=== PATIENT | male | born 1955 | race Caucasian/White ===

== ENCOUNTER → 2018-07-14 12:47 | Outpatient (CLI) | payer OTHER, SELFPAY ==
[2015-12-21 12:04] VITALS: BMI 23.8
[2018-07-14 14:04] LABS: Absolute Lymphocyte Count 2.51 X10^3/ul (0.83-4.51); Absolute Neutrophil Count 4.9 X10^3/uL (2.0-7.7); Basophil# 0.05 X10^3/uL; Basophil% 0.6 % (0-1); Eosinophil# 0.35 X10^3/uL; Eosinophils% 4.1 % (0-5); Hematocrit 49.6 % (40-54); Hemoglobin 16.7 g/dl (13.0-16.5); Lymphocyte # 2.51 X10^3/ul (4.0); Lymphocyte % 29.7 % (19-41); Mean Corp Hgb Conc 33.7 g/gl (32-36); Mean Corpuscular Hgb 31.7 pg (27.0-32.0); Mean Corpuscular Volume 94.3 fL (80-94); Mean Platelet Vol. 10.5 fl (6.2-12.0); Monocyte# 0.59 X10^3/uL; Neutrophil # 4.92 X10^3/uL (2.7-7.7); Neutrophil % 58.4 % (47-70); Platelet Count 250 K/mm3 (150-450); RBC Distribution Width SD 44.8 fl (35.1-43.9); Red Blood Count 5.26 M/mm3 (4.6-6.2); White Blood Count 8.4 K/mm3 (4.4-11.0)
[2018-07-14 14:07] LABS: POSITIVE COUNT NO; POSITIVE DIFFERENTIAL NO; POSITIVE MORPHOLOGY NO
[2018-07-14 14:17] LABS: ALB/GLOB Ratio 1.3 RATIO (0.9-2.4); AST(SGOT) 14 U/L (15-37); Alanine Aminotransfer ALT/SGPT 29 U/L (16-61); Albumin, Serum 4.4 g/dL (3.2-5.0); Alkaline Phosphatase 84 U/L (45-117); Anion Gap 6 (5-15); BUN 21 mg/dL (7-18); BUN/Creat Ratio 22.6 RATIO (10-20); Calcium,Total 9.2 mg/dL (8.5-10.1); Chloride 108 mmol/L (98-107); Cholesterol 220 mg/dL (200); Creatinine, Serum 0.93 mg/dL (0.70-1.30); EST Glomerular Filtration Rate 87 mL/min (>60); Est Glom Filt Rate - Afr Amer 105 mL/min (>60); Globulin 3.5 g/dL (2.2-4.2); Glucose 88 mg/dL (74-106); High Density Lipoprotein 48 mg/dL; Potassium 4.7 mmol/L (3.5-5.1); Protein, Total 7.9 g/dL (6.4-8.2); Sodium Level 143 mmol/L (136-145); Triglycerides 87 mg/dL; Very Low Density Lipoprotein 17 mg/dL (5-40)
[2018-07-14 14:18] LABS: Hemoglobin A1c 5.8 % (4.2-6.3)
== END ==
PROVIDERS: Family Provider Family Medicine; PCP Family Medicine; Referring Provider Family Medicine; Visit Provider Family Medicine
DX: I25.10 Atherosclerotic heart disease of native coronary artery without angina pectoris (principal); J40 Bronchitis, not specified as acute or chronic; K21.9 Gastro-esophageal reflux disease without esophagitis
CPT/HCPCS: 36415; 80053; 80061; 83036; 85025

== ENCOUNTER → 2018-07-30 09:20 | Outpatient (CLI) | payer OTHER, SELFPAY ==
[2015-12-21 12:04] VITALS: BMI 23.8
[2018-07-30 10:49] LABS: Cholesterol 220 mg/dL (200); Triglycerides 72 mg/dL
[2018-07-30 10:50] LABS: High Density Lipoprotein 46 mg/dL; Very Low Density Lipoprotein 14 mg/dL (5-40)
== END ==
PROVIDERS: Family Provider Family Medicine; PCP Family Medicine; Referring Provider Family Medicine; Visit Provider Family Medicine
DX: I25.10 Atherosclerotic heart disease of native coronary artery without angina pectoris (principal)
CPT/HCPCS: 36415; 80061

== ENCOUNTER 2018-08-07 00:16 | Emergency (ER) | payer OTHER, SELFPAY ==
[2018-08-07 00:17] VITALS: BP 172/98; PULSE 95; RESP 16; TEMP 36.8; O2SAT 97; BMI 24.5
--- NOTE | 2018-08-07 00:42 | ED.VISSUMM ---
- ER Visit Summary Date of Service: 08/07/18 Chief Complaint: [] Hematuria History of Present Illness: The patient is a 63 M emplaning of hematuria. For the last 4 days. He had intermittent hematuria and then tonight became right red blood with clots. He is on a baby aspirin that he started on Nolen's Day July 23. Denies any other symptoms. He is never had any previous urologic urology problems. He is never had this before. Physical Examination: Vital signs reviewed General: Well-nourished well-developed Head: Normocephalic atraumatic Eyes: Pupils equal round and reactive to light extraocular movements intact ENT: TMs clear no hemotympanum no trauma Neck: Nontender full range of motion Cardiovascular: Regular rate rhythm no murmurs normal S1-S2 Respiratory: No distress clear to auscultation bilaterally chest nontender Abdomen: Soft nontender nondistended normal bowel sounds no masses Back: Nontender no CVA tenderness Extremities: Nontender active range of motion ?4 extremities no trauma Skin: Normal color no trauma Neuro alert oriented cranial nerves II through XII intact normal strength sensation reflexes Test Results: [] Emergency Department Course and Treatment: [] LabWork obtained. Morales catheter inserted and flushed. Initially flushed clear that he had some bright red discoloration which has persisted. CBC normal. Chemistries normal except potassium 5.2 up from 4.7. BUN 25. Urinalysis shows no infection. Greater than 100 RBCs. Coags negative. Discussed the case with Dr. Valladares and he will see the patient in the office tomorrow. Instructed that I remove the catheter and force fluids. Patient was given this option and would like it removed. He understands he may get a clot that will stop his urine flow and he will have to return for another catheter. He is willing to take this risk. He will stop his aspirin at the request of Dr. Valladares and follow-up as an outpatient. Treatment Plan: [] Disposition: [] Impression: [] Acute gross hematuria This note was generated with [employer] software. It may contain incorrect words, spelling, and punctuation that were not noted in review of the chart prior to signing ED Disposition - Plan for ED Patient: Referrals: Bi Trujillo MD [Primary Care Provider] -
[2018-08-07 00:49] LABS: Bacteria 0 SEEN /hpf (None Seen); Mucous, Urine 0 SEEN /hpf (<or=2+); Squamous Epithelial Cells - UA 0 SEEN /hpf (0-5); White Blood Cells 0 SEEN /hpf (0-5)
[2018-08-07 00:53] LABS: Color, Urine Red (Yellow); Glucose, Dipstick Normal (Normal); Ketone-Dipstick 15 mg/dl (Negative); Leukocyte Esterase-Dipstick Negative /ul (Negative); Nitrite-Dipstick Negative (Negative); Occult Blood-Urine 250 /ul (Negative); Protein-Dipstick 500 mg/dl (Negative); Specific Gravity, Urine 1.015 (1.002-1.030); Urine Bilirubin Dipstick Negative (Negative); Urine Clarity Turbid (Clear); Urine Urobilinogen Normal (Normal)
[2018-08-07 00:54] LABS: Red Blood Cells-Urine > 100 SEEN /hpf (0-5)
[2018-08-07 01:02] LABS: Absolute Lymphocyte Count 2.48 X10^3/ul (0.83-4.51); Absolute Neutrophil Count 5.5 X10^3/uL (2.0-7.7); Basophil# 0.09 X10^3/uL; Basophil% 0.9 % (0-1); Eosinophil# 0.55 X10^3/uL; Eosinophils% 5.7 % (0-5); Hematocrit 45.9 % (40-54); Hemoglobin 15.9 g/dl (13.0-16.5); Lymphocyte # 2.48 X10^3/ul (4.0); Lymphocyte % 25.8 % (19-41); Mean Corp Hgb Conc 34.6 g/gl (32-36); Mean Corpuscular Hgb 33.3 pg (27.0-32.0); Mean Corpuscular Volume 96.2 fL (80-94); Mean Platelet Vol. 10.7 fl (6.2-12.0); Monocyte# 1.03 X10^3/uL; Monocyte% 10.7 % (0-10); Neutrophil # 5.45 X10^3/uL (2.7-7.7); Neutrophil % 56.6 % (47-70); POSITIVE COUNT NO; POSITIVE DIFFERENTIAL NO; POSITIVE MORPHOLOGY NO; Platelet Count 232 K/mm3 (150-450); RBC Distribution Width CV 13.3 % (11.6-14.6); RBC Distribution Width SD 43.9 fl (35.1-43.9); Red Blood Count 4.77 M/mm3 (4.6-6.2); White Blood Count 9.6 K/mm3 (4.4-11.0)
[2018-08-07 01:20] LABS: Prothrombin Time (Protime)PT. 13.1 SECONDS (11.7-14.9)
[2018-08-07 01:21] LABS: Partial Thromboplast Time 31.5 Seconds (24.1-36.2)
[2018-08-07 01:29] LABS: Anion Gap 6 (5-15); BUN 25 mg/dL (7-18); BUN/Creat Ratio 25.6 RATIO (10-20); Calcium,Total 8.9 mg/dL (8.5-10.1); Chloride 107 mmol/L (98-107); Creatinine, Serum 0.98 mg/dL (0.70-1.30); EST Glomerular Filtration Rate 82 mL/min (>60); Est Glom Filt Rate - Afr Amer 99 mL/min (>60); Estimated Creatinine Clearance 91.01 ml/min; Glucose 90 mg/dL (74-106); Potassium 5.2 mmol/L (3.5-5.1); Sodium Level 138 mmol/L (136-145)
--- NOTE | 2018-08-07 01:55 | ED.DEP ---
ED Disposition - Plan for ED Patient: Disposition: Home or Assisted Living Instructions: What is Hematuria?, Hematuria: Possible Causes Referrals: Hilario Valladares MD [STAFF PHYSICIAN] -
[2018-08-07 02:40] VITALS: BP 158/60; PULSE 91; RESP 16; O2SAT 93
== END 2018-08-07 02:40 | disposition home or self-care (01) ==
PROVIDERS: Emergency Provider Emergency Medicine; Family Provider Family Medicine; PCP Family Medicine
DX: R31.0 Gross hematuria (principal); Z72.0 Tobacco use
CPT/HCPCS: 51702; 80048; 81001; 85025; 85610; 85730; 99284; A4216

== ENCOUNTER 2018-08-28 12:42 | Day surgery (SDC) | payer OTHER, SELFPAY ==
--- NOTE | 2018-08-27 17:53 | HP.PCM_ITS ---
History and Physical Date of Admission: 08/28/18 I have blood in my urine. HPI: JARON MIRELES is a 63 year-old male patient who was referred by MELVIN TRUJILLO M.D. who is here for blood in the urine. 63 yo male new patient presents for gross hematuria with clots. This started last week, had it for about 4 days, it got worse with clots so he went to [facility] ER on 08/07/18. UA positive for blood but not bacteria. Bhatti was inserted, bladder was irrigated, bhatti was pulled. He then went to [place] ER because he wanted to see a urologist immediately. They started him on bactrim, did a CT abd pel w/o contrast. Left flank pain which radiated around to the LLQ started after his second ER visit. That resolved with increased water intake. Now has mild d ysuria. He had one kidney stone about 20 yrs ago, had ?ESWL then. I looked at his CT disk, shows 2 large stones in left kidney. Started ASA 81 mg on 07/23/18, stopped it last week +smoker, 40 pack year hx pt doesn't have a med list, says he takes a prescription med but doesn't know what it is or what it's for. nurse here called Dr Trujillo's office and put meds in his chart He did see the blood in his urine. He has seen blood clots. He does have a burning sensation when he urinates. He is not currently having trouble urinating. He is not having pain. He has not recently had unwanted weight loss. 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 Smokes 1 pack per day. Tobacco Use Assessment Completed: Used Tobacco in last 30 days? Does not use smokeless tobacco. Has never drank. Does not use drugs. Drinks 3 caffeinated drinks per day. Has not had a blood transfusion. REVIEW OF SYSTEMS: Constitutional: Patient denies fever, chills, weight loss, and weight gain. Eyes: Patient denies cataracts, blurry vision, and vision problems. Ears, Nose, Mouth, Throat: Patient denies hearing loss, sinus infections, nasal stuffiness, and sleep apnea. Cardiovascular: Patient denies chest pains, swollen ankles, irregular heartbeat, and pacemaker/defibrillator. Respiratory: Patient denies shortness of breath, wheezing, use oxygen, cpap at night., and copd. Gastrointestinal: Patient denies abdominal pain, nausea/vomiting, and change in bowels. Genitourinary: Patient reports frequent urination and blood in urine. Patient denies urinary retention, get up at night to void, leakage of urine, frequent urinary tract infections, history of stones, difficulty starting stream, weak stream, and bedwetting. Musculoskeletal: Patient denies sore muscles, back pain, gout, and arthritis. Integumentary/Skin: Patient denies rash, persistent itching, and skin cancer history. Neurological: Patient denies numbness, dizziness, stroke/tia, and history of falling/unsteadiness.. Hematologic/Lymphatic: Patient denies swollen glands, abnormal bleeding, transfusion history, and blood clots/dvt/pulmonary embolism. VITAL SIGNS: 08/10/2018 03:36 PM Weight 196 lb / 88.9 kg Height 75 in / 190.5 cm BP 160/84 mmHg BMI 24.5 kg/m? PHYSICAL EXAMINATION: Anus and Perineum: No hemorrhoids. No anal stenosis. No rectal fissure, no anal fissure. No edema, no dimple, no perineal tenderness, no anal tenderness. Scrotum: No lesions. No edema. No cysts. No warts. Epididymides: Right: no spermatocele, no masses, no cysts, no tenderness, no induration, no enlargement. Left: no spermatocele, no masses, no cysts, no tenderness, no induration, no enlargement. Testes: No tenderness, no swelling, no enlargement left testes. No tenderness, no swelling, no enlargement right testes. Normal location left testes. Normal location right testes. No mass, no cyst, no varicocele, no hydrocele left testes. No mass, no cyst, no varicocele, no hydrocele right testes. Urethral Meatus: Normal size. No lesion, no wart, no discharge, no polyp. Normal location. Penis: Circumcised, no warts, no cracks. No dorsal Peyronie's plaques, no left corporal Peyronie's plaques, no right corporal Peyronie's plaques, no scarring, no warts. No balanitis, no meatal stenosis. Prostate: Prostate about 30 grams. Left lobe normal consistency, right lobe normal consistency. Symmetrical lobes. No prostate nodule. Left lobe no tenderness, right lobe no tenderness. Seminal Vesicles: Nonpalpable. Sphincter Tone: Normal sphincter. No rectal tenderness. No rectal mass. MULTI-SYSTEM PHYSICAL EXAMINATION: Constitutional: Well-nourished. No physical deformities. Normally developed. Good grooming. Neck: Neck symmetrical, not swollen. Normal tracheal position. Respiratory: No labored breathing, no use of accessory muscles. Neurologic / Psychiatric: Oriented to time, oriented to place, oriented to person. No depression, no anxiety, no agitation. Gastrointestinal: No mass, no tenderness, no rigidity, non obese abdomen. Eyes: Normal conjunctivae. Normal eyelids. Musculoskeletal: Normal gait PAST DATA REVIEWED: Source Of History: Patient Records Review: Previous Hospital Records Urine Test Review: Urinalysis X-Ray Review: C.T. Abdomen/Pelvis: Reviewed Films. Discussed With Patient. 2 large stones left kidney PROCEDURES: Urinalysis - 14597 Dipstick Dipstick Cont'd Specimen: Voided Blood: about 50 Appearance: Clear pH: 6.0 Color: Yellow Protein: Neg Glucose: Normal Urobilinogen: Neg Bilirubin: Neg Nitrites: Neg Ketones: Neg Leukocyte Esterase: Neg ASSESSMENT: ICD-10 Details 1 : Gross hematuria - R31.0 2 Calculus of kidney - N20.0 PLAN: Document Letter(s): Created for Patient: Clinical Summary The patient and I talked at length about etiologies of hematuria. We discussed the implications of hematuria and many of the possible etiologies including infection, malignancy, scar tissue, idiopathic, urinary tract stones, intrinsic renal disease, the use of blood thinners, bacteriuria, heavy lifting, straining, constipation, UTI, and others. We discussed the fact that hematuria can be krysta cative of serious urinary tract pathology. Alternative diagnostic and treatment options were discussed with the patient in detail. All questions were answered. I explained that the standard evaluation includes a radiologic test to evaluate the kidneys, ureters, and bladder, a urine culture and cystology or FISH when indicated and a cystoscopy with a possible biopsy to complete the evaluation. The patient gave fully informed consent to proceed with diagnostic and treatment options to evaluate their hematuria. The patient understands that if a urologic evaluation of their hematuria is normal, referral to a rubber worker may be recommended. The patient was given instructions to call for abdominal pain, pelvic pain, perirectal pain, nausea, vomiting, diarrhea, fever over 100??F, chills, co ntinued hematuria, dysuria, frequency, urgency, or urge incontinence. Notes: 63 yo male with recent gross hematuria with clots. He is a long time smoker. CT w/o contrast at [facility] shows 2 large stones left kidney. Discussed possible causes of hematuria. Schedule cystoscopy in office. I'll review case with Dr Valladares in case he wants to do cysto in OR and treat stones. Signed by Paty Blancas, ANP-BC on 08/10/18 at 4:24 PM (EST) APPENDED NOTES: Urine cx neg from [facility]. Plan for cysto Left sent and Left ESWL.
[2018-08-28 13:17] VITALS: BP 144/79; PULSE 84; RESP 16; TEMP 36.6; O2SAT 98; BMI 23.5
--- NOTE | 2018-08-28 14:05 | RAD_ITS ---
STUDY: X-RAY - ABDOMEN/PELVIS REASON FOR EXAM: Male, 63 years old. kidney stone, pre op TECHNIQUE: Two AP supine views of the abdomen and pelvis. COMPARISON: None. FINDINGS: Normal visualized lung bases. There is an unremarkable bowel gas pattern. There is no demonstrated free abdominal air. There is a 6 mm stone in the upper pole of the left kidney. The visualized liver, spleen and kidneys are grossly normal in size and morphology. Normal soft tissue structures. There are diffuse degenerative changes of the visualized lumbar spine. RAD/Abdomen Single View IMPRESSION: There is a 6 mm stone in the upper pole of the left kidney. Electronically Signed: Mehnaz Watson, at 14:29 EDT Tel , Service support ,
[2018-08-28] MEDS: Cefazolin 2 GM in 0.9% Normal Saline 100 ML IV (15:17)
--- NOTE | 2018-08-28 16:21 | DCINST_ITS ---
Discharge Diet: Light diet - advance as tolerated Discharge Activity: Return to Normal Activity, May Not Drive - for 2 days. Call your doctor if you observe: Fever of 101 or Higher Suture Line Care: Avoid Pulling/Pushing, Avoid Pinching/Bending Instructions: Shock Wave Lithotripsy Allergies/Adverse Reactions: Allergies No Known Allergies Allergy (Verified 08/28/18 13:15) Medications to take at Discharge Aspirin [Aspir 81] 81 mg PO DAILY 08/26/18 Famotidine/Ca Carb/Mag Hydrox [Pepcid Complete Tablet Chew] 1 - 2 each PO DAILY 08/26/18 Multivitamin with Minerals [Multiple Vitamin] 1 each PO DAILY 08/26/18 Umeclidinium Brm/Vilanterol Tr [Anoro Ellipta 62.5-25 Mcg INH] 1 puff IH DAILY 08/26/18 Acetaminophen [Tylenol Extra Strength] 500 mg PO Q4H PRN PRN #20 tablet 08/28/18 Ibuprofen 600 mg PO Q6H PRN PRN #20 tablet 08/28/18 The following prescriptions were given: Acetaminophen [Tylenol Extra Strength] 500 mg PO Q4H PRN PRN #20 tablet PRN Reason: Pain Ibuprofen 600 mg PO Q6H PRN PRN #20 tablet PRN Reason: Pain Primary Care Physician: Bi Trujillo MD [Primary Care Provider] - Test Results: Test results from this visit will be discussed in further detail at your follow- up appointment, if applicable. Please Follow Up With: Hilario Valladares MD When: please call to make an appointment.
--- NOTE | 2018-08-28 16:21 | PCM.OPRPT ---
Report of Operation Date of Procedure: 08/28/18 Pre-Operative Diagnosis: Gross hematuria and left renal calculi Post-Operative Diagnosis: Same, plus left renal calculi and left ureteral calculi in the distal ureter Surgery/Procedure Performed:: Cystoscopy, ureteroscopy laser lithotripsy of stone in the distal left ureter and left stent placement and left ESWL of stone in the left kidney Description of Surgical Findings:: 63-year-old male presented to the hospital with severe pain and gross hematuria CAT scan was done demonstrated a stone in the left kidney, today we plan to taken the surgery do a cystoscopy to evaluate the bladder as to why he had a kidney stone also plan to treat the stone in the left kidney. Patient is taken back to the operating room at the smooth induction of general anesthesia he was placed in dorsolithotomy position the testicles are prepped and draped in usual sterile fashion went into the bladder with a flexible cystoscope entire length the urethra is normal the sphincter was normal the bulbar urethra is normal the prostate was normal inside the bladder he had bullous edema and you could see a stone lodged in the distal left ureter. I then removed the flexible cystoscope went in with a SlimLine rigid ureteroscope used a wire and cannulated the left ureter and then backloaded off the wire left the wire in place and then next the wire went back in with a SlimLine ureteroscope and engaged the stone with laser lithotripsy laser the stone and little tiny fragments once the stone was lasered completely then over the wire place a stent the stent was placed up into the left kidney and coiled in the bladder pulled the wire the stent coiled in the kidney bladder good position and then we repositioned the stone in the left kidney over the lithotripter table and proceed with shockwave lithotripsy delivered a total of 3000 shockwaves of the stone at a rate of 90 kV between 5-7 kV the stone appeared to break up successfully. Patient anesthetic is currently being reversed plan to see him back in a week or so with a KUB will get rid of the stent which we left on a string. Type of Anesthesia:: General Drains: stent Left side - Admit VTE Documentation VTE Present on Admission: No VTE Mechan Device Prophylaxis: SCD's
[2018-08-28 16:34] VITALS: BP 126/79; BP 144/79; PULSE 73; RESP 16; TEMP 36.3; O2SAT 93
[2018-08-28 16:45] VITALS: BP 133/84; BP 144/79; PULSE 85; RESP 18; O2SAT 95
[2018-08-28] MEDS: Ketorolac 15 MG/ML Vial IV (16:52)
[2018-08-28 17:00] VITALS: BP 144/79; BP 150/88; PULSE 78; RESP 18; O2SAT 95
[2018-08-28 17:10] VITALS: BP 144/79; BP 155/85; PULSE 77; RESP 16; TEMP 36.4; O2SAT 96
[2018-08-28 17:39] VITALS: BP 144/79
== END 2018-08-28 17:39 | disposition home or self-care (01) ==
LOC: SDC 12:43 → AC 12:58
PROVIDERS: Family Provider Family Medicine; PCP Family Medicine; Referring Provider Urology; Visit Provider Urology
PROC: (CPT 50590; principal; 2018-08-28 14:30)
DX: N20.2 Calculus of kidney with calculus of ureter (principal); Z87.442 Personal history of urinary calculi; K21.9 Gastro-esophageal reflux disease without esophagitis; I25.10 Atherosclerotic heart disease of native coronary artery without angina pectoris; F17.200 Nicotine dependence, unspecified, uncomplicated; Z79.82 Long term (current) use of aspirin
CPT/HCPCS: 52356; 74018; J7120; C1769; C2617; J2405

== ENCOUNTER → 2018-09-01 10:25 | Outpatient (CLI) | payer OTHER, SELFPAY ==
[2018-08-28 13:17] VITALS: BMI 23.5
--- NOTE | 2018-09-01 10:30 | RAD_ITS ---
HISTORY: Recent history of left side kidney stones Tamp; bladder stones EXAM/TECHNIQUE: XR Abdomen 1 View: COMPARISON: 08/28/18 abdominal radiograph FINDINGS: # of images incl. paperwork: 2 3 mm calcification along the medial, proximal aspect of the left ureteral stent at the level just above the left L3 transverse process, possibly a small stone. Left ureteral stent in place. No apparent free air or bowel obstruction. Possible residual left renal stones; stool overlies the left kidney which makes evaluation suboptimal. RAD/Abdomen Single View IMPRESSION: Left ureteral stent in place. Possible 3 mm stone adjacent to the proximal stent. at 1152 Reported and signed by: Harry Martinez MD Electronically Signed: Harry Martinez, at 11:51 EDT Tel , Service support ,
== END ==
PROVIDERS: Family Provider Family Medicine; PCP Family Medicine; Referring Provider Nurse Practitioner Adult Health; Visit Provider Nurse Practitioner Adult Health
DX: N20.0 Calculus of kidney (principal)
CPT/HCPCS: 74018

== ENCOUNTER → 2018-11-25 10:32 | Outpatient (CLI) | payer OTHER, SELFPAY ==
[2018-11-25 12:49] LABS: Absolute Lymphocyte Count 1.77 X10^3/ul (0.83-4.51); Absolute Neutrophil Count 3.9 X10^3/uL (2.0-7.7); Basophil# 0.06 X10^3/uL; Basophil% 0.9 % (0-1); Eosinophil# 0.25 X10^3/uL; Eosinophils% 3.8 % (0-5); Hemoglobin 15.7 g/dl (13.0-16.5); Lymphocyte # 1.77 X10^3/ul (4.0); Lymphocyte % 26.7 % (19-41); Mean Corp Hgb Conc 34.1 g/gl (32-36); Mean Corpuscular Hgb 31.3 pg (27.0-32.0); Mean Corpuscular Volume 91.6 fL (80-94); Mean Platelet Vol. 11.3 fl (6.2-12.0); Monocyte# 0.61 X10^3/uL; Monocyte% 9.2 % (0-10); Neutrophil # 3.92 X10^3/uL (2.7-7.7); Neutrophil % 59.2 % (47-70); Platelet Count 221 K/mm3 (150-450); Red Blood Count 5.02 M/mm3 (4.6-6.2); White Blood Count 6.6 K/mm3 (4.4-11.0)
[2018-11-25 12:51] LABS: POSITIVE COUNT NO; POSITIVE DIFFERENTIAL NO; POSITIVE MORPHOLOGY NO
[2018-11-25 13:27] LABS: ALB/GLOB Ratio 1.4 RATIO (0.9-2.4); AST(SGOT) 14 U/L (15-37); Alanine Aminotransfer ALT/SGPT 19 U/L (16-61); Alkaline Phosphatase 78 U/L (45-117); Anion Gap 9 (5-15); BUN 23 mg/dL (7-18); BUN/Creat Ratio 24.4 RATIO (10-20); Chloride 107 mmol/L (98-107); Cholesterol 216 mg/dL (200); Creatinine, Serum 0.94 mg/dL (0.70-1.30); EST Glomerular Filtration Rate 86 mL/min (>60); Est Glom Filt Rate - Afr Amer 104 mL/min (>60); Globulin 2.9 g/dL (2.2-4.2); Glucose 80 mg/dL (74-106); High Density Lipoprotein 45 mg/dL; Magnesium 2.2 mg/dL (1.6-2.6); Potassium 4.5 mmol/L (3.5-5.1); Protein, Total 6.9 g/dL (6.4-8.2); Sodium Level 143 mmol/L (136-145); Thyroid Stim Hormone (TSH) 3.06 uIU/mL (0.358-3.74); Triglycerides 95 mg/dL; Very Low Density Lipoprotein 19 mg/dL (5-40)
== END ==
PROVIDERS: Family Provider Family Medicine; PCP Family Medicine; Referring Provider Family Medicine; Visit Provider Family Medicine
DX: K21.9 Gastro-esophageal reflux disease without esophagitis (principal); I25.10 Atherosclerotic heart disease of native coronary artery without angina pectoris; J31.0 Chronic rhinitis
CPT/HCPCS: 36415; 80053; 80061; 83735; 84443; 85025

== ENCOUNTER → 2018-12-23 08:47 | Outpatient (CLI) | payer OTHER, SELFPAY ==
[2018-12-23 10:46] LABS: ALB/GLOB Ratio 1.4 RATIO (0.9-2.4); AST(SGOT) 17 U/L (15-37); Alanine Aminotransfer ALT/SGPT 22 U/L (16-61); Albumin, Serum 3.9 g/dL (3.2-5.0); Alkaline Phosphatase 82 U/L (45-117); Anion Gap 6 (5-15); BUN 20 mg/dL (7-18); BUN/Creat Ratio 18.3 RATIO (10-20); CPK Total, Creatine Kinase 170 U/L (39-308); Calcium,Total 8.7 mg/dL (8.5-10.1); Chloride 106 mmol/L (98-107); Cholesterol 137 mg/dL (200); Creatinine, Serum 1.09 mg/dL (0.70-1.30); EST Glomerular Filtration Rate 72 mL/min (>60); Est Glom Filt Rate - Afr Amer 87 mL/min (>60); Globulin 2.8 g/dL (2.2-4.2); Glucose 92 mg/dL (74-106); High Density Lipoprotein 41 mg/dL; Potassium 4.2 mmol/L (3.5-5.1); Protein, Total 6.7 g/dL (6.4-8.2); Sodium Level 140 mmol/L (136-145); Triglycerides 70 mg/dL; Very Low Density Lipoprotein 14 mg/dL (5-40)
== END ==
PROVIDERS: Family Provider Family Medicine; PCP Family Medicine; Referring Provider Family Medicine; Visit Provider Family Medicine
DX: E78.5 Hyperlipidemia, unspecified (principal)
CPT/HCPCS: 36415; 80053; 80061; 82550

== ENCOUNTER → 2019-02-04 14:31 | Outpatient (CLI) | payer OTHER, SELFPAY ==
[2019-02-04 15:39] LABS: Absolute Lymphocyte Count 2.16 X10^3/uL (0.83-4.51); Absolute Neutrophil Count 5.4 X10^3/uL (2.0-7.7); Basophil# 0.08 X10^3/uL; Basophil% 0.9 % (0-1); Eosinophil# 0.26 X10^3/uL; Hematocrit 46.4 % (40-54); Hemoglobin 15.8 g/dL (13.0-16.5); Lymphocyte # 2.16 X10^3/ul (4.0); Mean Corp Hgb Conc 34.1 g/dL (32-36); Mean Corpuscular Hgb 31.9 pg (27.0-32.0); Mean Corpuscular Volume 93.7 fL (80-94); Mean Platelet Vol. 10.8 fl (6.2-12.0); Monocyte# 0.67 X10^3/uL; Monocyte% 7.8 % (0-10); NRBC Flagged by Analyzer 0 % (0-5); Neutrophil # 5.44 X10^3/uL (2.7-7.7); Platelet Count 269 K/mm3 (150-450); RBC Distribution Width CV 12.7 % (11.6-14.6); RBC Distribution Width SD 43.6 fl (35.1-43.9); Red Blood Count 4.95 M/mm3 (4.6-6.2); White Blood Count 8.6 K/mm3 (4.4-11.0)
[2019-02-04 15:55] LABS: Vitamin B12 799 pg/mL (211-911)
[2019-02-04 16:35] LABS: ALB/GLOB Ratio 1.3 RATIO (0.9-2.4); AST(SGOT) 16 U/L (15-37); Alanine Aminotransfer ALT/SGPT 27 U/L (16-61); Albumin, Serum 4.2 g/dL (3.2-5.0); Alkaline Phosphatase 89 U/L (45-117); Anion Gap 6 (5-15); BUN 15 mg/dL (7-18); BUN/Creat Ratio 15.4 RATIO (10-20); Calcium,Total 8.8 mg/dL (8.5-10.1); Chloride 107 mmol/L (98-107); Creatinine, Serum 0.98 mg/dL (0.70-1.30); EST Glomerular Filtration Rate 82 mL/min (>60); Est Glom Filt Rate - Afr Amer 99 mL/min (>60); Ferritin 271 ng/mL (26-388); Globulin 3.3 g/dL (2.2-4.2); Glucose 88 mg/dL (74-106); Potassium 4.2 mmol/L (3.5-5.1); Protein, Total 7.5 g/dL (6.4-8.2); Sodium Level 141 mmol/L (136-145); Thyroid Stim Hormone (TSH) 2.84 uIU/mL (0.358-3.74)
[2019-02-12 12:43] LABS: ANTINUCLEAR ANTIBODIES DIRECT Positive (Negative)
[2019-02-15 20:07] LABS: Anti-Centromere B Ab <0.2 AI (0.0-0.9); Anti-Chromatin 0.3 AI (0.0-0.9); Anti-Jo <0.2 AI (0.0-0.9); Anti-Scleroderma-70 AB <0.2 AI (0.0-0.9); RNP Ab <0.2 AI (0.0-0.9); SJOGREN'S Anti-SS-A test < 0.2 AI (0.0-0.9); SJOGREN'S Anti-SS-B test < 0.2 AI (0.0-0.9); Smith Ab <0.2 AI (0.0-0.9)
[2019-02-16 09:54] LABS: Anti-dsDNA Ab 12 IU/mL (0-9)
== END ==
PROVIDERS: Family Provider Family Medicine; PCP Family Medicine; Referring Provider Family Medicine; Visit Provider Family Medicine
DX: I25.10 Atherosclerotic heart disease of native coronary artery without angina pectoris (principal); R53.83 Other fatigue
CPT/HCPCS: 36415; 80053; 82607; 82728; 82746; 84443; 85025; 86038; 86225; 86235

== ENCOUNTER → 2019-02-23 12:52 | Outpatient (CLI) | payer OTHER, SELFPAY ==
--- NOTE | 2019-02-23 13:00 | CT_ITS ---
STUDY: CT CHEST WITHOUT CONTRAST REASON FOR EXAM: Male, 63 years old. Atypical chest pain for 2 months RADIATION DOSAGE (If Supplied By Facility): CTDIvol = ( 10.26 ) mGy, DLP = ( 425.43 ) mGycm TECHNIQUE: Transaxial imaging was performed without the administration of intravenous contrast material. Individualized dose optimization techniques were used for this CT. COMPARISON: None. FINDINGS: Lungs are clear of acute infiltrate. There is a tiny calcified granuloma in right lower lobe. Minor pleural parenchymal scarring in the pulmonary apices. No pleural effusion or pneumothorax Heart is normal size. There is mild coronary artery calcification Tiny calcified middle mediastinal and right hilar nodes.. Normal unenhanced pulmonary arteries. Atherosclerotic changes of the aorta without evidence for aneurysm Dorsal spine demonstrates moderate spondylosis Small hiatal hernia noted. Granulomatous calcifications are noted within normal size spleen.. CT/Chest without Contrast IMPRESSION: ASHD and mild coronary artery calcification. Old granulomatous disease in right lower lobe No acute abnormality Electronically Signed: Leif Dean MD at 17:01 EDT , Service support ,
== END ==
PROVIDERS: Family Provider Family Medicine; PCP Family Medicine; Referring Provider Family Medicine; Visit Provider Family Medicine
DX: R07.89 Other chest pain (principal)
CPT/HCPCS: 71250

== ENCOUNTER 2019-03-04 06:38 | Day surgery (SDC) | payer OTHER, SELFPAY ==
[2019-02-26 09:30] VITALS: BMI 22.9
[2019-03-04] VITALS (24 sets, daily range): BP systolic 110–175; BP diastolic 63–109; PULSE 55–98; RESP 12–22; TEMP 36.6–37; O2SAT 96–100; BMI 21.6; BMI 22.3
--- NOTE | 2019-03-04 09:59 | CL.D_ITS ---
Patient Name: JARON MIRELES Study Date: 03/04/2019 Performing: Keith Azevedo MD Ht: 75 inches 190.5 cm : 1955 Wt: 173 lbs 78.47 kg Age: 63 Gender: male BSA: 2.06 PROCEDURE(S) PERFORMED [id number]/LV [id number] W OR WO PTCA, SINGLE CORONARY ARTERY [id number] W OR WO PTCA, SINGLE CORONARY ARTERY CLINICAL PROFILE AND INDICATIONS Indications: Suspected CAD Heart Failure: None Stress/Imaging Stress/Image Study Performed: No CAD Presentations: Unstable angina. CONCLUSIONS Significant ostial circumflex artery stenosis and severe mid left anterior descending artery stenosis . Diffuse disease noted in the right coronary artery. Preserved ejection fraction. RECOMMENDATIONS Referred for immediate PCI DESCRIPTION OF PROCEDURE The patient arrived to the procedure lab. The risks and benefits of the procedure as well as a full d escription of our services here and current unavailability of surgical backup were fully explained to the patient and/or their significant other prior to the catheterization. The Timeout was completed, verifying the correct patient and procedure. The patient's procedural site was prepped and draped in the usual fashion. Local anesthetic was given subcutaneously to right radial region with Lidocaine 2% . Using a modified Seldinger technique, arterial access was obtained via the right radial artery, a 6 Fr sheath was inserted. Right Coronary Artery selective angiography was then performed in multiple v iews using a 5 Fr. 4.0 Webster catheter. Left Coronary Artery selective angiography was performed in mu ltiple views using a 5 Fr. 4.0 Webster catheter. Left Ventriculography was performed in JOSEPH projection using a 5 Fr. Pigtail catheter. LV to AO pullback pressures were then recorded. CORONARY ANGIOGRAPHY DOMINANCE: Right Dominant LEFT HEART ASSESSMENT Left Ventricular Ejection Fraction: by LV Gram 60 % Normal LV wall motion Normal Left Ventricular systolic function LEFT MAIN: Mild calcification, No significant disease noted LEFT ANTERIOR DESCENDING ARTERY: MID LAD: Diffusely diseased up to 75 % CIRCUMFLEX ARTERY: OSTIAL CIRC: 85 % Stenosis RAMUS: No significant disease noted RIGHT CORONARY ARTERY: PROX RCA: Mild luminal irregularities less than 30% MID RCA: Mild luminal irregularities COMPLICATIONS PROCEDURE MEDICATIONS Versed 1 mg IV Fentanyl 50 mcg IV Versed 1 mg IV Oxygen: 2 L/min via nasal cannula Baby Aspirin (81mg) 1 Tabs PO @ 03/04/2019 07:03:44 Heparin 5000 unit(s) IV 03/04/2019 08:24:01 Nitro 100 mcg IC 03/04/2019 08:44:37 Nitro 200 mcg IC 03/04/2019 08:48:32 SUMMARY OF HEMODYNAMIC DATA Time AIR REST ECG 07:05:29 AO 115/76 (96) SA 08:09:09 LV 104/1, 6 08:17:25 LV 107/3, 6 08:17:32 LV 124/-1, 12 08:18:23 LVp 123/0, 13 08:18:26 AOp 141/74 (105) 08:18:31 Signed By Keith Azevedo MD On 03/04/2019 09:03:25 Keith Azevedo MD
--- NOTE | 2019-03-04 10:00 | EKG12_ITS ---
Test Reason : POST PCI Blood Pressure : / mmHG Vent. Rate : 073 BPM Atrial Rate : 073 BPM P-R Int : 164 ms QRS Dur : 082 ms QT Int : 384 ms P-R-T Axes : 074 074 067 degrees QTc Int : 423 ms Normal sinus rhythm with sinus arrhythmia Normal ECG When compared with ECG of 04-DEC-2015 11:20, Premature atrial complexes are no longer Present Confirmed by CHRISTIAN DAVIS ([id number]), thermodynamics professor JOSE MIGUEL DALLAS ([id number]) on 03/16/2019 1:25:01 PM Referred By: Keith Azevedo Confirmed By:CHRISTIAN DAVIS
[2019-03-04] MEDS: 0.9% Normal Saline 1,000 ML 100 ML IV (10:24)
[2019-03-04 10:43] LABS: Hematocrit 45.4 % (40-54); Hemoglobin 15.5 g/dL (13.0-16.5); Mean Corp Hgb Conc 34.1 g/dL (32-36); Mean Corpuscular Volume 93.6 fL (80-94); Mean Platelet Vol. 10.4 fl (6.2-12.0); Platelet Count 241 K/mm3 (150-450); RBC Distribution Width CV 12.7 % (11.6-14.6); RBC Distribution Width SD 43.8 fl (35.1-43.9); Red Blood Count 4.85 M/mm3 (4.6-6.2)
--- NOTE | 2019-03-04 11:30 | CASEMGMT ---
AMINATA VARGAS NOTE: Plans are for pt to be discharged home on Brilinta. Pt and given Brilinta savings card and instructed on use. They were both made aware of the importance of talking with [facility] if [id number] cost is not affordable for refills to discuss other options. They both voice understanding, Birgit AUGUSTIN RN CM
--- NOTE | 2019-03-04 11:53 | CRPHASE1_ITS ---
Patient Communication Former Patient:: Phase I - AT BEDSIDE, Phase II PHII Cardiac Rehab Discussed with Patient:: Yes Guide to Cardiac Rehab Given to Patient:: Yes Cardiac Rehab Facility Choice List Given to Patient:: Yes Choice Program [facility] PHII:: Communication Given to CR, Refer to [facility] Choice Program Other:: Communication Given to CR, With permission faxed order and referral information Boot Repairer:: Harriet Osborne Refer Phase II Cardiac Rehab:: Yes Sessions:: 36 sessions - 3 days/wk, 12 weeks Risk Factors/Lifestyle Smoking Status: Current every day smoker Hx Hypertension: Yes Hx Diabetes Mellitus Type 1: No Hx Diabetes Mellitus Type 2: No Hx Metabolic Disorders: No Hx Dyslipidemia: Yes Hx Obesity: No Height: 6 ft 3 in - BMI 22.3 Stress: Home/Family Substance Abuse: No Risk Factor for Sedentary Lifestyle: Moderate Risk Family History: Family History (Last Reviewed 02/26/19 @ 11:14 by Keith Azevedo MD) Brother CVA (cerebral vascular accident) Diabetes Brother CVA (cerebral vascular accident) Diabetes Sister Diabetes Hypertension Son Hypertension Father Myocardial infarction, Onset Age: 41 Family History: Diabetes, Heart Disease, Hypertension, Stroke Phase I Education Given On:: [place], Nutrition, Antiplatelet medication, Smoking cessation Issues Affecting Care:: None Knowledge of Condition:: Yes Learning Preferences: Verbal, Written Hospital Course Presenting Symptoms:: EXERTIONAL CHEST PAINS Medical/Surgical History ND:: No Angina:: Yes CAD:: No Cardiomyopathy:: No COPD:: Yes Diabetes:: No Hypertension:: No Dyslipidemia:: Yes GERD:: Yes Discharge/Home/Social Eval Discharge Disposition: Home Marital Status: Cardiac Rehabilitation Info Cardiac Rehabilitation Program Information: Cardiac Rehabilitation is important for patients like you who are recovering from a heart problem. Cardiac rehabilitation programs are recognized as integral to the continued care of the patient with coronary heart disease. The cardiac rehabilitation program is designed to optimize a patient's physical, psychological, and social functioning. Health clinical manager home care work in cardiac rehabilitation programs and assist you with getting the treatments you need to get stronger and healthier - like exercise, healthy eating habits, and medications. Cardiac rehabilitation has been show to help people with heart problems live longer and have better life enjoyment than people who do not go to cardiac rehabilitation. Please contact the Cardiac Rehabilitation Program at [facility] at in two weeks if you have not heard from them.
--- NOTE | 2019-03-04 11:56 | CRPH1.INSTRU ---
General Education CAD and cardiac anatomy and function:: Patient communicates acknowledgment, Family communicates acknowledgment Explanation of diagnoses and procedures:: Patient communicates acknowledgment, Family communicates acknowledgment Sign/Symptoms of [place]:: Patient communicates acknowledgment, Family communicates acknowledgment Antiplatelet therapy: Patient communicates acknowledgment, Family communicates acknowledgment Proper use of NTG-SL: Not instructed Emergency procedures and activation of EMS: Patient communicates acknowledgment, Family communicates acknowledgment Compliance of all prescribed medications: Patient communicates acknowledgment, Family communicates acknowledgment - AT BEDSIDE Smoking Patient Nicotine/Smoking Risk Factors Are:: Cigarettes Recommendations Include:: Participation in a smoking cessation program Nicotine/Smoking Response Code:: Patient communicates acknowledgment, Family communicates acknowledgment Dyslipidemia Patient Dyslipidemia Risk Factors Are:: Total Cholesterol, Triglycerides, HDL, LDL Recommendations Include:: Lipid profile not available, Reviewed NCEP/ATP guidelines, Therapeutic Lifestyle Change dietary guidelines Dyslipidemia Response Code:: Patient communicates acknowledgment, Family communicates acknowledgment Overweight/Obesity Patient Overweight/Obesity Risk Factors Are:: BMI Normal [18-25 & < 65 years old] Hypertension Patient Hypertension Risk Factors Are:: No documented hx of HTN Heart Disease Recommendations Include:: Educated family members of their risk, Educated family members of importance of prevention of heart disease Heart Disease Response Code:: Patient communicates acknowledgment, Family communicates acknowledgment Diabetes Patient Diabetes Risk Factors Are:: No documented hx of diabetes Metabolic Syndrome Recommendations Include:: Does not meet criteria Sedentary Patient Sedentary Risk Factors Are:: Lack of regular exercise Recommendations Include:: Aerobic exercise 5-7 times/week for 20-30 minutes continuously, Benefits of regular exercise, Discussed home walking program, Monitored Outpatient Cardiac Rehab Sedentary Response Code:: Patient communicates acknowledgment, Family communicates acknowledgment Stress Recommendations Include:: Identification of stressors, and assessment of coping skills, Stress management techniques Stress Response Code:: Patient communicates acknowledgment, Family communicates acknowledgment
[2019-03-04] MEDS: Acetaminophen 500 MG Tablet PO (16:25)
[2019-03-04] MEDS: Atorvastatin Calcium 40 MG Tablet PO (21:15)
[2019-03-04] MEDS: TICAGRELOR 90 MG TABLET PO (21:16)
[2019-03-05] VITALS (11 sets, daily range): BP systolic 103–146; BP diastolic 50–89; PULSE 59–89; RESP 12–19; TEMP 36.6–36.8; O2SAT 97–100
[2019-03-05 04:57] LABS: Hematocrit 47.5 % (40-54); Hemoglobin 15.9 g/dL (13.0-16.5); Mean Corp Hgb Conc 33.5 g/dL (32-36); Mean Corpuscular Hgb 31.1 pg (27.0-32.0); Mean Platelet Vol. 10.3 fl (6.2-12.0); Platelet Count 245 K/mm3 (150-450); RBC Distribution Width CV 12.4 % (11.6-14.6); RBC Distribution Width SD 42.7 fl (35.1-43.9); Red Blood Count 5.11 M/mm3 (4.6-6.2); White Blood Count 10.7 K/mm3 (4.4-11.0)
[2019-03-05 05:18] LABS: ALB/GLOB Ratio 1.3 RATIO (0.9-2.4); AST(SGOT) 16 U/L (15-37); Alanine Aminotransfer ALT/SGPT 19 U/L (16-61); Albumin, Serum 3.8 g/dL (3.2-5.0); Alkaline Phosphatase 68 U/L (45-117); Anion Gap 8 (5-15); BUN 22 mg/dL (7-18); BUN/Creat Ratio 24.1 RATIO (10-20); Calcium,Total 8.7 mg/dL (8.5-10.1); Chloride 109 mmol/L (98-107); Creatinine, Serum 0.91 mg/dL (0.70-1.30); EST Glomerular Filtration Rate 88 mL/min (>60); Est Glom Filt Rate - Afr Amer 107 mL/min (>60); Estimated Creatinine Clearance 92.22 ml/min; Glucose 90 mg/dL (74-106); Potassium 4.1 mmol/L (3.5-5.1); Protein, Total 6.8 g/dL (6.4-8.2); Sodium Level 144 mmol/L (136-145)
--- NOTE | 2019-03-05 07:43 | PN.CARD_ITS ---
Subjectve: Patient seen and evaluated. Appears to be doing well. Objective: Vital Signs Temp Pulse Resp BP Pulse Ox 97.9 F 72 18 130/89 H 99 03/05/19 00:00 03/05/19 07:00 03/05/19 07:00 03/05/19 07:00 03/05/19 07:01 Oxygen Delivery Method Room Air Weight: 175 lb 4.28 oz Body Mass Index (BMI) 22.3 Intake and Output for Last 24 Hours 03/03/19 03/04/19 03/05/19 23:59 23:59 23:59 Intake Total 2832.5 / 2952.5 360 / 360 Output Total 1425 / 2600 2175 / 2175 Balance 1407.5 / 352.5 -1815 / -1815 General: Awake, Alert, Oriented x 3 HEENT: PERRL, EOMI, Sclera Non Icteric Neck: Supple, Good ROM, No Lymph Node Enlargement Lungs: Clear to auscultation Cardiovascular: Regular Rhythm, Normal S1, Normal S2, No Murmurs, No Rubs, No Gallops Vascular: No Carotid Bruits, Normal Femoral Pulses, Normal Radial Pulses, Normal Dorsalis Pedal Pulse, Normal Posterior Tibial Pulses Abdomen: Bowel Sounds Present, Soft, Non Tender, No HSM, No Organomegaly Extremities: No Cyanosis, No Clubbing, No edema Musculoskeletal: No Erythema Skin: No Rashes Lymphatic: No Lymph Node Enlargement Neurological: No Focal Motor or Sensory Deficit 03/04/19 10:33: WBC 8.0, RBC 4.85, Hgb 15.5, Hct 45.4, MCV 93.6, MCH 32.0, MCHC 34.1, Plt Count 241, MPV 10.4 03/05/19 04:50: WBC 10.7, RBC 5.11, Hgb 15.9, Hct 47.5, MCV 93.0, MCH 31.1, MCHC 33.5, Plt Count 245, MPV 10.3 03/05/19 04:50: Sodium 144, Potassium 4.1, Chloride 109 H, Carbon Dioxide 27.0, Anion Gap 8, BUN 22 H, Creatinine 0.91, Est GFR (MDRD) Af Amer 107, Est GFR (MDRD) Non-Af 88, BUN/Creatinine Ratio 24.1 H, Glucose 90, Calcium 8.7, Total Bilirubin 0.50 Rhythm: EKG: ECHO: Stress Test: Cardiac Cath: PCI: CT Surgery: Holter monitor: EPS: PPM: CXR: Chest CT Scan: Medical Necessity - Tobacco Use Smoking Status: Current every day smoker Assessment/Plan 1. Coronary artery disease. Patient presented yesterday underwent cardiac catheterization and was noted to have high-grade stenosis noted of the left anterior descending artery as well as the ostial circumflex artery. He underwent angioplasty and stenting of those both these vessels successfully. He is doing better this morning. No EKG c hanges are noted. Hemoglobin is stable and creatinine is stable. The patient will be discharged for outpatient follow-up.
--- NOTE | 2019-03-05 07:45 | DCINST_ITS ---
Discharge Diet: Low fat/ Low Cholesterol Lifting Restrictions: 10 pounds and also avoid any pushing or pulling for 3 days after your test. Additional Activity Instructions:: You must have someone drive you home. Do not drive until instructed by your doctor. You must have someone stay with you all night after your test. Rest in bed or on the couch until the next morning. Limit the number of times you go up and down stairs the day of your test. Apply pressure to the puncture site if you sneeze or cough. Call your doctor if your incision/area has: Increased Pain/ Swelling, Increased Redness, Foul Smelling Discharge, Swelling at the incision site Call your doctor if you observe: Fever of 101 or Higher Additional Dressing/Incision Instructions:: Keep the dressing (bandage) on until the next morning. You may then shower, but do not take a tub bath for 5 days after your test. It is normal to have some tenderness and discomfort at the puncture site. Sometimes bruising also occurs. However, if pain, numbness, or coldness occurs below the puncture site (in your leg, toes, arms or fingers) call your doctor at once. You may have a small, marble sized knot at the puncture site. This is normal. Do not rub it. It will go away in 4-6 weeks. Bleeding can occur from the area where the puncture was done. Blood may spurt or drip from the site. If blood spurts, apply pressure right away to stop bleeding and call 911. Although rare, bleeding into the tissue (hematoma) can also occur. If this happens, a large, firm area goose egg under the skin will appear. If any of these occur, lie down as flat as you can and have someone apply firm pressure to the cath site with a gauze pad or a clean washcloth for 10-15 minutes. Call 911 or go to the Emergency Department. Allergies/Adverse Reactions: Allergies No Known Allergies Allergy (Verified 02/26/19 09:33) Medications to take at Discharge Multivitamin with Minerals [Multiple Vitamin] 1 ea PO DAILY 08/26/18 Acetaminophen [Tylenol Extra Strength] 500 mg PO Q4H PRN PRN #20 tab 08/28/18 aspirin 81 mg tablet,delayed release 162 mg PO DAILY tab 02/26/19 ipratropium bromide 0.03 % nasal spray 2 spray INTRANASAL BID 02/26/19 lansoprazole 30 mg capsule,delayed release 30 mg PO DAILY #60 cap 02/26/19 Atorvastatin Calcium [Lipitor] 40 mg PO QHS tablet 03/05/19 Ticagrelor [Brilinta] 90 mg PO BID #60 tab 03/05/19 The following prescriptions were given: Ticagrelor [Brilinta] 90 mg PO BID #60 tab Transmission Status: Pending to [facility]/pharmacy #[id number] Primary Care Physician: Bi Trujillo MD [Primary Care Provider] - Test Results: Test results from this visit will be discussed in further detail at your follow- up appointment, if applicable. Cardiac Rehabilitation Info Cardiac Rehabilitation Program Information: Cardiac Rehabilitation is important for patients like you who are recovering fro m a heart problem. Cardiac rehabilitation programs are recognized as integral to the continued care of the patient with coronary heart disease. The cardiac rehabilitation program is designed to optimize a patient's physical, psychological, and social functioning. Health rn medicare work in cardiac rehabilitation programs and assist you with getting the treatments you need to get stronger and healthier - like exercise, healthy eating habits, and medications. Cardiac rehabilitation has been show to help people with heart problems live longer and have better life enjoyment than people who do not go to cardiac rehabilitation. Please contact the Cardiac Rehabilitation Program at [facility] at in two weeks if you have not heard from them.
[2019-03-05] MEDS: Pantoprazole Sodium 40 MG Tablet PO (07:53)
[2019-03-05] MEDS: TICAGRELOR 90 MG TABLET PO (07:53)
[2019-03-05] MEDS: Aspirin E.C. 81 MG Tablet 162 MG PO (07:53)
--- NOTE | 2019-03-05 10:00 | EKG12_ITS ---
Test Reason : AM Blood Pressure : / mmHG Vent. Rate : 067 BPM Atrial Rate : 067 BPM P-R Int : 166 ms QRS Dur : 090 ms QT Int : 404 ms P-R-T Axes : 076 079 076 degrees QTc Int : 426 ms Normal sinus rhythm with sinus arrhythmia Normal ECG When compared with ECG of 04-MAR-2019 09:26, MANUAL COMPARISON REQUIRED, DATA IS UNCONFIRMED Confirmed by CHRISTIAN DAVIS ([id number]), international editorial producer JOSE MIGUEL DALLAS ([id number]) on 03/16/2019 1:25:14 PM Referred By: Keith Azevedo Confirmed By:CHRISTIAN DAVIS
--- NOTE | 2019-03-05 17:01 | CL.I_ITS ---
Patient Name: JARON MIRELES Study Date: 03/04/2019 Performing: Soha Osborne MD Ht: 75 inches 190.5 cm : 1955 Wt: 173.2 lbs 78.47 kg Age: 63 Gender: male BSA: 2.06 PROCEDURE(S) PERFORMED [id number] W OR WO PTCA, SINGLE CORONARY ARTERY [id number] W OR WO PTCA, SINGLE CORONARY ARTERY CLINICAL PROFILE AND CO-MORBIDITIES Indications: Suspected CAD Heart Failure: None Stress/Imaging Stress/Image Study Performed: No CAD Presentations: Unstable angina. CONCLUSIONS 1. Successful PCI of pLCx and mid LAD with CATHY RECOMMENDATIONS Follow up with Dr. Azevedo Risk factor modification ASA Indefcarlita Shah for at least 12 months DESCRIPTION OF PROCEDURE The patient arrived to the procedure lab. The risks and benefits of the procedure as well as a full d escription of our services here and current unavailability of surgical backup were fully explained to the patient and/or their significant other prior to the catheterization. The Timeout was completed, verifying the correct patient and procedure. The patient's procedural site was prepped and draped in the usual fashion. Local anesthetic was given subcutaneously to right radial region with Lidocaine 2% Using a modified Seldinger technique,arterial access was obtained via the right radial artery, a 6Fr sheath was inserted. Right Coronary Artery selective angiography was then performed in multiple view s using a 5 Fr. 4.0 Ringold catheter. Left Coronary Artery selective angiography was performed in multi ple views using a 5 Fr. 4.0 Ringold catheter. Left Ventriculography was performed in JOSEPH projection usi ng a 5 Fr. Pigtail catheter. LV to AO pullback pressures were then recorded.The images were reviewed and options discussed. A decision was then made to proceed with an Intervention, IVUS o r other adjunct procedure. XB 3.0 Guide catheter was inserted and engaged into the LCA. BMW Guide wire was advanced to the C ircumflex. Angiogram performed pre balloon dilatation. Emerge 3.00x12 Balloon catheter was inserted. PTCA balloon inflated at 6 atms for 8 secs. Angiogram performed post balloon dilatation. Elunir 2.5x8 Drug Eluting stent was inserted. Angiogram performed post stent deployment. BMW Guide wire was repos itioned to the LAD Angiogram performed pre balloon dilatation. Elunir 2.5x12 Drug Eluting stent was i nserted. Angiogram performed post stent deployment. The arterial sheath was pulled and a TR Band wa s applied for hemostasis w/ 11ml air INTERVENTION INFORMATION LESION SITE: Circumflex (Proximal) Lesion Complexity: High/C, chronic total occlusion: No, lesion at bifurcation: Yes, thrombus present: No, lesion length: 6 mm, culprit lesion: Yes, Previously treated lesion: No Pre Stenosis: 90 % Pre intervention MIKI flow: 3 PROCEDURE: Drug Eluting Stent with pre dilatation. Post Stenosis: 0 % Post intervention MIKI flow: 3 Lesion Devices: Cordis 6 Fr XB3.0 100cm Guide Catheter Palacios .014 BMW [place] Straight 190cm Max Sci EMERGE MR 3.00x12 BALLOON Cardinal Elunir CATHY RX 2.5x08 LESION SITE: LAD (Mid) Lesion Complexity: Non-High/Non-C, chronic total occlusion: No, lesion at bifurcation: No, thrombus p resent: No, lesion length: 10 mm, culprit lesion: Yes, Previously treated lesion: No Pre Stenosis: 80 % Pre intervention MIKI flow: 3 PROCEDURE: Drug Eluting Stent Post Stenosis: 0 % Post intervention MIKI flow: 3 Lesion Devices: Palacios .014 BMW [place] Straight 190cm Cardinal Elunir CATHY RX 2.5x12 COMPLICATIONS No Complications PROCEDURE MEDICATIONS Versed 1 mg IV Fentanyl 50 mcg IV Versed 1 mg IV Oxygen: 2 L/min via nasal cannula Baby Aspirin (81mg) 1 Tabs PO 03/04/2019 07:03:44 Brilinta 180 mg PO @ 03/04/2019 09:17:36 Heparin 5000 unit(s) IV 03/04/2019 08:24:01 Nitro 100 mcg IC 03/04/2019 08:44:37 Nitro 200 mcg IC 03/04/2019 08:48:32 SUMMARY OF HEMODYNAMIC DATA Time AIR REST ECG 07:05:29 AO 115/76 (96) SA 08:09:09 LV 104/1, 6 08:17:25 LV 107/3, 6 08:17:32 LV 124/-1, 12 08:18:23 LVp 123/0, 13 08:18:26 AOp 141/74 (105) 08:18:31 Signed By Soha Osborne MD On 03/04/2019 15:20:24 Soha Osborne MD
== END 2019-03-05 08:28 | disposition home or self-care (01) ==
LOC: CLSP 06:38 → ICU 08:27
PROVIDERS: Specialist; Family Provider Family Medicine; PCP Family Medicine; Referring Provider Internal Medicine Cardiovascular Disease; Visit Provider Internal Medicine Cardiovascular Disease
DX: I25.110 Atherosclerotic heart disease of native coronary artery with unstable angina pectoris (principal); E78.5 Hyperlipidemia, unspecified; J44.9 Chronic obstructive pulmonary disease, unspecified; K21.9 Gastro-esophageal reflux disease without esophagitis; F17.200 Nicotine dependence, unspecified, uncomplicated; Z79.82 Long term (current) use of aspirin
CPT/HCPCS: 80053; 85027; 92928; 93005; 93458; 99152; 99153; J7030; J7040; Q9967; C1725; C1769; C1874; C1887; C1894; C9600; J1327

== ENCOUNTER → 2019-03-09 07:41 | Outpatient (CLI) | payer OTHER, SELFPAY ==
[2019-02-26 09:30] VITALS: BMI 22.9
[2019-03-04 09:40] VITALS: BMI 22.3
--- NOTE | 2019-03-09 08:00 | RAD_ITS ---
STUDY: AIR-CONTRAST UPPER GI SERIES AND SMALL BOWEL FOLLOW-THROUGH EXAMINATION. REASON FOR EXAM: Male, 63 years old. Dyspepsia. FLUOROSCOPY TIME (if supplied): ( 64 seconds. ) minutes/seconds. 25 images were obtained. TECHNIQUE: The patient ingested barium. Multiple images of the esophagus, stomach and duodenum were then obtained. Following this, a small bowel follow-through was then performed. COMPARISON: None. FINDINGS: The esophagus is unremarkable. There is no evidence of obstruction. No mass lesion is seen. No evidence of gastric esophageal reflux. The stomach and duodenum are unremarkable. There is no evidence of ulceration. No mass lesion is present. A small bowel follow-through examination was then obtained. The small bowel transit is unremarkable. No intrinsic or extrinsic small bowel disease. The terminal ileum is unremarkable. RAD/Upper GI/w Small Bowel IMPRESSION: Unremarkable air contrast upper GI series with small bowel follow-through examination. Electronically Signed: Jaret Yo, at 10:14 EDT , Service support ,
== END ==
PROVIDERS: Family Provider Family Medicine; PCP Family Medicine; Referring Provider Family Medicine; Visit Provider Family Medicine
DX: R10.13 Epigastric pain (principal)
CPT/HCPCS: 74249

== ENCOUNTER 2019-03-12 08:35 | Day surgery (SDC) | payer OTHER, SELFPAY ==
[2019-03-11 15:45] VITALS: BMI 21.9
[2019-03-12 07:10] VITALS: BMI 21.9
--- NOTE | 2019-03-12 12:30 | CL.D_ITS ---
Patient Name: JARON MIRELES Study Date: 03/12/2019 Performing: Soha Osborne MD Ht: 75.19 inches 191 cm : 1955 Wt: 174.17 lbs 79 kg Age: 63 Gender: male BSA: 2.07 PROCEDURE(S) PERFORMED [id number]/LV CLINICAL PROFILE AND INDICATIONS Indications: Chest pain Heart Failure: None Stress/Imaging Stress/Image Study Performed: No CAD Presentations: Unstable angina. CONCLUSIONS Angiography findings unchanged from final post PCI pictures on 03/04/19. Preserved EF. No significant or MR RECOMMENDATIONS DESCRIPTION OF PROCEDURE The patient arrived to the procedure lab. The risks and benefits of the procedure as well as a full d escription of our services here and current unavailability of surgical backup were fully explained to the patient and/or their significant other prior to the catheterization. The Timeout was completed, verifying the correct patient and procedure. The patient's procedural site was prepped and draped in the usual fashion. Local anesthetic was given subcutaneously to right radial region with Lidocaine 2% . Using a modified Seldinger technique, arterial access was obtained via the right radial artery, a 6 Fr sheath was inserted. Left Coronary Artery selective angiography was performed in multiple views u sing a 5 Fr. JL3.5 catheter. Left Ventriculography was performed in JOSEPH projection using a 5 Fr JR 4. . LV to AO pullback pressures were then recorded. Right Coronary Artery selective angiography was the n performed in multiple views using a 5 Fr. JR 4 catheter.The arterial sheath was pulled and a TR Band was applied for hemostasis 11cc air inserted CORONARY ANGIOGRAPHY DOMINANCE: Right Dominant LEFT HEART ASSESSMENT Left Ventricular Ejection Fraction: by LV Gram 60 % Normal LV wall motion LEFT MAIN: Mild luminal irregularities LEFT ANTERIOR DESCENDING ARTERY: Mild luminal irregularities MID LAD: Previously placed stent is patent CIRCUMFLEX ARTERY: Mild luminal irregularities PROX CIRC: Previously placed stent is patent RIGHT CORONARY ARTERY: Mild luminal irregularities VALVE FINDINGS: No Aortic Valve Stenosis No Mitral Insufficency COMPLICATIONS No Complications PROCEDURE MEDICATIONS Fentanyl 50 mcg IV Versed 1 mg IV Oxygen: 2 L/min via nasal cannula Heparin given IA 03/12/2019 10:46:35 Verapamil 2.5mg, Ntg 100mcgs, 3000 units of Heparin given IA 03/12/2019 10:46:35 SUMMARY OF HEMODYNAMIC DATA Time AIR REST ECG 08:56:19 AO 98/69 (82) SA 10:48:30 LV 140/4, 8 10:53:20 LV 146/6, 9 10:53:26 LVp 131/5, 10 10:54:31 AOp 124/8 (48) 10:54:36 Signed By Soha Osborne MD On 03/12/2019 12:29:53 PM Soha Osborne MD
== END 2019-03-12 12:50 | disposition home or self-care (01) ==
PROVIDERS: Family Provider Family Medicine; PCP Family Medicine; Referring Provider Specialist; Visit Provider Specialist
DX: I25.110 Atherosclerotic heart disease of native coronary artery with unstable angina pectoris (principal); I10 Essential (primary) hypertension; E78.5 Hyperlipidemia, unspecified; J44.9 Chronic obstructive pulmonary disease, unspecified; K21.9 Gastro-esophageal reflux disease without esophagitis; F17.200 Nicotine dependence, unspecified, uncomplicated; Z79.82 Long term (current) use of aspirin; Z79.899 Other long term (current) drug therapy
CPT/HCPCS: 93458; 99152; J7040; Q9967; C1769; C1894

== ENCOUNTER → 2019-04-12 13:52 | Outpatient (CLI) | payer OTHER, MEDICARE, SELFPAY ==
--- NOTE | 2019-04-12 14:03 | RAD_ITS ---
STUDY: X-RAY - PELVIS REASON FOR EXAM: Male, 64 years old. Positive JOSE TECHNIQUE: One view of the pelvis was obtained. COMPARISON: September 01, 2018 abdomen study FINDINGS: There is a non-specific bowel gas pattern. Normal visualized soft tissue structures. There is narrowing with cortical sclerosis and osteophyte formation of the sacroiliac joint consistent with degenerative osteoarthritic changes. Normal visualized bilateral superior and inferior pubic rami. Normal pubic symphysis. Normal ischial tuberosities. Normal visualized right femoral head. There is osteoarthritic spur formation of the right acetabular rim. There is mild articular joint space narrowing of the right hip. Normal visualized left femoral head. There is osteoarthritic spur formation of the left acetabular rim. There is mild articular joint space narrowing of the left hip. RAD/Pelvis 1 or 2 Views IMPRESSION: Mild degenerative change. No visualized acute fracture. Electronically Signed: Tracey Hagen MD at 14:55 EST Tel , Service support ,
[2019-04-12 15:07] LABS: EXAGEN MAILED SPECIMEN
[2019-04-12 15:39] LABS: Color, Urine Yellow (Yellow); Glucose, Dipstick Normal (Normal); Ketone-Dipstick Negative (Negative); Leukocyte Esterase-Dipstick Negative /ul (Negative); Nitrite-Dipstick Negative (Negative); Occult Blood-Urine Negative /ul (Negative); Protein-Dipstick Negative (Negative); Specific Gravity, Urine 1.015 (1.002-1.030); Urine Bilirubin Dipstick Negative (Negative); Urine Clarity Clear (Clear); Urine Urobilinogen Normal (Normal)
[2019-04-12 15:40] LABS: Protein, Urine (Random) 8.7 mg/dL (<11.9); Protein:Creat Ratio 99 mg/g CRE (0-200)
[2019-04-12 15:54] LABS: CRP < 2.90 mg/L (0.0-3.0)
[2019-04-12 16:15] LABS: Erythrocyte Sedimentation Rate 2 mm/hr (0-20)
== END ==
PROVIDERS: Family Provider Family Medicine; PCP Family Medicine; Referring Provider Internal Medicine Rheumatology; Visit Provider Internal Medicine Rheumatology
DX: R76.8 Other specified abnormal immunological findings in serum (principal); K21.9 Gastro-esophageal reflux disease without esophagitis; I25.10 Atherosclerotic heart disease of native coronary artery without angina pectoris; F32.9 Major depressive disorder, single episode, unspecified
CPT/HCPCS: 36415; 72170; 81002; 82570; 84156; 85652; 86140

== ENCOUNTER → 2019-07-12 09:26 | Outpatient (CLI) | payer OTHER, MEDICARE, SELFPAY ==
[2019-04-16 13:30] VITALS: BMI 21.9
--- NOTE | 2019-07-12 09:50 | RAD_ITS ---
STUDY: X-RAY - ABDOMEN/PELVIS REASON FOR EXAM: Male, 64 years old. Lower abdomen pain and flank pain TECHNIQUE: Single AP view of the abdomen / pelvis. COMPARISON: Comparison is made with prior study dated April 12, 2019. FINDINGS: Normal visualized lung bases. There is a moderate amount of colonic fecal material. The visualized liver, spleen and kidneys are grossly normal in size and morphology. Normal soft tissue structures. Normal visualized osseous structures. RAD/Abdomen Single View IMPRESSION: Moderate amount of fecal material is seen in the colon. Electronically Signed: Jaret Yo, at 11:09 EST , Service support ,
== END ==
PROVIDERS: PCP Family Medicine; Referring Provider Urology; Visit Provider Urology
DX: R10.84 Generalized abdominal pain (principal); Z87.442 Personal history of urinary calculi
CPT/HCPCS: 74018

== ENCOUNTER → 2019-09-29 09:42 | Outpatient (CLI) | payer OTHER, MEDICARE, SELFPAY ==
[2019-04-16 13:30] VITALS: BMI 21.9
[2019-09-29 12:57] LABS: ALB/GLOB Ratio 1.2 RATIO (0.9-2.4); AST(SGOT) 19 U/L (15-37); Alanine Aminotransfer ALT/SGPT 24 U/L (16-61); Albumin, Serum 4.1 g/dL (3.2-5.0); Alkaline Phosphatase 85 U/L (45-117); Anion Gap 4 (5-15); BUN 15 mg/dL (7-18); BUN/Creat Ratio 15.3 RATIO (10-20); Calcium,Total 9.4 mg/dL (8.5-10.1); Chloride 109 mmol/L (98-107); Creatinine, Serum 0.98 mg/dL (0.70-1.30); EST Glomerular Filtration Rate 82 mL/min (>60); Est Glom Filt Rate - Afr Amer 99 mL/min (>60); Globulin 3.3 g/dL (2.2-4.2); Glucose 106 mg/dL (74-106); Hemoglobin A1c 5.8 % (4.2-6.3); PSA,Total - Annual Screen 1.52 ng/mL (0.00-4.00); Potassium 4.3 mmol/L (3.5-5.1); Protein, Total 7.4 g/dL (6.4-8.2); Sodium Level 141 mmol/L (136-145); Thyroid Stim Hormone (TSH) 3.32 uIU/mL (0.358-3.74)
== END ==
PROVIDERS: PCP Family Medicine; Referring Provider Family Medicine; Visit Provider Family Medicine
DX: Z00.00 Encounter for general adult medical examination without abnormal findings (principal); E78.5 Hyperlipidemia, unspecified; I25.10 Atherosclerotic heart disease of native coronary artery without angina pectoris
CPT/HCPCS: 36415; 80053; 82043; 82570; 83036; 84153; 84443; G0103

== ENCOUNTER → 2020-05-16 15:59 | Outpatient (CLI) | payer OTHER, MEDICARE, SELFPAY ==
[2020-05-16 12:10] VITALS: BMI 22.4
[2020-05-16 17:59] LABS: AST(SGOT) 19 U/L (15-37); Alanine Aminotransfer ALT/SGPT 28 U/L (16-61); Albumin, Serum 4.5 g/dL (3.2-5.0); Alkaline Phosphatase 99 U/L (45-117); Bilirubin, Direct 0.17 mg/dL (0.00-0.30); Cholesterol 123 mg/dL (200); Globulin 3.5 g/dL (2.2-4.2); High Density Lipoprotein 53 mg/dL; Triglycerides 122 mg/dL; Very Low Density Lipoprotein 24 mg/dL (5-40)
== END ==
PROVIDERS: PCP Family Medicine; Referring Provider Internal Medicine Cardiovascular Disease; Visit Provider Internal Medicine Cardiovascular Disease
DX: E78.5 Hyperlipidemia, unspecified (principal)
CPT/HCPCS: 36415; 80061; 80076

== ENCOUNTER → 2020-10-12 10:53 | Outpatient (CLI) | payer OTHER, MEDICARE, SELFPAY ==
[2020-05-16 12:10] VITALS: BMI 22.4
[2020-10-12 11:42] LABS: PSA,Total - Annual Screen 2.23 ng/mL (0.00-4.00)
== END ==
PROVIDERS: PCP Family Medicine; Referring Provider Urology; Visit Provider Urology
DX: Z12.5 Encounter for screening for malignant neoplasm of prostate (principal)
CPT/HCPCS: 36415; 84153; G0103

== ENCOUNTER → 2020-11-24 13:54 | Outpatient (CLI) | payer OTHER, MEDICARE, SELFPAY ==
[2020-05-16 12:10] VITALS: BMI 22.4
--- NOTE | 2020-11-24 13:57 | CT_ITS ---
STUDY: CT FACIAL BONES WITHOUT CONTRAST REASON FOR EXAM: Male, 65 years old. Mucoid sinus drainage not responsive to antibiotics RADIATION DOSAGE (If Supplied By Facility): CTDIvol = ( 33.06 ) mGy, DLP = ( 833.85 ) mGycm TECHNIQUE: The patient was scanned in a multi detector CT scanner. Sagittal and coronal images were reconstructed. Individualized dose optimization techniques were used for this CT. COMPARISON: None. FINDINGS: Normal soft tissue structures. Normal orbital cornell and orbital contents. Normal nasal bones and anterior nasal spine. Normal facial bones. There is no demonstrated fracture. Normal visualized paranasal sinuses. There is hypertrophy of the inferior turbinates bilaterally. CT/Sinus/Facial Bone IMPRESSION: Hypertrophy of the inferior turbinates bilaterally. Electronically Signed: Jaret Yo MD at 14:19 EDT , Service support ,
== END ==
PROVIDERS: PCP Family Medicine; Referring Provider Family Medicine; Visit Provider Family Medicine
DX: J30.9 Allergic rhinitis, unspecified (principal)
CPT/HCPCS: 70486

== ENCOUNTER → 2021-01-12 15:52 | Outpatient (CLI) | payer OTHER, MEDICARE, SELFPAY ==
[2020-05-16 12:10] VITALS: BMI 22.4
== END ==
PROVIDERS: PCP Family Medicine; Referring Provider Urology; Visit Provider Urology
DX: R97.20 Elevated prostate specific antigen [PSA] (principal)
CPT/HCPCS: 36415; 84153

== ENCOUNTER → 2021-03-02 11:13 | Outpatient (CLI) | payer OTHER, MEDICARE, SELFPAY ==
[2021-03-02 15:25] LABS: Absolute Lymphocyte Count 1.74 X10^3/uL (0.83-4.51); Absolute Neutrophil Count 5.2 X10^3/uL (2.0-7.7); Basophil# 0.08 X10^3/uL; Eosinophil# 0.28 X10^3/uL; Eosinophils% 3.5 % (0-5); Hematocrit 47.2 % (40-54); Hemoglobin 15.1 g/dL (13.0-16.5); Lymphocyte # 1.74 X10^3/ul (0.83-4.51); Lymphocyte % 21.6 % (19-41); Mean Corpuscular Hgb 31.4 pg (27.0-32.0); Mean Corpuscular Volume 98.1 fL (80-94); Mean Platelet Vol. 10.3 fl (6.2-12.0); Monocyte% 8.7 % (0-10); NRBC Flagged by Analyzer 0 % (0-5); Neutrophil # 5.17 X10^3/uL (2.7-7.7); Neutrophil % 64.3 % (47-70); Platelet Count 266 K/mm3 (150-450); RBC Distribution Width CV 12.9 % (11.6-14.6); RBC Distribution Width SD 46.9 fl (35.1-43.9); Red Blood Count 4.81 M/mm3 (4.6-6.2)
[2021-03-02 15:44] LABS: ALB/GLOB Ratio 1.1 RATIO (0.9-2.4); AST(SGOT) 19 U/L (15-37); Alanine Aminotransfer ALT/SGPT 25 U/L (16-61); Albumin, Serum 3.9 g/dL (3.2-5.0); Alkaline Phosphatase 88 U/L (45-117); Anion Gap 3 (5-15); BUN 20 mg/dL (7-18); BUN/Creat Ratio 22.9 RATIO (10-20); Calcium,Total 9.2 mg/dL (8.5-10.1); Chloride 108 mmol/L (98-107); Cholesterol 127 mg/dL (200); Creatinine, Serum 0.87 mg/dL (0.70-1.30); EST Glomerular Filtration Rate 93 mL/min (>60); Est Glom Filt Rate - Afr Amer 112 mL/min (>60); Globulin 3.5 g/dL (2.2-4.2); Glucose 99 mg/dL (74-106); High Density Lipoprotein 52 mg/dL; Protein, Total 7.4 g/dL (6.4-8.2); Sodium Level 140 mmol/L (136-145); Triglycerides 67 mg/dL; Very Low Density Lipoprotein 13 mg/dL (5-40)
== END ==
PROVIDERS: PCP Family Medicine; Referring Provider Family Medicine; Visit Provider Family Medicine
DX: J44.9 Chronic obstructive pulmonary disease, unspecified (principal); I25.10 Atherosclerotic heart disease of native coronary artery without angina pectoris
CPT/HCPCS: 36415; 80053; 80061; 85025

== ENCOUNTER 2021-07-26 15:26 | Observation (INO) | payer OTHER, MEDICARE, SELFPAY ==
[2021-07-26] VITALS (9 sets, daily range): BP systolic 114–164; BP diastolic 69–87; PULSE 64–90; RESP 16–18; TEMP 36.1–36.6; O2SAT 97–99; BMI 23.1; BMI 22.8
--- NOTE | 2021-07-26 15:35 | EKG12_ITS ---
Test Reason : Blood Pressure : / mmHG Vent. Rate : 082 BPM Atrial Rate : 082 BPM P-R Int : 160 ms QRS Dur : 086 ms QT Int : 362 ms P-R-T Axes : 073 069 066 degrees QTc Int : 422 ms Normal sinus rhythm Normal ECG Confirmed by NIDHI TABARES, ANDREEA ([id number]), fashion editor MALLIKA ATKINSON ([id number]) on 07/30/2021 1:22:27 PM Referred By: Confirmed By:MILENA TERRELL MD
--- NOTE | 2021-07-26 15:42 | ED.VIS.CHEST ---
HPI History of Present Illness Chief Complaint: Chest Pain Narrative Narrative: 56-year-old male with history of hypertension, CAD, cardiac stents, hyperlipidemia presenting with chest pain. He states that Friday he noted he had some chest pressure and took nitroglycerin and this resolved his chest pain. He notes that he has had dyspepsia for the last few days. He states he is only eating chicken breast, and nothing that would make his acid reflux worse. Patient reports that this morning he was working in a flooded basement and doing strenuous work and noted that he had chest pressure which lasted about 30 minutes. He states he was very short of breath while climbing up the stairs. He called Dr. Azevedo's office and was referred to the emergency room. Currently he is pain-free. He states he feels better at this moment. [facility] Medical History Atherosclerotic heart disease [place] coronary artery w/angina pectoris COPD (chronic obstructive pulmonary disease) Elevated blood pressure reading in office without diagnosis of hypertension Essential (primary) hypertension GERD (gastroesophageal reflux disease) Hyperlipidemia Nicotine dependence Home Medications acetaminophen 500 mg PO Q4H PRN PRN #20 tab 08/28/18 [Rx Last Taken Unknown] nitroglycerin 0.4 mg sublingual tablet 0.4 mg SUBLINGUAL Q5-15M 04/16/19 [History Last Taken Unknown] omeprazole 40 mg capsule,delayed release 40 mg PO DAILY 10/19/19 [History Last Taken Unknown] tamsulosin 0.4 mg capsule 0.4 mg PO DAILY 10/19/19 [History Last Taken Unknown] ascorbic acid (vitamin C) 1,000 mg tablet 1 g PO DAILY tab 05/16/20 [History Last Taken Unknown] cholecalciferol (vitamin D3) 125 mcg (5,000 unit) capsule 125 mcg PO DAILY 05/16/20 [History Last Taken Unknown] zinc acetate 50 mg (zinc) capsule 50 mg PO DAILY 05/16/20 [History Last Taken Unknown] lisinopril 5 mg tablet 5 mg PO DAILY #30 tab 12/18/20 [Rx Last Taken Unknown] atorvastatin 40 mg tablet 40 mg PO QHS #90 tab 04/25/21 [Rx Last Taken Unknown] ticagrelor 90 mg tablet 90 mg PO BID #180 tab 05/14/21 [Rx Last Taken Unknown] aspirin 81 mg tablet,delayed release 81 mg PO BID tab 05/15/21 [History Last Taken Unknown] coenzyme Q10 200 mg capsule 200 mg PO DAILY 05/15/21 [History Last Taken Unknown] fluticasone propionate 50 mcg/actuation nasal spray,suspension 2 spray INTRANASAL DAILY g 05/15/21 [History Last Taken Unknown] Allergy/AdvReac Type Severity Reaction Status Date / Time No Known Allergies Allergy Verified 05/15/21 13:25 Family History Brother CVA (cerebral vascular accident) Diabetes Brother CVA (cerebral vascular accident) Diabetes Sister Diabetes Hypertension Son Hypertension Father , age 63 Myocardial infarction, Onset Age: 41 Surgical History History of coronary artery stent placement (03/04/19) History of left heart catheterization (03/12/19) Social History Smoking Status: Current every day smoker tobacco type: cigarettes Tobacco: How many years used: 45 alcohol intake: never substance use type: does not use caffeine: Yes Type: coffee Number of servings: 4 ROS ROS ED Constitutional Constitutional ED: Denies chills or fever(s) Eyes Eyes: Denies blurry vision or change in vision ENT ENT ED: Denies rhinorrhea or sore throat Cardiovascular Cardiovascular: Reports chest pain Respiratory/Chest Respiratory/Chest: Reports dyspnea and dyspnea on exertion Gastrointestinal Gastrointestinal: Reports other Details: Dyspepsia ; Denies abdominal pain, nausea or vomiting Genitourinary Genitourinary ED: Denies dysuria or hematuria Musculoskeletal Musculoskeletal: Denies arthralgias or myalgias Integumentary Denies rash Neurologic Neurologic: Denies headache(s) or paresthesias EXAM Physical Exam Const Vital Signs: 07/26/21 15:27 07/26/21 15:30 07/26/21 15:38 Temperature 97.0 F L Temperature Source Oral Pulse Rate 90 Respiratory Rate 18 Respiratory Effort Normal Non-Labored Blood Pressure 159/87 H Blood Pressure Mean 111 Pulse Ox 98 98 99 Oxygen Delivery Method Room Air Room Air Room Air 07/26/21 17:14 07/26/21 18:26 Temperature Temperature Source Pulse Rate 66 80 Respiratory Rate 16 18 Respiratory Effort Blood Pressure 130/85 H 114/75 Blood Pressure Mean 100 Pulse Ox 98 Oxygen Delivery Method Room Air Positive well nourished General Appearance ED: NAD; Negative for pallor HEENT Reports moist mucous membranes normocephalic and atraumatic Eyes PERRL and EOMs intact bilaterally Resp normal respiratory effort Effort and Inspection: respiratory distress Cardio regular rate and regular rhythm GI normal to inspection, nondistended, normoactive bowel sounds Neuro oriented x3 and CN's II-XII intact bilaterally Sensorium / Orientation: awake and alert Psych mental status grossly normal Skin General Skin Exam: Negative for jaundice or pallor Heart Score History: Moderately Suspicious ECG: Normal Age: >/= 65 years Risk Factors: >/= 3 Risk Factors or History of CAD Troponin: </= Normal Limit Score: 5 MDM MDM MDM Narrative Medical decision making narrative: 66-year-old male presenting with chest pressure and shortness of breath. His initial EKG on my interpretation is a normal sinus rhythm with ventricular rate of 82 bpm without sign of ischemic change or dysrhythmia. This is compared to his previous EKG performed 05 March 2019 which shows no significant interval changes. Chest x-ray my interpretation is no acute cardiopulmonary process and radiologist agree. D-dimer is negative. CBC within normal limits. BMP shows normal GFR and electrolytes. High-sensitivity troponin is 4. Will obtain a delta troponin at the 2-hour selin. Delta troponin at 2 hours is unchanged at 4. Discussed with the patient and Dr. Osborne given the patient's concerned that he had negative cardiac work-ups before and ended up having blockages and needed cardiac stents. He is expressing that he has dyspnea on exertion which is similar. The dyspepsia is fairly new. After speaking with Dr. Osborne he felt that the patient was concerned that we could admit him for cardiac cath tomorrow. Patient was discussed with the hospitalist he is admitted in stable condition. Impression: 1. Chest pain Lab Data Attestation: I reviewed the patient's lab results. Labs: Laboratory Results - last 24 hr 07/26/21 07/26/21 07/26/21 15:31 15:31 15:31 WBC 9.3 RBC 4.79 Hgb 15.7 Hct 44.5 MCV 92.9 MCH 32.8 H MCHC 35.3 RDW Std Deviation 44.4 H RDW Coeff of Vita 13.0 Plt Count 274 MPV 10.1 Immature Gran % (Auto) 0.500 Neut % (Auto) 64.8 Lymph % (Auto) 23.0 [place] % (Auto) 7.6 Eos % (Auto) 3.2 Baso % (Auto) 0.9 Absolute Neuts (auto) 6.0 Absolute Lymphs (auto) 2.14 Nucleated RBC % 0 D-Dimer Quant (PE/DVT) 0.30 Sodium 139 Potassium 3.6 Chloride 105 Carbon Dioxide 32.0 Anion Gap 2 L BUN 24 H Creatinine 1.10 Estim Creat Clear Calc 77.42 Est GFR (MDRD) Af Amer 86 Est GFR (MDRD) Non-Af 71 BUN/Creatinine Ratio 21.8 H Glucose 123 H Hemoglobin A1c Calcium 8.8 Troponin I High Sens 4 07/26/21 07/26/21 15:31 17:25 WBC RBC Hgb Hct MCV MCH MCHC RDW Std Deviation RDW Coeff of Vita Plt Count MPV Immature Gran % (Auto) Neut % (Auto) Lymph % (Auto) [place] % (Auto) Eos % (Auto) Baso % (Auto) Absolute Neuts (auto) Absolute Lymphs (auto) Nucleated RBC % D-Dimer Quant (PE/DVT) Sodium Potassium Chloride Carbon Dioxide Anion Gap BUN Creatinine Estim Creat Clear Calc Est GFR (MDRD) Af Amer Est GFR (MDRD) Non-Af BUN/Creatinine Ratio Glucose Hemoglobin A1c 5.7 H Calcium Troponin I High Sens 4 Radiography Diagnostic Testing: Clinical Impression(s) from Imaging Studies Chest X-Ray 07/26/21 15:43 IMPRESSION: Hyperinflation. The lungs are clear. Electronically Signed: Jaret Yo MD at 15:56 EST , Discharge Plan Triage Chief Complaint: Chest Pain ED Provider: Elias Pimentel Dx/Rx/DC Orders Primary Care Provider: Bi Trujillo Disposition Disposition: Home, Self Care Discharge Date/Time: 07/26/21 19:46
--- NOTE | 2021-07-26 15:43 | RAD_ITS ---
STUDY: X-RAY CHEST REASON FOR EXAM: Male, 66 years old. Chest pain TECHNIQUE: Single AP portable view of the chest. COMPARISON: None. FINDINGS: EKG electrodes are seen. Hyperinflation. The lungs are clear. There is no demonstrated pleural abnormality. Normal size heart. Normal mediastinum and barbra. Normal visualized pulmonary arteries. Normal visualized aortic arch and descending thoracic aorta. Normal visualized thoracic spine. Normal visualized ribs, clavicles, and shoulders. There is no demonstrated abnormality of the visualized soft tissue structures of the upper abdomen. RAD/Chest 1 View (Portable) IMPRESSION: Hyperinflation. The lungs are clear. Electronically Signed: Jaret Yo MD at 15:56 EST ,
[2021-07-26 15:50] LABS: Absolute Lymphocyte Count 2.14 X10^3/uL (0.83-4.51); Basophil# 0.08 X10^3/uL; Basophil% 0.9 % (0-1); Eosinophils% 3.2 % (0-5); Hematocrit 44.5 % (40-54); Hemoglobin 15.7 g/dL (13.0-16.5); Lymphocyte # 2.14 X10^3/ul (0.83-4.51); Mean Corp Hgb Conc 35.3 g/dL (32-36); Mean Corpuscular Hgb 32.8 pg (27.0-32.0); Mean Corpuscular Volume 92.9 fL (80-94); Mean Platelet Vol. 10.1 fl (6.2-12.0); Monocyte# 0.71 X10^3/uL; Monocyte% 7.6 % (0-10); NRBC Flagged by Analyzer 0 % (0-5); Neutrophil # 6.02 X10^3/uL (2.7-7.7); Neutrophil % 64.8 % (47-70); Platelet Count 274 K/mm3 (150-450); RBC Distribution Width SD 44.4 fl (35.1-43.9); Red Blood Count 4.79 M/mm3 (4.6-6.2); White Blood Count 9.3 K/mm3 (4.4-11.0)
[2021-07-26] MEDS: Aspirin 81 MG TAB.CHEW 324 MG PO (15:52)
[2021-07-26 16:05] LABS: Anion Gap 2 (5-15); BUN 24 mg/dL (7-18); BUN/Creat Ratio 21.8 RATIO (10-20); Calcium,Total 8.8 mg/dL (8.5-10.1); Chloride 105 mmol/L (98-107); EST Glomerular Filtration Rate 71 mL/min (>60); Est Glom Filt Rate - Afr Amer 86 mL/min (>60); Estimated Creatinine Clearance 77.42 ml/min; Glucose 123 mg/dL (74-106); Potassium 3.6 mmol/L (3.5-5.1); Sodium Level 139 mmol/L (136-145); Troponin-I HS 4 pg/mL (3.0-78.0)
[2021-07-26 18:12] LABS: Troponin-I HS 4 pg/mL (3.0-78.0)
--- NOTE | 2021-07-26 19:05 | PCM.HP.STD ---
HPI - General General Date of Admission: 07/26/21 Date of Service: 07/26/21 Chief Complaint: Chest pain - 2 day HPI Narrative JARON MIRELES, is a 66 M who presents with the above. Patient was at the [facility] hot spa/pool 2 days ago when he had sudden onset of severe indigestion that was substernal, felt like it was associated with some left precordial pressure. He took some nitro that helped relieve the indigestion but gave him a headache. Indigestion/chest pressure went away after 30 minutes. 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 It was severe and lasted several hours prompting him to call [facility] and was asked to come to the emergency room. Patient felt slightly warm today. Denied any dizziness or palpitations or nausea or vomiting. Denied any recent illness. Vitals in the ED were stable except for slightly uncontrolled blood pressure. His admitting blood work was unremarkable. Creatinine was 1.1, baseline creatinine less than 1. Troponin is 4 twice. Admitting EKG shows no acute ST changes. [facility] Medical History Atherosclerotic heart disease [place] coronary artery w/angina pectoris COPD (chronic obstructive pulmonary disease) Elevated blood pressure reading in office without diagnosis of hypertension Essential (primary) hypertension GERD (gastroesophageal reflux disease) Hyperlipidemia Nicotine dependence Home Medications acetaminophen 500 mg PO Q4H PRN PRN #20 tab 08/28/18 [Rx Last Taken Unknown] nitroglycerin 0.4 mg sublingual tablet 0.4 mg SUBLINGUAL Q5-15M 04/16/19 [History Last Taken Unknown] omeprazole 40 mg capsule,delayed release 40 mg PO DAILY 10/19/19 [History Last Taken Unknown] tamsulosin 0.4 mg capsule 0.4 mg PO DAILY 10/19/19 [History Last Taken Unknown] ascorbic acid (vitamin C) 1,000 mg tablet 1 g PO DAILY tab 05/16/20 [History Last Taken Unknown] cholecalciferol (vitamin D3) 125 mcg (5,000 unit) capsule 125 mcg PO DAILY 05/16/20 [History Last Taken Unknown] zinc acetate 50 mg (zinc) capsule 50 mg PO DAILY 05/16/20 [History Last Taken Unknown] lisinopril 5 mg tablet 5 mg PO DAILY #30 tab 12/18/20 [Rx Last Taken Unknown] atorvastatin 40 mg tablet 40 mg PO QHS #90 tab 04/25/21 [Rx Last Taken Unknown] ticagrelor 90 mg tablet 90 mg PO BID #180 tab 05/14/21 [Rx Last Taken Unknown] aspirin 81 mg tablet,delayed release 81 mg PO BID tab 05/15/21 [History Last Taken Unknown] coenzyme Q10 200 mg capsule 200 mg PO DAILY 05/15/21 [History Last Taken Unknown] fluticasone propionate 50 mcg/actuation nasal spray,suspension 2 spray INTRANASAL DAILY g 05/15/21 [History Last Taken Unknown] Allergy/AdvReac Type Severity Reaction Status Date / Time No Known Allergies Allergy Verified 05/15/21 13:25 Family History Brother CVA (cerebral vascular accident) Diabetes Brother CVA (cerebral vascular accident) Diabetes Sister Diabetes Hypertension Son Hypertension Father , age 63 Myocardial infarction, Onset Age: 41 Surgical History History of coronary artery stent placement (03/04/19) History of left heart catheterization (03/12/19) Social History Smoking Status: Current every day smoker tobacco type: cigarettes Tobacco: How many years used: 45 alcohol intake: never substance use type: does not use caffeine: Yes Type: coffee Number of servings: 4 ROS ROS Narrative Constitutional: Reports: Malaise, Weakness, Fatigue. Denies: Anorexia, Chills, Fever, Night Sweats, Weight Change Eyes: Denies: Blurred vision, Cataracts, Conjunctivae Inflammation, Pain, Redness, Vision Change HEENT: Denies: Difficulty Hearing, Difficulty Swallowing, Head Aches, Hearing Changes, Sinus Congestion, Sinus Drainage Cardiovascular: Denies: Chest Pain, Orthopnea, Palpitations Respiratory: Denies: Cough, Shortness of breath at rest, Sputum production Gastrointestinal: Denies: Abdominal Pain, Nausea, Vomiting Genitourinary: Denies: Dysuria Musculoskeletal: Denies: Joint Pain, Joint stiffness, Joint swelling, Joint Tenderness Skin: Denies: Rash, Wounds Neurological: Denies: Numbness, Tingling, Focal weakness Vital Signs Vital Signs Vital Signs: 07/26/21 15:27 07/26/21 15:30 07/26/21 15:38 Temperature 97.0 F L Temperature Source Oral Pulse Rate 90 Respiratory Rate 18 Respiratory Effort Normal Non-Labored Blood Pressure 159/87 H Blood Pressure Mean 111 Pulse Ox 98 98 99 Oxygen Delivery Method Room Air Room Air Room Air 07/26/21 17:14 07/26/21 18:26 Temperature Temperature Source Pulse Rate 66 80 Respiratory Rate 16 18 Respiratory Effort Blood Pressure 130/85 H 114/75 Blood Pressure Mean 100 Pulse Ox 98 Oxygen Delivery Method Room Air Weight Weight: 84 kg Body Mass Index (BMI) 23.1 Physical Exam Narrative Physical exam: General: Alert, Oriented x3, Cooperative, No apparent distress, Well developed HEENT: Atraumatic Oral: Moist Mucosa Neck: Supple Lungs: Clear to auscultation Cardiovascular: HS I+II, regular, no murmurs Abdomen: Bowel Sounds Present, Soft, Non Tender Extremities: No edema Results Lab / Micro Data Result Diagrams: 07/26/21 15:31 07/26/21 15:31 Labs: Laboratory Results - last 24 hr 07/26/21 15:31: WBC 9.3, RBC 4.79, Hgb 15.7, Hct 44.5, MCV 92.9, MCH 32.8 H, MCHC 35.3, RDW Std Deviation 44.4 H, RDW Coeff of Vita 13.0, Plt Count 274, MPV 10.1, Immature Gran % (Auto) 0.500, Neut % (Auto) 64.8, Lymph % (Auto) 23.0, [place] % (Auto) 7.6, Eos % (Auto) 3.2, Baso % (Auto) 0.9, Absolute Neuts (auto) 6.0, Absolute Lymphs (auto) 2.14, Nucleated RBC % 0 07/26/21 15:31: D-Dimer Quant (PE/DVT) 0.30 07/26/21 15:31: Sodium 139, Potassium 3.6, Chloride 105, Carbon Dioxide 32.0, Anion Gap 2 L, BUN 24 H, Creatinine 1.10, Estim Creat Clear Calc 77.42, Est GFR (MDRD) Af Amer 86, Est GFR (MDRD) Non-Af 71, BUN/Creatinine Ratio 21.8 H, Glucose 123 H, Calcium 8.8, Troponin I High Sens 4 07/26/21 17:25: Troponin I High Sens 4 Radiology Impression Chest X-Ray 07/26/21 15:43 IMPRESSION: Hyperinflation. The lungs are clear. Electronically Signed: Jaret Yo MD at 15:56 EST , Assessment & Plan Assessment/Plan (1) Chest pain: QUALIFIERS: Chest pain type: precordial pain Qualified Code(s): R07.2 - Precordial pain PLAN: 1. Acute chest pain, concerning for unstable angina. Admitting EKG shows normal sinus rhythm without ST-T changes Patient has CAD status post stents to his LAD and circumflex in February 2019. Still smoking. Heart score of 6 Chest x-ray shows no acute cardiopulmonary abnormality Patient is on aspirin and Brilinta as well as statin; continue same Cardiology consulted from the ED; cardiac cath planned in a.m. 2. Hypertension, uncontrolled, continue lisinopril Add carvedilol 3.125 mg p.o. twice daily 3. Hyperlipidemia, continue on on statin 4. Nicotine dependence, advised to quit, will put on replacement 5. DVT prophylaxis?Heparin SC 6. CODE STATUS?full code I discussed and explained in details the various types of CODE STATUS-full code, DNR CCA, DNR CC. Patient chose to be full code. He wants aggressive cardiopulmonary resuscitation, mechanical ventilator in the event of a cardiopulmonary arrest. Time spent discussing CODE STATUS 16 minutes Charges/Coding Visit Charges Inpatient E&M: 27964 Init Hosp L3 Procedures Hospitalists Procedures: 42606 Advncd Care Plan 30 Min
[2021-07-26 19:52] LABS: Hemoglobin A1c 5.7 % (3.8-5.6)
[2021-07-26] MEDS: 0.9% Normal Saline 1,000 ML 75 ML IV (21:06)
[2021-07-26 22:26] LABS: Troponin-I HS 6 pg/mL (3.0-78.0)
[2021-07-26] MEDS: Carvedilol 3.125 MG TABLET PO (22:46)
[2021-07-26] MEDS: Heparin Injection (Vial) 5,000 UNIT/ML VIAL 5000 UNIT SC (22:47)
[2021-07-26] MEDS: Atorvastatin Calcium 40 MG Tablet PO (22:47)
[2021-07-26] MEDS: TICAGRELOR 90 MG TABLET PO (22:47)
[2021-07-27] VITALS (11 sets, daily range): BP systolic 103–130; BP diastolic 59–77; PULSE 60–94; RESP 12–16; TEMP 36.6–36.9; O2SAT 95–98
--- NOTE | 2021-07-27 05:00 | EKG12_ITS ---
Test Reason : AM EKG Blood Pressure : / mmHG Vent. Rate : 059 BPM Atrial Rate : 059 BPM P-R Int : 174 ms QRS Dur : 086 ms QT Int : 424 ms P-R-T Axes : 075 072 069 degrees QTc Int : 419 ms Sinus bradycardia Otherwise normal ECG When compared with ECG of 26-JUL-2021 15:30, MANUAL COMPARISON REQUIRED, DATA IS UNCONFIRMED Confirmed by NIDHI TABARES, ANDREEA ([id number]), department editor MALLIKA ATKINSON ([id number]) on 07/30/2021 1:16:15 PM Referred By: JOSHUA Confirmed By:MILENA TERRELL MD
[2021-07-27 05:45] LABS: Absolute Lymphocyte Count 2.44 X10^3/uL (0.83-4.51); Absolute Neutrophil Count 4.4 X10^3/uL (2.0-7.7); Basophil# 0.06 X10^3/uL; Basophil% 0.7 % (0-1); Eosinophil# 0.43 X10^3/uL; Eosinophils% 5.3 % (0-5); Hematocrit 42.9 % (40-54); Hemoglobin 14.4 g/dL (13.0-16.5); Lymphocyte # 2.44 X10^3/ul (0.83-4.51); Lymphocyte % 30.3 % (19-41); Mean Corp Hgb Conc 33.6 g/dL (32-36); Mean Corpuscular Hgb 31.2 pg (27.0-32.0); Mean Corpuscular Volume 92.9 fL (80-94); Mean Platelet Vol. 10.3 fl (6.2-12.0); Monocyte# 0.66 X10^3/uL; Monocyte% 8.2 % (0-10); NRBC Flagged by Analyzer 0 % (0-5); Neutrophil # 4.42 X10^3/uL (2.7-7.7); Platelet Count 248 K/mm3 (150-450); RBC Distribution Width CV 12.9 % (11.6-14.6); RBC Distribution Width SD 44.6 fl (35.1-43.9); Red Blood Count 4.62 M/mm3 (4.6-6.2); White Blood Count 8.1 K/mm3 (4.4-11.0)
[2021-07-27] MEDS: Carvedilol 3.125 MG TABLET PO (05:46)
[2021-07-27] MEDS: TICAGRELOR 90 MG TABLET PO (05:46)
[2021-07-27] MEDS: Lisinopril 5 MG Tablet PO (05:46)
[2021-07-27] MEDS: Aspirin E.C. 81 MG Tablet PO (05:46)
[2021-07-27 06:13] LABS: ALB/GLOB Ratio 1.2 RATIO (0.9-2.4); AST(SGOT) 16 U/L (15-37); Alanine Aminotransfer ALT/SGPT 22 U/L (16-61); Albumin, Serum 3.5 g/dL (3.2-5.0); Alkaline Phosphatase 77 U/L (45-117); Anion Gap 4 (5-15); BUN 17 mg/dL (7-18); BUN/Creat Ratio 20.7 RATIO (10-20); Calcium,Total 8.6 mg/dL (8.5-10.1); Chloride 108 mmol/L (98-107); Creatinine, Serum 0.82 mg/dL (0.70-1.30); EST Glomerular Filtration Rate 99 mL/min (>60); Est Glom Filt Rate - Afr Amer 120 mL/min (>60); Estimated Creatinine Clearance 102.75 ml/min; Glucose 82 mg/dL (74-106); Potassium 3.8 mmol/L (3.5-5.1); Protein, Total 6.5 g/dL (6.4-8.2); Sodium Level 139 mmol/L (136-145)
--- NOTE | 2021-07-27 09:13 | CASEMGMT ---
Tertiary facilities in-network with patient's insurance include: [facility], [facility], [facility], [facility], [facility], [facility], , and [facility]
[2021-07-27] MEDS: 0.9% Normal Saline 1,000 ML 15 ML IV (09:23)
--- NOTE | 2021-07-27 11:06 | CON.PCM.CA_ITS ---
Assessment & Plan Assessment/Plan (1) Chest pain: QUALIFIERS: Chest pain type: unspecified Qualified Code(s): R07.9 - Chest pain, unspecified PLAN: Patient was evaluated prior to coronary angiography and because of his chest pain that had some features similar to what he had prior to PCI we proceeded with coronary angiography which revealed patent stents. He did have a 50-60% stenosis in the distal RCA. It is unclear if this is the culprit for his presentation. There are some features of his chest pain that seem to be GI in origin as well. Explained this to the patient. We will continue medical therapy for CAD. If patient has persistent chest discomfort and a GI etiology is ruled out then we can consider PCI of the distal RCA as an outpatient. HPI Consult Data Date of Consult: 07/27/21 HPI Narrative HPI Narrative: JARON MIRELES, is a 66 M who presents with chest discomfort. He has coronary artery disease with stenting to his LAD and circumflex on March 04, 2019. He also has a history of hyperlipidemia and tobacco abuse. He underwent repeat cardiac catheterization March of the same year and his stents were noted to be patent with preserved ejection fraction and no wall motion abnormalities noted. Chest discomfort was similar to what he had prior to PCI. However a few weeks after his PCI he had similar symptoms and at that time his cardiac cath did not show any significant stenoses. Patient also has acid reflux and he had some symptoms that appear to be of GI origin as well. Stress test is an option but patient states that prior to PCI his stress test turned out to be normal and prefers to undergo coronary angiography if further work-up is required. [facility] Medical History (Updated 07/27/21 @ 11:[address] Harriet Osborne MD) Atherosclerotic heart disease makah coronary artery w/angina pectoris COPD (chronic obstructive pulmonary disease) Elevated blood pressure reading in office without diagnosis of hypertension Essential (primary) hypertension GERD (gastroesophageal reflux disease) Hyperlipidemia Nicotine dependence Home Medications acetaminophen 500 mg PO Q4H PRN PRN #20 tab 08/28/18 [Rx Last Taken Unknown] nitroglycerin 0.4 mg sublingual tablet 0.4 mg SUBLINGUAL Q5-15M 04/16/19 [History Last Taken Unknown] omeprazole 40 mg capsule,delayed release 40 mg PO DAILY 10/19/19 [History Last Taken Unknown] tamsulosin 0.4 mg capsule 0.4 mg PO DAILY 10/19/19 [History Last Taken Unknown] ascorbic acid (vitamin C) 1,000 mg tablet 1 g PO DAILY tab 05/16/20 [History Last Taken Unknown] cholecalciferol (vitamin D3) 125 mcg (5,000 unit) capsule 125 mcg PO DAILY 05/16/20 [History Last Taken Unknown] zinc acetate 50 mg (zinc) capsule 50 mg PO DAILY 05/16/20 [History Last Taken Unknown] lisinopril 5 mg tablet 5 mg PO DAILY #30 tab 12/18/20 [Rx Last Taken Unknown] atorvastatin 40 mg tablet 40 mg PO QHS #90 tab 04/25/21 [Rx Last Taken Unknown] ticagrelor 90 mg tablet 90 mg PO BID #180 tab 05/14/21 [Rx Last Taken Unknown] aspirin 81 mg tablet,delayed release 81 mg PO BID tab 05/15/21 [History Last Taken Unknown] coenzyme Q10 200 mg capsule 200 mg PO DAILY 05/15/21 [History Last Taken Unknown] fluticasone propionate 50 mcg/actuation nasal spray,suspension 2 spray INTRANASAL DAILY g 05/15/21 [History Last Taken Unknown] Allergy/AdvReac Type Severity Reaction Status Date / Time No Known Allergies Allergy Verified 05/15/21 13:25 Family History Brother CVA (cerebral vascular accident) Diabetes Brother CVA (cerebral vascular accident) Diabetes Sister Diabetes Hypertension Son Hypertension Father , age 63 Myocardial infarction, Onset Age: 41 Surgical History History of coronary artery stent placement (03/04/19) History of left heart catheterization (03/12/19) Social History Smoking Status: Current every day smoker tobacco type: cigarettes Tobacco: How many years used: 45 alcohol intake: never substance use type: does not use caffeine: Yes Type: coffee Number of servings: 4 Physical Exam Const alert and oriented x3 Orientation / Consciousness: awake HEENT normocephalic Eyes no scleral icterus Neck supple Chest inspection of chest normal Resp normal respiratory effort Cardio regular rate Skin no rashes or lesions noted Neuro oriented x3 Psych mental status grossly normal Risk Stratification Risk Stratification Applicable: No Charges/Coding Visit Charges Inpatient E&M: 88772 Init Hosp L2 Objective Data Vital Signs: Vital Signs Temp Pulse Resp BP Pulse Ox 98.3 F 64 12 117/75 97 07/27/21 08:04 07/27/21 08:04 07/27/21 08:04 07/27/21 08:04 07/27/21 08:04 Oxygen Delivery Method Room Air Weight: 183 lb 3.266 oz Body Mass Index (BMI) 22.8 Intake & Output: Intake and Output for Last 24 Hours 07/25/21 07/26/21 07/27/21 23:59 23:59 23:59 Intake Total 1000 / 1000 Balance 1000 / 1000 Lab / Micro Data Result Diagrams: 07/27/21 04:43 07/27/21 04:43 Labs: Laboratory Results - last 24 hr 07/26/21 15:31: WBC 9.3, RBC 4.79, Hgb 15.7, Hct 44.5, MCV 92.9, MCH 32.8 H, MCHC 35.3, RDW Std Deviation 44.4 H, RDW Coeff of Vita 13.0, Plt Count 274, MPV 10.1, Immature Gran % (Auto) 0.500, Neut % (Auto) 64.8, Lymph % (Auto) 23.0, [place] % (Auto) 7.6, Eos % (Auto) 3.2, Baso % (Auto) 0.9, Absolute Neuts (auto) 6.0, Absolute Lymphs (auto) 2.14, Nucleated RBC % 0 07/26/21 15:31: D-Dimer Quant (PE/DVT) 0.30 07/26/21 15:31: Sodium 139, Potassium 3.6, Chloride 105, Carbon Dioxide 32.0, Anion Gap 2 L, BUN 24 H, Creatinine 1.10, Estim Creat Clear Calc 77.42, Est GFR (MDRD) Af Amer 86, Est GFR (MDRD) Non-Af 71, BUN/Creatinine Ratio 21.8 H, Glucose 123 H, Calcium 8.8, Troponin I High Sens 4 07/26/21 15:31: Hemoglobin A1c 5.7 H 07/26/21 17:25: Troponin I High Sens 4 07/26/21 21:50: Troponin I High Sens 6 07/27/21 04:43: WBC 8.1, RBC 4.62, Hgb 14.4, Hct 42.9, MCV 92.9, MCH 31.2, MCHC 33.6, RDW Std Deviation 44.6 H, RDW Coeff of Vita 12.9, Plt Count 248, MPV 10.3, Immature Gran % (Auto) 0.500, Neut % (Auto) 55.0, Lymph % (Auto) 30.3, [place] % (Auto) 8.2, Eos % (Auto) 5.3 H, Baso % (Auto) 0.7, Absolute Neuts (auto) 4.4, Absolute Lymphs (auto) 2.44, Nucleated RBC % 0 07/27/21 04:43: Sodium 139, Potassium 3.8, Chloride 108 H, Carbon Dioxide 27.0, Anion Gap 4 L, BUN 17, Creatinine 0.82, Estim Creat Clear Calc 102.75, Est GFR (MDRD) Af Amer 120, Est GFR (MDRD) Non-Af 99, BUN/Creatinine Ratio 20.7 H, Gl ucose 82, Calcium 8.6, Total Bilirubin 0.50, AST 16, ALT 22, Alkaline Phosphatase 77, Total Protein 6.5, Albumin 3.5, Globulin 3.0, Albumin/Globulin Ratio 1.2 Cardiology Labs/Tests 07/26/21 15:31: WBC 9.3, RBC 4.79, Hgb 15.7, Hct 44.5, MCV 92.9, MCH 32.8 H, MCHC 35.3, Plt Count 274, MPV 10.1, Immature Gran % (Auto) 0.500, Neut % (Auto) 64.8, Lymph % (Auto) 23.0, [place] % (Auto) 7.6, Eos % (Auto) 3.2, Baso % (Auto) 0.9, Absolute Neuts (auto) 6.0, Nucleated RBC % 0 07/26/21 15:31: D-Dimer Quant (PE/DVT) 0.30 07/26/21 15:31: Sodium 139, Potassium 3.6, Chloride 105, Carbon Dioxide 32.0, Anion Gap 2 L, BUN 24 H, Creatinine 1.10, Est GFR (MDRD) Af Amer 86, Est GFR (MDRD) Non-Af 71, BUN/Creatinine Ratio 21.8 H, Glucose 123 H, Calcium 8.8 07/26/21 15:31: Hemoglobin A1c 5.7 H 07/27/21 04:43: WBC 8.1, RBC 4.62, Hgb 14.4, Hct 42.9, MCV 92.9, MCH 31.2, MCHC 33.6, Plt Count 248, MPV 10.3, Immature Gran % (Auto) 0.500, Neut % (Auto) 55.0, Lymph % (Auto) 30.3, [place] % (Auto) 8.2, Eos % (Auto) 5.3 H, Baso % (Auto) 0.7, Absolute Neuts (auto) 4.4, Nucleated RBC % 0 07/27/21 04:43: Sodium 139, Potassium 3.8, Chloride 108 H, Carbon Dioxide 27.0, Anion Gap 4 L, BUN 17, Creatinine 0.82, Est GFR (MDRD) Af Amer 120, Est GFR (MDRD) Non-Af 99, BUN/Creatinine Ratio 20.7 H, Glucose 82, Calcium 8.6, Total Bilirubin 0.50 Rhythm: EKG: ECHO: Stress Test: Cardiac Cath: PCI: CT Surgery: Holter monitor: EPS: PPM: CXR: Chest CT Scan: Radiography Diagnostic Testing: Radiology Impression Chest X-Ray 07/26/21 15:43 IMPRESSION: Hyperinflation. The lungs are clear. Electronically Signed: Jaret Yo MD at 15:56 EST ,
[2021-07-27] MEDS: Tamsulosin HCl 0.4 MG Capsule PO (11:13)
[2021-07-27] MEDS: Pantoprazole Sodium 40 MG Tablet PO (11:14)
[2021-07-27] MEDS: Fluticasone 0.05% 1 SPRAY NASAL.SRY 2 SPRAY NASAL (11:14)
[2021-07-27] MEDS: Ascorbic Acid 500 MG Tablet 1000 MG PO (11:14)
--- NOTE | 2021-07-27 12:11 | PCM.DC ---
Discharge Instructions Diet Discharge Diet: No restrictions Activity Discharge Activity: Return to Normal Activity Weight Bearing Status: Weight bearing as tolerated Dressing / Incision Call your doctor if you observe: Fever of 101 or Higher, Numbness or Tingling, Shortness of breath, Dizziness, Chest pain, Increased palpitations (irregular heartbeat) and Calf discomfort Follow Up Care Please Follow Up With: Primary care provider When: Within the next two weeks. Test Results: Test results from this visit will be discussed in further detail at your follow-up appointment, if applicable. Discharge Plan Admission Admit Date/Time: 07/26/21 19:02 Primary Reason for Your Visit: Chest pain Attending Provider: Castro Osborne Primary Care Provider: Bi Trujillo Consulting Providers: Harriet Osborne Instructions Patient Instructions: ED Chest Pain, Noncardiac Discharge Orders/Prescriptions Prescriptions: Continued tamsulosin 0.4 mg capsule 0.4 mg PO DAILY RF: 0 nitroglycerin 0.4 mg tablet, sublingual 0.4 mg SUBLINGUAL Q5-15M RF: 0 ascorbic acid (vitamin C) 1,000 mg tablet 1 g PO DAILY RF: 0 cholecalciferol (vitamin D3) 125 mcg (5,000 unit) capsule 125 mcg PO DAILY RF: 0 zinc acetate 50 mg (zinc) capsule 50 mg (zinc) capsule 50 mg PO DAILY RF: 0 coenzyme Q10 [Co Q-10] 200 mg capsule 200 mg PO DAILY RF: 0 fluticasone propionate 50 mcg/actuation spray,suspension 2 spray intranasal DAILY RF: 0 acetaminophen 500 MG tablet 500 mg PO Q4H PRN PRN (Reason: Pain) Qty: 20 RF: 0 aspirin 81 mg tablet,delayed release (DR/EC) 81 mg PO BID RF: 0 lisinopril 5 mg tablet 5 mg PO DAILY Qty: 30 RF: 12 atorvastatin 40 mg tablet 40 mg PO QHS Qty: 90 RF: 3 ticagrelor 90 mg tablet 90 mg PO BID Qty: 180 RF: 3 Changed omeprazole 40 mg capsule,delayed release(DR/EC) 80 mg PO DAILY Qty: 0 RF: 0 Referrals / Follow Up: Keith Azevedo MD [STAFF PHYSICIAN] - Within 2 Weeks Bi Trujillo MD [Primary Care Provider] - Within 2 Weeks Disposition Disposition (needs filled in before D/C Order can be placed): Home, Self Care
--- NOTE | 2021-07-27 15:35 | DS.PCM_ITS ---
Documented by User: Chris HOLLIS 07/27/21 15:44 Providers Date of Admission: 07/26/21 Primary Care Physician: Dr. Bi Trujillo MD Consultations 07/26/21 19:52 Consult: Cardiology Routine Consulting Provider: Harriet Osborne Reason for Consult: Chest pain EMERGENT Consult: No MD Notified: Yes Date Notified: 07/26/21 Time Notified: 19:08 Method of Notification: Verbal Method of Consult:: In-Person Comments:: Notified from ED Reason For Visit: CHEST PAIN Diagnosis Discharge Diagnosis (1) Chest pain: Status: Acute Code(s): R07.9 - Chest pain, unspecified Qualifiers: Chest pain type: unspecified Qualified Code(s): R07.9 - Chest pain, unspecified Medications at Discharge Home Medications acetaminophen 500 mg PO Q4H PRN PRN #20 tab 08/28/18 nitroglycerin 0.4 mg sublingual tablet 0.4 mg SUBLINGUAL Q5-15M 04/16/19 tamsulosin 0.4 mg capsule 0.4 mg PO DAILY 10/19/19 ascorbic acid (vitamin C) 1,000 mg tablet 1 g PO DAILY tab 05/16/20 cholecalciferol (vitamin D3) 125 mcg (5,000 unit) capsule 125 mcg PO DAILY 05/16/20 zinc acetate 50 mg (zinc) capsule 50 mg PO DAILY 05/16/20 lisinopril 5 mg tablet 5 mg PO DAILY #30 tab 12/18/20 atorvastatin 40 mg tablet 40 mg PO QHS #90 tab 04/25/21 ticagrelor 90 mg tablet 90 mg PO BID #180 tab 05/14/21 aspirin 81 mg tablet,delayed release 81 mg PO BID tab 05/15/21 coenzyme Q10 200 mg capsule 200 mg PO DAILY 05/15/21 fluticasone propionate 50 mcg/actuation nasal spray,suspension 2 spray INTRANASAL DAILY g 05/15/21 omeprazole 80 mg PO DAILY #0 cap 07/27/21 Hospital Course Procedures Cardiac catheterization Summary of Care Provided Minutes Spent on Discharge: 20 Hospital Course: Patient is a 66-year-old male who was admitted to [facility] on 07/26/2021 for evaluation and management of chest pain with severe indigestion. Although patient's high-sensitivity troponins were not elevated, heart score was noted to be 6 on admission. Given significant history and risk factors, cardiology consult was obtained and catheterization was performed on 07/27 which did reveal 50 to 60% stenosis in the distal RCA, however prior stents were still patent. Given mild degree of stenosis and otherwise patent stents, recommendation from cardiology was to continue current medical management and to have patient follow-up with primary care provider for possible exploration into GI causes of patient's chest pain. Patient's home omeprazole was increased from 40 to 80 mg daily and patient was advised to follow-up with primary care provider and Dr. Azevedo within the next 2 weeks. Patient seen by Chris Gtz PA-C, under the supervision of Dr. Osborne. Time spent on patient care: 20 minutes. Physical Exam Narrative Patient is a 66-year-old male comfortably resting in bed, alert and orient x3. Patient denies any further episodes of chest pain or shortness of breath. Does not appear in acute distress. Const alert, oriented x3 and no apparent distress HEENT normocephalic, head/scalp atraumatic and hearing grossly normal bilaterally Eyes PERRL and conjunctivae normal Neck no lymphadenopathy, supple and no JVD Resp normal respiratory effort, no retractions and no use of accessory muscles Cardio regular rate, regular rhythm and no JVD GI normal to inspection, nondistended, normoactive bowel sounds Extremity normal to inspection Skin no rashes or lesions noted Neuro CN's II-XII intact bilaterally Psych affect normal Weight / BMI Weight Weight: 183 lb 3.266 oz Body Mass Index (BMI) 22.8 ABG / Lab / Microbiology Data Result Diagrams: 07/27/21 04:43 07/27/21 04:43 Laboratory: Laboratory Results - last 24 hr 07/26/21 15:31: WBC 9.3, RBC 4.79, Hgb 15.7, Hct 44.5, MCV 92.9, MCH 32.8 H, MCHC 35.3, RDW Std Deviation 44.4 H, RDW Coeff of Vita 13.0, Plt Count 274, MPV 10.1, Immature Gran % (Auto) 0.500, Neut % (Auto) 64.8, Lymph % (Auto) 23.0, [place] % (Auto) 7.6, Eos % (Auto) 3.2, Baso % (Auto) 0.9, Absolute Neuts (auto) 6.0, Absolute Lymphs (auto) 2.14, Nucleated RBC % 0 07/26/21 15:31: D-Dimer Quant (PE/DVT) 0.30 07/26/21 15:31: Sodium 139, Potassium 3.6, Chloride 105, Carbon Dioxide 32.0, Anion Gap 2 L, BUN 24 H, Creatinine 1.10, Estim Creat Clear Calc 77.42, Est GFR (MDRD) Af Amer 86, Est GFR (MDRD) Non-Af 71, BUN/Creatinine Ratio 21.8 H, Glucose 123 H, Calcium 8.8, Troponin I High Sens 4 07/26/21 15:31: Hemoglobin A1c 5.7 H 07/26/21 17:25: Troponin I High Sens 4 07/26/21 21:50: Troponin I High Sens 6 07/27/21 04:43: WBC 8.1, RBC 4.62, Hgb 14.4, Hct 42.9, MCV 92.9, MCH 31.2, MCHC 33.6, RDW Std Deviation 44.6 H, RDW Coeff of Vita 12.9, Plt Count 248, MPV 10.3, Immature Gran % (Auto) 0.500, Neut % (Auto) 55.0, Lymph % (Auto) 30.3, [place] % (Auto) 8.2, Eos % (Auto) 5.3 H, Baso % (Auto) 0.7, Absolute Neuts (auto) 4.4, Absolute Lymphs (auto) 2.44, Nucleated RBC % 0 07/27/21 04:43: Sodium 139, Potassium 3.8, Chloride 108 H, Carbon Dioxide 27.0, Anion Gap 4 L, BUN 17, Creatinine 0.82, Estim Creat Clear Calc 102.75, Est GFR (MDRD) Af Amer 120, Est GFR (MDRD) Non-Af 99, BUN/Creatinine Ratio 20.7 H, Gluco se 82, Calcium 8.6, Total Bilirubin 0.50, AST 16, ALT 22, Alkaline Phosphatase 77, Total Protein 6.5, Albumin 3.5, Globulin 3.0, Albumin/Globulin Ratio 1.2 Radiography Diagnostic Testing: Radiology Impression Chest X-Ray 07/26/21 15:43 IMPRESSION: Hyperinflation. The lungs are clear. Electronically Signed: Jaret Yo MD at 15:56 EST , D/C Instructions Discharge Diet: No restrictions Weight Bearing Status: Weight bearing as tolerated Call your doctor if you observe: Fever of 101 or Higher, Numbness or Tingling, Shortness of breath, Dizziness, Chest pain, Increased palpitations (irregular heartbeat) and Calf discomfort Please Follow Up With: Primary care provider When: Within the next two weeks. Meaningful Use Info Meaningful Use Diagnoses (Choose all that apply): None applicable Discharge Plan Admission Admit Date/Time: 07/26/21 19:02 Primary Reason for Your Visit: Chest pain Attending Provider: Castro Osborne Primary Care Provider: Bi Trujillo Consulting Providers: Harriet Osborne Instructions Patient Instructions: ED Chest Pain, Noncardiac Discharge Orders/Prescriptions Prescriptions: Continued tamsulosin 0.4 mg capsule 0.4 mg PO DAILY RF: 0 nitroglycerin 0.4 mg tablet, sublingual 0.4 mg SUBLINGUAL Q5-15M RF: 0 ascorbic acid (vitamin C) 1,000 mg tablet 1 g PO DAILY RF: 0 cholecalciferol (vitamin D3) 125 mcg (5,000 unit) capsule 125 mcg PO DAILY RF: 0 zinc acetate 50 mg (zinc) capsule 50 mg (zinc) capsule 50 mg PO DAILY RF: 0 coenzyme Q10 [Co Q-10] 200 mg capsule 200 mg PO DAILY RF: 0 fluticasone propionate 50 mcg/actuation spray,suspension 2 spray intranasal DAILY RF: 0 acetaminophen 500 MG tablet 500 mg PO Q4H PRN PRN (Reason: Pain) Qty: 20 RF: 0 aspirin 81 mg tablet,delayed release (DR/EC) 81 mg PO BID RF: 0 lisinopril 5 mg tablet 5 mg PO DAILY Qty: 30 RF: 12 atorvastatin 40 mg tablet 40 mg PO QHS Qty: 90 RF: 3 ticagrelor 90 mg tablet 90 mg PO BID Qty: 180 RF: 3 Changed omeprazole 40 mg capsule,delayed release(DR/EC) 80 mg PO DAILY Qty: 0 RF: 0 Referrals / Follow Up: Keith Azevedo MD [STAFF PHYSICIAN] - Within 2 Weeks Bi Trujillo MD [Primary Care Provider] - Within 2 Weeks Disposition Disposition (needs filled in before D/C Order can be placed): Home, Self Care Documented by User: Dr. Castro Osborne MD 07/27/21 16:18 Providers Date of Admission: 07/26/21 Reason For Visit: CHEST PAIN Medications at Discharge Home Medications acetaminophen 500 mg PO Q4H PRN PRN #20 tab 08/28/18 nitroglycerin 0.4 mg sublingual tablet 0.4 mg SUBLINGUAL Q5-15M 04/16/19 tamsulosin 0.4 mg capsule 0.4 mg PO DAILY 10/19/19 ascorbic acid (vitamin C) 1,000 mg tablet 1 g PO DAILY tab 05/16/20 cholecalciferol (vitamin D3) 125 mcg (5,000 unit) capsule 125 mcg PO DAILY 05/16/20 zinc acetate 50 mg (zinc) capsule 50 mg PO DAILY 05/16/20 lisinopril 5 mg tablet 5 mg PO DAILY #30 tab 12/18/20 atorvastatin 40 mg tablet 40 mg PO QHS #90 tab 04/25/21 ticagrelor 90 mg tablet 90 mg PO BID #180 tab 05/14/21 aspirin 81 mg tablet,delayed release 81 mg PO BID tab 05/15/21 coenzyme Q10 200 mg capsule 200 mg PO DAILY 05/15/21 fluticasone propionate 50 mcg/actuation nasal spray,suspension 2 spray INTRANASAL DAILY g 05/15/21 omeprazole 80 mg PO DAILY #0 cap 07/27/21 ABG / Lab / Microbiology Data Result Diagrams: 07/27/21 04:43 07/27/21 04:43 Discharge Plan Admission Admit Date/Time: 07/26/21 19:02 Primary Reason for Your Visit: Chest pain Attending Provider: Castro Osborne Primary Care Provider: Bi Trujillo Consulting Providers: Harriet Osborne Instructions Patient Instructions: ED Chest Pain, Noncardiac Discharge Orders/Prescriptions Prescriptions: Continued tamsulosin 0.4 mg capsule 0.4 mg PO DAILY RF: 0 nitroglycerin 0.4 mg tablet, sublingual 0.4 mg SUBLINGUAL Q5-15M RF: 0 ascorbic acid (vitamin C) 1,000 mg tablet 1 g PO DAILY RF: 0 cholecalciferol (vitamin D3) 125 mcg (5,000 unit) capsule 125 mcg PO DAILY RF: 0 zinc acetate 50 mg (zinc) capsule 50 mg (zinc) capsule 50 mg PO DAILY RF: 0 coenzyme Q10 [Co Q-10] 200 mg capsule 200 mg PO DAILY RF: 0 fluticasone propionate 50 mcg/actuation spray,suspension 2 spray intranasal DAILY RF: 0 acetaminophen 500 MG tablet 500 mg PO Q4H PRN PRN (Reason: Pain) Qty: 20 RF: 0 aspirin 81 mg tablet,delayed release (DR/EC) 81 mg PO BID RF: 0 lisinopril 5 mg tablet 5 mg PO DAILY Qty: 30 RF: 12 atorvastatin 40 mg tablet 40 mg PO QHS Qty: 90 RF: 3 ticagrelor 90 mg tablet 90 mg PO BID Qty: 180 RF: 3 Changed omeprazole 40 mg capsule,delayed release(DR/EC) 80 mg PO DAILY Qty: 0 RF: 0 Referrals / Follow Up: Keith Azevedo MD [STAFF PHYSICIAN] - Within 2 Weeks Bi Trujillo MD [Primary Care Provider] - Within 2 Weeks Disposition Disposition (needs filled in before D/C Order can be placed): Home, Self Care Charges/Coding Addendum Addendum: Dr. Osborne: I personally reviewed the chart and examined the patient, and agree with the above findings. 66-year-old male with previous history of coronary artery disease and stenting presents to the hospital with atypical chest pain. He had 3 normal troponins however given his previous cardiac history cardiology was consulted and recommended a heart cath today. His heart cath today demonstrated some borderline lesions nothing in need to be intervened on currently, in discussion with cardiology they felt that if he had recurrent chest pain then they could potentially intervene in his RCA. We discussed modifications of any of his medications at this time they felt that he was optimized. I discussed with him the plan for discharge today as his chest pain has completely resolved, and he expressed understanding of the risk and benefits of going home, and would like to go home today. Clinical time spent in all aspects of patient care: 30 minutes Visit Charges OBSV E&M: 49267 Observation care discharge
--- NOTE | 2021-07-29 13:43 | CL.D_ITS ---
Patient Name: JARON MIRELES Study Date: 07/27/2021 Performing: Soha Osborne MD Ht: 75 inches 191 cm : 1955 Wt: 183.2 lbs 83 kg Age: 66 Gender: male BSA: 2.12 PROCEDURE(S) PERFORMED [id number])LHC/COR/LV CLINICAL PROFILE AND INDICATIONS Indications: Worsening Angina Heart Failure: None Stress/Imaging Stress/Image Study Performed: No CAD Presentations: Unstable angina. CONCLUSIONS CAD as described. Preserved EF. No significant or MR. RECOMMENDATIONS DESCRIPTION OF PROCEDURE The patient arrived to the procedure lab. The risks and benefits of the procedure as well as a full d escription of our services here and current unavailability of surgical backup were fully explained to the patient and/or their significant other prior to the catheterization. The Timeout was completed, verifying the correct patient and procedure. The patient's procedural site was prepped and draped in the usual fashion. Local anesthetic was given subcutaneously to right radial region with Lidocaine 2% . Using a modified Seldinger technique, arterial access was obtained via the right radial artery, a 6 Fr sheath was inserted. Left Coronary Artery selective angiography was performed in multiple views u sing a 5 Fr. JL3.5 catheter. Left Ventriculography was performed in JOSEPH projection using a 5 Fr.JR 4. LV to AO pullback pressures were then recorded. Right Coronary Artery selective angiography was then performed in multiple views using a 5 Fr. JR 4 catheter.The arterial sheath was pulled and a TR Band was applied for hemostasis w/ 12cc contrast CORONARY ANGIOGRAPHY DOMINANCE: Right Dominant LEFT HEART ASSESSMENT Left Ventricular Ejection Fraction: by LV Gram 65 % Normal LV wall motion LEFT MAIN: Mild diffuse disease LEFT ANTERIOR DESCENDING ARTERY: Mild luminal irregularities CIRCUMFLEX ARTERY: 40 % Stenosis OM 1: Proximal - Mild luminal irregularities OM 2: Proximal - 40 % Stenosis RIGHT CORONARY ARTERY: DISTAL RCA: 50-60 % Stenosis VALVE FINDINGS: No Aortic Valve Stenosis No Mitral Insufficiency COMPLICATIONS No Complications PROCEDURE MEDICATIONS Versed 1 mg IV Fentanyl 50 mcg IV Oxygen: 2 L/min via nasal cannula Heparin given IA 07/27/2021 10:29:50 Verapamil 2.5mg, Ntg 100mcgs, 3000 units of Heparin given IA 07/27/2021 10:29:50 SUMMARY OF HEMODYNAMIC DATA Time AIR REST ECG 09:24:10 AO 96/60 (73) SA 10:32:27 LV 117/-2, 13 10:38:30 LV 109/-2, 10 10:38:36 LV 109/1, 9 10:39:17 LV 113/4, 12 10:39:24 LVp 117/3, 13 10:39:27 AOp 109/56 (81) 10:39:32 Signed By Soha Osborne MD On 07/29/2021 13:42:46 Soha Osborne MD
== END 2021-07-27 14:08 | disposition home or self-care (01) ==
LOC: ED 18:47 → PCU 19:23
PROVIDERS: Admitting Provider Internal Medicine; Emergency Provider Student in an Organized Health Care Education/Training Program; PCP Family Medicine; Visit Provider Family Medicine
DX: I25.110 Atherosclerotic heart disease of native coronary artery with unstable angina pectoris (principal); J44.9 Chronic obstructive pulmonary disease, unspecified; I10 Essential (primary) hypertension; F17.210 Nicotine dependence, cigarettes, uncomplicated; E78.5 Hyperlipidemia, unspecified; K21.9 Gastro-esophageal reflux disease without esophagitis; Z79.899 Other long term (current) drug therapy; Z79.82 Long term (current) use of aspirin
CPT/HCPCS: 36415; 71045; 80048; 80053; 83036; 84484; 85025; 85379; 93005; 93458; 96360; 96361; 96372; 99152; 99153; 99218; 99285; J7030; A4216; C1769; C1894; G0378; Q9967

== ENCOUNTER 2021-09-04 08:35 | Outpatient (CLI) | payer OTHER, MEDICARE, SELFPAY ==
--- NOTE | 2021-09-04 08:39 | CDU_ITS ---
Reason For Study: brain fog, left neck pain, Hx CAD with stents Rt. Velocities/BP Lt. Velocities/BP Prox CCA 116.5/27.8 cm/sec. Prox CCA 120.7/26.2 cm/sec. Mid CCA 72.1/14.7 cm/sec. Mid CCA 87.6/21.2 cm/sec. Dist CCA 90.4/17.3 cm/sec. Dist CCA 101.1/23.7 cm/sec. Prox ICA 69.5/17.3 cm/sec. Prox ICA 65.1/21.2 cm/sec. Mid ICA 93.0/22.6 cm/sec. Mid ICA 87.1/24.5 cm/sec. Dist ICA 89.1/29.1 cm/sec. Dist ICA 114.6/32.3 cm/sec. Rt. ICA/CCA = 1.3. Lt. ICA/CCA = 1.3. Prox ECA 108.6/20.0 cm/sec. Prox ECA 133.9/18.8 cm/sec. Rt. Vert. 30.0 cm/sec. Lt. Vert. 67.9/20.0 cm/sec. Right Extracranial There is homogeneous, smooth atherosclerotic plaque noted in the right common carotid artery. There is heterogeneous, irregular atherosclerotic plaque noted in the right internal carotid artery. There is intimal thickening but no significant atherosclerotic plaque noted in the right external carotid artery. Antegrade flow is noted in the right vertebral artery. Left Extracranial There is homogeneous, smooth atherosclerotic plaque noted in the left common carotid artery. There is intimal thickening but no significant atherosclerotic plaque noted in the left internal carotid artery. There is heterogeneous, irregular atherosclerotic plaque noted in the left external carotid artery. Antegrade flow is noted in the left vertebral artery. Procedure Carotid Duplex [id number]. This is a Carotid Duplex examination using B-mode, color flow and specral Doppler. The exam was diagnostic. Exam performed in department. VL/Carotid Duplex Ultrasound Interpretation Summary Mild (<50%) stenosis right extracranial internal carotid. Mild (<50%) stenosis left extracranial internal carotid. Flow within the vertebral arteries is antegrade bilaterally. Ordering Physician: Elsy Briceno Referring Physician: Elsy Briceno Performed By: Jose L Arenas RVT
== END 2021-09-04 23:59 | disposition home or self-care (01) ==
LOC: CVS 08:36
PROVIDERS: PCP Family Medicine; Referring Provider Nurse Practitioner Gerontology; Visit Provider Nurse Practitioner Gerontology
DX: I25.119 Atherosclerotic heart disease of native coronary artery with unspecified angina pectoris (principal); M54.2 Cervicalgia; R41.89 Other symptoms and signs involving cognitive functions and awareness; F17.210 Nicotine dependence, cigarettes, uncomplicated; E78.5 Hyperlipidemia, unspecified; R07.9 Chest pain, unspecified; I10 Essential (primary) hypertension; Z95.5 Presence of coronary angioplasty implant and graft
CPT/HCPCS: 93880

== ENCOUNTER → 2021-11-20 | Outpatient (CLI) | payer OTHER, MEDICARE, SELFPAY ==
--- NOTE | 2021-11-20 08:24 | CT_ITS ---
STUDY: LOW DOSE CT LUNG CANCER SCREENING REASON FOR EXAM: Male, 66 years old. NICOTINE DEPENDENCY. 1PPD X 47 YEARS. COPD RADIATION DOSAGE (If Supplied By Facility): CTDIvol = ( 2.34 ) mGy, DLP = ( 92.96 ) mGycm TECHNIQUE: No contrast was administered. Low dose technique was utilized (average mAS-38 and kVp 120). 1.25 mm axial source images with a slice interval of 1.25-mm were reconstructed in lung windows. 2.5 mm axial source images with a slice interval of 2.5-mm were reconstructed in lung windows. 5.0 mm axial source images with a slice interval of 5.0-mm were reconstructed in soft tissue windows. COMPARISON: Comparison is made with prior study dated 02/23/2019. NODULES: No suspicious nodules seen. Emphysema: Hyperinflation. Emphysematous changes. Stable scarring in the upper lobes. Stable granuloma in the posterior aspect of the right upper lobe. Endobronchial lesion: Unremarkable Aorta: Mild calcification of the aortic arch. CORONARY ARTERIES: Coronary artery calcification is seen. Heart: Unremarkable Pulmonary artery: Unremarkable Mediastinal nodes: Small benign appearing mediastinal lymph nodes. Other chest and abdominal findings: CT/Low Dose CT Lung Screening IMPRESSION: Lung-RADS category 2 - Continue annual screening with LDCT in 12 months. IMPORTANT NOTES FOR USE: ACR Lung-RADS Version 1.1 Assessment Categories Release Date: 2018 Category: Coded 0-4 bases on nodule(s) with highest degree of suspicion. Negative screen is defined as categories 1 and 2; a positive screen is defined as categories 3 and 4. Category 3 and 4A nodules that are unchanged on interval CT should be coded as category 2, and individuals returned to screening in 12 months. Category 4X: Category 3 or 4 nodules with additional imaging findings that increase the suspicion of lung cancer, such as spiculation, GGN that doubles in size in 1 year, enlarged lymph notes, etc. Category Modifiers: S (significant finding unrelated to lung cancer) Electronically Signed: Jaret Yo MD at 10:50 EDT ,
== END | disposition home or self-care (01) ==
LOC: CT 08:22
PROVIDERS: PCP Family Medicine; Referring Provider Family Medicine; Visit Provider Family Medicine
DX: F17.210 Nicotine dependence, cigarettes, uncomplicated (principal)
CPT/HCPCS: 71271

== ENCOUNTER → 2021-11-28 | Outpatient (CLI) | payer OTHER, MEDICARE, SELFPAY ==
--- NOTE | 2021-11-28 08:47 | ART_ITS ---
Reason For Study: PVD Procedure A bilateral lower extremity continuous wave Doppler with analog waveform analysis,segmental pressures,and ankle brachial indexes with exercise. Left Segmental Pressures Left brachial= 107mmHg. Left posterior tibial artery = 142mmHg. Left dorsalis pedis artery = 133mmHg. The left dorsalis pedis waveforms are triphasic. The left posterior tibial artery waveforms are triphasic. Right Segmental Pressures Right brachial= 113mmHg. Right posterior tibial artery = 142mmHg. Right dorsalis pedis artery = 135mmHg. The right dorsalis pedis waveforms are triphasic. The right posterior tibial artery waveforms are triphasic. Indices The right ankle brachial index by the dorsalis pedis is 1.19. The right ankle brachial index by the posterior tibial artery is 1.26. The right post exercise ankle brachial index is 1.22. The left ankle brachial index by the dorsalis pedis is 1.18. The left ankle brachial index by the posterior tibial artery is 1.26. The left post exercise ankle brachial index is 1.31. VL/Lower Ext Art Exam w/ Exercise Interpretation Summary Triphasic Doppler waveforms are noted at ankle level bilaterally. Pulse-volume recordings appear satisfactory at all levels bilaterally. Resting ankle-brachial indices are norm al bilaterally. The patient ambulated on a treadmill for 5 minutes at 1.8 MPH and a 5% grade, follo wing which ankle pressures augmented bilaterally, a normal physiological response. There is no evidence of significant arterial occlusive disease in the lower ext remities bilaterally. Ordering Physician: Bi Trujillo Referring Physician: Bi Trujillo MD Performed By: Ramila Aguayo RVT
[2021-11-28 08:53] LABS: Absolute Lymphocyte Count 2.17 X10^3/uL (0.83-4.51); Absolute Neutrophil Count 5.4 X10^3/uL (2.0-7.7); Basophil# 0.06 X10^3/uL; Basophil% 0.7 % (0-1); Eosinophil# 0.28 X10^3/uL; Eosinophils% 3.2 % (0-5); Hematocrit 45.4 % (40-54); Hemoglobin 15.4 g/dL (13.0-16.5); Lymphocyte # 2.17 X10^3/ul (0.83-4.51); Lymphocyte % 24.9 % (19-41); Mean Corp Hgb Conc 33.9 g/dL (32-36); Mean Corpuscular Hgb 32.4 pg (27.0-32.0); Mean Corpuscular Volume 95.6 fL (80-94); Mean Platelet Vol. 10.1 fl (6.2-12.0); Monocyte# 0.74 X10^3/uL; Monocyte% 8.5 % (0-10); NRBC Flagged by Analyzer 0 % (0-5); Neutrophil # 5.44 X10^3/uL (2.7-7.7); Neutrophil % 62.2 % (47-70); Platelet Count 243 K/mm3 (150-450); RBC Distribution Width CV 12.8 % (11.6-14.6); RBC Distribution Width SD 44.9 fl (35.1-43.9); Red Blood Count 4.75 M/mm3 (4.6-6.2); White Blood Count 8.7 K/mm3 (4.4-11.0)
[2021-11-28 09:27] LABS: AST(SGOT) 19 U/L (15-37); Alanine Aminotransfer ALT/SGPT 25 U/L (16-61); Alkaline Phosphatase 79 U/L (45-117); Anion Gap 4 (5-15); BUN 22 mg/dL (7-18); BUN/Creat Ratio 23.5 RATIO (10-20); Bilirubin, Direct 0.19 mg/dL (0.00-0.30); Chloride 105 mmol/L (98-107); Cholesterol 119 mg/dL (200); Creatinine, Serum 0.94 mg/dL (0.70-1.30); EST Glomerular Filtration Rate 85 mL/min (>60); Est Glom Filt Rate - Afr Amer 103 mL/min (>60); Glucose 91 mg/dL (74-106); High Density Lipoprotein 43 mg/dL; Potassium 4.4 mmol/L (3.5-5.1); Sodium Level 139 mmol/L (136-145); Thyroid Stim Hormone (TSH) 2.66 uIU/mL (0.358-3.74); Triglycerides 89 mg/dL; Very Low Density Lipoprotein 18 mg/dL (5-40)
== END | disposition home or self-care (01) ==
LOC: CVS 08:37
PROVIDERS: Nurse Practitioner Gerontology; PCP Family Medicine; Visit Provider Family Medicine
DX: E78.5 Hyperlipidemia, unspecified (principal); I73.9 Peripheral vascular disease, unspecified; R53.83 Other fatigue
CPT/HCPCS: 36415; 80048; 80061; 80076; 84443; 85025; 93924

== ENCOUNTER → 2021-12-04 | Outpatient (CLI) | payer OTHER, MEDICARE, SELFPAY ==
[2021-12-04 15:39] LABS: Vitamin B12 545 pg/mL (211-911); Vitamin D,25 Hydroxy 59.1 ng/mL
[2021-12-04 15:44] LABS: ALB/GLOB Ratio 1.3 RATIO (0.9-2.4); AST(SGOT) 21 U/L (15-37); Alanine Aminotransfer ALT/SGPT 28 U/L (16-61); Albumin, Serum 4.3 g/dL (3.2-5.0); Alkaline Phosphatase 80 U/L (45-117); Anion Gap 5 (5-15); BUN 17 mg/dL (7-18); BUN/Creat Ratio 17.7 RATIO (10-20); Calcium,Total 9.4 mg/dL (8.5-10.1); Chloride 103 mmol/L (98-107); Creatinine, Serum 0.96 mg/dL (0.70-1.30); EST Glomerular Filtration Rate 83 mL/min (>60); Est Glom Filt Rate - Afr Amer 100 mL/min (>60); Globulin 3.2 g/dL (2.2-4.2); Glucose 92 mg/dL (74-106); Potassium 4.7 mmol/L (3.5-5.1); Protein, Total 7.5 g/dL (6.4-8.2); Sodium Level 138 mmol/L (136-145); T4 Free Direct 0.99 ng/dL (0.76-1.46)
== END | disposition home or self-care (01) ==
LOC: MFPLAB 13:39
PROVIDERS: PCP Family Medicine; Visit Provider Family Medicine
DX: R53.83 Other fatigue (principal)
CPT/HCPCS: 36415; 80053; 82306; 82607; 84439

== ENCOUNTER → 2022-05-16 | Outpatient (CLI) | payer OTHER, MEDICARE, SELFPAY ==
--- NOTE | 2022-05-16 | RAD_ITS ---
STUDY: X-RAY CHEST REASON FOR EXAM: Male, 67 years old. chest pain TECHNIQUE: XR Chest 2 Views COMPARISON: 07.26.21 FINDINGS: There is atherosclerotic calcification of the aortic arch with tortuosity. There are diffuse degenerative changes of the visualized thoracic spine. There is degenerative osteoarthritis of the bilateral shoulders. There is no demonstrated pleural abnormality. Normal size heart. Normal mediastinum and barbra. Normal visualized pulmonary arteries. There is no demonstrated abnormality of the visualized soft tissue structures of the upper abdomen. RAD/Chest PA and Lateral IMPRESSION: There are no acute findings. Electronically Signed: Junior Chavez MD at 19:47 EST ,
[2022-05-16 13:44] LABS: Absolute Lymphocyte Count 2.24 X10^3/uL (0.83-4.51); Absolute Neutrophil Count 6.2 X10^3/uL (2.0-7.7); Basophil# 0.08 X10^3/uL; Basophil% 0.8 % (0-1); Eosinophil# 0.31 X10^3/uL; Eosinophils% 3.2 % (0-5); Hematocrit 47.1 % (40-54); Hemoglobin 15.9 g/dL (13.0-16.5); Lymphocyte # 2.24 X10^3/ul (0.83-4.51); Lymphocyte % 23.3 % (19-41); Mean Corp Hgb Conc 33.8 g/dL (32-36); Mean Corpuscular Hgb 32.3 pg (27.0-32.0); Mean Corpuscular Volume 95.7 fL (80-94); Mean Platelet Vol. 10.3 fl (6.2-12.0); Monocyte# 0.76 X10^3/uL; Monocyte% 7.9 % (0-10); NRBC Flagged by Analyzer 0 % (0-5); Neutrophil # 6.18 X10^3/uL (2.7-7.7); Neutrophil % 64.4 % (47-70); Platelet Count 295 K/mm3 (150-450); RBC Distribution Width CV 13.2 % (11.6-14.6); RBC Distribution Width SD 46.1 fl (35.1-43.9); Red Blood Count 4.92 M/mm3 (4.6-6.2); White Blood Count 9.6 K/mm3 (4.4-11.0)
[2022-05-16 14:19] LABS: Anion Gap 4 (5-15); BUN 19 mg/dL (7-18); BUN/Creat Ratio 17.3 RATIO (10-20); Calcium,Total 9.3 mg/dL (8.5-10.1); Chloride 107 mmol/L (98-107); EST Glomerular Filtration Rate 71 mL/min (>60); Est Glom Filt Rate - Afr Amer 86 mL/min (>60); Glucose 100 mg/dL (74-106); Potassium 4.2 mmol/L (3.5-5.1); Sodium Level 141 mmol/L (136-145)
== END | disposition home or self-care (01) ==
PROVIDERS: Internal Medicine Cardiovascular Disease; PCP Family Medicine; Visit Provider Nurse Practitioner Family
DX: R07.9 Chest pain, unspecified (principal); I70.0 Atherosclerosis of aorta; M19.011 Primary osteoarthritis, right shoulder; M19.012 Primary osteoarthritis, left shoulder; Z95.5 Presence of coronary angioplasty implant and graft
CPT/HCPCS: 36415; 71046; 80048; 85025

== ENCOUNTER 2022-05-22 10:10 | Day surgery (SDC) | payer OTHER, MEDICARE, SELFPAY ==
[2022-05-21 07:45] VITALS: BMI 20.3
--- NOTE | 2022-05-27 10:14 | CL.D_ITS ---
Patient Name: JARON MIRELES Study Date: 05/22/2022 Performing: Keith Azevedo MD Ht: 75 inches 190.5 cm : 1955 Wt: 163.2 lbs 73.94 kg Age: 67 Gender: male BSA: 2.01 PROCEDURE(S) PERFORMED [id number])LHC/COR/LV CLINICAL PROFILE AND INDICATIONS Indications: Suspected CAD Heart Failure: None Stress/Imaging Stress/Image Study Performed: No CAD Presentations: Stable angina. CONCLUSIONS Moderate CAD of RCA and preserved LV Patient also noted to have a calcified nodule on the left ventricle or pericardium. Would recommend CT for evaluation of this. RECOMMENDATIONS Medical therapy DESCRIPTION OF PROCEDURE The patient arrived to the procedure lab. The risks and benefits of the procedure as well as a full description of our services here and current unavailability of surgical backup were fully explained to the patient and/or their significant other prior to the catheterization. The Timeout was completed, verifying the correct patient and procedure. The patient's procedural site was prepped and draped in the usual fashion. Local anesthetic was given subcutaneously to right radial region with Lidocaine 2%. Using a modified Seldinger technique, arterial access was obtained via the right radial artery, a 6Fr sheath was inserted. Left Coronary Artery selective angiography was performed in multiple views using a 5 Fr. 4.0 Lima catheter. Right Coronary Artery selective angiography was then performed in multiple views using a 5 Fr. 4.0 Lima catheter. Left Ventriculography was performed in JOSEPH projection using a 5 Fr. Pigtail catheter. LV to AO pullback pressures were then recorded.The arterial sheath was pulled and a TR Band was applied for hemostasis - 10cc air CORONARY ANGIOGRAPHY DOMINANCE: Right Dominant LEFT HEART ASSESSMENT Left Ventricular Ejection Fraction: by LV Gram 60 % Normal LV wall motion Normal Left Ventricular systolic function LEFT MAIN: Mild calcification, Mild luminal irregularities LEFT ANTERIOR DESCENDING ARTERY: Mild luminal irregularities less than 30% CIRCUMFLEX ARTERY: Mild luminal irregularities less than 30% RIGHT CORONARY ARTERY: Moderate luminal irregularities up to 50% COMPLICATIONS No Complications PROCEDURE MEDICATIONS Fentanyl 50 mcg IV Versed 1 mg IV Versed 1 mg IV Oxygen: 2 L/min via nasal cannula Heparin given IA 05/22/2022 12:25:16 Verapamil 2.5mg, Ntg 100mcgs, 3000 units of Heparin given IA 05/22/2022 12:25:16 IV Bolus: .9 NaCl 200 ml total 05/22/2022 12:33:42 SUMMARY OF HEMODYNAMIC DATA Time AIR REST ECG 10:30:11 AO 109/63 (80) SA 12:30:59 LV 95/3, 17 12:37:07 LV 85/1, 10 12:37:15 LV 99/6, 25 12:37:56 LV 97/4, 14 12:38:04 LVp 101/4, 16 12:38:07 AOp 108/60 (81) 12:38:15 AIR REST 12:50:28 Signed By Keith Azevedo MD On 05/27/2022 10:13:05 Keith Azevedo MD
== END 2022-05-22 14:20 | disposition home or self-care (01) ==
LOC: CLSP 10:15
PROVIDERS: PCP Family Medicine; Referring Provider Internal Medicine Cardiovascular Disease; Visit Provider Internal Medicine Cardiovascular Disease
DX: I25.119 Atherosclerotic heart disease of native coronary artery with unspecified angina pectoris (principal); J44.9 Chronic obstructive pulmonary disease, unspecified; F17.210 Nicotine dependence, cigarettes, uncomplicated; I10 Essential (primary) hypertension; E78.5 Hyperlipidemia, unspecified; K21.9 Gastro-esophageal reflux disease without esophagitis; Z95.5 Presence of coronary angioplasty implant and graft; Z79.82 Long term (current) use of aspirin; Z79.899 Other long term (current) drug therapy
CPT/HCPCS: 93458; 99152; 99153; J7040; C1769; C1894; Q9967

== ENCOUNTER → 2022-06-21 | Outpatient (CLI) | payer OTHER, MEDICARE, SELFPAY ==
--- NOTE | 2022-06-21 12:54 | ECHOCS_ITS ---
Reason For Study: Pericardial Mass Procedure This was a 2D Doppler, Color Flow transthoracic echocardiogram. Contrast injection was performed. Exam performed in department. Left Ventricle Normal LV size. Left ventricular systolic function is normal. The estimated ejection fraction is 55 %. Stage 1 diastolic dysfunction. No regional wall motion abnormalities noted. Right Ventricle Normal RV size. Normal systolic function. Atria Normal left atrium. Normal right atrium. Mitral Valve Normal mitral valve. Tricuspid Valve Normal tricuspid valve. Mild tricuspid valve insufficiency. Pulmonary artery systolic pressure is 26 mmHg. Aortic Valve Trisinus/trileaflet aortic valve. Mild focal aortic valve thickening. Mild (1+) aortic valve insufficiency. Pulmonic Valve Normal pulmonic valve. Great Vessels Normal aortic root. The pulmonary artery is normal size. Normal inferior vena cava. Pericardium/Pleural No pericardial effusion. Medication 22 gauge I.V. with prn adaptor inserted into right arm. Diluted definity 2ml given slow IV push to enhance endocardial definition. MMode/2D Measurements & Calculations LVIDd: 5.0 cm IVSd: 1.1 cm Ao root diam: 2.9 cm LVIDs: 3.4 cm LVPWd: 0.70 cm RVDd: 3.4 cm FS: 33.4 % LAV(MOD-sp4): 24.7 ml LVAd ap4: 32.6 cm2 LVAd ap2: 33.3 cm2 LVLd ap4: 8.4 cm LVLd ap2: 8.1 cm EDV(MOD-sp4): 105.3 ml EDV(MOD-sp2): 114.4 ml EDV(sp4-el): 107.0 ml EDV(sp2-el): 116.3 ml LVAs ap4: 17.9 cm2 LVAs ap2: 17.8 cm2 LVLs ap4: 6.3 cm LVLs ap2: 6.9 cm ESV(MOD-sp4): 43.4 ml ESV(MOD-sp2): 38.2 ml ESV(sp4-el): 43.0 ml ESV(sp2-el): 39.1 ml EF(MOD-sp4): 58.8 % EF(MOD-sp2): 66.6 % EF(sp4-el): 59.8 % SV(MOD-sp4): 61.9 ml SV(MOD-sp2): 76.2 ml SV(sp4-el): 63.9 ml LA A4 area: 12.3 cm2 LA dimension(2D): 2.9 cm RA A4 area: 11.5 cm2 Time Measurements MV dec time: 0.25 sec Doppler Measurements & Calculations MV E max farrukh: 67.3 cm/sec Lat Peak E' Farrukh: 12.2 cm/sec Med Peak E' Farrukh: 9.1 cm/sec MV A max farrukh: 80.3 cm/sec E/E' lat: 5.5 E/E' med: 7.4 MV E/A: 0.84 Ao V2 max: 124.1 cm/sec AI max farrukh: 316.1 cm/sec MV dec slope: 266.0 cm/sec2 Ao max P.2 mmHg AI max P.0 mmHg AI dec slope: 182.5 cm/sec2 AI P1/2t: 507.2 msec LV V1 max: 87.3 cm/sec PA V2 max: 78.1 cm/sec TR max farrukh: 237.7 cm/sec LV V1 max P.1 mmHg TR max P.6 mmHg ECHO/Echo Complete W/ Contrast Interpretation Summary Normal LV size. Left ventricular systolic function is normal. The estimated ejection fraction is 55 %. Stage 1 diastolic dysfunction. Contrast injection was performed. Ordering Physician: Chris Pineda Referring Physician: Bi Trujillo MD Performed By: Trina Lanier
== END | disposition home or self-care (01) ==
LOC: CVS 12:53
PROVIDERS: PCP Family Medicine; Visit Provider Nurse Practitioner Family
DX: I51.89 Other ill-defined heart diseases (principal)
CPT/HCPCS: 93306; Q9957; A4216; C8929

== ENCOUNTER → 2022-07-15 | Outpatient (CLI) | payer OTHER, MEDICARE, SELFPAY ==
[2022-07-15 13:00] LABS: PSA,Total - Annual Screen 1.72 ng/mL (0.00-4.00)
== END | disposition home or self-care (01) ==
PROVIDERS: PCP Family Medicine; Referring Provider Urology; Visit Provider Urology
DX: Z12.5 Encounter for screening for malignant neoplasm of prostate (principal)
CPT/HCPCS: 36415; 84153; G0103

== ENCOUNTER → 2022-10-11 | Outpatient (CLI) | payer MEDICARE, BC, SELFPAY ==
[2022-10-11 13:01] LABS: Absolute Neutrophil Count 4.7 X10^3/uL (2.0-7.7); Basophil% 1.2 % (0-1); Eosinophil# 0.21 X10^3/uL; Eosinophils% 2.6 % (0-5); Hematocrit 45.4 % (40-54); Hemoglobin 15.2 g/dL (13.0-16.5); Lymphocyte % 28.6 % (19-41); Mean Corp Hgb Conc 33.5 g/dL (32-36); Mean Corpuscular Hgb 32.2 pg (27.0-32.0); Mean Corpuscular Volume 96.2 fL (80-94); Mean Platelet Vol. 10.1 fl (6.2-12.0); Monocyte# 0.63 X10^3/uL; Monocyte% 7.8 % (0-10); NRBC Flagged by Analyzer 0 % (0-5); Neutrophil # 4.71 X10^3/uL (2.7-7.7); Neutrophil % 58.8 % (47-70); Platelet Count 249 K/mm3 (150-450); RBC Distribution Width CV 12.7 % (11.6-14.6); RBC Distribution Width SD 45.3 fl (35.1-43.9); Red Blood Count 4.72 M/mm3 (4.6-6.2)
[2022-10-11 13:44] LABS: Cholesterol 128 mg/dL (200); High Density Lipoprotein 51 mg/dL; Triglycerides 73 mg/dL; Very Low Density Lipoprotein 15 mg/dL (5-40)
[2022-10-11 13:49] LABS: ALB/GLOB Ratio 1.3 RATIO (0.9-2.4); AST(SGOT) 14 U/L (15-37); Alanine Aminotransfer ALT/SGPT 21 U/L (16-61); Alkaline Phosphatase 74 U/L (45-117); Anion Gap 6 (5-15); BUN 19 mg/dL (7-18); BUN/Creat Ratio 18.8 RATIO (10-20); Bilirubin, Direct 0.19 mg/dL (0.00-0.30); Calcium,Total 9.2 mg/dL (8.5-10.1); Chloride 105 mmol/L (98-107); Creatinine, Serum 1.01 mg/dL (0.70-1.30); EST Glomerular Filtration Rate 78 mL/min (>60); Est Glom Filt Rate - Afr Amer 94 mL/min (>60); Globulin 3.1 g/dL (2.2-4.2); Glucose 98 mg/dL (74-106); Potassium 4.5 mmol/L (3.5-5.1); Protein, Total 7.1 g/dL (6.4-8.2); Sodium Level 140 mmol/L (136-145); T4 Free Direct 0.88 ng/dL (0.76-1.46); Thyroid Stim Hormone (TSH) 2.28 uIU/mL (0.358-3.74)
[2022-10-14 13:08] LABS: ANTINUCLEAR ANTIBODIES DIRECT Negative (Negative)
== END | disposition home or self-care (01) ==
LOC: LAB 12:33
PROVIDERS: PCP Family Medicine; Referring Provider Nurse Practitioner Family; Visit Provider Nurse Practitioner Family
DX: R63.4 Abnormal weight loss (principal); E78.5 Hyperlipidemia, unspecified; Z95.5 Presence of coronary angioplasty implant and graft
CPT/HCPCS: 36415; 80053; 80061; 82248; 84439; 84443; 85025; 86038

== ENCOUNTER → 2022-11-26 | Outpatient (CLI) | payer MEDICARE, BC, SELFPAY ==
--- NOTE | 2022-11-26 12:35 | CT_ITS ---
EXAM: CT CHEST, LUNG CANCER SCREENING WITHOUT INTRAVENOUS CONTRAST CLINICAL INDICATION: nicotine dependence and ongoing use, and gt; 30 pkur TECHNIQUE: Helically acquired images were obtained of the chest without intravenous contrast using low dose (LDCT) lung cancer screening protocol. This CT exam was performed using one or more of the following dose reduction techniques: automated exposure control, adjustment of the mA and/or kV according to patient size, and/or use of iterative reconstruction technique. COMPARISON: 11/20/2021 FINDINGS: LUNGS AND PLEURAL SPACES: There is a calcified granuloma in the posterior right upper lobe which is stable. There is stable scarring in the lung apices. No mass. No pleural effusion or thickening. No pneumothorax. HEART: There are coronary artery calcifications present. Heart size is normal. No pericardial effusion. MEDIASTINUM: Unremarkable. No mediastinal or hilar adenopathy. Esophagus is unremarkable. No hiatal hernia. THYROID: Unremarkable. No thyroid lesions. BONES/JOINTS: Unremarkable. No suspicious lytic or blastic abnormality. VASCULATURE: See above. LYMPH NODES: Unremarkable. No enlarged lymph nodes. CT/Low Dose CT Lung Screening IMPRESSION: No acute abnormality. There is a stable calcified granuloma in the right upper lobe. There has been no change from the reference examination. Lung-RADS score: 1 - Recommend continued annual screening with a low-dose CT (LDCT) in 12 months. Electronically Signed: Geovanni Cordoba MD at 17:25 EDT ,
== END | disposition home or self-care (01) ==
LOC: CT 12:33
PROVIDERS: PCP Family Medicine; Referring Provider Family Medicine; Visit Provider Family Medicine
DX: Z12.2 Encounter for screening for malignant neoplasm of respiratory organs (principal); Z87.891 Personal history of nicotine dependence
CPT/HCPCS: 71271

== ENCOUNTER → 2023-01-21 | Outpatient (CLI) | payer MEDICARE, BC, SELFPAY ==
[2023-01-21 17:52] LABS: Absolute Lymphocyte Count 1.69 X10^3/uL (0.83-4.51); Absolute Neutrophil Count 5.1 X10^3/uL (2.0-7.7); Basophil# 0.06 X10^3/uL; Basophil% 0.8 % (0-1); Eosinophils% 2.6 % (0-5); Hematocrit 43.5 % (40-54); Hemoglobin 14.7 g/dL (13.0-16.5); Lymphocyte # 1.69 X10^3/ul (0.83-4.51); Lymphocyte % 21.9 % (19-41); Mean Corp Hgb Conc 33.8 g/dL (32-36); Mean Corpuscular Hgb 33.2 pg (27.0-32.0); Mean Corpuscular Volume 98.2 fL (80-94); Mean Platelet Vol. 10.5 fl (6.2-12.0); Monocyte# 0.66 X10^3/uL; Monocyte% 8.5 % (0-10); NRBC Flagged by Analyzer 0 % (0-5); Neutrophil # 5.09 X10^3/uL (2.7-7.7); Neutrophil % 65.8 % (47-70); Platelet Count 245 K/mm3 (150-450); RBC Distribution Width CV 13.2 % (11.6-14.6); RBC Distribution Width SD 47.8 fl (35.1-43.9); Red Blood Count 4.43 M/mm3 (4.6-6.2); White Blood Count 7.7 K/mm3 (4.4-11.0)
[2023-01-21 18:13] LABS: ALB/GLOB Ratio 1.2 RATIO (0.9-2.4); AST(SGOT) 18 U/L (15-37); Alanine Aminotransfer ALT/SGPT 26 U/L (16-61); Albumin, Serum 3.9 g/dL (3.2-5.0); Alkaline Phosphatase 69 U/L (45-117); Anion Gap 5 (5-15); BUN 19 mg/dL (7-18); BUN/Creat Ratio 15.8 RATIO (10-20); Calcium,Total 8.8 mg/dL (8.5-10.1); Chloride 104 mmol/L (98-107); EST Glomerular Filtration Rate 64 mL/min (>60); Est Glom Filt Rate - Afr Amer 77 mL/min (>60); Globulin 3.3 g/dL (2.2-4.2); Glucose 91 mg/dL (74-106); Magnesium 2.3 mg/dL (1.6-2.6); Phosphorus 2.9 mg/dL (2.5-4.9); Potassium 4.9 mmol/L (3.5-5.1); Protein, Total 7.2 g/dL (6.4-8.2); Sodium Level 139 mmol/L (136-145); Thyroid Stim Hormone (TSH) 2.18 uIU/mL (0.358-3.74)
== END | disposition home or self-care (01) ==
LOC: MFPLAB 14:52
PROVIDERS: PCP Family Medicine; Visit Provider Family Medicine
DX: R25.2 Cramp and spasm (principal); J44.9 Chronic obstructive pulmonary disease, unspecified
CPT/HCPCS: 36415; 80053; 83735; 84100; 84443; 85025

== ENCOUNTER → 2023-05-08 | Outpatient (CLI) | payer MEDICARE, BC, SELFPAY ==
--- NOTE | 2023-05-08 16:55 | RAD_ITS ---
EXAM: XR LEFT HIP WITH PELVIS WHEN PERFORMED, 2 OR 3 VIEWS CLINICAL INDICATION: LEFT HIP PAIN TECHNIQUE: Two or three views of the left hip with pelvis when performed. COMPARISON: Abdominal x-ray to 320. FINDINGS: BONES/JOINTS: Bilaterally there is a small bump along the superior lateral aspect of the femoral head neck junction that may cause cam type femoral acetabular impingement. No displaced fracture. No destructive or sclerotic lesions. Note that overlapping bowel shadows may however obscure fine detail. Sacroiliac joint is unremarkable. No widening of the pubic symphysis. The articular structures are unremarkable. SOFT TISSUES: Unremarkable. No soft tissue swelling or gas. RAD/HIP, UNI W/ Pelvis 2-3 Views IMPRESSION: Bilaterally there is a small bump along the superior lateral aspect of the femoral head neck junction that may cause cam type femoral acetabular impingement. Electronically Signed: Jer Chaves MD at 7:01 EST ,
== END | disposition home or self-care (01) ==
LOC: MTRAD 16:52
PROVIDERS: PCP Family Medicine; Referring Provider Family Medicine; Visit Provider Family Medicine
DX: M25.552 Pain in left hip (principal)
CPT/HCPCS: 73502

== ENCOUNTER → 2023-09-23 | Outpatient (CLI) | payer MEDICARE, BC, SELFPAY ==
[2023-09-23 12:06] LABS: Absolute Lymphocyte Count 1.91 X10^3/uL (0.83-4.51); Absolute Neutrophil Count 6.5 X10^3/uL (2.0-7.7); Basophil# 0.08 X10^3/uL; Basophil% 0.8 % (0-1); Eosinophil# 0.21 X10^3/uL; Eosinophils% 2.2 % (0-5); Hematocrit 44.3 % (40-54); Hemoglobin 15.1 g/dL (13.0-16.5); Lymphocyte # 1.91 X10^3/ul (0.83-4.51); Lymphocyte % 20.1 % (19-41); Mean Corp Hgb Conc 34.1 g/dL (32-36); Mean Corpuscular Hgb 32.9 pg (27.0-32.0); Mean Corpuscular Volume 96.5 fL (80-94); Mean Platelet Vol. 10.5 fl (6.2-12.0); Monocyte# 0.69 X10^3/uL; Monocyte% 7.3 % (0-10); NRBC Flagged by Analyzer 0 % (0-5); Neutrophil # 6.52 X10^3/uL (2.7-7.7); Neutrophil % 68.9 % (47-70); Platelet Count 268 K/mm3 (150-450); RBC Distribution Width SD 49.4 fl (35.1-43.9); Red Blood Count 4.59 M/mm3 (4.6-6.2); White Blood Count 9.5 K/mm3 (4.4-11.0)
[2023-09-23 12:55] LABS: ALB/GLOB Ratio 1.2 RATIO (0.9-2.4); AST(SGOT) 20 U/L (15-37); Alanine Aminotransfer ALT/SGPT 29 U/L (16-61); Alkaline Phosphatase 65 U/L (45-117); Anion Gap 1 (5-15); BUN 18 mg/dL (7-18); BUN/Creat Ratio 15.4 RATIO (10-20); Calcium,Total 9.2 mg/dL (8.5-10.1); Chloride 107 mmol/L (98-107); Cholesterol 138 mg/dL (200); Creatinine, Serum 1.17 mg/dL (0.70-1.30); EST Glomerular Filtration Rate 66 mL/min (>60); Est Glom Filt Rate - Afr Amer 79 mL/min (>60); Globulin 3.2 g/dL (2.2-4.2); Glucose 114 mg/dL (74-106); High Density Lipoprotein 59 mg/dL; Potassium 5.2 mmol/L (3.5-5.1); Protein, Total 7.2 g/dL (6.4-8.2); Sodium Level 138 mmol/L (136-145); Triglycerides 84 mg/dL; Very Low Density Lipoprotein 17 mg/dL (5-40)
[2023-09-23 13:26] LABS: Microalbumin,Random Urine 8.7 mg/L (NO RANGE EST.); Microalbumin:Creatinine Ratio 11.5 mg/g CRE (<30 mg/g CRE)
== END | disposition home or self-care (01) ==
LOC: MFPLAB 10:17
PROVIDERS: PCP Family Medicine; Visit Provider Family Medicine
DX: I10 Essential (primary) hypertension (principal); J44.89 Other specified chronic obstructive pulmonary disease
CPT/HCPCS: 36415; 80053; 80061; 82043; 82570; 85025

== ENCOUNTER → 2023-10-23 | Outpatient (CLI) | payer MEDICARE, BC, SELFPAY ==
[2023-10-23 14:29] LABS: PSA,Total - Annual Screen 2.43 ng/mL (0.00-4.00)
== END | disposition home or self-care (01) ==
PROVIDERS: PCP Family Medicine; Referring Provider Nurse Practitioner; Visit Provider Nurse Practitioner
DX: Z12.5 Encounter for screening for malignant neoplasm of prostate (principal); R30.0 Dysuria
CPT/HCPCS: 36415; 84153; 87086; 87088; G0103

== ENCOUNTER → 2024-02-27 | Outpatient (CLI) | payer MEDICARE, BC, SELFPAY ==
--- NOTE | 2024-02-27 08:28 | CT_ITS ---
STUDY: LOW DOSE CT LUNG CANCER SCREENING REASON FOR EXAM: Male, 68 years old. and gt; 30 pack years. ongoing use RADIATION DOSAGE (If Supplied By Facility): CTDIvol = ( 3.02 ) mGy, DLP = ( 120.41 ) mGycm TECHNIQUE: No contrast was administered. Low dose technique was utilized (average mAS-38 and kVp 120). 1.25 mm axial source images with a slice interval of 1.25-mm were reconstructed in lung windows. 2.5 mm axial source images with a slice interval of 2.5-mm were reconstructed in lung windows. 5.0 mm axial source images with a slice interval of 5.0-mm were reconstructed in soft tissue windows. COMPARISON: Comparison is made with prior study dated November 26, 2022. NODULES: No suspicious nodules seen. Calcified granuloma in the posterior right upper lobe. Emphysema: Mild emphysematous changes. Endobronchial lesion: Unremarkable Aorta: Atherosclerotic calcific plaques. CORONARY ARTERIES: Coronary artery calcification is seen. Heart: Unremarkable Pulmonary artery: Unremarkable Mediastinal nodes: Unremarkable Other chest and abdominal findings: CT/Low Dose CT Lung Screening IMPRESSION: Lung-RADS category 2 - Continue annual screening with LDCT in 12 months. IMPORTANT NOTES FOR USE: ACR Lung-RADS Version 1.1 Assessment Categories Release Date: 2018 Category: Coded 0-4 bases on nodule(s) with highest degree of suspicion. Negative screen is defined as categories 1 and 2; a positive screen is defined as categories 3 and 4. Category 3 and 4A nodules that are unchanged on interval CT should be coded as category 2, and individuals returned to screening in 12 months. Category 4X: Category 3 or 4 nodules with additional imaging findings that increase the suspicion of lung cancer, such as spiculation, GGN that doubles in size in 1 year, enlarged lymph notes, etc. Category Modifiers: S (significant finding unrelated to lung cancer) Electronically Signed: Jaret Yo MD at 10:35 EDT ,
== END | disposition home or self-care (01) ==
LOC: CT 08:27
PROVIDERS: PCP Family Medicine; Referring Provider Family Medicine; Visit Provider Family Medicine
DX: Z12.2 Encounter for screening for malignant neoplasm of respiratory organs (principal); F17.210 Nicotine dependence, cigarettes, uncomplicated
CPT/HCPCS: 71271

== ENCOUNTER → 2024-07-20 | Outpatient (CLI) | payer MEDICARE, BC, SELFPAY ==
[2024-07-20 17:58] LABS: Absolute Lymphocyte Count 2.06 X10^3/uL (0.83-4.51); Absolute Neutrophil Count 6.4 X10^3/uL (2.0-7.7); Basophil# 0.09 X10^3/uL; Basophil% 0.9 % (0-1); Eosinophil# 0.27 X10^3/uL; Eosinophils% 2.8 % (0-5); Hematocrit 46.5 % (40-54); Hemoglobin 15.5 g/dL (13.0-16.5); Lymphocyte # 2.06 X10^3/ul (0.83-4.51); Lymphocyte % 21.2 % (19-41); Mean Corp Hgb Conc 33.3 g/dL (32-36); Mean Corpuscular Hgb 32.2 pg (27.0-32.0); Mean Corpuscular Volume 96.5 fL (80-94); Mean Platelet Vol. 10.8 fl (6.2-12.0); Monocyte# 0.84 X10^3/uL; Monocyte% 8.7 % (0-10); NRBC Flagged by Analyzer 0 % (0-5); Neutrophil # 6.38 X10^3/uL (2.7-7.7); Neutrophil % 65.7 % (47-70); Platelet Count 239 K/mm3 (150-450); RBC Distribution Width CV 12.7 % (11.6-14.6); RBC Distribution Width SD 44.9 fl (35.1-43.9); Red Blood Count 4.82 M/mm3 (4.6-6.2); White Blood Count 9.7 K/mm3 (4.4-11.0)
[2024-07-20 18:48] LABS: ALB/GLOB Ratio 1.6 RATIO (0.9-2.4); AST(SGOT) 19 U/L (15-37); Alanine Aminotransfer ALT/SGPT 26 U/L (16-61); Albumin, Serum 4.6 g/dL (3.2-5.0); Alkaline Phosphatase 75 U/L (45-117); Anion Gap 8 (5-15); BUN 18 mg/dL (7-18); BUN/Creat Ratio 17.6 RATIO (10-20); Calcium,Total 9.4 mg/dL (8.5-10.1); Chloride 103 mmol/L (98-107); Creatinine, Serum 1.02 mg/dL (0.70-1.30); EST Glomerular Filtration Rate 77 mL/min (>60); Est Glom Filt Rate - Afr Amer 93 mL/min (>60); Globulin 2.9 g/dL (2.2-4.2); Glucose 90 mg/dL (74-106); Potassium 4.3 mmol/L (3.5-5.1); Protein, Total 7.5 g/dL (6.4-8.2); Sodium Level 138 mmol/L (136-145)
[2024-07-20 19:25] LABS: Microalbumin,Random Urine 5.2 mg/L (NO RANGE EST.)
== END | disposition home or self-care (01) ==
LOC: MFPLAB 14:15
PROVIDERS: PCP Family Medicine; Referring Provider Family Medicine; Visit Provider Family Medicine
DX: J44.89 Other specified chronic obstructive pulmonary disease (principal); I10 Essential (primary) hypertension; I73.9 Peripheral vascular disease, unspecified
CPT/HCPCS: 36415; 80053; 82043; 82570; 85025

== ENCOUNTER → 2025-02-22 | Outpatient (CLI) | payer MEDICARE, BC, SELFPAY ==
[2025-02-22 11:42] LABS: PSA,Total - Annual Screen 1.40 ng/mL (0.02-4.00)
== END | disposition home or self-care (01) ==
LOC: LAB 10:45
PROVIDERS: PCP Family Medicine; Referring Provider Urology; Visit Provider Urology
DX: Z12.5 Encounter for screening for malignant neoplasm of prostate (principal)
CPT/HCPCS: 36415; 84153; G0103

== ENCOUNTER → 2025-02-28 | Outpatient (CLI) | payer MEDICARE, BC, SELFPAY ==
--- NOTE | 2025-02-28 12:51 | CT_ITS ---
PROCEDURE: LOW DOSE CT LUNG SCREENING 02/28/2025 REASON FOR EXAM: TOBACCO ABUSUSE TECHNIQUE: Procedure Code: [id number] Modality: CT Procedure: LOW DOSE CT LUNG SCREENING Coronal and Sagittal reconstruction series were provided. One or more dose reduction techniques were used (e.g., Automated exposure control, adjustment of the mA and/or kV according to patient size, use of iterative reconstruction technique). REFERENCE LINK: [employer] Lung-RADS RADIATION DOSE SUMMARY: CTDlvol: 3.0 mGy DLP: 122.7 mGycm COMPARISON: 02/27/2024 FINDINGS: PULMONARY NODULES: (Only nodules >3mm are reported) Nodules described below are on series 3 unless otherwise specified. Pulmonary Nodules: No new suspicious pulmonary nodules. Calcified granuloma, stable. Hardware:Unremarkable Lymph Nodes:Unremarkable Heart and Vasculature:Normal heart size Coronary Artery Calcifications: Present Lungs and Airways: Mild emphysematous changes are present. Pleura:Unremarkable Upper Abdomen:Unremarkable Bones:Degenerative changes of the thoracic spine. CT/Low Dose CT Lung Screening IMPRESSION: No new suspicious pulmonary nodules. Coronary artery calcification (CAC) is is present Lung-RADS Category: 2 BENIGN (BASED ON IMAGING FEATURES OR INDOLENT BEHAVIOR). RECOMMEND 12-MONTH SCREENING LDCT. Other Significant Findings: Reading Location: [id number]
== END | disposition home or self-care (01) ==
LOC: CT 12:51
PROVIDERS: PCP Family Medicine
DX: Z12.2 Encounter for screening for malignant neoplasm of respiratory organs (principal); F17.210 Nicotine dependence, cigarettes, uncomplicated
CPT/HCPCS: 71271

== ENCOUNTER 2025-04-30 15:05 | Inpatient (IN) | payer MEDICARE, BC, SELFPAY ==
[2025-04-30] VITALS (7 sets, daily range): BP systolic 121–147; BP diastolic 58–84; PULSE 70–88; RESP 14–18; TEMP 36.3–37.1; O2SAT 96–100; BMI 22.4; BMI 21.9
--- NOTE | 2025-04-30 15:42 | EX.ED.GUMALE ---
HPI History of Present Illness Chief Complaint: Complaint Informant: patient and spouse/S.O. Narrative Narrative: 70-year-old male with history of coronary artery disease and ureterolithiasis presenting to the emergency room with a chief complaint of hematuria. Patient states that he follows with Dr. Valladares. He spoke with urology yesterday and advised him that he began to have bloody urine. He states that he has been drinking lots of fluids and at times it has been very hard for him to urinate and painful as he is pushing large clots out. He stopped his aspirin yesterday. He is not on other blood thinners. He denies any fevers. He states this has happened to him before due to kidney stones. He does note some left flank discomfort. He states that he is supposed to see Dr. Valladares on Friday but was advised he may need to come to the hospital and get a catheter. [facility] Medical History Essential (primary) hypertension Elevated blood pressure reading in office without diagnosis of hypertension Nicotine dependence GERD (gastroesophageal reflux disease) Hyperlipidemia COPD (chronic obstructive pulmonary disease) Atherosclerotic heart disease [place] coronary artery w/angina pectoris Home Medications ?Medication ?Instructions ?Recorded ?Last Taken ?Type acetaminophen 500 mg tablet 500 mg PO Q4H PRN PRN Pain #20 tabs 08/28/18 Unknown Rx nitroglycerin 0.4 mg sublingual 0.4 mg sublingual Q5-15M 04/16/19 Unknown History tablet tamsulosin 0.4 mg capsule 0.4 mg PO DAILY 10/19/19 Unknown History ascorbic acid (vitamin C) 1,000 mg 1 g PO DAILY 05/16/20 Unknown History tablet zinc acetate 50 mg (zinc) capsule 50 mg PO DAILY 05/16/20 Unknown History fluticasone propionate 50 2 spray intranasal DAILY 05/15/21 Unknown History mcg/actuation nasal spray,suspension ipratropium bromide 21 mcg (0.03 2 spray intranasal TID 11/27/21 Unknown History %) nasal spray calcium carbonate (Tums Ultra) 400 mg PO DAILY 05/16/22 Unknown History cholecalciferol (vitamin D3) 50 50 mcg PO DAILY 05/16/22 Unknown History mcg (2,000 unit) tablet omeprazole 40 mg capsule,delayed 40 mg PO DAILY 05/16/22 Unknown History release lisinopril 5 mg tablet 5 mg PO DAILY 05/21/22 05/22/22 History atorvastatin 40 mg tablet 40 mg PO QHS #90 tabs 10/01/23 Unknown Rx aspirin 81 mg tablet,delayed 81 mg PO DAILY 12/16/23 Unknown History release metoprolol succinate 25 mg 25 mg PO DAILY #90 tabs 09/21/24 Unknown Rx tablet,extended release 24 hr (Toprol XL) ranolazine 500 mg tablet,extended 500 mg PO BID #180 TABLETS 11/08/24 Unknown Rx release,12 hr vitamin B complex 1 tab PO DAILY 12/14/24 Unknown History Allergy/AdvReac Type Severity Reaction Status Date / Time No Known Allergies Allergy Verified 04/30/25 15:09 Family History Brother CVA (cerebral vascular accident) Diabetes Brother CVA (cerebral vascular accident) Diabetes Sister Diabetes Hypertension Son Hypertension Father , age 63 Myocardial infarction, Onset Age: 41 Surgical History History of coronary artery stent placement (03/04/19) History of left heart catheterization (05/22/22) Social History household members: spouse housing: house Smoking Status: Current every day smoker tobacco type: cigarettes Tobacco: How many years used: 45 quit status: considering quitting alcohol intake: never substance use type: does not use caffeine: Yes Type: coffee Number of servings: 4 ROS ROS ED Constitutional Constitutional ED: Denies chills, fever(s) or weight loss Eyes Eyes: Denies change in vision or diplopia ENT ENT ED: Denies ear pain, rhinorrhea or sore throat Cardiovascular Cardiovascular: Denies chest pain, orthopnea, palpitations or racing heartbeat Respiratory/Chest Respiratory/Chest: Denies cough, dyspnea or orthopnea Gastrointestinal Gastrointestinal: Denies abdominal pain, diarrhea, nausea or vomiting Genitourinary Genitourinary ED: Reports hematuria; Denies dysuria or urinary frequency Musculoskeletal Musculoskeletal: Reports back pain; Denies arthralgias or myalgias Integumentary Denies abscess or rash Neurologic Neurologic: Denies headache(s) or weakness Psychiatric Psychiatric: Denies anxiety, depression, suicidal ideation or suicidal thoughts Endocrine Endocrinology: Denies polydipsia, polyphagia or polyuria Allergic/Immunologic Allergic/Immunologic ED: Denies mouth swelling, tongue swelling or urticaria EXAM Physical Exam Const Vital Signs: 04/30/25 15:06 04/30/25 16:09 04/30/25 17:00 Temperature 97.8 F 98 F 98.3 F Temperature Source Temporal Oral Oral Pulse Rate 78 88 73 Respiratory Rate 16 16 18 Blood Pressure 147/84 H 128/70 H 140/72 H Blood Pressure Mean 105 89 94 Pulse Ox 98 99 96 Oxygen Delivery Method Room Air Room Air Room Air 04/30/25 18:00 04/30/25 18:00 04/30/25 19:00 Temperature 97.3 F L 98.1 F Temperature Source Temporal Oral Pulse Rate 70 71 81 Respiratory Rate 14 18 16 Blood Pressure 128/64 H 128/64 H 121/58 H Blood Pressure Mean 85 85 79 Pulse Ox 100 100 99 Oxygen Delivery Method Room Air Room Air Room Air Positive well nourished and well developed General Appearance ED: well developed HEENT Reports normocephalic, head/scalp atraumatic and moist mucous membranes Eyes PERRL and EOMs intact bilaterally Neck no lymphadenopathy, supple and no JVD Resp normal respiratory effort and clear to auscultation bilaterally Cardio regular rate, regular rhythm and no murmurs GI normal to inspection, nondistended, normoactive bowel sounds and non-tender Palpation: soft Back/Spine no CVA tenderness and normal ROM Extremity normal to inspection General Extremety ED: Negative for edema General Extremity: Negative for edema Neuro oriented x3 and CN's II-XII intact bilaterally Sensorium / Orientation: alert Motor Exam: strength 5/5 throughout Psych mental status grossly normal Mood & Affect: Negative for depressed or tearful Skin no rashes or lesions noted and no wounds MDM MDM MDM Narrative Medical decision making narrative: Differential diagnosis includes but not limited to ureterolithiasis hydronephrosis acute kidney injury anemia thrombocytopenia malignancy UTI AVM Basic blood work shows a white count 11.1. Creatinine 1.08. Urinalysis is red shows greater than 100 red cells 25-50 white cells 2+ bacteria 0-5 squamous cells 25 leukocyte esterase negative nitrates. This is sent for culture. Blood cultures obtained patient received Rocephin. CT abdomen pelvis was obtained read by radiology reviewed by myself. Patient appears to be passing a kidney stone. We irrigated the bladder to clear but it was grossly bloody after a liter of IV fluids. Do not see any obvious clots in the bag with about 800 cc in it. I spoke with Dr. Valladares with the patient's urologist. Were in place him on CBI and the plan will be admission. Patient and his are comfortable with this plan History & Record Review Discussion w/independent historian: Patient and Significant other Additional record(s) reviewed:: Prior outpatient record, Prior ED visit and Prior labs Lab Data Attestation: I reviewed the patient's lab results. Labs: Laboratory Results - last 24 hr 04/30/25 04/30/25 16:00 16:16 WBC 11.1 H RBC 4.39 L Hgb 14.4 Hct 41.4 MCV 94.3 H MCH 32.8 H MCHC 34.8 RDW Std Deviation 43.6 RDW Coeff of Vita 12.5 Plt Count 240 MPV 10.4 Immature Gran % (Auto) 0.500 Neut % (Auto) 68.2 Lymph % (Auto) 19.7 [place] % (Auto) 8.1 Eos % (Auto) 2.9 Baso % (Auto) 0.6 Absolute Neuts (auto) 7.6 Absolute Lymphs (auto) 2.18 Nucleated RBC % 0 Sodium 140 Potassium 4.2 Chloride 104 Carbon Dioxide 28.4 Anion Gap 8 BUN 22 H Creatinine 1.08 Estim Creat Clear Calc 72.05 Est GFR (MDRD) Non-Af 73 BUN/Creatinine Ratio 20.1 H Glucose 119 H Calcium 9.0 Urine Color ABRAHAN Urine Clarity Turbid Urine pH 7.0 Ur Specific [place] 1.015 Urine Protein 500 H Urine Glucose (UA) Normal Urine Ketones Negative Urine Occult Blood 250 H Urine Nitrite Negative Urine Bilirubin Negative Urine Urobilinogen Normal Ur Leukocyte Esterase 25 H Urine RBC > 100 SEEN Urine WBC 25-50 SEEN Ur Squamous Epith Cells 0-5 SEEN Urine Bacteria 2+ Urine Mucus RARE Radiography Diagnostic Testing: Clinical Impression(s) from Imaging Studies Abdomen/Pelvis CT 04/30/25 16:10 IMPRESSION: Radiodensity measuring approximately 7 mm possibly located within the bladder with an additional similar-appearing 9 mm calculus. Punctate left-sided nonobstructing renal calculi. Prostatomegaly. Correlate for malignancy. Other chronic findings as above including hepatomegaly. Reading [facility] Discussion w/another healthcare provider: [employer] [facility] (Dr. Valladares) Discharge Plan Dx/Rx/DC Orders Clinical Impression: Hematuria, UTI (urinary tract infection), Kidney stone Disposition Disposition: Acute Care Hospital [facility]
[2025-04-30 16:10] LABS: Hematocrit 41.4 % (40-54); Hemoglobin 14.4 g/dL (13.0-16.5); Immature Granulocytes Count 0.060 X10^3/uL (0.0-0.0); Mean Corp Hgb Conc 34.8 g/dL (32-36); Mean Corpuscular Volume 94.3 fL (80-94); Mean Platelet Vol. 10.4 fl (6.2-12.0); NRBC Flagged by Analyzer 0 % (0-5); Platelet Count 240 K/mm3 (150-450); RBC Distribution Width CV 12.5 % (11.6-14.6); RBC Distribution Width SD 43.6 fl (35.1-43.9); Red Blood Count 4.39 M/mm3 (4.6-6.2); White Blood Count 11.1 K/mm3 (4.4-11.0)
--- NOTE | 2025-04-30 16:10 | CT_ITS ---
PROCEDURE: ABDOMEN/PELVIS WITHOUT CONT 04/30/2025 REASON FOR EXAM: KIDNEY STONE HEMATURIA TECHNIQUE: Procedure Code: CTABDPEL Modality: CT Procedure: ABDOMEN/PELVIS WITHOUT CONT Noncontrast technique limits evaluation of the abdominal and pelvic viscera. Coronal and Sagittal reconstruction series were provided. One or more dose reduction techniques were used (e.g., Automated exposure control, adjustment of the mA and/or kV according to patient size, use of iterative reconstruction technique). RADIATION DOSE SUMMARY: CTDlvol: 7.63 mGy DLP: 423 mGycm COMPARISON: No CTs available. FINDINGS: Hepatomegaly measuring up to 22 cm in greatest dimension. Granulomatous disease of the spleen. Adrenals are normal. Vascular calcifications of the aorta without aneurysmal disease. Pancreas is poorly visualized. Normal appendix. No bowel obstruction. Prostatomegaly measuring up to approximately 5.5 cm. Radiodensity measuring approximately 7 mm possibly located within the bladder with an additional similar-appearing 9 mm calculus. Punctate left-sided nonobstructing renal calculi. Degenerative changes of the visualized spine. No free air. No lymphadenopathy. CT/Abdomen/Pelvis without Cont IMPRESSION: Radiodensity measuring approximately 7 mm possibly located within the bladder w ith an additional similar-appearing 9 mm calculus. Punctate left-sided nonobstructing renal calculi. Prostatomegaly. Correlate for malignancy. Other chronic findings as above including hepatomegaly. Reading Location: [facility]
--- OUTSIDE RECORDS SUMMARY | 2025-04-30 16:24 | XMS RPT_ITS | CCD ---
Author Organization [facility] Care Team Providers Care Grain Spouter Name Role Phone Carrillo Bernal Unavailable Unavailable Carrillo Bernal Unavailable Unavailable VIGESAA, BRINDA Robison Unavailable Unavailable TRUJILLO, MELVIN A Unavailable Unavailable VIGESAA, BRINDA S Unavailable Unavailable TRUJILLO, MELVIN A Unavailable Unavailable VIGESAA, BRINDA S Unavailable Unavailable TRUJILLO, MELVIN A Unavailable Unavailable VIGESAA, BRINDA S Unavailable Unavailable TRUJILLO, MELVIN A Unavailable Unavailable Trujillo, Melvin Charly Primary Care Provider LUIS ENRIQUE HOLLIS Attending Unavailmisbah e SILVIA, MELVIN PARKS Primary Care Unavailable LUIS ENRIQUE HOLLIS Admitting Unavailabl e TYSHAWN CARTWRIGHT Admitting Unavailable SILVIA, MELVIN CHARLY Primary Care Unavailable Trujillo, Melvin Charly Primary Care Provider Dr. Melvin Trujillo Primary Care Provider [phone] Elias Pimentel Emergency Provider Dr. Berenice Chavez Admit Provider Dr. Berenice Chavez Attending Provider Dr. Berenice Chavez Other Provider Dr. Harriet Osborne Other Provider Dr. Harriet Osborne Attending Provider Dr. Berenice Chavez Referring Provider Dr. Castro Osborne Other Provider Dr. Castro Osborne Attending Provider Dr. Melvin Trujillo Referring Provider Janak ROMANO, DENISE Chin Attending Provider Dr. Melvin Trujillo Primary Care Provider Dr. Melvin Trujillo Primary Care Provider Dr. Melvin Trujillo Referring Provider Wynne LYRIC WRITER, LYRIC WRITER-C [place] Attending Provider Dr. Keith Azevedo Attending Provider Roof LYRIC WRITER, LYRIC WRITER-C Chris Bradley Attending Provider Dr. Melvin Trujillo Primary Care Provider Dr. Melvin Trujillo Referring Provider Dr. Melvin Trujillo Primary Care Provider Dr. Keith Azevedo Attending Provider Roof LYRIC WRITER, LYRIC WRITER-C Chris Bradley Attending Provider Dr. Melvin Trujillo Referring Provider Dr. Vinayak Edmonds Attending Unavailable Dr. Melvin Trujillo Primary Care Unavailable Dr. Melvin Trujillo Referring Unavailable Dr. Vinayak Edmonds Admitting Unavailable Dr. Melvin Trujillo Primary Care Provider Edwin LYRIC WRITER, LYRIC WRITER-C Chris Bradley Attending Provider Melvin Trujillo MD Primary Care Provider Dr. Melvin Trujillo MD Primary Care Provider Dr. Melvin Trujillo MD Referring Provider Edwin LYRIC WRITER-CChris Attending Provider Dr. Melvin Trujillo MD Primary Care Physician Edwin LYRIC WRITER-C, Chris Bradley Attending Physician Blaine TABARES, Dr. Hilario Garcia Attending Physician Blaine TABARES, Dr. Hilario Garcia Referring Provider [phone] [facility] Attending Physician Alidaorrow LYRIC WRITER-CKade Referring Provider Melvin Trujillo Primary Care Unavailable Alidaorrow LYRIC WRITERKade Attending Unavailable [facility] K[facility] ROMANO Referring Unavailable Melvin Trujillo Primary Care Unavailable Melvin Trujillo Attending Unavailable Melvin Trujillo Referring Unavailable Melvin Trujillo Primary Care Unavailable Hilario Valladares Attending Unavailable Hilario Valladares Referring Unavailable Melvin Trujillo Primary Care Unavailable Melvin Trujillo Referring Unavailable Chris Pineda NP Attending Unavailable Medications Current Medications Medication Drug Class(es) Dates Sig (Normalized) Sig (Original) acetaminophen 500 mg oral tablet (15 sources) Start: 08-28-2018 take 1 tablet by mouth every four hours as needed for pain ascorbic acid 1000 mg oral tablet (15 sources) Vitamin C Start: 05-16-2020 take 1 g by mouth once daily Start: 05-16-2020 take 1 g by mouth once daily A scorbic Acid (Vitamin C) Active 1 GM PO DAILY May 16, 2020 1:00am aspirin 81 mg delayed release oral tablet (20 sources) Platelet Aggregation Inhibitor, Nonsteroidal Anti-inflammatory Drug Start: 12-16-2023 take 1 tablet by mouth once daily Start: 05-15-2021 End: 12-16-2023 take 1 tablet by mouth twice daily Aspirin 81 mg tablet,delayed release (DR/EC) Discontinued 81 mg PO TWICE A DAY May 15, 2021 2:29pm December 16, 2023 10:13am Start: 02-26-2019 End: 05-15-2021 take 2 tablets by mouth once daily Aspirin 81 mg tablet,delayed release (DR/EC) Discontinued 162 mg PO DAILY February 26, 2019 10:52am May 15, 2021 2:35pm Start: 02-26-2019 End: 05-15-2021 take 162 mg by mouth once daily Aspirin Discontinued 162 MG PO DAILY February 26, 2019 10:52am May 15, 2021 2:35pm Start: 08-26-2018 End: 02-26-2019 take 1 tablet by mouth once daily Aspirin 81 MG tablet,delayed release (DR/EC) Discontinued 81 mg PO DAILY August 26, 2018 12:00am February 26, 2019 10:53am 12 hr buPROPion hydrochloride 150 mg extended release oral tablet (2 sources) Aminoketone Start: 12-22-2018 take 1 tablet by mouth twice daily buPROPion (WELLBUTRIN SR) 150 MG 12 hr tablet Take 150 mg by mouth 2 (two) times a day . 1 12/22/2018 Active calcium carbonate 1000 mg chewable tablet (20 sources) Start: 11-27-2021 End: 05-16-2022 take 1 tablet by mouth once daily cholecalciferol 0.05 mg oral tablet (20 sources) Vitamin D Start: 05-16-2022 take 1 tablet by mouth once daily Start: 05-16-2020 End: 05-16-2022 take 1 capsule by mouth once daily Cholecalciferol (Vitamin D3) 125 mcg (5,000 unit) capsule Discontinued 125 ug PO DAILY May 16, 2020 1:00am May 16, 2022 12:25pm famotidine 40 mg oral tablet (2 sources) Histamine-2 Receptor Antagonist take 1 tablet by mouth once daily as needed famotidine (PEPCID) 40 MG tablet Take 40 mg by mouth daily as needed . 0 Active fluticasone propionate 0.05 mg/actuat metered dose nasal spray (15 sources) Corticosteroid Start: Start: 05-15-2021 Fluticasone Pr opionate Active 2 SPRAY INTRANASAL DAILY May 15, 2021 1:00am ipratropium bromide 0.021 mg /actuat metered dose nasal spray (15 sources) Anticholinergic Start: 11-27-2021 Start: 11-27-2021 take 1 spray(s) nasa l route three times daily Ipratropium [place] Active 2 SPRAY INTRANASAL THREE TIMES A DAY November 27, 2021 12:00am administer into each nostril Start: 12-23-2018 take 1-2 spray(s) na yara route every six hours as needed ipratropium (ATROVENT) 0.03 % nasal spray Instill 1-2 sprays into each nostril every 6 (six) hours as needed . 5 12/23/2018 Active multivitamin (THERAGRAN) per tablet (2 sources) take 1 tablet by mouth once daily multivitamin (THERAGRAN) per tablet Take 1 tablet by mouth daily . 0 Active nitroglycerin 0.4 mg sublingual tablet (17 sources) Nitrate Vasodilator Start: 03-02-20 omeprazole 40 mg delayed release oral capsule (20 sources) Proton Pump Inhibitor Start: 05-16-20 take 1 capsule by mouth once daily Start: 11-27-2021 End: 11-27-2021 take 1 capsule by mouth once daily Omeprazole 40 mg capsule,delayed release(DR/EC) Discontinued 40 mg PO DAILY November 27, 2021 10:58am November 27, 2021 11:02am Start: 07-27-2021 End: 11-27-2021 take 2 tablets by mouth once daily Omeprazole 40 mg capsule,delayed release(DR/EC) Discontinued 80 mg PO DAILY 0 0 July 27, 2021 1:19pm November 27, 2021 11:01am Increase current dose to 80mg; take two tablets, once daily. Start: 07-27-2021 End: 11-27-2021 take 2 tablets by mouth once daily Omeprazole Discontinued 80 MG PO DAILY 0 July 27, 2021 1:19pm November 27, 2021 11:01am Increase current dose to 80mg; take two tablets, once daily. Start: 10-19-2019 End: 07-27-2021 take 1 capsule by mouth once daily Omeprazole 40 mg capsule,delayed release(DR/EC) Discontinued 40 mg PO DAILY October 19, 2019 12:00am July 27, 2021 1:19pm tamsulosin hydrochloride 0.4 mg oral capsule (15 sources) alpha-Adrenergic Yanira Start: 10-19-2019 take 1 capsule by mouth once daily ubidecarenone (CO Q-10 ORAL) (2 sources) take 1 tablet by mouth once daily ubidecarenone (CO Q-10 ORAL) Take 1 tablet by mouth daily . 0 Active Vitamin B Complex (9 sources) Start: 05-16-2022 take 1 tablet by mouth once daily Vitamin B Complex Active 1 TABLET PO DAILY May 16, 2022 1:00am Start: 05-16-2022 take 1 tablet by mouth once da liseth Vitamin B Complex Active 1 TABLET PO DAILY May 16, 2022 12:00am Vitamin B Complex tablet (6 sources) Start: 12-14-2024 Start: 12-14-2024 Vitamin B Comp balwinder tablet Active 1 {tbl} PO DAILY December 14, 2024 11:02am Start: 12-16-2023 End: 12-14-2024 Vitamin B Complex tablet Dis continued 1 {tbl} PO DAILY as needed December 16, 2023 9:57am December 14, 2024 11:02am Start: 05-16-2022 End: 12-16-2023 Vitamin B Complex tablet Dis continued 1 {tbl} PO DAILY May 16, 2022 1:00am December 16, 2023 9:57am zinc acetate 50 mg oral caps ule (15 sources) Start: 05-16-2020 take 1 capsule by [facility] once daily Completed/Discontinued Medications Medication Drug Class(es) Dates Sig (Normalized) Sig (Original) atorvastatin 40 mg oral tablet (20 sources) HMG-CoA Reductase Inhibitor Start: 03-05-2019 End: 10-01-2023 take 1 tablet by mouth at bedtime Atorvastatin 40 mg tablet Discontinued 40 mg PO AT BEDTIME 90 3 August 20, 2022 4:21pm October 01, 2023 11:51am calcium carbonate 800 mg / famotidine 10 mg / magnesium hydroxide 165 mg chewable tablet (15 sources) Histamine-2 Receptor Antagonist Start: 08-26-2018 End: 02-26-2019 take 1 tablet by mouth once daily Famotidine-Ca Carb-Mag Hydrox 1 EACH tablet,chewable Discontinued 1 - 2 NMA PO DAILY August 26, 2018 12:00am February 26, 2019 9:34am Start: 08-26-2018 End: 02-26-2019 Famotidine-Ca Carb-Mag Browns x Discontinued 1 - 2 EACH PO DAILY August 26, 2018 12:00am February 26, 2019 9:34am cetirizine hydrochloride 10 mg oral tablet (1 source) Histamine-1 Receptor Antagonist End: 03-06-2019 take 1 tablet by mouth once daily cetirizine (ZYRTEC) 10 MG tablet Take 10 mg by mouth daily . 0 03/06/2019 Discontinued (Error) escitalopram 5 mg oral tablet (15 sources) Serotonin Reuptake Inhibitor Start: 04-16-2019 End: 05-15-2021 take 1 tablet by mouth once daily Escitalopram Oxalate 5 mg tablet Discontinued 5 mg PO DAILY April 16, 2019 1:00am May 15, 2021 2:35pm ibuprofen 600 mg oral tablet (15 sources) Nonsteroidal Anti-inflammatory Drug Start: 08-28-2018 End: 02-26-2019 take 1 tablet by mouth every six hours as needed for pain Ibuprofen 600 MG tablet Discontinued 600 mg PO EVERY 6 HOURS NEEDED as needed for Pain August 28, 2018 4:18pm February 26, 2019 9:34am 24 hr isosorbide mononitrate 30 mg extended release oral tablet (20 sources) Nitrate Vasodilator Start: 03-08-2019 End: 10-29-2019 take 1 tablet by mouth once daily, then take 1 tablet by mouth every twenty-four hours Isosorbide Mononitrate 30 mg tablet extended release 24 hr Discontinued 30 mg PO DAILY 90 3 March 30, 2019 2:54pm October 19, 2019 10:28am lansoprazole 30 mg delayed release oral capsule (20 sources) Proton Pump Inhibitor Start: 11-27-2021 End: 05-16-2022 take 1 capsule by mouth once daily Lansoprazole 30 mg capsule,delayed release(DR/EC) Discontinued 30 mg PO DAILY November 27, 2021 12:00am May 16, 2022 12:24pm Start: 02-26-2019 End: 10-19-2019 take 1 capsule by mouth once daily Lansoprazole 30 mg capsule,delayed release(DR/EC) Discontinued 30 mg PO DAILY 60 0 February 26, 2019 12:00am October 19, 2019 10:27am lisinopril 5 mg oral tablet (20 sources) Angiotensin Converting Enzyme Inhibitor Start: 10-29-2019 End: 05-21-2022 take 1 tablet by mouth once daily Lisinopril 5 mg tablet Discontinued 0 .ROUTE .COMPLEX 90 3 December 27, 2021 8:44am May 21, 2022 9:06am TAKE 1 TABLET BY MOUTH EVERY DAY 24 hr metoprolol succinate 25 mg extended release oral tablet (20 sources) beta-Adrenergic Yanira Start: 05-16-2022 End: 09-21-2024 take 1 tablet by mouth once daily Metoprolol Succinate (Toprol Xl) 25 mg tablet extended release 24 hr Discontinued 25 mg PO DAILY 90 3 August 20, 2022 4:21pm December 16, 2023 9:58am Blgwripd-Uiz-Vdjtk -Vit K-Lycop (One-A-Day Men's Multivitamin) 400-20-300 mcg tablet (13 sources) Start: 11-27-2021 End: 12-14-2024 Mmnbpyuq-Pai-Qlslc- Vit K-Lycop (One-A-Day Men's Multivitamin) 400-20-300 mcg tablet Discontinued 1 {tbl} PO DAILY November 27, 2021 12:00am December 14, 2024 11:02am Start: 11-27-2021 take 1 tablet by elizabeth once daily Bykgjlai-Kep-Cygvn-Vit K-Lycop (One-A-Da y Men's Multivitamin) 400-20-300 mcg tablet Active 1 TABLET PO DAILY November 27, 2021 12:00am Start: 11-27-2021 take 1 tablet by elizabeth th once daily Xmiqfwte-Quy-Whzwj-Vit K-Lycop (-A Men's Multivitamin) 400-20-300 mcg tablet Active 1 TABLET PO DAILY November 26, 2021 11:00pm Start: 11-27-2021 take 1 tablet by elizabeth th once Nfzkqrxe-Cfe-Gtxgb-Vit K-Lycop (-A Men's Multivitamin) 400-20-300 mcg tablet Active TABLET PO November 27, 2021 12:00am pitavastatin calcium 4 mg oral tablet (16 sources) HMG-CoA Reductase Inhibitor Start: 12-27-2018 End: 03-06-2019 take 1 tablet by mouth once daily Pitavastatin Calcium (Livalo) 4 mg tablet Discontinued 4 mg PO DAILY February 26, 2019 12:00am February 26, 2019 10:52am 12 hr ranolazine 500 mg extended release oral tablet (20 sources) Anti-anginal Start: 05-22-2022 End: 11-08-2024 take 1 tablet by mouth twice daily Ranolazine 500 mg tablet extended release 12 hr Discontinued 500 mg PO TWICE A DAY 180 3 November 08, 2024 3:39pm November 08, 2024 5:19pm ticagrelor 90 mg oral tablet (20 sources) Start: 03-05-2019 End: 12-16-2023 take 1 tablet by mouth twice daily Ticagrelor 90 mg tablet Discontinued 90 mg PO TWICE A DAY 180 3 August 20, 2022 4:21pm December 16, 2023 10:12am ubidecarenone 200 mg oral capsule (15 sources) Start: 05-15-2021 End: 12-14-2024 Coenzyme Q10 (Co Q-10) 200 mg capsule Discontinued 200 mg PO DAILY May 15, 2021 1:00am December 14, 2024 11:01am 7 actuat umeclidinium 0.0625 mg/actuat / vilanterol 0.025 mg/actuat dry powder inhaler (20 sources) Anticholinergic, beta2-Adrenergic Agonist Start: 02-26-2019 End: 02-26-2019 Umeclidinium-Vilant johnny (Anoro Ellipta) 62.5-25 mcg/actuation blister with device Discontinued 1 NMA INHALATION Q24H February 26, 2019 12:00am February 26, 2019 10:53am Start: 02-26-2019 End: 02-26-2019 Umeclidinium-Vilanterol (Ano ro Ellipta) 62.5-25 mcg/actuation blister with device Discontinued 1 INH INHALATION Q24H February 26, 2019 12:00am February 26, 2019 10:53am Start: 08-26-2018 End: 02-26-2019 take 1 dose by inhalation once daily Umeclidinium-Vilanterol 1 EACH blister with device Discontinued 1 NMA IH DAILY August 26, 2018 12:00am February 26, 2019 9:34am Start: 08-26-2018 End: 02-26-2019 take 1 puff(s) by inhalation once daily Umeclidinium-Vilanterol Discontinued 1 PUFF IH DAILY August 26, 2018 12:00am February 26, 2019 9:34am varenicline 0.5 mg oral tablet (15 sources) Partial Cholinergic Nicotinic Agonist Start: 10-19-2019 End: 05-15-2021 Varenicline Tartrate (Chantix) 0.5 mg tablet Discontinued 0.5 mg PO DAILY October 19, 2019 12:00am May 15, 2021 2:37pm administer on days 1, 2, and 3 of therapy Problems Active Problems Problem Classification Problem Date Documented Date Episodic/Chronic Chronic obstructive pulmonary disease and bronchiectasis (2 sources) Chronic obstructive pulmonary disease, unspecified; Translations: [Chronic obstructive lung disease] Onset: 11-06-2022 11-14-2022 Chronic Chronic obstructive pulmonary disease and bronchiectasis (1 source) Chronic obstructive pulmonary disease and bronchiectasis; Translations: [Other specified chronic obstructive pulmonary disease] Onset: 08-05-2024 Coronary atherosclerosis and other heart disease (20 sources) Atherosclerotic heart disease of [place] coronary artery without angina pectoris; Translations: [Coronary atherosclerosis] Onset: 05-30-2017 Chronic Disorders of lipid metabolism (20 sources) Other hyperlipidemia; Translations: [Hyperlipidemia] Onset: 05-30-2017 Chronic Essential hypertension (20 sources) Essential (primary) hypertension; Translations: [Essential hypertension] Onset: 05-30-2017 Chronic Hyperplasia of prostate (2 sources) Benign prostatic hyperplasia without lower urinary tract symptoms; Translations: [Benign prostatic hyperplasia] Onset: 11-06-2022 11-14-2022 Chronic Malaise and fatigue (20 sources) Fatigue; Translations: [Other fatigue] Episodic Nonspecific chest pain (20 sources) Other chest pain; Translations: [Chest pain] Onset: 05-30-2017 Episodic Nutritional deficiencies (1 source) Vitamin D deficiency, unspecified; Translations: [Vitamin D deficiency, unspecified] Onset: 05-30-2017 Chronic Other and unspecified benign neoplasm (1 source) Polyp of colon; Translations: [Polyp of colon] Onset: 11-06-2022 Episodic Other and unspecified benign neoplasm (1 source) Polyp of colon; Translations: [Polyp of colon] 11-14-2022 Episodic Other circulatory disease (15 sources) Elevated blood-pressure reading without diagnosis of hypertension; Translations: [Elevated blood-pressure reading, without diagnosis of hypertension] 05-16-2020 Episodic Other lower respiratory disease (11 sources) Dyspnea; Translations: [Shortness of breath] 05-16-2022 Episodic Other nervous system disorders (15 sources) Impaired cognition; Translations: [Other symptoms and signs involving cognitive functions and awareness] 08-24-2021 Episodic Other screening for suspected conditions (not mental disorders or infectious disease) (7 sources) Encounter for screening for malignant neoplasm of colon; Translations: [Patient encounter status] Onset: 11-06-2022 Episodic Residual codes; unclassified (1 source) Obstructive sleep apnea (adult) (pediatric); Translations: [Obstructive sleep apnea (adult)(pediatric)] Chronic Spondylosis; intervertebral disc disorders; other back problems (15 sources) Neck pain; Translations: [Cervicalgia] 08-24-2021 Episodic Substance-related disorders (18 sources) Nicotine dependence; Translations: [Nicotine dependence, unspecified, uncomplicated] Chronic Urinary tract infections (1 source) Acute cystitis with hematuria; Translations: [Acute cystitis with hematuria] Onset: 08-07-2018 Episodic Past or Other Problems Problem Classification Problem Date Documented Da te Episodic/Chronic Coronary atherosclerosis and other heart disease (13 sources) Presence of coronary angioplasty implant and graft; Translations: [Percutaneous transluminal coronary angioplasty status] Onset: 03-04-2019 Episodic Other lower respiratory disease (3 sources) Shortness of breath; Translations: [Shortness of breath] Onset: 05-30-2017 Episodic Results Test Name Value Interpretation Reference Range Facility Low Dose CT Lung Screeningon 02-28-[address] Lung Screening [facility] Imaging Services [address] [place] [address] Lung Screening MR#: [id number] Acct: [id number] Name: JARON MIRELES Rep #: [id number] : 1955 M 69 From: Blaine Loja MD PCP: Dr. Melvin Trujillo MD Status: REG CLI Study: Low Dose CT Lung Screening Date of Exam: 02/28 Exam# [id number] Ordering Dr: Kade Novoa NP LYRIC WRITER -C PROCEDURE: LOW DOSE CT LUNG SCREENING 02/28/2025 REASON FOR EXAM: TOBACCO ABUSUSE TECHNIQUE: Procedure Code: [id number] Modality: CT Procedure: LOW DOSE CT LUNG SCREENING Coronal and Sagittal reconstruction series were provided. One or more dose reduction techniques were used (e.g., Automated exposure control, adjustment of the mA and/or kV according to patient size, use of iterative reconstruction technique). REFERENCE LINK: [id number] Lung-RADS RADIATION DOSE SUMMARY: CTDlvol: 3.0 mGy DLP: 122.7 mGycm COMPARISON: 02/27/2024 FINDINGS: PULMONARY NODULES: (Only nodules >3mm are reported) Nodules described below are on series 3 unless otherwise specified. Pulmonary Nodules: No new suspicious pulmonary nodules. Calcified granuloma, stable. Hardware:Unremarkable Lymph Nodes:Unremarkable Heart and Vasculature:Normal heart size Coronary Artery Calcifications: Present Lungs and Airways: Mild emphysematous changes are present. Pleura:Unremarkable Upper Abdomen:Unremarkable Bones:Degenerative changes of the thoracic spine. CT/Low Dose CT Lung Screening IMPRESSION: No new suspicious pulmonary nodules. Coronary artery calcification (CAC) is is present Lung-RADS Category: 2 BENIGN (BASED ON IMAGING FEATURES OR INDOLENT BEHAVIOR). RECOMMEND 12-MONTH SCREENING LDCT. Other Significant Findings: Reading Location: [facility] CC: Kade ROMANO NP-Alondra Irwinorrmandy; Dr. Melvin Trujillo MD Hide Spreader: Signed Normal [facility] PSA,Total - Annual Screenon 02-22-2025 PSA,TOT SCREEN 1.40 ng/mL Normal 0.02-4.00 [facility] Comment on above: Result Comment: This test was performed using the [employer] tPSA method. Measured values of a patient??sample can vary depending on the testing procedure used. PSA values determined on patient samples by different testing procedures cannot be used interchangeably. If there is a change in PSA assays while monitoring therapy, sequential testing should be performed to confirm baseline values. Performed By: #### L [id number] #### [facility] [address] [place], [address] Cardiology Visit Reporton Cardiology Visit Report [facility] [address] [place] [address] OFFICE VISIT Date of Service: 12/14/24 MR#: [id number] Acct: [id number] Name: JARON MIRELES Rep #: [id number] : 1955 Provider: DENISE sifuentes Age/Sex: 69/M Location: [facility] Status: Signed HPI HPI History of Present Illness Details: This is a 69-year-old gentleman who presents here today for a cardiovascular outpatient follow-up. He has coronary artery disease with stenting to his LAD and circumflex on March 04, 2019. He also has a history of hyperlipidemia and tobacco abuse. He underwent repeat cardiac catheterization March of the same year and his stents were noted to be patent with preserved ejection fraction and no wall motion abnormalities noted. He states he was having chest discomfort and indigestion and presented to the emergency room in 07/2021 and underwent a cardiac catheterization which demonstrated 40% stenosis in his Circumflex OM 2, and 50 to 60% stenosis in his distal RCA. He under repeat catheterization in May 2022 that showed moderated RCA disease. He denies chest, arm, jaw, or neck discomfort. He denies palpitations. He denies bilateral lower extremity edema. He denies claudication. He denies shortness of breath with activity, shortness of breath at rest, orthopnea, or PND. He denies chronic cough. He denies significant, sudden weight gain. He denies lightheadedness, dizziness, near-syncope, or syncope. He denies blood in urine, blood in stool, or epistaxis. He denies fever with chills. He denies myalgia. He denies fatigue. His exercise level has remained stable, but acknowledges feeling unsteady at times. Intake Vital Signs 12/16/23 09:54 12/14/24 10:55 Height 6 ft 3 in 6 ft 3 in Weight: 177 lb 179 lb BMI 22.1 22.4 BP 131/77 H 124/76 H Blood Pressure Location Lt brachial Lt brachial Position Sitting Sitting Respiration 16 16 Pulse 68 71 Pulse Source Monitor NIBP Intake Visit Reasons: 1 Y FU Cash Applications Coordinator Required: No Is patient in pain?: No Allergies No Known Allergies Allergy (Verified 12/14/24 11:00) Medications ???Medication ???Instructions ???Recorded ???Confirmed ???Type acetaminophen 500 mg tablet 500 mg PO Q4H PRN PRN Pain #20 tab s 08/28/18 12/14/24 Rx nitroglycerin 0.4 mg sublingual 0.4 mg sublingual Q5-15M 04/16/19 12/14/24 History tablet tamsulosin 0.4 mg capsule 0.4 mg PO DAILY 10/19/19 12/14/24 History ascorbic acid (vitamin C) 1,000 mg 1 g PO DAILY 05/16/20 12/14/24 H istory tablet zinc acetate 50 mg (zinc) capsule 50 mg PO DAILY 05/16/20 12/14/24 History fluticasone propionate 50 2 spray intranasal DAILY 05/15/21 12/14/24 History mcg/actuation nasal spray,suspension ipratropium bromide 21 mcg (0.03 2 spray intranasal TID 11/27/21 History %) nasal spray calcium carbonate (Tums Ultra) 400 mg PO DAILY 05/16/22 12/14/24 History cholecalciferol (vitamin D3) 50 50 mcg PO DAILY 05/16/22 12/14/24 History mcg (2,000 unit) tablet omeprazole 40 mg capsule,delayed 40 mg PO DAILY 05/16/22 12/14/24 H istory release lisinopril 5 mg tablet 5 mg PO DAILY 05/21/22 12/14/24 Hi story atorvastatin 40 mg tablet 40 mg PO QHS #90 tabs 10/01/2301/31 Rx aspirin 81 mg tablet,delayed 81 mg PO DAILY 12/16/23 12/14/24 H istory release metoprolol succinate 25 mg 25 mg PO DAILY #90 tabs 09/21/24 0 12/14/24 Rx tablet,extended release 24 hr (Toprol XL) ranolazine 500 mg tablet,extended 500 mg PO BID #180 TABLETS 12/14/24 Rx release,12 hr vitamin B complex 1 tab PO DAILY 12/14/24 12/14/24 H istory Ejection fraction %: 55 Have you fallen in the past year?: Yes (Off of a ladder) [facility] Medical History Essential (primary) hypertension Elevated blood pressure reading in office without diagnosis of hypertension Nicotine dependence GERD (gastroesophageal reflux disease) Hyperlipidemia COPD (chronic obstructive pulmonary disease) 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 pectoris Surgical History History of coronary artery stent placement (03/04/19) History of left heart catheterization (05/22/22) Family History Brother CVA (cerebral vascular accident) Diabetes Brother CVA (cerebral vascular accident) Diabetes Sister Diabetes Hypertension Son Hypertension Father , age 63 Myocardial infarction, Onset Age: 41 Social History Smoking Status: Current every day smoker tobacco type: cigarettes Tobacco: How many years used: 45 quit status: considering quitting alcohol intake: never substanc (more content not included)... Normal [facility] CBC W/Diff, Automatedon 07-10 Absolute Lymph 2.06 X10 3/uL Normal 0.83-4.51 [facility] Comment on above: Order Comment: Order Date: 07/20/24 Order Info: 0184-1 - CBCD Performed By: #### L 500.4050, L502.0250, L100.0100 #### [facility] [address] [place], [address] Absolute Neut 6.4 X10 3/uL Normal 2.0-7.7 [facility] Comment on above: Order Comment: Order Date: 07/20/24 Order Info: 0184-1 - CBCD Performed By: #### L 500.4050, L502.0250, L100.0100 #### [facility] [address] [place], [address] Basophils/100 WBC (Bld) 0.9 % Normal 0-1 [facility] Comment on above: Order Comment: Order Date: 07/20/24 Order Info: 0184-1 - CBCD Performed By: #### L 500.4050, L502.0250, L100.0100 #### [facility] [address] [place], [address] Eosinophils/100 WBC (Bld) 2.8 % Normal 0-5 [facility] Comment on above: Order Comment: Order Date: 07/20/24 Order Info: 0184-1 - CBCD Performed By: #### L 500.4050, L502.0250, L100.0100 #### [facility] [address] [place], [address] Erythrocyte distribution width (RBC) [Ratio] 12.7 % Normal 11.6-14.6 [facility] Comment on above: Order Comment: Order Date: 07/20/24 Order Info: 0184-1 - CBCD Performed By: #### L 500.4050, L502.0250, L100.0100 #### [facility] [address] [place], [address] Hematocrit (Bld) [Volume fraction] 46.5 % Normal 40-54 [facility] Comment on above: Order Comment: Order Date: 07/20/24 Order Info: 0184-1 - CBCD Performed By: #### L 500.4050, L502.0250, L100.0100 #### [facility] [address] [place], [address] Hemoglobin (Bld) [Mass/Vol] 15.5 g/dL Normal 13.0-16.5 [facility] Comment on above: Order Comment: Order Date: 07/20/24 Order Info: 0184- - CBCD Performed By: #### L 500.4050, L502.0250, L100.0100 #### [facility] [address] [place], [address] IG% 0.700 Normal 0.0-0.9 [facility] Comment on above: Order Comment: Order Date: 07/20/24 Order Info: 018- - CBCD Result Comment: IG% - Immature Granulocytes (promyelocytes, myelocytes and metamyelocytes) > 1% indicates that a LEFT SHIFT is Present. Performed By: #### L 500.4050, L502.0250, L100.0100 #### [facility] [address] [place], [address] Lymphocytes/100 WBC (Bld) 21.2 % Normal 19-41 [facility] Comment on above: Order Comment: Order Date: 07/20/24 Order Info: 018- - CBCD Performed By: #### L 500.4050, L502.0250, L100.0100 #### [facility] [address] [place], [address] MCH (RBC) [Entitic mass] 32.2 pg High 27.0-32.0 [facility] Comment on above: Order Comment: Order Date: 07/20/24 Order Info: 0184- - CBCD Performed By: #### L 500.4050, L502.0250, L100.0100 #### [facility] [address] [place], [address] MCHC (RBC) [Mass/Vol] 33.3 g/dL Normal 32-36 [facility] Comment on above: Order Comment: Order Date: 07/20/24 Order Info: 0184- - CBCD Performed By: #### L 500.4050, L502.0250, L100.0100 #### [facility] [address] [place], [address] MCV (RBC) [Entitic vol] 96.5 fL High 80-94 [facility] Comment on above: Order Comment: Order Date: 07/20/24 Order Info: 0184-1 - CBCD Performed By: #### L 500.4050, L502.0250, L100.0100 #### [facility] [address] [place], [address] Monocytes/100 WBC (Bld) 8.7 % Normal 0-10 [facility] Comment on above: Order Comment: Order Date: 07/20/24 Order Info: 0184-1 - CBCD Performed By: #### L 500.4050, L502.0250, L100.0100 #### [facility] [address] [place], [address] Neutrophils/100 WBC (Bld) 65.7 % Normal 47-70 [facility] Comment on above: Order Comment: Order Date: 07/20/24 Order Info: 0184-1 - CBCD Performed By: #### L 500.4050, L502.0250, L100.0100 #### [facility] [address] [place], [address] Nucleated RBC (Bld) [#/Vol] 0 10*3/uL Normal 0-5 [facility] Comment on above: Order Comment: Order Date: 07/20/24 Order Info: 0184-1 - CBCD Performed By: #### L 500.4050, L502.0250, L100.0100 #### [facility] [address] [place], [address] Platelet mean volume (Bld) [Entitic vol] 10.8 fL Normal 6.2-12.0 [facility] Comment on above: Order Comment: Order Date: 07/20/24 Order Info: 0184-1 - CBCD Performed By: #### L 500.4050, L502.0250, L100.0100 #### [facility] [address] [place], [address] Platelets (Bld) [#/Vol] 239 10*3/uL Normal 150-450 [facility] Comment on above: Order Comment: Order Date: 07/20/24 Order Info: 0184-1 - CBCD Performed By: #### L 500.4050, L502.0250, L100.0100 #### [facility] [address] [place], [address] RBC (Bld) [#/Vol] 4.82 10*6/uL Normal 4.6-6.2 [facility] Comment on above: Order Comment: Order Date: 07/20/24 Order Info: 0184- - CBCD Performed By: #### L 500.4050, L502.0250, L100.0100 #### [facility] [address] [place], [address] RDW SD 44.9 fl High 35.1-43.9 [facility] Comment on above: Order Comment: Order Date: 07/20/24 Order Info: 0184- - CBCD Performed By: #### L 500.4050, L502.0250, L100.0100 #### [facility] [address] [place], [address] WBC (Bld) [#/Vol] 9.7 10*3/uL Normal 4.4-11.0 [facility] Comment on above: Order Comment: Order Date: 07/20/24 Order Info: 0184-1 - CBCD Performed By: #### L 500.4050, L502.0250, L100.0100 #### [facility] [address] [place], [address] Comprehensive Metabolic Prof ilon 07-20-2024 Albumin [Mass/Vol] 4.6 g/dL Normal 3.2-5.0 [facility] Comment on above: Order Comment: Order Date: 07/20/24 Order Info: 0786-1 - CMP Performed By: #### L 500.4050, L502.0250, L100.0100 #### [facility] [address] [place], [address] Albumin/Globulin [Mass ratio] 1.6 {ratio} Normal 0.9-2.4 [facility] Comment on above: Order Comment: Order Date: 07/20/24 Order Info: 0786-1 - CMP Performed By: #### L 500.4050, L502.0250, L100.0100 #### [facility] [address] [place], [address] ALK P 75 U/L Normal 45-117 [facility] Comment on above: Order Comment: Order Date: 07/20/24 Order Info: 0786-1 - CMP Performed By: #### L 500.4050, L502.0250, L100.0100 #### [facility] [address] [place], [address] ALT [Catalytic activity/Vol] 26 U/L Normal 16-61 [facility] Comment on above: Order Comment: Order Date: 07/20/24 Order Info: 0786-1 - CMP Performed By: #### L 500.4050, L502.0250, L100.0100 #### [facility] [address] [place], [address] AST [Catalytic activity/Vol] 19 U/L Normal 15-37 [facility] Comment on above: Order Comment: Order Date: 07/20/24 Order Info: 0786-1 - CMP Performed By: #### L 500.4050, L502.0250, L100.0100 #### [facility] [address] [place], [address] Bilirubin [Mass/Vol] 0.50 mg/dL Normal 0.20-1.00 [facility] Comment on above: Order Comment: Order Date: 07/20/24 Order Info: 0786-1 - CMP Result Comment: For patients on eltrombopag therapy, use of Dimension [place] TBIL is not recommended. Performed By: #### L 500.4050, L502.0250, L100.0100 #### [facility] [address] [place], [address] BUN/CRE 17.6 RATIO Normal 10-20 [facility] Comment on above: Order Comment: Order Date: 07/20/24 Order Info: 0786-1 - CMP Performed By: #### L 500.4050, L502.0250, L100.0100 #### [facility] [address] [place], [address] CA,Total 9.4 mg/dL Normal 8.5-10.1 [facility] Comment on above: Order Comment: Order Date: 07/20/24 Order Info: 0786-1 - CMP Performed By: #### L 500.4050, L502.0250, L100.0100 #### [facility] [address] [place], [address] Chloride [Moles/Vol] 103 mmol/L Normal 98-107 [facility] Comment on above: Order Comment: Order Date: 07/20/24 Order Info: 0786-1 - CMP Performed By: #### L 500.4050, L502.0250, L100.0100 #### [facility] [address] [place], [address] CO2 [Moles/Vol] 28.0 mmol/L Normal 21.0-32.0 [facility] Comment on above: Order Comment: Order Date: 07/20/24 Order Info: 0786-1 - CMP Performed By: #### L 500.4050, L502.0250, L100.0100 #### [facility] [address] [place], [address] Creatinine [Mass/Vol] 1.02 mg/dL Normal 0.70-1.30 [facility] Comment on above: Order Comment: Order Date: 07/20/24 Order Info: 0786-1 - CMP Result Comment: The validity of the calculated GFR GFRAA in patients over 70 years has not been determined. Clinical correlation is essential. Performed By: #### L 500.4050, L502.0250, L100.0100 #### [facility] [address] [place], [address] EST GFR - AA 93 mL/min Normal >60 [facility] Comment on above: Order Comment: Order Date: 07/20/24 Order Info: 0786-1 - CMP Result Comment: Afri can [place] GFR Calc Performed By: #### L 500.4050, L502.0250, L100.0100 #### [facility] [address] [place], [address] GAP 8 Normal 5-15 [facility] Comment on above: Order Comment: Order Date: 07/20/24 Order Info: 0786-1 - CMP Performed By: #### L 500.4050, L502.0250, L100.0100 #### [facility] [address] [place], [address] GFR/1.73 sq M.predicted among non-blacks MDRD (S/P/Bld) [Vol rate/Area] 77 mL/min/{1.73_m2} Normal >60 [facility] Comment on above: Order Comment: Order Date: 07/20/24 Order Info: 0786-1 - CMP Result Comment: Non- GFR Calc Performed By: #### L 500.4050, L502.0250, L100.0100 #### [facility] [address] [place], [address] Globulin (S) [Mass/Vol] 2.9 g/dL Normal 2.2-4.2 [facility] Comment on above: Order Comment: Order Date: 07/20/24 Order Info: 0786-1 - CMP Performed By: #### L 500.4050, L502.0250, L100.0100 #### [facility] [address] [place], [address] Glucose [Mass/Vol] 90 mg/dL Normal 74-106 [facility] Comment on above: Order Comment: Order Date: 07/20/24 Order Info: 0786-1 - CMP Performed By: #### L 500.4050, L502.0250, L100.0100 #### [facility] [address] [place], [address] Potassium [Moles/Vol] 4.3 mmol/L Normal 3.5-5.1 [facility] Comment on above: Order Comment: Order Date: 07/20/24 Order Info: 0786-1 - CMP Performed By: #### L 500.4050, L502.0250, L100.0100 #### [facility] [address] [place], [address] Sodium [Moles/Vol] 138 mmol/L Normal 136-145 [facility] Comment on above: Order Comment: Order Date: 07/20/24 Order Info: 0786-1 - CMP Performed By: #### L 500.4050, L502.0250, L100.0100 #### [facility] [address] [place], [address] T PROT 7.5 g/dL Normal 6.4-8.2 [facility] Comment on above: Order Comment: Order Date: 07/20/24 Order Info: 0786-1 - CMP Performed By: #### L 500.4050, L502.0250, L100.0100 #### [facility] [address] [place], [address] Urea nitrogen [Mass/Vol] 18 mg/dL Normal 7-18 [facility] Comment on above: Order Comment: Order Date: 07/20/24 Order Info: 0786-1 - CMP Performed By: #### L 500.4050, L502.0250, L100.0100 #### [facility] [address] [place], [address] Microalb:Creat Ratio,Random URon 07-20-2024 Creatinine [Mass/Vol] 64.30 mg/dL Normal NO RAN GE EST. [facility] Comment on above: Order Comment: Order Date: 07/20/24 Order Info: 0779-1 - MIACRE Performed By: #### L 500.4050, L502.0250, L100.0100 #### [facility] [address] [place], [address] MALB:CRE 8.0 mg/g CRE Normal <30 mg/g CRE [facility] Comment on above: Order Comment: Order Date: 07/20/24 Order Info: 0779-1 - MIACRE Performed By: #### L 500.4050, L502.0250, L100.0100 #### [facility] [address] [place], [address] MICROALBUMIN,UR 5.2 mg/L Normal NO RANGE EST. [facility] Comment on above: Order Comment: Order Date: 07/20/24 Order Info: 0779-1 - MIACRE Performed By: #### L 500.4050, L502.0250, L100.0100 #### [facility] [address] [place], [address] Absolute lymphocyte countOrd ered By: Melvin Trujillo on 09-23-2023 Lymphocytes Auto (Unsp spec) [#/Vol] 1.91 10*3/uL 0.83-4.51 [facility] Automated lymphocyte count a s percentage of total leukocytesOrdered By: Melvin Trujillo on 09-23-2023 Lymphocytes/100 WBC Auto (Unsp spec) 20.1 % 19-41 [facility] Basophil percentageOrdered B y: Melvin Trujillo on 09-23-2023 Basophils/100 WBC (Bld) 0.8 % 0-1 [facility] Bilirubin [Mass/Vol] 0.80 mg/dL 0.20-1.00 [facility] Comment on above: For patients on eltr ombopag therapy, use of Dimension [place] TBIL is not recommended. Chloride [Moles/Vol] 107 mmol/L 98-107 [facility] Cholesterol [Mass/Vol] 138 mg/dL <200 [facility] Comment on above: <200 mg/dL Desirable 200-240 mg/dL Borderline >240 mg/dL High Risk Eosinophils/100 WBC (Bld) 2.2 % 0-5 [facility] Glucose [Mass/Vol] 114 mg/dL 74-106 [facility] Comment on above: Fasting Glucose resu lt from 100 to 125 mg/dL suggests IMPAIRED HOMEOSTASIS per A.D.A. criteria. Hemoglobin (Bld) [Mass/Vol] 15.1 g/dL 13.0-16.5 [facility] Monocytes/100 WBC (Bld) 7.3 % 0-10 [facility] Neutrophils (Bld) [#/Vol] 6.5 10*3/uL 2.0-7.7 [facility] Neutrophils/100 WBC (Bld) 68.9 % 47-70 [facility] Potassium [Moles/Vol] 5.2 mmol/L 3.5-5.1 [facility] Protein [Mass/Vol] 7.2 g/dL 6.4-8.2 [facility] Sodium [Moles/Vol] 138 mmol/L 136-145 [facility] Triglyceride [Mass/Vol] 84 mg/dL <199 [facility] Comment on above: The drugs N-Acetylcy steine and Metamizole may falsely depress this assay.Serum Triglycerides Reference Interval Normal <150 mg/dL Borderline high 150 - 199 mg/dL High 200 - 499 mg/dL Very High > or = 500 mg/dL WBC (Bld) [#/Vol] 9.5 10*3/uL 4.4-11.0 [facility] Determination of erythrocyte mean corpuscular volume (MCV)Ordered By: Melvin Trujillo on 09-23-2023 MCV (RBC) [Entitic vol] 96.5 fL 80-94 [facility] Erythrocyte distribution wid th ratioOrdered By: Melvin Trujillo on 09-23-2023 Erythrocyte distribution width (RBC) [Ratio] 14.0 % 11.6-14.6 [facility] Erythrocyte distribution wid th standard deviationOrdered By: Melvin Trujillo on 09-23-2023 Erythrocyte distribution width (RBC) [Entitic vol] 49.4 fL 35.1-43.9 [facility] Hematocrit Auto (Bld) [Volum e fraction]Ordered By: Melvin Trujillo on 09-23-2023 Hematocrit (Bld) [Volume fraction] 44.3 % 40-54 [facility] Immature granulocytes/100 WB C Auto (Bld)Ordered By: Melvin Trujillo on 09-23-2023 Immature granulocytes/100 WBC (Bld) 0.700 % 0.0-0.9 [facility] Comment on above: IG% - Immature Granu locytes (promyelocytes, myelocytes and metamyelocytes) > 1% indicates that a LEFT SHIFT is Present. Laboratory - Chemistry and C hemistry - challengeOrdered By: Melvin Trujillo on 09-23-2023 Albumin/Globulin [Mass ratio] 1.2 {ratio} 0.9-2.4 [facility] ALP [Catalytic activity/Vol] 65 U/L 45-117 [facility] ALT [Catalytic activity/Vol] 29 U/L 16-61 [facility] Cholesterol in HDL [Mass/Vol] 59 mg/dL >40 [facility] Comment on above: The drugs N-Acetylcy steine and Metamizole may falsely depress this assay. Reference Range HDL <40 mg/dL Low HDL Cholesterol HDL >or= 60 mg/dL High HDL Cholesterol Cholesterol in LDL [Mass/Vol] 62 mg/dL 0-130 [facility] CO2 [Moles/Vol] 30.0 mmol/L 21.0-32.0 [facility] Globulin (S) [Mass/Vol] 3.2 g/dL 2.2-4.2 [facility] Urea nitrogen/Creatinine [Mass ratio] 15.4 mg/mg 10-20 [facility] - Hematology and Cell countsOrdered By: Melvin Trujillo on 09-23-2023 MCH (RBC) [Entitic mass] 32.9 pg 27.0-32.0 [facility] MCHC (RBC) [Mass/Vol] 34.1 g/dL 32-36 [facility] Nucleated RBC/100 WBC (Bld) [Ratio] 0 % 0-5 [facility] Platelet mean volume (Bld) [Entitic vol] 10.5 fL 6.2-12.0 [facility] Platelets (Bld) [#/Vol] 268 10*3/uL 150-450 [facility] No Panel InformationOrdered By: Melvin Trujillo on 09-23-2023 Estimated GFR (MDRD) Amer 79 mL/min >60 [facility] Comment on above: GFR Calc Estimated GFR (MDRD) Non-Af Amer 66 mL/min >60 [facility] Comment on above: Non- GFR Calc Urine Microalbumin/Creatinin e Ratio 11.5 mg/g CRE <30 [facility] VLDL Cholesterol 17 mg/dL 5-40 [facility] RBC Auto (Bld) [#/Vol]Ordere d By: Melvin Trujillo on 09-23-2023 RBC (Bld) [#/Vol] 4.59 10*6/uL 4.6-6.2 [facility] Serum or plasma calcium todd urement (mass/volume)Ordered By: Melvin Trujillo on 09-23-2023 Calcium [Mass/Vol] 9.2 mg/dL 8.5-10.1 [facility] Serum or plasma creatinine m easurement (mass/volume)Ordered By: Melvin Trujillo on 09-23-2023 Creatinine [Mass/Vol] 1.17 mg/dL 0.70-1.30 [facility] Comment on above: The validity of the calculated GFR & GFRAA in patients over 70 years has not been determined. Clinical correlation is essential. Serum or plasma urea nitroge n measurement (mass/volume)Ordered By: Melvin Trujillo on 09-23-2023 Urea nitrogen [Mass/Vol] 18 mg/dL 7-18 [facility] Thin prep Papanicolaou smear with manual screeningOrdered By: Melvin Trujillo on 09-23-2023 Thin prep Papanicolaou smear with manual screening 4.0 g/dL 3.2-5.0 [facility] Thin prep Papanicolaou smear with manual screening 20 U/L 15-37 [facility] Thin prep Papanicolaou smear with manual screening 1 5-15 [facility] Thin prep Papanicolaou smear with manual screening 8.7 mg/L NO RANGE EST. [facility] Urine creatinine measurement (mass/volume)Ordered By: Melvin Trujillo on 09-23-2023 Creatinine (U) [Mass/Vol] 75.40 mg/dL NO RANGE EST. [facility] Absolute lymphocyte countOrd ered By: Melvin Trujillo on 01-21-2023 Lymphocytes Auto (Unsp spec) [#/Vol] 1.69 10*3/uL 0.83-4.51 [facility] Basophil percentageOrdered B y: Melvin Trujillo on 01-21-2023 Basophil percentage 2.9 mg/dL 2.5-4.9 [facility] Basophils/100 WBC (Bld) 0.8 % 0-1 [facility] Bilirubin [Mass/Vol] 0.40 mg/dL 0.20-1.00 [facility] Comment on above: For patients on eltr ombopag therapy, use of Dimension [place] TBIL is not recommended. Chloride [Moles/Vol] 104 mmol/L 98-107 [facility] Eosinophils/100 WBC (Bld) 2.6 % 0-5 [facility] Glucose [Mass/Vol] 91 mg/dL 74-106 [facility] Neutrophils (Bld) [#/Vol] 5.1 10*3/uL 2.0-7.7 [facility] Neutrophils/100 WBC (Bld) 65.8 % 47-70 [facility] Potassium [Moles/Vol] 4.9 mmol/L 3.5-5.1 [facility] Protein [Mass/Vol] 7.2 g/dL 6.4-8.2 [facility] Sodium [Moles/Vol] 139 mmol/L 136-145 [facility] WBC (Bld) [#/Vol] 7.7 10*3/uL 4.4-11.0 [facility] Blood erythrocytes count (nu mber/volume)Ordered By: Melvin Trujillo on 01-21-2023 RBC (Bld) [#/Vol] 4.43 10*6/uL 4.6-6.2 [facility] Blood hemoglobin measurement (mass/volume)Ordered By: Melvin Trujillo on 01-21-2023 Hemoglobin (Bld) [Mass/Vol] 14.7 g/dL 13.0-16.5 [facility] Blood lymphocytes/100 leukoc ytesOrdered By: Melvin Trujillo on 01-21-2023 Lymphocytes/100 WBC (Bld) 21.9 % 19-41 [facility] Blood monocytes/100 leukocyt esOrdered By: Melvin Trujillo on 01-21-2023 Monocytes/100 WBC (Bld) 8.5 % 0-10 [facility] Blood platelet mean volumeOr dered By: Melvin Trujillo on 01-21-2023 Platelet mean volume (Bld) [Entitic vol] 10.5 fL 6.2-12.0 [facility] Determination of erythrocyte mean corpuscular volume (MCV)Ordered By: Melvin Trujillo on 01-21-2023 MCV (RBC) [Entitic vol] 98.2 fL 80-94 [facility] Hematocrit Auto (Bld) [Volum e fraction]Ordered By: Melvin Trujillo on 01-21-2023 Hematocrit (Bld) [Volume fraction] 43.5 % 40-54 [facility] - Chemistry and C hemistry - challengeOrdered By: Melvin Trujillo on 01-21-2023 ALP [Catalytic activity/Vol] 69 U/L 45-117 [facility] ALT [Catalytic activity/Vol] 26 U/L 16-61 [facility] CO2 [Moles/Vol] 30.0 mmol/L 21.0-32.0 [facility] Globulin (S) [Mass/Vol] 3.3 g/dL 2.2-4.2 [facility] Magnesium [Mass/Vol] 2.3 mg/dL 1.6-2.6 [facility] Urea nitrogen/Creatinine [Mass ratio] 15.8 mg/mg 10-20 [facility] - Hematology and Cell countsOrdered By: Melvin Trujillo on 01-21-2023 Erythrocyte distribution width (RBC) [Entitic vol] 47.8 fL 35.1-43.9 [facility] Erythrocyte distribution width (RBC) [Ratio] 13.2 % 11.6-14.6 [facility] Immature granulocytes/100 WBC (Bld) 0.400 % 0.0-0.9 [facility] Comment on above: IG% - Immature Granu locytes (promyelocytes, myelocytes and metamyelocytes) > 1% indicates that a LEFT SHIFT is Present. MCH (RBC) [Entitic mass] 33.2 pg 27.0-32.0 [facility] Nucleated RBC/100 WBC (Bld) [Ratio] 0 % 0-5 [facility] MCHC Auto (RBC) [Mass/Vol]Or dered By: Melvin Trujillo on 01-21-2023 MCHC (RBC) [Mass/Vol] 33.8 g/dL 32-36 [facility] No Panel InformationOrdered By: Melvin Trujillo on 01-21-2023 Estimated GFR (MDRD) Amer 77 mL/min >60 [facility] Comment on above: GFR Calc Estimated GFR (MDRD) Non-Af Amer 64 mL/min >60 [facility] Comment on above: Non- GFR Calc Thyroid Stimulating Hormone (TSH) 2.18 uIU/mL 0.358-3.74 [facility] Platelets bldOrdered By: Lizabeth Trujillo on 01-21-2023 Platelets (Bld) [#/Vol] 245 10*3/uL 150-450 [facility] Serum or plasma albumin todd urement (mass/volume)Ordered By: Melvin Trujillo on 01-21-2023 Albumin [Mass/Vol] 3.9 g/dL 3.2-5.0 [facility] Serum or plasma albumin/glob ulin mass ratioOrdered By: Melvin Trujillo on 01-21-2023 Albumin/Globulin [Mass ratio] 1.2 {ratio} 0.9-2.4 [facility] Serum or plasma calcium todd urement (mass/volume)Ordered By: Melvin Trujillo on 01-21-2023 Calcium [Mass/Vol] 8.8 mg/dL 8.5-10.1 [facility] Serum or plasma creatinine m easurement (mass/volume)Ordered By: Melvin Trujillo on 01-21-2023 Creatinine [Mass/Vol] 1.20 mg/dL 0.70-1.30 [facility] Comment on above: The validity of the calculated GFR & GFRAA in patients over 70 years has not been determined. Clinical correlation is essential. Serum or plasma urea nitroge n measurement (mass/volume)Ordered By: Melvin Trujillo on 01-21-2023 Urea nitrogen [Mass/Vol] 19 mg/dL 7-18 [facility] Thin prep Papanicolaou smear with manual screeningOrdered By: Melvin Trujillo on 01-21-2023 Thin prep Papanicolaou smear with manual screening 18 U/L 15-37 [facility] Thin prep Papanicolaou smear with manual screening 5 - [facility] SURGICAL PATHOLOGY RESULTSon 11-13-2022 Pathology Report Name JARON MIRELES Pathologist: BRIAN MCGRATH M.D. Date of Procedure: 11/06/2022 Date Received: 11/06/2022 Date Reported 11/13/2022 Submitting Physician: VINAYAK EDMONDS DO [place] [facility] [place] Copy To/Referring/Attendin g: MELVIN TRUJILLO MD Other External # FINAL DIAGNOSIS RECTOSIGMOID COLON, POLYP, POLYPECTOMY: -- HYPERPLASTIC POLYP. Electronically Signed Out By BRIAN MCGRATH M.D./MAKENZIE By the signature on this report, the individual or group listed as making the Final Interpretation/Diagno sis certifies that they have reviewed this case. Diagnostic interpretation performed at [place] [address] Clinical History: Clinical Diagnosis History COLONOSCOPY Specimens Submitted As: A: RECTO-SIGMOID JUNCTION POLYP Gross Description: Received in formalin, labeled with the patient's name and hospital number and rectosigmoid polyp, is a fragment of engel, soft tissue measuring 0.4 x 0.3 x 0.2 cm. The specimen is submitted in toto in one cassette. MKM mkm/11/08/2022 [facility] Department of Pathology [address] [place] [address] Colonoscopyon 11-06-2022 Colonoscopy PATIENTNAME Patient Name: Jaron Mireles EXAMDATE Procedure Date: 11/06/2022 2:21 PM PATIENTID PATIENTACCOUNTNUM PATIENTDOB Date of : 1955 ADMITTYPE Admit Type: Outpatient PATIENTROOM Site: [facility] Endo Proc RM 1 ETHNICITY Ethnicity: Not or RACE Race: White PROVDR Attending MD: Vinayak Edmonds DO, [id number] ENDOPROCEDURENAME Procedure: Colonoscopy INDICATION Indications: Surveillance: Personal history of colonic polyps (unknown histology) on last colonoscopy more than 5 years ago PRIMARYPROVIDER Providers: Vinayak Edmonds DO (Doctor), Damaris Ferrari RN (Nurse), Joel Sanchez, Network Programmer EDREFPROVIDER Referring: Melvin Trujillo MD CURRENT_MEDS Medicines: Midazolam 7.5 mg IV, Meperidine 50 mg IV COMPLIC Complications: No immediate complications. ENDOPROCEDURETEXT Procedure: Pre-Anesthesia Assessment: - Prior to the procedure, a History and Physical was performed, and patient medications and allergies were reviewed. The patient is competent. The risks and benefits of the procedure and the sedation options and risks were discussed with the patient. All questions were answered and informed consent was obtained. Patient identification and proposed procedure were verified by the physician in the pre-procedure area. Mental Status Examination: alert and oriented. Airway Examination: normal oropharyngeal airway and neck mobility. Respiratory Examination: clear to auscultation. CV Examination: normal. Prophylactic Antibiotics: The patient does not require prophylactic antibiotics. Prior Anticoagulants: The patient has taken no anticoagulant or antiplatelet agents. ASA Grade Assessment: II - A patient with mild systemic disease. After reviewing the risks and benefits, the patient was deemed in satisfactory condition to undergo the procedure. The anesthesia plan was to use moderate sedation / analgesia (conscious sedation). Immediately prior to administration of medications, the patient was re-assessed for adequacy to receive sedatives. The heart rate, respiratory rate, oxygen saturations, blood pressure, adequacy of pulmonary ventilation, and response to care were monitored throughout the procedure. The physical status of the patient was re-assessed after the procedure. After I obtained informed consent, the scope was passed under direct vision. Throughout the procedure, the patient's blood pressure, pulse, and oxygen saturations were monitored continuously. The pediatric colonoscope was introduced through the anus and advanced to the cecum, identified by appendiceal orifice and ileocecal valve. The colonoscopy was performed without difficulty. The patient tolerated the procedure well. The quality of the bowel preparation was good. The ileocecal valve, appendiceal orifice, and rectum were photographed. FINDING Findings: The perianal and digital rectal examinations were normal. Pertinent negatives include normal sphincter tone and no palpable rectal lesions. A 3 mm polyp was found in the recto-sigmoid colon. The polyp was sessile. The polyp was removed with a cold biopsy forceps. Resection and retrieval were complete. The exam was otherwise without abnormality on direct and retroflexion views. SEDATION Moderate Sedation: Moderate (conscious) sedation was administered by the nurse and supervised by the endoscopist. The following parameters were monitored: oxygen saturation, heart rate, blood pressure, and response to care. Total physician intraservice time was 28 minutes. EBL Estimated Blood Loss: Estimated blood loss: none. IMPRESS Impression: - One 3 mm polyp at the recto-sigmoid colon, removed with a cold biopsy forceps. Resected and retrieved. - The examination was otherwise normal on direct and retroflexion views. ENDORECOMMENDATION Recommendation: - Patient has a contact number available for emergencies. The signs and symptoms of potential delayed complications were discussed with the patient. Return to normal activities tomorrow. Written discharge instructions were provided to the patient. - Resume previous diet. - Continue present medications. - Repeat colonoscopy in 5 years for surveillance based on pathology results. CPT_CODES Procedure Code(s): --- Professional --- 48329, Colonoscopy, flexible; with biopsy, single or multiple 64722, Moderate sedation; each additional 15 minutes intraservice time G0500, Moderate sedation services provided by the same physician or other qualified health clinical care coordinator performing a gastrointestinal endoscopic service that sedation supports, requiring the presence of an independent trained observer to assist in the monitoring of the patient's level of consciousness and physiological status; initial 15 minutes of intra-service time; patient age 5 years or older (additional (more content not included)... Normal [facility] Vinayak Edmonds DO - 12/02/2022 Patient Name: Jaron Mireles Procedure Date: 11/06/2022 2:21 PM Date of : 1955 Admit Type: Outpatient Site: [facility] 1 Ethnicity: Not or Race: White Attending MD: Vinayak Edmonds DO, [id number] Procedure: Colonoscopy Indications: Surveillance: Personal history of colonic polyps (unknown histology) on last colonoscopy more than 5 years ago Providers: Vinayak Edmonds DO (Doctor), Damaris Ferrari RN (Nurse), Joel Sanchez, Network Programmer Referring: Melvin Trujillo MD Medicines: Midazolam 7.5 mg IV, Meperidine 50 mg IV Complications: No immediate complications. Procedure: Pre-Anesthesia Assessment: - Prior to the procedure, a History and Physical was performed, and patient medications and allergies were reviewed. The patient is competent. The risks and benefits of the procedure and the sedation options and risks were discussed with the patient. All questions were answered and informed consent was obtained. Patient identification and proposed procedure were verified by the physician in the pre-procedure area. Mental Status Examination: alert and oriented. Airway Examination: normal oropharyngeal airway and neck mobility. Respiratory Examination: clear to auscultation. CV Examination: normal. Prophylactic Antibiotics: The patient does not require prophylactic antibiotics. Prior Anticoagulants: The patient has taken no anticoagulant or antiplatelet agents. ASA Grade Assessment: II - A patient with mild systemic disease. After reviewing the risks and benefits, the patient was deemed in satisfactory condition to undergo the procedure. The anesthesia plan was to use moderate sedation / analgesia (conscious sedation). Immediately prior to administration of medications, the patient was re-assessed for adequacy to receive sedatives. The heart rate, respiratory rate, oxygen saturations, blood pressure, adequacy of pulmonary ventilation, and response to care were monitored throughout the procedure. The physical status of the patient was re-assessed after the procedure. After I obtained informed consent, the scope was passed under direct vision. Throughout the procedure, the patient's blood pressure, pulse, and oxygen saturations were monitored continuously. The pediatric colonoscope was introduced through the anus and advanced to the cecum, identified by appendiceal orifice and ileocecal valve. The colonoscopy was performed without difficulty. The patient tolerated the procedure well. The quality of the bowel preparation was good. The ileocecal valve, appendiceal orifice, and rectum were photographed. Findings: The perianal and digital rectal examinations were normal. Pertinent negatives include normal sphincter tone and no palpable rectal lesions. A 3 mm polyp was found in the recto-sigmoid colon. The polyp was sessile. The polyp was removed with a cold biopsy forceps. Resection and retrieval were complete. The exam was otherwise without abnormality on direct and retroflexion views. Moderate Sedation: Moderate (conscious) sedation was administered by the nurse and supervised by the endoscopist. The following parameters were monitored: oxygen saturation, heart rate, blood pressure, and response to care. Total physician intraservice time was 28 minutes. Estimated Blood Loss: Estimated blood loss: none. Impression: - One 3 mm polyp at the recto-sigmoid colon, removed with a cold biopsy forceps. Resected and retrieved. - The examination was otherwise normal on direct and retroflexion views. Recommendation: - Patient has a contact number available for emergencies. The signs and symptoms of potential delayed complications were discussed with the patient. Return to normal activities tomorrow. Written discharge instructions were provided to the patient. - Resume previous diet. - Continue present medications. - Repeat colonoscopy in 5 years for surveillance based on pathology results. Procedure Code(s): --- Professional --- 24528, Colonoscopy, flexible; with biopsy, single or multiple 07431, Moderate sedation; each additional 15 minutes intraservice time G0500, Moderate sedation services provided by the same physician or other qualified health clinical care coordinator performing a gastrointestinal endoscopic service that sedation supports, requiring the presence of an independent trained observer to assist in the monitoring of the patient's level of consciousness and physiological status; initial 15 minutes of intra-service time; patient age 5 years or older (additional time may be reported with [address]262, as appropriate) Diagnosis Code(s): --- Professional --- Z12.11, Encounter for screening for malignant neoplasm of colon Z86.010, Personal history of colonic polyps (more content not included)... [facility] Work Phone: Radiology Study observation (narrative) [facility] Work Phone: ColonoscopyOrdered By: Vinayak Edmonds on 11-06-2022 [facility] Work Phone: [facility] Surgical Pathology Depar tmenton 11-06-2022 [facility] Surgical Pathology Department Name JARON MIRELESCandelaria Pathologist: BRIAN MCGRATH M.D. Date of Procedure: 11/06/2022 Date Received: 11/06/2022 Date Reported 11/13/2022 Submitting Physician: VINAYAK EDMONDS DO Location: [facility] Copy To/Referring/Attendin g: MELVIN TRUJILLO MD Other External # FINAL DIAGNOSIS RECTOSIGMOID COLON, POLYP, POLYPECTOMY: -- HYPERPLASTIC POLYP. Electronically Signed Out By BRIAN MCGRATH M.D./MAKENZIE By the signature on this report, the individual or group listed as making the Final Interpretation/Diagno sis certifies that they have reviewed this case. Diagnostic interpretation performed at [address] [place] [address] Clinical History: Clinical Diagnosis History COLONOSCOPY Specimens Submitted As: A: RECTO-SIGMOID JUNCTION POLYP Gross Description: Received in formalin, labeled with the patient's name and hospital number and rectosigmoid polyp, is a fragment of engel, soft tissue measuring 0.4 x 0.3 x 0.2 cm. The specimen is submitted in toto in one cassette. MKM mkm/11/08/2022 [facility] Department of Pathology [id number] [place] [address] Normal [facility] Comment on above: Performed By: #### [facility] #### [facility] Surgical Pathology Department [address] [place] [address] Absolute lymphocyte countOrd ered By: Dr. Trujillo on 10-11-2022 Lymphocytes Auto (Unsp spec) [#/Vol] 2.30 10*3/uL 0.83-4.51 [facility] Basophil percentageOrdered B y: Chris Pineda on 10-11-2022 Cholesterol [Mass/Vol] 128 mg/dL <200 [facility] Comment on above: <200 mg/dL Desirable 200-240 mg/dL Borderline >240 mg/dL High Risk Triglyceride [Mass/Vol] 73 mg/dL <199 [facility] Comment on above: The drugs N-Acetylcy steine and Metamizole may falsely depress this assay.Serum Triglycerides Reference Interval Normal <150 mg/dL Borderline high 150 - 199 mg/dL High 200 - 499 mg/dL Very High > or = 500 mg/dL Basophil percentageOrdered B y: Dr. Trujillo on 10-11-2022 Basophils/100 WBC (Bld) 1.2 % 0-1 [facility] Bilirubin [Mass/Vol] 0.60 mg/dL 0.20-1.00 [facility] Comment on above: For patients on eltr ombopag therapy, use of Dimension [place] TBIL is not recommended. Chloride [Moles/Vol] 105 mmol/L 98-107 [facility] Eosinophils/100 WBC (Bld) 2.6 % 0-5 [facility] Glucose [Mass/Vol] 98 mg/dL 74-106 [facility] Neutrophils (Bld) [#/Vol] 4.7 10*3/uL 2.0-7.7 [facility] Neutrophils/100 WBC (Bld) 58.8 % 47-70 [facility] Potassium [Moles/Vol] 4.5 mmol/L 3.5-5.1 [facility] Protein [Mass/Vol] 7.1 g/dL 6.4-8.2 [facility] Sodium [Moles/Vol] 140 mmol/L 136-145 [facility] WBC (Bld) [#/Vol] 8.0 10*3/uL 4.4-11.0 [facility] Blood erythrocytes count (nu mber/volume)Ordered By: Dr. Trujillo on 10-11-2022 RBC (Bld) [#/Vol] 4.72 10*6/uL 4.6-6.2 [facility] Blood hemoglobin measurement (mass/volume)Ordered By: Dr. Trujillo on 10-11-2022 Hemoglobin (Bld) [Mass/Vol] 15.2 g/dL 13.0-16.5 [facility] Blood lymphocytes/100 leukoc ytesOrdered By: Dr. Trujillo on 10-11-2022 Lymphocytes/100 WBC (Bld) 28.6 % 19-41 [facility] Blood monocytes/100 leukocyt esOrdered By: Dr. Trujillo on 10-11-2022 Monocytes/100 WBC (Bld) 7.8 % 0-10 [facility] Blood platelet mean volumeOr dered By: Dr. Trujillo on 10-11-2022 Platelet mean volume (Bld) [Entitic vol] 10.1 fL 6.2-12.0 [facility] Determination of erythrocyte mean corpuscular volume (MCV)Ordered By: Dr. Trujillo on 10-11-2022 MCV (RBC) [Entitic vol] 96.2 fL 80-94 [facility] Direct bilirubinOrdered By: Dr. Trujillo on 10-11-2022 Bilirubin.direct [Mass/Vol] 0.19 mg/dL 0.00-0.30 [facility] Hematocrit Auto (Bld) [Volum e fraction]Ordered By: Dr. Trujillo on 10-11-2022 Hematocrit (Bld) [Volume fraction] 45.4 % 40-54 [facility] Laboratory - Chemistry and C hemistry - challengeOrdered By: Dr. Trujillo on 10-11-2022 ALP [Catalytic activity/Vol] 74 U/L 45-117 [facility] ALT [Catalytic activity/Vol] 21 U/L 16-61 [facility] CO2 [Moles/Vol] 29.0 mmol/L 21.0-32.0 [facility] Free T4 [Mass/Vol] 0.88 ng/dL 0.76-1.46 [facility] Globulin (S) [Mass/Vol] 3.1 g/dL 2.2-4.2 [facility] Urea nitrogen/Creatinine [Mass ratio] 18.8 mg/mg 10-20 [facility] Laboratory - Hematology and Cell countsOrdered By: Dr. Trujillo on 10-11-2022 Erythrocyte distribution width (RBC) [Entitic vol] 45.3 fL 35.1-43.9 [facility] Erythrocyte distribution width (RBC) [Ratio] 12.7 % 11.6-14.6 [facility] Immature granulocytes/100 WBC (Bld) 1.000 % 0.0-0.9 [facility] Comment on above: IG% - Immature Granu locytes (promyelocytes, myelocytes and metamyelocytes) > 1% indicates that a LEFT SHIFT is Present. MCH (RBC) [Entitic mass] 32.2 pg 27.0-32.0 [facility] Nucleated RBC/100 WBC (Bld) [Ratio] 0 % 0-5 [facility] MCHC Auto (RBC) [Mass/Vol]Or dered By: Dr. Trujillo on 10-11-2022 MCHC (RBC) [Mass/Vol] 33.5 g/dL 32-36 [facility] No Panel InformationOrdered By: Dr. Trujillo on 10-11-2022 Anti-Nuclear Antibody Screen Negative Negative [facility] Comment on above: Performed at: [address] [id number] Director: Baldo Jauregui PhD, Phone: [phone] Estimated GFR (MDRD) Amer 94 mL/min >60 [facility] Comment on above: GFR Calc Estimated GFR (MDRD) Non-Af Amer 78 mL/min >60 [facility] Comment on above: Non- GFR Calc Thyroid Stimulating Hormone (TSH) 2.28 uIU/mL 0.358-3.74 [facility] Platelets bldOrdered By: Dr. Trujillo on 10-11-2022 Platelets (Bld) [#/Vol] 249 10*3/uL 150-450 [facility] Serum or plasma albumin todd urement (mass/volume)Ordered By: Dr. Trujillo on 10-11-2022 Albumin [Mass/Vol] 4.0 g/dL 3.2-5.0 [facility] Serum or plasma albumin/glob ulin mass ratioOrdered By: Dr. Trujillo on 10-11-2022 Albumin/Globulin [Mass ratio] 1.3 {ratio} 0.9-2.4 [facility] Serum or plasma calcium todd urement (mass/volume)Ordered By: Dr. Trujillo on 10-11-2022 Calcium [Mass/Vol] 9.2 mg/dL 8.5-10.1 [facility] Serum or plasma cholesterol in HDL measurement (mass/volume)Ordered By: Chris Pineda on 10-11-2022 Cholesterol in HDL [Mass/Vol] 51 mg/dL >40 [facility] Comment on above: The drugs N-Acetylcy steine and Metamizole may falsely depress this assay. Reference Range HDL <40 mg/dL Low HDL Cholesterol HDL >or= 60 mg/dL High HDL Cholesterol Serum or plasma cholesterol in VLDL measurement (mass/volume)Ordered By: Chris Pineda on 10-11-2022 Cholesterol in VLDL [Mass/Vol] 15 mg/dL 5-40 [facility] Serum or plasma creatinine m easurement (mass/volume)Ordered By: Dr. Trujillo on 10-11-2022 Creatinine [Mass/Vol] 1.01 mg/dL 0.70-1.30 [facility] Comment on above: The validity of the calculated GFR & GFRAA in patients over 70 years has not been determined. Clinical correlation is essential. Serum or plasma low density lipoprotein (LDL) cholesterol measurement (mass/volume)Ordered By: Chris Pineda on 10-11-2022 Cholesterol in LDL [Mass/Vol] 62 mg/dL 0-130 [facility] Serum or plasma urea nitroge n measurement (mass/volume)Ordered By: Dr. Trujillo on 10-11-2022 Urea nitrogen [Mass/Vol] 19 mg/dL 7-18 [facility] Thin prep Papanicolaou smear with manual screeningOrdered By: Dr. Trujillo on 10-11-2022 Thin prep Papanicolaou smear with manual screening 14 U/L 15-37 [facility] Thin prep Papanicolaou smear with manual screening 6 5-15 [facility] No Panel InformationOrdered By: Dr. Valladares on 07-15-2022 Prostate Specific Antigen Screen 1.72 ng/mL 0.00-4.00 [facility] Comment on above: This test was perfor med using the TPSA assay method for the[employer] chemistry system. Values obtained with differentassay methods cannot be used interchangably.When changing PSA assays in the course of monitoring apatient, additional sequential testing should be carriedout to confirm baseline values. Absolute lymphocyte countOrd ered By: Dr. Azevedo on 05-16-2022 Lymphocytes Auto (Unsp spec) [#/Vol] 2.24 10*3/uL 0.83-4.51 [facility] Basophil percentageOrdered B y: Dr. Azevedo on 05-16-2022 Basophils/100 WBC (Bld) 0.8 % 0-1 [facility] Chloride [Moles/Vol] 107 mmol/L 98-107 [facility] Eosinophils/100 WBC (Bld) 3.2 % 0-5 [facility] Glucose [Mass/Vol] 100 mg/dL 74-106 [facility] Comment on above: Fasting Glucose resu lt from 100 to 125 mg/dL suggests IMPAIRED HOMEOSTASIS per A.D.A. criteria. Neutrophils (Bld) [#/Vol] 6.2 10*3/uL 2.0-7.7 [facility] Neutrophils/100 WBC (Bld) 64.4 % 47-70 [facility] Potassium [Moles/Vol] 4.2 mmol/L 3.5-5.1 [facility] Sodium [Moles/Vol] 141 mmol/L 136-145 [facility] WBC (Bld) [#/Vol] 9.6 10*3/uL 4.4-11.0 [facility] Blood erythrocytes count (nu mber/volume)Ordered By: Dr. Azevedo on 05-16-2022 RBC (Bld) [#/Vol] 4.92 10*6/uL 4.6-6.2 [facility] Blood hemoglobin measurement (mass/volume)Ordered By: Dr. Azevedo on 05-16-2022 Hemoglobin (Bld) [Mass/Vol] 15.9 g/dL 13.0-16.5 [facility] Blood lymphocytes/100 leukoc ytesOrdered By: Dr. Azevedo on 05-16-2022 Lymphocytes/100 WBC (Bld) 23.3 % 19-41 [facility] Blood monocytes/100 leukocyt esOrdered By: Dr. Azevedo on 05-16-2022 Monocytes/100 WBC (Bld) 7.9 % 0-10 [facility] Blood platelet mean volumeOr dered By: Dr. Azevedo on 05-16-2022 Platelet mean volume (Bld) [Entitic vol] 10.3 fL 6.2-12.0 [facility] Determination of erythrocyte mean corpuscular volume (MCV)Ordered By: Dr. Azevedo on 05-16-2022 MCV (RBC) [Entitic vol] 95.7 fL 80-94 [facility] Hematocrit Auto (Bld) [Volum e fraction]Ordered By: Dr. Azevedo on 05-16-2022 Hematocrit (Bld) [Volume fraction] 47.1 % 40-54 [facility] Laboratory - Chemistry and C hemistry - challengeOrdered By: Dr. Azevedo on 05-16-2022 CO2 [Moles/Vol] 30.0 mmol/L 21.0-32.0 [facility] Urea nitrogen/Creatinine [Mass ratio] 17.3 mg/mg 10-20 [facility] Laboratory - Hematology and Cell countsOrdered By: Dr. Azevedo on 05-16-2022 Erythrocyte distribution width (RBC) [Entitic vol] 46.1 fL 35.1-43.9 [facility] Erythrocyte distribution width (RBC) [Ratio] 13.2 % 11.6-14.6 [facility] Immature granulocytes/100 WBC (Bld) 0.400 % 0.0-0.9 [facility] Comment on above: IG% - Immature Granu locytes (promyelocytes, myelocytes and metamyelocytes) > 1% indicates that a LEFT SHIFT is Present. MCH (RBC) [Entitic mass] 32.3 pg 27.0-32.0 [facility] Nucleated RBC/100 WBC (Bld) [Ratio] 0 % 0-5 [facility] MCHC Auto (RBC) [Mass/Vol]Or dered By: Dr. Azevedo on 05-16-2022 MCHC (RBC) [Mass/Vol] 33.8 g/dL 32-36 [facility] No Panel InformationOrdered By: Dr. Azevedo on 05-16-2022 Estimated GFR (MDRD) Amer 86 mL/min >60 [facility] Comment on above: GFR Calc Estimated GFR (MDRD) Non-Af Amer 71 mL/min >60 [facility] Comment on above: Non- GFR Calc Platelets bldOrdered By: Dr. Azevedo on 05-16-2022 Platelets (Bld) [#/Vol] 295 10*3/uL 150-450 [facility] Serum or plasma calcium todd urement (mass/volume)Ordered By: Dr. Azevedo on 05-16-2022 Calcium [Mass/Vol] 9.3 mg/dL 8.5-10.1 [facility] Serum or plasma creatinine m easurement (mass/volume)Ordered By: Dr. Azevedo on 05-16-2022 Creatinine [Mass/Vol] 1.10 mg/dL 0.70-1.30 [facility] Comment on above: The validity of the calculated GFR & GFRAA in patients over 70 years has not been determined. Clinical correlation is essential. Serum or plasma urea nitroge n measurement (mass/volume)Ordered By: Dr. Azevedo on 05-16-2022 Urea nitrogen [Mass/Vol] 19 mg/dL 7-18 [facility] Thin prep Papanicolaou smear with manual screeningOrdered By: Dr. Azevedo on 05-16-2022 Thin prep Papanicolaou smear with manual screening 4 5-15 [facility] Basophil percentageon 06-28- 2022 Bilirubin [Mass/Vol] 0.40 mg/dL 0.20-1.00 [facility] Work Phone: Comment on above: For patients on eltr ombopag therapy, use of Dimension [place] TBIL is not recommended. Chloride [Moles/Vol] 103 mmol/L 98-107 [facility] Work Phone: Glucose [Mass/Vol] 92 mg/dL 74-106 [facility] Work Phone: [phone] Potassium [Moles/Vol] 4.7 mmol/L 3.5-5.1 [facility] Work Phone: Protein [Mass/Vol] 7.5 g/dL 6.4-8.2 [facility] Work Phone: Sodium [Moles/Vol] 138 mmol/L 136-145 [facility] Work Phone: Laboratory - Chemistry and C hemistry - challengeon 12-04-2021 ALP [Catalytic activity/Vol] 80 U/L 45-117 [facility] Work Phone: ALT [Catalytic activity/Vol] 28 U/L 16-61 [facility] Work Phone: CO2 [Moles/Vol] 30.0 mmol/L 21.0-32.0 [facility] Work Phone: Cobalamin (Vitamin B12) [Mass/Vol] 545 pg/mL 211-911 [facility] Work Phone: Free T4 [Mass/Vol] 0.99 ng/dL 0.76-1.46 [facility] Work Phone: Globulin (S) [Mass/Vol] 3.2 g/dL 2.2-4.2 [facility] Work Phone: Urea nitrogen/Creatinine [Mass ratio] 17.7 mg/mg 10-20 [facility] Work Phone: No Panel Informationon 12-04 Estimated GFR (MDRD) Amer 100 mL/min >60 [facility] Work Phone: Comment on above: GFR Calc Estimated GFR (MDRD) Non-Af Amer 83 mL/min >60 [facility] Work Phone: Comment on above: Non- GFR Calc Vitamin D 25-Hydroxy 59.1 ng/mL [facility] Work Phone: Comment on above: Vitamin D 25(OH) Sta tus Range Deficiency <20 ng/mL (50nmol/L) Insufficiency 20 - 30 ng/mL (50 - 75 nmol/L) Sufficiency 30 - 100 ng/mL (75 - 250 nmol/L) Toxicity >100 ng/mL (>250 nmol/L) Serum or plasma albumin todd urement (mass/volume)on 12-04-2021 Albumin [Mass/Vol] 4.3 g/dL 3.2-5.0 [facility] Work Phone: Serum or plasma albumin/glob ulin mass ratioon 12-04-2021 Albumin/Globulin [Mass ratio] 1.3 {ratio} 0.9-2.4 [facility] Work Phone: Serum or plasma calcium todd urement (mass/volume)on 12-04-2021 Calcium [Mass/Vol] 9.4 mg/dL 8.5-10.1 [facility] Work Phone: Serum or plasma creatinine m easurement (mass/volume)on 12-04-2021 Creatinine [Mass/Vol] 0.96 mg/dL 0.70-1.30 [facility] Work Phone: Comment on above: The validity of the calculated GFR & GFRAA in patients over 70 years has not been determined. Clinical correlation is essential. Serum or plasma urea nitroge n measurement (mass/volume)on 12-04-2021 Urea nitrogen [Mass/Vol] 17 mg/dL 7-18 [facility] Work Phone: Thin prep Papanicolaou smear with manual screeningon 12-04-2021 Thin prep Papanicolaou smear with manual screening 21 U/L 15-37 [facility] Work Phone: Thin prep Papanicolaou smear with manual screening 5 5-15 [facility] Work Phone: Absolute lymphocyte counton 11-28-2021 Lymphocytes Auto (Unsp spec) [#/Vol] 2.17 10*3/uL 0.83-4.51 [facility] Work Phone: Basophil percentageon 2021 Basophils/100 WBC (Bld) 0.7 % 0-1 [facility] Work Phone: Bilirubin [Mass/Vol] 0.60 mg/dL 0.20-1.00 [facility] Work Phone: Comment on above: For patients on eltr ombopag therapy, use of Dimension [place] TBIL is not recommended. Chloride [Moles/Vol] 105 mmol/L 98-107 [facility] Work Phone: Cholesterol [Mass/Vol] 119 mg/dL <200 [facility] Work Phone: Comment on above: <200 mg/dL Desirable 200-240 mg/dL Borderline >240 mg/dL High Risk Eosinophils/100 WBC (Bld) 3.2 % 0-5 [facility] Work Phone: Glucose [Mass/Vol] 91 mg/dL 74-106 [facility] Work Phone: Neutrophils (Bld) [#/Vol] 5.4 10*3/uL 2.0-7.7 [facility] Work Phone: Neutrophils/100 WBC (Bld) 62.2 % 47-70 [facility] Work Phone: Potassium [Moles/Vol] 4.4 mmol/L 3.5-5.1 [facility] Work Phone: Protein [Mass/Vol] 7.0 g/dL 6.4-8.2 [facility] Work Phone: Sodium [Moles/Vol] 139 mmol/L 136-145 [facility] Work Phone: Triglyceride [Mass/Vol] 89 mg/dL <199 [facility] Work Phone: Comment on above: The drugs N-Acetylcy steine and Metamizole may falsely depress this assay.Serum Triglycerides Reference Interval Normal <150 mg/dL Borderline high 150 - 199 mg/dL High 200 - 499 mg/dL Very High > or = 500 mg/dL WBC (Bld) [#/Vol] 8.7 10*3/uL 4.4-11.0 [facility] Work Phone: Blood erythrocytes count (nu mber/volume)on 11-28-2021 RBC (Bld) [#/Vol] 4.75 10*6/uL 4.6-6.2 [facility] Work Phone: Blood hemoglobin measurement (mass/volume)on 11-28-2021 Hemoglobin (Bld) [Mass/Vol] 15.4 g/dL 13.0-16.5 [facility] Work Phone: Blood lymphocytes/100 leukoc yteson 11-28-2021 Lymphocytes/100 WBC (Bld) 24.9 % 19-41 [facility] Work Phone: Blood monocytes/100 leukocyt eson 11-28-2021 Monocytes/100 WBC (Bld) 8.5 % 0-10 [facility] Work Phone: Blood platelet mean volumeon 11-28-2021 Platelet mean volume (Bld) [Entitic vol] 10.1 fL 6.2-12.0 [facility] Work Phone: Determination of erythrocyte mean corpuscular volume (MCV)on 11-28-2021 MCV (RBC) [Entitic vol] 95.6 fL 80-94 [facility] Work Phone: Direct bilirubinon 2 Bilirubin.direct [Mass/Vol] 0.19 mg/dL 0.00-0.30 [facility] Work Phone: Hematocrit Auto (Bld) [Volum e fraction]on 11-28-2021 Hematocrit (Bld) [Volume fraction] 45.4 % 40-54 [facility] Work Phone: Laboratory - Chemistry and C hemistry - challengeon 11-28-2021 ALP [Catalytic activity/Vol] 79 U/L 45-117 [facility] Work Phone: ALT [Catalytic activity/Vol] 25 U/L 16-61 [facility] Work Phone: [phone] CO2 [Moles/Vol] 30.0 mmol/L 21.0-32.0 [facility] Work Phone: Globulin (S) [Mass/Vol] 3.0 g/dL 2.2-4.2 [facility] Work Phone: Urea nitrogen/Creatinine [Mass ratio] 23.5 mg/mg 10-20 [facility] Work Phone: Laboratory - Hematology and Cell countson 11-28-2021 Erythrocyte distribution width (RBC) [Entitic vol] 44.9 fL 35.1-43.9 [facility] Work Phone: Erythrocyte distribution width (RBC) [Ratio] 12.8 % 11.6-14.6 [facility] Work Phone: Immature granulocytes/100 WBC (Bld) 0.500 % 0.0-0.9 [facility] Work Phone: Comment on above: IG% - Immature Granu locytes (promyelocytes, myelocytes and metamyelocytes) > 1% indicates that a LEFT SHIFT is Present. MCH (RBC) [Entitic mass] 32.4 pg 27.0-32.0 [facility] Work Phone: Nucleated RBC/100 WBC (Bld) [Ratio] 0 % 0-5 [facility] Work Phone: MCHC Auto (RBC) [Mass/Vol]on 11-28-2021 MCHC (RBC) [Mass/Vol] 33.9 g/dL 32-36 [facility] Work Phone: No Panel Informationon 11-28 Estimated GFR (MDRD) Amer 103 mL/min >60 [facility] Work Phone: Comment on above: GFR Calc Estimated GFR (MDRD) Non-Af Amer 85 mL/min >60 [facility] Work Phone: Comment on above: Non- GFR Calc Thyroid Stimulating Hormone (TSH) 2.66 uIU/mL 0.358-3.74 [facility] Work Phone: Platelets bldon 11-28-2021 Platelets (Bld) [#/Vol] 243 10*3/uL 150-450 [facility] Work Phone: Serum or plasma albumin todd urement (mass/volume)on 11-28-2021 Albumin [Mass/Vol] 4.0 g/dL 3.2-5.0 [facility] Work Phone: Serum or plasma calcium todd urement (mass/volume)on 11-28-2021 Calcium [Mass/Vol] 9.0 mg/dL 8.5-10.1 [facility] Work Phone: Serum or plasma cholesterol in HDL measurement (mass/volume)on 11-28-2021 Cholesterol in HDL [Mass/Vol] 43 mg/dL >40 [facility] Work Phone: Comment on above: The drugs N-Acetylcy steine and Metamizole may falsely depress this assay. Reference Range HDL <40 mg/dL Low HDL Cholesterol HDL >or= 60 mg/dL High HDL Cholesterol Serum or plasma cholesterol in VLDL measurement (mass/volume)on 11-28-2021 Cholesterol in VLDL [Mass/Vol] 18 mg/dL 5-40 [facility] Work Phone: Serum or plasma creatinine m easurement (mass/volume)on 11-28-2021 Creatinine [Mass/Vol] 0.94 mg/dL 0.70-1.30 [facility] Work Phone: Comment on above: The validity of the calculated GFR & GFRAA in patients over 70 years has not been determined. Clinical correlation is essential. Serum or plasma low density lipoprotein (LDL) cholesterol measurement (mass/volume)on 11-28-2021 Cholesterol in LDL [Mass/Vol] 58 mg/dL 0-130 [facility] Work Phone: Serum or plasma urea nitroge n measurement (mass/volume)on 11-28-2021 Urea nitrogen [Mass/Vol] 22 mg/dL 7-18 [facility] Work Phone: Thin prep Papanicolaou smear with manual screeningon 11-28-2021 Thin prep Papanicolaou smear with manual screening 19 U/L 15-37 [facility] Work Phone: Thin prep Papanicolaou smear with manual screening 4 5-15 [facility] Work Phone: Absolute lymphocyte counton 07-27-2021 Lymphocytes Auto (Unsp spec) [#/Vol] 2.44 10*3/uL 0.83-4.51 [facility] Work Phone: Basophil percentageon 2021 Basophils/100 WBC (Bld) 0.7 % 0-1 [facility] Work Phone: Bilirubin [Mass/Vol] 0.50 mg/dL 0.20-1.00 [facility] Work Phone: Comment on above: For patients on eltr ombopag therapy, use of Dimension [place] TBIL is not recommended. Chloride [Moles/Vol] 108 mmol/L 98-107 [facility] Work Phone: Eosinophils/100 WBC (Bld) 5.3 % 0-5 [facility] Work Phone: Glucose [Mass/Vol] 82 mg/dL 74-106 [facility] Work Phone: Neutrophils (Bld) [#/Vol] 4.4 10*3/uL 2.0-7.7 [facility] Work Phone: Neutrophils/100 WBC (Bld) 55.0 % 47-70 [facility] Work Phone: Potassium [Moles/Vol] 3.8 mmol/L 3.5-5.1 [facility] Work Phone: Protein [Mass/Vol] 6.5 g/dL 6.4-8.2 [facility] Work Phone: Sodium [Moles/Vol] 139 mmol/L 136-145 [facility] Work Phone: WBC (Bld) [#/Vol] 8.1 10*3/uL 4.4-11.0 [facility] Work Phone: Blood erythrocytes count (nu mber/volume)on 07-27-2021 RBC (Bld) [#/Vol] 4.62 10*6/uL 4.6-6.2 [facility] Work Phone: Blood hemoglobin measurement (mass/volume)on 07-27-2021 Hemoglobin (Bld) [Mass/Vol] 14.4 g/dL 13.0-16.5 [facility] Work Phone: Blood lymphocytes/100 leukoc yteson 07-27-2021 Lymphocytes/100 WBC (Bld) 30.3 % 19-41 [facility] Work Phone: Blood monocytes/100 leukocyt eson 07-27-2021 Monocytes/100 WBC (Bld) 8.2 % 0-10 [facility] Work Phone: Blood platelet mean volumeon 07-27-2021 Platelet mean volume (Bld) [Entitic vol] 10.3 fL 6.2-12.0 [facility] Work Phone: [phone] Determination of erythrocyte mean corpuscular volume (MCV)on 07-27-2021 MCV (RBC) [Entitic vol] 92.9 fL 80-94 [facility] Work Phone: Hematocrit Auto (Bld) [Volum e fraction]on 07-27-2021 Hematocrit (Bld) [Volume fraction] 42.9 % 40-54 [facility] Work Phone: [phone] Laboratory - Chemistry and C hemistry - challengeon 07-27-2021 ALP [Catalytic activity/Vol] 77 U/L 45-117 [facility] Work Phone: [phone] ALT [Catalytic activity/Vol] 22 U/L 16-61 [facility] Work Phone: [phone] CO2 [Moles/Vol] 27.0 mmol/L 21.0-32.0 [facility] Work Phone: [phone] Globulin (S) [Mass/Vol] 3.0 g/dL 2.2-4.2 [facility] Work Phone: [phone] Urea nitrogen/Creatinine [Mass ratio] 20.7 mg/mg 10-20 [facility] Work Phone: Laboratory - Hematology and Cell countson 07-27-2021 Erythrocyte distribution width (RBC) [Entitic vol] 44.6 fL 35.1-43.9 [facility] Work Phone: [phone] Erythrocyte distribution width (RBC) [Ratio] 12.9 % 11.6-14.6 [facility] Work Phone: [phone] Immature granulocytes/100 WBC (Bld) 0.500 % 0.0-0.9 [facility] Work Phone: Comment on above: IG% - Immature Granu locytes (promyelocytes, myelocytes and metamyelocytes) > 1% indicates that a LEFT SHIFT is Present. MCH (RBC) [Entitic mass] 31.2 pg 27.0-32.0 [facility] Work Phone: Nucleated RBC/100 WBC (Bld) [Ratio] 0 % 0-5 [facility] Work Phone: [phone] MCHC Auto (RBC) [Mass/Vol]on 07-27-2021 MCHC (RBC) [Mass/Vol] 33.6 g/dL 32-36 [facility] Work Phone: No Panel Informationon 07-27 Estimated Creatinine Clearance Calc 102.75 ml/min [facility] Work Phone: Estimated GFR (MDRD) Amer 120 mL/min >60 [facility] Work Phone: Comment on above: GFR Calc Estimated GFR (MDRD) Non-Af Amer 99 mL/min >60 [facility] Work Phone: Comment on above: Non- GFR Calc Platelets bldon 07-27-2021 Platelets (Bld) [#/Vol] 248 10*3/uL 150-450 [facility] Work Phone: Serum or plasma albumin todd urement (mass/volume)on 07-27-2021 Albumin [Mass/Vol] 3.5 g/dL 3.2-5.0 [facility] Work Phone: Serum or plasma albumin/glob ulin mass ratioon 07-27-2021 Albumin/Globulin [Mass ratio] 1.2 {ratio} 0.9-2.4 [facility] Work Phone: Serum or plasma calcium todd urement (mass/volume)on 07-27-2021 Calcium [Mass/Vol] 8.6 mg/dL 8.5-10.1 [facility] Work Phone: Serum or plasma creatinine m easurement (mass/volume)on 07-27-2021 Creatinine [Mass/Vol] 0.82 mg/dL 0.70-1.30 [facility] Work Phone: Comment on above: The validity of the calculated GFR & GFRAA in patients over 70 years has not been determined. Clinical correlation is essential. Serum or plasma urea nitroge n measurement (mass/volume)on 07-27-2021 Urea nitrogen [Mass/Vol] 17 mg/dL -18 [facility] Work Phone: Thin prep Papanicolaou smear with manual screeningon 07-27-2021 Thin prep Papanicolaou smear with manual screening 16 U/L 15-37 [facility] Work Phone: Thin prep Papanicolaou smear with manual screening 4 5-15 [facility] Work Phone: No Panel Informationon 07-26 Troponin I High Sensitivity 6 pg/mL 3.0-78.0 [facility] Work Phone: Comment on above: Please Note: New Fatimah t Units and Gender Specific Reference Ranges. For more information see Policy Stat Procedure [place] High Sensitivity Troponin (TNIH) and attachments. D-Dimer Quantitative (PE/DVT) 0.30 FEU/ug/m 0.27-0.49 [facility] Work Phone: Comment on above: NORMAL D-Dimer level (<0.50) indicates no DVT or PE. Whole blood hemoglobin A1c/t otal hemoglobin ratio (mass fraction)on 07-26-2021 HbA1c (Bld) [Mass fraction] 5.7 % 3.8-5.6 [facility] Work Phone: Comment on above: Normal < 5.7 % Predi abetic 5.7 - 6.4 % Diabetic >or= 6.5 % Please note range changes. EKGon 03-08-2019 Ordered by an unspecified provider. [facility] BMPon 03-06-2019 Anion gap [Moles/Vol] 12 mmol/L 10 - 2 0 mmol/L [facility] Calcium [Mass/Vol] 9.2 mg/dL 8.4 - 10. 2 mg/dL [facility] Chloride [Moles/Vol] 106 mmol/L 98 - 10 8 mmol/L [facility] Creatinine [Mass/Vol] 1.02 mg/dL 0.8 - 1.3 mg/dL [facility] GFR/1.73 sq M predicted among non-blacks MDRD (S/P/Bld) [Vol rate/Area] The eGFR should be used for monitoring renal function only and not for medication dosing. [facility] GFR/1.73 sq M.predicted CKD-EPI (S/P/Bld) [Vol rate/Area] 77 >=60 mL/min/1.73 m2 [facility] Glucose [Mass/Vol] 134 mg/dL High 65 - 99 mg/dL [facility] HCO3 [Moles/Vol] 27 mmol/L 21 - 32 mmol/L [facility] Potassium [Moles/Vol] 4.0 mmol/L 3.5 - 5.1 mmol/L [facility] Sodium [Moles/Vol] 141 mmol/L 135 - 145 mmol/L [facility] Urea nitrogen [Mass/Vol] 16 mg/dL 8 - 25 mg/dL [facility] Urea nitrogen/Creatinine [Mass ratio] 15.7 mg/mg [facility] CBC WITH AUTO DIFFERENTIALon 03-06-2019 Basophils (Bld) [#/Vol] 0.06 10*3/uL [facility] Basophils/100 WBC (Bld) 0.6 % [facility] Eosinophils (Bld) [#/Vol] 0.26 10*3/uL [facility] Eosinophils/100 WBC (Bld) 2.7 % [facility] Erythrocyte distribution width (RBC) [Entitic vol] 12.7 % 11.6 - 14.8 % [facility] Hematocrit (Bld) [Volume fraction] 43.5 % 41 - 53 % [facility] Hemoglobin (Bld) [Mass/Vol] 15.0 g/dL 13.5 - 17.5 g/dL [facility] Immature granulocytes (Bld) [#/Vol] 0.05 10*3/uL [facility] Immature granulocytes/100 WBC (Bld) 0.50 % [facility] Comment on above: The IG parameter is the percentage of metamyelocytes, myelocytes, and promyelocytes. Lymphocytes (Bld) [#/Vol] 1.89 10*3/uL [facility] Lymphocytes/100 WBC (Bld) 19.4 % [facility] MCH (RBC) [Entitic mass] 31.9 pg 26 - 34 pg [facility] MCHC (RBC) [Mass/Vol] 34.5 g/dL 31 - 37 g/dL [facility] MCV (RBC) [Entitic vol] 92.6 fL 80 - 100 fL [facility] Monocytes (Bld) [#/Vol] 0.63 10*3/uL [facility] Monocytes/100 WBC (Bld) 6.5 % [facility] Neutrophils (Bld) [#/Vol] 6.87 10*3/uL [facility] Neutrophils/100 WBC (Bld) 70.3 % [facility] Nucleated RBC (Bld) [#/Vol] 0.00 10*3/uL [facility] Nucleated RBC/100 WBC (Bld) [Ratio] 0.0 % [facility] Platelet mean volume (Bld) [Entitic vol] 10.5 fL 9 - 15.5 fL [facility] Platelets (Bld) [#/Vol] 256 10*3/uL [facility] RBC (Bld) [#/Vol] 4.70 10*6/uL [facility] ealth WBC (Bld) [#/Vol] 9.76 10*3/uL [facility] ealt ECG 12-LEADon 03-06-2019 Atrial Rate 76 BPM [facility] P [place] 71 degrees [facility] P-R Interval 144 ms [facility] Q-T Interval 386 ms [facility] QRS Duration 80 ms [facility] QTC Calculation (Bezet) 434 ms [facility] R [place] 78 degrees [facility] T [place] 78 degrees [facility] Ventricular Rate 76 BPM [facility] th ECG Cart Interpretation see physician note for interpretation. Poor data quality, interpretation may be adversely affected Normal sinus rhythm with sinus arrhythmia Normal ECG Confirmed by Angi Antonio ([id number]) on 03/06/2019 10:56:03 PM [facility] Otheron 03-06-2019 Extra Tube Hold for add-ons. [facility] Comment on above: Auto resulted. Interpretation and review of laboratory results Abnormal [facility] TROPONINon 03-06-2019 Interpretation and review of laboratory results Abnormal [facility] Troponin I.cardiac [Mass/Vol] 19 % <20% of Baseline Troponin [facility] Troponin I.cardiac [Mass/Vol] 62 ng/L Critically high <=45 [facility] Troponin I.cardiac [Mass/Vol] Probable non-acute cardiac injury or late presentation of acute injury. [facility] Troponin I.cardiac [Mass/Vol] 52 ng/L Critically high <=45 [facility] Troponin I.cardiac [Mass/Vol] Possible acute cardiac injury. [facility] XR CHEST AP/PA AND LATon Interface[facility] 03/06/2019 5:40 PM EDT EXAMINATION: XR CHEST AP/PA AND LAT HISTORY: ORDERING SYSTEM PROVIDED HISTORY: acute chest pain, TECHNOLOGIST PROVIDED HISTORY: Illness/Other Reason for exam: chest pain, hx of recent stents Cancer History: u Surgery, RadiationHistory: u Encounter Type: Initial Additional signs and symptoms: na ORDERING SYSTEM PROVIDED DIAGNOSIS CODES: TECHNIQUE: Frontal and lateral chest radiographs. COMPARISON: Chest radiograph(s) dated 05/30/2017. FINDINGS: There is persistent mild flattening of the hemidiaphragms. No focal consolidation, pleural effusion, or pneumothorax. The cardiomediastinal silhouette is normal in size. There are multilevel degenerative changes of the spine. There are degenerative changes of the shoulders. No acute osseous abnormality. IMPRESSION: No acute cardiopulmonary process. Persistent mild flattening of the hemidiaphragms suggest mild emphysema. [facility]/lab Workstation ID: [id number] [facility] EXAMINATION: XR CHES T AP/PA AND LAT HISTORY: ORDERING SYSTEM PROVIDED HISTORY: acute chest pain, TECHNOLOGIST PROVIDED HISTORY: Illness/Other Reason for exam: chest pain, hx of recent stents Cancer History: u Surgery, RadiationHistory: u Encounter Type: Initial Additional signs and symptoms: na ORDERING SYSTEM PROVIDED DIAGNOSIS CODES: TECHNIQUE: Frontal and lateral chest radiographs. COMPARISON: Chest radiograph(s) dated 05/30/2017. FINDINGS: There is persistent mild flattening of the hemidiaphragms. No focal consolidation, pleural effusion, or pneumothorax. The cardiomediastinal silhouette is normal in size. There are multilevel degenerative changes of the spine. There are degenerative changes of the shoulders. No acute osseous abnormality. [facility] No acute cardiopulmonary process. Persistent mild flattening of the hemidiaphragms suggest mild emphysema. [facility]/lab Workstation ID: [id number] [facility] XR CHEST AP/PA AND LAT EXAMINATION: XR CHEST AP/PA AND LAT HISTORY: ORDERING SYSTEM PROVIDED HISTORY: acute chest pain, TECHNOLOGIST PROVIDED HISTORY: Illness/Other Reason for exam: chest pain, hx of recent stents Cancer History: u Surgery, RadiationHistory: u Encounter Type: Initial Additional signs and symptoms: na ORDERING SYSTEM PROVIDED DIAGNOSIS CODES: TECHNIQUE: Frontal and lateral chest radiographs. COMPARISON: Chest radiograph(s) dated 05/30/2017. FINDINGS: There is persistent mild flattening of the hemidiaphragms. No focal consolidation, pleural effusion, or pneumothorax. The cardiomediastinal silhouette is normal in size. There are multilevel degenerative changes of the spine. There are degenerative changes of the shoulders. No acute osseous abnormality. IMPRESSION: No acute cardiopulmonary process. Persistent mild flattening of the hemidiaphragms suggest mild emphysema. [facility] Workstation ID: [id number] Dictated by: ORIN MALDONADO on Sat Mar 06, 2019 2:29:13 PM EDT Transcribed by: CRYSTAL BRADLEY on Sat Mar 06, 2019 2:39:07 PM EDT Finalized by: ORIN MALDONADO on Sat Mar 06, 2019 5:38:16 PM EDT Normal [facility] Comment on above: Order Comment: Injur y/Trauma or Illness?:Illness/Other How long have you had these symptoms (acute/chronic)?:Acute Reason for exam?:chest pain, hx of recent stents History of cancer?:u Surgeries, chemotherapy, or radiation?:u Type of Exam?:Initial Additional signs and symptoms?:na [facility] 08-07-2018 [facility] HNO ID: [id number] Author: Barbara Paulino) REYNOLD Lindsey Service: Radiology Author Type: Clinical Network Programmer Type: [facility] Filed: 08/07/2018 1:55 PM Note Text: Radiology Service Progress Note PATIENT NAME: Jaron Mireles DATE OF SERVICE: August 07, 2018 TIME: 1:55 PM PATIENT IDENTITY VERIFICATION COMPLETED USING TWO (2) METHODS: Patient confirmed name verbally and ID band matches.. PATIENT GENDER DATA: Male PATIENT RELEVANT IMPLANT DATA REVIEWED: Not Applicable RADIOLOGY DEPARTMENT: CT; Exam(s) Completed: Abdomen/Pelvis PERIPHERAL IV DATA: Not applicable SIGNED BY: REYNOLD Tierney August 07, 2018 1:55 PM Normal [facility] APTTon 08-07-2018 aPTT Coag time (Bld) 27.9 s Normal 23.0-32.4 [facility] Comment on above: Result Comment: Unfr actionated Heparin Therapeutic Ranges: Standard Heparin Nomogram: 53 to 78 seconds (anti-Xa level of 0.3 to 0.7 U/ml) Low Dose/ACS Nomogram: 49 to 67 seconds (anti-Xa level of 0.2 to 0.5 U/ml) Stroke Treatment Nomogram: 49 to 67 seconds (anti-Xa level of 0.2 to 0.5 U/ml) Note: The APTT therapeutic range has been determined for the current lot of laboratory APTT reagent in use throughout the [facility]. Performed By: #### C BCDIF, PT, PTT, CMP #### [facility] [address] [place] [address] CBC and Differentialon 08-07 Abs Baso 0.10 k/uL Normal <0.11 [facility] Comment on above: Performed By: #### C BCDIF, PT, PTT, CMP #### [facility] [address] [address] Abs Parmer 0.90 k/uL High <0.87 [facility] Comment on above: Performed By: #### C BCDIF, PT, PTT, CMP #### [facility] [address] [address] Abs Neut 6.49 k/uL Normal 1.45-7.50 [facility] Comment on above: Performed By: #### C BCDIF, PT, PTT, CMP #### [facility] [address] [address] Basophils/100 WBC (Bld) 1.0 % Normal [facility] Comment on above: Performed By: #### C BCDIF, PT, PTT, CMP #### [facility] [address] [place] [address] Eosinophils #/vol (Bld) 0.31 10*3/uL Normal <0.46 [facility] Comment on above: Performed By: #### C BCDIF, PT, PTT, CMP #### [facility] [address] [place] [address] Eosinophils/100 WBC (Bld) 3.1 % Normal [facility] Comment on above: Performed By: #### C BCDIF, PT, PTT, CMP #### [facility] [address] [place] [address] Erythrocyte distribution width Ratio (RBC) 12.9 % Normal 11.5-15.0 [facility] Comment on above: Performed By: #### C BCDIF, PT, PTT, CMP #### [facility] [address] [place] [address] Hematocrit Volume Fraction (Bld) 48.9 % Normal 39.0-51.0 [facility] Comment on above: Performed By: #### C BCDIF, PT, PTT, CMP #### [facility] [address] [place] [address] Hemoglobin mass conc (Bld) 16.3 g/dL Normal 13.0-17.0 [facility] Comment on above: Performed By: #### C BCDIF, PT, PTT, CMP #### [facility] [address] [address] Lymphocytes #/vol (Bld) 2.24 10*3/uL Normal 1.00-4.00 [facility] Comment on above: Performed By: #### C BCDIF, PT, PTT, CMP #### [facility] [address] Lymphocytes/100 WBC (Bld) 22.3 % Normal [facility] Comment on above: Performed By: #### C BCDIF, PT, PTT, CMP #### [facility] [address] [address] MCH Entitic mass (RBC) 31.1 pG Normal 26.0-34.0 [facility] Comment on above: Performed By: #### C BCDIF, PT, PTT, CMP #### [facility] [address] [address] MCHC mass conc (RBC) 33.3 g/dL Normal 30.5-36.0 [facility] Comment on above: Performed By: #### C BCDIF, PT, PTT, CMP #### [facility] [address] [place] [address] MCV Entitic volume (RBC) 93.3 fL Normal 80.0-100.0 [facility] Comment on above: Performed By: #### C BCDIF, PT, PTT, CMP #### [facility] [address] [place] [address] Monocytes/100 WBC (Bld) 9.0 % Normal [facility] Comment on above: Performed By: #### C BCDIF, PT, PTT, CMP #### [facility] [address] [place] [address] Neutrophils/100 WBC (Bld) 64.6 % Normal [facility] Comment on above: Performed By: #### C BCDIF, PT, PTT, CMP #### [facility] [address] [id number] Platelet mean volume Entitic volume (Bld) 10.3 fL Normal 9.0-12.7 [facility] Comment on above: Performed By: #### C BCDIF, PT, PTT, CMP #### [facility] [address] [address] Platelets #/vol (Bld) 261 10*3/uL Normal 150-400 [facility] Comment on above: Performed By: #### C BCDIF, PT, PTT, CMP #### [facility] [address] [phone] RBC #/vol (Bld) 5.24 10*6/uL Normal 4.20-6.00 [facility] Comment on above: Performed By: #### C BCDIF, PT, PTT, CMP #### [facility] [address] [id number] WBC #/vol (Bld) 10.04 10*3/uL Normal 3.70-11.00 [facility] Comment on above: Performed By: #### C BCDIF, PT, PTT, CMP #### [facility] [address] [id number] CT ABD/PEL WO IVCONon 2018 CT ABD/PEL WO IVCON * * *Final Report* * * DATE OF EXAM: Aug 07 2018 1:54PM [facility] [place] [facility] - [place] ABD/PEL WO IVCON / PROCEDURE REASON: Flank pain, stone disease suspected * * * * Physician Interpretation * * * * EXAMINATION: CT ABDOMEN AND PELVIS WITHOUT IV CONTRAST CLINICAL HISTORY: Flank pain, stone disease suspected, Hematuria, gross, BLOOD IN URINE PAIN LT SIDE TECHNIQUE: Non-IV contrast imaging of the abdomen and pelvis was performed using standard technique, scanning from just above the dome of the diaphragm to the symphysis pubis. Unenhanced imaging is limited for the evaluation of some intra-abdominal and pelvic pathology. MQ: CTAPWO_3 Contrast: IV: None : ml of CT Radiation dose: Integrated Dose-length product (DLP) for this visit = 538 mGy*cm. CT Dose Reduction Employed: mAs-kVp adjusted based on patient size-age COMPARISON: None. RESULT: Abdomen / Pelvis: Liver: Unremarkable. Biliary: Gallbladder is absent. No ductal dilatation. Spleen: Calcified splenic granulomas. No splenomegaly. Pancreas: Unremarkable. Adrenals: No mass. Kidneys: Four central collecting system calculi on the left, the largest measuring 7.5 mm. No right-sided calculi. No hydronephrosis. GI Tract: No bowel dilation. The appendix is unremarkable. Small hiatal hernia. Gastric wall thickening measuring up to 2 cm, perhaps on the basis of incomplete distention. Gastritis and neoplasm are thought less likely but not excluded. Lymph Nodes: No lymphadenopathy. Mesentery/peritoneum: No ascites. Retroperitoneum: No mass. Vasculature: Mild atherosclerotic calcifications without aneurysm Pelvis: Slight urinary bladder wall thickening with a bubble of gas within the urinary bladder. Findings may be secondary to cystitis. There is enlargement of the median lobe of the prostate gland, compressing the base of the urinary bladder. Bones/Soft Tissues: No acute abnormality. Lower thorax: No infiltrate or pleural effusion. 12 mm dense calcification at the tip of the left ventricle either representing remote infarction or benign calcification either within the pericardium or adjacent to it. IMPRESSION: Nonobstructing left nephrolithiasis Slightly thickened gallbladder wall with a small amount of gas within the bladder. Assuming there has not been recent instrumentation, cystitis is the most likely etiology. Small hiatal hernia Nonspecific gastric wall thickening Prostate enlargement Hide Spreader: [facility] Transcribe Date/Time: Aug 07 2018 1:56P Dictated by : NADIA SHEA MD This examination was interpreted and the report reviewed and electronically signed by: NADIA SHEA MD on Aug 07 2018 2:34PM EST [id number] N Normal [facility] Comp Metabolic Panelon 08-07 Albumin mass conc 4.9 g/dL Normal 3.9-4.9 [facility] Comment on above: Performed By: #### C BCDIF, PT, PTT, CMP #### [facility] [address] [place] [address] ALP enzyme act/vol 84 U/L Normal 38-113 [facility] Comment on above: Performed By: #### C BCDIF, PT, PTT, CMP #### [facility] [address] [place], [place] [id number] ALT enzyme act/vol 16 U/L Normal 10-54 [facility] Comment on above: Performed By: #### C BCDIF, PT, PTT, CMP #### [facility] [address] [place] [address] Anion gap molar conc 9 mmol/L Normal 9-18 [facility] Comment on above: Performed By: #### C BCDIF, PT, PTT, CMP #### [facility] [address] [place] [address] AST enzyme act/vol 18 U/L Normal 14-40 [facility] Comment on above: Performed By: #### C BCDIF, PT, PTT, CMP #### [facility] [address] [place] [address] Bilirubin mass conc 0.6 mg/dL Normal 0.2-1.3 [facility] Comment on above: Performed By: #### C BCDIF, PT, PTT, CMP #### [facility] [address] [place] [address] Calcium mass conc 9.9 mg/dL Normal 8.5-10.2 [facility] Comment on above: Performed By: #### C BCDIF, PT, PTT, CMP #### [facility] [address] [place] [address] Chloride molar conc 101 mmol/L Normal 97-105 [facility] Comment on above: Performed By: #### C BCDIF, PT, PTT, CMP #### [facility] [address] [place] [address] CO2 molar conc 30 mmol/L Normal 22-30 [facility] Comment on above: Performed By: #### C BCDIF, PT, PTT, CMP #### [facility] [address] [place] [address] Creatinine mass conc 0.86 mg/dL Normal 0.73-1.22 [facility] Comment on above: Performed By: #### C BCDIF, PT, PTT, CMP #### [facility] [address] [place] [address] eGFR- Amer. >60 Normal [facility] Comment on above: Performed By: #### C BCDIF, PT, PTT, CMP #### [facility] [address] [place] [address] GFR/1.73 sq M predicted among non-blacks MDRD vol rate/area (S/P/Bld) mL/min/{1.73_m2} Normal [facility] Comment on above: Result Comment: eGFR (Estimated GFR) Units of measure: mL/min/1.73 meters squared eGFR is derived from the reexpressed MDRD Study equation using the following parameters: serum creatinine, age, gender and race. The creatinine assay has been calibrated to be traceable to IDMS. An eGFR <60 mL/min/1.73m2 for >3 months is consistent with chronic kidney disease. Refer to KDOQI guidelines for clinical interpretation. In patients with unstable renal function, e.g. those with acute kidney injury, the eGFR may not accurately reflect actual GFR. Performed By: #### C BCDIF, PT, PTT, CMP #### [facility] [address] [place] [address] Glucose mass conc 99 mg/dL Normal 74-99 [facility] Comment on above: Result Comment: The [place] Diabetes Association (ADA) provides guidance for cutoff values for fasting glucose and random glucose. The ADA defines fasting as no caloric intake for at least 8 hours. Fasting plasma glucose results between 100 to 125 mg/dL indicate increased risk for diabetes (prediabetes). Fasting plasma glucose results greater than or equal to 126 mg/dL meet the criteria for diagnosis of diabetes. In the absence of unequivocal hyperglycemia, results should be confirmed by repeat testing. In a patient with classic symptoms of hyperglycemia or hyperglycemic crisis, random plasma glucose results greater than or equal to 200 mg/dL meet the criteria for diagnosis of diabetes. Reference: Standards of Medical Care in Diabetes 2016, [place] [employer] Association. Diabetes Care. 2016.39(Suppl 1). Performed By: #### C BCDIF, PT, PTT, CMP #### [facility] [address] [place] [address] Potassium molar conc 4.3 mmol/L Normal 3.7-5.1 [facility] Comment on above: Performed By: #### C BCDIF, PT, PTT, CMP #### [facility] [address] [place] [address] Protein mass conc 7.7 g/dL Normal 6.3-8.0 [facility] Comment on above: Performed By: #### C BCDIF, PT, PTT, CMP #### [facility] [address] [place] [address] Sodium molar conc 140 mmol/L Normal 136-144 [facility] Comment on above: Performed By: #### C BCDIF, PT, PTT, CMP #### [facility] [address] [place] [address] Urea nitrogen mass conc 20 mg/dL Normal 9-24 [facility] Comment on above: Performed By: #### C BCDIF, PT, PTT, CMP #### [facility] [address] [facility] [phone] ED NOTEon 08-07-2018 ED NOTE HNO ID: [id number] Author: Margaret (Rn) AMINATA Lin Service: Nursing Author Type: Registered Nurse Type: ED Notes Filed: 08/07/2018 1:19 PM Note Text: Pt presents to ED with c/o hematuria and clots since yesterday. Pt went to [place] for same thing last night and was told to follow up with a urologist. The urologist that was recommended is out of town and he says the clots are getting bigger and more frequent Normal [facility] ED PROV NOTEon 08-07-2018 Protein mass conc HNO ID: [id number] Author: Arcadio Hess) Suze Service: (none) Author Type: Physician Client Support Manager Type: ED Provider Notes Filed: 08/07/2018 10:53 PM Note Text: ED Provider Note Patient Name: Jaron Mireles SERVICE DATE: 08/07/18 History Patient presents with: Hematuria: with clots 63-year-old male presents emergency Department with complaints of hematuria. States he was seen at [facility] yesterday and had his bladder irrigated. States that he was urinating clear but shortly after returning home and became pink and this morning had a significant amount of clots. Denies being on blood thinners but states he takes an aspirin daily for preventative cardiovascular measures. Denies any abdominal pain. Denies any flank pain. States that he hasincreased in urination but denies any burning with urination. Denies any fever or chills. Denies any history of hematuria. Denies any penile drainage. Denies any testicular pain. 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 and spouse interpreter deaf used: No PAST MEDICAL HISTORY Diagnosis Date - Chest pain, unspecified - Esophagitis, unspecified - High cholesterol PAST SURGICAL HISTORY Procedure Laterality Date - COLONOSCOPY 2014 - EGD Dr. Fernandez - EGD W/O BRSH SPECIMEN W/BX 12/18/09 - EGD W/O BRSH SPECIMEN W/BX 11/29/15 gastritis/esophagitis - LAP CHOLECYSTECT/CHOLANGI OGRAPHY 12/21/15 hydrops - REMOVAL OF KIDNEY STONE 1993 FAMILY HISTORY Problem Relation Age of Onset - Diabetes Mother - Diabetes Sister - Diabetes Brother - Hypertension Father - Hypertension Brother - Hypertension Brother - Hypertension Brother - Hypertension Sister - Diabetes Brother - Stroke Father at 63 years old, caused Social History Social History Main Topics - Smoking status: Current Every Day Smoker Packs/day: 1.00 Types: Cigarettes - Smokeless tobacco: Not on file - Alcohol use No - Drug use: No - Sexual activity: Not on file ALLERGIES No Known Allergies Review of Systems Constitutional: Negative. Negative for chills, fatigue and fever. HENT: Negative. Respiratory: Negative. Negative for cough, shortness of breath and wheezing. Cardiovascular: Negative. Negative for chest pain. Gastrointestinal: Negative for abdominal pain, nausea and vomiting. Genitourinary: Positive for flank pain, frequency and hematuria. Negative for dysuria, testicular pain and urgency. Intermittent, subjective, left low back and flank pain. Denies any at this time but had pain earlier today. Skin: Negative. Negative for rash and wound. Neurological: Negative. Hematological: Negative. Does not bruise/bleed easily. Psychiatric/Behaviora l: Negative. Physical Exam BP 159/75 Pulse 81 Temp (Src) 98.4 (Oral) Resp 16 Ht 6' 3 (1.91m) Wt 196 lb (88.9kg) SpO2 98% BMI 24.50 kg/(m2). Physical Exam Constitutional: He is oriented to person, place, and time. He appears well-developed and well-nourished. HENT: Head: Atraumatic. Nose: Nose normal. Eyes: Pupils are equal, round, and reactive to light. EOM are normal. Neck: Normal range of motion. Cardiovascular: Normal rate. Pulmonary/Chest: Effort normal. Abdominal: Soft. Bowel sounds are normal. He exhibits no distension. There is no tenderness. No CVA tenderness patient has subjective left lower back/flank pain Neurological: He is alert and oriented to person, place, and time. No cranial nerve deficit. Coordination normal. Skin: Skin is warm. No erythema. No pallor. Psychiatric: He has a normal mood and affect. His behavior is normal. Judgment and thought content normal. Nursing note and vitals reviewed. Diagnostic Testing ED Labs Ordered and Reviewed CBC + DIFF - Abnormal; Notable for the following: Result Value Ref Range Abs Parmer 0.90 (*) <0.87 k/uL All other components within normal limits URINALYSIS - Abnormal; Notable for the following: Color Red (*) Yellow Appearance (U) Turbid (*) Clear Glucose, Urine Color interference, unable to perform assay. (*) Negative mg/dL Bilirubin, Urine Color interference, unable to perform assay. (*) Negative Ketones, Urine Color interference, unable to perform assay. (*) Negative Hemoglobin/Blood,Ur Color interference, unable to perform assay. (*) Negative Protein, Urine Color interference, unable to perform assay. (*) Negative mg/dL Nitrites Color interference, unable to perform assay. (*) Negative Leukest Color interference, unable to perform assay. (*) Negative All other components within normal limits URINE MICROSCOPIC - Abnormal; Notable for the following: WBC, Urine 10-30 (*) 0 - 5 /HPF RBC, Urine Too numerous to count (*) 0 - 3 /HPF Bacteria Few (*) 0 /HPF All other components within normal limits COMP METABOLIC PANEL PROTHROMBIN TIME/PT ACTIVATED PTT URINE CULTURE CT ABD/PEL WO IVCON Final Result IMPRESSION: Nonobstructing left nephrolithiasis Slightly thickened gallbladder wall with a small amount of gas within the bladder. Assuming there has not been recent instrumentation, cystitis is the most likely etiology. Small hiatal hernia Nonspecific gastric wall thickening Prostate enlargement Hide Spreader: CHARLIE Transcribe Date/Time: Aug 07 2018 1:56P Dictated by : NADIA SHEA MD This examination was interpreted and the report reviewed and electronically signed by: NADIA SHEA MD on Aug 07 2018 2:34PM EST Procedures ED Course / Clinical Impression Clinical Impressions as of Aug 07 2245 Acute cystitis with hematuria MDM / Disposition / Plan MDM Here in the bladder could be secondary to his suspected cystitis or possibly because he had a catheter placed yesterday. Nonsurgical abdomen at time of discharge. Lab work, history and exam are consistent with a UTI. Advised to follow-up with urology and was given contact information for 2 urologists for follow-up outpatient. Advised to return here immediately if symptoms change or worsen. Patient had asked if he should discontinue his aspirin and I said no that he should take it but he was going to take a few days off from it. I advised him that the reason he takes aspirin for cardiovascular help/prevention is more important than decreasing his risk for hematuria. Patient fully understood that not taking aspirin could affect his heart health. Advised to return here immediately if symptoms change or worsen. Asymptomatic at time of discharge. The patient was DISCHARGED: Counseled patient and spouse regarding lab results AND radiology results AND suspected diagnosis AND need for follow-up. Discharged home with verbal and written instructions. They were instructed to return as needed for persistent or worsening symptoms or any new concerns. Condition at time of disposition: stable SIGNATURE: DARRYL Nieto (Pa) 08/07/18 2253 Normal [facility] Protimeon 08-07-2018 Prothrombin time (PT) Coag time (PPP) 10.1 s Normal 9.7-13.0 [facility] Comment on above: Performed By: #### C BCDIF, PT, PTT, CMP #### [facility] [address] [facility] [phone] Prothrombin time (PT) Coag time (PPP) 1.0 s Normal 0.9-1.3 [facility] Comment on above: Result Comment: Love min K Antagonist (VKA) Therapeutic Range: INR 2 to 3 (Target INR of 2.5) Note: For patients treated with VKA drugs, such as warfarin, the [employer] 2012 Guideline recommends a therapeutic INR range of 2 to 3 (target INR of 2.5). This recommendation includes high-risk patients with antiphospholipid syndrome with previous arterial or venous thromboembolism, current-generation mechanical or bioprosthetic aortic heart valve replacement. Note: Patients with mechanical aortic valve replacement and additional risk factors for thromboembolic events (atrial fibrillation, previous thromboembolism, LV dysfunction, hypercoagulable conditions) or an older generation mechanical AVR (i.e., ball in-Cage) or any mechanical MVR should have a INR therapeutic range of 2.5 to 3.5 (target INR of 3). Adali GH, et al. Chest 2012, 141:7S-47S Evelyn RA et al. JAC 2017, 70: 252-289 Performed By: #### C BCDIF, PT, PTT, CMP #### [facility] [address] [facility] [phone] Urinalysison 08-07-2018 Bilirubin, Urine Color interference, unable to perform assay. Critically abnormal Negative [facility] Comment on above: Result Comment: Sugg est correlation with clinical findings and serum bilirubin if clinically indicated. Performed By: #### U A, UAMIC #### [facility] [address] [place] [address] Clarity Nom (U) Turbid Critically abnormal Clear [facility] Comment on above: Performed By: #### U A, UAMIC #### [facility] [address] [place] [address] Color Nom (U) Red Critically abnormal Yellow [facility] Comment on above: Performed By: #### U A, UAMIC #### [facility] [address] [place] [address] Glucose Ql (U) Color interference, unable to perform assay. Critically abnormal Negative [facility] Comment on above: Performed By: #### U A, UAMIC #### [facility] [address] [place] [address] Hemoglobin/Blood,Ur Color interference, unable to perform assay. Critically abnormal Negative [facility] Comment on above: Performed By: #### U A, UAMIC #### [facility] [address] [place] [address] Ketones Ql (U) Color interference, unable to perform assay. Critically abnormal Negative [facility] Comment on above: Performed By: #### U A, UAMIC #### [facility] [address] [place] [address] Leukest Color interference, unable to perform assay. Critically abnormal Negative [facility] Comment on above: Performed By: #### U A, UAMIC #### [facility] [address] [place] [address] Nitrite Ql (U) Color interference, unable to perform assay. Critically abnormal Negative [facility] Comment on above: Performed By: #### U A, UAMIC #### [facility] [address] [place] [address] pH (Bld) Color interference, unable to perform assay. Normal 5.0-8.0 [facility] Comment on above: Performed By: #### U A, UAMIC #### [facility] [address] [place] [address] Protein mass conc (U) Color interference , unable to perform assay. Critically abnormal Negative [facility] Comment on above: Performed By: #### U A, UAMIC #### [facility] [address] [place] [address] Specific [place], Ur Color interference, unable to perform assay. Normal 1.001-1.029 [facility] Comment on above: Performed By: #### U A, UAMIC #### [facility] [address] [address] Urobilinogen Qn (U) Color interference, unable to perform assay. Normal 0.2-1.0 [facility] [facility] Comment on above: Performed By: #### U A, UAMIC #### [facility] [address] [place] [address] Urine Cultureon 08-07-2018 Bacteria identified Cx Nom (U) Sp. Request/Comment: - Specimen received in preservative Culture Result - 50,000 - <100,000 CFU/ml Normal urogenital mary Normal [facility] Comment on above: Performed By: #### C BCDIF, PT, PTT, CMP #### [facility] [address] [place] [address] Urine Microscopic (FOR LAB U SE ONLY)on 08-07-2018 Bacteria LM.HPF #/area (Urine sed) Few Critically abnormal 0 [facility] Comment on above: Performed By: #### U A, UAMIC #### [facility] [address] [place] [address] Cast SEE COMMENT Normal 0 [facility] Comment on above: Result Comment: 0 Performed By: #### U A, UAMIC #### [facility] [address] [place] [address] RBC #/vol (U) Too numerous to count Critically abnormal 0-3 [facility] Comment on above: Performed By: #### U A, UAMIC #### [facility] [address] [place] [address] WBC #/vol (Bld) 10-30 Critically abnormal 0-5 [facility] Comment on above: Performed By: #### U A, UAMIC #### [facility] [address] [place] [address] CBC with Diffon 05-30-2017 Abs. Basophil 0.00 k/uL Normal 0.0-0.2 [facility] Comment on above: Result Comment: Perf ormed at [facility] [address] [place] [address] Performed By: #### Светлана FAST, CDP, LIPR, MG, TSHX, VD25 ####[facility] [place] [address] Abs.Neutrophil (Seg) 5.80 k/uL Normal 2.1-6.5 [facility] Comment on above: Performed By: #### Светлана FAST, CDP, LIPR, MG, TSHX, VD25 ####[place] [address] [place] [address] Auto Diff Performed YES Normal [facility] Comment on above: Performed By: #### Светлана FAST, CDP, LIPR, MG, TSHX, VD25 ####[place] [address] [place] [address] Basophils/100 WBC Auto (Bld) 0 % Normal 0-2 [facility] Comment on above: Performed By: #### Светлана FAST, CDP, LIPR, MG, TSHX, VD25 ####[place] [address] [place] [address] Eosinophils 0.60 10*3/uL High 0.0-0.4 [facility] Comment on above: Performed By: #### Светлана FAST, CDP, LIPR, MG, TSHX, VD25 ####[place] [address] [place] [address] Eosinophils/100 leukocytes 6 % High 0-5 [facility] Comment on above: Performed By: #### Z FAST, CDP, LIPR, MG, TSHX, VD25 ####[place] [address] [place] [address] Erythrocyte distribution width Auto Ratio (RBC) 13.4 % Normal 12.1-15.2 [facility] Comment on above: Performed By: #### Светлана FAST, CDP, LIPR, MG, TSHX, VD25 ####[facility] [place] [address] Erythrocytes (RBC) 5.24 10*6/uL Normal 4.5-5.9 [facility] Comment on above: Performed By: #### Z FAST, CDP, LIPR, MG, TSHX, VD25 ####[facility] [place] [address] Hematocrit (HCT) 48.8 % Normal 41-53 [facility] Comment on above: Performed By: #### Светлана FAST, CDP, LIPR, MG, TSHX, VD25 ####[facility] [place] [address] Hemoglobin mass conc (Bld) 16.3 g/dL Normal 13.5-17.5 [facility] Comment on above: Performed By: #### Светлана FAST, CDP, LIPR, MG, TSHX, VD25 ####[place] [address] [place] [address] Lymphocytes 2.00 10*3/uL Normal 1.0-4.8 [facility] Comment on above: Performed By: #### Светлана FAST, CDP, LIPR, MG, TSHX, VD25 ####[facility] [place] [address] Lymphocytes/100 leukocytes 22 % Normal 13-44 [facility] Comment on above: Performed By: #### Z FAST, CDP, LIPR, MG, TSHX, VD25 ####[facility] [place] [address] MCH 31.1 pg Normal 26-34 [facility] Comment on above: Performed By: #### Z FAST, CDP, LIPR, MG, TSHX, VD25 ####[facility] [place] [address] MCHC mass conc (RBC) 33.4 g/dL Normal 31-37 [facility] Comment on above: Performed By: #### Z FAST, CDP, LIPR, MG, TSHX, VD25 ####[facility] [id number] MCV 93.2 fL Normal 80-100 [facility] Comment on above: Performed By: #### Светлана FAST, CDP, LIPR, MG, TSHX, VD25 ####[facility] [place] [address] Monocytes 0.70 10*3/uL Normal 0.0-1.0 [facility] Comment on above: Performed By: #### Светлана FAST, CDP, LIPR, MG, TSHX, VD25 ####[place] [address] [place] [address] Monocytes/100 leukocytes 8 % Normal 5-9 [facility] Comment on above: Performed By: #### Светлана FAST, CDP, LIPR, MG, TSHX, VD25 ####[facility] [place] [address] Neutrophil (Seg) 64 % Normal 39-75 [facility] Comment on above: Performed By: #### Светлана FAST, CDP, LIPR, MG, TSHX, VD25 ####[facility] [place] [address] Platelets 256 10*3/uL Normal 140-450 [facility] Comment on above: Performed By: #### Z FAST, CDP, LIPR, MG, TSHX, VD25 ####[facility] [phone] WBC (Leukocytes) 9.0 10*3/uL Normal 3.5-11.0 [facility] Comment on above: Performed By: #### Светлана FAST, CDP, LIPR, MG, TSHX, VD25 ####[facility] [place] [address] Erythrocyte morphology NOT REPORTED Normal [facility] Comment on above: Performed By: #### Z FAST, CDP, LIPR, MG, TSHX, VD25 ####[facility] [place] [address] Granulocytes/100 WBC (Bld) NOT REPORTED Normal 0.00-0.30 [facility] Comment on above: Performed By: #### Z FAST, CDP, LIPR, MG, TSHX, VD25 ####[facility] [place] [address] Immature granulocytes #/vol (Bld) NOT REPORTED Normal 0 [facility] Comment on above: Performed By: #### Светлана FAST, CDP, LIPR, MG, TSHX, VD25 ####[facility] [place] [address] Platelet mean volume (PMV) NOT REPORTED Normal 6.0-12.0 [facility] Comment on above: Performed By: #### Светлана FAST, CDP, LIPR, MG, TSHX, VD25 ####[facility] [place] [address] Platelets NOT REPORTED Normal [facility] Comment on above: Performed By: #### Светлана FAST, CDP, LIPR, MG, TSHX, VD25 ####[facility] [place] [address] WBC Morphology NOT REPORTED Normal [facility] Comment on above: Performed By: #### Z FAST, CDP, LIPR, MG, TSHX, VD25 ####[facility] [place] [address] Lipid Profileon 05-30-2017 Cholesterol 254 mg/dL High <200 [facility] Comment on above: Result Comment: Chol esterol Guidelines: <200 Desirable 200-240 Borderline >240 Undesirable Performed By: #### Z FAST, CDP, LIPR, MG, TSHX, VD25 ####[facility] [place] [address] Cholesterol to HDL Ratio 4.9 {ratio} Normal <5 [facility] Comment on above: Performed By: #### Z FAST, CDP, LIPR, MG, TSHX, VD25 ####[facility] [place] [address] HDL Cholesterol 52 mg/dL Normal >40 [facility] Comment on above: Result Comment: HDL Guidelines: <40 Undesirable 40-59 Borderline >59 Desirable Performed By: #### Z FAST, CDP, LIPR, MG, TSHX, VD25 ####[place] [address] [place] [address] LDL Cholesterol 175 mg/dL High 0-130 [facility] Comment on above: Result Comment: LDL Guidelines: <100 Desirable 100-129 Near to/above Desirable 130-159 Borderline >159 UndesirableDirect (measured) LDL and calculated LDL are not interchangeable tests. Performed By: #### Z FAST, CDP, LIPR, MG, TSHX, VD25 ####[place] [address] [place] [address] Triglyceride 136 mg/dL Normal <150 [facility] Comment on above: Result Comment: Trig lyceride Guidelines: <150 Desirable 150- 199 Borderline 200-499 High >499 Very high Based on AHA Guidelines for fasting triglyceride, March 2012.Performed at [facility] [address] [place] [address] Performed By: #### Z FAST, CDP, LIPR, MG, TSHX, VD25 ####[place] [address] [place] [address] Cholesterol in VLDL mass conc NOT REPORTED Normal 1-30 [facility] Comment on above: Performed By: #### Z FAST, CDP, LIPR, MG, TSHX, VD25 ####[facility], [place] [id number] Magnesiumon 05-30-2017 Magnesium 2.3 mg/dL Normal 1.6-2.6 [facility] Comment on above: Result Comment: Perf ormed at [facility] [address] [place], [place] [phone] Performed By: #### Z FAST, CDP, LIPR, MG, TSHX, VD25 ####[facility] [place] [phone] Patient fasting?on 7 Patient fasting? YES Normal [facility] Comment on above: Result Comment: Perf ormed at [facility] [address] [place] [address] [phone] Performed By: #### Z FAST, CDP, LIPR, MG, TSHX, VD25 ####[place] [address] [place] [phone] TSH w/reflex to FT4on 2016 Thyroid stimulating hormone (TSH) 3.87 m[IU]/L Normal 0.30-5.00 [facility] Comment on above: Result Comment: Perf ormed at [facility] [address] [place] [address] ([phone] Performed By: #### Z FAST, CDP, LIPR, MG, TSHX, VD25 ####[place] [address], [place] [id number] Vitamin D 25 OHon 05-30-2017 Vitamin D 25 [place] 35.8 ng/mL Normal 30.0-100.0 [facility] Comment on above: Result Comment: Refe rence Range:Vitamin D status Range Deficiency <20 ng/mL Mild Deficiency 20-30 ng/mL Sufficiency 30-100 ng/mL Toxicity >100 ng/mLPerformed at [facility] [address] [place] [address] [phone] Performed By: #### Z FAST, CDP, LIPR, MG, TSHX, VD25 ####[facility] [place] [address] XR CHEST STANDARD TWO VWon 1 07-31-2016 XR CHEST STANDARD TWO VW TWO-VIEW CHESTREASON FOR STUDY: History of cardiac disease, follow-up evaluation.COMPARISON : None.REPORT: Trachea, mediastinum, and heart size are unremarkable. The lungs are clear and well aerated. No effusion or pneumothorax or nodules noted. Diaphragm and bony elements are intact.IMPRESSION: Nonacute two-view chest.Interpreted by:Octavio Jarrell, DOSigned by:Octavio Jarrell, DO05/30/17Final result Normal [facility] CBC with Diffon 05-22-2017 Basophils Auto #/vol (Bld) 0.1 K/mcL Normal 0-0.2 [facility] Comment on above: Performed By: #### C BCDIF, EDCTNI, CMET, LIPASE, NTPROBNP ####Unless otherwise noted, all testing performed by [address] [phone]: [id number] Director: Carrillo Willis M.D. Basophils/100 WBC Auto (Bld) 0.9 % Normal [facility] Comment on above: Performed By: #### C BCDIF, EDCTNI, CMET, LIPASE, NTPROBNP ####Unless otherwise noted, all testing performed by [address] [phone]: [id number] Director: Carrillo Willis M.D. Eosinophils 0.2 K/mcL Normal 0-0.5 [facility] Comment on above: Performed By: #### C BCDIF, EDCTNI, CMET, LIPASE, NTPROBNP ####Unless otherwise noted, all testing performed by [address] [phone]: [id number] Director: Carrillo Willis M.D. Eosinophils/100 leukocytes 2.4 % Normal [facility] Comment on above: Performed By: #### C BCDIF, EDCTNI, CMET, LIPASE, NTPROBNP ####Unless otherwise noted, all testing performed by [address] [phone]: [id number] Director: Carrillo Willis M.D. Erythrocyte distribution width Auto Ratio (RBC) 12.8 % Normal 10-14.3 [facility] Comment on above: Performed By: #### C BCDIF, EDCTNI, CMET, LIPASE, NTPROBNP ####Unless otherwise noted, all testing performed by [place] [phone]: [id number] Director: Carrillo Willis M.D. Erythrocytes (RBC) 5.09 M/mcL Normal 4.0-5.5 [facility] Comment on above: Performed By: #### C BCDIF, EDCTNI, CMET, LIPASE, NTPROBNP ####Unless otherwise noted, all testing performed by [address] [phone]: [id number] Director: Carrillo Willis M.D. Hematocrit (HCT) 47.7 % Normal 37.9-49.2 [facility] Comment on above: Performed By: #### C BCDIF, EDCTNI, CMET, LIPASE, NTPROBNP ####Unless otherwise noted, all testing performed by [address] [phone]: [id number] Director: Carrillo Willis M.D. Hemoglobin mass conc (Bld) 16.6 g/dL Normal 12.9-16.9 [facility] Comment on above: Performed By: #### C BCDIF, EDCTNI, CMET, LIPASE, NTPROBNP ####Unless otherwise noted, all testing performed by [address] [phone]: [id number] Director: Carrillo Willis M.D. Lymphocytes 1.7 K/mcL Normal 0.9-3.6 [facility] Comment on above: Performed By: #### C BCDIF, EDCTNI, CMET, LIPASE, NTPROBNP ####Unless otherwise noted, all testing performed by [address] [phone]: [id number] Director: Carrillo Willis M.D. Lymphocytes/100 leukocytes 19.4 % Normal [facility] Comment on above: Performed By: #### C BCDIF, EDCTNI, CMET, LIPASE, NTPROBNP ####Unless otherwise noted, all testing performed by [address] [phone]: [id number] Director: Carrillo Willis M.D. MCH 32.5 pg Normal 27.7-34.6 [facility] Comment on above: Performed By: #### C BCDIF, EDCTNI, CMET, LIPASE, NTPROBNP ####Unless otherwise noted, all testing performed by [address] [phone]: [id number] Director: Carrillo Willis M.D. MCHC mass conc (RBC) 34.8 g/dL Normal 32.9-35.5 [facility] Comment on above: Performed By: #### C BCDIF, EDCTNI, CMET, LIPASE, NTPROBNP ####Unless otherwise noted, all testing performed by [address] [phone]: [id number] Director: Carrillo Willis M.D. MCV 93.6 fL Normal 82.8-99.3 [facility] Comment on above: Performed By: #### C BCDIF, EDCTNI, CMET, LIPASE, NTPROBNP ####Unless otherwise noted, all testing performed by [address] [phone]: [id number] Director: Carrillo Willis M.D. Monocytes 0.6 K/mcL Normal 0.2-0.6 [facility] Comment on above: Performed By: #### C BCDIF, EDCTNI, CMET, LIPASE, NTPROBNP ####Unless otherwise noted, all testing performed by [address] [phone]: [id number] Director: Carrillo Willis M.D. Monocytes/100 leukocytes 6.8 % Normal [facility] Comment on above: Performed By: #### C BCDIF, EDCTNI, CMET, LIPASE, NTPROBNP ####Unless otherwise noted, all testing performed by [address] [phone]: [id number] Director: Carrillo Willis M.D. Neutrophils 6.3 K/mcL Normal 1.4-6.8 [facility] Comment on above: Performed By: #### C BCDIF, EDCTNI, CMET, LIPASE, NTPROBNP ####Unless otherwise noted, all testing performed by [address] [phone]: [id number] Director: Carrillo Willis M.D. Platelet mean volume (PMV) 8.4 fL Normal 6.6-10.8 [facility] Comment on above: Performed By: #### C BCDIF, EDCTNI, CMET, LIPASE, NTPROBNP ####Unless otherwise noted, all testing performed by [address] [phone]: [id number] Director: Carrillo Willis M.D. Platelets 219 K/mcL Normal 139-354 [facility] Comment on above: Performed By: #### C BCDIF, EDCTNI, CMET, LIPASE, NTPROBNP ####Unless otherwise noted, all testing performed by [address] [phone]: [id number] Director: Carrillo Willis M.D. Segmented Neut % 70.5 % Normal [facility] Comment on above: Performed By: #### C BCDIF, EDCTNI, CMET, LIPASE, NTPROBNP ####Unless otherwise noted, all testing performed by [address] [phone]: [id number] Director: Carrillo Willis M.D. WBC (Leukocytes) 9.0 K/mcL Normal 3.6-10.4 [facility] Comment on above: Performed By: #### C BCDIF, EDCTNI, CMET, LIPASE, NTPROBNP ####Unless otherwise noted, all testing performed by [address] [phone]: [id number] Director: Carrillo Willis M.D. CHEST PA AND LATERALon 05-22 CHEST PA AND LATERAL Final ReportAccession No: [id number] Performed: May 22 2017 11:59AMExamination: CHEST PA AND LATERALLeft chest wall pain radiating into left shoulder and neck.PA and lateral chest on 05/22/2017 at 11:51 AMCardiac chest leads overlie both hemithoraces. The lungs are adequatelyinflated bilaterally and clear. There are degenerative changes involvingthe thoracic spine. Calcified atherosclerotic plaques are presentinvolving the thoracic aorta. The cardiac silhouette is normal in size.The barbra are clear bilaterally.IMPRESSIO N:1. No radiographic evidence of acute cardiac pulmonary disease.2. Senescent changes involving the thoracic aorta and thoracic spine.Interpreting Physician: JORGE GIRON D.O.Trans: : cc: Normal [facility] Comprehensive Metabolic Pane coral 05-22-2017 Alanine aminotransferase (ALT) 23 U/L Normal 14-65 [facility] Comment on above: Result Comment: This test result might be falsely depressed or falsely elevated onsamples drawn from patients taking Sulfasalazine and Sulfapyridine.Venipuncture should occur prior to taking either of these drugs. Performed By: #### C BCDIF, EDCTNI, CMET, LIPASE, NTPROBNP ####Unless otherwise noted, all testing performed by [address], [place] [phone]: [id number] Director: Carrillo Willis M.D. Albumin 4.1 g/dL Normal 3.2-5.2 [facility] Comment on above: Performed By: #### C BCDIF, EDCTNI, CMET, LIPASE, NTPROBNP ####Unless otherwise noted, all testing performed by [address] [phone]: [id number] Director: Carrillo Willis M.D. Alkaline phosphatase (ALP) 85 U/L Normal 40-150 [facility] Comment on above: Performed By: #### C BCDIF, EDCTNI, CMET, LIPASE, NTPROBNP ####Unless otherwise noted, all testing performed by [address] [phone]: [id number] Director: Carrillo Willis M.D. Aspartate aminotransferase (AST) 15 U/L Normal 0-45 [facility] Comment on above: Result Comment: This test result might be falsely depressed or falsely elevated onsamples drawn from patients taking Sulfasalazine and Sulfapyridine.Venipuncture should occur prior to taking either of these drugs. Performed By: #### C BCDIF, EDCTNI, CMET, LIPASE, NTPROBNP ####Unless otherwise noted, all testing performed by [address] [phone]: [id number] Director: Carrillo Willis M.D. Bilirubin (total) 0.4 mg/dL Normal 0.3-1.2 [facility] Comment on above: Performed By: #### C BCDIF, EDCTNI, CMET, LIPASE, NTPROBNP ####Unless otherwise noted, all testing performed by [address] [phone]: [id number] Director: Carrillo Willis M.D. Calcium 9.5 mg/dL Normal 8.4-10.2 [facility] Comment on above: Performed By: #### C BCDIF, EDCTNI, CMET, LIPASE, NTPROBNP ####Unless otherwise noted, all testing performed by [address] [phone]: [id number] Director: Carrillo Willis M.D. Chloride 104 mmol/L Normal 98-108 [facility] Comment on above: Performed By: #### C BCDIF, EDCTNI, CMET, LIPASE, NTPROBNP ####Unless otherwise noted, all testing performed by [address] [phone]: [id number] Director: Carrillo Willis M.D. CO2 29 mmol/L Normal 21-32 [facility] Comment on above: Performed By: #### C BCDIF, EDCTNI, CMET, LIPASE, NTPROBNP ####Unless otherwise noted, all testing performed by [address] [phone]: [id number] Director: Carrillo Willis M.D. Creatinine 0.91 mg/dL Normal 0.80-1.30 [facility] Comment on above: Performed By: #### C BCDIF, EDCTNI, CMET, LIPASE, NTPROBNP ####Unless otherwise noted, all testing performed by [address] [phone]: [id number] Director: Carrillo Willis M.D. eGFR (black) mL/min/{1.73_m2} Normal [facility] Comment on above: Result Comment: Afri can [place] GFR Calc Performed By: #### C BCDIF, EDCTNI, CMET, LIPASE, NTPROBNP ####Unless otherwise noted, all testing performed by [address] [phone]: [id number] Director: Carrillo Willis M.D. eGFR (non-black) mL/min/{1.73_m2} Normal [facility] Comment on above: Result Comment: Non- GFR CalceGFR is an estimated Glomerular Filtration Rate based on the valueof the patient's serum creatinine. In outpatients, eGFR should be usedas a helpful tool in screening for CKD. In inpatients or patients withacute renal failure, eGFR represents the GFR at the moment of the drawand should be used with caution. Performed By: #### C BCDIF, EDCTNI, CMET, LIPASE, NTPROBNP ####Unless otherwise noted, all testing performed by [address] [phone]: [id number] Director: Carrillo Willis M.D. Glucose mass conc 105 mg/dL High 70-99 [facility] Comment on above: Result Comment: This test result might be falsely depressed or falsely elevated onsamples drawn from patients taking Sulfasalazine and Sulfapyridine.Venipuncture should occur prior to taking either of these drugs. Performed By: #### C BCDIF, EDCTNI, CMET, LIPASE, NTPROBNP ####Unless otherwise noted, all testing performed by [address] [phone]: [id number] Director: Carrillo Willis M.D. Potassium molar conc 4.3 mmol/L Normal 3.5-5.1 [facility] Comment on above: Performed By: #### C BCDIF, EDCTNI, CMET, LIPASE, NTPROBNP ####Unless otherwise noted, all testing performed by [address] [phone]: [id number] Director: Carrillo Willis M.D. Protein 7.4 g/dL Normal 6.0-8.0 [facility] Comment on above: Performed By: #### C BCDIF, EDCTNI, CMET, LIPASE, NTPROBNP ####Unless otherwise noted, all testing performed by [address] [phone]: [id number] Director: Carrillo Willis M.D. Sodium 140 mmol/L Normal 135-145 [facility] Comment on above: Performed By: #### C BCDIF, EDCTNI, CMET, LIPASE, NTPROBNP ####Unless otherwise noted, all testing performed by [address] [phone]: [id number] Director: Carrillo Willis M.D. Urea nitrogen 16 mg/dL Normal 8-25 [facility] Comment on above: Performed By: #### C BCDIF, EDCTNI, CMET, LIPASE, NTPROBNP ####Unless otherwise noted, all testing performed by [address] [phone]: [id number] Director: Carrillo Willis M.D. ED Cardiac Troponin-Ion 12- Troponin I.cardiac mass conc ng/mL Normal < 45 [facility] Comment on above: Result Comment: Elev ation of troponin indicates some degree of myocardial necrosis butunless there is a significant rise and/or fall (if elevated) identified,it unlikely that an acute event has taken placeSamples from patients routinely receiving high dose biotin therapy(100-300 mg/day) may show falsely decreased results. Please correlateclinically. Performed By: #### C BCDIF, EDCTNI, CMET, LIPASE, NTPROBNP ####Unless otherwise noted, all testing performed by [address] [id number]: [id number] Director: Carrillo Willis M.D. Lipaseon 05-22-2017 Lipase 124 U/L Normal 73-393 [facility] Comment on above: Performed By: #### C BCDIF, EDCTNI, CMET, LIPASE, NTPROBNP ####Unless otherwise noted, all testing performed by [address] [id number]: [id number] Director: Carrillo Willis M.D. NT-Pro BNP, Serumon 05-22-20 17 BNP 52 pg/mL Normal 0-125 [facility] Comment on above: Performed By: #### C BCDIF, EDCTNI, CMET, LIPASE, NTPROBNP ####Unless otherwise noted, all testing performed by [address] [id number]: [id number] Director: Carrillo Willis M.D. Vital Signs Date Time Vital Sign Value Performing Clinician Facility 12-14-2024 10:55-0400 Body height 190.[address] Melvin Trujillo MD Work Phone: [facility] 12-14-2024 10:55-0400 Body mass index (BMI) [Ratio] 22.4 kg/m2 Dr. Melvin Trujillo MD Work Phone: [facility] 12-14-2024 10:55-0400 Body weight 81.[address] Melvin Trujillo MD Work Phone: [facility] 12-14-2024 10:55-0400 Diastolic blood pressure 76 mm[Hg] Dr. Melvin Trujillo MD Work Phone: [facility] 12-14-2024 10:55-0400 Heart rate 71 /min Dr. Melvin Trujillo MD Work Phone: [facility] 12-14-2024 10:55-0400 Respiratory rate 16 /min Dr. Melvin Trujillo MD Work Phone: [facility] 12-14-2024 10:55-0400 Systolic blood pressure 124 mm[Hg] Dr. Melvin Trujillo MD Work Phone: [facility] 10-04-2022 10:47-0400 Body height 190.[address] Melvin Trujillo Work Phone: [facility] 10-04-2022 10:47-0400 Body mass index (BMI) [Ratio] 20.7 kg/m2 Dr. Melvin Trujillo Work Phone: [phone] [place] [address] 10-04-2022 10:47-0400 Body weight 75.[address] Melvin Trujillo Work Phone: [facility] 10-04-2022 10:47-0400 Diastolic blood pressure 73 mm[Hg] Dr. Melvin Trujillo Work Phone: [facility] 10-04-2022 10:47-0400 Heart rate 68 /min Dr. Melvin Trujillo Work Phone: [facility] 10-04-2022 10:47-0400 Respiratory rate 18 /min Dr. Melvin Trujillo Work Phone: [facility] 10-04-2022 10:47-0400 SaO2% (BldA) [Mass fraction] 99 % Dr. Melvin Trujillo Work Phone: [facility] 10-04-2022 10:47-0400 Systolic blood pressure 131 mm[Hg] Dr. Melvin Trujillo Work Phone: [facility] 05-22-2022 10:28-0500 Body height 190.[address] Melvin Trujillo Work Phone: [facility] 05-22-2022 10:28-0500 Body weight 73.[address] Melvin Trujillo Work Phone: [facility] 05-21-2022 07:45-0500 Body mass index (BMI) [Ratio] 20.3 kg/m2 Dr. Melvin Trujillo Work Phone: [facility] 05-16-2022 09:22-0500 Body mass index (BMI) [Ratio] 20.3 kg/m2 Dr. Melvin Trujillo Work Phone: [facility] 05-16-2022 09:22-0500 Body weight 73.[address] Melvin Trujillo Work Phone: [facility] 05-16-2022 09:22-0500 Diastolic blood pressure 84 mm[Hg] Dr. Melvin Trujillo Work Phone: [facility] 05-16-2022 09:22-0500 Heart rate 79 /min Dr. Melvin Trujillo Work Phone: [facility] 05-16-2022 09:22-0500 Respiratory rate 16 /min Dr. Melvin Trujillo Work Phone: [facility] 05-16-2022 09:22-0500 Systolic blood pressure 142 mm[Hg] Dr. Melvin Trujillo Work Phone: [facility] 01-24-2022 08:50-0400 Body mass index (BMI) [Ratio] 20.2 kg/m2 Dr. Melvin Trujillo Work Phone: [facility] Work Phone: 01-24-2022 08:50-0400 Body temperature 97.8 [degF] Dr. Melvin Trujillo Work Phone: [facility] Work Phone: 01-24-2022 08:50-0400 Body weight 73.[address] Melvin Trujillo Work Phone: [facility] Work Phone: 01-24-2022 08:50-0400 Diastolic blood pressure 82 mm[Hg] Dr. Melvin Trujillo Work Phone: [facility] Work Phone: 01-24-2022 08:50-0400 Heart rate 79 /min Dr. Melvin Trujillo Work Phone: [facility] Work Phone: 01-24-2022 08:50-0400 Respiratory rate 17 /min Dr. Melvin Trujillo Work Phone: [facility] Work Phone: 01-24-2022 08:50-0400 SaO2% (BldA) [Mass fraction] 96 % Dr. Melvin Trujillo Work Phone: [facility] Work Phone: 01-24-2022 08:50-0400 Systolic blood pressure 149 mm[Hg] Dr. Melvin Trujillo Work Phone: [facility] Work Phone: 11-27-2021 10:31-0400 Body height 190.[address] Melvin Trujillo Work Phone: [facility] Work Phone: 11-27-2021 10:31-0400 Body mass index (BMI) [Ratio] 22.6 kg/m2 Dr. Melvin Trujillo Work Phone: [facility] Work Phone: 11-27-2021 10:31-0400 Body weight 82.[address] Melvin Trujillo Work Phone: [facility] Work Phone: 11-27-2021 10:31-0400 Diastolic blood pressure 74 mm[Hg] Dr. Melvin Trujillo Work Phone: [facility] Work Phone: 11-27-2021 10:31-0400 Heart rate 82 /min Dr. Melvin Trujillo Work Phone: [facility] Work Phone: 11-27-2021 10:31-0400 Respiratory rate 18 /min Dr. Melvin Trujillo Work Phone: [facility] Work Phone: 11-27-2021 10:31-0400 SaO2% (BldA) [Mass fraction] 94 % Dr. Melvin Trujillo Work Phone: [facility] Work Phone: 11-27-2021 10:31-0400 Systolic blood pressure 122 mm[Hg] Dr. Melvin Trujillo Work Phone: [facility] Work Phone: 08-21-2021 10:28-0400 Body height 190.[address] Melvin Trujillo Work Phone: [facility] Work Phone: 08-21-2021 10:28-0400 Body mass index (BMI) [Ratio] 23.6 kg/m2 Dr. Melvin Trujillo Work Phone: [facility] Work Phone: 08-21-2021 10:28-0400 Body weight 85.[address] Melvin Trujillo Work Phone: [facility] Work Phone: 08-21-2021 10:28-0400 Diastolic blood pressure 80 mm[Hg] Dr. Melvin Trujillo Work Phone: [facility] Work Phone: 08-21-2021 10:28-0400 Heart rate 76 /min Dr. Melvin Trujillo Work Phone: [facility] Work Phone: 08-21-2021 10:28-0400 Respiratory rate 18 /min Dr. Melvin Trujillo Work Phone: [facility] Work Phone: 08-21-2021 10:28-0400 Systolic blood pressure 138 mm[Hg] Dr. Melvin Trujillo Work Phone: [facility] Work Phone: 08-21-2021 10:28-0400 Body height 190.[address] Melvin Trujillo Work Phone: [facility] Work Phone: 08-21-2021 10:28-0400 Body mass index (BMI) [Ratio] 23.6 kg/m2 Dr. Melvin Trujillo Work Phone: [facility] Work Phone: 08-21-2021 10:28-0400 Body weight 85.[address] Melvin Trujillo Work Phone: [facility] Work Phone: 08-21-2021 10:28-0400 Diastolic blood pressure 80 mm[Hg] Dr. Melvin Trujillo Work Phone: [facility] Work Phone: 08-21-2021 10:28-0400 Heart rate 76 /min Dr. Melvin Trujillo Work Phone: [facility] Work Phone: 08-21-2021 10:28-0400 Respiratory rate 18 /min Dr. Melvin Trujillo Work Phone: [facility] Work Phone: 08-21-2021 10:28-0400 Systolic blood pressure 138 mm[Hg] Dr. Melvin Trujillo Work Phone: [facility] Work Phone: 07-27-2021 13:30-0500 Body temperature 98.2 [degF] Dr. Melvin Trujillo Work Phone: [facility] Work Phone: 07-27-2021 13:30-0500 Diastolic blood pressure 59 mm[Hg] Dr. Melvin Trujillo Work Phone: [facility] Work Phone: 07-27-2021 13:30-0500 Heart rate 67 /min Dr. Melvin Trujillo Work Phone: [facility] Work Phone: 07-27-2021 13:30-0500 Respiratory rate 14 /min Dr. Melvin Trujillo Work Phone: [facility] Work Phone: 07-27-2021 13:30-0500 SaO2% (BldA) [Mass fraction] 96 % Dr. Melvin Trujillo Work Phone: [facility] Work Phone: 07-27-2021 13:30-0500 Systolic blood pressure 103 mm[Hg] Dr. Melvin Trujillo Work Phone: [facility] Work Phone: 07-27-2021 12:30-0500 Body temperature 98.2 [degF] Dr. Melvin Trujillo Work Phone: [facility] Work Phone: 07-27-2021 12:30-0500 Diastolic blood pressure 59 mm[Hg] Dr. Melvin Trujillo Work Phone: [facility] Work Phone: 07-27-2021 12:30-0500 Heart rate 67 /min Dr. Melvin Trujillo Work Phone: [facility] Work Phone: 07-27-2021 12:30-0500 Respiratory rate 14 /min Dr. Melvin Trujillo Work Phone: [facility] Work Phone: 07-27-2021 12:30-0500 SaO2% (BldA) [Mass fraction] 96 % Dr. Melvin Trujillo Work Phone: [facility] Work Phone: 07-27-2021 12:30-0500 Systolic blood pressure 103 mm[Hg] Dr. Melvin Trujillo Work Phone: [facility] Work Phone: 07-26-2021 19:54-0500 Body mass index (BMI) [Ratio] 22.8 kg/m2 Dr. Melvin Trujillo Work Phone: [facility] Work Phone: 07-26-2021 19:54-0500 Body weight 83.[address] Melvin Trujillo Work Phone: [facility] Work Phone: 07-26-2021 18:54-0500 Body mass index (BMI) [Ratio] 22.8 kg/m2 Dr. Melvin Trujillo Work Phone: [facility] Work Phone: 07-26-2021 18:54-0500 Body weight 83.[address] Melvin Trujillo Work Phone: [facility] Work Phone: 03-06-2019 17:00-0400 Pulse (Heart Rate) 72 /min [facility] 03-06-2019 17:00-0400 Pulse Oximetry 99 % [facility] 03-06-2019 15:30-0400 Respiratory Rate 18 /min [facility] 03-06-2019 13:00-0400 BP Diastolic 82 mm[Hg] [facility] 03-06-2019 13:00-0400 BP Systolic 122 mm[Hg] [facility] 03-06-2019 12:15-0400 Body Temperature 97.59 [degF] [facility] Encounters Encounter Date Encounter Type Care Provider Facility Start: 02-28-2025 Patient encounter procedure Kade Bright LYRIC WRITER-C -Cat Scan [facility] Work Phone: Start: 02-28-2025 End: 02-28-2025 ambulatory Melvin Trujillo Facility:[facility] Start: 02-22-2025 End: 02-22-[address] Melvin Trujillo MD Work Phone: -Laboratory Start: 02-22-2025 End: 02-22-[address] Hilario Valladares MD -Laboratory Work Phone: Start: 02-22-2025 End: 02-22-2025 ambulatory Melvin Trujillo Facility:[facility] Start: 12-14-2024 End: 12-14-2024 Patient encounter procedure Chris Mirna Edwin ROMANO-C -[facility] Work Phone: Start: 12-14-2024 End: 12-14-[address] Melvin Trujillo MD Work Phone: -[facility] Start: 07-20-2024 End: 07-20-2024 ambulatory Melvin Trujillo Facility:[facility] Start: 09-23-2023 End: 09-23-2023 ambulatory [facility] Work Phone: Start: 09-23-2023 End: 09-23-2023 Patient encounter procedure [facility] Start: 05-08-2023 End: 05-08-2023 ambulatory [facility] Work Phone: Start: 05-08-2023 End: 05-08-2023 Patient encounter procedure [facility] Work Phone: Start: 01-21-2023 End: 01-21-[address] Melvin Trujillo Work Phone: [facility] Work Phone: Start: 01-21-2023 End: 01-21-[address] Melvin Trujillo Work Phone: [facility] Start: 11-26-2022 End: 11-26-[address] Melvin Trujillo Work Phone: [facility] Work Phone: Start: 11-26-2022 End: 11-26-[address] Melvin Trujillo Work Phone: [facility]-Cat Scan, [facility] Start: 11-06-2022 End: 11-06-[address] Vinayak Edmonds Facility:[id number] Start: 11-06-2022 End: 11-06-2022 Subsequent hospital visit by physician Vinayak Edmonds DO Work Phone: [facility] Comment on above: Encounter for screen ing for malignant neoplasm of colon; Polyp of colon; Essential (primary) hypertension; Pure hypercholesterolemia, unspecified; Benign prostatic hyperplasia without lower urinary tract symptoms; Chronic obstructive pulmonary disease, unspecified ([facility] Start: 10-11-2022 End: 10-11-[address] Melvin Trujillo Work Phone: [facility] Work Phone: Start: 10-11-2022 End: 10-11-[address] Melvin Trujillo Work Phone: [facility]-Laboratory Start: 10-04-2022 End: 10-04-[address] Melvin Trujillo Work Phone: [facility] Start: 07-15-2022 End: 07-15-[address] Melvin Trujillo Work Phone: [facility] Work Phone: Start: 07-15-2022 End: 07-15-[address] Melvin Trujillo Work Phone: [facility]-Laboratory Start: 06-21-2022 Non-patient / Non-visit Dr. Marshal Trujillo Work Phone: [facility] Start: 06-21-2022 Non-patient / Non-visit Dr. Marshal Trujillo Work Phone: [facility] Start: 06-21-2022 End: 06-21-[address] Melvin Trujillo Work Phone: [facility] Work Phone: Start: 06-21-2022 End: 06-21-[address] Melvin Trujillo Work Phone: [facility]-Cardiovascula r Services Start: 05-22-2022 Non-patient / Non-visit Dr. Marshal Trujillo Work Phone: [facility] Start: 05-22-2022 End: 05-22-2022 Admission to same day surgery center Dr. Melvin Trujillo Work Phone: [facility]-Chemical Checker/Special Procedures Start: 05-22-2022 End: 05-22-[address] Melvin Trujillo Work Phone: [facility] Work Phone: Start: 05-16-2022 End: 05-16-[address] Melvin Trujillo Work Phone: [facility] Work Phone: Start: 05-16-2022 End: 05-16-[address] Melvin Trujillo Work Phone: [facility]-Radiology, [facility] Start: 05-16-2022 End: 05-16-[address] Melvin Trujillo Work Phone: [facility] Start: 01-24-2022 End: 01-24-[address] Melvin Trujillo Work Phone: [facility]-Pulmonary Medicine [facility] Start: 12-04-2021 End: 12-04-[address] Melvin Trujillo Work Phone: [facility] Start: 11-28-2021 End: 11-28-[address] Melvin Trujillo Work Phone: [facility]-Cardiovascula r Services Start: 11-27-2021 End: 11-27-[address] Melvin Trujillo Work Phone: [facility] Start: 11-20-2021 End: 11-20-[address] Melvin Trujillo Work Phone: [facility]-Cat Scan, [facility] Start: 09-04-2021 End: 09-04-[address] Melvin Trujillo Work Phone: [facility]-Cardiovascula r Services Start: 08-21-2021 End: 08-21-[address] Melvin Trujillo Work Phone: [facility] Start: 07-27-2021 Non-patient / Non-visit Dr. Marshal Trujillo Work Phone: [facility] Inpatient Physicians Start: 07-27-2021 Non-patient / Non-visit Dr. Marshal Trujillo Work Phone: [facility] Start: 07-26-2021 Non-patient / Non-visit Dr. Marshal Trujillo Work Phone: [facility] Start: 07-26-2021 End: 07-27-2021 Evaluation and management of inpatient Dr. Melvin Trujillo Work Phone: [facility]-Progressive Care Unit Start: 07-17-2020 End: 07-17-2020 Orders Only Ludy Jasmyne Mitchell Work Phone: [facility] Start: 07-20-2019 End: 07-24-2019 Patient encounter procedure TYSHAWN HAYDEN [facility] Start: 03-06-2019 End: 03-06-2019 Emergency department patient visit LUIS ENRIQUE LEONG [facility] Start: 03-06-2019 End: 03-06-2019 Emergency department patient visit Yariel Stewartganga Mercado Work Phone: [facility] Department Comment on above: Chest pain, unspecif ied type (Primary Dx) Start: 08-07-2018 End: 08-07-2018 Emergency department patient visit [facility] Start: 05-30-2017 End: 05-31-2017 Amb[facility] Start: 05-22-2017 End: 05-22-2017 Emergency department patient visit Carrillo Bernal Facility:[facility] Date Procedure Procedure Detail Performing Clinician Start: 02-28-[address] Melvin arboleda MD Work Phone: Start: 02-22-2025 Prostate specific an tigen measurement Dr. Melvin Trujillo MD Work Phone: Comment on above: This test was perfor med using the [employer] tPSA method. Measured values of a patient sample can vary depending on the testing procedure used. PSA values determined on patient samples by different testing procedures cannot be used interchangeably. If there is a change in PSA assays while monitoring therapy, sequential testing should be performed to confirm baseline values. Start: 05-08-2023 Plain x-ray of pelvi s and lower extremity Start: 11-26-[address] Melvin Robison [facility] Work Phone: Start: 11-06-2022 SURGICAL PATHOLOGY RESULTS Vinayak Bushra Grey DO Work Phone: Start: 11-06-2022 Colonoscopy stoma dx including collj spec spx Melvin Trujillo MD Work Phone: Start: 11-06-2022 Colonoscopy Vinayak liu DO Work Phone: Start: 05-16-2022 Plain chest X-ray Dr. Jackie Trujillo Work Phone: Start: 11-20-[address] Melvin Robison [facility] Work Phone: Start: 07-26-2021 Plain chest X-ray Dr. Jackie Trujillo Work Phone: Start: 03-08-2019 Electrocardiogram Provi jose Not In System Start: 03-06-2019 Troponin measurement Hu ssein Katalina Egal Work Phone: Start: 03-06-2019 Standard chest X-ray Hu ssein Katalina Egal Work Phone: Start: 03-06-2019 Basic metabolic 2000 panel - Serum or Plasma Luis Enrique Katalina Egal Work Phone: Start: 03-06-2019 Complete blood count with white cell differential, automated Luis Enrique Katalina Egal Work Phone: Start: 03-06-2019 Complete blood count with white cell differential, manual Luis Enrique Katalina Egal Work Phone: Start: 03-06-2019 LAVENDER TOP Luis Enrique Wa rsame Egal Work Phone: Start: 03-06-2019 LIGHT BLUE TOP Luis Enrique Leong Egal Work Phone: Start: 03-06-2019 MINT GREEN TOP Luis Enrique Leong Egal Work Phone: Start: 03-06-2019 RAINBOW DRAW Luis Enrique Rivers rsame Egal Work Phone: Start: 03-06-2019 Troponin measurement Hu messi Leong Egal Work Phone: Start: 03-06-2019 12 lead ECG Yariel Lopez Work Phone: Start: 03-04-2019 History of placement of stent for coronary artery disease History of coronary artery stent placement Chris Pineda LYRIC WRITERShavonC Comment on above: QAK-YAC-Mbol LCx w/ 2.5 x 8 mm Elunir Stent and CATHY-Mid LAD w/ 2.5 x 12 mm Elunir Stent 03/04/2019 Start: 05-30-2017 Chest x-ray BRINDA VELA Start: 05-30-2017 CBC WITH AUTO DIFFERENTIAL BRINDA BURTON Start: 05-30-2017 Lipid panel BRINDA VELA Start: 05-30-2017 MAGNESIUM BRINDA VELA Start: 05-30-2017 PATIENT FASTING? BRINDA JALLOH Start: 05-30-2017 TSH WITH REFLEX BRINDA MAHMOOD Start: 05-30-2017 VITAMIN D 25 HYDROXY GR DEBBIE BURTON Start: 05-30-2017 EKG 12-LEAD BRINDA VELA Plan of Treatment Date Care Activity Detail Author Start: 11-06-2032 Screening for malignant neoplasm of colon [facility] Start: 02-07-2023 Influenza vaccination Influenza Vaccine (#1) [facility] Start: 07-27-2021 Patient discharge [facility] Work Phone: Start: 07-27-2021 Notification of physician [facility] Work Phone: Start: 07-27-2021 Patient education [facility] Work Phone: Start: 07-27-2021 Pulse taking [facility] Work Phone: Start: 07-27-2021 Taking patient vital signs [facility] Work Phone: Start: 07-27-2021 Wound care [facility] Work Phone: Start: 07-27-2021 [facility] Work Phone: Start: 07-26-2021 Medication not administered [facility] Work Phone: Start: 07-26-2021 End: 07-26-2021 [facility] Work Phone: Start: 07-26-2021 Following clinical pathway protocol [facility] Work Phone: Start: 07-26-2021 Assessment of risk of venous thromboembolism [facility] Work Phone: Start: 07-26-2021 End: 07-26-2021 Catheterization of vein [facility] Work Phone: Start: 07-26-2021 Incentive spirometry [facility] Work Phone: Start: 07-26-2021 Inhalation therapy procedure [facility] Work Phone: Start: 07-26-2021 Insertion of catheter into peripheral vein [facility] Work Phone: Start: 07-26-2021 Measuring intake and output [facility] Work Phone: Start: 07-26-2021 Providing care according to standard [facility] Work Phone: Start: 07-26-2021 Provision of activity privileges [facility] Work Phone: Start: 07-26-2021 Referral to electronics supervisor [facility] Work Phone: Start: 07-26-2021 Admission procedure [facility] Work Phone: Start: 02-08-2020 Influenza vaccination given Sequential Influenza Vaccine (#1) [facility] Start: 2019 Pneumococcal vaccination Pneumococcal Vaccine Age 65+ (1 of 2 - PCV13) [facility] Start: 02-07-2019 Influenza vaccination given SEQUENTIAL INFLUENZA VACCINE (#1) [facility] Start: 2004 Administration of herpes zoster vaccine Zoster Vaccines (1 of 2) [facility] Start: 2004 Screening for malignant neoplasm of colon [facility] Start: 2004 Zoster Vaccines (1 of 2) Zoster Vaccines (1 of 2) [facility] Start: 1976 DTaP/Tdap/Td Vaccines (1 - Tdap) DTaP/Tdap/Td Vaccines (1 - Tdap) [facility] Start: 1972 Hepatitis C antibody, confirmatory test Hepatitis C Screening [facility] Start: 1972 Hepatitis C screening Hepatitis C Screening [facility] Start: 1970 COVID-19 Vaccine (1 of 2) COVID-19 Vaccine (1 of 2) [facility] Start: 1966 Adolescent depression screening assessment Depression Screening (PHQ9) [facility] Start: 1960 Pneumococcal Vaccine: 65+ Years (1 - PCV) Pneumococcal Vaccine: 65+ Years (1 - PCV) [facility] Start: 1957 History and physical examination, annual for health maintenance Wellness Visit [facility] Start: 1954 COVID-19 Vaccine (#1) COVID-19 Vaccine (#1) [facility] Start: 1954 Fall risk assessment Falls Risk Assessment [facility] Start: 1954 Hepatitis C antibody, confirmatory test HEPATITIS C SCREENING [facility] Start: 1954 Lipid panel Lipid Panel [facility] Start: 1954 Prostate specific antigen measurement PSA Level [facility] Start: 1954 Screening for malignant neoplasm of colon [facility] Start: 1954 Tetanus vaccination [facility] Start: 1954 Yearly Adult Physical Yearly Adult Physical [facility] Catheterization of [facility] Work Phone: Catheterization of l [facility] Exercise tolerance test [facility] Work Phone: Measurement of respi ratory function [facility] Work Phone: Patient Education ED Chest Pain, Noncardiac [facility] Work Phone: Patient referral [facility] Work Phone: Payers Date Payer Category Payer Self-pay [id number] 2022 Unknown [id number] 2019 Medicare [id number] 2019 Medicare MEDICARE MEDICAR E PART A & B [id number] 2019-Present [place] [id number] 2014 Unknown [id number] 2011 Unknown [id number] 2011 Unknown MMO [employer] xxxxxxxxxxxx 2011-Present xxxxxxxxxxxx [id number] 2011 Unknown MMO [employer] [id number] 2011-Present [id number] 1955 Unknown [id number] 1955 Unknown [id number] 1955 Unknown [id number] 9 Unknown [id number] Unknown [id number] Unknown [id number] Unknown [id number] Social History Date Type Detail Facility Tobacco smoking status NHIS Unknown if ever smoked [facility] Start: 1955 Sex Assigned At Not on file [facility] Start: 08-21-2021 End: 10-04-2022 Tobacco smoking status NHIS Unknown if ever smoked [facility] Start: 08-26-2018 Cigarettes [facility] Start: 1955 Sex Assigned At Male [facility] Gender identity Not on file [facility] Start: 12-14-2024 Tobacco smoking status NHIS Smokes tobacco daily (finding) [facility] Medical Equipment Procedure Code Equipment Code Equipment Origin al Text Equipment Identifier Dates STENT,URETERAL 6 FR PIG 6X26 FDA Start: 08-28-2018 STENT,URETERAL 6 FR PIG 6X26 FDA Start: 08-28-2018 STENT,URETERAL 6 FR PIG 6X26 FDA Start: 08-28-2018 STENT,URETERAL 6 FR PIG 6X26 FDA Start: 08-28-2018 STENT,URETERAL 6 FR PIG 6X26 FDA Start: 08-28-2018 STENT,URETERAL 6 FR PIG 6X26 FDA Start: 08-28-2018 STENT,URETERAL 6 FR PIG 6X26 FDA Start: 08-28-2018 STENT,URETERAL 6 FR PIG 6X26 FDA Start: 08-28-2018 STENT,URETERAL 6 FR PIG 6X26 FDA Start: 08-28-2018 STENT,URETERAL 6 FR PIG 6X26 FDA Start: 08-28-2018 STENT,URETERAL 6 FR PIG 6X26 FDA Start: 08-28-2018 STENT,URETERAL 6 FR PIG 6X26 FDA Start: 08-28-2018 STENT,URETERAL 6 FR PIG 6X26 FDA Start: 08-28-2018 STENT,URETERAL 6 FR PIG 6X26 FDA Start: 08-28-2018 STENT,URETERAL 6 FR PIG 6X26 FDA Start: 08-28-2018 Functional Status Date Assessment Result Facility 07-27-2021 Functional status Ambulates;Bedrest [facility] Work Phone: 07-27-2021 Functional status Assistive Devices None [facility] Work Phone: Mental Status Date Assessment Result Facility 07-27-2021 Cognitive function Voice/Name [facility] Work Phone: Clinical Notes 03-04-2019 to 12-14-2024 Note Date & Type Note Facility 12-14-2024 Evaluation note Diagnosis Onset Date Resolution Essential (primary) hypertension chronic December 14, 2024 10:20am History of coronary artery stent placement March 04, 2019 chronic December 14, 2024 10:20am Hyperlipidemia chronic December 14, 2024 10:20am Nicotine dependence chronic December 14, 2024 10:20am [facility] Work Phone: 1(109) 167-168905-31-2023 NotePatient Name: Jaron Mireles Procedure Date: 11/06/2022 2:21 PM Date of : 1955 Admit Type: Outpatient Site: [facility] Proc RM 1 Ethnicity: Not or Race: White Attending MD: Vinayak Edmonds DO, [id number] Procedure: Colonoscopy Indications: Surveillance: Personal history of colonic polyps (unknown histology) on last colonoscopy more than 5 years ago Providers: Vinayak Edmonds DO (Doctor), Damaris Ferrari RN (Nurse), Joel Sanchez, Network Programmer Referring: Melvin Trujillo MD Medicines: Midazolam 7.5 mg IV, Meperidine 50 mg IV Complications: No immediate complications. Procedure: Pre-Anesthesia Assessment: - Prior to the procedure, a History and Physical was performed, and patient medications and allergies were reviewed. The patient is competent. The risks and benefits of the procedure and the sedation options and risks were discussed with the patient. All questions were answered and informed consent was obtained. Patient identification and proposed procedure were verified by the physician in the pre-procedure area. Mental Status Examination: alert and oriented. Airway Examination: normal oropharyngeal airway and neck mobility. Respiratory Examination: clear to auscultation. CV Examination: normal. Prophylactic Antibiotics: The patient does not require prophylactic antibiotics. Prior Anticoagulants: The patient has taken no anticoagulant or antiplatelet agents. ASA Grade Assessment: II - A patient with mild systemic disease. After reviewing the risks and benefits, the patient was deemed in satisfactory condition to undergo the procedure. The anesthesia plan was to use moderate sedation / analgesia (conscious sedation). Immediately prior to administration of medications, the patient was re-assessed for adequacy to receive sedatives. The heart rate, respiratory rate, oxygen saturations, blood pressure, adequacy of pulmonary ventilation, and response to care were monitored throughout the procedure. The physical status of the patient was re-assessed after the procedure. After I obtained informed consent, the scope was passed under direct vision. Throughout the procedure, the patient's blood pressure, pulse, and oxygen saturations were monitored continuously. The pediatric colonoscope was introduced through the anus and advanced to the cecum, identified by appendiceal orifice and ileocecal valve. The colonoscopy was performed without difficulty. The patient tolerated the procedure well. The quality of the bowel preparation was good. The ileocecal valve, appendiceal orifice, and rectum were photographed. Findings: The perianal and digital rectal examinations were normal. Pertinent negatives include normal sphincter tone and no palpable rectal lesions. A 3 mm polyp was found in the recto-sigmoid colon. The polyp was sessile. The polyp was removed with a cold biopsy forceps. Resection and retrieval were complete. The exam was otherwise without abnormality on direct and retroflexion views. Moderate Sedation: Moderate (conscious) sedation was administered by the nurse and supervised by the endoscopist. The following parameters were monitored: oxygen saturation, heart rate, blood pressure, and response to care. Total physician intraservice time was 28 minutes. Estimated Blood Loss: Estimated blood loss: none. Impression: - One 3 mm polyp at the recto-sigmoid colon, removed with a cold biopsy forceps. Resected and retrieved. - The examination was otherwise normal on direct and retroflexion views. Recommendation: - Patient has a contact number available for emergencies. The signs and symptoms of potential delayed complications were discussed with the patient. 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 Essential (primary) hypertension chronic Hyperlipidemia chronic History of coronary artery stent placement February 082018 resolved Fatigue acute Essential (primary) hypertension chronic Hyperlipidemia chronic History of coronary artery stent placement February 082018 resolved [facility] Work Phone: 1(152) 868-482109-26-2019 Evaluation note* Diagnosis Onset Date Resolution Status Nicotine dependence chronic Obstructive Sleep Apnea-Hypopnea Syndrome noneactive Chest pain acute Hyperlipidemia chronic History of coronary artery stent placement February 082018 resolved [facility] Work Phone: 1(690) 826-298909-26-2019 Evaluation note* Diagnosis Onset Date Resolution Status Chest pain acute Hyperlipidemia chronic History of coronary artery stent placement February 082018 resolved [facility] Work Phone: 1(624) 839-838209-26-2019 Evaluation note* Diagnosis Onset Date Resolution Status Essential (primary) hypertension chronic History of coronary artery stent placement February 082018 chronic Hyperlipidemia chronic [facility] Work Phone: 1(104) 269-159909-26-2019 Evaluation note* Diagnosis Onset Date Resolution Status Admit Date Essential (primary) hypertension chronic December 14, 2024 10:20am History of coronary artery stent placement March 04, 2019 chronic December 14, 025 10:20am Hyperlipidemia chronic December 14, 2024 10:20am Nicotine dependence chronic December 14, 2024 10:20am [facility] Work Phone: Evaluation note* Diagnosis Onset Date Resolution Status Chest pain acute 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 Essential (primary) hypertension chronic Hyperlipidemia chronic History of coronary artery stent placement February 082018 resolved [facility] Work Phone: Evaluation note* Diagnosis Encounter for screening for malignant neoplasm of colon Polyp of colon Benign neoplasm of colon Essential (primary) hypertension Unspecified essential hypertension Pure hypercholesterolemia, unspecified Benign prostatic hyperplasia without lower urinary tract symptoms Chronic obstructive pulmonary disease, unspecified (CMS/HCC) documented in this encounter [facility] Work Phone: Evaluation noteNo assessment information available [facility] Work Phone: Reason for referral (narrative)No reason for referral [facility] Work [facility]: Summary Purpose Family History No Family History Records Found Relationship Condition Age at Onset Recorded Date/T izaiah brother Cerebrovascular accident (CVA) Unknown Diabetes mellitus Unknown sister Diabetes mellitus Unknown Hypertension Unknown son Hypertension Unknown father Myocardial infarction 41 Advance Directives No Advanced Directives Records FoundDocuments on File Type Date Recorded Patient Firer Helper Expl anation Advance Directives and Livin g Will 03/06/2019 1:04 PM Advance Directive Response Recorded Date/ Time Advance Directives Yes March 12, 2019 9:06am Living Will Yes July 26, 2 022 8:54pm Power of Tool And Cutter Grinder Yes July 26, 2021 8:54pm Advance Directive Response Recorded Date/ Time Name of Medical Power of Tool And Cutter Grinder Kenzie Mireles - July 26, 2021 8:54pm Advance Directives Yes March 12, 2019 9:06am Living Will Yes July 26 8:54pm Power of Tool And Cutter Grinder Yes July 26, 2021 8:54pm Advance Directive Response Recorded Date/ Time Advance Directives on File Yes Decem 2021 10:28am Name of Medical Power of Tool And Cutter Grinder Claudia Mireles-w gurpreet May 22, 2022 10:28am Advance Directives Yes May 10:28am Living Will Yes May 22 10:28am Power of Tool And Cutter Grinder Yes May 22, 2022 10:28am Advance Directive Response Recorded Date/ Time Advance Directives Yes May 11:28am Living Will Yes May 22 11:28am Power of Tool And Cutter Grinder Yes May 22, 2022 11:28am Advance Directive Response Recorded Date/ Time Advance Directives Yes May 10:28am Living Will Yes May 22 10:28am Power of Tool And Cutter Grinder Yes May 22, 2022 10:28am Advance Directive Response Recorded Date/ Time Living Will Yes May 22 11:28am Do you have a Healthcare Power of Tool And Cutter Grinder? Yes May 22, 2022 11:28am Advance Directives Yes May 11:28am Discharge Instructions * Instructions* Luis Enrique Hollis MD - 03/06/2019 If he having persistent chest pain or persistent shortness of breath return to ER Otherwise consult with your primary care physician or electronics supervisor Friday for further care regarding a chest pain episode of unclear cause documented in this encounter Assessments Diagnosis Chest pain, unspecified type- Primary Chief Complaint and Reason for Visit Chief Complaint Admit Date 1 Y FU December 14, 2024 10:20 am TOBACCO ABUSE February 28, 2025 12:50pm Reason for Visit Admit Date Essential (primary) hypertension December 10:20am History of coronary artery stent placeme nt December 14, 2024 10:20am Hyperlipidemia December 14, 2024 10:20 am Nicotine dependence December 14, 2024 10:20 am Chief Complaint CHEST PAIN CHEST PAIN CHEST PAIN CHEST PAIN CHEST PAIN 3wk fu CAD Reason for Visit Chest pain 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 pectoris Essential (primary) hypertension Hyperlipidemia History of coronary artery stent placement Chief Complaint CHEST PAIN CHEST PAIN CHEST PAIN CHEST PAIN CHEST PAIN 3wk fu CAD NICOTINE DEPENDENCE Reason for Visit Chest pain 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 pectoris Essential (primary) hypertension Hyperlipidemia History of coronary artery stent placement Chief Complaint 3wk fu CAD NICOTINE DEPENDENCE 3 M FU Peripheral vascular disease, unspecified Reason for Visit Atherosclerotic hear t disease [place] coronary artery w/angina pectoris Essential (primary) hypertension Hyperlipidemia History of coronary artery stent placement Fatigue Essential (primary) hypertension Hyperlipidemia History of coronary artery stent placement Chief Complaint Sleep apnea 1 Y FU CHEST PAIN, SOB Amb Documentation Reason for Visit Nicotine dependence Obstructive Sleep Apnea-Hypopnea Syndrome Chest pain Hyperlipidemia History of coronary artery stent placement Chief Complaint 1 Y FU CHEST PAIN, SOB Amb Documentation Reason for Visit Chest pain Hyperlipidemia History of coronary artery stent placement Chief Complaint 1 Y FU CHEST PAIN, SOB Amb Documentation PERICARDIAL MASS Amb Documentation Reason for Visit Chest pain Hyperlipidemia History of coronary artery stent placement Chief Complaint PERICARDIAL MASS Amb Documentation 3 M FU E-ORDER Reason for Visit Essential (primary) hypertension History of coronary artery stent placement Hyperlipidemia Chief Complaint 3 M FU E-ORDER NICOTINE DEPENDENCE Reason for Visit Essential (primary) hypertension History of coronary artery stent placement Hyperlipidemia Chief Complaint Admit Date 1 Y FU December 14, 2024 10:20 am Additional Source Comments (unrecognized sect ion and content) No Status Records FoundNo Status Records FoundNo Status Records FoundNo Status Records FoundNo Status Records FoundNo Status Records FoundNo Status Records Found INFORMATION SOURCE (unrecogn ized section and content) DATE CREATED AUTHOR 11/27/2017 [facility] DATE CREATED AUTHOR AUTHOR'S ORGANIZ ATION 12/02/2017 [facility] DATE CREATED AUTHOR AUTHOR'S ORGANIZ ATION 08/10/2018 [facility] DATE CREATED AUTHOR AUTHOR'S ORGANIZ ATION 07/24/2019 [facility] DATE CREATED AUTHOR AUTHOR'S ORGANIZ ATION 11/19/2022 [facility] DATE CREATED AUTHOR AUTHOR'S ORGANIZ ATION 11/19/2022 [facility] DATE CREATED AUTHOR AUTHOR'S ORGANIZ ATION 04/02/2025 [facility] Reason for Visit (unrecogniz ed section and content) Reason Comments Chest Pain Reason Comments Other Encounter for screen ing for malignant neoplasm of colon Amy Elizalde RN - 03/06/2019 5:20 PM EDTAmy Elizalde RN - 03/06/2019 1:03 PM Amy Leroy RN - 03/06/2019 12:19 PM EDTEgalLuis Enrique MD - 03/06/2019 12:13 PM EDT ED Notes (unrecognized secti on and content) Ambulated patient length of hallway. Oxygen maintaining at 100% on RA & a heart rate of 76. Dr. Hollis made aware. Troponin result of 52 readback to Deborah. PT REPOTS THAT HE GOT STENTS PLACED ON AND THEN STARTED HAVING CP AROUND 2AM THIS MORNING. PT. TOOK X2 NTG AND X3 ASA AT HOME. ED PROVIDER NOTE [facility] EMERGENCY DE[facility]MENT NAME: Jaron Mireles AGE: 63 y.o. : 1955 VISIT DATE: 03/06/2019 CSN: [id number] PCP: Melvin Trujillo MD Chief Complaint Patient presents with Chest Pain Is a 63-year-old with known coronary artery disease who states he just had 2 stents placed at [facility] this week coming to the emergency room concerning about acute pounding of my heart which started while he was sitting on his deck doing nothing associated with chest pressure. Patient states he had taken 3 aspirins and 2 nitroglycerin before he came to the emergency room and by the time he is examined is completely asymptomatic. He does not recall having had a fatigue or shortness of breath associated with this. He denies leg pain or leg swelling. He also denies history of DVT or PE. No fever, cough, chills, nausea vomiting or diaphoresis reported No past medical history on file. No past surgical history on file. No family history on file. Social History Socioeconomic History Marital status: Spouse name: Not on file Number of children: Not on file Years of education: Not on file Highest education level: Not on file Occupational History Not on file Social Needs Financial resource strain: Not on file Food insecurity: Worry: Not on file Inability: Not on file Transportation needs: Medical: Not on file Non-medical: Not on file Tobacco Use Smoking status: Not on file Substance and Sexual Activity Alcohol use: Not on file Drug use: Not on file Sexual activity: Not on file Lifestyle Physical activity: Days per week: Not on file Minutes per session: Not on file Stress: Not on file Relationships Social connections: Talks on phone: Not on file Gets together: Not on file Attends zoroastrianism service: Not on file Active member of club or organization: Not on file Attends meetings of clubs or organizations: Not on file Relationship status: Not on file Other Topics Concern Not on file Social History Narrative Not on file Previous Medications Medication Sig aspirin 81 MG EC tablet Take 81 mg by mouth daily . BRILINTA 90 mg Tab tablet Take 90 mg by mouth 2 (two) times a day . famotidine (PEPCID) 40 MG tablet Take 40 mg by mouth daily as needed . ipratropium (ATROVENT) 0.03 % nasal spray Instill 1-2 sprays into each nostril every 6 (six) hours as needed . lansoprazole (PREVACID) 30 MG capsule Take 30 mg by mouth daily . multivitamin (THERAGRAN) per tablet Take 1 tablet by mouth daily . nitroGLYCERIN (NITROSTAT) 0.[address] 0.4 mg under the tongue every 5 (five) minutes as needed for chest pain . ubidecarenone (CO Q-10 ORAL) Take 1 tablet by mouth daily . atorvastatin (LIPITOR) 40 MG tablet Take 40 mg by mouth daily . buPROPion (WELLBUTRIN SR) 150 MG 12 hr tablet Take 150 mg by mouth 2 (two) times a day . [DISCONTINUED] cetirizine (ZYRTEC) 10 MG tablet Take 10 mg by mouth daily . [DISCONTINUED] pitavastatin calcium (Livalo) 4 mg Tab Take 4 mg by mouth daily . No Known Allergies Review of Systems Constitutional: Negative for chills, fatigue and fever. Respiratory: Negative for shortness of breath. Cardiovascular: Positive for chest pain and palpitations. All other systems reviewed and are negative. Patient Vitals for the past 24 hrs: BP Temp Pulse Resp SpO2 03/06/19 1700 72 99 % 03/06/19 1530 65 18 98 % 03/06/19 1300 122/82 64 98 % 03/06/19 1215 128/81 97.6 F (36.4 C) 69 18 97 % Physical Exam Vitals signs and nursing note reviewed. Constitutional: General: He is not in acute distress. Appearance: Normal appearance. He is not ill-appearing, toxic-appearing or diaphoretic. HENT: Head: Normocephalic and atraumatic. Neck: Musculoskeletal: Normal range of motion and neck supple. No neck rigidity or muscular tenderness. Vascular: No carotid bruit. Cardiovascular: Rate and Rhythm: Normal rate and regular rhythm. Pulses: Normal pulses. Heart sounds: Normal heart sounds. No murmur. No friction rub. Pulmonary: Effort: Pulmonary effort is normal. No respiratory distress. Breath sounds: Normal breath sounds. No stridor. No wheezing, rhonchi or rales. Chest: Chest wall: No tenderness. Abdominal: General: Abdomen is flat. Bowel sounds are normal. There is no distension. Palpations: Abdomen is soft. There is no mass. Tenderness: There is no tenderness. There is no right CVA tenderness, left CVA tenderness, guarding or rebound. Hernia: No hernia is present. Musculoskeletal: Normal range of motion. General: No swelling, tenderness, deformity or signs of injury. Right lower leg: No edema. Left lower leg: No edema. Lymphadenopathy: Cervical: No cervical adenopathy. Skin: General: Skin is warm and dry. Neurological: General: No focal deficit present. Mental Status: He is alert and oriented to person, place, and time. Laboratory & Radiographic Imaging (if done): Results for orders placed or performed during the hospital encounter of 03/06/19 Lavender Top Result Value Ref Range Extra Tube Hold for add-ons. Mint Green Top Result Value Ref Range Extra Tube Hold for add-ons. Light Blue Top Result Value Ref Range Extra Tube Hold for add-ons. BMP Result Value Ref Range Sodium 141 135 - 145 mmol/L Potassium 4.0 3.5 - 5.1 mmol/L Chloride 106 98 - 108 mmol/L Bicarbonate 27 21 - 32 mmol/L Anion Gap 12 10 - 20 mmol/L Glucose 134 (H) 65 - 99 mg/dL BUN 16 8 - 25 mg/dL Creatinine 1.02 0.80 - 1.30 mg/dL eGFR 77 >=60 mL/min/1.73 m2 BUN/Creatinine Ratio 15.7 10.0 - 20.0 Calcium 9.2 8.4 - 10.2 mg/dL Troponin x 2 (Now and Repeat in 3 hours) Result Value Ref Range Troponin I 52 (CH) <=45 ng/L Troponin I Interpretation Possible acute cardiac injury. Troponin x 2 (Now and Repeat in 3 hours) Result Value Ref Range Troponin I 62 (CH) <=45 ng/L Delta % Troponin I 19 <20% of Baseline Troponin % Interp Troponin I Delta Change Probable non-acute cardiac injury or late presentation of acute injury. CBC Auto Differential Result Value Ref Range WBC 9.76 4.50 - 11.00 K/mcL RBC 4.70 4.50 - 5.90 M/mcL Hemoglobin 15.0 13.5 - 17.5 g/dL Hematocrit 43.5 41.0 - 53.0 % MCV 92.6 80.0 - 100.0 fL MCH 31.9 26.0 - 34.0 pg MCHC 34.5 31.0 - 37.0 g/dL Platelets 256 150 - 400 K/mcL RDW - CV 12.7 11.6 - 14.8 % MPV 10.5 9.0 - 15.5 fL Neutrophils 70.3 % Lymphocytes 19.4 % Monocytes 6.5 % Eosinophils 2.7 % Basophils 0.6 % IG Percent 0.50 % Neutrophils Abs 6.87 1.70 - 7.00 K/mcL Lymphocytes Abs 1.89 0.90 - 4.00 K/mcL Monocytes Abs 0.63 0.30 - 0.90 K/mcL Eosinophils Abs 0.26 0.00 - 0.50 K/mcL Basophils Abs 0.06 0.00 - 0.30 K/mcL IG Absolute 0.05 0.00 - 0.30 K/mcL Nucleated RBC 0.0 % Nucleated RBC Abs 0.00 0.00 - 0.00 K/mcL XR Chest AP/PA and LAT Preliminary Result No acute cardiopulmonary process. Persistent mild flattening of the hemidiaphragms suggest mild emphysema. SDH/lab Workstation ID: [id number] Procedures MDM Number of Diagnoses or Management Options Chest pain, unspecified type: Diagnosis management comments: This gentleman has a history of known coronary artery disease and states he had 2 stents placed in his coronaries this past at . Today he developed pounding heart rate with some chest pressure which is completely resolved by the time he arrived in the emergency room. Patient remained asymptomatic throughout his emergency room stay. He denied having shortness of breath or exertional fatigue. No leg pain or leg swelling. No prior history of DVT or PE. Patient states he was not told that he had any partially blocked coronary arteries or the occluded coronary arteries that could not be stented. EKG reveals normal sinus rhythm with ventricular rate of 76 bpm with QTC of [address] changes. Initial troponin is minimally elevated at 51 and other basic labs as well as chest x-ray are unremarkable. Delta troponin is 62. This is not a significant change and is not consistent with acute myocardial infarction. Patient vitals remained stable. He is able to ambulate with his oxygen saturation stating 100% and heart rate of 74 bpm without exertional fatigue lightheadedness or dizziness. No chest pain during exertion. 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 The patient has been informed that they may have pre-hypertension or hypertension based on a blood pressure reading in the Emergency Department. I recommend that the patient call the primary care provider listed on their discharge instructions or a physician of their choice as soon as possible to arrange follow-up in the next 4 weeks for further evaluation of possible pre-hypertension or hypertension. . Clinical Impression: 1. Chest pain, unspecified type ED Disposition ED Disposition Condition Comment Discharge Stable Jaron Mireles discharged to home/self care in stable condition. Follow-up Information Follow-up information has not been specified. Contact information for after-discharge care Follow-up information has not been specified. Discontinued Medications Disp Refills Start End cetirizine (ZYRTEC) 10 MG tablet 03/06/2019 Class: Historical Med Reason for Discontinue: Error pitavastatin calcium (Livalo) 4 mg Tab 12/27/2018 03/06/2019 Class: Historical Med Reason for Discontinue: Error Luis Enrique Hollis MD 03/06/19 [id number] Luis Enrique Hollis MD 03/06/19 1748 Bed: 15 Expected date: 03/06/19 Expected time: 11:52 AM Means of arrival: Ambulance Comments: JACKIECATARINOGIOVANI NILS documented in this encounter Goals (unrecognized section and content) Goals may be documented in a n alternate sectionGoals may be documented in an alternate sectionGoals may be documented in an alternate sectionGoals may be documented in an alternate sectionGoals may be documented in an alternate sectionGoals may be documented in an alternate sectionGoals may be documented in an alternate sectionGoals may be documented in an alternate sectionGoals may be documented in an alternate sectionGoals may be documented in an alternate sectionGoals may be documented in an alternate sectionGoals may be documented in an alternate sectionGoals may be documented in an alternate sectionGoals may be documented in an alternate sectionGoals may be documented in an alternate section Care Teams (unrecognized sec tion and content) Team Status: Active Member Role Status Dates Dr. Melvin Trujillo MD Family Provider Active Dr. Melvin Trujillo MD Primary Care Provider Active Team Status: Inactive Member Role Status Dates Dr. Melvin Trujillo MD Primary Care Provider, Referring P rovider Active Dr. Keith Azevedo MD Attending Provider Active Team Status: Active Member Role Status Dates Dr. Melvin Trujillo MD Primary Care Provider Active Chris Pineda LYRIC WRITER, LYRIC WRITER-C Attending Provider Active Team Status: Active Member Role Status Dates Dr. Melvin Trujillo MD Primary Care Provider Active Dr. Keith Azevedo MD Attending Provider Active Team Status: Inactive Member Role Status Dates Dr. Melvin Trujillo MD Primary Care Provider Active Chris Pineda LYRIC WRITER, LYRIC WRITER-C Attending Provider Active Team Status: Inactive Member Role Status Dates Dr. Melvin Trujillo MD Primary Care Provider Active Dr. Keith Azevedo MD Attending Provider, Referring Pro vider Active Team Status: Inactive Member Role Status Dates Dr. Melvin Trujillo MD Primary Care Provider Active Dr. Hilario Valladares MD Attending Provider, Referr ing Provider Active Team Status: Inactive Member Role Status Dates Dr. Melvin Trujillo MD Primary Care Provider, Referring P rovider Active Elsy Briceno LYRIC WRITER, LYRIC WRITER-C Active Chris H Roof LYRIC WRITER, LYRIC WRITER-C Attending Provider Active Team Status: Inactive Member Role Status Dates Dr. Melvin Trujillo MD Primary Care Provider Active Chris Pineda LYRIC WRITER, LYRIC WRITER-C Attending Provider, Referring Pro vider Active Team Status: Inactive Member Role Status Dates Dr. Melvin Trujillo MD Primary Care Provide r, Attending Provider, Referring Provider Active Chris Pineda LYRIC WRITER, LYRIC WRITER-C Other Provider Active Team Status: Inactive Member Role Status Dates Dr. Melvin Trujillo MD Primary Care Provider, Attending Florence quach Active [employer] Relationship Specialty Start Date End Date Melvin Trujillo MD [address] [place] [address] PCP - General 11/06/22 Team Status: Inactive Member Role Status Dates Dr. Melvin Trujillo MD Primary Care Provide r, Attending Provider, Referring Provider Active Team Status: Active Member Role/Relationship Status Dates Dr. Melvin Trujillo MD Family Provider Active Dr. Melvin Trujillo MD Primary Care Provider Active Team Status: Inactive Member Role/Relationship Status Dates Dr. Melvin Trujillo MD Primary Care Provider Active Start: December 14, 2024 End: December 14, 2024 Dr. Melvin Trujillo MD Referring Provider Active St art: December 14, 2024 End: December 14, 2024 Chris Pineda LYRIC WRITER, LYRIC WRITER-C Attending Provider Active S tart: December 14, 2024 End: December 14, 2024 Team Status: Active Member Role/Relationship Status Dates Dr. Melvin Trujillo MD Primary care physician Active Team Status: Inactive Member Role/Relationship Status Dates Dr. Melvin Trujillo MD Primary care physician Active Start: December 14, 2024 End: December 14, 2024 Dr. Melvin Trujillo MD Referring Provider Active St art: December 14, 2024 End: December 14, 2024 Chris Pineda LYRIC WRITER, LYRIC WRITER-C Attending physician Active Start: December 14, 2024 End: December 14, 2024 Team Status: Inactive Member Role/Relationship Status Dates Dr. Melvin Trujillo MD Primary care physician Active Start: February 22, 2025 End: February 22, 2025 Dr. Hilario Valladares MD Attending physician Active Start: February 22, 2025 End: February 22, 2025 Dr. Hilario Valladares MD Referring Provider Active Start: February 22, 2025 End: February 22, 2025 Team Status: Active Member Role/Relationship Status Dates Dr. Melvin Trujillo MD Primary care physician Active Start: February 28, 2025 DENISE Petty NP Attending physician Active Start: February 28, 2025 DENISE Petty NP Referring Provider Active Start: February 28, 2025 FOR RECORDS PERTAINING TO PATIENTS WHO ARE OR HAVE BEEN ENROLLED IN A CHEMICAL DEPENDENCY/SUBSTANCEABUSE PROGRAM, SOME INFORMATION MAY BE OMITTED. This clinical summary was aggregated from multiple sources. Caution should be exercised in using it in the provision of clinical care. This summary normalizes information from multiple sources, and as a consequence, information in this document may materially change the coding, format and clinical context of patient data. In addition, data may be omitted in some cases. CLINICAL DECISIONS SHOULD BE BASED ON THE PRIMARY CLINICAL RECORDS. [employer] [facility]. provides no warranty or guarantee of the accuracy or completeness of information in this document.
[2025-04-30 16:29] LABS: Glucose, Dipstick Normal (Normal); Ketone-Dipstick Negative (Negative); Leukocyte Esterase-Dipstick 25 /ul (Negative); Nitrite-Dipstick Negative (Negative); Occult Blood-Urine 250 /ul (Negative); Protein-Dipstick 500 mg/dl (Negative); Specific Gravity, Urine 1.015 (1.002-1.030); Urine Bilirubin Dipstick Negative (Negative)
[2025-04-30] MEDS: 0.9% Normal Saline (1000mL) 1,000 ML 999 ML IV (16:37)
[2025-04-30 16:42] LABS: Color, Urine AMBER (Yellow)
[2025-04-30 16:52] LABS: Anion Gap 8 (5-15); BUN 22 mg/dL (4-19); BUN/Creat Ratio 20.1 RATIO (10-20); Calcium,Total 9.0 mg/dL (7.6-11.0); Carbon Dioxide 28.4 mmol/L (21.0-32.0); Chloride 104 mmol/L (98-108); Estimated Creatinine Clearance 72.05 ml/min (50-250); Glucose 119 mg/dL (70-99); Potassium 4.2 mmol/L (3.3-5.1)
[2025-04-30 16:56] LABS: Mucous, Urine RARE /hpf (<or=2+); Red Blood Cells-Urine > 100 SEEN /hpf (0-5); Squamous Epithelial Cells - UA 0-5 SEEN /hpf (0-5)
--- NOTE | 2025-04-30 19:28 | ED.RN ---
pt unaware of home meds
--- OUTSIDE RECORDS SUMMARY | 2025-04-30 19:47 | XMS RPT_ITS | CCD ---
Author Organization [facility] [place] [facility] Team Providers Care Medical Appointment Scheduler Name Role Phone Carrillo Bernal Unavailable Unavailable [...] Provider Dr. Berenice Chavez Admit Provider Dr. Berneice Chavez Attending Provider Dr. Berenice Chavez Other Provider Dr. Harriet Osborne Other Provider Dr. Harriet Osborne Attending Provider Dr. Berenice Chavez Referring Provider Dr. Castro Osborne Other Provider Dr. Castro Osborne Attending Provider Dr. Melvin Trujillo Referring Provider Janak ROMANO, DENISE Chin Attending Provider Dr. Melvin Trujillo Primary Care Provider Dr. Melvin Turjillo Primary Care Provider Dr. Melvin Trujillo Referring Provider Wynne LOAN ADVISER, LOAN ADVISER-C [place] Attending Provider Dr. Keith Azevedo Attending Provider Roof LOAN ADVISER, LOAN ADVISER-C Chris Bradley Attending Provider Dr. Melvin Trujillo Primary Care Provider Dr. Melvin Trujillo Referring Provider Dr. Melvin Trujillo Primary Care Provider Dr. Keith Azevedo Attending Provider Roof LOAN ADVISER, LOAN ADVISER-C Chris Bradley Attending Provider Dr. Melvin Trujillo Referring Provider Dr. Vinayak Edmonds Attending Unavailable Dr. Melvin Trujillo Primary Care Unavailable Dr. Melvin Trujillo Referring Unavailable Dr. Vinayak Edmonds Admitting Unavailable Dr. Melvin Trujillo Primary Care Provider Edwin LOAN ADVISER, LOAN ADVISER-C Chris Bradley Attending Provider Melvin Trujillo MD Primary Care Provider Dr. Melvin Trujillo MD Primary Care Provider Dr. Melvin Trujillo MD Referring Provider Edwin LOAN ADVISER-CChris Attending Provider Dr. Melvin Trujillo MD Primary Care Physician Edwin LOAN ADVISER-C, Chris Bradley Attending Physician Blaine TABARES, Dr. Hilario Garcia Attending Physician Blaine TABARES, Dr. Hilario Garcia Ref[facility]-CKade Attending Physician Alidaorrow LOAN ADVISER-CKade Referring Provider Melvin Trujillo Primary Care Unavailable Alidaorrow LOAN ADVISERKade Attending Unavailable [facility] Kade ROMANO Referring Unavailable Melvin Trujillo Primary [...] nasa l route three times daily Ipratropium [place] Active 2 SPRAY INTRANASAL THREE TIMES A [...] sources) Start: 05-16-2020 take 1 capsule by [facility] once daily Completed/Discontinued Medications Medication Drug [...] 9:34am Start: 08-26-2018 End: 02-26-2019 Famotidine-Ca Carb-Mag [place] x Discontinued 1 - 2 EACH PO [...] 20, 2022 4:21pm December 16, 2023 9:58am Vdkriwvm-Gaz-Qxuts -Vit K-Lycop (One-A-Day Men's Multivitamin) 400-20-300 mcg tablet (13 sources) Start: 11-27-2021 End: 12-14-2024 Lwhxmjfd-Evb-Npxfg- Vit K-Lycop (One-A-Day Men's Multivitamin) 400-20-300 mcg tablet Discontinued 1 {tbl} PO DAILY November 27, 2021 12:00am December 14, 2024 11:02am Start: 11-27-2021 take 1 tablet by elizabeth once daily Keeddkpk-Nhf-Livpy-Vit K-Lycop (One-A-Da y Men's Multivitamin) 400-20-300 mcg tablet Active 1 TABLET PO DAILY November 27, 2021 12:00am Start: 11-27-2021 take 1 tablet by elizabeth th once daily Hjjhecil-Cqw-Bveqo-Vit K-Lycop (-A Men's Multivitamin) 400-20-300 mcg tablet Active 1 TABLET PO DAILY November 26, 2021 11:00pm Start: 11-27-2021 take 1 tablet by elizabeth th once Rwwmvzbd-Ssz-Pcduj-Vit K-Lycop (-A Men's Multivitamin) 400-20-300 mcg tablet [...] disease (20 sources) Atherosclerotic heart disease of [place] coronary artery without angina pectoris; Translations: [Coronary [...] Screeningon 02-28-[address] Lung Screening [facility] Services [address] [place] [address] Lung Screening MR#: [id number] Acct: [id number] Name: JARON MIRELES Rep #: [id number] : 1955 M 69 From: Blaine Loja MD PCP: Dr. Melvin Trujillo MD Status: REG CLI Study: Low Dose CT Lung Screening Date of Exam: 02/28 Exam# [id number] Ordering Dr: Kade Novoa NP LOAN ADVISER -C PROCEDURE: LOW DOSE CT LUNG SCREENING 02/28/2025 REASON FOR EXAM: TOBACCO ABUSUSE TECHNIQUE: Procedure Code: CTLUNGSCREEN Modality: CT Procedure: LOW DOSE CT LUNG SCREENING Coronal and Sagittal reconstruction series were provided. One or more dose reduction techniques were used (e.g., Automated exposure control, adjustment of the mA and/or kV according to patient size, use of iterative reconstruction technique). REFERENCE LINK: Filement Lung-RADS RADIATION DOSE SUMMARY: CTDlvol: 3.0 mGy [...] SCREENING LDCT. Other Significant Findings: Reading Location: [id number] CC: Kade ROMANO NP-Alondra Irwinorrmandy; Dr. Melvin Trujillo MD Financial Quantitative Analyst: Signed Normal [facility] PSA,Total - Annual Screenon 02-22-2025 PSA,TOT SCREEN 1.40 ng/mL Normal 0.02-4.00 [facility] Comment on above: Result Comment: This test [...] values. Performed By: #### L 501.9910 #### [facility] [address] [place], [address] Cardiology Visit Reporton Cardiology Visit Report [facility] [address] [place] [address] OFFICE VISIT Date of Service: 12/14/24 MR#: [id number] Acct: [id number] Name: JARON MIRELES Rep #: [id number] : 1955 Provider: DENISE sifuentes Age/Sex: 69/M Location: [facility] Status: Signed HPI HPI History of Present [...] NIBP Intake Visit Reasons: 1 Y FU Wreath Inspector Required: No Is patient in pain?: No [...] past year?: Yes (Off of a ladder) [facility] Medical History Essential (primary) hypertension Elevated blood pressure reading in office without diagnosis of hypertension Nicotine dependence GERD (gastroesophageal reflux disease) Hyperlipidemia COPD (chronic obstructive pulmonary disease) Atherosclerotic heart disease [place] coronary artery w/angina pectoris Surgical History History [...] never substanc (more content not included)... Normal [facility] CBC W/Diff, Automatedon 07-10 Absolute Lymph 2.06 X10 3/uL Normal 0.83-4.51 [facility] Comment on above: Order Comment: Order Date: 07/20/24 Order Info: 0184-1 - CBCD Performed By: #### L 500.4050, L502.0250, L100.0100 #### [facility] [address] [place], [address] Absolute Neut 6.4 X10 3/uL Normal 2.0-7.7 [facility] Comment on above: Order Comment: Order Date: 07/20/24 Order Info: 0184-1 - CBCD Performed By: #### L 500.4050, L502.0250, L100.0100 #### [facility] [address] [place], [address] Basophils/100 WBC (Bld) 0.9 % Normal 0-1 [facility] Comment on above: Order Comment: Order Date: 07/20/24 Order Info: 0184-1 - CBCD Performed By: #### L 500.4050, L502.0250, L100.0100 #### [facility] [address] [place], [address] Eosinophils/100 WBC (Bld) 2.8 % Normal 0-5 [facility] Comment on above: Order Comment: Order Date: 07/20/24 Order Info: 0184-1 - CBCD Performed By: #### L 500.4050, L502.0250, L100.0100 #### [facility] [address] [place], [address] Erythrocyte distribution width (RBC) [Ratio] 12.7 % Normal 11.6-14.6 [facility] Comment on above: Order Comment: Order Date: 07/20/24 Order Info: 0184-1 - CBCD Performed By: #### L 500.4050, L502.0250, L100.0100 #### [facility] [address] [place], [address] Hematocrit (Bld) [Volume fraction] 46.5 % Normal 40-54 [facility] Comment on above: Order Comment: Order Date: 07/20/24 Order Info: 0184-1 - CBCD Performed By: #### L 500.4050, L502.0250, L100.0100 #### [facility] [address] [place], [address] Hemoglobin (Bld) [Mass/Vol] 15.5 g/dL Normal 13.0-16.5 [facility] Comment on above: Order Comment: Order Date: 07/20/24 Order Info: 0184- - CBCD Performed By: #### L 500.4050, L502.0250, L100.0100 #### [facility] [address] [place], [address] IG% 0.700 Normal 0.0-0.9 [facility] Comment on above: Order Comment: Order Date: 07/20/24 Order Info: 018- - CBCD Result Comment: IG% - Immature Granulocytes (promyelocytes, myelocytes and metamyelocytes) > 1% indicates that a LEFT SHIFT is Present. Performed By: #### L 500.4050, L502.0250, L100.0100 #### [facility] [address] [place], [address] Lymphocytes/100 WBC (Bld) 21.2 % Normal 19-41 [facility] Comment on above: Order Comment: Order Date: 07/20/24 Order Info: 018- - CBCD Performed By: #### L 500.4050, L502.0250, L100.0100 #### [facility] [address] [place], [address] MCH (RBC) [Entitic mass] 32.2 pg High 27.0-32.0 [facility] Comment on above: Order Comment: Order Date: 07/20/24 Order Info: 0184- - CBCD Performed By: #### L 500.4050, L502.0250, L100.0100 #### [facility] [address] [place], [address] MCHC (RBC) [Mass/Vol] 33.3 g/dL Normal 32-36 [facility] Comment on above: Order Comment: Order Date: 07/20/24 Order Info: 0184- - CBCD Performed By: #### L 500.4050, L502.0250, L100.0100 #### [facility] [address] [place], [address] MCV (RBC) [Entitic vol] 96.5 fL High 80-94 [facility] Comment on above: Order Comment: Order Date: 07/20/24 Order Info: 0184-1 - CBCD Performed By: #### L 500.4050, L502.0250, L100.0100 #### [facility] [address] [place], [address] Monocytes/100 WBC (Bld) 8.7 % Normal 0-10 [facility] Comment on above: Order Comment: Order Date: 07/20/24 Order Info: 0184-1 - CBCD Performed By: #### L 500.4050, L502.0250, L100.0100 #### [facility] [address] [place], [address] Neutrophils/100 WBC (Bld) 65.7 % Normal 47-70 [facility] Comment on above: Order Comment: Order Date: 07/20/24 Order Info: 0184-1 - CBCD Performed By: #### L 500.4050, L502.0250, L100.0100 #### [facility] [address] [place], [address] Nucleated RBC (Bld) [#/Vol] 0 10*3/uL Normal 0-5 [facility] Comment on above: Order Comment: Order Date: 07/20/24 Order Info: 0184-1 - CBCD Performed By: #### L 500.4050, L502.0250, L100.0100 #### [facility] [address] [place], [address] Platelet mean volume (Bld) [Entitic vol] 10.8 fL Normal 6.2-12.0 [facility] Comment on above: Order Comment: Order Date: 07/20/24 Order Info: 0184-1 - CBCD Performed By: #### L 500.4050, L502.0250, L100.0100 #### [facility] [address] [place], [address] Platelets (Bld) [#/Vol] 239 10*3/uL Normal 150-450 [facility] Comment on above: Order Comment: Order Date: 07/20/24 Order Info: 0184-1 - CBCD Performed By: #### L 500.4050, L502.0250, L100.0100 #### [facility] [address] [place], [address] RBC (Bld) [#/Vol] 4.82 10*6/uL Normal 4.6-6.2 [facility] Comment on above: Order Comment: Order Date: 07/20/24 Order Info: 0184- - CBCD Performed By: #### L 500.4050, L502.0250, L100.0100 #### [facility] [address] [place], [address] RDW SD 44.9 fl High 35.1-43.9 [facility] Comment on above: Order Comment: Order Date: 07/20/24 Order Info: 0184- - CBCD Performed By: #### L 500.4050, L502.0250, L100.0100 #### [facility] [address] [place], [address] WBC (Bld) [#/Vol] 9.7 10*3/uL Normal 4.4-11.0 [facility] Comment on above: Order Comment: Order Date: 07/20/24 Order Info: 0184-1 - CBCD Performed By: #### L 500.4050, L502.0250, L100.0100 #### [facility] [address] [place], [address] Comprehensive Metabolic Prof ilon 07-20-2024 Albumin [Mass/Vol] 4.6 g/dL Normal 3.2-5.0 [facility] Comment on above: Order Comment: Order Date: 07/20/24 Order Info: 0786-1 - CMP Performed By: #### L 500.4050, L502.0250, L100.0100 #### [facility] [address] [place], [address] Albumin/Globulin [Mass ratio] 1.6 {ratio} Normal 0.9-2.4 [facility] Comment on above: Order Comment: Order Date: 07/20/24 Order Info: 0786-1 - CMP Performed By: #### L 500.4050, L502.0250, L100.0100 #### [facility] [address] [place], [address] ALK P 75 U/L Normal 45-117 [facility] Comment on above: Order Comment: Order Date: 07/20/24 Order Info: 0786-1 - CMP Performed By: #### L 500.4050, L502.0250, L100.0100 #### [facility] [address] [place], [address] ALT [Catalytic activity/Vol] 26 U/L Normal 16-61 [facility] Comment on above: Order Comment: Order Date: 07/20/24 Order Info: 0786-1 - CMP Performed By: #### L 500.4050, L502.0250, L100.0100 #### [facility] [address] [place], [address] AST [Catalytic activity/Vol] 19 U/L Normal 15-37 [facility] Comment on above: Order Comment: Order Date: 07/20/24 Order Info: 0786-1 - CMP Performed By: #### L 500.4050, L502.0250, L100.0100 #### [facility] [address] [place], [address] Bilirubin [Mass/Vol] 0.50 mg/dL Normal 0.20-1.00 [facility] Comment on above: Order Comment: Order Date: 07/20/24 Order Info: 0786-1 - CMP Result Comment: For patients on eltrombopag therapy, use of Dimension Bradford TBIL is not recommended. Performed By: #### L 500.4050, L502.0250, L100.0100 #### [facility] [address] [place], [address] BUN/CRE 17.6 RATIO Normal 10-20 [facility] Comment on above: Order Comment: Order Date: 07/20/24 Order Info: 0786-1 - CMP Performed By: #### L 500.4050, L502.0250, L100.0100 #### [facility] [address] [place], [address] CA,Total 9.4 mg/dL Normal 8.5-10.1 [facility] Comment on above: Order Comment: Order Date: 07/20/24 Order Info: 0786-1 - CMP Performed By: #### L 500.4050, L502.0250, L100.0100 #### [facility] [address] [place], [address] Chloride [Moles/Vol] 103 mmol/L Normal 98-107 [facility] Comment on above: Order Comment: Order Date: 07/20/24 Order Info: 0786-1 - CMP Performed By: #### L 500.4050, L502.0250, L100.0100 #### [facility] [address] [place], [address] CO2 [Moles/Vol] 28.0 mmol/L Normal 21.0-32.0 [facility] Comment on above: Order Comment: Order Date: 07/20/24 Order Info: 0786-1 - CMP Performed By: #### L 500.4050, L502.0250, L100.0100 #### [facility] [address] [place], [address] Creatinine [Mass/Vol] 1.02 mg/dL Normal 0.70-1.30 [facility] Comment on above: Order Comment: Order Date: 07/20/24 Order Info: 0786-1 - CMP Result Comment: The validity of the calculated GFR GFRAA in patients over 70 years has not been determined. Clinical correlation is essential. Performed By: #### L 500.4050, L502.0250, L100.0100 #### [facility] [address] [place], [address] EST GFR - AA 93 mL/min Normal >60 [facility] Comment on above: Order Comment: Order Date: 07/20/24 Order Info: 0786-1 - CMP Result Comment: Afri can [place]uv[place] GFR Calc Performed By: #### L 500.4050, L502.0250, L100.0100 #### [facility] [address] [place], [address] GAP 8 Normal 5-15 [facility] Comment on above: Order Comment: Order Date: 07/20/24 Order Info: 0786-1 - CMP Performed By: #### L 500.4050, L502.0250, L100.0100 #### [facility] [address] [place], [address] GFR/1.73 sq M.predicted among non-blacks MDRD (S/P/Bld) [Vol rate/Area] 77 mL/min/{1.73_m2} Normal >60 [facility] Comment on above: Order Comment: Order Date: 07/20/24 Order Info: 0786-1 - CMP Result Comment: Non- GFR Calc Performed By: #### L 500.4050, L502.0250, L100.0100 #### [facility] [address] [place], [address] Globulin (S) [Mass/Vol] 2.9 g/dL Normal 2.2-4.2 [facility] Comment on above: Order Comment: Order Date: 07/20/24 Order Info: 0786-1 - CMP Performed By: #### L 500.4050, L502.0250, L100.0100 #### [facility] [address] [place], [address] Glucose [Mass/Vol] 90 mg/dL Normal 74-106 [facility] Comment on above: Order Comment: Order Date: 07/20/24 Order Info: 0786-1 - CMP Performed By: #### L 500.4050, L502.0250, L100.0100 #### [facility] [address] [place], [address] Potassium [Moles/Vol] 4.3 mmol/L Normal 3.5-5.1 [facility] Comment on above: Order Comment: Order Date: 07/20/24 Order Info: 0786-1 - CMP Performed By: #### L 500.4050, L502.0250, L100.0100 #### [facility] [address] [place], [address] Sodium [Moles/Vol] 138 mmol/L Normal 136-145 [facility] Comment on above: Order Comment: Order Date: 07/20/24 Order Info: 0786-1 - CMP Performed By: #### L 500.4050, L502.0250, L100.0100 #### [facility] [address] [place], [address] T PROT 7.5 g/dL Normal 6.4-8.2 [facility] Comment on above: Order Comment: Order Date: 07/20/24 Order Info: 0786-1 - CMP Performed By: #### L 500.4050, L502.0250, L100.0100 #### [facility] [address] [place], [address] Urea nitrogen [Mass/Vol] 18 mg/dL Normal 7-18 [facility] Comment on above: Order Comment: Order Date: 07/20/24 Order Info: 0786-1 - CMP Performed By: #### L 500.4050, L502.0250, L100.0100 #### [facility] [address] [place], [address] Microalb:Creat Ratio,Random URon 07-20-2024 Creatinine [Mass/Vol] 64.30 mg/dL Normal NO RAN GE EST. [facility] Comment on above: Order Comment: Order Date: 07/20/24 Order Info: 0779-1 - MIACRE Performed By: #### L 500.4050, L502.0250, L100.0100 #### [facility] [address] [place], [address] MALB:CRE 8.0 mg/g CRE Normal <30 mg/g CRE [facility] Comment on above: Order Comment: Order Date: 07/20/24 Order Info: 0779-1 - MIACRE Performed By: #### L 500.4050, L502.0250, L100.0100 #### [facility] [address] [place], [address] MICROALBUMIN,UR 5.2 mg/L Normal NO RANGE EST. [facility] Comment on above: Order Comment: Order Date: 07/20/24 Order Info: 0779-1 - MIACRE Performed By: #### L 500.4050, L502.0250, L100.0100 #### [facility] [address] [place], [address] Absolute lymphocyte countOrd ered By: Melvin Trujillo on 09-23-2023 Lymphocytes Auto (Unsp spec) [#/Vol] 1.91 10*3/uL 0.83-4.51 [facility] Automated lymphocyte count a s percentage of total leukocytesOrdered By: Melvin Trujillo on 09-23-2023 Lymphocytes/100 WBC Auto (Unsp spec) 20.1 % 19-41 [facility] Basophil percentageOrdered B y: Melvin Trujillo on 09-23-2023 Basophils/100 WBC (Bld) 0.8 % 0-1 [facility] Bilirubin [Mass/Vol] 0.80 mg/dL 0.20-1.00 [facility] Comment on above: For patients on eltr ombopag therapy, use of Dimension Bradford TBIL is not recommended. Chloride [Moles/Vol] 107 mmol/L 98-107 [facility] Cholesterol [Mass/Vol] 138 mg/dL <200 [facility] Comment on above: <200 mg/dL Desirable 200-240 mg/dL Borderline >240 mg/dL High Risk Eosinophils/100 WBC (Bld) 2.2 % 0-5 [facility] Glucose [Mass/Vol] 114 mg/dL 74-106 [facility] Comment on above: Fasting Glucose resu lt from 100 to 125 mg/dL suggests IMPAIRED HOMEOSTASIS per A.D.A. criteria. Hemoglobin (Bld) [Mass/Vol] 15.1 g/dL 13.0-16.5 [facility] Monocytes/100 WBC (Bld) 7.3 % 0-10 [facility] Neutrophils (Bld) [#/Vol] 6.5 10*3/uL 2.0-7.7 [facility] Neutrophils/100 WBC (Bld) 68.9 % 47-70 [facility] Potassium [Moles/Vol] 5.2 mmol/L 3.5-5.1 [facility] Protein [Mass/Vol] 7.2 g/dL 6.4-8.2 [facility] Sodium [Moles/Vol] 138 mmol/L 136-145 [facility] Triglyceride [Mass/Vol] 84 mg/dL <199 [facility] Comment on above: The drugs N-Acetylcy steine and Metamizole may falsely depress this assay.Serum Triglycerides Reference Interval Normal <150 mg/dL Borderline high 150 - 199 mg/dL High 200 - 499 mg/dL Very High > or = 500 mg/dL WBC (Bld) [#/Vol] 9.5 10*3/uL 4.4-11.0 [facility] Determination of erythrocyte mean corpuscular volume (MCV)Ordered By: Melvin Trujillo on 09-23-2023 MCV (RBC) [Entitic vol] 96.5 fL 80-94 [facility] Erythrocyte distribution wid th ratioOrdered By: Melvin Trujillo on 09-23-2023 Erythrocyte distribution width (RBC) [Ratio] 14.0 % 11.6-14.6 [facility] Erythrocyte distribution wid th standard deviationOrdered By: Melvin Trujillo on 09-23-2023 Erythrocyte distribution width (RBC) [Entitic vol] 49.4 fL 35.1-43.9 [facility] Hematocrit Auto (Bld) [Volum e fraction]Ordered By: Melvin Trujillo on 09-23-2023 Hematocrit (Bld) [Volume fraction] 44.3 % 40-54 [facility] Immature granulocytes/100 WB C Auto (Bld)Ordered By: Melvin Trujillo on 09-23-2023 Immature granulocytes/100 WBC (Bld) 0.700 % 0.0-0.9 [facility] Comment on above: IG% - Immature Granu locytes (promyelocytes, myelocytes and metamyelocytes) > 1% indicates that a LEFT SHIFT is Present. Laboratory - Chemistry and C hemistry - challengeOrdered By: Melvin Trujillo on 09-23-2023 Albumin/Globulin [Mass ratio] 1.2 {ratio} 0.9-2.4 [facility] ALP [Catalytic activity/Vol] 65 U/L 45-117 [facility] ALT [Catalytic activity/Vol] 29 U/L 16-61 [facility] Cholesterol in HDL [Mass/Vol] 59 mg/dL >40 [facility] Comment on above: The drugs N-Acetylcy steine and Metamizole may falsely depress this assay. Reference Range HDL <40 mg/dL Low HDL Cholesterol HDL >or= 60 mg/dL High HDL Cholesterol Cholesterol in LDL [Mass/Vol] 62 mg/dL 0-130 [facility] CO2 [Moles/Vol] 30.0 mmol/L 21.0-32.0 [facility] Globulin (S) [Mass/Vol] 3.2 g/dL 2.2-4.2 [facility] Urea nitrogen/Creatinine [Mass ratio] 15.4 mg/mg 10-20 [facility] Laboratory - Hematology and Cell countsOrdered By: Melvin Trujillo on 09-23-2023 MCH (RBC) [Entitic mass] 32.9 pg 27.0-32.0 [facility] MCHC (RBC) [Mass/Vol] 34.1 g/dL 32-36 [facility] Nucleated RBC/100 WBC (Bld) [Ratio] 0 % 0-5 [facility] Platelet mean volume (Bld) [Entitic vol] 10.5 fL 6.2-12.0 [facility] Platelets (Bld) [#/Vol] 268 10*3/uL 150-450 [facility] No Panel InformationOrdered By: Melvin Trujillo on 09-23-2023 Estimated GFR (MDRD) Amer 79 mL/min >60 [facility] Comment on above: GFR Calc Estimated GFR (MDRD) Non-Af Amer 66 mL/min >60 [facility] Comment on above: Non- GFR Calc Urine Microalbumin/Creatinin e Ratio 11.5 mg/g CRE <30 [facility] VLDL Cholesterol 17 mg/dL 5-40 [facility] RBC Auto (Bld) [#/Vol]Ordere d By: Melvin Trujillo on 09-23-2023 RBC (Bld) [#/Vol] 4.59 10*6/uL 4.6-6.2 [facility] Serum or plasma calcium todd urement (mass/volume)Ordered By: Melvin Trujillo on 09-23-2023 Calcium [Mass/Vol] 9.2 mg/dL 8.5-10.1 [facility] Serum or plasma creatinine m easurement (mass/volume)Ordered By: Melvin Trujillo on 09-23-2023 Creatinine [Mass/Vol] 1.17 mg/dL 0.70-1.30 [facility] Comment on above: The validity of the calculated GFR & GFRAA in patients over 70 years has not been determined. Clinical correlation is essential. Serum or plasma urea nitroge n measurement (mass/volume)Ordered By: Melvin Trujillo on 09-23-2023 Urea nitrogen [Mass/Vol] 18 mg/dL 7-18 [facility] Thin prep Papanicolaou smear with manual screeningOrdered By: Melvin Trujillo on 09-23-2023 Thin prep Papanicolaou smear with manual screening 4.0 g/dL 3.2-5.0 [facility] Thin prep Papanicolaou smear with manual screening 20 U/L 15-37 [facility] Thin prep Papanicolaou smear with manual screening 1 5-15 [facility] Thin prep Papanicolaou smear with manual screening 8.7 mg/L NO RANGE EST. [facility] Urine creatinine measurement (mass/volume)Ordered By: Melvin Trujillo on 09-23-2023 Creatinine (U) [Mass/Vol] 75.40 mg/dL NO RANGE EST. [facility] Absolute lymphocyte countOrd ered By: Melvin Trujillo on 01-21-2023 Lymphocytes Auto (Unsp spec) [#/Vol] 1.69 10*3/uL 0.83-4.51 [facility] Basophil percentageOrdered B y: Melvin Trujillo on 01-21-2023 Basophil percentage 2.9 mg/dL 2.5-4.9 [facility] Basophils/100 WBC (Bld) 0.8 % 0-1 [facility] Bilirubin [Mass/Vol] 0.40 mg/dL 0.20-1.00 [facility] Comment on above: For patients on eltr ombopag therapy, use of Dimension Bradford TBIL is not recommended. Chloride [Moles/Vol] 104 mmol/L 98-107 [facility] Eosinophils/100 WBC (Bld) 2.6 % 0-5 [facility] Glucose [Mass/Vol] 91 mg/dL 74-106 [facility] Neutrophils (Bld) [#/Vol] 5.1 10*3/uL 2.0-7.7 [facility] Neutrophils/100 WBC (Bld) 65.8 % 47-70 [facility] Potassium [Moles/Vol] 4.9 mmol/L 3.5-5.1 [facility] Protein [Mass/Vol] 7.2 g/dL 6.4-8.2 [facility] Sodium [Moles/Vol] 139 mmol/L 136-145 [facility] WBC (Bld) [#/Vol] 7.7 10*3/uL 4.4-11.0 [facility] Blood erythrocytes count (nu mber/volume)Ordered By: Melvin Trujillo on 01-21-2023 RBC (Bld) [#/Vol] 4.43 10*6/uL 4.6-6.2 [facility] Blood hemoglobin measurement (mass/volume)Ordered By: Melvin Trujillo on 01-21-2023 Hemoglobin (Bld) [Mass/Vol] 14.7 g/dL 13.0-16.5 [facility] Blood lymphocytes/100 leukoc ytesOrdered By: Melvin Trujillo on 01-21-2023 Lymphocytes/100 WBC (Bld) 21.9 % 19-41 [facility] Blood monocytes/100 leukocyt esOrdered By: Melvin Trujillo on 01-21-2023 Monocytes/100 WBC (Bld) 8.5 % 0-10 [facility] Blood platelet mean volumeOr dered By: Melvin Trujillo on 01-21-2023 Platelet mean volume (Bld) [Entitic vol] 10.5 fL 6.2-12.0 [facility] Determination of erythrocyte mean corpuscular volume (MCV)Ordered By: Melvin Trujillo on 01-21-2023 MCV (RBC) [Entitic vol] 98.2 fL 80-94 [facility] Hematocrit Auto (Bld) [Volum e fraction]Ordered By: Melvin Trujillo on 01-21-2023 Hematocrit (Bld) [Volume fraction] 43.5 % 40-54 [facility] Laboratory - Chemistry and C hemistry - challengeOrdered By: Melvin Trujillo on 01-21-2023 ALP [Catalytic activity/Vol] 69 U/L 45-117 [facility] ALT [Catalytic activity/Vol] 26 U/L 16-61 [facility] CO2 [Moles/Vol] 30.0 mmol/L 21.0-32.0 [facility] Globulin (S) [Mass/Vol] 3.3 g/dL 2.2-4.2 [facility] Magnesium [Mass/Vol] 2.3 mg/dL 1.6-2.6 [facility] Urea nitrogen/Creatinine [Mass ratio] 15.8 mg/mg 10-20 [facility] Laboratory - Hematology and Cell countsOrdered By: Melvin Trujillo on 01-21-2023 Erythrocyte distribution width (RBC) [Entitic vol] 47.8 fL 35.1-43.9 [facility] Erythrocyte distribution width (RBC) [Ratio] 13.2 % 11.6-14.6 [facility] Immature granulocytes/100 WBC (Bld) 0.400 % 0.0-0.9 [facility] Comment on above: IG% - Immature Granu locytes (promyelocytes, myelocytes and metamyelocytes) > 1% indicates that a LEFT SHIFT is Present. MCH (RBC) [Entitic mass] 33.2 pg 27.0-32.0 [facility] Nucleated RBC/100 WBC (Bld) [Ratio] 0 % 0-5 [facility] MCHC Auto (RBC) [Mass/Vol]Or dered By: Melvin Trujillo on 01-21-2023 MCHC (RBC) [Mass/Vol] 33.8 g/dL 32-36 [facility] No Panel InformationOrdered By: Melvin Trujillo on 01-21-2023 Estimated GFR (MDRD) Amer 77 mL/min >60 [facility] Comment on above: GFR Calc Estimated GFR (MDRD) Non-Af Amer 64 mL/min >60 [facility] Comment on above: Non- GFR Calc Thyroid Stimulating Hormone (TSH) 2.18 uIU/mL 0.358-3.74 [facility] Platelets bldOrdered By: Lizabeth Trujillo on 01-21-2023 Platelets (Bld) [#/Vol] 245 10*3/uL 150-450 [facility] Serum or plasma albumin todd urement (mass/volume)Ordered By: Melvin Trujillo on 01-21-2023 Albumin [Mass/Vol] 3.9 g/dL 3.2-5.0 [facility] Serum or plasma albumin/glob ulin mass ratioOrdered By: Melvin Trujillo on 01-21-2023 Albumin/Globulin [Mass ratio] 1.2 {ratio} 0.9-2.4 [facility] Serum or plasma calcium todd urement (mass/volume)Ordered By: Melvin Trujillo on 01-21-2023 Calcium [Mass/Vol] 8.8 mg/dL 8.5-10.1 [facility] Serum or plasma creatinine m easurement (mass/volume)Ordered By: Melvin Trujillo on 01-21-2023 Creatinine [Mass/Vol] 1.20 mg/dL 0.70-1.30 [facility] Comment on above: The validity of the calculated GFR & GFRAA in patients over 70 years has not been determined. Clinical correlation is essential. Serum or plasma urea nitroge n measurement (mass/volume)Ordered By: Melvin Trujillo on 01-21-2023 Urea nitrogen [Mass/Vol] 19 mg/dL 7-18 [facility] Thin prep Papanicolaou smear with manual screeningOrdered By: Melvin Trujillo on 01-21-2023 Thin prep Papanicolaou smear with manual screening 18 U/L 15-37 [facility] Thin prep Papanicolaou smear with manual screening 5 - [facility] SURGICAL PATHOLOGY RESULTSon 11-13-2022 Pathology Report Name JARON MIRELES Pathologist: BRIAN MCGRATH M.D. Date of Procedure: 11/06/2022 Date Received: 11/06/2022 Date Reported 11/13/2022 Submitting Physician: VINAYAK EDMONDS DO Location: [facility] Copy To/Referring/Attendin g: MELVIN TRUJILLO MD Other External # FINAL DIAGNOSIS RECTOSIGMOID COLON, POLYP, POLYPECTOMY: -- HYPERPLASTIC POLYP. Electronically Signed Out By BRIAN MCGRATH M.D./MAKENZIE By the signature on this report, the individual or group listed as making the Final Interpretation/Diagno sis certifies that they have reviewed this case. Diagnostic interpretation performed at [place] [address] Clinical History: Clinical Diagnosis History COLONOSCOPY Specimens Submitted As: A: RECTO-SIGMOID JUNCTION POLYP Gross Description: Received in formalin, labeled with the patient's name and hospital number and rectosigmoid polyp, is a fragment of engel, soft tissue measuring 0.4 x 0.3 x 0.2 cm. The specimen is submitted in toto in one cassette. MKM mkm/11/08/2022 [facility] Department of Pathology [address] [place] [address] Colonoscopyon 11-06-2022 Colonoscopy PATIENTNAME Patient Name: Jaron Mireles EXAMDATE Procedure Date: 11/06/2022 2:21 PM PATIENTID PATIENTACCOUNTNUM PATIENTDOB Date of : 1955 ADMITTYPE Admit Type: Outpatient PATIENTROOM Site: [facility] Endo Proc RM 1 ETHNICITY Ethnicity: Not or RACE Race: White PROVDR Attending MD: Vinayak Edmonds DO, [id number] ENDOPROCEDURENAME Procedure: Colonoscopy INDICATION Indications: Surveillance: Personal history of colonic polyps (unknown histology) on last colonoscopy more than 5 years ago PRIMARYPROVIDER Providers: Vinayak Edmonds DO (Doctor), Damaris Ferrari RN (Nurse), Joel Sanchez, Machine Cloth Trimmer EDREFPROVIDER Referring: Melvin Trujillo MD CURRENT_MEDS Medicines: [...] results. CPT_CODES Procedure Code(s): --- Professional --- 73727, Colonoscopy, flexible; with biopsy, single or multiple 53950, Moderate sedation; each additional 15 minutes intraservice time G0500, Moderate sedation services provided by the same physician or other qualified health home care administrator performing a gastrointestinal endoscopic service that sedation supports, requiring the presence of an independent trained observer to assist in the monitoring of the patient's level of consciousness and physiological status; initial 15 minutes of intra-service time; patient age 5 years or older (additional (more content not included)... Normal [facility] Vinayak Edmonds DO - 12/02/2022 Patient Name: Jaron Mireles Procedure Date: 11/06/2022 2:21 PM Date of : 1955 Admit Type: Outpatient Site: [facility] 1 Ethnicity: Not or Race: White Attending MD: Vinayak Edmonds DO, [id number] Procedure: Colonoscopy Indications: Surveillance: Personal history of colonic polyps (unknown histology) on last colonoscopy more than 5 years ago Providers: Vinayak Edmonds DO (Doctor), Damaris Ferrari RN (Nurse), Joel Sanchez, Machine Cloth Trimmer Referring: Melvin Trujillo MD Medicines: Midazolam 7.5 [...] pathology results. Procedure Code(s): --- Professional --- 10501, Colonoscopy, flexible; with biopsy, single or multiple 96119, Moderate sedation; each additional 15 minutes intraservice time G0500, Moderate sedation services provided by the same physician or other qualified health home care administrator performing a gastrointestinal endoscopic service that sedation supports, requiring the presence of an independent trained observer to assist in the monitoring of the patient's level of consciousness and physiological status; initial 15 minutes of intra-service time; patient age 5 years or older (additional time may be reported with 27948, as appropriate) Diagnosis Code(s): --- Professional --- Z12.11, Encounter for screening for malignant neoplasm of colon Z86.010, Personal history of colonic polyps (more content not included)... [facility] Work Phone: Radiology Study observation (narrative) [facility] Work Phone: ColonoscopyOrdered By: Vinayak Edmonds on 11-06-2022 [facility] Work Phone: [facility] Surgical Pathology Depar tmenton 11-06-[address] [facility] Surgical Pathology Department Name JARON MIRELESCandelaria Pathologist: BRIAN MCGRATH M.D. Date of Procedure: 11/06/2022 Date Received: 11/06/2022 Date Reported 11/13/2022 Submitting Physician: VINAYAK EDMONDS DO Location: [facility] Copy To/Referring/Attendin g: MELVIN TRUJILLO MD Other External # FINAL DIAGNOSIS RECTOSIGMOID COLON, POLYP, POLYPECTOMY: -- HYPERPLASTIC POLYP. Electronically Signed Out By BRIAN MCGRATH M.D./MAKENZIE By the signature on this report, the individual or group listed as making the Final Interpretation/Diagno sis certifies that they have reviewed this case. Diagnostic interpretation performed at [address] [place] [address] Clinical History: Clinical Diagnosis History COLONOSCOPY Specimens Submitted As: A: RECTO-SIGMOID JUNCTION POLYP Gross Description: Received in formalin, labeled with the patient's name and hospital number and rectosigmoid polyp, is a fragment of engel, soft tissue measuring 0.4 x 0.3 x 0.2 cm. The specimen is submitted in toto in one cassette. MKM mkm/11/08/2022 [facility] Department of Pathology [id number] [place] [address] Normal [facility] Comment on above: Performed By: #### [facility] #### [facility] Surgical Pathology Department [address] [place] [address] Absolute lymphocyte countOrd ered By: Dr. Trujillo on 10-11-2022 Lymphocytes Auto (Unsp spec) [#/Vol] 2.30 10*3/uL 0.83-4.51 [facility] Basophil percentageOrdered B y: Chris Pineda on 10-11-2022 Cholesterol [Mass/Vol] 128 mg/dL <200 [facility] Comment on above: <200 mg/dL Desirable 200-240 mg/dL Borderline >240 mg/dL High Risk Triglyceride [Mass/Vol] 73 mg/dL <199 [facility] Comment on above: The drugs N-Acetylcy steine and Metamizole may falsely depress this assay.Serum Triglycerides Reference Interval Normal <150 mg/dL Borderline high 150 - 199 mg/dL High 200 - 499 mg/dL Very High > or = 500 mg/dL Basophil percentageOrdered B y: Dr. Trujillo on 10-11-2022 Basophils/100 WBC (Bld) 1.2 % 0-1 [facility] Bilirubin [Mass/Vol] 0.60 mg/dL 0.20-1.00 [facility] Comment on above: For patients on eltr ombopag therapy, use of Dimension Bradford TBIL is not recommended. Chloride [Moles/Vol] 105 mmol/L 98-107 [facility] Eosinophils/100 WBC (Bld) 2.6 % 0-5 [facility] Glucose [Mass/Vol] 98 mg/dL 74-106 [facility] Neutrophils (Bld) [#/Vol] 4.7 10*3/uL 2.0-7.7 [facility] Neutrophils/100 WBC (Bld) 58.8 % 47-70 [facility] Potassium [Moles/Vol] 4.5 mmol/L 3.5-5.1 [facility] Protein [Mass/Vol] 7.1 g/dL 6.4-8.2 [facility] Sodium [Moles/Vol] 140 mmol/L 136-145 [facility] WBC (Bld) [#/Vol] 8.0 10*3/uL 4.4-11.0 [facility] Blood erythrocytes count (nu mber/volume)Ordered By: Dr. Trujillo on 10-11-2022 RBC (Bld) [#/Vol] 4.72 10*6/uL 4.6-6.2 [facility] Blood hemoglobin measurement (mass/volume)Ordered By: Dr. Trujillo on 10-11-2022 Hemoglobin (Bld) [Mass/Vol] 15.2 g/dL 13.0-16.5 [facility] Blood lymphocytes/100 leukoc ytesOrdered By: Dr. Trujillo on 10-11-2022 Lymphocytes/100 WBC (Bld) 28.6 % 19-41 [facility] Blood monocytes/100 leukocyt esOrdered By: Dr. Trujillo on 10-11-2022 Monocytes/100 WBC (Bld) 7.8 % 0-10 [facility] Blood platelet mean volumeOr dered By: Dr. Trujillo on 10-11-2022 Platelet mean volume (Bld) [Entitic vol] 10.1 fL 6.2-12.0 [facility] Determination of erythrocyte mean corpuscular volume (MCV)Ordered By: Dr. Trujillo on 10-11-2022 MCV (RBC) [Entitic vol] 96.2 fL 80-94 [facility] Direct bilirubinOrdered By: Dr. Trujillo on 10-11-2022 Bilirubin.direct [Mass/Vol] 0.19 mg/dL 0.00-0.30 [facility] Hematocrit Auto (Bld) [Volum e fraction]Ordered By: Dr. Trujillo on 10-11-2022 Hematocrit (Bld) [Volume fraction] 45.4 % 40-54 [facility] Laboratory - Chemistry and C hemistry - challengeOrdered By: Dr. Trujillo on 10-11-2022 ALP [Catalytic activity/Vol] 74 U/L 45-117 [facility] ALT [Catalytic activity/Vol] 21 U/L 16-61 [facility] CO2 [Moles/Vol] 29.0 mmol/L 21.0-32.0 [facility] Free T4 [Mass/Vol] 0.88 ng/dL 0.76-1.46 [facility] Globulin (S) [Mass/Vol] 3.1 g/dL 2.2-4.2 [facility] Urea nitrogen/Creatinine [Mass ratio] 18.8 mg/mg 10-20 [facility] Laboratory - Hematology and Cell countsOrdered By: Dr. Trujillo on 10-11-2022 Erythrocyte distribution width (RBC) [Entitic vol] 45.3 fL 35.1-43.9 [facility] Erythrocyte distribution width (RBC) [Ratio] 12.7 % 11.6-14.6 [facility] Immature granulocytes/100 WBC (Bld) 1.000 % 0.0-0.9 [facility] Comment on above: IG% - Immature Granu locytes (promyelocytes, myelocytes and metamyelocytes) > 1% indicates that a LEFT SHIFT is Present. MCH (RBC) [Entitic mass] 32.2 pg 27.0-32.0 [facility] Nucleated RBC/100 WBC (Bld) [Ratio] 0 % 0-5 [facility] MCHC Auto (RBC) [Mass/Vol]Or dered By: Dr. Trujillo on 10-11-2022 MCHC (RBC) [Mass/Vol] 33.5 g/dL 32-36 [facility] No Panel InformationOrdered By: Dr. Trujillo on 10-11-2022 Anti-Nuclear Antibody Screen Negative Negative [facility] Comment on above: Performed at: [address] [id number] Director: Baldo Jauregui PhD, Phone: [phone] Estimated GFR (MDRD) Amer 94 mL/min >60 [facility] Comment on above: GFR Calc Estimated GFR (MDRD) Non-Af Amer 78 mL/min >60 [facility] Comment on above: Non- GFR Calc Thyroid Stimulating Hormone (TSH) 2.28 uIU/mL 0.358-3.74 [facility] Platelets bldOrdered By: Dr. Trujillo on 10-11-2022 Platelets (Bld) [#/Vol] 249 10*3/uL 150-450 [facility] Serum or plasma albumin todd urement (mass/volume)Ordered By: Dr. Trujillo on 10-11-2022 Albumin [Mass/Vol] 4.0 g/dL 3.2-5.0 [facility] Serum or plasma albumin/glob ulin mass ratioOrdered By: Dr. Trujillo on 10-11-2022 Albumin/Globulin [Mass ratio] 1.3 {ratio} 0.9-2.4 [facility] Serum or plasma calcium todd urement (mass/volume)Ordered By: Dr. Trujillo on 10-11-2022 Calcium [Mass/Vol] 9.2 mg/dL 8.5-10.1 [facility] Serum or plasma cholesterol in HDL measurement (mass/volume)Ordered By: Chris Pineda on 10-11-2022 Cholesterol in HDL [Mass/Vol] 51 mg/dL >40 [facility] Comment on above: The drugs N-Acetylcy steine and Metamizole may falsely depress this assay. Reference Range HDL <40 mg/dL Low HDL Cholesterol HDL >or= 60 mg/dL High HDL Cholesterol Serum or plasma cholesterol in VLDL measurement (mass/volume)Ordered By: Chris Pineda on 10-11-2022 Cholesterol in VLDL [Mass/Vol] 15 mg/dL 5-40 [facility] Serum or plasma creatinine m easurement (mass/volume)Ordered By: Dr. Trujillo on 10-11-2022 Creatinine [Mass/Vol] 1.01 mg/dL 0.70-1.30 [facility] Comment on above: The validity of the calculated GFR & GFRAA in patients over 70 years has not been determined. Clinical correlation is essential. Serum or plasma low density lipoprotein (LDL) cholesterol measurement (mass/volume)Ordered By: Chris Pineda on 10-11-2022 Cholesterol in LDL [Mass/Vol] 62 mg/dL 0-130 [facility] Serum or plasma urea nitroge n measurement (mass/volume)Ordered By: Dr. Trujillo on 10-11-2022 Urea nitrogen [Mass/Vol] 19 mg/dL 7-18 [facility] Thin prep Papanicolaou smear with manual screeningOrdered By: Dr. Trujillo on 10-11-2022 Thin prep Papanicolaou smear with manual screening 14 U/L 15-37 [facility] Thin prep Papanicolaou smear with manual screening 6 5-15 [facility] No Panel InformationOrdered By: Dr. Valladares on 07-15-2022 Prostate Specific Antigen Screen 1.72 ng/mL 0.00-4.00 [facility] Comment on above: This test was perfor med using the TPSA assay method for theFlavorvanil chemistry system. Values obtained with differentassay methods cannot be used interchangably.When changing PSA assays in the course of monitoring apatient, additional sequential testing should be carriedout to confirm baseline values. Absolute lymphocyte countOrd ered By: Dr. Azevedo on 05-16-2022 Lymphocytes Auto (Unsp spec) [#/Vol] 2.24 10*3/uL 0.83-4.51 [facility] Basophil percentageOrdered B y: Dr. Azevedo on 05-16-2022 Basophils/100 WBC (Bld) 0.8 % 0-1 [facility] Chloride [Moles/Vol] 107 mmol/L 98-107 [facility] Eosinophils/100 WBC (Bld) 3.2 % 0-5 [facility] Glucose [Mass/Vol] 100 mg/dL 74-106 [facility] Comment on above: Fasting Glucose resu lt from 100 to 125 mg/dL suggests IMPAIRED HOMEOSTASIS per A.D.A. criteria. Neutrophils (Bld) [#/Vol] 6.2 10*3/uL 2.0-7.7 [facility] Neutrophils/100 WBC (Bld) 64.4 % 47-70 [facility] Potassium [Moles/Vol] 4.2 mmol/L 3.5-5.1 [facility] Sodium [Moles/Vol] 141 mmol/L 136-145 [facility] WBC (Bld) [#/Vol] 9.6 10*3/uL 4.4-11.0 [facility] Blood erythrocytes count (nu mber/volume)Ordered By: Dr. Azevedo on 05-16-2022 RBC (Bld) [#/Vol] 4.92 10*6/uL 4.6-6.2 [facility] Blood hemoglobin measurement (mass/volume)Ordered By: Dr. Azevedo on 05-16-2022 Hemoglobin (Bld) [Mass/Vol] 15.9 g/dL 13.0-16.5 [facility] Blood lymphocytes/100 leukoc ytesOrdered By: Dr. Azevedo on 05-16-2022 Lymphocytes/100 WBC (Bld) 23.3 % 19-41 [facility] Blood monocytes/100 leukocyt esOrdered By: Dr. Azevedo on 05-16-2022 Monocytes/100 WBC (Bld) 7.9 % 0-10 [facility] Blood platelet mean volumeOr dered By: Dr. Azevedo on 05-16-2022 Platelet mean volume (Bld) [Entitic vol] 10.3 fL 6.2-12.0 [facility] Determination of erythrocyte mean corpuscular volume (MCV)Ordered By: Dr. Azevedo on 05-16-2022 MCV (RBC) [Entitic vol] 95.7 fL 80-94 [facility] Hematocrit Auto (Bld) [Volum e fraction]Ordered By: Dr. Azevedo on 05-16-2022 Hematocrit (Bld) [Volume fraction] 47.1 % 40-54 [facility] Laboratory - Chemistry and C hemistry - challengeOrdered By: Dr. Azevedo on 05-16-2022 CO2 [Moles/Vol] 30.0 mmol/L 21.0-32.0 [facility] Urea nitrogen/Creatinine [Mass ratio] 17.3 mg/mg 10-20 [facility] Laboratory - Hematology and Cell countsOrdered By: Dr. Azevedo on 05-16-2022 Erythrocyte distribution width (RBC) [Entitic vol] 46.1 fL 35.1-43.9 [facility] Erythrocyte distribution width (RBC) [Ratio] 13.2 % 11.6-14.6 [facility] Immature granulocytes/100 WBC (Bld) 0.400 % 0.0-0.9 [facility] Comment on above: IG% - Immature Granu locytes (promyelocytes, myelocytes and metamyelocytes) > 1% indicates that a LEFT SHIFT is Present. MCH (RBC) [Entitic mass] 32.3 pg 27.0-32.0 [facility] Nucleated RBC/100 WBC (Bld) [Ratio] 0 % 0-5 [facility] MCHC Auto (RBC) [Mass/Vol]Or dered By: Dr. Aezvedo on 05-16-2022 MCHC (RBC) [Mass/Vol] 33.8 g/dL 32-36 [facility] No Panel InformationOrdered By: Dr. Azevedo on 05-16-2022 Estimated GFR (MDRD) Amer 86 mL/min >60 [facility] Comment on above: GFR Calc Estimated GFR (MDRD) Non-Af Amer 71 mL/min >60 [facility] Comment on above: Non- GFR Calc Platelets bldOrdered By: Dr. Azevedo on 05-16-2022 Platelets (Bld) [#/Vol] 295 10*3/uL 150-450 [facility] Serum or plasma calcium todd urement (mass/volume)Ordered By: Dr. Azevedo on 05-16-2022 Calcium [Mass/Vol] 9.3 mg/dL 8.5-10.1 [facility] Serum or plasma creatinine m easurement (mass/volume)Ordered By: Dr. Azevedo on 05-16-2022 Creatinine [Mass/Vol] 1.10 mg/dL 0.70-1.30 [facility] Comment on above: The validity of the calculated GFR & GFRAA in patients over 70 years has not been determined. Clinical correlation is essential. Serum or plasma urea nitroge n measurement (mass/volume)Ordered By: Dr. Azevedo on 05-16-2022 Urea nitrogen [Mass/Vol] 19 mg/dL 7-18 [facility] Thin prep Papanicolaou smear with manual screeningOrdered By: Dr. Azevedo on 05-16-2022 Thin prep Papanicolaou smear with manual screening 4 5-15 [facility] Basophil percentageon 06-28- 2022 Bilirubin [Mass/Vol] 0.40 mg/dL 0.20-1.00 [facility] Work Phone: Comment on above: For patients on eltr ombopag therapy, use of Dimension Bradford TBIL is not recommended. Chloride [Moles/Vol] 103 mmol/L 98-107 [facility] Work Phone: Glucose [Mass/Vol] 92 mg/dL 74-106 [facility] Work Phone: [phone] Potassium [Moles/Vol] 4.7 mmol/L 3.5-5.1 [facility] Work Phone: Protein [Mass/Vol] 7.5 g/dL 6.4-8.2 [facility] Work Phone: Sodium [Moles/Vol] 138 mmol/L 136-145 [facility] Work Phone: Laboratory - Chemistry and C hemistry - challengeon 12-04-2021 ALP [Catalytic activity/Vol] 80 U/L 45-117 [facility] Work Phone: ALT [Catalytic activity/Vol] 28 U/L 16-61 [facility] Work Phone: CO2 [Moles/Vol] 30.0 mmol/L 21.0-32.0 [facility] Work Phone: Cobalamin (Vitamin B12) [Mass/Vol] 545 pg/mL 211-911 [facility] Work Phone: Free T4 [Mass/Vol] 0.99 ng/dL 0.76-1.46 [facility] Work Phone: Globulin (S) [Mass/Vol] 3.2 g/dL 2.2-4.2 [facility] Work Phone: Urea nitrogen/Creatinine [Mass ratio] 17.7 mg/mg 10-20 [facility] Work Phone: No Panel Informationon 12-04 Estimated GFR (MDRD) Amer 100 mL/min >60 [facility] Work Phone: Comment on above: GFR Calc Estimated GFR (MDRD) Non-Af Amer 83 mL/min >60 [facility] Work Phone: Comment on above: Non- GFR Calc Vitamin D 25-Hydroxy 59.1 ng/mL [facility] Work Phone: Comment on above: Vitamin D 25(OH) Sta tus Range Deficiency <20 ng/mL (50nmol/L) Insufficiency 20 - 30 ng/mL (50 - 75 nmol/L) Sufficiency 30 - 100 ng/mL (75 - 250 nmol/L) Toxicity >100 ng/mL (>250 nmol/L) Serum or plasma albumin todd urement (mass/volume)on 12-04-2021 Albumin [Mass/Vol] 4.3 g/dL 3.2-5.0 [facility] Work Phone: Serum or plasma albumin/glob ulin mass ratioon 12-04-2021 Albumin/Globulin [Mass ratio] 1.3 {ratio} 0.9-2.4 [facility] Work Phone: Serum or plasma calcium todd urement (mass/volume)on 12-04-2021 Calcium [Mass/Vol] 9.4 mg/dL 8.5-10.1 [facility] Work Phone: Serum or plasma creatinine m easurement (mass/volume)on 12-04-2021 Creatinine [Mass/Vol] 0.96 mg/dL 0.70-1.30 [facility] Work Phone: Comment on above: The validity of the calculated GFR & GFRAA in patients over 70 years has not been determined. Clinical correlation is essential. Serum or plasma urea nitroge n measurement (mass/volume)on 12-04-2021 Urea nitrogen [Mass/Vol] 17 mg/dL 7-18 [facility] Work Phone: Thin prep Papanicolaou smear with manual screeningon 12-04-2021 Thin prep Papanicolaou smear with manual screening 21 U/L 15-37 [facility] Work Phone: Thin prep Papanicolaou smear with manual screening 5 5-15 [facility] Work Phone: Absolute lymphocyte counton 11-28-2021 Lymphocytes Auto (Unsp spec) [#/Vol] 2.17 10*3/uL 0.83-4.51 [facility] Work Phone: Basophil percentageon 2021 Basophils/100 WBC (Bld) 0.7 % 0-1 [facility] Work Phone: Bilirubin [Mass/Vol] 0.60 mg/dL 0.20-1.00 [facility] Work Phone: Comment on above: For patients on eltr ombopag therapy, use of Dimension [place] TBIL is not recommended. Chloride [Moles/Vol] 105 mmol/L 98-107 [facility] Work Phone: Cholesterol [Mass/Vol] 119 mg/dL <200 [facility] Work Phone: Comment on above: <200 mg/dL Desirable 200-240 mg/dL Borderline >240 mg/dL High Risk Eosinophils/100 WBC (Bld) 3.2 % 0-5 [facility] Work Phone: Glucose [Mass/Vol] 91 mg/dL 74-106 [facility] Work Phone: Neutrophils (Bld) [#/Vol] 5.4 10*3/uL 2.0-7.7 [facility] Work Phone: Neutrophils/100 WBC (Bld) 62.2 % 47-70 [facility] Work Phone: Potassium [Moles/Vol] 4.4 mmol/L 3.5-5.1 [facility] Work Phone: Protein [Mass/Vol] 7.0 g/dL 6.4-8.2 [facility] Work Phone: Sodium [Moles/Vol] 139 mmol/L 136-145 [facility] Work Phone: Triglyceride [Mass/Vol] 89 mg/dL <199 [facility] Work Phone: Comment on above: The drugs N-Acetylcy steine and Metamizole may falsely depress this assay.Serum Triglycerides Reference Interval Normal <150 mg/dL Borderline high 150 - 199 mg/dL High 200 - 499 mg/dL Very High > or = 500 mg/dL WBC (Bld) [#/Vol] 8.7 10*3/uL 4.4-11.0 [facility] Work Phone: Blood erythrocytes count (nu mber/volume)on 11-28-2021 RBC (Bld) [#/Vol] 4.75 10*6/uL 4.6-6.2 [facility] Work Phone: Blood hemoglobin measurement (mass/volume)on 11-28-2021 Hemoglobin (Bld) [Mass/Vol] 15.4 g/dL 13.0-16.5 [facility] Work Phone: Blood lymphocytes/100 leukoc yteson 11-28-2021 Lymphocytes/100 WBC (Bld) 24.9 % 19-41 [facility] Work Phone: Blood monocytes/100 leukocyt eson 11-28-2021 Monocytes/100 WBC (Bld) 8.5 % 0-10 [facility] Work Phone: Blood platelet mean volumeon 11-28-2021 Platelet mean volume (Bld) [Entitic vol] 10.1 fL 6.2-12.0 [facility] Work Phone: Determination of erythrocyte mean corpuscular volume (MCV)on 11-28-2021 MCV (RBC) [Entitic vol] 95.6 fL 80-94 [facility] Work Phone: Direct bilirubinon 2 Bilirubin.direct [Mass/Vol] 0.19 mg/dL 0.00-0.30 [facility] Work Phone: Hematocrit Auto (Bld) [Volum e fraction]on 11-28-2021 Hematocrit (Bld) [Volume fraction] 45.4 % 40-54 [facility] Work Phone: Laboratory - Chemistry and C hemistry - challengeon 11-28-2021 ALP [Catalytic activity/Vol] 79 U/L 45-117 [facility] Work Phone: ALT [Catalytic activity/Vol] 25 U/L 16-61 [facility] Work Phone: [phone] CO2 [Moles/Vol] 30.0 mmol/L 21.0-32.0 [facility] Work Phone: Globulin (S) [Mass/Vol] 3.0 g/dL 2.2-4.2 [facility] Work Phone: Urea nitrogen/Creatinine [Mass ratio] 23.5 mg/mg 10-20 [facility] Work Phone: Laboratory - Hematology and Cell countson 11-28-2021 Erythrocyte distribution width (RBC) [Entitic vol] 44.9 fL 35.1-43.9 [facility] Work Phone: Erythrocyte distribution width (RBC) [Ratio] 12.8 % 11.6-14.6 [facility] Work Phone: Immature granulocytes/100 WBC (Bld) 0.500 % 0.0-0.9 [facility] Work Phone: Comment on above: IG% - Immature Granu locytes (promyelocytes, myelocytes and metamyelocytes) > 1% indicates that a LEFT SHIFT is Present. MCH (RBC) [Entitic mass] 32.4 pg 27.0-32.0 [facility] Work Phone: Nucleated RBC/100 WBC (Bld) [Ratio] 0 % 0-5 [facility] Work Phone: MCHC Auto (RBC) [Mass/Vol]on 11-28-2021 MCHC (RBC) [Mass/Vol] 33.9 g/dL 32-36 [facility] Work Phone: No Panel Informationon 11-28 Estimated GFR (MDRD) Amer 103 mL/min >60 [facility] Work Phone: Comment on above: GFR Calc Estimated GFR (MDRD) Non-Af Amer 85 mL/min >60 [facility] Work Phone: Comment on above: Non- GFR Calc Thyroid Stimulating Hormone (TSH) 2.66 uIU/mL 0.358-3.74 [facility] Work Phone: Platelets bldon 11-28-2021 Platelets (Bld) [#/Vol] 243 10*3/uL 150-450 [facility] Work Phone: Serum or plasma albumin todd urement (mass/volume)on 11-28-2021 Albumin [Mass/Vol] 4.0 g/dL 3.2-5.0 [facility] Work Phone: Serum or plasma calcium todd urement (mass/volume)on 11-28-2021 Calcium [Mass/Vol] 9.0 mg/dL 8.5-10.1 [facility] Work Phone: Serum or plasma cholesterol in HDL measurement (mass/volume)on 11-28-2021 Cholesterol in HDL [Mass/Vol] 43 mg/dL >40 [facility] Work Phone: Comment on above: The drugs N-Acetylcy steine and Metamizole may falsely depress this assay. Reference Range HDL <40 mg/dL Low HDL Cholesterol HDL >or= 60 mg/dL High HDL Cholesterol Serum or plasma cholesterol in VLDL measurement (mass/volume)on 11-28-2021 Cholesterol in VLDL [Mass/Vol] 18 mg/dL 5-40 [facility] Work Phone: Serum or plasma creatinine m easurement (mass/volume)on 11-28-2021 Creatinine [Mass/Vol] 0.94 mg/dL 0.70-1.30 [facility] Work Phone: Comment on above: The validity of the calculated GFR & GFRAA in patients over 70 years has not been determined. Clinical correlation is essential. Serum or plasma low density lipoprotein (LDL) cholesterol measurement (mass/volume)on 11-28-2021 Cholesterol in LDL [Mass/Vol] 58 mg/dL 0-130 [facility] Work Phone: Serum or plasma urea nitroge n measurement (mass/volume)on 11-28-2021 Urea nitrogen [Mass/Vol] 22 mg/dL 7-18 [facility] Work Phone: Thin prep Papanicolaou smear with manual screeningon 11-28-2021 Thin prep Papanicolaou smear with manual screening 19 U/L 15-37 [facility] Work Phone: Thin prep Papanicolaou smear with manual screening 4 5-15 [facility] Work Phone: Absolute lymphocyte counton 07-27-2021 Lymphocytes Auto (Unsp spec) [#/Vol] 2.44 10*3/uL 0.83-4.51 [facility] Work Phone: Basophil percentageon 2021 Basophils/100 WBC (Bld) 0.7 % 0-1 [facility] Work Phone: Bilirubin [Mass/Vol] 0.50 mg/dL 0.20-1.00 [facility] Work Phone: Comment on above: For patients on eltr ombopag therapy, use of Dimension [place] TBIL is not recommended. Chloride [Moles/Vol] 108 mmol/L 98-107 [facility] Work Phone: Eosinophils/100 WBC (Bld) 5.3 % 0-5 [facility] Work Phone: Glucose [Mass/Vol] 82 mg/dL 74-106 [facility] Work Phone: Neutrophils (Bld) [#/Vol] 4.4 10*3/uL 2.0-7.7 [facility] Work Phone: Neutrophils/100 WBC (Bld) 55.0 % 47-70 [facility] Work Phone: Potassium [Moles/Vol] 3.8 mmol/L 3.5-5.1 [facility] Work Phone: Protein [Mass/Vol] 6.5 g/dL 6.4-8.2 [facility] Work [facility]: Sodium [Moles/Vol] 139 mmol/L 136-145 [facility] Work Phone: WBC (Bld) [#/Vol] 8.1 10*3/uL 4.4-11.0 [facility] Work Phone: Blood erythrocytes count (nu mber/volume)on 07-27-2021 RBC (Bld) [#/Vol] 4.62 10*6/uL 4.6-6.2 [facility]: Blood hemoglobin measurement (mass/volume)on 07-27-2021 Hemoglobin (Bld) [Mass/Vol] 14.4 g/dL 13.0-16.5 [facility] Work Phone: Blood lymphocytes/100 leukoc yteson 07-27-2021 Lymphocytes/100 WBC (Bld) 30.3 % 19-41 [facility] Work Phone: Blood monocytes/100 leukocyt eson 07-27-2021 Monocytes/100 WBC (Bld) 8.2 % 0-10 [facility] Work Phone: Blood platelet mean volumeon 07-27-2021 Platelet mean volume (Bld) [Entitic vol] 10.3 fL 6.2-12.0 [facility] Work Phone: Determination of erythrocyte mean corpuscular volume (MCV)on 07-27-2021 MCV (RBC) [Entitic vol] 92.9 fL 80-94 [facility] Work Phone: Hematocrit Auto (Bld) [Volum e fraction]on 07-27-2021 Hematocrit (Bld) [Volume fraction] 42.9 % 40-54 [facility] Work Phone: Laboratory - Chemistry and C hemistry - challengeon 07-27-2021 ALP [Catalytic activity/Vol] 77 U/L 45-117 [facility] Work Phone: [phone] ALT [Catalytic activity/Vol] 22 U/L 16-61 [facility] Work Phone: [phone] CO2 [Moles/Vol] 27.0 mmol/L 21.0-32.0 [facility] Work Phone: [phone] Globulin (S) [Mass/Vol] 3.0 g/dL 2.2-4.2 [facility] Work Phone: [phone] Urea nitrogen/Creatinine [Mass ratio] 20.7 mg/mg 10-20 [facility] Work Phone: Laboratory - Hematology and Cell countson 07-27-2021 Erythrocyte distribution width (RBC) [Entitic vol] 44.6 fL 35.1-43.9 [facility] Work Phone: [phone] Erythrocyte distribution width (RBC) [Ratio] 12.9 % 11.6-14.6 [facility] Work Phone: [phone] Immature granulocytes/100 WBC (Bld) 0.500 % 0.0-0.9 [facility] Work Phone: Comment on above: IG% - Immature Granu locytes (promyelocytes, myelocytes and metamyelocytes) > 1% indicates that a LEFT SHIFT is Present. MCH (RBC) [Entitic mass] 31.2 pg 27.0-32.0 [facility] Work Phone: Nucleated RBC/100 WBC (Bld) [Ratio] 0 % 0-5 [facility] Work Phone: [phone] MCHC Auto (RBC) [Mass/Vol]on 07-27-2021 MCHC (RBC) [Mass/Vol] 33.6 g/dL 32-36 [facility] Work Phone: No Panel Informationon 07-27 Estimated Creatinine Clearance Calc 102.75 ml/min [facility] Work Phone: Estimated GFR (MDRD) Amer 120 mL/min >60 [facility] Work Phone: Comment on above: GFR Calc Estimated GFR (MDRD) Non-Af Amer 99 mL/min >60 [facility] Work Phone: Comment on above: Non- GFR Calc Platelets bldon 07-27-2021 Platelets (Bld) [#/Vol] 248 10*3/uL 150-450 [facility] Work Phone: Serum or plasma albumin todd urement (mass/volume)on 07-27-2021 Albumin [Mass/Vol] 3.5 g/dL 3.2-5.0 [facility] Work Phone: Serum or plasma albumin/glob ulin mass ratioon 07-27-2021 Albumin/Globulin [Mass ratio] 1.2 {ratio} 0.9-2.4 [facility] Work Phone: Serum or plasma calcium todd urement (mass/volume)on 07-27-2021 Calcium [Mass/Vol] 8.6 mg/dL 8.5-10.1 [facility] Work Phone: Serum or plasma creatinine m easurement (mass/volume)on 07-27-2021 Creatinine [Mass/Vol] 0.82 mg/dL 0.70-1.30 [facility] Work Phone: Comment on above: The validity of the calculated GFR & GFRAA in patients over 70 years has not been determined. Clinical correlation is essential. Serum or plasma urea nitroge n measurement (mass/volume)on 07-27-2021 Urea nitrogen [Mass/Vol] 17 mg/dL -18 [facility] Work Phone: Thin prep Papanicolaou smear with manual screeningon 07-27-2021 Thin prep Papanicolaou smear with manual screening 16 U/L 15-37 [facility] Work Phone: Thin prep Papanicolaou smear with manual screening 4 5-15 [facility] Work Phone: No Panel Informationon 07-26 Troponin I High Sensitivity 6 pg/mL 3.0-78.0 [facility] Work Phone: Comment on above: Please Note: New Fatimah t Units and Gender Specific Reference Ranges. For more information see Policy Stat Procedure [place] High Sensitivity Troponin (TNIH) and attachments. D-Dimer Quantitative (PE/DVT) 0.30 FEU/ug/m 0.27-0.49 [facility] Work Phone: Comment on above: NORMAL D-Dimer level (<0.50) indicates no DVT or PE. Whole blood hemoglobin A1c/t otal hemoglobin ratio (mass fraction)on 07-26-2021 HbA1c (Bld) [Mass fraction] 5.7 % 3.8-5.6 [facility] Work Phone: Comment on above: Normal < 5.7 % Predi abetic 5.7 - 6.4 % Diabetic >or= 6.5 % Please note range changes. EKGon 03-08-2019 Ordered by an unspecified provider. [facility] BMPon 03-06-2019 Anion gap [Moles/Vol] 12 mmol/L 10 - 2 0 mmol/L [facility] Calcium [Mass/Vol] 9.2 mg/dL 8.4 - 10. 2 mg/dL [facility] Chloride [Moles/Vol] 106 mmol/L 98 - 10 8 mmol/L [facility] Creatinine [Mass/Vol] 1.02 mg/dL 0.8 - 1.3 mg/dL [facility] GFR/1.73 sq M predicted among non-blacks MDRD (S/P/Bld) [Vol rate/Area] The eGFR should be used for monitoring renal function only and not for medication dosing. [facility] GFR/1.73 sq M.predicted CKD-EPI (S/P/Bld) [Vol rate/Area] 77 >=60 mL/min/1.73 m2 [facility] Glucose [Mass/Vol] 134 mg/dL High 65 - 99 mg/dL [facility] HCO3 [Moles/Vol] 27 mmol/L 21 - 32 mmol/L [facility] Potassium [Moles/Vol] 4.0 mmol/L 3.5 - 5.1 mmol/L [facility] Sodium [Moles/Vol] 141 mmol/L 135 - 145 mmol/L [facility] Urea nitrogen [Mass/Vol] 16 mg/dL 8 - 25 mg/dL [facility] Urea nitrogen/Creatinine [Mass ratio] 15.7 mg/mg [facility] CBC WITH AUTO DIFFERENTIALon 03-06-2019 Basophils (Bld) [#/Vol] 0.06 10*3/uL [facility] Basophils/100 WBC (Bld) 0.6 % [facility] Eosinophils (Bld) [#/Vol] 0.26 10*3/uL [facility] Eosinophils/100 WBC (Bld) 2.7 % [facility] Erythrocyte distribution width (RBC) [Entitic vol] 12.7 % 11.6 - 14.8 % [facility] Hematocrit (Bld) [Volume fraction] 43.5 % 41 - 53 % [facility] Hemoglobin (Bld) [Mass/Vol] 15.0 g/dL 13.5 - 17.5 g/dL [facility] Immature granulocytes (Bld) [#/Vol] 0.05 10*3/uL [facility] Immature granulocytes/100 WBC (Bld) 0.50 % [facility] Comment on above: The IG parameter is the percentage of metamyelocytes, myelocytes, and promyelocytes. Lymphocytes (Bld) [#/Vol] 1.89 10*3/uL [facility] Lymphocytes/100 WBC (Bld) 19.4 % [facility] MCH (RBC) [Entitic mass] 31.9 pg 26 - 34 pg [facility] MCHC (RBC) [Mass/Vol] 34.5 g/dL 31 - 37 g/dL [facility] MCV (RBC) [Entitic vol] 92.6 fL 80 - 100 fL [facility] Monocytes (Bld) [#/Vol] 0.63 10*3/uL [facility] Monocytes/100 WBC (Bld) 6.5 % [facility] Neutrophils (Bld) [#/Vol] 6.87 10*3/uL [facility] Neutrophils/100 WBC (Bld) 70.3 % [facility] Nucleated RBC (Bld) [#/Vol] 0.00 10*3/uL [facility] Nucleated RBC/100 WBC (Bld) [Ratio] 0.0 % [facility] Platelet mean volume (Bld) [Entitic vol] 10.5 fL 9 - 15.5 fL [facility] Platelets (Bld) [#/Vol] 256 10*3/uL [facility] RBC (Bld) [#/Vol] 4.70 10*6/uL [facility] ealth WBC (Bld) [#/Vol] 9.76 10*3/uL [facility] ealt ECG 12-LEADon 03-06-2019 Atrial Rate 76 BPM [facility] P [place] 71 degrees [facility] P-R Interval 144 ms [facility] Q-T Interval 386 ms [facility] QRS Duration 80 ms [facility] QTC Calculation (Bezet) 434 ms [facility] R [place] 78 degrees [facility] T [place] 78 degrees [facility] Ventricular Rate 76 BPM [facility] th ECG Cart Interpretation see physician note for interpretation. Poor data quality, interpretation may be adversely affected Normal sinus rhythm with sinus arrhythmia Normal ECG Confirmed by Angi Antonio ([id number]) on 03/06/2019 10:56:03 PM [facility] Otheron 03-06-2019 Extra Tube Hold for add-ons. [facility] Comment on above: Auto resulted. Interpretation and review of laboratory results Abnormal [facility] TROPONINon 03-06-2019 Interpretation and review of laboratory results Abnormal [facility] Troponin I.cardiac [Mass/Vol] 19 % <20% of Baseline Troponin [facility] Troponin I.cardiac [Mass/Vol] 62 ng/L Critically high <=45 [facility] Troponin I.cardiac [Mass/Vol] Probable non-acute cardiac injury or late presentation of acute injury. [facility] Troponin I.cardiac [Mass/Vol] 52 ng/L Critically high <=45 [facility] Troponin I.cardiac [Mass/Vol] Possible acute cardiac injury. [facility] XR CHEST AP/PA AND LATon Interface[facility]/06/2019 5:40 PM EDT [...] emphysema. [facility]/lab Workstation ID: [id number] [facility] EXAMINATION: XR CHES T AP/PA AND [...] shoulders. No acute osseous abnormality. [facility] No acute cardiopulmonary process. Persistent mild flattening of the hemidiaphragms suggest mild emphysema. [facility]/lab Workstation ID: [id number] [facility] XR CHEST AP/PA AND LAT EXAMINATION: [...] Mar 06, 2019 5:38:16 PM EDT Normal [facility] Comment on above: Order Comment: Injur y/Trauma or Illness?:Illness/Other How long have you had these symptoms (acute/chronic)?:Acute Reason for exam?:chest pain, hx of recent stents History of cancer?:u Surgeries, chemotherapy, or radiation?:u Type of Exam?:Initial Additional signs and symptoms?:na [facility] 08-07-2018 [facility] HNO ID: [id number] Author: Barbara Paulino) REYNOLD Lindsey Service: Radiology Author Type: Clinical Machine Cloth Trimmer Type: Allied Health Filed: 08/07/2018 1:55 PM [...] Tierney August 07, 2018 1:55 PM Normal [facility] APTTon 08-07-2018 aPTT Coag time (Bld) 27.9 s Normal 23.0-32.4 [facility] Comment on above: Result Comment: Unfr actionated [...] laboratory APTT reagent in use throughout the [facility]. Performed By: #### C BCDIF, PT, PTT, CMP #### [facility] Laboratory [address] [place] [address] CBC and Differentialon 08-07 Abs Baso 0.10 k/uL Normal <0.11 [facility] Comment on above: Performed By: #### C BCDIF, PT, PTT, CMP #### [facility] [address] [address] Abs [place]ug[place] 0.90 k/uL High <0.87 [facility] Comment on above: Performed By: #### C BCDIF, PT, PTT, CMP #### [facility] [address] [address] Abs Neut 6.49 k/uL Normal 1.45-7.50 [facility] Comment on above: Performed By: #### C BCDIF, PT, PTT, CMP #### [facility] [address] [address] Basophils/100 WBC (Bld) 1.0 % Normal [facility] Comment on above: Performed By: #### C BCDIF, PT, PTT, CMP #### [facility] [address] [place] [address] Eosinophils #/vol (Bld) 0.31 10*3/uL Normal <0.46 [facility] Comment on above: Performed By: #### C BCDIF, PT, PTT, CMP #### [facility] [address] [place] [address] Eosinophils/100 WBC (Bld) 3.1 % Normal [facility] Comment on above: Performed By: #### C BCDIF, PT, PTT, CMP #### [facility] [address] [place] [address] Erythrocyte distribution width Ratio (RBC) 12.9 % Normal 11.5-15.0 [facility] Comment on above: Performed By: #### C BCDIF, PT, PTT, CMP #### [facility] [address] [place] [address] Hematocrit Volume Fraction (Bld) 48.9 % Normal 39.0-51.0 [facility] Comment on above: Performed By: #### C BCDIF, PT, PTT, CMP #### [facility] [address] [place] [address] Hemoglobin mass conc (Bld) 16.3 g/dL Normal 13.0-17.0 [facility] Comment on above: Performed By: #### C BCDIF, PT, PTT, CMP #### [facility] [address] [address] Lymphocytes #/vol (Bld) 2.24 10*3/uL Normal 1.00-4.00 [facility] Comment on above: Performed By: #### C BCDIF, PT, PTT, CMP #### [facility] [address] Lymphocytes/100 WBC (Bld) 22.3 % Normal [facility] Comment on above: Performed By: #### C BCDIF, PT, PTT, CMP #### [facility] [address] [address] MCH Entitic mass (RBC) 31.1 pG Normal 26.0-34.0 [facility] Comment on above: Performed By: #### C BCDIF, PT, PTT, CMP #### [facility] [address] [address] MCHC mass conc (RBC) 33.3 g/dL Normal 30.5-36.0 [facility] Comment on above: Performed By: #### C BCDIF, PT, PTT, CMP #### [facility] [address] [place] [address] MCV Entitic volume (RBC) 93.3 fL Normal 80.0-100.0 [facility] Comment on above: Performed By: #### C BCDIF, PT, PTT, CMP #### [facility] [address] [place] [address] Monocytes/100 WBC (Bld) 9.0 % Normal [facility] Comment on above: Performed By: #### C BCDIF, PT, PTT, CMP #### [facility] [address] [place] [address] Neutrophils/100 WBC (Bld) 64.6 % Normal [facility] Comment on above: Performed By: #### C BCDIF, PT, PTT, CMP #### [facility] [address] [phone] Platelet mean volume Entitic volume (Bld) 10.3 fL Normal 9.0-12.7 [facility] Comment on above: Performed By: #### C BCDIF, PT, PTT, CMP #### [facility] [address] [address] Platelets #/vol (Bld) 261 10*3/uL Normal 150-400 [facility] Comment on above: Performed By: #### C BCDIF, PT, PTT, CMP #### [facility] [address] [phone] RBC #/vol (Bld) 5.24 10*6/uL Normal 4.20-6.00 [facility] Comment on above: Performed By: #### C BCDIF, PT, PTT, CMP #### [facility] [address] [phone] WBC #/vol (Bld) 10.04 10*3/uL Normal 3.70-11.00 [facility] Comment on above: Performed By: #### C BCDIF, PT, PTT, CMP #### [facility] [address] [phone] CT ABD/PEL WO IVCONon 2018 CT ABD/PEL WO IVCON * * *Final Report* * * DATE OF EXAM: Aug 07 2018 1:54PM [facility] [place] ABD/PEL WO IVCON / [...] hernia Nonspecific gastric wall thickening Prostate enlargement Financial Quantitative Analyst: [facility] Transcribe Date/Time: Aug 07 2018 1:56P Dictated by : NADIA SHEA MD This examination was interpreted and the report reviewed and electronically signed by: NADIA SHEA MD on Aug 07 2018 2:34PM EST [id number] Normal [facility] Comp Metabolic Panelon 08-07 Albumin mass conc 4.9 g/dL Normal 3.9-4.9 [facility] Comment on above: Performed By: #### C BCDIF, PT, PTT, CMP #### [facility] [address] [place] [address] ALP enzyme act/vol 84 U/L Normal 38-113 [facility] Comment on above: Performed By: #### C BCDIF, PT, PTT, CMP #### [facility] [address] [place], [place] [phone] ALT enzyme act/vol 16 U/L Normal 10-54 [facility] Comment on above: Performed By: #### C BCDIF, PT, PTT, CMP #### [facility] [address] [place] [address] Anion gap molar conc 9 mmol/L Normal 9-18 [facility] Comment on above: Performed By: #### C BCDIF, PT, PTT, CMP #### [facility] [address] [place] [address] AST enzyme act/vol 18 U/L Normal 14-40 [facility] Comment on above: Performed By: #### C BCDIF, PT, PTT, CMP #### [facility] [address] [place] [address] Bilirubin mass conc 0.6 mg/dL Normal 0.2-1.3 [facility] Comment on above: Performed By: #### C BCDIF, PT, PTT, CMP #### [facility] [address] [place] [address] Calcium mass conc 9.9 mg/dL Normal 8.5-10.2 [facility] Comment on above: Performed By: #### C BCDIF, PT, PTT, CMP #### [facility] [address] [place] [address] Chloride molar conc 101 mmol/L Normal 97-105 [facility] Comment on above: Performed By: #### C BCDIF, PT, PTT, CMP #### [facility] [address] [place] [address] CO2 molar conc 30 mmol/L Normal 22-30 [facility] Comment on above: Performed By: #### C BCDIF, PT, PTT, CMP #### [facility] [address] [place] [address] Creatinine mass conc 0.86 mg/dL Normal 0.73-1.22 [facility] Comment on above: Performed By: #### C BCDIF, PT, PTT, CMP #### [facility] [address] [place] [address] eGFR- Amer. >60 Normal [facility] Comment on above: Performed By: #### C BCDIF, PT, PTT, CMP #### [facility] [address] [place] [address] GFR/1.73 sq M predicted among non-blacks MDRD vol rate/area (S/P/Bld) mL/min/{1.73_m2} Normal [facility] Comment on above: Result Comment: eGFR [...] #### C BCDIF, PT, PTT, CMP #### [facility] [address] [place] [address] Glucose mass conc 99 mg/dL Normal 74-99 [facility] Comment on above: Result Comment: The [place] Diabetes Association (ADA) provides guidance for cutoff [...] Standards of Medical Care in Diabetes 2016, [place] [employer]. Diabetes Care. 2016.39(Suppl 1). Performed By: #### C BCDIF, PT, PTT, CMP #### [facility] [address] [place] [address] Potassium molar conc 4.3 mmol/L Normal 3.7-5.1 [facility] Comment on above: Performed By: #### C BCDIF, PT, PTT, CMP #### [facility] [address] [place] [address] Protein mass conc 7.7 g/dL Normal 6.3-8.0 [facility] Comment on above: Performed By: #### C BCDIF, PT, PTT, CMP #### [facility] [address] [place] [address] Sodium molar conc 140 mmol/L Normal 136-144 [facility] Comment on above: Performed By: #### C BCDIF, PT, PTT, CMP #### [facility] [address] [place] [address] Urea nitrogen mass conc 20 mg/dL Normal 9-24 [facility] Comment on above: Performed By: #### C BCDIF, PT, PTT, CMP #### [facility] [address] [facility] [phone] ED NOTEon 08-07-2018 ED NOTE HNO ID: [id number] Author: Margaret (Rn) AMINATA Lin Service: Nursing Author Type: Registered Nurse Type: ED Notes Filed: 08/07/2018 1:19 PM Note Text: Pt presents to ED with c/o hematuria and clots since yesterday. Pt went to [place] for same thing last night and was told to follow up with a urologist. The urologist that was recommended is out of town and he says the clots are getting bigger and more frequent Normal [facility] ED PROV NOTEon 08-07-2018 Protein mass conc HNO ID: [id number] Author: Arcadio Hess) Suze Service: (none) Author Type: Physician Embedded Hardware Engineer Type: ED Provider Notes Filed: 08/07/2018 10:53 PM Note Text: ED Provider Note Patient Name: Jaron Mireles SERVICE DATE: 08/07/18 History Patient presents with: Hematuria: with clots 63-year-old male presents emergency Department with complaints of hematuria. States he was seen at [facility] yesterday and had his bladder irrigated. States [...] pain. 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 and spouse cam maker used: No PAST MEDICAL HISTORY Diagnosis Date [...] the following: Result Value Ref Range Abs Chugach 0.90 (*) <0.87 k/uL All other components [...] hernia Nonspecific gastric wall thickening Prostate enlargement Financial Quantitative Analyst: CHARLIE Transcribe Date/Time: Aug 07 2018 1:56P [...] SIGNATURE: DARRYL Nieto (Pa) 08/07/18 2253 Normal [facility] Protimeon 08-07-2018 Prothrombin time (PT) Coag time (PPP) 10.1 s Normal 9.7-13.0 [facility] Comment on above: Performed By: #### C BCDIF, PT, PTT, CMP #### [facility] [address] [facility] [phone] Prothrombin time (PT) Coag time (PPP) 1.0 s Normal 0.9-1.3 [facility] Comment on above: Result Comment: Love min K Antagonist (VKA) Therapeutic Range: INR 2 to 3 (Target INR of 2.5) Note: For patients treated with VKA drugs, such as warfarin, the [place] [employer] 2012 Guideline recommends [...] #### C BCDIF, PT, PTT, CMP #### [facility] [address] [facility] [phone] Urinalysison 08-07-2018 Bilirubin, Urine Color interference, unable to perform assay. Critically abnormal Negative [facility] Comment on above: Result Comment: Sugg est correlation with clinical findings and serum bilirubin if clinically indicated. Performed By: #### U A, UAMIC #### [facility] [address] [place] [address] Clarity Nom (U) Turbid Critically abnormal Clear [facility] Comment on above: Performed By: #### U A, UAMIC #### [facility] [address] [place] [address] Color Nom (U) Red Critically abnormal Yellow [facility] Comment on above: Performed By: #### U A, UAMIC #### [facility] [address] [place] [address] Glucose Ql (U) Color interference, unable to perform assay. Critically abnormal Negative [facility] Comment on above: Performed By: #### U A, UAMIC #### [facility] [address] [place] [address] Hemoglobin/Blood,Ur Color interference, unable to perform assay. Critically abnormal Negative [facility] Comment on above: Performed By: #### U A, UAMIC #### [facility] [address] [place] [address] Ketones Ql (U) Color interference, unable to perform assay. Critically abnormal Negative [facility] Comment on above: Performed By: #### U A, UAMIC #### [facility] [address] [place] [address] Leukest Color interference, unable to perform assay. Critically abnormal Negative [facility] Comment on above: Performed By: #### U A, UAMIC #### [facility] [address] [place] [address] Nitrite Ql (U) Color interference, unable to perform assay. Critically abnormal Negative [facility] Comment on above: Performed By: #### U A, UAMIC #### [facility] [address] [place] [address] pH (Bld) Color interference, unable to perform assay. Normal 5.0-8.0 [facility] Comment on above: Performed By: #### U A, UAMIC #### [facility] [address] [place] [address] Protein mass conc (U) Color interference , unable to perform assay. Critically abnormal Negative [facility] Comment on above: Performed By: #### U A, UAMIC #### [facility] [address] [place] [address] Specific [place], Ur Color interference, unable to perform assay. Normal 1.001-1.029 [facility] Comment on above: Performed By: #### U A, UAMIC #### [facility] [address] [address] Urobilinogen Qn (U) Color interference, unable to perform assay. Normal 0.2-1.0 [facility] Comment on above: Performed By: #### U A, UAMIC #### [facility] [address] [place] [address] Urine Cultureon 08-07-2018 Bacteria identified Cx Nom (U) Sp. Request/Comment: - Specimen received in preservative Culture Result - 50,000 - <100,000 CFU/ml Normal urogenital mary Normal [facility] Comment on above: Performed By: #### C BCDIF, PT, PTT, CMP #### [facility] [address] [place] [address] Urine Microscopic (FOR LAB U SE ONLY)on 08-07-2018 Bacteria LM.HPF #/area (Urine sed) Few Critically abnormal 0 [facility] Comment on above: Performed By: #### U A, UAMIC #### [facility] [address] [place] [address] Cast SEE COMMENT Normal 0 [facility] Comment on above: Result Comment: 0 Performed By: #### U A, UAMIC #### [facility] [address] [place] [address] RBC #/vol (U) Too numerous to count Critically abnormal 0-3 [facility] Comment on above: Performed By: #### U A, UAMIC #### [facility] [address] [place] [address] WBC #/vol (Bld) 10-30 Critically abnormal 0-5 [facility] Comment on above: Performed By: #### U A, UAMIC #### [facility] [address] [place] [address] CBC with Diffon 05-30-2017 Abs. Basophil 0.00 k/uL Normal 0.0-0.2 [facility] Comment on above: Result Comment: Perf ormed at [facility] [address] [place] [address] Performed By: #### Светлана FAST, CDP, LIPR, MG, TSHX, VD25 ####[facility] [place] [address] Abs.Neutrophil (Seg) 5.80 k/uL Normal 2.1-6.5 [facility] Comment on above: Performed By: #### Светлана FAST, CDP, LIPR, MG, TSHX, VD25 ####[address] [facility] [place] [address] Auto Diff Performed YES Normal [facility] Comment on above: Performed By: #### Светлана FAST, CDP, LIPR, MG, TSHX, VD25 ####[address] [place] [address] Basophils/100 WBC Auto (Bld) 0 % Normal 0-2 [facility] Comment on above: Performed By: #### Светлана FAST, CDP, LIPR, MG, TSHX, VD25 ####[address] [facility] [place] [address] Eosinophils 0.60 10*3/uL High 0.0-0.4 [facility] Comment on above: Performed By: #### Светлана FAST, CDP, LIPR, MG, TSHX, VD25 ####[address] [facility] [place] [address] Eosinophils/100 leukocytes 6 % High 0-5 [facility] Comment on above: Performed By: #### Z FAST, CDP, LIPR, MG, TSHX, VD25 ####[address] [facility] [place] [address] Erythrocyte distribution width Auto Ratio (RBC) 13.4 % Normal 12.1-15.2 [facility] Comment on above: Performed By: #### Светлана FAST, CDP, LIPR, MG, TSHX, VD25 ####[facility] [place] [address] Erythrocytes (RBC) 5.24 10*6/uL Normal 4.5-5.9 [facility] Comment on above: Performed By: #### Z FAST, CDP, LIPR, MG, TSHX, VD25 ####[facility] [place] [address] Hematocrit (HCT) 48.8 % Normal 41-53 [facility] Comment on above: Performed By: #### Светлана FAST, CDP, LIPR, MG, TSHX, VD25 ####[facility] [place] [address] Hemoglobin mass conc (Bld) 16.3 g/dL Normal 13.5-17.5 [facility] Comment on above: Performed By: #### Светлана FAST, CDP, LIPR, MG, TSHX, VD25 ####[address] [place] [address] Lymphocytes 2.00 10*3/uL Normal 1.0-4.8 [facility] Comment on above: Performed By: #### Светлана FAST, CDP, LIPR, MG, TSHX, VD25 ####[facility] [place] [address] Lymphocytes/100 leukocytes 22 % Normal 13-44 [facility] Comment on above: Performed By: #### Z FAST, CDP, LIPR, MG, TSHX, VD25 ####[facility] [place] [address] MCH 31.1 pg Normal 26-34 [facility] Comment on above: Performed By: #### Z FAST, CDP, LIPR, MG, TSHX, VD25 ####[facility] [place] [address] MCHC mass conc (RBC) 33.4 g/dL Normal 31-37 [facility] Comment on above: Performed By: #### Z FAST, CDP, LIPR, MG, TSHX, VD25 ####[facility] [id number] MCV 93.2 fL Normal 80-100 [facility] Comment on above: Performed By: #### Светлана FAST, CDP, LIPR, MG, TSHX, VD25 ####[facility] [place] [address] Monocytes 0.70 10*3/uL Normal 0.0-1.[address] [facility] Comment on above: Performed By: #### Светлана FAST, CDP, LIPR, MG, TSHX, VD25 ####[address] [place] [address] Monocytes/100 leukocytes 8 % Normal 5-9 [facility] Comment on above: Performed By: #### Светлана FAST, CDP, LIPR, MG, TSHX, VD25 ####[facility] [place] [address] Neutrophil (Seg) 64 % Normal 39-75 [facility] Comment on above: Performed By: #### Светлана FAST, CDP, LIPR, MG, TSHX, VD25 ####[facility] [place] [address] Platelets 256 10*3/uL Normal 140-450 [facility] Comment on above: Performed By: #### Z FAST, CDP, LIPR, MG, TSHX, VD25 ####[facility] [id number] WBC (Leukocytes) 9.0 10*3/uL Normal 3.5-11.0 [facility] Comment on above: Performed By: #### Светлана FAST, CDP, LIPR, MG, TSHX, VD25 ####[facility] [place] [address] Erythrocyte morphology NOT REPORTED Normal [facility] Comment on above: Performed By: #### Z FAST, CDP, LIPR, MG, TSHX, VD25 ####[facility] [place] [address] Granulocytes/100 WBC (Bld) NOT REPORTED Normal 0.00-0.30 [facility] Comment on above: Performed By: #### Z FAST, CDP, LIPR, MG, TSHX, VD25 ####[facility] [place] [address] Immature granulocytes #/vol (Bld) NOT REPORTED Normal 0 [facility] Comment on above: Performed By: #### Светлана FAST, CDP, LIPR, MG, TSHX, VD25 ####[facility] [place] [address] Platelet mean volume (PMV) NOT REPORTED Normal 6.0-12.0 [facility] Comment on above: Performed By: #### Светлана FAST, CDP, LIPR, MG, TSHX, VD25 ####[facility] [place] [address] Platelets NOT REPORTED Normal [facility] Comment on above: Performed By: #### Светлана FAST, CDP, LIPR, MG, TSHX, VD25 ####[facility] [place] [address] WBC Morphology NOT REPORTED Normal [facility] Comment on above: Performed By: #### Z FAST, CDP, LIPR, MG, TSHX, VD25 ####[facility] [place] [address] Lipid Profileon 05-30-2017 Cholesterol 254 mg/dL High <200 [facility] Comment on above: Result Comment: Chol esterol Guidelines: <200 Desirable 200-240 Borderline >240 Undesirable Performed By: #### Z FAST, CDP, LIPR, MG, TSHX, VD25 ####[facility] [place] [address] Cholesterol to HDL Ratio 4.9 {ratio} Normal <5 [facility] Comment on above: Performed By: #### Z FAST, CDP, LIPR, MG, TSHX, VD25 ####[facility] [place] [address] HDL Cholesterol 52 mg/dL Normal >40 [facility] Comment on above: Result Comment: HDL Guidelines: <40 Undesirable 40-59 Borderline >59 Desirable Performed By: #### Z FAST, CDP, LIPR, MG, TSHX, VD25 ####[address] [place] [address] LDL Cholesterol 175 mg/dL High 0-130 [facility] Comment on above: Result Comment: LDL Guidelines: <100 Desirable 100-129 Near to/above Desirable 130-159 Borderline >159 UndesirableDirect (measured) LDL and calculated LDL are not interchangeable tests. Performed By: #### Z FAST, CDP, LIPR, MG, TSHX, VD25 ####[address] [place] [address] Triglyceride 136 mg/dL Normal <[address] [facility] Comment on above: Result Comment: Trig lyceride Guidelines: <150 Desirable 150- 199 Borderline 200-499 High >499 Very high Based on AHA Guidelines for fasting triglyceride, March 2012.Performed at [facility] [address] [place] [address] Performed By: #### Z FAST, CDP, LIPR, MG, TSHX, VD25 ####[address] [place] [address] Cholesterol in VLDL mass conc NOT REPORTED Normal 1-30 [facility] Comment on above: Performed By: #### Z FAST, CDP, LIPR, MG, TSHX, VD25 ####[facility], [place] [id number] Magnesiumon 05-30-2017 Magnesium 2.3 mg/dL Normal 1.6-2.6 [facility] Comment on above: Result Comment: Perf ormed at [facility] [address] [place], [place] [phone] ([phone]) Performed By: #### Z FAST, CDP, LIPR, MG, TSHX, VD25 ####[facility] [place] [phone] Patient fasting?on 7 Patient fasting? YES Normal [facility] Comment on above: Result Comment: Perf ormed at [facility] [address] [facility] [place] [address] [phone] Performed By: #### Z FAST, CDP, LIPR, MG, TSHX, VD25 ####[address] [facility] [place] [phone] TSH w/reflex to FT4on 2016 Thyroid stimulating hormone (TSH) 3.87 m[IU]/L Normal 0.30-5.00 [facility] Comment on above: Result Comment: Perf ormed at [facility] [address] [facility] [place] [address] ([phone]) Performed By: #### Z FAST, CDP, LIPR, MG, TSHX, VD25 ####[address] [facility], [place] [phone] Vitamin D 25 OHon 05-30-2017 Vitamin D 25 OH 35.8 ng/mL Normal 30.0-100.0 [facility] Comment on above: Result Comment: Refe rence Range:Vitamin D status Range Deficiency <20 ng/mL Mild Deficiency 20-30 ng/mL Sufficiency 30-100 ng/mL Toxicity >100 ng/mLPerformed at [facility] [address] [facility] [place] [address] (315) Performed By: #### Z FAST, CDP, LIPR, MG, TSHX, VD25 ####[facility] [place] [address] XR CHEST STANDARD TWO VWon 1 07-31-2016 XR CHEST STANDARD TWO VW TWO-VIEW CHESTREASON FOR STUDY: History of cardiac disease, follow-up evaluation.COMPARISON : None.REPORT: Trachea, mediastinum, and heart size are unremarkable. The lungs are clear and well aerated. No effusion or pneumothorax or nodules noted. Diaphragm and bony elements are intact.IMPRESSION: Nonacute two-view chest.Interpreted by:Octavio Jarrell, DOSigned by:Octavio Jarrell, DO05/30/17Final result Normal [facility] CBC with Diffon 05-22-2017 Basophils Auto #/vol (Bld) 0.1 K/mcL Normal 0-0.2 [facility] Comment on above: Performed By: #### C BCDIF, EDCTNI, CMET, LIPASE, NTPROBNP ####Unless otherwise noted, all testing performed by [address] [phone]: [id number] Director: Carrillo Willis M.D. Basophils/100 WBC Auto (Bld) 0.9 % Normal [facility] Comment on above: Performed By: #### C BCDIF, EDCTNI, CMET, LIPASE, NTPROBNP ####Unless otherwise noted, all testing performed by [address] [phone]: [id number] Director: Carrillo Willsi M.D. Eosinophils 0.2 K/mcL Normal 0-0.5 [facility] Comment on above: Performed By: #### C BCDIF, EDCTNI, CMET, LIPASE, NTPROBNP ####Unless otherwise noted, all testing performed by [address] [phone]: [id number] Director: Carrillo Willis M.D. Eosinophils/100 leukocytes 2.4 % Normal [facility] Comment on above: Performed By: #### C BCDIF, EDCTNI, CMET, LIPASE, NTPROBNP ####Unless otherwise noted, all testing performed by [address] [phone]: [id number] Director: Carrillo Willis M.D. Erythrocyte distribution width Auto Ratio (RBC) 12.8 % Normal 10-14.3 [facility] Comment on above: Performed By: #### C BCDIF, EDCTNI, CMET, LIPASE, NTPROBNP ####Unless otherwise noted, all testing performed by [place] [id number]: [id number] Director: Carrillo Willis M.D. Erythrocytes (RBC) 5.09 M/mcL Normal 4.0-5.5 [facility] Comment on above: Performed By: #### C BCDIF, EDCTNI, CMET, LIPASE, NTPROBNP ####Unless otherwise noted, all testing performed by [address] [phone]: [id number] Director: Carrillo Willis M.D. Hematocrit (HCT) 47.7 % Normal 37.9-49.2 [facility] [place] [facility] Comment on above: Performed By: #### C BCDIF, EDCTNI, CMET, LIPASE, NTPROBNP ####Unless otherwise noted, all testing performed by [address] [phone]: [id number] Director: Carrillo Willis M.D. Hemoglobin mass conc (Bld) 16.6 g/dL Normal 12.9-16.9 [facility] Comment on above: Performed By: #### C BCDIF, EDCTNI, CMET, LIPASE, NTPROBNP ####Unless otherwise noted, all testing performed by [address] [phone]: [id number] Director: Carrillo Willis M.D. Lymphocytes 1.7 K/mcL Normal 0.9-3.6 [facility] Comment on above: Performed By: #### C BCDIF, EDCTNI, CMET, LIPASE, NTPROBNP ####Unless otherwise noted, all testing performed by [address] [id number]: [id number] Director: Carrillo Willis M.D. Lymphocytes/100 leukocytes 19.4 % Normal [facility] Comment on above: Performed By: #### C BCDIF, EDCTNI, CMET, LIPASE, NTPROBNP ####Unless otherwise noted, all testing performed by [address] [phone]: [id number] Director: Carrillo Willis M.D. MCH 32.5 pg Normal 27.7-34.6 [facility] Comment on above: Performed By: #### C BCDIF, EDCTNI, CMET, LIPASE, NTPROBNP ####Unless otherwise noted, all testing performed by [address] [phone]: [id number] Director: Carrillo Willis M.D. MCHC mass conc (RBC) 34.8 g/dL Normal 32.9-35.5 [facility] Comment on above: Performed By: #### C BCDIF, EDCTNI, CMET, LIPASE, NTPROBNP ####Unless otherwise noted, all testing performed by [address] [phone]: [id number] Director: Carrillo Willis M.D. MCV 93.6 fL Normal 82.8-99.3 [facility] Comment on above: Performed By: #### C BCDIF, EDCTNI, CMET, LIPASE, NTPROBNP ####Unless otherwise noted, all testing performed by [address] [phone]: [id number] Director: Carrillo Willis M.D. Monocytes 0.6 K/mcL Normal 0.2-0.6 [facility] Comment on above: Performed By: #### C BCDIF, EDCTNI, CMET, LIPASE, NTPROBNP ####Unless otherwise noted, all testing performed by [address] [phone]: [id number] Director: Carrillo Willis M.D. Monocytes/100 leukocytes 6.8 % Normal [facility] Comment on above: Performed By: #### C BCDIF, EDCTNI, CMET, LIPASE, NTPROBNP ####Unless otherwise noted, all testing performed by [address] [phone]: [id number] Director: Carrillo Willis M.D. Neutrophils 6.3 K/mcL Normal 1.4-6.8 [facility] Comment on above: Performed By: #### C BCDIF, EDCTNI, CMET, LIPASE, NTPROBNP ####Unless otherwise noted, all testing performed by [address] [phone]: [id number] Director: Carrillo Willis M.D. Platelet mean volume (PMV) 8.4 fL Normal 6.6-10.8 [facility] Comment on above: Performed By: #### C BCDIF, EDCTNI, CMET, LIPASE, NTPROBNP ####Unless otherwise noted, all testing performed by [address] [phone]: [id number] Director: Carrillo Willis M.D. Platelets 219 K/mcL Normal 139-354 [facility] Comment on above: Performed By: #### C BCDIF, EDCTNI, CMET, LIPASE, NTPROBNP ####Unless otherwise noted, all testing performed by [address] [phone]: [id number] Director: Carrillo Willis M.D. Segmented Neut % 70.5 % Normal [facility] Comment on above: Performed By: #### C BCDIF, EDCTNI, CMET, LIPASE, NTPROBNP ####Unless otherwise noted, all testing performed by [address] [phone]: [id number] Director: Carrillo Willis M.D. WBC (Leukocytes) 9.0 K/mcL Normal 3.6-10.4 [facility] Comment on above: Performed By: #### C BCDIF, EDCTNI, CMET, LIPASE, NTPROBNP ####Unless otherwise noted, all testing performed by [address] [phone]: [id number] Director: Carrillo Willis M.D. CHEST PA AND LATERALon 05-22 CHEST PA AND LATERAL Final ReportAccession No: [id number] Performed: May 22 2017 11:59AMExamination: CHEST [...] Physician: JORGE GIRON D.O.Trans: : cc: Normal [facility] Comprehensive Metabolic Pane coral 05-22-2017 Alanine aminotransferase (ALT) 23 U/L Normal 14-65 [facility] Comment on above: Result Comment: This test result might be falsely depressed or falsely elevated onsamples drawn from patients taking Sulfasalazine and Sulfapyridine.Venipuncture should occur prior to taking either of these drugs. Performed By: #### C BCDIF, EDCTNI, CMET, LIPASE, NTPROBNP ####Unless otherwise noted, all testing performed by [address], [place] [phone]: [id number] Director: Carrillo Willis M.D. Albumin 4.1 g/dL Normal 3.2-5.2 [facility] Comment on above: Performed By: #### C BCDIF, EDCTNI, CMET, LIPASE, NTPROBNP ####Unless otherwise noted, all testing performed by [address] [phone]: [id number] Director: Carrillo Willis M.D. Alkaline phosphatase (ALP) 85 U/L Normal 40-150 [facility] Comment on above: Performed By: #### C BCDIF, EDCTNI, CMET, LIPASE, NTPROBNP ####Unless otherwise noted, all testing performed by [address] [phone]: [id number] Director: Carrillo Willis M.D. Aspartate aminotransferase (AST) 15 U/L Normal 0-45 [facility] Comment on above: Result Comment: This test result might be falsely depressed or falsely elevated onsamples drawn from patients taking Sulfasalazine and Sulfapyridine.Venipuncture should occur prior to taking either of these drugs. Performed By: #### C BCDIF, EDCTNI, CMET, LIPASE, NTPROBNP ####Unless otherwise noted, all testing performed by [address] [phone]: [id number] Director: Carrillo Willis M.D. Bilirubin (total) 0.4 mg/dL Normal 0.3-1.2 [facility] Comment on above: Performed By: #### C BCDIF, EDCTNI, CMET, LIPASE, NTPROBNP ####Unless otherwise noted, all testing performed by [address] [phone]: [id number] Director: Carrillo Willis M.D. Calcium 9.5 mg/dL Normal 8.4-10.2 [facility] Comment on above: Performed By: #### C BCDIF, EDCTNI, CMET, LIPASE, NTPROBNP ####Unless otherwise noted, all testing performed by [address] [phone]: [id number] Director: Carrillo Willis M.D. Chloride 104 mmol/L Normal 98-108 [facility] Comment on above: Performed By: #### C BCDIF, EDCTNI, CMET, LIPASE, NTPROBNP ####Unless otherwise noted, all testing performed by [address] [phone]: [id number] Director: Carrillo Willis M.D. CO2 29 mmol/L Normal 21-32 [facility] Comment on above: Performed By: #### C BCDIF, EDCTNI, CMET, LIPASE, NTPROBNP ####Unless otherwise noted, all testing performed by [address] [phone]: [id number] Director: Carrillo Willis M.D. Creatinine 0.91 mg/dL Normal 0.80-1.30 [facility] Comment on above: Performed By: #### C BCDIF, EDCTNI, CMET, LIPASE, NTPROBNP ####Unless otherwise noted, all testing performed by [address] [id number]: [id number] Director: Carrillo Willis M.D. eGFR (black) mL/min/{1.73_m2} Normal [facility] Comment on above: Result Comment: Afri can Peruvian GFR Calc Performed By: #### C BCDIF, EDCTNI, CMET, LIPASE, NTPROBNP ####Unless otherwise noted, all testing performed by [address] [phone]: [id number] Director: Carrillo Willis M.D. eGFR (non-black) mL/min/{1.73_m2} Normal [facility] Comment on above: Result Comment: Non- [...] ####Unless otherwise noted, all testing performed by [address] [phone]: [id number] Director: Carrillo Willis M.D. Glucose mass conc 105 mg/dL High 70-99 [facility] Comment on above: Result Comment: This test result might be falsely depressed or falsely elevated onsamples drawn from patients taking Sulfasalazine and Sulfapyridine.Venipuncture should occur prior to taking either of these drugs. Performed By: #### C BCDIF, EDCTNI, CMET, LIPASE, NTPROBNP ####Unless otherwise noted, all testing performed by [address] [phone]: [id number] Director: Carrillo Willis M.D. Potassium molar conc 4.3 mmol/L Normal 3.5-5.1 [facility] Comment on above: Performed By: #### C BCDIF, EDCTNI, CMET, LIPASE, NTPROBNP ####Unless otherwise noted, all testing performed by [address] [id number]: [id number] Director: Carrillo Willis M.D. Protein 7.4 g/dL Normal 6.0-8.0 [facility] Comment on above: Performed By: #### C BCDIF, EDCTNI, CMET, LIPASE, NTPROBNP ####Unless otherwise noted, all testing performed by [address] [phone]: [id number] Director: Carrillo Willis M.D. Sodium 140 mmol/L Normal 135-145 [facility] Comment on above: Performed By: #### C BCDIF, EDCTNI, CMET, LIPASE, NTPROBNP ####Unless otherwise noted, all testing performed by [address] [phone]: [id number] Director: Carrillo Willis M.D. Urea nitrogen 16 mg/dL Normal 8-25 [facility] Comment on above: Performed By: #### C BCDIF, EDCTNI, CMET, LIPASE, NTPROBNP ####Unless otherwise noted, all testing performed by [address] [phone]: [id number] Director: Carrillo Willis M.D. ED Cardiac Troponin-Ion 12- Troponin I.cardiac mass conc ng/mL Normal < 45 [facility] Comment on above: Result Comment: Elev ation [...] ####Unless otherwise noted, all testing performed by [address] [id number]: [id number] Director: Carrillo Willis M.D. Lipaseon 05-22-2017 Lipase 124 U/L Normal 73-393 [facility] Comment on above: Performed By: #### C BCDIF, EDCTNI, CMET, LIPASE, NTPROBNP ####Unless otherwise noted, all testing performed by [address] [phone]: [id number] Director: Carrillo Willis M.D. NT-Pro BNP, Serumon 05-22-20 17 BNP 52 pg/mL Normal 0-125 [facility] Comment on above: Performed By: #### C BCDIF, EDCTNI, CMET, LIPASE, NTPROBNP ####Unless otherwise noted, all testing performed by [address] [phone]: [id number] Director: Carrillo Willis M.D. Vital Signs Date Time Vital Sign Value Performing Clinician Facility 12-14-2024 10:55-0400 Body height 190.[address] Melvin Trujillo MD Work Phone: [facility] 12-14-2024 10:55-0400 Body mass index (BMI) [Ratio] 22.4 kg/m2 Dr. Melvin Trujillo MD Work Phone: [facility] 12-14-2024 10:55-0400 Body weight 81.[address] Melvin Trujillo MD Work Phone: [facility] 12-14-2024 10:55-0400 Diastolic blood pressure 76 mm[Hg] Dr. Melvin Trujillo MD Work Phone: [facility] 12-14-2024 10:55-0400 Heart rate 71 /min Dr. Melvin Trujillo MD Work Phone: [facility] 12-14-2024 10:55-0400 Respiratory rate 16 /min Dr. Melvin Trujillo MD Work Phone: [facility] 12-14-2024 10:55-0400 Systolic blood pressure 124 mm[Hg] Dr. Melvin Trujillo MD Work Phone: [facility] 10-04-2022 10:47-0400 Body height 190.[address] Melvin Trujillo Work Phone: [facility] 10-04-2022 10:47-0400 Body mass index (BMI) [Ratio] 20.7 kg/m2 Dr. Melvin Trujillo Work Phone: [phone] [place] [address] 10-04-2022 10:47-0400 Body weight 75.[address] Melvin Trujillo Work Phone: [facility] 10-04-2022 10:47-0400 Diastolic blood pressure 73 mm[Hg] Dr. Melvin Trujillo Work Phone: [facility] 10-04-2022 10:47-0400 Heart rate 68 /min Dr. Melvin Trujillo Work Phone: [facility] 10-04-2022 10:47-0400 Respiratory rate 18 /min Dr. Melvin Trujillo Work Phone: [facility] 10-04-2022 10:47-0400 SaO2% (BldA) [Mass fraction] 99 % Dr. Melvin Trujillo Work Phone: [facility] 10-04-2022 10:47-0400 Systolic blood pressure 131 mm[Hg] Dr. Melvin Trujillo Work Phone: [facility] 05-22-2022 10:28-0500 Body height 190.[address] Melvin Trujillo Work Phone: [facility] 05-22-2022 10:28-0500 Body weight 73.[address] Melvin Trujillo Work Phone: [facility] 05-21-2022 07:45-0500 Body mass index (BMI) [Ratio] 20.3 kg/m2 Dr. Melvin Trujillo Work Phone: [facility] 05-16-2022 09:22-0500 Body mass index (BMI) [Ratio] 20.3 kg/m2 Dr. Melvin Trujillo Work Phone: [facility] 05-16-2022 09:22-0500 Body weight 73.[address] Melvin Trujillo Work Phone: [facility] 05-16-2022 09:22-0500 Diastolic blood pressure 84 mm[Hg] Dr. Melvin Trujillo Work Phone: [facility] 05-16-2022 09:22-0500 Heart rate 79 /min Dr. Melvin Trujillo Work Phone: [facility] 05-16-2022 09:22-0500 Respiratory rate 16 /min Dr. Melvin Trujillo Work Phone: [facility] 05-16-2022 09:22-0500 Systolic blood pressure 142 mm[Hg] Dr. Melvin Trujillo Work Phone: [facility] 01-24-2022 08:50-0400 Body mass index (BMI) [Ratio] 20.2 kg/m2 Dr. Melvin Trujillo Work Phone: [facility] Work Phone: 01-24-2022 08:50-0400 Body temperature 97.8 [degF] Dr. Melvin Trujillo Work Phone: [facility] Work Phone: 01-24-2022 08:50-0400 Body weight 73.[address] Melvin Trujillo Work Phone: [facility] Work Phone: 01-24-2022 08:50-0400 Diastolic blood pressure 82 mm[Hg] Dr. Melvin Trujillo Work Phone: [facility] Work Phone: 01-24-2022 08:50-0400 Heart rate 79 /min Dr. Melvin Trujillo Work Phone: [facility] Work Phone: 01-24-2022 08:50-0400 Respiratory rate 17 /min Dr. Melvin Trujillo Work Phone: [facility] Work Phone: 01-24-2022 08:50-0400 SaO2% (BldA) [Mass fraction] 96 % Dr. Melvin Trujillo Work Phone: [facility] Work Phone: 01-24-2022 08:50-0400 Systolic blood pressure 149 mm[Hg] Dr. Melvin Trujillo Work Phone: [facility] Work Phone: 11-27-2021 10:31-0400 Body height 190.[address] Melvin Trujillo Work Phone: [facility] Work Phone: 11-27-2021 10:31-0400 Body mass index (BMI) [Ratio] 22.6 kg/m2 Dr. Melvin Trujillo Work Phone: [facility] Work Phone: 11-27-2021 10:31-0400 Body weight 82.[address] Melvin Trujillo Work Phone: [facility] Work Phone: 11-27-2021 10:31-0400 Diastolic blood pressure 74 mm[Hg] Dr. Melvin Trujillo Work Phone: [facility] Work Phone: 11-27-2021 10:31-0400 Heart rate 82 /min Dr. Melvin Trujillo Work Phone: [facility] Work Phone: 11-27-2021 10:31-0400 Respiratory rate 18 /min Dr. Melvin Trujillo Work Phone: [facility] Work Phone: 11-27-2021 10:31-0400 SaO2% (BldA) [Mass fraction] 94 % Dr. Melvin Trujillo Work Phone: [facility] Work Phone: 11-27-2021 10:31-0400 Systolic blood pressure 122 mm[Hg] Dr. Melvin Trujillo Work Phone: [facility] Work Phone: 08-21-2021 10:28-0400 Body height 190.[address] Melvin Trujillo Work Phone: [facility] Work Phone: 08-21-2021 10:28-0400 Body mass index (BMI) [Ratio] 23.6 kg/m2 Dr. Melvin Trujillo Work Phone: [facility] Work Phone: 08-21-2021 10:28-0400 Body weight 85.[address] Melvin Trujillo Work Phone: [facility] Work Phone: 08-21-2021 10:28-0400 Diastolic blood pressure 80 mm[Hg] Dr. Melvin Trujillo Work Phone: [facility] Work Phone: 08-21-2021 10:28-0400 Heart rate 76 /min Dr. Melvin Trujillo Work Phone: [facility] Work Phone: 08-21-2021 10:28-0400 Respiratory rate 18 /min Dr. Melvin Trujillo Work Phone: [facility] Work Phone: 08-21-2021 10:28-0400 Systolic blood pressure 138 mm[Hg] Dr. Melvin Trujillo Work Phone: [facility] Work Phone: 08-21-2021 10:28-0400 Body height 190.[address] Melvin Trujillo Work Phone: [facility] Work Phone: 08-21-2021 10:28-0400 Body mass index (BMI) [Ratio] 23.6 kg/m2 Dr. Melvin Trujillo Work Phone: [facility] Work Phone: 08-21-2021 10:28-0400 Body weight 85.[address] Melvin Trujillo Work Phone: [facility] Work Phone: 08-21-2021 10:28-0400 Diastolic blood pressure 80 mm[Hg] Dr. Melvin Trujillo Work Phone: [facility] Work Phone: 08-21-2021 10:28-0400 Heart rate 76 /min Dr. Melvin Trujillo Work Phone: [facility] Work Phone: 08-21-2021 10:28-0400 Respiratory rate 18 /min Dr. Melvin Trujillo Work Phone: [facility] Work Phone: 08-21-2021 10:28-0400 Systolic blood pressure 138 mm[Hg] Dr. Melvin Trujillo Work Phone: [facility] Work Phone: 07-27-2021 13:30-0500 Body temperature 98.2 [degF] Dr. Melvin Trujillo Work Phone: [facility] Work Phone: 07-27-2021 13:30-0500 Diastolic blood pressure 59 mm[Hg] Dr. Melvin Trujillo Work Phone: [facility] Work Phone: 07-27-2021 13:30-0500 Heart rate 67 /min Dr. Melvin Trujillo Work Phone: [facility] Work Phone: 07-27-2021 13:30-0500 Respiratory rate 14 /min Dr. Melvin Trujillo Work Phone: [facility] Work Phone: 07-27-2021 13:30-0500 SaO2% (BldA) [Mass fraction] 96 % Dr. Melvin Trujillo Work Phone: [facility] Work Phone: 07-27-2021 13:30-0500 Systolic blood pressure 103 mm[Hg] Dr. Melvin Trujillo Work Phone: [facility] Work Phone: 07-27-2021 12:30-0500 Body temperature 98.2 [degF] Dr. Melvin Trujillo Work Phone: [facility] Work Phone: 07-27-2021 12:30-0500 Diastolic blood pressure 59 mm[Hg] Dr. Melvin Trujillo Work Phone: [facility] Work Phone: 07-27-2021 12:30-0500 Heart rate 67 /min Dr. Melvin Trujillo Work Phone: [facility] Work Phone: 07-27-2021 12:30-0500 Respiratory rate 14 /min Dr. Melvin Trujillo Work Phone: [facility] Work Phone: 07-27-2021 12:30-0500 SaO2% (BldA) [Mass fraction] 96 % Dr. Melvin Trujillo Work Phone: [facility] Work Phone: 07-27-2021 12:30-0500 Systolic blood pressure 103 mm[Hg] Dr. Melvin Trujillo Work Phone: [facility] Work Phone: 07-26-2021 19:54-0500 Body mass index (BMI) [Ratio] 22.8 kg/m2 Dr. Melvin Trujillo Work Phone: [facility] Work Phone: 07-26-2021 19:54-0500 Body weight 83.[address] Melvin Trujillo Work Phone: [facility] Work Phone: 07-26-2021 18:54-0500 Body mass index (BMI) [Ratio] 22.8 kg/m2 Dr. Melvin Trujillo Work Phone: [facility] Work Phone: 07-26-2021 18:54-0500 Body weight 83.[address] Melvin Trujillo Work Phone: [facility] Work Phone: 03-06-2019 17:00-0400 Pulse (Heart Rate) 72 /min [facility] 03-06-2019 17:00-0400 Pulse Oximetry 99 % [facility] 03-06-2019 15:30-0400 Respiratory Rate 18 /min [facility] 03-06-2019 13:00-0400 BP Diastolic 82 mm[Hg] [facility] 03-06-2019 13:00-0400 BP Systolic 122 mm[Hg] [facility] 03-06-2019 12:15-0400 Body Temperature 97.59 [degF] [facility] Encounters Encounter Date Encounter Type Care Provider Facility Start: 02-28-2025 Patient encounter procedure Kade Bright LOAN ADVISER-C -Cat Scan [facility] Work Phone: Start: 02-28-2025 End: 02-28-2025 ambulatory Melvin Trujillo Facility:[facility] Start: 02-22-2025 End: 02-22-[address] Melvin Trujillo MD Work Phone: -Laboratory Start: 02-22-2025 End: 02-22-[address] Hilario Valladares MD -Laboratory Work Phone: Start: 02-22-2025 End: 02-22-2025 ambulatory Melvin Trujillo Facility:[facility] Start: 12-14-2024 End: 12-14-2024 Patient encounter procedure Chris Mirna Edwin ROMANO-C -[facility] Work Phone: Start: 12-14-2024 End: 12-14-[address] Melvin Trujillo MD Work Phone: -[facility] Start: 07-20-2024 End: 07-20-2024 ambulatory Melvin Trujillo Facility:[facility] Start: 09-23-2023 End: 09-23-2023 ambulatory [facility] Work Phone: Start: 09-23-2023 End: 09-23-2023 Patient encounter procedure [facility] Start: 05-08-2023 End: 05-08-2023 ambulatory [facility] Work Phone: Start: 05-08-2023 End: 05-08-2023 Patient encounter procedure [facility] Work Phone: Start: 01-21-2023 End: 01-21-[address] Melvin Trujillo Work Phone: [facility] Work Phone: Start: 01-21-2023 End: 01-21-[address] Melvin Trujillo Work Phone: [facility] Start: 11-26-2022 End: 11-26-[address] Melvin Trujillo Work Phone: [facility] Work Phone: Start: 11-26-2022 End: 11-26-[address] Melvin Trujillo Work Phone: [facility]-Cat Scan, [facility] Start: 11-06-2022 End: 11-06-[address] Vinayak Edmonds Facility:[id number] Start: 11-06-2022 End: 11-06-2022 Subsequent hospital visit by physician Vinayak Edmonds DO Work Phone: [facility] Comment on above: Encounter for screen ing for malignant neoplasm of colon; Polyp of colon; Essential (primary) hypertension; Pure hypercholesterolemia, unspecified; Benign prostatic hyperplasia without lower urinary tract symptoms; Chronic obstructive pulmonary disease, unspecified ([facility]) Start: 10-11-2022 End: 10-11-[address] Melvin Trujillo Work Phone: [facility] Work Phone: Start: 10-11-2022 End: 10-11-[address] Melvin Trujillo Work Phone: [facility]-Laboratory Start: 10-04-2022 End: 10-04-[address] Melvin Trujillo Work Phone: [facility] Start: 07-15-2022 End: 07-15-[address] Melvin Trujillo Work Phone: [facility] Work Phone: Start: 07-15-2022 End: 07-15-[address] Melvin Trujillo Work Phone: [facility]-Laboratory Start: 06-21-2022 Non-patient / Non-visit Dr. Marshal Trujillo Work Phone: [facility] Start: 06-21-2022 Non-patient / Non-visit Dr. Marshal Trujillo Work Phone: [facility] Start: 06-21-2022 End: 06-21-[address] Melvin Trujillo Work Phone: [facility] Work Phone: Start: 06-21-2022 End: 06-21-[address] Melvin Trujillo Work Phone: [facility]-Cardiovascula r Services Start: 05-22-2022 Non-patient / Non-visit Dr. Marshal Trujillo Work Phone: [facility] Start: 05-22-2022 End: 05-22-2022 Admission to same day surgery center Dr. Melvin Trujillo Work Phone: [facility]-Property Manager/Special Procedures Start: 05-22-2022 End: 05-22-[address] Melvin Trujillo Work Phone: [facility] Work Phone: Start: 05-16-2022 End: 05-16-[address] Melvin Trujillo Work Phone: [facility] Work Phone: Start: 05-16-2022 End: 05-16-[address] Melvin Trujillo Work Phone: [facility]-Radiology, [facility] Start: 05-16-2022 End: 05-16-[address] Melvin Trujillo Work Phone: [facility] Start: 01-24-2022 End: 01-24-[address] Melvin Trujillo Work Phone: [facility]-Pulmonary Medicine [facility] Start: 12-04-2021 End: 12-04-[address] Melvin Trujillo Work Phone: [facility] Start: 11-28-2021 End: 11-28-[address] Melvin Trujillo Work Phone: [facility]-Cardiovascula r Services Start: 11-27-2021 End: 11-27-[address] Melvin Trujillo Work Phone: [facility] Start: 11-20-2021 End: 11-20-[address] Melvin Trujillo Work Phone: [facility]-Cat Scan, [facility] Start: 09-04-2021 End: 09-04-[address] Melvin Trujillo Work Phone: [facility]-Cardiovascula r Services Start: 08-21-2021 End: 08-21-[address] Melvin Trujillo Work Phone: [facility] Start: 07-27-2021 Non-patient / Non-visit Dr. Marshal Trujillo Work Phone: [facility] Inpatient Physicians Start: 07-27-2021 Non-patient / Non-visit Dr. Marshal Trujillo Work Phone: [facility] Start: 07-26-2021 Non-patient / Non-visit Dr. Marshal Trujillo Work Phone: [facility] Start: 07-26-2021 End: 07-27-2021 Evaluation and management of inpatient Dr. Melvin Trujillo Work Phone: [facility]-Progressive Care Unit Start: 07-17-2020 End: 07-17-2020 Orders Only Ludy Jasmyne Mitchell Work Phone: [facility] Start: 07-20-2019 End: 07-24-2019 Patient encounter procedure TYSHAWN HAYDEN [facility] Start: 03-06-2019 End: 03-06-2019 Emergency department patient visit LUIS ENRIQUE LEONG [facility] Start: 03-06-2019 End: 03-06-2019 Emergency department patient visit Yariel Stewartganga Mercado Work Phone: [facility] Emergency Department Comment on above: Chest pain, unspecif ied type (Primary Dx) Start: 08-07-2018 End: 08-07-2018 Emergency department patient visit [facility] Start: 05-30-2017 End: 05-31-2017 Amb[facility] Start: 05-22-2017 End: 05-22-2017 Emergency department patient visit Carrillo Bernal Facility:[facility] Date Procedure Procedure Detail Performing Clinician Start: [...] 11-26-[address] Melvin Robison [facility] Work Phone: Start: 11-06-2022 SURGICAL PATHOLOGY RESULTS Vinayak Bushra Grey DO Work Phone: Start: 11-06-2022 Colonoscopy stoma dx including collj spec spx Melvin Trujillo MD Work Phone: Start: 11-06-2022 Colonoscopy Vinayak liu DO Work Phone: Start: 05-16-2022 Plain chest X-ray Dr. Jackie Trujillo Work Phone: Start: 11-20-[address] Melvin Robison [facility] Work Phone: Start: 07-26-2021 Plain chest [...] of coronary artery stent placement Chris Pineda LOAN ADVISERShavonC Comment on above: [id number] LCx w/ 2.5 x 8 mm Elunir [...] 11-06-2032 Screening for malignant neoplasm of colon [facility] Start: 02-07-2023 Influenza vaccination Influenza Vaccine (#1) [facility] Start: 07-27-2021 Patient discharge [facility] Work Phone: Start: 07-27-2021 Notification of physician [facility] Work Phone: Start: 07-27-2021 Patient education [facility] Work Phone: Start: 07-27-2021 Pulse taking [facility] Work Phone: Start: 07-27-2021 Taking patient vital signs [facility] Work Phone: Start: 07-27-2021 Wound care [facility] Work Phone: Start: 07-27-2021 [facility] Work Phone: Start: 07-26-2021 Medication not administered [facility] Work Phone: Start: 07-26-2021 End: 07-26-2021 [facility] Work Phone: Start: 07-26-2021 Following clinical pathway protocol [facility] Work Phone: Start: 07-26-2021 Assessment of risk of venous thromboembolism [facility] Work Phone: Start: 07-26-2021 End: 07-26-2021 Catheterization of vein [facility] Work Phone: Start: 07-26-2021 Incentive spirometry [facility] Work Phone: Start: 07-26-2021 Inhalation therapy procedure [facility] Work Phone: Start: 07-26-2021 Insertion of catheter into peripheral vein [facility] Work Phone: Start: 07-26-2021 Measuring intake and output [facility] Work Phone: Start: 07-26-2021 Providing care according to standard [facility] Work Phone: Start: 07-26-2021 Provision of activity privileges [facility] Work Phone: Start: 07-26-2021 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 Start: 2004 Administration of herpes zoster vaccine Zoster Vaccines (1 of 2) [facility] Start: 2004 Screening for malignant neoplasm [facility] Start: 2004 Zoster Vaccines (1 of 2) Zoster Vaccines (1 of 2) [facility] Start: 1976 DTaP/Tdap/Td Vaccines (1 - Tdap) DTaP/Tdap/Td Vaccines (1 - Tdap) [facility] Start: 1972 Hepatitis C antibody, confirmatory test [facility]atitis C Screening [facility] Start: 1972 Hepatitis C screening Hepatitis C Screening [facility] Start: 1970 COVID-19 Vaccine (1 of 2) COVID-19 Vaccine (1 of 2) [facility] Start: 1966 Adolescent depression screening assessment Depression Screening (PHQ9) [facility] Start: 1960 Pneumococcal Vaccine: 65+ Years (1 - PCV) Pneumococcal Vaccine: 65+ Years (1 - PCV) [facility] Start: 1957 History and physical examination, annual for health maintenance Wellness Visit [facility] Start: 1954 COVID-19 Vaccine (#1) COVID-19 Vaccine (#1) [facility] Start: 1954 Fall risk assessment Falls Risk Assessment [facility] Start: 1954 Hepatitis C antibody, confirmatory test HEPATITIS [facility]ING [facility] Start: 1954 Lipid panel Lipid Panel [facility] Start: 1954 Prostate specific antigen measurement PSA Level [facility] Start: 1954 Screening for malignant neoplasm of colon [facility] Start: 1954 Tetanus vaccination [facility] Start: 1954 Yearly Adult Physical Yearly Adult Physical [facility] Catheterization of [facility] Work Phone: Catheterization of l [facility] Exercise tolerance test [facility] Work Phone: Measurement of respi ratory function [facility] Work Phone: Patient Education ED Chest Pain, Noncardiac [facility] Work Phone: Patient referral [facility] Work Phone: Payers Date Payer Category Payer Self-pay [id number] 2022 Unknown [id number] 2019 Medicare [id number] 2019 Medicare MEDICARE MEDICAR E PART A & B [id number] 2019-Present [place] [id number] 2014 Unknown [id number] 2011 Unknown [id number] 2011 Unknown MMO MEDICAL M[employer]U [employer] SUPERMED CLASSIC xxxxxxxxxxxx 2011-Present [id number] 2011 Unknown MMO MEDICAL MUTU AL SUPERMED CLASSIC [id number] 2011-Present [id number] 1954 Unknown [id number] 1954 Unknown [id number] 1954 Unknown [id number] 9 Unknown [id number] Unknown [id number] Unknown [id number] Unknown [id number] Social History Date Type Detail Facility Tobacco smoking status NHIS Unknown if ever smoked [facility] Start: 1955 Sex Assigned At Not on file [facility] Start: 08-21-2021 End: 10-04-2022 Tobacco smoking status NHIS Unknown if ever smoked [facility] Start: 08-26-2018 Cigarettes [facility] Start: 1955 Sex Assigned At Male [facility] Gender identity Not on file [facility] Start: 12-14-2024 Tobacco smoking status NHIS Smokes tobacco daily (finding) [facility] Medical Equipment Procedure Code Equipment Code Equipment [...] Assessment Result Facility 07-27-2021 Functional status Ambulates;Bedrest [facility] Work Phone: 07-27-2021 Functional status Assistive Devices None [facility] Work Phone: Mental Status Date Assessment Result Facility 07-27-2021 Cognitive function Voice/Name [facility] Work Phone: Clinical Notes 03-04-2019 to 12-14-2024 Note Date & Type Note Facility 12-14-2024 Evaluation note Diagnosis Onset Date Resolution Essential (primary) hypertension chronic December 14, 2024 10:20am History of coronary artery stent placement March 04, 2019 chronic December 14, 2024 10:20am Hyperlipidemia chronic December 14, 2024 10:20am Nicotine dependence chronic December 14, 2024 10:20am [facility] Work Phone: 1(162) 225-183005-31-2023 NotePatient Name: Jaron Mireles Procedure Date: 11/06/2022 2:21 PM Date of : 1955 Admit Type: Outpatient Site: [facility] Proc RM 1 Ethnicity: Not or Race: White Attending MD: Vinayak Edmonds DO, [id number] Procedure: Colonoscopy Indications: Surveillance: Personal history of colonic polyps (unknown histology) on last colonoscopy more than 5 years ago Providers: Vinayak Edmonds DO (Doctor), Damaris Ferrari RN (Nurse), Joel Sanchez, Machine Cloth Trimmer Referring: Melvin Trujillo MD Medicines: Midazolam 7.5 [...] the patient. 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 Essential (primary) hypertension chronic Hyperlipidemia chronic History of coronary artery stent placement February 082018 resolved Fatigue acute Essential (primary) hypertension chronic Hyperlipidemia chronic History of coronary artery stent placement February 082018 resolved [facility] Work Phone: 1(973) 286-445509-26-2019 Evaluation note* Diagnosis Onset Date Resolution Status Nicotine dependence chronic Obstructive Sleep Apnea-Hypopnea Syndrome noneactive Chest pain acute Hyperlipidemia chronic History of coronary artery stent placement February 082018 resolved [facility] Work Phone: 1(400) 911-939809-26-2019 Evaluation note* Diagnosis Onset Date Resolution Status Chest pain acute Hyperlipidemia chronic History of coronary artery stent placement February 082018 resolved [facility] Work Phone: 1(937) 307-466209-26-2019 Evaluation note* Diagnosis Onset Date Resolution Status Essential (primary) hypertension chronic History of coronary artery stent placement February 082018 chronic Hyperlipidemia chronic [facility] Work Phone: 1(346) 250-289709-26-2019 Evaluation note* Diagnosis Onset Date Resolution Status Admit Date Essential (primary) hypertension chronic December 14, 2024 10:20am History of coronary artery stent placement March 04, 2019 chronic December 14, 025 10:20am Hyperlipidemia chronic December 14, 2024 10:20am Nicotine dependence chronic December 14, 2024 10:20am [facility] Work Phone: Evaluation note* Diagnosis Onset Date Resolution Status Chest pain acute 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 Essential (primary) hypertension chronic Hyperlipidemia chronic History of coronary artery stent placement February 082018 resolved [facility] Work Phone: Evaluation note* Diagnosis Encounter for screening for malignant neoplasm of colon Polyp of colon Benign neoplasm of colon Essential (primary) hypertension Unspecified essential hypertension Pure hypercholesterolemia, unspecified Benign prostatic hyperplasia without lower urinary tract symptoms Chronic obstructive pulmonary disease, unspecified (CMS/HCC) documented in this encounter [facility] Work Phone: Evaluation noteNo assessment information available [facility] Work Phone: Reason for referral (narrative)No reason for [facility] Work [facility]: Summary Purpose Family History No Family History Records Found Relationship Condition Age at Onset Recorded Date/T izaiah brother Cerebrovascular accident (CVA) Unknown Diabetes mellitus Unknown sister Diabetes mellitus Unknown Hypertension Unknown son Hypertension Unknown father Myocardial infarction 41 Advance Directives No Advanced Directives Records FoundDocuments on File Type Date 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 Advance Directives and Livin g Will 03/06/2019 1:04 PM Advance Directive Response Recorded Date/ Time Advance Directives Yes March 12, 2019 9:06am Living Will Yes July 26, 2 022 8:54pm Power of Psych Social Worker Yes July 26, 2021 8:54pm Advance Directive Response Recorded Date/ Time Name of Medical Power of Psych Social Worker Kenzie Mireles - July 26, 2021 8:54pm Advance Directives Yes March 12, 2019 9:06am Living Will Yes July 26 8:54pm Power of Psych Social Worker Yes July 26, 2021 8:54pm Advance Directive Response Recorded Date/ Time Advance Directives on File Yes Decem 2021 10:28am Name of Medical Power of Psych Social Worker Claudia Mireles-w gurpreet May 22, 2022 10:28am Advance Directives Yes May 10:28am Living Will Yes May 22 10:28am Power of Psych Social Worker Yes May 22, 2022 10:28am Advance Directive Response Recorded Date/ Time Advance Directives Yes May 11:28am Living Will Yes May 22 11:28am Power of Psych Social Worker Yes May 22, 2022 11:28am Advance Directive Response Recorded Date/ Time Advance Directives Yes May 10:28am Living Will Yes May 22 10:28am Power of Psych Social Worker Yes May 22, 2022 10:28am Advance Directive Response Recorded Date/ Time Living Will Yes May 22 11:28am Do you have a Healthcare Power of Psych Social Worker? Yes May 22, 2022 11:28am Advance Directives Yes May 11:28am Discharge Instructions * Instructions* Luis Enrique Hollis MD - 03/06/2019 If he having persistent chest pain or persistent shortness of breath return to ER Otherwise consult with your primary care physician or wheel mill operator Friday for further care regarding a chest [...] for Visit Chest pain Atherosclerotic heart disease [place] coronary artery w/angina pectoris Essential (primary) hypertension Hyperlipidemia History of coronary artery stent placement Chief Complaint CHEST PAIN CHEST PAIN CHEST PAIN CHEST PAIN CHEST PAIN 3wk fu CAD NICOTINE DEPENDENCE Reason for Visit Chest pain Atherosclerotic heart disease [place] coronary artery w/angina pectoris Essential (primary) hypertension Hyperlipidemia History of coronary artery stent placement Chief Complaint 3wk fu CAD NICOTINE DEPENDENCE 3 M FU Peripheral vascular disease, unspecified Reason for Visit Atherosclerotic hear t disease [place] coronary artery w/angina pectoris Essential (primary) hypertension [...] section and content) DATE CREATED AUTHOR 11/27/2017 [facility] DATE CREATED AUTHOR AUTHOR'S ORGANIZ ATION 12/02/2017 [facility] DATE CREATED AUTHOR AUTHOR'S ORGANIZ ATION 08/10/2018 [facility] DATE CREATED AUTHOR AUTHOR'S ORGANIZ ATION 07/24/2019 [facility] DATE CREATED AUTHOR AUTHOR'S ORGANIZ ATION 11/19/2022 [facility] DATE CREATED AUTHOR AUTHOR'S ORGANIZ ATION 11/19/2022 [facility] DATE CREATED AUTHOR AUTHOR'S ORGANIZ ATION 04/02/2025 [facility] Reason for Visit (unrecogniz ed section [...] X3 ASA AT HOME. ED PROVIDER NOTE [facility] EMERGENCY DEPARTMENT NAME: Jaron Mireles AGE: 63 y.o. : 1955 VISIT DATE: 03/06/2019 CSN: [id number] PCP: Melvin Trujillo MD Chief Complaint Patient presents with Chest Pain Is a 63-year-old with known coronary artery disease who states he just had 2 stents placed at [facility] this week coming to the emergency room [...] file Gets together: Not on file Attends episcopalian service: Not on file Active member of [...] consult with his primary care physician or wheel mill operator next week. The patient has been informed [...] Discontinue: Error Luis Enrique Hollis MD 03/06/19 0691 Luis Enrique Hollis MD 03/06/19 9601 Bed: 15 Expected date: 03/06/19 Expected time: [...] MD Primary Care Provider Active Chris Pineda LOAN ADVISER, LOAN ADVISER-C Attending Provider Active Team Status: Active Member Role Status Dates Dr. Melvin Trujillo MD Primary Care Provider Active Dr. Keith Azevedo MD Attending Provider Active Team Status: Inactive Member Role Status Dates Dr. Melvin Trujillo MD Primary Care Provider Active Chris Pineda LOAN ADVISER, LOAN ADVISER-C Attending Provider Active Team Status: Inactive Member [...] Provider, Referring P rovider Active Elsy Briceno LOAN ADVISER, LOAN ADVISER-C Active Chris H Roof LOAN ADVISER, LOAN ADVISER-C Attending Provider Active Team Status: Inactive Member Role Status Dates Dr. Melvin Trujillo MD Primary Care Provider Active Chris Pineda LOAN ADVISER, LOAN ADVISER-C Attending Provider, Referring Pro vider Active Team Status: Inactive Member Role Status Dates Dr. Melvin Trujillo MD Primary Care Provide r, Attending Provider, Referring Provider Active Chris Pineda LOAN ADVISER, LOAN ADVISER-C Other Provider Active Team Status: Inactive Member Role Status Dates Dr. Melvin Trujillo MD Primary Care Provider, Attending Florence quach Active Medical Appointment Scheduler Relationship Specialty Start Date End Date Melvin Trujillo MD [address] [place] [address] PCP - General 11/06/22 Team Status: Inactive [...] 2024 End: December 14, 2024 Chris Pineda LOAN ADVISER, LOAN ADVISER-C Attending Provider Active S tart: December 14, [...] 2024 End: December 14, 2024 Chris Pineda LOAN ADVISER, LOAN ADVISER-C Attending physician Active Start: December 14, 2024 [...] BE BASED ON THE PRIMARY CLINICAL RECORDS. [employer] [facility]. provides no warranty or guarantee of the accuracy or completeness of information in this document.
--- OUTSIDE RECORDS SUMMARY | 2025-04-30 22:48 | XMS RPT_ITS | CCD ---
Author Organization [facility] Care Team Providers Care Fabric Separator Operator Name Role Phone Carrillo Bernal Unavailable Unavailable [...] [phone] Elias Pimentel Emergency Provider [phone] Dr. Berenice Chavez Admit Provider Dr. Berenice [...] Provider Dr. Melvin Trujillo Referring Provider Wynne FILTER ASSEMBLER, FILTER ASSEMBLER-C [place] Attending Provider Dr. Keith Azevedo Attending Provider Roof FILTER ASSEMBLER, FILTER ASSEMBLER-C Chris Bradley Attending Provider Dr. Melvin Trujillo Primary Care Provider Dr. Melvin Trujillo Referring Provider Dr. Melvin Trujillo Primary Care Provider Dr. Keith Azevedo Attending Provider Roof FILTER ASSEMBLER, FILTER ASSEMBLER-C Chris Bradley Attending Provider Dr. Melvin Trujillo Referring Provider Dr. Vinayak Edmonds Attending Unavailable Dr. Melvin Trujillo Primary Care Unavailable Dr. Melvin Trujillo Referring Unavailable Dr. Vinayak Edmonds Admitting Unavailable Dr. Melvin Trujillo Primary Care Provider Edwin FILTER ASSEMBLER, FILTER ASSEMBLER-C Chris Bradley Attending Provider Melvin Trujillo MD Primary Care Provider Dr. Melvin Trujillo MD Primary Care Provider Dr. Melvin Trujillo MD Referring Provider Edwin FILTER ASSEMBLER-CChris Attending Provider Dr. Melvin Trujillo MD Primary Care Physician Edwin FILTER ASSEMBLER-C, Chris Bradley Attending Physician Blaine TABARES, Dr. Hilario Garcia Attending Physician Blaine TABARES, Dr. Hilario Garcia Ref[facility] FILTER ASSEMBLER-CKade Attending Physician Aldiaorrow FILTER ASSEMBLER-CKade Referring Provider Melvin Trujillo Primary Care Unavailable Alidaorrow FILTER ASSEMBLERKade Attending Unavailable [facility] Kade ROMANO Referring Unavailable Melvin [...] nasa l route three times daily Ipratropium [place] Active 2 SPRAY INTRANASAL THREE TIMES A [...] sources) Start: 05-16-2020 take 1 capsule by [facility] once daily Completed/Discontinued Medications Medication Drug Class(es) [...] 9:34am Start: 08-26-2018 End: 02-26-2019 Famotidine-Ca Carb-Mag [place] x Discontinued 1 - 2 EACH PO [...] 20, 2022 4:21pm December 16, 2023 9:58am Ynjhbpom-Xql-Xmuqb -Vit K-Lycop (One-A-Day Men's Multivitamin) 400-20-300 mcg tablet (13 sources) Start: 11-27-2021 End: 12-14-2024 Vntrfhsz-Oam-Ybrvh- Vit K-Lycop (One-A-Day Men's Multivitamin) 400-20-300 mcg tablet Discontinued 1 {tbl} PO DAILY November 27, 2021 12:00am December 14, 2024 11:02am Start: 11-27-2021 take 1 tablet by elizabeth once daily Mtlqtxov-Qvk-Tpnhb-Vit K-Lycop (One-A-Da y Men's Multivitamin) 400-20-300 mcg tablet Active 1 TABLET PO DAILY November 27, 2021 12:00am Start: 11-27-2021 take 1 tablet by elizabeth th once daily Tgtsentd-Tao-Mngmz-Vit K-Lycop (-A Men's Multivitamin) 400-20-300 mcg tablet Active 1 TABLET PO DAILY November 26, 2021 11:00pm Start: 11-27-2021 take 1 tablet by elizabeth th once Ftahecpl-Bcd-Inpbw-Vit K-Lycop (-A Men's Multivitamin) 400-20-300 mcg tablet [...] disease (20 sources) Atherosclerotic heart disease of [place] coronary artery without angina pectoris; Translations: [Coronary [...] Screeningon 02-28-[address] Lung Screening [facility] Imaging Services [address] [place] [address] Lung Screening MR#: [id number] Acct: [id number] Name: JARON MIRELES Rep #: [id number] : 1955 M 69 From: Blaine Loja MD PCP: Dr. Melvin Trujillo MD Status: REG CLI Study: Low Dose CT Lung Screening Date of Exam: 02/28 Exam# [id number] Ordering Dr: Kade Novoa NP FILTER ASSEMBLER -C PROCEDURE: LOW DOSE CT LUNG SCREENING 02/28/2025 REASON FOR EXAM: TOBACCO ABUSUSE TECHNIQUE: Procedure Code: CTLUNGSCREEN Modality: CT Procedure: LOW DOSE CT LUNG SCREENING Coronal and Sagittal reconstruction series were provided. One or more dose reduction techniques were used (e.g., Automated exposure control, adjustment of the mA and/or kV according to patient size, use of iterative reconstruction technique). REFERENCE LINK: [employer] Lung-RADS RADIATION DOSE SUMMARY: CTDlvol: 3.0 mGy [...] SCREENING LDCT. Other Significant Findings: Reading Location: [facility] CC: Kade ROMANO NP-Alondra Irwinorrmandy; Dr. Melvin Trujillo MD Childhood Development Teacher: Signed Normal [facility] PSA,Total - Annual Screenon 02-22-2025 PSA,TOT SCREEN 1.40 ng/mL Normal 0.02-4.00 [facility] Comment on above: Result Comment: This test [...] values. Performed By: #### L 501.9910 #### [facility] [address] [place], [address] Cardiology Visit Reporton Cardiology Visit Report [facility] [address] [place] [address] OFFICE VISIT Date of Service: 12/14/24 MR#: [id number] Acct: [id number] Name: JARON MIRELES Rep #: [id number] : 1955 Provider: DENISE sifuentes Age/Sex: 69/M Location: [facility] Status: Signed HPI HPI History of Present [...] NIBP Intake Visit Reasons: 1 Y FU Director Of Health Care Marketing Required: No Is patient in pain?: No [...] past year?: Yes (Off of a ladder) [facility] Medical History Essential (primary) hypertension Elevated blood pressure reading in office without diagnosis of hypertension Nicotine dependence GERD (gastroesophageal reflux disease) Hyperlipidemia COPD (chronic obstructive pulmonary disease) Atherosclerotic heart disease [place] coronary artery w/angina pectoris Surgical History History [...] never substanc (more content not included)... Normal [facility] CBC W/Diff, Automatedon 07-10 Absolute Lymph 2.06 X10 3/uL Normal 0.83-4.51 [facility] Comment on above: Order Comment: Order Date: 07/20/24 Order Info: 0184-1 - CBCD Performed By: #### L 500.4050, L502.0250, L100.0100 #### [facility] [address] [place], [address] Absolute Neut 6.4 X10 3/uL Normal 2.0-7.7 [facility] Comment on above: Order Comment: Order Date: 07/20/24 Order Info: 0184-1 - CBCD Performed By: #### L 500.4050, L502.0250, L100.0100 #### [facility] [address] [place], [address] Basophils/100 WBC (Bld) 0.9 % Normal 0-1 [facility] Comment on above: Order Comment: Order Date: 07/20/24 Order Info: 0184-1 - CBCD Performed By: #### L 500.4050, L502.0250, L100.0100 #### [facility] [address] [place], [address] Eosinophils/100 WBC (Bld) 2.8 % Normal 0-5 [facility] Comment on above: Order Comment: Order Date: 07/20/24 Order Info: 0184-1 - CBCD Performed By: #### L 500.4050, L502.0250, L100.0100 #### [facility] [address] [place], [address] Erythrocyte distribution width (RBC) [Ratio] 12.7 % Normal 11.6-14.6 [facility] Comment on above: Order Comment: Order Date: 07/20/24 Order Info: 0184-1 - CBCD Performed By: #### L 500.4050, L502.0250, L100.0100 #### [facility] [address] [place], [address] Hematocrit (Bld) [Volume fraction] 46.5 % Normal 40-54 [facility] Comment on above: Order Comment: Order Date: 07/20/24 Order Info: 0184-1 - CBCD Performed By: #### L 500.4050, L502.0250, L100.0100 #### [facility] [address] [place], [address] Hemoglobin (Bld) [Mass/Vol] 15.5 g/dL Normal 13.0-16.5 [facility] Comment on above: Order Comment: Order Date: 07/20/24 Order Info: 0184- - CBCD Performed By: #### L 500.4050, L502.0250, L100.0100 #### [facility] [address] [place], [address] IG% 0.700 Normal 0.0-0.9 [facility] Comment on above: Order Comment: Order Date: 07/20/24 Order Info: 018- - CBCD Result Comment: IG% - Immature Granulocytes (promyelocytes, myelocytes and metamyelocytes) > 1% indicates that a LEFT SHIFT is Present. Performed By: #### L 500.4050, L502.0250, L100.0100 #### [facility] [address] [place], [address] Lymphocytes/100 WBC (Bld) 21.2 % Normal 19-41 [facility] Comment on above: Order Comment: Order Date: 07/20/24 Order Info: 018- - CBCD Performed By: #### L 500.4050, L502.0250, L100.0100 #### [facility] [address] [place], [address] MCH (RBC) [Entitic mass] 32.2 pg High 27.0-32.0 [facility] Comment on above: Order Comment: Order Date: 07/20/24 Order Info: 0184- - CBCD Performed By: #### L 500.4050, L502.0250, L100.0100 #### [facility] [address] [place], [address] MCHC (RBC) [Mass/Vol] 33.3 g/dL Normal 32-36 [facility] Comment on above: Order Comment: Order Date: 07/20/24 Order Info: 0184- - CBCD Performed By: #### L 500.4050, L502.0250, L100.0100 #### [facility] [address] [place], [address] MCV (RBC) [Entitic vol] 96.5 fL High 80-94 [facility] Comment on above: Order Comment: Order Date: 07/20/24 Order Info: 0184-1 - CBCD Performed By: #### L 500.4050, L502.0250, L100.0100 #### [facility] [address] [place], [address] Monocytes/100 WBC (Bld) 8.7 % Normal 0-10 [facility] Comment on above: Order Comment: Order Date: 07/20/24 Order Info: 0184-1 - CBCD Performed By: #### L 500.4050, L502.0250, L100.0100 #### [facility] [address] [place], [address] Neutrophils/100 WBC (Bld) 65.7 % Normal 47-70 [facility] Comment on above: Order Comment: Order Date: 07/20/24 Order Info: 0184-1 - CBCD Performed By: #### L 500.4050, L502.0250, L100.0100 #### [facility] [address] [place], [address] Nucleated RBC (Bld) [#/Vol] 0 10*3/uL Normal 0-5 [facility] Comment on above: Order Comment: Order Date: 07/20/24 Order Info: 0184-1 - CBCD Performed By: #### L 500.4050, L502.0250, L100.0100 #### [facility] [address] [place], [address] Platelet mean volume (Bld) [Entitic vol] 10.8 fL Normal 6.2-12.0 [facility] Comment on above: Order Comment: Order Date: 07/20/24 Order Info: 0184-1 - CBCD Performed By: #### L 500.4050, L502.0250, L100.0100 #### [facility] [address] [place], [address] Platelets (Bld) [#/Vol] 239 10*3/uL Normal 150-450 [facility] Comment on above: Order Comment: Order Date: 07/20/24 Order Info: 0184-1 - CBCD Performed By: #### L 500.4050, L502.0250, L100.0100 #### [facility] [address] [place], [address] RBC (Bld) [#/Vol] 4.82 10*6/uL Normal 4.6-6.2 [facility] Comment on above: Order Comment: Order Date: 07/20/24 Order Info: 0184- - CBCD Performed By: #### L 500.4050, L502.0250, L100.0100 #### [facility] [address] [place], [address] RDW SD 44.9 fl High 35.1-43.9 [facility] Comment on above: Order Comment: Order Date: 07/20/24 Order Info: 0184- - CBCD Performed By: #### L 500.4050, L502.0250, L100.0100 #### [facility] [address] [place], [address] WBC (Bld) [#/Vol] 9.7 10*3/uL Normal 4.4-11.0 [facility] Comment on above: Order Comment: Order Date: 07/20/24 Order Info: 0184-1 - CBCD Performed By: #### L 500.4050, L502.0250, L100.0100 #### [facility] [address] [place], [address] Comprehensive Metabolic Prof ilon 07-20-2024 Albumin [Mass/Vol] 4.6 g/dL Normal 3.2-5.0 [facility] Comment on above: Order Comment: Order Date: 07/20/24 Order Info: 0786-1 - CMP Performed By: #### L 500.4050, L502.0250, L100.0100 #### [facility] [address] [place], [address] Albumin/Globulin [Mass ratio] 1.6 {ratio} Normal 0.9-2.4 [facility] Comment on above: Order Comment: Order Date: 07/20/24 Order Info: 0786-1 - CMP Performed By: #### L 500.4050, L502.0250, L100.0100 #### [facility] [address] [place], [address] ALK P 75 U/L Normal 45-117 [facility] Comment on above: Order Comment: Order Date: 07/20/24 Order Info: 0786-1 - CMP Performed By: #### L 500.4050, L502.0250, L100.0100 #### [facility] [address] [place], [address] ALT [Catalytic activity/Vol] 26 U/L Normal 16-61 [facility] Comment on above: Order Comment: Order Date: 07/20/24 Order Info: 0786-1 - CMP Performed By: #### L 500.4050, L502.0250, L100.0100 #### [facility] [address] [place], [address] AST [Catalytic activity/Vol] 19 U/L Normal 15-37 [facility] Comment on above: Order Comment: Order Date: 07/20/24 Order Info: 0786-1 - CMP Performed By: #### L 500.4050, L502.0250, L100.0100 #### [facility] [address] [place], [address] Bilirubin [Mass/Vol] 0.50 mg/dL Normal 0.20-1.00 [facility] Comment on above: Order Comment: Order Date: 07/20/24 Order Info: 0786-1 - CMP Result Comment: For patients on eltrombopag therapy, use of Dimension [place] TBIL is not recommended. Performed By: #### L 500.4050, L502.0250, L100.0100 #### [facility] [address] [place], [address] BUN/CRE 17.6 RATIO Normal 10-20 [facility] Comment on above: Order Comment: Order Date: 07/20/24 Order Info: 0786-1 - CMP Performed By: #### L 500.4050, L502.0250, L100.0100 #### [facility] [address] [place], [address] CA,Total 9.4 mg/dL Normal 8.5-10.1 [facility] Comment on above: Order Comment: Order Date: 07/20/24 Order Info: 0786-1 - CMP Performed By: #### L 500.4050, L502.0250, L100.0100 #### [facility] [address] [place], [address] Chloride [Moles/Vol] 103 mmol/L Normal 98-107 [facility] Comment on above: Order Comment: Order Date: 07/20/24 Order Info: 0786-1 - CMP Performed By: #### L 500.4050, L502.0250, L100.0100 #### [facility] [address] [place], [address] CO2 [Moles/Vol] 28.0 mmol/L Normal 21.0-32.0 [facility] Comment on above: Order Comment: Order Date: 07/20/24 Order Info: 0786-1 - CMP Performed By: #### L 500.4050, L502.0250, L100.0100 #### [facility] [address] [place], [address] Creatinine [Mass/Vol] 1.02 mg/dL Normal 0.70-1.30 [facility] Comment on above: Order Comment: Order Date: 07/20/24 Order Info: 0786-1 - CMP Result Comment: The validity of the calculated GFR GFRAA in patients over 70 years has not been determined. Clinical correlation is essential. Performed By: #### L 500.4050, L502.0250, L100.0100 #### [facility] [address] [place], [address] EST GFR - AA 93 mL/min Normal >60 [facility] Comment on above: Order Comment: Order Date: 07/20/24 Order Info: 0786-1 - CMP Result Comment: Afri can Mong[place]ian GFR Calc Performed By: #### L 500.4050, L502.0250, L100.0100 #### [facility] [address] [place], [address] GAP 8 Normal 5-15 [facility] Comment on above: Order Comment: Order Date: 07/20/24 Order Info: 0786-1 - CMP Performed By: #### L 500.4050, L502.0250, L100.0100 #### [facility] [address] [place], [address] GFR/1.73 sq M.predicted among non-blacks MDRD (S/P/Bld) [Vol rate/Area] 77 mL/min/{1.73_m2} Normal >60 [facility] Comment on above: Order Comment: Order Date: 07/20/24 Order Info: 0786-1 - CMP Result Comment: Non- GFR Calc Performed By: #### L 500.4050, L502.0250, L100.0100 #### [facility] [address] [place], [address] Globulin (S) [Mass/Vol] 2.9 g/dL Normal 2.2-4.2 [facility] Comment on above: Order Comment: Order Date: 07/20/24 Order Info: 0786-1 - CMP Performed By: #### L 500.4050, L502.0250, L100.0100 #### [facility] [address] [place], [address] Glucose [Mass/Vol] 90 mg/dL Normal 74-106 [facility] Comment on above: Order Comment: Order Date: 07/20/24 Order Info: 0786-1 - CMP Performed By: #### L 500.4050, L502.0250, L100.0100 #### [facility] [address] [place], [address] Potassium [Moles/Vol] 4.3 mmol/L Normal 3.5-5.1 [facility] Comment on above: Order Comment: Order Date: 07/20/24 Order Info: 0786-1 - CMP Performed By: #### L 500.4050, L502.0250, L100.0100 #### [facility] [address] [place], [address] Sodium [Moles/Vol] 138 mmol/L Normal 136-145 [facility] Comment on above: Order Comment: Order Date: 07/20/24 Order Info: 0786-1 - CMP Performed By: #### L 500.4050, L502.0250, L100.0100 #### [facility] [address] [place], [address] T PROT 7.5 g/dL Normal 6.4-8.2 [facility] Comment on above: Order Comment: Order Date: 07/20/24 Order Info: 0786-1 - CMP Performed By: #### L 500.4050, L502.0250, L100.0100 #### [facility] [address] [place], [address] Urea nitrogen [Mass/Vol] 18 mg/dL Normal 7-18 [facility] Comment on above: Order Comment: Order Date: 07/20/24 Order Info: 0786-1 - CMP Performed By: #### L 500.4050, L502.0250, L100.0100 #### [facility] [address] [place], [address] Microalb:Creat Ratio,Random URon 07-20-2024 Creatinine [Mass/Vol] 64.30 mg/dL Normal NO RAN GE EST. [facility] Comment on above: Order Comment: Order Date: 07/20/24 Order Info: 0779-1 - MIACRE Performed By: #### L 500.4050, L502.0250, L100.0100 #### [facility] [address] [place], [address] MALB:CRE 8.0 mg/g CRE Normal <30 mg/g CRE [facility] Comment on above: Order Comment: Order Date: 07/20/24 Order Info: 0779-1 - MIACRE Performed By: #### L 500.4050, L502.0250, L100.0100 #### [facility] [address] [place], [address] MICROALBUMIN,UR 5.2 mg/L Normal NO RANGE EST. [facility] Comment on above: Order Comment: Order Date: 07/20/24 Order Info: 0779-1 - MIACRE Performed By: #### L 500.4050, L502.0250, L100.0100 #### [facility] [address] [place], [address] Absolute lymphocyte countOrd ered By: Melvin Trujillo on 09-23-2023 Lymphocytes Auto (Unsp spec) [#/Vol] 1.91 10*3/uL 0.83-4.51 [facility] Automated lymphocyte count a s percentage of total leukocytesOrdered By: Melvin Trujillo on 09-23-2023 Lymphocytes/100 WBC Auto (Unsp spec) 20.1 % 19-41 [facility] Basophil percentageOrdered B y: Melvin Trujillo on 09-23-2023 Basophils/100 WBC (Bld) 0.8 % 0-1 [facility] Bilirubin [Mass/Vol] 0.80 mg/dL 0.20-1.00 [facility] Comment on above: For patients on eltr ombopag therapy, use of Dimension [place] TBIL is not recommended. Chloride [Moles/Vol] 107 mmol/L 98-107 [facility] Cholesterol [Mass/Vol] 138 mg/dL <200 [facility] Comment on above: <200 mg/dL Desirable 200-240 mg/dL Borderline >240 mg/dL High Risk Eosinophils/100 WBC (Bld) 2.2 % 0-5 [facility] Glucose [Mass/Vol] 114 mg/dL 74-106 [facility] Comment on above: Fasting Glucose resu lt from 100 to 125 mg/dL suggests IMPAIRED HOMEOSTASIS per A.D.A. criteria. Hemoglobin (Bld) [Mass/Vol] 15.1 g/dL 13.0-16.5 [facility] Monocytes/100 WBC (Bld) 7.3 % 0-10 [facility] Neutrophils (Bld) [#/Vol] 6.5 10*3/uL 2.0-7.7 [facility] Neutrophils/100 WBC (Bld) 68.9 % 47-70 [facility] Potassium [Moles/Vol] 5.2 mmol/L 3.5-5.1 [facility] Protein [Mass/Vol] 7.2 g/dL 6.4-8.2 [facility] Sodium [Moles/Vol] 138 mmol/L 136-145 [facility] Triglyceride [Mass/Vol] 84 mg/dL <199 [facility] Comment on above: The drugs N-Acetylcy steine and Metamizole may falsely depress this assay.Serum Triglycerides Reference Interval Normal <150 mg/dL Borderline high 150 - 199 mg/dL High 200 - 499 mg/dL Very High > or = 500 mg/dL WBC (Bld) [#/Vol] 9.5 10*3/uL 4.4-11.0 [facility] Determination of erythrocyte mean corpuscular volume (MCV)Ordered By: Melvin Trujillo on 09-23-2023 MCV (RBC) [Entitic vol] 96.5 fL 80-94 [facility] Erythrocyte distribution wid th ratioOrdered By: Melvin Trujillo on 09-23-2023 Erythrocyte distribution width (RBC) [Ratio] 14.0 % 11.6-14.6 [facility] Erythrocyte distribution wid th standard deviationOrdered By: Melvin Trujillo on 09-23-2023 Erythrocyte distribution width (RBC) [Entitic vol] 49.4 fL 35.1-43.9 [facility] Hematocrit Auto (Bld) [Volum e fraction]Ordered By: Melvin Trujillo on 09-23-2023 Hematocrit (Bld) [Volume fraction] 44.3 % 40-54 [facility] Immature granulocytes/100 WB C Auto (Bld)Ordered By: Melvin Trujillo on 09-23-2023 Immature granulocytes/100 WBC (Bld) 0.700 % 0.0-0.9 [facility] Comment on above: IG% - Immature Granu locytes (promyelocytes, myelocytes and metamyelocytes) > 1% indicates that a LEFT SHIFT is Present. Laboratory - Chemistry and C hemistry - challengeOrdered By: Melvin Trujillo on 09-23-2023 Albumin/Globulin [Mass ratio] 1.2 {ratio} 0.9-2.4 [facility] ALP [Catalytic activity/Vol] 65 U/L 45-117 [facility] ALT [Catalytic activity/Vol] 29 U/L 16-61 [facility] Cholesterol in HDL [Mass/Vol] 59 mg/dL >40 [facility] Comment on above: The drugs N-Acetylcy steine and Metamizole may falsely depress this assay. Reference Range HDL <40 mg/dL Low HDL Cholesterol HDL >or= 60 mg/dL High HDL Cholesterol Cholesterol in LDL [Mass/Vol] 62 mg/dL 0-130 [facility] CO2 [Moles/Vol] 30.0 mmol/L 21.0-32.0 [facility] Globulin (S) [Mass/Vol] 3.2 g/dL 2.2-4.2 [facility] Urea nitrogen/Creatinine [Mass ratio] 15.4 mg/mg 10-20 [facility] Laboratory - Hematology and Cell countsOrdered By: Melvin Trujillo on 09-23-2023 MCH (RBC) [Entitic mass] 32.9 pg 27.0-32.0 [facility] MCHC (RBC) [Mass/Vol] 34.1 g/dL 32-36 [facility] Nucleated RBC/100 WBC (Bld) [Ratio] 0 % 0-5 [facility] Platelet mean volume (Bld) [Entitic vol] 10.5 fL 6.2-12.0 [facility] Platelets (Bld) [#/Vol] 268 10*3/uL 150-450 [facility] No Panel InformationOrdered By: Melvin Trujillo on 09-23-2023 Estimated GFR (MDRD) Amer 79 mL/min >60 [facility] Comment on above: GFR Calc Estimated GFR (MDRD) Non-Af Amer 66 mL/min >60 [facility] Comment on above: Non- GFR Calc Urine Microalbumin/Creatinin e Ratio 11.5 mg/g CRE <30 [facility] VLDL Cholesterol 17 mg/dL 5-40 [facility] RBC Auto (Bld) [#/Vol]Ordere d By: Melvin Trujillo on 09-23-2023 RBC (Bld) [#/Vol] 4.59 10*6/uL 4.6-6.2 [facility] Serum or plasma calcium todd urement (mass/volume)Ordered By: Melvin Trujillo on 09-23-2023 Calcium [Mass/Vol] 9.2 mg/dL 8.5-10.1 [facility] Serum or plasma creatinine m easurement (mass/volume)Ordered By: Melvin Trujillo on 09-23-2023 Creatinine [Mass/Vol] 1.17 mg/dL 0.70-1.30 [facility] Comment on above: The validity of the calculated GFR & GFRAA in patients over 70 years has not been determined. Clinical correlation is essential. Serum or plasma urea nitroge n measurement (mass/volume)Ordered By: Melvin Trujillo on 09-23-2023 Urea nitrogen [Mass/Vol] 18 mg/dL 7-18 [facility] Thin prep Papanicolaou smear with manual screeningOrdered By: Melvin Trujillo on 09-23-2023 Thin prep Papanicolaou smear with manual screening 4.0 g/dL 3.2-5.0 [facility] Thin prep Papanicolaou smear with manual screening 20 U/L 15-37 [facility] Thin prep Papanicolaou smear with manual screening 1 5-15 [facility] Thin prep Papanicolaou smear with manual screening 8.7 mg/L NO RANGE EST. [facility] Urine creatinine measurement (mass/volume)Ordered By: Melvin Trujillo on 09-23-2023 Creatinine (U) [Mass/Vol] 75.40 mg/dL NO RANGE EST. [facility] Absolute lymphocyte countOrd ered By: Melvin Trujillo on 01-21-2023 Lymphocytes Auto (Unsp spec) [#/Vol] 1.69 10*3/uL 0.83-4.51 [facility] Basophil percentageOrdered B y: Melvin Trujillo on 01-21-2023 Basophil percentage 2.9 mg/dL 2.5-4.9 [facility] Basophils/100 WBC (Bld) 0.8 % 0-1 [facility] Bilirubin [Mass/Vol] 0.40 mg/dL 0.20-1.00 [facility] Comment on above: For patients on eltr ombopag therapy, use of Dimension [place] TBIL is not recommended. Chloride [Moles/Vol] 104 mmol/L 98-107 [facility] Eosinophils/100 WBC (Bld) 2.6 % 0-5 [facility] Glucose [Mass/Vol] 91 mg/dL 74-106 [facility] Neutrophils (Bld) [#/Vol] 5.1 10*3/uL 2.0-7.7 [facility] Neutrophils/100 WBC (Bld) 65.8 % 47-70 [facility] Potassium [Moles/Vol] 4.9 mmol/L 3.5-5.1 [facility] Protein [Mass/Vol] 7.2 g/dL 6.4-8.2 [facility] Sodium [Moles/Vol] 139 mmol/L 136-145 [facility] WBC (Bld) [#/Vol] 7.7 10*3/uL 4.4-11.0 [facility] Blood erythrocytes count (nu mber/volume)Ordered By: Melvin Trujillo on 01-21-2023 RBC (Bld) [#/Vol] 4.43 10*6/uL 4.6-6.2 [facility] Blood hemoglobin measurement (mass/volume)Ordered By: Melvin Trujillo on 01-21-2023 Hemoglobin (Bld) [Mass/Vol] 14.7 g/dL 13.0-16.5 [facility] Blood lymphocytes/100 leukoc ytesOrdered By: Melvin Trujillo on 01-21-2023 Lymphocytes/100 WBC (Bld) 21.9 % 19-41 [facility] Blood monocytes/100 leukocyt esOrdered By: Melvin Trujillo on 01-21-2023 Monocytes/100 WBC (Bld) 8.5 % 0-10 [facility] Blood platelet mean volumeOr dered By: Melvin Trujillo on 01-21-2023 Platelet mean volume (Bld) [Entitic vol] 10.5 fL 6.2-12.0 [facility] Determination of erythrocyte mean corpuscular volume (MCV)Ordered By: Melvin Trujillo on 01-21-2023 MCV (RBC) [Entitic vol] 98.2 fL 80-94 [facility] Hematocrit Auto (Bld) [Volum e fraction]Ordered By: Melvin Trujillo on 01-21-2023 Hematocrit (Bld) [Volume fraction] 43.5 % 40-54 [facility] Laboratory - Chemistry and C hemistry - challengeOrdered By: Melvin Trujillo on 01-21-2023 ALP [Catalytic activity/Vol] 69 U/L 45-117 [facility] ALT [Catalytic activity/Vol] 26 U/L 16-61 [facility] CO2 [Moles/Vol] 30.0 mmol/L 21.0-32.0 [facility] Globulin (S) [Mass/Vol] 3.3 g/dL 2.2-4.2 [facility] Magnesium [Mass/Vol] 2.3 mg/dL 1.6-2.6 [facility] Urea nitrogen/Creatinine [Mass ratio] 15.8 mg/mg 10-20 [facility] Laboratory - Hematology and Cell countsOrdered By: Melvin Trujillo on 01-21-2023 Erythrocyte distribution width (RBC) [Entitic vol] 47.8 fL 35.1-43.9 [facility] Erythrocyte distribution width (RBC) [Ratio] 13.2 % 11.6-14.6 [facility] Immature granulocytes/100 WBC (Bld) 0.400 % 0.0-0.9 [facility] Comment on above: IG% - Immature Granu locytes (promyelocytes, myelocytes and metamyelocytes) > 1% indicates that a LEFT SHIFT is Present. MCH (RBC) [Entitic mass] 33.2 pg 27.0-32.0 [facility] Nucleated RBC/100 WBC (Bld) [Ratio] 0 % 0-5 [facility] MCHC Auto (RBC) [Mass/Vol]Or dered By: Melvin Trujillo on 01-21-2023 MCHC (RBC) [Mass/Vol] 33.8 g/dL 32-36 [facility] No Panel InformationOrdered By: Melvin Trujillo on 01-21-2023 Estimated GFR (MDRD) Amer 77 mL/min >60 [facility] Comment on above: GFR Calc Estimated GFR (MDRD) Non-Af Amer 64 mL/min >60 [facility] Comment on above: Non- GFR Calc Thyroid Stimulating Hormone (TSH) 2.18 uIU/mL 0.358-3.74 [facility] Platelets bldOrdered By: Lizabeth Trujillo on 01-21-2023 Platelets (Bld) [#/Vol] 245 10*3/uL 150-450 [facility] Serum or plasma albumin todd urement (mass/volume)Ordered By: Melvin Trujillo on 01-21-2023 Albumin [Mass/Vol] 3.9 g/dL 3.2-5.0 [facility] Serum or plasma albumin/glob ulin mass ratioOrdered By: Melvin Trujillo on 01-21-2023 Albumin/Globulin [Mass ratio] 1.2 {ratio} 0.9-2.4 [facility] Serum or plasma calcium todd urement (mass/volume)Ordered By: Melvin Trujillo on 01-21-2023 Calcium [Mass/Vol] 8.8 mg/dL 8.5-10.1 [facility] Serum or plasma creatinine m easurement (mass/volume)Ordered By: Melvin Trujillo on 01-21-2023 Creatinine [Mass/Vol] 1.20 mg/dL 0.70-1.30 [facility] Comment on above: The validity of the calculated GFR & GFRAA in patients over 70 years has not been determined. Clinical correlation is essential. Serum or plasma urea nitroge n measurement (mass/volume)Ordered By: Melvin Trujillo on 01-21-2023 Urea nitrogen [Mass/Vol] 19 mg/dL 7-18 [facility] Thin prep Papanicolaou smear with manual screeningOrdered By: Melvin Trujillo on 01-21-2023 Thin prep Papanicolaou smear with manual screening 18 U/L 15-37 [facility] Thin prep Papanicolaou smear with manual screening 5 - [facility] SURGICAL PATHOLOGY RESULTSon 11-13-2022 Pathology Report Name JARON MIRELES Pathologist: BRIAN MCGRATH M.D. Date of Procedure: 11/06/2022 Date Received: 11/06/2022 Date Reported 11/13/2022 Submitting Physician: VINAYAK EDMONDS DO Location: [facility] Copy To/Referring/Attendin g: MELVIN TRUJILLO MD Other External # FINAL DIAGNOSIS RECTOSIGMOID COLON, POLYP, POLYPECTOMY: -- HYPERPLASTIC POLYP. Electronically Signed Out By BRIAN MCGRATH M.D./MAKENZIE By the signature on this report, the individual or group listed as making the Final Interpretation/Diagno sis certifies that they have reviewed this case. Diagnostic interpretation performed at [place] [address] Clinical History: Clinical Diagnosis History COLONOSCOPY Specimens Submitted As: A: RECTO-SIGMOID JUNCTION POLYP Gross Description: Received in formalin, labeled with the patient's name and hospital number and rectosigmoid polyp, is a fragment of engel, soft tissue measuring 0.4 x 0.3 x 0.2 cm. The specimen is submitted in toto in one cassette. MKM mkm/11/08/2022 [facility] Department of Pathology [address] [place] [address] Colonoscopyon 11-06-2022 Colonoscopy PATIENTNAME Patient Name: Jaron Mireles EXAMDATE Procedure Date: 11/06/2022 2:21 PM PATIENTID PATIENTACCOUNTNUM PATIENTDOB Date of : 1955 ADMITTYPE Admit Type: Outpatient PATIENTROOM Site: [facility] Endo Proc RM 1 ETHNICITY Ethnicity: Not or RACE Race: White PROVDR Attending MD: Vinayak Edmonds DO, [id number] ENDOPROCEDURENAME Procedure: Colonoscopy INDICATION Indications: Surveillance: Personal history of colonic polyps (unknown histology) on last colonoscopy more than 5 years ago PRIMARYPROVIDER Providers: Vinayak Edmonds DO (Doctor), Damaris Ferrari RN (Nurse), Joel Sanchez, Geophysical Laboratory Supervisor EDREFPROVIDER Referring: Melvin Trujillo MD CURRENT_MEDS Medicines: [...] results. CPT_CODES Procedure Code(s): --- Professional --- 55727, Colonoscopy, flexible; with biopsy, single or multiple 46230, Moderate sedation; each additional 15 minutes intraservice time G0500, Moderate sedation services provided by the same physician or other qualified health clinical manager home care performing a gastrointestinal endoscopic service that sedation supports, requiring the presence of an independent trained observer to assist in the monitoring of the patient's level of consciousness and physiological status; initial 15 minutes of intra-service time; patient age 5 years or older (additional (more content not included)... Normal [facility] Vinayak Edmonds DO - 12/02/2022 Patient Name: Jaron Mireles Procedure Date: 11/06/2022 2:21 PM Date of : 1955 Admit Type: Outpatient Site: [facility] 1 Ethnicity: Not or Race: White Attending MD: Vinayak Edmonds DO, [id number] Procedure: Colonoscopy Indications: Surveillance: Personal history of colonic polyps (unknown histology) on last colonoscopy more than 5 years ago Providers: Vinayak Edmonds DO (Doctor), Damaris Ferrari RN (Nurse), Joel Sanchez, Geophysical Laboratory Supervisor Referring: Melvin Trujillo MD Medicines: Midazolam 7.5 [...] pathology results. Procedure Code(s): --- Professional --- 36415, Colonoscopy, flexible; with biopsy, single or multiple 50848, Moderate sedation; each additional 15 minutes intraservice time G0500, Moderate sedation services provided by the same physician or other qualified health clinical manager home care performing a gastrointestinal endoscopic service that sedation supports, requiring the presence of an independent trained observer to assist in the monitoring of the patient's level of consciousness and physiological status; initial 15 minutes of intra-service time; patient age 5 years or older (additional time may be reported with [address]1974, as appropriate) Diagnosis Code(s): --- Professional --- Z12.11, Encounter for screening for malignant neoplasm of colon Z86.010, Personal history of colonic polyps (more content not included)... [facility] Work Phone: Radiology Study observation (narrative) [facility] Work Phone: ColonoscopyOrdered By: Vinayak Edmonds on 11-06-2022 [facility] Work Phone: [facility] Surgical Pathology Depar tmenton 11-06-2022 [facility] Surgical Pathology Department Name JARON MIRELESCandelaria Pathologist: BRIAN MCGRATH M.D. Date of Procedure: 11/06/2022 Date Received: 11/06/2022 Date Reported 11/13/2022 Submitting Physician: VINAYAK EDMONDS DO Location: [facility] Copy To/Referring/Attendin g: MELVIN TRUJILLO MD Other External # FINAL DIAGNOSIS RECTOSIGMOID COLON, POLYP, POLYPECTOMY: -- HYPERPLASTIC POLYP. Electronically Signed Out By BRIAN MCGRATH M.D./MAKENZIE By the signature on this report, the individual or group listed as making the Final Interpretation/Diagno sis certifies that they have reviewed this case. Diagnostic interpretation performed at [address] [place] [address] Clinical History: Clinical Diagnosis History COLONOSCOPY Specimens Submitted As: A: RECTO-SIGMOID JUNCTION POLYP Gross Description: Received in formalin, labeled with the patient's name and hospital number and rectosigmoid polyp, is a fragment of engel, soft tissue measuring 0.4 x 0.3 x 0.2 cm. The specimen is submitted in toto in one cassette. MKM mkm/11/08/2022 [facility] Department of Pathology [id number] [place] [address] Normal [facility] Comment on above: Performed By: #### [facility] #### [facility] Surgical Pathology Department [address] [place] [address] Absolute lymphocyte countOrd ered By: Dr. Trujillo on 10-11-2022 Lymphocytes Auto (Unsp spec) [#/Vol] 2.30 10*3/uL 0.83-4.51 [facility] Basophil percentageOrdered B y: Chris Pineda on 10-11-2022 Cholesterol [Mass/Vol] 128 mg/dL <200 [facility] Comment on above: <200 mg/dL Desirable 200-240 mg/dL Borderline >240 mg/dL High Risk Triglyceride [Mass/Vol] 73 mg/dL <199 [facility] Comment on above: The drugs N-Acetylcy steine and Metamizole may falsely depress this assay.Serum Triglycerides Reference Interval Normal <150 mg/dL Borderline high 150 - 199 mg/dL High 200 - 499 mg/dL Very High > or = 500 mg/dL Basophil percentageOrdered B y: Dr. Trujillo on 10-11-2022 Basophils/100 WBC (Bld) 1.2 % 0-1 [facility] Bilirubin [Mass/Vol] 0.60 mg/dL 0.20-1.00 [facility] Comment on above: For patients on eltr ombopag therapy, use of Dimension [place] TBIL is not recommended. Chloride [Moles/Vol] 105 mmol/L 98-107 [facility] Eosinophils/100 WBC (Bld) 2.6 % 0-5 [facility] Glucose [Mass/Vol] 98 mg/dL 74-106 [facility] Neutrophils (Bld) [#/Vol] 4.7 10*3/uL 2.0-7.7 [facility] Neutrophils/100 WBC (Bld) 58.8 % 47-70 [facility] Potassium [Moles/Vol] 4.5 mmol/L 3.5-5.1 [facility] Protein [Mass/Vol] 7.1 g/dL 6.4-8.2 [facility] Sodium [Moles/Vol] 140 mmol/L 136-145 [facility] WBC (Bld) [#/Vol] 8.0 10*3/uL 4.4-11.0 [facility] Blood erythrocytes count (nu mber/volume)Ordered By: Dr. Trujillo on 10-11-2022 RBC (Bld) [#/Vol] 4.72 10*6/uL 4.6-6.2 [facility] Blood hemoglobin measurement (mass/volume)Ordered By: Dr. Trujillo on 10-11-2022 Hemoglobin (Bld) [Mass/Vol] 15.2 g/dL 13.0-16.5 [facility] Blood lymphocytes/100 leukoc ytesOrdered By: Dr. Trujillo on 10-11-2022 Lymphocytes/100 WBC (Bld) 28.6 % 19-41 [facility] Blood monocytes/100 leukocyt esOrdered By: Dr. Trujillo on 10-11-2022 Monocytes/100 WBC (Bld) 7.8 % 0-10 [facility] Blood platelet mean volumeOr dered By: Dr. Trujillo on 10-11-2022 Platelet mean volume (Bld) [Entitic vol] 10.1 fL 6.2-12.0 [facility] Determination of erythrocyte mean corpuscular volume (MCV)Ordered By: Dr. Trujillo on 10-11-2022 MCV (RBC) [Entitic vol] 96.2 fL 80-94 [facility] Direct bilirubinOrdered By: Dr. Trujillo on 10-11-2022 Bilirubin.direct [Mass/Vol] 0.19 mg/dL 0.00-0.30 [facility] Hematocrit Auto (Bld) [Volum e fraction]Ordered By: Dr. Trujillo on 10-11-2022 Hematocrit (Bld) [Volume fraction] 45.4 % 40-54 [facility] Laboratory - Chemistry and C hemistry - challengeOrdered By: Dr. Trujillo on 10-11-2022 ALP [Catalytic activity/Vol] 74 U/L 45-117 [facility] ALT [Catalytic activity/Vol] 21 U/L 16-61 [facility] CO2 [Moles/Vol] 29.0 mmol/L 21.0-32.0 [facility] Free T4 [Mass/Vol] 0.88 ng/dL 0.76-1.46 [facility] Globulin (S) [Mass/Vol] 3.1 g/dL 2.2-4.2 [facility] Urea nitrogen/Creatinine [Mass ratio] 18.8 mg/mg 10-20 [facility] Laboratory - Hematology and Cell countsOrdered By: Dr. Trujillo on 10-11-2022 Erythrocyte distribution width (RBC) [Entitic vol] 45.3 fL 35.1-43.9 [facility] Erythrocyte distribution width (RBC) [Ratio] 12.7 % 11.6-14.6 [facility] Immature granulocytes/100 WBC (Bld) 1.000 % 0.0-0.9 [facility] Comment on above: IG% - Immature Granu locytes (promyelocytes, myelocytes and metamyelocytes) > 1% indicates that a LEFT SHIFT is Present. MCH (RBC) [Entitic mass] 32.2 pg 27.0-32.0 [facility] Nucleated RBC/100 WBC (Bld) [Ratio] 0 % 0-5 [facility] MCHC Auto (RBC) [Mass/Vol]Or dered By: Dr. Trujillo on 10-11-2022 MCHC (RBC) [Mass/Vol] 33.5 g/dL 32-36 [facility] No Panel InformationOrdered By: Dr. Trujillo on 10-11-2022 Anti-Nuclear Antibody Screen Negative Negative [facility] Comment on above: Performed at: [address] [id number] Director: Baldo Jauregui PhD, Phone: [phone] Estimated GFR (MDRD) Amer 94 mL/min >60 [facility] Comment on above: GFR Calc Estimated GFR (MDRD) Non-Af Amer 78 mL/min >60 [facility] Comment on above: Non- GFR Calc Thyroid Stimulating Hormone (TSH) 2.28 uIU/mL 0.358-3.74 [facility] Platelets bldOrdered By: Dr. Trujillo on 10-11-2022 Platelets (Bld) [#/Vol] 249 10*3/uL 150-450 [facility] Serum or plasma albumin todd urement (mass/volume)Ordered By: Dr. Trujillo on 10-11-2022 Albumin [Mass/Vol] 4.0 g/dL 3.2-5.0 [facility] Serum or plasma albumin/glob ulin mass ratioOrdered By: Dr. Trujillo on 10-11-2022 Albumin/Globulin [Mass ratio] 1.3 {ratio} 0.9-2.4 [facility] Serum or plasma calcium todd urement (mass/volume)Ordered By: Dr. Trujillo on 10-11-2022 Calcium [Mass/Vol] 9.2 mg/dL 8.5-10.1 [facility] Serum or plasma cholesterol in HDL measurement (mass/volume)Ordered By: Chris Pineda on 10-11-2022 Cholesterol in HDL [Mass/Vol] 51 mg/dL >40 [facility] Comment on above: The drugs N-Acetylcy steine and Metamizole may falsely depress this assay. Reference Range HDL <40 mg/dL Low HDL Cholesterol HDL >or= 60 mg/dL High HDL Cholesterol Serum or plasma cholesterol in VLDL measurement (mass/volume)Ordered By: Chris Pineda on 10-11-2022 Cholesterol in VLDL [Mass/Vol] 15 mg/dL 5-40 [facility] Serum or plasma creatinine m easurement (mass/volume)Ordered By: Dr. Trujillo on 10-11-2022 Creatinine [Mass/Vol] 1.01 mg/dL 0.70-1.30 [facility] Comment on above: The validity of the calculated GFR & GFRAA in patients over 70 years has not been determined. Clinical correlation is essential. Serum or plasma low density lipoprotein (LDL) cholesterol measurement (mass/volume)Ordered By: Chris Pineda on 10-11-2022 Cholesterol in LDL [Mass/Vol] 62 mg/dL 0-130 [facility] Serum or plasma urea nitroge n measurement (mass/volume)Ordered By: Dr. Trujillo on 10-11-2022 Urea nitrogen [Mass/Vol] 19 mg/dL 7-18 [facility] Thin prep Papanicolaou smear with manual screeningOrdered By: Dr. Trujillo on 10-11-2022 Thin prep Papanicolaou smear with manual screening 14 U/L 15-37 [facility] Thin prep Papanicolaou smear with manual screening 6 5-15 [facility] No Panel InformationOrdered By: Dr. Valladares on 07-15-2022 Prostate Specific Antigen Screen 1.72 ng/mL 0.00-4.00 [facility] Comment on above: This test was perfor med using the TPSA assay method for the[employer] chemistry system. Values obtained with differentassay methods cannot be used interchangably.When changing PSA assays in the course of monitoring apatient, additional sequential testing should be carriedout to confirm baseline values. Absolute lymphocyte countOrd ered By: Dr. Azevedo on 05-16-2022 Lymphocytes Auto (Unsp spec) [#/Vol] 2.24 10*3/uL 0.83-4.51 [facility] Basophil percentageOrdered B y: Dr. Azevedo on 05-16-2022 Basophils/100 WBC (Bld) 0.8 % 0-1 [facility] Chloride [Moles/Vol] 107 mmol/L 98-107 [facility] Eosinophils/100 WBC (Bld) 3.2 % 0-5 [facility] Glucose [Mass/Vol] 100 mg/dL 74-106 [facility] Comment on above: Fasting Glucose resu lt from 100 to 125 mg/dL suggests IMPAIRED HOMEOSTASIS per A.D.A. criteria. Neutrophils (Bld) [#/Vol] 6.2 10*3/uL 2.0-7.7 [facility] Neutrophils/100 WBC (Bld) 64.4 % 47-70 [facility] Potassium [Moles/Vol] 4.2 mmol/L 3.5-5.1 [facility] Sodium [Moles/Vol] 141 mmol/L 136-145 [facility] WBC (Bld) [#/Vol] 9.6 10*3/uL 4.4-11.0 [facility] Blood erythrocytes count (nu mber/volume)Ordered By: Dr. Azevedo on 05-16-2022 RBC (Bld) [#/Vol] 4.92 10*6/uL 4.6-6.2 [facility] Blood hemoglobin measurement (mass/volume)Ordered By: Dr. Azevedo on 05-16-2022 Hemoglobin (Bld) [Mass/Vol] 15.9 g/dL 13.0-16.5 [facility] Blood lymphocytes/100 leukoc ytesOrdered By: Dr. Azevedo on 05-16-2022 Lymphocytes/100 WBC (Bld) 23.3 % 19-41 [facility] Blood monocytes/100 leukocyt esOrdered By: Dr. Azevedo on 05-16-2022 Monocytes/100 WBC (Bld) 7.9 % 0-10 [facility] Blood platelet mean volumeOr dered By: Dr. Azevedo on 05-16-2022 Platelet mean volume (Bld) [Entitic vol] 10.3 fL 6.2-12.0 [facility] Determination of erythrocyte mean corpuscular volume (MCV)Ordered By: Dr. Azevedo on 05-16-2022 MCV (RBC) [Entitic vol] 95.7 fL 80-94 [facility] Hematocrit Auto (Bld) [Volum e fraction]Ordered By: Dr. Azevedo on 05-16-2022 Hematocrit (Bld) [Volume fraction] 47.1 % 40-54 [facility] Laboratory - Chemistry and C hemistry - challengeOrdered By: Dr. Azevedo on 05-16-2022 CO2 [Moles/Vol] 30.0 mmol/L 21.0-32.0 [facility] Urea nitrogen/Creatinine [Mass ratio] 17.3 mg/mg 10-20 [facility] Laboratory - Hematology and Cell countsOrdered By: Dr. Azevedo on 05-16-2022 Erythrocyte distribution width (RBC) [Entitic vol] 46.1 fL 35.1-43.9 [facility] Erythrocyte distribution width (RBC) [Ratio] 13.2 % 11.6-14.6 [facility] Immature granulocytes/100 WBC (Bld) 0.400 % 0.0-0.9 [facility] Comment on above: IG% - Immature Granu locytes (promyelocytes, myelocytes and metamyelocytes) > 1% indicates that a LEFT SHIFT is Present. MCH (RBC) [Entitic mass] 32.3 pg 27.0-32.0 [facility] Nucleated RBC/100 WBC (Bld) [Ratio] 0 % 0-5 [facility] MCHC Auto (RBC) [Mass/Vol]Or dered By: Dr. Azevedo on 05-16-2022 MCHC (RBC) [Mass/Vol] 33.8 g/dL 32-36 [facility] No Panel InformationOrdered By: Dr. Azevedo on 05-16-2022 Estimated GFR (MDRD) Amer 86 mL/min >60 [facility] Comment on above: GFR Calc Estimated GFR (MDRD) Non-Af Amer 71 mL/min >60 [facility] Comment on above: Non- GFR Calc Platelets bldOrdered By: Dr. Azevedo on 05-16-2022 Platelets (Bld) [#/Vol] 295 10*3/uL 150-450 [facility] Serum or plasma calcium todd urement (mass/volume)Ordered By: Dr. Azevedo on 05-16-2022 Calcium [Mass/Vol] 9.3 mg/dL 8.5-10.1 [facility] Serum or plasma creatinine m easurement (mass/volume)Ordered By: Dr. Azevedo on 05-16-2022 Creatinine [Mass/Vol] 1.10 mg/dL 0.70-1.30 [facility] Comment on above: The validity of the calculated GFR & GFRAA in patients over 70 years has not been determined. Clinical correlation is essential. Serum or plasma urea nitroge n measurement (mass/volume)Ordered By: Dr. Azevedo on 05-16-2022 Urea nitrogen [Mass/Vol] 19 mg/dL 7-18 [facility] Thin prep Papanicolaou smear with manual screeningOrdered By: Dr. Azevedo on 05-16-2022 Thin prep Papanicolaou smear with manual screening 4 5-15 [facility] Basophil percentageon 06-28- 2022 Bilirubin [Mass/Vol] 0.40 mg/dL 0.20-1.00 [facility] Work Phone: Comment on above: For patients on eltr ombopag therapy, use of Dimension [place] TBIL is not recommended. Chloride [Moles/Vol] 103 mmol/L 98-107 [facility] Work Phone: Glucose [Mass/Vol] 92 mg/dL 74-106 [facility] Work Phone: [phone] Potassium [Moles/Vol] 4.7 mmol/L 3.5-5.1 [facility] Work Phone: Protein [Mass/Vol] 7.5 g/dL 6.4-8.2 [facility] Work Phone: Sodium [Moles/Vol] 138 mmol/L 136-145 [facility] Work Phone: Laboratory - Chemistry and C hemistry - challengeon 12-04-2021 ALP [Catalytic activity/Vol] 80 U/L 45-117 [facility] Work Phone: ALT [Catalytic activity/Vol] 28 U/L 16-61 [facility] Work Phone: CO2 [Moles/Vol] 30.0 mmol/L 21.0-32.0 [facility] Work Phone: Cobalamin (Vitamin B12) [Mass/Vol] 545 pg/mL 211-911 [facility] Work Phone: Free T4 [Mass/Vol] 0.99 ng/dL 0.76-1.46 [facility] Work Phone: Globulin (S) [Mass/Vol] 3.2 g/dL 2.2-4.2 [facility] Work Phone: Urea nitrogen/Creatinine [Mass ratio] 17.7 mg/mg 10-20 [facility] Work Phone: No Panel Informationon 12-04 Estimated GFR (MDRD) Amer 100 mL/min >60 [facility] Work Phone: Comment on above: GFR Calc Estimated GFR (MDRD) Non-Af Amer 83 mL/min >60 [facility] Work Phone: Comment on above: Non- GFR Calc Vitamin D 25-Hydroxy 59.1 ng/mL [facility] Work Phone: Comment on above: Vitamin D 25(OH) Sta tus Range Deficiency <20 ng/mL (50nmol/L) Insufficiency 20 - 30 ng/mL (50 - 75 nmol/L) Sufficiency 30 - 100 ng/mL (75 - 250 nmol/L) Toxicity >100 ng/mL (>250 nmol/L) Serum or plasma albumin todd urement (mass/volume)on 12-04-2021 Albumin [Mass/Vol] 4.3 g/dL 3.2-5.0 [facility] Work Phone: Serum or plasma albumin/glob ulin mass ratioon 12-04-2021 Albumin/Globulin [Mass ratio] 1.3 {ratio} 0.9-2.4 [facility] Work Phone: Serum or plasma calcium todd urement (mass/volume)on 12-04-2021 Calcium [Mass/Vol] 9.4 mg/dL 8.5-10.1 [facility] Work Phone: Serum or plasma creatinine m easurement (mass/volume)on 12-04-2021 Creatinine [Mass/Vol] 0.96 mg/dL 0.70-1.30 [facility] Work Phone: Comment on above: [facility] validity of the calculated GFR & GFRAA in patients over 70 years has not been determined. Clinical correlation is essential. Serum or plasma urea nitroge n measurement (mass/volume)on 12-04-2021 Urea nitrogen [Mass/Vol] 17 mg/dL 7-18 [facility] Work Phone: Thin prep Papanicolaou smear with manual screeningon 12-04-2021 Thin prep Papanicolaou smear with manual screening 21 U/L 15-37 [facility] Work Phone: Thin prep Papanicolaou smear with manual screening 5 5-15 [facility] Work Phone: Absolute lymphocyte counton 11-28-2021 Lymphocytes Auto (Unsp spec) [#/Vol] 2.17 10*3/uL 0.83-4.51 [facility] Work Phone: Basophil percentageon 2021 Basophils/100 WBC (Bld) 0.7 % 0-1 [facility] Work Phone: Bilirubin [Mass/Vol] 0.60 mg/dL 0.20-1.00 [facility] Work Phone: Comment on above: For patients on eltr ombopag therapy, use of Dimension [place] TBIL is not recommended. Chloride [Moles/Vol] 105 mmol/L 98-107 [facility] Work Phone: Cholesterol [Mass/Vol] 119 mg/dL <200 [facility] Work Phone: Comment on above: <200 mg/dL Desirable 200-240 mg/dL Borderline >240 mg/dL High Risk Eosinophils/100 WBC (Bld) 3.2 % 0-5 [facility] Work Phone: Glucose [Mass/Vol] 91 mg/dL 74-106 [facility] Work Phone: Neutrophils (Bld) [#/Vol] 5.4 10*3/uL 2.0-7.7 [facility] Work Phone: Neutrophils/100 WBC (Bld) 62.2 % 47-70 [facility] Work Phone: Potassium [Moles/Vol] 4.4 mmol/L 3.5-5.1 [facility] Work Phone: Protein [Mass/Vol] 7.0 g/dL 6.4-8.2 [facility] Work Phone: Sodium [Moles/Vol] 139 mmol/L 136-145 [facility] Work Phone: Triglyceride [Mass/Vol] 89 mg/dL <199 [facility] Work Phone: Comment on above: The drugs N-Acetylcy steine and Metamizole may falsely depress this assay.Serum Triglycerides Reference Interval Normal <150 mg/dL Borderline high 150 - 199 mg/dL High 200 - 499 mg/dL Very High > or = 500 mg/dL WBC (Bld) [#/Vol] 8.7 10*3/uL 4.4-11.0 [facility] Work Phone: Blood erythrocytes count (nu mber/volume)on 11-28-2021 RBC (Bld) [#/Vol] 4.75 10*6/uL 4.6-6.2 [facility] Work Phone: Blood hemoglobin measurement (mass/volume)on 11-28-2021 Hemoglobin (Bld) [Mass/Vol] 15.4 g/dL 13.0-16.5 [facility] Work Phone: Blood lymphocytes/100 leukoc yteson 11-28-2021 Lymphocytes/100 WBC (Bld) 24.9 % 19-41 [facility] Work Phone: Blood monocytes/100 leukocyt eson 11-28-2021 Monocytes/100 WBC (Bld) 8.5 % 0-10 [facility] Work Phone: Blood platelet mean volumeon 11-28-2021 Platelet mean volume (Bld) [Entitic vol] 10.1 fL 6.2-12.0 [facility] Work Phone: Determination of erythrocyte mean corpuscular volume (MCV)on 11-28-2021 MCV (RBC) [Entitic vol] 95.6 fL 80-94 [facility] Work Phone: Direct bilirubinon 2 Bilirubin.direct [Mass/Vol] 0.19 mg/dL 0.00-0.30 [facility] Work Phone: Hematocrit Auto (Bld) [Volum e fraction]on 11-28-2021 Hematocrit (Bld) [Volume fraction] 45.4 % 40-54 [facility] Work Phone: Laboratory - Chemistry and C hemistry - challengeon 11-28-2021 ALP [Catalytic activity/Vol] 79 U/L 45-117 [facility] Work Phone: ALT [Catalytic activity/Vol] 25 U/L 16-61 [facility] Work Phone: [phone] CO2 [Moles/Vol] 30.0 mmol/L 21.0-32.0 [facility] Work Phone: Globulin (S) [Mass/Vol] 3.0 g/dL 2.2-4.2 [facility] Work Phone: Urea nitrogen/Creatinine [Mass ratio] 23.5 mg/mg 10-20 [facility] Work Phone: Laboratory - Hematology and Cell countson 11-28-2021 Erythrocyte distribution width (RBC) [Entitic vol] 44.9 fL 35.1-43.9 [facility] Work Phone: Erythrocyte distribution width (RBC) [Ratio] 12.8 % 11.6-14.6 [facility] Work Phone: Immature granulocytes/100 WBC (Bld) 0.500 % 0.0-0.9 [facility] Work Phone: Comment on above: IG% - Immature Granu locytes (promyelocytes, myelocytes and metamyelocytes) > 1% indicates that a LEFT SHIFT is Present. MCH (RBC) [Entitic mass] 32.4 pg 27.0-32.0 [facility] Work Phone: Nucleated RBC/100 WBC (Bld) [Ratio] 0 % 0-5 [facility] Work Phone: MCHC Auto (RBC) [Mass/Vol]on 11-28-2021 MCHC (RBC) [Mass/Vol] 33.9 g/dL 32-36 [facility] Work Phone: No Panel Informationon 11-28 Estimated GFR (MDRD) Amer 103 mL/min >60 [facility] Work Phone: Comment on above: GFR Calc Estimated GFR (MDRD) Non-Af Amer 85 mL/min >60 [facility] Work Phone: Comment on above: Non- GFR Calc Thyroid Stimulating Hormone (TSH) 2.66 uIU/mL 0.358-3.74 [facility] Work Phone: Platelets bldon 11-28-2021 Platelets (Bld) [#/Vol] 243 10*3/uL 150-450 [facility] Work Phone: Serum or plasma albumin todd urement (mass/volume)on 11-28-2021 Albumin [Mass/Vol] 4.0 g/dL 3.2-5.0 [facility] Work Phone: Serum or plasma calcium todd urement (mass/volume)on 11-28-2021 Calcium [Mass/Vol] 9.0 mg/dL 8.5-10.1 [facility] Work Phone: Serum or plasma cholesterol in HDL measurement (mass/volume)on 11-28-2021 Cholesterol in HDL [Mass/Vol] 43 mg/dL >40 [facility] Work Phone: Comment on above: The drugs N-Acetylcy steine and Metamizole may falsely depress this assay. Reference Range HDL <40 mg/dL Low HDL Cholesterol HDL >or= 60 mg/dL High HDL Cholesterol Serum or plasma cholesterol in VLDL measurement (mass/volume)on 11-28-2021 Cholesterol in VLDL [Mass/Vol] 18 mg/dL 5-40 [facility] Work Phone: Serum or plasma creatinine m easurement (mass/volume)on 11-28-2021 Creatinine [Mass/Vol] 0.94 mg/dL 0.70-1.30 [facility] Work Phone: Comment on above: The validity of the calculated GFR & GFRAA in patients over 70 years has not been determined. Clinical correlation is essential. Serum or plasma low density lipoprotein (LDL) cholesterol measurement (mass/volume)on 11-28-2021 Cholesterol in LDL [Mass/Vol] 58 mg/dL 0-130 [facility] Work Phone: Serum or plasma urea nitroge n measurement (mass/volume)on 11-28-2021 Urea nitrogen [Mass/Vol] 22 mg/dL 7-18 [facility] Work Phone: Thin prep Papanicolaou smear with manual screeningon 11-28-2021 Thin prep Papanicolaou smear with manual screening 19 U/L 15-37 [facility] Work Phone: Thin prep Papanicolaou smear with manual screening 4 5-15 [facility] Work Phone: Absolute lymphocyte counton 07-27-2021 Lymphocytes Auto (Unsp spec) [#/Vol] 2.44 10*3/uL 0.83-4.51 [facility] Work Phone: Basophil percentageon 2021 Basophils/100 WBC (Bld) 0.7 % 0-1 [facility] Work Phone: Bilirubin [Mass/Vol] 0.50 mg/dL 0.20-1.00 [facility] Work Phone: Comment on above: For patients on eltr ombopag therapy, use of Dimension [place] TBIL is not recommended. Chloride [Moles/Vol] 108 mmol/L 98-107 [facility] Work Phone: Eosinophils/100 WBC (Bld) 5.3 % 0-5 [facility] Work Phone: Glucose [Mass/Vol] 82 mg/dL 74-106 [facility] Work Phone: Neutrophils (Bld) [#/Vol] 4.4 10*3/uL 2.0-7.7 [facility] Work Phone: Neutrophils/100 WBC (Bld) 55.0 % 47-70 [facility] Work Phone: Potassium [Moles/Vol] 3.8 mmol/L 3.5-5.1 [facility] Work Phone: Protein [Mass/Vol] 6.5 g/dL 6.4-8.2 [facility]: Sodium [Moles/Vol] 139 mmol/L 136-145 [facility] Work Phone: WBC (Bld) [#/Vol] 8.1 10*3/uL 4.4-11.0 [facility] Work Phone: Blood erythrocytes count (nu mber/volume)on 07-27-2021 RBC (Bld) [#/Vol] 4.62 10*6/uL 4.6-6.2 [facility]: Blood hemoglobin measurement (mass/volume)on 07-27-2021 Hemoglobin (Bld) [Mass/Vol] 14.4 g/dL 13.0-16.5 [facility] Work Phone: Blood lymphocytes/100 leukoc yteson 07-27-2021 Lymphocytes/100 WBC (Bld) 30.3 % 19-41 [facility] Work Phone: Blood monocytes/100 leukocyt eson 07-27-2021 Monocytes/100 WBC (Bld) 8.2 % 0-10 [facility] Work Phone: Blood platelet mean volumeon 07-27-2021 Platelet mean volume (Bld) [Entitic vol] 10.3 fL 6.2-12.0 [facility] Work Phone: Determination of erythrocyte mean corpuscular volume (MCV)on 07-27-2021 MCV (RBC) [Entitic vol] 92.9 fL 80-94 [facility] Work Phone: Hematocrit Auto (Bld) [Volum e fraction]on 07-27-2021 Hematocrit (Bld) [Volume fraction] 42.9 % 40-54 [facility] Work Phone: Laboratory - Chemistry and C hemistry - challengeon 07-27-2021 ALP [Catalytic activity/Vol] 77 U/L 45-117 [facility] Work Phone: [phone] ALT [Catalytic activity/Vol] 22 U/L 16-61 [facility] Work Phone: [phone] CO2 [Moles/Vol] 27.0 mmol/L 21.0-32.0 [facility] Work Phone: [phone] Globulin (S) [Mass/Vol] 3.0 g/dL 2.2-4.2 [facility] Work Phone: [phone] Urea nitrogen/Creatinine [Mass ratio] 20.7 mg/mg 10-20 [facility] Work Phone: Laboratory - Hematology and Cell countson 07-27-2021 Erythrocyte distribution width (RBC) [Entitic vol] 44.6 fL 35.1-43.9 [facility] Work Phone: [phone] Erythrocyte distribution width (RBC) [Ratio] 12.9 % 11.6-14.6 [facility] Work Phone: [phone] Immature granulocytes/100 WBC (Bld) 0.500 % 0.0-0.9 [facility] Work Phone: Comment on above: IG% - Immature Granu locytes (promyelocytes, myelocytes and metamyelocytes) > 1% indicates that a LEFT SHIFT is Present. MCH (RBC) [Entitic mass] 31.2 pg 27.0-32.0 [facility] Work Phone: Nucleated RBC/100 WBC (Bld) [Ratio] 0 % 0-5 [facility] Work Phone: [phone] MCHC Auto (RBC) [Mass/Vol]on 07-27-2021 MCHC (RBC) [Mass/Vol] 33.6 g/dL 32-36 [facility] Work Phone: No Panel Informationon 07-27 Estimated Creatinine Clearance Calc 102.75 ml/min [facility] Work Phone: Estimated GFR (MDRD) Amer 120 mL/min >60 [facility] Work Phone: Comment on above: GFR Calc Estimated GFR (MDRD) Non-Af Amer 99 mL/min >60 [facility] Work Phone: Comment on above: Non- GFR Calc Platelets bldon 07-27-2021 Platelets (Bld) [#/Vol] 248 10*3/uL 150-450 [facility] Work Phone: Serum or plasma albumin todd urement (mass/volume)on 07-27-2021 Albumin [Mass/Vol] 3.5 g/dL 3.2-5.0 [facility] Work Phone: Serum or plasma albumin/glob ulin mass ratioon 07-27-2021 Albumin/Globulin [Mass ratio] 1.2 {ratio} 0.9-2.4 [facility] Work Phone: Serum or plasma calcium todd urement (mass/volume)on 07-27-2021 Calcium [Mass/Vol] 8.6 mg/dL 8.5-10.1 [facility] Work Phone: Serum or plasma creatinine m easurement (mass/volume)on 07-27-2021 Creatinine [Mass/Vol] 0.82 mg/dL 0.70-1.30 [facility] Work Phone: Comment on above: The validity of the calculated GFR & GFRAA in patients over 70 years has not been determined. Clinical correlation is essential. Serum or plasma urea nitroge n measurement (mass/volume)on 07-27-2021 Urea nitrogen [Mass/Vol] 17 mg/dL -18 [facility] Work Phone: Thin prep Papanicolaou smear with manual screeningon 07-27-2021 Thin prep Papanicolaou smear with manual screening 16 U/L 15-37 [facility] Work Phone: Thin prep Papanicolaou smear with manual screening 4 5-15 [facility] Work Phone: No Panel Informationon 07-26 Troponin I High Sensitivity 6 pg/mL 3.0-78.0 [facility] Work Phone: Comment on above: Please Note: New Fatimah t Units and Gender Specific Reference Ranges. For more information see Policy Stat Procedure [place] High Sensitivity Troponin (TNIH) and attachments. D-Dimer Quantitative (PE/DVT) 0.30 FEU/ug/m 0.27-0.49 [facility] Work Phone: Comment on above: NORMAL D-Dimer level (<0.50) indicates no DVT or PE. Whole blood hemoglobin A1c/t otal hemoglobin ratio (mass fraction)on 07-26-2021 HbA1c (Bld) [Mass fraction] 5.7 % 3.8-5.6 [facility] Work Phone: Comment on above: Normal < 5.7 % Predi abetic 5.7 - 6.4 % Diabetic >or= 6.5 % Please note range changes. EKGon 03-08-2019 Ordered by an unspecified provider. [facility] BMPon 03-06-2019 Anion gap [Moles/Vol] 12 mmol/L 10 - 2 0 mmol/L [facility] Calcium [Mass/Vol] 9.2 mg/dL 8.4 - 10. 2 mg/dL [facility] Chloride [Moles/Vol] 106 mmol/L 98 - 10 8 mmol/L [facility] Creatinine [Mass/Vol] 1.02 mg/dL 0.8 - 1.3 mg/dL [facility] GFR/1.73 sq M predicted among non-blacks MDRD (S/P/Bld) [Vol rate/Area] The eGFR should be used for monitoring renal function only and not for medication dosing. [facility] GFR/1.73 sq M.predicted CKD-EPI (S/P/Bld) [Vol rate/Area] 77 >=60 mL/min/1.73 m2 [facility] Glucose [Mass/Vol] 134 mg/dL High 65 - 99 mg/dL [facility] HCO3 [Moles/Vol] 27 mmol/L 21 - 32 mmol/L [facility] Potassium [Moles/Vol] 4.0 mmol/L 3.5 - 5.1 mmol/L [facility] Sodium [Moles/Vol] 141 mmol/L 135 - 145 mmol/L [facility] Urea nitrogen [Mass/Vol] 16 mg/dL 8 - 25 mg/dL [facility] Urea nitrogen/Creatinine [Mass ratio] 15.7 mg/mg [facility] CBC WITH AUTO DIFFERENTIALon 03-06-2019 Basophils (Bld) [#/Vol] 0.06 10*3/uL [facility] Basophils/100 WBC (Bld) 0.6 % [facility] Eosinophils (Bld) [#/Vol] 0.26 10*3/uL [facility] Eosinophils/100 WBC (Bld) 2.7 % [facility] Erythrocyte distribution width (RBC) [Entitic vol] 12.7 % 11.6 - 14.8 % [facility] Hematocrit (Bld) [Volume fraction] 43.5 % 41 - 53 % [facility] Hemoglobin (Bld) [Mass/Vol] 15.0 g/dL 13.5 - 17.5 g/dL [facility] Immature granulocytes (Bld) [#/Vol] 0.05 10*3/uL [facility] Immature granulocytes/100 WBC (Bld) 0.50 % [facility] Comment on above: The IG parameter is the percentage of metamyelocytes, myelocytes, and promyelocytes. Lymphocytes (Bld) [#/Vol] 1.89 10*3/uL [facility] Lymphocytes/100 WBC (Bld) 19.4 % [facility] MCH (RBC) [Entitic mass] 31.9 pg 26 - 34 pg [facility] MCHC (RBC) [Mass/Vol] 34.5 g/dL 31 - 37 g/dL [facility] MCV (RBC) [Entitic vol] 92.6 fL 80 - 100 fL [facility] Monocytes (Bld) [#/Vol] 0.63 10*3/uL [facility] Monocytes/100 WBC (Bld) 6.5 % [facility] Neutrophils (Bld) [#/Vol] 6.87 10*3/uL [facility] Neutrophils/100 WBC (Bld) 70.3 % [facility] Nucleated RBC (Bld) [#/Vol] 0.00 10*3/uL [facility] Nucleated RBC/100 WBC (Bld) [Ratio] 0.0 % [facility] Platelet mean volume (Bld) [Entitic vol] 10.5 fL 9 - 15.5 fL [facility] Platelets (Bld) [#/Vol] 256 10*3/uL [facility] RBC (Bld) [#/Vol] 4.70 10*6/uL [facility] WBC (Bld) [#/Vol] 9.76 10*3/uL [facility] ECG 12-LEADon 03-06-2019 Atrial Rate 76 BPM [facility] P Ashley 71 degrees [facility] P-R Interval 144 ms [facility] Q-T Interval 386 ms [facility] QRS Duration 80 ms [facility] QTC Calculation (Bezet) 434 ms [facility] R Ashley 78 degrees [facility] T Ashley 78 degrees [facility] Ventricular Rate 76 BPM [facility] th ECG Cart Interpretation see physician note for interpretation. Poor data quality, interpretation may be adversely affected Normal sinus rhythm with sinus arrhythmia Normal ECG Confirmed by Angi Antonio ([id number]) on 03/06/2019 10:56:03 PM [facility] Otheron 03-06-2019 Extra Tube Hold for add-ons. [facility] Comment on above: Auto resulted. Interpretation and review of laboratory results Abnormal [facility] TROPONINon 03-06-2019 Interpretation and review of laboratory results Abnormal [facility] Troponin I.cardiac [Mass/Vol] 19 % <20% of Baseline Troponin [facility] Troponin I.cardiac [Mass/Vol] 62 ng/L Critically high <=45 [facility] Troponin I.cardiac [Mass/Vol] Probable non-acute cardiac injury or late presentation of acute injury. [facility] Troponin I.cardiac [Mass/Vol] 52 ng/L Critically high <=45 [facility] Troponin I.cardiac [Mass/Vol] Possible acute cardiac injury. [facility] XR CHEST AP/PA AND LATon Interface, [facility] - 03/06/2019 5:40 PM EDT EXAMINATION: [...] suggest mild emphysema. SDH/lab Workstation ID: [id number] [facility] EXAMINATION: XR CHES T AP/PA AND [...] of the shoulders. No acute osseous abnormality. [facility] No acute cardiopulmonary process. Persistent mild flattening of the hemidiaphragms suggest mild emphysema. /lab Workstation ID: [id number] [facility] XR CHEST AP/PA AND LAT EXAMINATION: [...] Mar 06, 2019 5:38:16 PM EDT Normal [facility] Comment on above: Order Comment: Injur y/Trauma or Illness?:Illness/Other How long have you had these symptoms (acute/chronic)?:Acute Reason for exam?:chest pain, hx of recent stents History of cancer?:u Surgeries, chemotherapy, or radiation?:u Type of Exam?:Initial Additional signs and symptoms?:na [facility] 08-07-2018 [facility] HNO ID: [id number] Author: Barbara Paulino) REYNOLD Lindsey Service: Radiology Author Type: Clinical Geophysical Laboratory Supervisor Type: Allied [facility] Filed: 08/07/2018 1:55 PM [...] Tierney August 07, 2018 1:55 PM Normal [facility] APTTon 08-07-2018 aPTT Coag time (Bld) 27.9 s Normal 23.0-32.4 [facility] Comment on above: Result Comment: Unfr [...] laboratory APTT reagent in use throughout the [facility]. Performed By: #### C BCDIF, PT, PTT, CMP #### [facility] [address] [place] [address] CBC and Differentialon 08-07 Abs Baso 0.10 k/uL Normal <0.11 [facility] Comment on above: Performed By: #### C BCDIF, PT, PTT, CMP #### [facility] [address] [address] Abs [place] 0.90 k/uL High <0.87 [facility] Comment on above: Performed By: #### C BCDIF, PT, PTT, CMP #### [facility] [address] [address] Abs Neut 6.49 k/uL Normal 1.45-7.50 [facility] Comment on above: Performed By: #### C BCDIF, PT, PTT, CMP #### [facility] [address] [address] Basophils/100 WBC (Bld) 1.0 % Normal [facility] Comment on above: Performed By: #### C BCDIF, PT, PTT, CMP #### [facility] [address] [place] [address] Eosinophils #/vol (Bld) 0.31 10*3/uL Normal <0.46 [facility] Comment on above: Performed By: #### C BCDIF, PT, PTT, CMP #### [facility] [address] [place] [address] Eosinophils/100 WBC (Bld) 3.1 % Normal [facility] Comment on above: Performed By: #### C BCDIF, PT, PTT, CMP #### [facility] [address] [place] [address] Erythrocyte distribution width Ratio (RBC) 12.9 % Normal 11.5-15.0 [facility] Comment on above: Performed By: #### C BCDIF, PT, PTT, CMP #### [facility] [address] [place] [address] Hematocrit Volume Fraction (Bld) 48.9 % Normal 39.0-51.0 [facility] Comment on above: Performed By: #### C BCDIF, PT, PTT, CMP #### [facility] [address] [place] [address] Hemoglobin mass conc (Bld) 16.3 g/dL Normal 13.0-17.0 [facility] Comment on above: Performed By: #### C BCDIF, PT, PTT, CMP #### [facility] [address] [address] Lymphocytes #/vol (Bld) 2.24 10*3/uL Normal 1.00-4.00 [facility] Comment on above: Performed By: #### C BCDIF, PT, PTT, CMP #### [facility] [address] Lymphocytes/100 WBC (Bld) 22.3 % Normal [facility] Comment on above: Performed By: #### C BCDIF, PT, PTT, CMP #### [facility] [address] [address] MCH Entitic mass (RBC) 31.1 pG Normal 26.0-34.0 [facility] Comment on above: Performed By: #### C BCDIF, PT, PTT, CMP #### [facility] [address] [address] MCHC mass conc (RBC) 33.3 g/dL Normal 30.5-36.0 [facility] Comment on above: Performed By: #### C BCDIF, PT, PTT, CMP #### [facility] [address] [place] [address] MCV Entitic volume (RBC) 93.3 fL Normal 80.0-100.0 [facility] Comment on above: Performed By: #### C BCDIF, PT, PTT, CMP #### [facility] [address] [place] [address] Monocytes/100 WBC (Bld) 9.0 % Normal [facility] Comment on above: Performed By: #### C BCDIF, PT, PTT, CMP #### [facility] [address] [place] [address] Neutrophils/100 WBC (Bld) 64.6 % Normal [facility] Comment on above: Performed By: #### C BCDIF, PT, PTT, CMP #### [facility] [address] [id number] Platelet mean volume Entitic volume (Bld) 10.3 fL Normal 9.0-12.7 [facility] Comment on above: Performed By: #### C BCDIF, PT, PTT, CMP #### [facility] [address] [address] Platelets #/vol (Bld) 261 10*3/uL Normal 150-400 [facility] Comment on above: Performed By: #### C BCDIF, PT, PTT, CMP #### [facility] [address] [phone] RBC #/vol (Bld) 5.24 10*6/uL Normal 4.20-6.00 [facility] Comment on above: Performed By: #### C BCDIF, PT, PTT, CMP #### [facility] [address] [phone] WBC #/vol (Bld) 10.04 10*3/uL Normal 3.70-11.00 [facility] Comment on above: Performed By: #### C BCDIF, PT, PTT, CMP #### [facility] [address] [phone] CT ABD/PEL WO IVCONon 2018 CT ABD/PEL WO IVCON * * *Final Report* * * DATE OF EXAM: Aug 07 2018 1:54PM [facility] [place] ABD/PEL WO IVCON / [...] hernia Nonspecific gastric wall thickening Prostate enlargement Childhood Development Teacher: [facility] Transcribe Date/Time: Aug 07 2018 1:56P Dictated by : NADIA SHEA MD This examination was interpreted and the report reviewed and electronically signed by: NADIA SHEA MD on Aug 07 2018 2:34PM EST [id number] N Normal [facility] Comp Metabolic Panelon 08-07 Albumin mass conc 4.9 g/dL Normal 3.9-4.9 [facility] Comment on above: Performed By: #### C BCDIF, PT, PTT, CMP #### [facility] [address] [place] [address] ALP enzyme act/vol 84 U/L Normal 38-113 [facility] Comment on above: Performed By: #### C BCDIF, PT, PTT, CMP #### [facility] [address] [place], [place] [id number] ALT enzyme act/vol 16 U/L Normal 10-54 [facility] Comment on above: Performed By: #### C BCDIF, PT, PTT, CMP #### [facility] [address] [place] [address] Anion gap molar conc 9 mmol/L Normal 9-18 [facility] Comment on above: Performed By: #### C BCDIF, PT, PTT, CMP #### [facility] [address] [place] [address] AST enzyme act/vol 18 U/L Normal 14-40 [facility] Comment on above: Performed By: #### C BCDIF, PT, PTT, CMP #### [facility] [address] [place] [address] Bilirubin mass conc 0.6 mg/dL Normal 0.2-1.[address] [facility] Comment on above: Performed By: #### C BCDIF, PT, PTT, CMP #### [facility] [address] [place] [address] Calcium mass conc 9.9 mg/dL Normal 8.5-10.2 [facility] Comment on above: Performed By: #### C BCDIF, PT, PTT, CMP #### [facility] [address] [place] [address] Chloride molar conc 101 mmol/L Normal 97-[address] [facility] Comment on above: Performed By: #### C BCDIF, PT, PTT, CMP #### [facility] [address] [place] [address] CO2 molar conc 30 mmol/L Normal 22-30 [facility] Comment on above: Performed By: #### C BCDIF, PT, PTT, CMP #### [facility] [address] [place] [address] Creatinine mass conc 0.86 mg/dL Normal 0.73-1.22 [facility] Comment on above: Performed By: #### C BCDIF, PT, PTT, CMP #### [facility] [address] [place] [address] eGFR- Amer. >60 Normal [facility] Comment on above: Performed By: #### C BCDIF, PT, PTT, CMP #### [facility] [address] [place] [address] GFR/1.73 sq M predicted among non-blacks MDRD vol rate/area (S/P/Bld) mL/min/{1.73_m2} Normal [facility] Comment on above: Result Comment: eGFR (Estimated [...] #### C BCDIF, PT, PTT, CMP #### [facility] [address] [place] [address] Glucose mass conc 99 mg/dL Normal 74-99 [facility] Comment on above: Result Comment: The [place] [employer] (ADA) provides guidance for cutoff [...] Standards of Medical Care in Diabetes 2016, [place] [employer]. Diabetes Care. 2016.39(Suppl 1). Performed By: #### C BCDIF, PT, PTT, CMP #### [facility] [address] [place] [address] Potassium molar conc 4.3 mmol/L Normal 3.7-5.1 [facility] Comment on above: Performed By: #### C BCDIF, PT, PTT, CMP #### [facility] [address] [place] [address] Protein mass conc 7.7 g/dL Normal 6.3-8.0 [facility] Comment on above: Performed By: #### C BCDIF, PT, PTT, CMP #### [facility] [address] [place] [address] Sodium molar conc 140 mmol/L Normal 136-144 [facility] Comment on above: Performed By: #### C BCDIF, PT, PTT, CMP #### [facility] [address] [place] [address] Urea nitrogen mass conc 20 mg/dL Normal 9-24 [facility] Comment on above: Performed By: #### C BCDIF, PT, PTT, CMP #### [facility] [address] [facility] [phone] ED NOTEon 08-07-2018 ED NOTE HNO ID: [id number] Author: Margaret (Rn) AMINATA Lin Service: Nursing Author Type: Registered Nurse Type: ED Notes Filed: 08/07/2018 1:19 PM Note Text: Pt presents to ED with c/o hematuria and clots since yesterday. Pt went to [place] for same thing last night and was told to follow up with a urologist. The urologist that was recommended is out of town and he says the clots are getting bigger and more frequent Normal [facility] ED PROV NOTEon 08-07-2018 Protein mass conc HNO ID: [id number] Author: Arcadio Hess) Suze Service: (none) Author Type: Physician Operations Representative Type: ED Provider Notes Filed: 08/07/2018 10:53 [...] pain. 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 and spouse asl interpreter used: No PAST MEDICAL HISTORY Diagnosis Date [...] the following: Result Value Ref Range Abs [place] 0.90 (*) <0.87 k/uL All other components [...] hernia Nonspecific gastric wall thickening Prostate enlargement Childhood Development Teacher: CHARLIE Transcribe Date/Time: Aug 07 2018 1:56P [...] SIGNATURE: DARRYL Nieto ([place]) 08/07/18 2253 Normal [facility] Protimeon 08-07-2018 Prothrombin time (PT) Coag time (PPP) 10.1 s Normal 9.7-13.0 [facility] Comment on above: Performed By: #### C BCDIF, PT, PTT, CMP #### [facility] [address] [facility] [phone] Prothrombin time (PT) Coag time (PPP) 1.0 s Normal 0.9-1.3 [facility] Comment on above: Result Comment: Love min K Antagonist (VKA) Therapeutic Range: INR 2 to 3 (Target INR of 2.5) Note: For patients treated with VKA drugs, such as warfarin, the [place] [employer] 2012 Guideline recommends [...] #### C BCDIF, PT, PTT, CMP #### [facility] [address] [facility] [phone] Urinalysison 08-07-2018 Bilirubin, Urine Color interference, unable to perform assay. Critically abnormal Negative [facility] Comment on above: Result Comment: Sugg est correlation with clinical findings and serum bilirubin if clinically indicated. Performed By: #### U A, UAMIC #### [facility] [address] [place] [address] Clarity Nom (U) Turbid Critically abnormal Clear [facility] Comment on above: Performed By: #### U A, UAMIC #### [facility] [address] [place] [address] Color Nom (U) Red Critically abnormal Yellow [facility] Comment on above: Performed By: #### U A, UAMIC #### [facility] [address] [place] [address] Glucose Ql (U) Color interference, unable to perform assay. Critically abnormal Negative [facility] Comment on above: Performed By: #### U A, UAMIC #### [facility] [address] [place] [address] Hemoglobin/Blood,Ur Color interference, unable to perform assay. Critically abnormal Negative [facility] Comment on above: Performed By: #### U A, UAMIC #### [facility] [address] [place] [address] Ketones Ql (U) Color interference, unable to perform assay. Critically abnormal Negative [facility] Comment on above: Performed By: #### U A, UAMIC #### [facility] [address] [place] [address] Leukest Color interference, unable to perform assay. Critically abnormal Negative [facility] Comment on above: Performed By: #### U A, UAMIC #### [facility] [address] [place] [address] Nitrite Ql (U) Color interference, unable to perform assay. Critically abnormal Negative [facility] Comment on above: Performed By: #### U A, UAMIC #### [facility] [address] [place] [address] pH (Bld) Color interference, unable to perform assay. Normal 5.0-8.0 [facility] Comment on above: Performed By: #### U A, UAMIC #### [facility] [address] [place] [address] Protein mass conc (U) Color interference , unable to perform assay. Critically abnormal Negative [facility] Comment on above: Performed By: #### U A, UAMIC #### [facility] [address] [place] [address] Specific [place], Ur Color interference, unable to perform assay. Normal 1.001-1.029 [facility] Comment on above: Performed By: #### U A, UAMIC #### [facility] [address] [place] [address] Urobilinogen Qn (U) Color interference, unable to perform assay. Normal 0.2-1.0 [facility] Comment on above: Performed By: #### U A, UAMIC #### [facility] [address] [place] [address] Urine Cultureon 08-07-2018 Bacteria identified Cx Nom (U) Sp. Request/Comment: - Specimen received in preservative Culture Result - 50,000 - <100,000 CFU/ml Normal urogenital mary Normal [facility] Comment on above: Performed By: #### C BCDIF, PT, PTT, CMP #### [facility] [address] [place] [address] Urine Microscopic (FOR LAB U SE ONLY)on 08-07-2018 Bacteria LM.HPF #/area (Urine sed) Few Critically abnormal 0 [facility] Comment on above: Performed By: #### U A, UAMIC #### [facility] [address] [place] [address] Cast SEE COMMENT Normal 0 [facility] Comment on above: Result Comment: 0 Performed By: #### U A, UAMIC #### [facility] [address] [place] [address] RBC #/vol (U) Too numerous to count Critically abnormal 0-3 [facility] Comment on above: Performed By: #### U A, UAMIC #### [facility] [address] [place] [address] WBC #/vol (Bld) 10-30 Critically abnormal 0-5 [facility] Comment on above: Performed By: #### U A, UAMIC #### [facility] [address] [place] [address] CBC with Diffon 05-30-2017 Abs. Basophil 0.00 k/uL Normal 0.0-0.2 [facility] Comment on above: Result Comment: Perf ormed at [facility] [address] [place] [address] Performed By: #### Светлана FAST, CDP, LIPR, MG, TSHX, VD25 ####[facility] [place] [address] Abs.Neutrophil (Seg) 5.80 k/uL Normal 2.1-6.5 [facility] Comment on above: Performed By: #### Светлана FAST, CDP, LIPR, MG, TSHX, VD25 ####[place] [address] [facility] [place] [address] Auto Diff Performed YES Normal [facility] Comment on above: Performed By: #### Светлана FAST, CDP, LIPR, MG, TSHX, VD25 ####[place] [address] [place] [address] Basophils/100 WBC Auto (Bld) 0 % Normal 0-2 [facility] Comment on above: Performed By: #### Светлана FAST, CDP, LIPR, MG, TSHX, VD25 ####[place] [address] [facility] [place] [address] Eosinophils 0.60 10*3/uL High 0.0-0.4 [facility] Comment on above: Performed By: #### Светлана FAST, CDP, LIPR, MG, TSHX, VD25 ####[place] [address] [facility] [place] [address] Eosinophils/100 leukocytes 6 % High 0-5 [facility] Comment on above: Performed By: #### Z FAST, CDP, LIPR, MG, TSHX, VD25 ####[place] [address] [facility] [place] [address] Erythrocyte distribution width Auto Ratio (RBC) 13.4 % Normal 12.1-15.2 [facility] Comment on above: Performed By: #### Светлана FAST, CDP, LIPR, MG, TSHX, VD25 ####[facility] [place] [address] Erythrocytes (RBC) 5.24 10*6/uL Normal 4.5-5.9 [facility] Comment on above: Performed By: #### Z FAST, CDP, LIPR, MG, TSHX, VD25 ####[facility] [place] [address] Hematocrit (HCT) 48.8 % Normal 41-53 [facility] Comment on above: Performed By: #### Светлана FAST, CDP, LIPR, MG, TSHX, VD25 ####[facility] [place] [address] Hemoglobin mass conc (Bld) 16.3 g/dL Normal 13.5-17.5 [facility] Comment on above: Performed By: #### Светлана FAST, CDP, LIPR, MG, TSHX, VD25 ####[place] [address] [place] [address] Lymphocytes 2.00 10*3/uL Normal 1.0-4.8 [facility] Comment on above: Performed By: #### Светлана FAST, CDP, LIPR, MG, TSHX, VD25 ####[facility] [place] [address] Lymphocytes/100 leukocytes 22 % Normal 13-44 [facility] Comment on above: Performed By: #### Z FAST, CDP, LIPR, MG, TSHX, VD25 ####[facility] [place] [address] MCH 31.1 pg Normal 26-34 [facility] Comment on above: Performed By: #### Z FAST, CDP, LIPR, MG, TSHX, VD25 ####[facility] [place] [address] MCHC mass conc (RBC) 33.4 g/dL Normal 31-37 [facility] Comment on above: Performed By: #### Z FAST, CDP, LIPR, MG, TSHX, VD25 ####[facility] [id number] MCV 93.2 fL Normal 80-100 [facility] Comment on above: Performed By: #### Светлана FAST, CDP, LIPR, MG, TSHX, VD25 ####[facility] [place] [address] Monocytes 0.70 10*3/uL Normal 0.0-1.0 [facility] Comment on above: Performed By: #### Светлана FAST, CDP, LIPR, MG, TSHX, VD25 ####[place] [address] [place] [address] Monocytes/100 leukocytes 8 % Normal 5-9 [facility] Comment on above: Performed By: #### Светлана FAST, CDP, LIPR, MG, TSHX, VD25 ####[facility] [place] [address] Neutrophil (Seg) 64 % Normal 39-75 [facility] Comment on above: Performed By: #### Светлана FAST, CDP, LIPR, MG, TSHX, VD25 ####[facility] [place] [address] Platelets 256 10*3/uL Normal 140-450 [facility] Comment on above: Performed By: #### Z FAST, CDP, LIPR, MG, TSHX, VD25 ####[facility] [phone] WBC (Leukocytes) 9.0 10*3/uL Normal 3.5-11.0 [facility] Comment on above: Performed By: #### Светлана FAST, CDP, LIPR, MG, TSHX, VD25 ####[facility] [place] [address] Erythrocyte morphology NOT REPORTED Normal [facility] Comment on above: Performed By: #### Z FAST, CDP, LIPR, MG, TSHX, VD25 ####[facility] [place] [address] Granulocytes/100 WBC (Bld) NOT REPORTED Normal 0.00-0.30 [facility] Comment on above: Performed By: #### Z FAST, CDP, LIPR, MG, TSHX, VD25 ####[facility] [place] [address] Immature granulocytes #/vol (Bld) NOT REPORTED Normal 0 [facility] Comment on above: Performed By: #### Светлана FAST, CDP, LIPR, MG, TSHX, VD25 ####[facility] [place] [address] Platelet mean volume (PMV) NOT REPORTED Normal 6.0-12.0 [facility] Comment on above: Performed By: #### Светлана FAST, CDP, LIPR, MG, TSHX, VD25 ####[facility] [place] [address] Platelets NOT REPORTED Normal [facility] Comment on above: Performed By: #### Светлана FAST, CDP, LIPR, MG, TSHX, VD25 ####[facility] [place] [address] WBC Morphology NOT REPORTED Normal [facility] Comment on above: Performed By: #### Z FAST, CDP, LIPR, MG, TSHX, VD25 ####[facility] [place] [address] Lipid Profileon 05-30-2017 Cholesterol 254 mg/dL High <200 [facility] Comment on above: Result Comment: Chol esterol Guidelines: <200 Desirable 200-240 Borderline >240 Undesirable Performed By: #### Z FAST, CDP, LIPR, MG, TSHX, VD25 ####[facility] [place] [address] Cholesterol to HDL Ratio 4.9 {ratio} Normal <5 [facility] Comment on above: Performed By: #### Z FAST, CDP, LIPR, MG, TSHX, VD25 ####[facility] [place] [address] HDL Cholesterol 52 mg/dL Normal >40 [facility] Comment on above: Result Comment: HDL Guidelines: <40 Undesirable 40-59 Borderline >59 Desirable Performed By: #### Z FAST, CDP, LIPR, MG, TSHX, VD25 ####[place] [address] [place] [address] LDL Cholesterol 175 mg/dL High 0-130 [facility] Comment on above: Result Comment: LDL Guidelines: <100 Desirable 100-129 Near to/above Desirable 130-159 Borderline >159 UndesirableDirect (measured) LDL and calculated LDL are not interchangeable tests. Performed By: #### Z FAST, CDP, LIPR, MG, TSHX, VD25 ####[place] [address] [place] [address] Triglyceride 136 mg/dL Normal <150 [facility] Comment on above: Result Comment: Trig lyceride Guidelines: <150 Desirable 150- 199 Borderline 200-499 High >499 Very high Based on AHA Guidelines for fasting triglyceride, March 2012.Performed at [facility] [address] [place] [address] Performed By: #### Z FAST, CDP, LIPR, MG, TSHX, VD25 ####[place] [address] [place] [address] Cholesterol in VLDL mass conc NOT REPORTED Normal 1-30 [facility] Comment on above: Performed By: #### Z FAST, CDP, LIPR, MG, TSHX, VD25 ####[facility], [place] [id number] Magnesiumon 05-30-2017 Magnesium 2.3 mg/dL Normal 1.6-2.6 [facility] Comment on above: Result Comment: Perf ormed at [facility] [address] [place], [place] [phone] ([phone]) Performed By: #### Z FAST, CDP, LIPR, MG, TSHX, VD25 ####[facility] [place] [phone] Patient fasting?on 7 Patient fasting? YES Normal [facility] Comment on above: Result Comment: Perf ormed at [facility] [address] [facility] [place] [address] [phone] Performed By: #### Z FAST, CDP, LIPR, MG, TSHX, VD25 ####[place] [address] [facility] [place] [phone] TSH w/reflex to FT4on 2016 Thyroid stimulating hormone (TSH) 3.87 m[IU]/L Normal 0.30-5.00 [facility] Comment on above: Result Comment: Perf ormed at [facility] [address] [facility] [place] [address] ([phone]) Performed By: #### Z FAST, CDP, LIPR, MG, TSHX, VD25 ####[place] [address] [facility], [place] [id number] Vitamin D 25 OHon 05-30-2017 Vitamin D 25 [place] 35.8 ng/mL Normal 30.0-100.0 [facility] Comment on above: Result Comment: Refe rence Range:Vitamin D status Range Deficiency <20 ng/mL Mild Deficiency 20-30 ng/mL Sufficiency 30-100 ng/mL Toxicity >100 ng/mLPerformed at [facility] [address] [facility] [place] [address] ([phone]) Performed By: #### Z FAST, CDP, LIPR, MG, TSHX, VD25 ####[facility] [place] [address] XR CHEST STANDARD TWO VWon 1 07-31-2016 XR CHEST STANDARD TWO VW TWO-VIEW CHESTREASON FOR STUDY: History of cardiac disease, follow-up evaluation.COMPARISON : None.REPORT: Trachea, mediastinum, and heart size are unremarkable. The lungs are clear and well aerated. No effusion or pneumothorax or nodules noted. Diaphragm and bony elements are intact.IMPRESSION: Nonacute two-view chest.Interpreted by:Octavio Jarrell, DOSigned by:Octavio Jarrell, DO05/30/17Final result Normal [facility] CBC with Diffon 05-22-2017 Basophils Auto #/vol (Bld) 0.1 K/mcL Normal 0-0.2 [facility] Comment on above: Performed By: #### C BCDIF, EDCTNI, CMET, LIPASE, NTPROBNP ####Unless otherwise noted, all testing performed by [address] [phone]: [id number] Director: Carrillo Willis M.D. Basophils/100 WBC Auto (Bld) 0.9 % Normal [facility] Comment on above: Performed By: #### C BCDIF, EDCTNI, CMET, LIPASE, NTPROBNP ####Unless otherwise noted, all testing performed by [address] [phone]: [id number] Director: Carrillo Willis M.D. Eosinophils 0.2 K/mcL Normal 0-0.5 [facility] Comment on above: Performed By: #### C BCDIF, EDCTNI, CMET, LIPASE, NTPROBNP ####Unless otherwise noted, all testing performed by [address] [phone]: [id number] Director: Carrillo Willis M.D. Eosinophils/100 leukocytes 2.4 % Normal [facility] Comment on above: Performed By: #### C BCDIF, EDCTNI, CMET, LIPASE, NTPROBNP ####Unless otherwise noted, all testing performed by [address] [phone]: [id number] Director: Carrillo Willis M.D. Erythrocyte distribution width Auto Ratio (RBC) 12.8 % Normal 10-14.3 [facility] Comment on above: Performed By: #### C BCDIF, EDCTNI, CMET, LIPASE, NTPROBNP ####Unless otherwise noted, all testing performed by [place] [phone]: [id number] Director: Carrillo Willis M.D. Erythrocytes (RBC) 5.09 M/mcL Normal 4.0-5.5 [facility] Comment on above: Performed By: #### C BCDIF, EDCTNI, CMET, LIPASE, NTPROBNP ####Unless otherwise noted, all testing performed by [address] [phone]: [id number] Director: Carrillo Willis M.D. Hematocrit (HCT) 47.7 % Normal 37.9-49.[address] [facility] Comment on above: Performed By: #### C BCDIF, EDCTNI, CMET, LIPASE, NTPROBNP ####Unless otherwise noted, all testing performed by [address] [phone]: [id number] Director: Carrillo Willis M.D. Hemoglobin mass conc (Bld) 16.6 g/dL Normal 12.9-16.9 [facility] Comment on above: Performed By: #### C BCDIF, EDCTNI, CMET, LIPASE, NTPROBNP ####Unless otherwise noted, all testing performed by [address] [phone]: [id number] Director: Carrillo Willis M.D. Lymphocytes 1.7 K/mcL Normal 0.9-3.6 [facility] Comment on above: Performed By: #### C BCDIF, EDCTNI, CMET, LIPASE, NTPROBNP ####Unless otherwise noted, all testing performed by [address] [phone]: [id number] Director: Carrillo Willis M.D. Lymphocytes/100 leukocytes 19.4 % Normal [facility] Comment on above: Performed By: #### C BCDIF, EDCTNI, CMET, LIPASE, NTPROBNP ####Unless otherwise noted, all testing performed by [address] [phone]: [id number] Director: Carrillo Willis M.D. MCH 32.5 pg Normal 27.7-34.6 [facility] Comment on above: Performed By: #### C BCDIF, EDCTNI, CMET, LIPASE, NTPROBNP ####Unless otherwise noted, all testing performed by [address] [phone]: [id number] Director: Carrillo Willis M.D. MCHC mass conc (RBC) 34.8 g/dL Normal 32.9-35.5 [facility] Comment on above: Performed By: #### C BCDIF, EDCTNI, CMET, LIPASE, NTPROBNP ####Unless otherwise noted, all testing performed by [address] [phone]: [id number] Director: Carrillo Willis M.D. MCV 93.6 fL Normal 82.8-99.3 [facility] Comment on above: Performed By: #### C BCDIF, EDCTNI, CMET, LIPASE, NTPROBNP ####Unless otherwise noted, all testing performed by [address] [phone]: [id number] Director: Carrillo Willis M.D. Monocytes 0.6 K/mcL Normal 0.2-0.6 [facility] Comment on above: Performed By: #### C BCDIF, EDCTNI, CMET, LIPASE, NTPROBNP ####Unless otherwise noted, all testing performed by [address] [phone]: [id number] Director: Carrillo Willis M.D. Monocytes/100 leukocytes 6.8 % Normal [facility] Comment on above: Performed By: #### C BCDIF, EDCTNI, CMET, LIPASE, NTPROBNP ####Unless otherwise noted, all testing performed by [address] [phone]: [id number] Director: Carrillo Willis M.D. Neutrophils 6.3 K/mcL Normal 1.4-6.8 [facility] Comment on above: Performed By: #### C BCDIF, EDCTNI, CMET, LIPASE, NTPROBNP ####Unless otherwise noted, all testing performed by [address] [phone]: [id number] Director: Carrillo Willis M.D. Platelet mean volume (PMV) 8.4 fL Normal 6.6-10.8 [facility] Comment on above: Performed By: #### C BCDIF, EDCTNI, CMET, LIPASE, NTPROBNP ####Unless otherwise noted, all testing performed by [address] [phone]: [id number] Director: Carrillo Willis M.D. Platelets 219 K/mcL Normal 139-354 [facility] Comment on above: Performed By: #### C BCDIF, EDCTNI, CMET, LIPASE, NTPROBNP ####Unless otherwise noted, all testing performed by [address] [phone]: [id number] Director: Carrillo Willis M.D. Segmented Neut % 70.5 % Normal [facility] Comment on above: Performed By: #### C BCDIF, EDCTNI, CMET, LIPASE, NTPROBNP ####Unless otherwise noted, all testing performed by [address] [phone]: [id number] Director: Carrillo Willis M.D. WBC (Leukocytes) 9.0 K/mcL Normal 3.6-10.[address] [facility] Comment on above: Performed By: #### C BCDIF, EDCTNI, CMET, LIPASE, NTPROBNP ####Unless otherwise noted, all testing performed by [address] [address] [phone]: [id number] Director: Carrillo Willis M.D. CHEST PA AND LATERALon 05-22 CHEST PA AND LATERAL Final ReportAccession No: [id number] Performed: May 22 2017 11:59AMExamination: CHEST [...] Physician: JORGE GIRON D.O.Trans: : cc: Normal [facility] Comprehensive Metabolic Pane coral 05-22-2017 Alanine aminotransferase (ALT) 23 U/L Normal 14-65 [facility] Comment on above: Result Comment: This test result might be falsely depressed or falsely elevated onsamples drawn from patients taking Sulfasalazine and Sulfapyridine.Venipuncture should occur prior to taking either of these drugs. Performed By: #### C BCDIF, EDCTNI, CMET, LIPASE, NTPROBNP ####Unless otherwise noted, all testing performed by [address], [place] [phone]: [id number] Director: Carrillo Willis M.D. Albumin 4.1 g/dL Normal 3.2-5.2 [facility] Comment on above: Performed By: #### C BCDIF, EDCTNI, CMET, LIPASE, NTPROBNP ####Unless otherwise noted, all testing performed by [address] [phone]: [id number] Director: Carrillo Willis M.D. Alkaline phosphatase (ALP) 85 U/L Normal 40-150 [facility] Comment on above: Performed By: #### C BCDIF, EDCTNI, CMET, LIPASE, NTPROBNP ####Unless otherwise noted, all testing performed by [address] [id number]: [id number] Director: Carrillo Willis M.D. Aspartate aminotransferase (AST) 15 U/L Normal 0-45 [facility] Comment on above: Result Comment: This test result might be falsely depressed or falsely elevated onsamples drawn from patients taking Sulfasalazine and Sulfapyridine.Venipuncture should occur prior to taking either of these drugs. Performed By: #### C BCDIF, EDCTNI, CMET, LIPASE, NTPROBNP ####Unless otherwise noted, all testing performed by [address] [phone]: [id number] Director: Carrillo Willis M.D. Bilirubin (total) 0.4 mg/dL Normal 0.3-1.2 [facility] Comment on above: Performed By: #### C BCDIF, EDCTNI, CMET, LIPASE, NTPROBNP ####Unless otherwise noted, all testing performed by [address] [phone]: [id number] Director: Carrillo Willis M.D. Calcium 9.5 mg/dL Normal 8.4-10.2 [facility] Comment on above: Performed By: #### C BCDIF, EDCTNI, CMET, LIPASE, NTPROBNP ####Unless otherwise noted, all testing performed by [address] [phone]: [id number] Director: Carrillo Willis M.D. Chloride 104 mmol/L Normal 98-108 [facility] Comment on above: Performed By: #### C BCDIF, EDCTNI, CMET, LIPASE, NTPROBNP ####Unless otherwise noted, all testing performed by [address] [phone]: [id number] Director: Carrillo Willis M.D. CO2 29 mmol/L Normal 21-32 [facility] Comment on above: Performed By: #### C BCDIF, EDCTNI, CMET, LIPASE, NTPROBNP ####Unless otherwise noted, all testing performed by [address] [phone]: [id number] Director: Carrillo Willis M.D. Creatinine 0.91 mg/dL Normal 0.80-1.30 [facility] Comment on above: Performed By: #### C BCDIF, EDCTNI, CMET, LIPASE, NTPROBNP ####Unless otherwise noted, all testing performed by [address] [phone]: [id number] Director: Carrillo Willis M.D. eGFR (black) mL/min/{1.73_m2} Normal [facility] Comment on above: Result Comment: Afri can Mongolian GFR Calc Performed By: #### C BCDIF, EDCTNI, CMET, LIPASE, NTPROBNP ####Unless otherwise noted, all testing performed by [address] [phone]: [id number] Director: Carrillo Willis M.D. eGFR (non-black) mL/min/{1.73_m2} Normal [facility] Comment on above: Result Comment: Non- [...] ####Unless otherwise noted, all testing performed by [address] [phone]: [id number] Director: Carrillo Willis M.D. Glucose mass conc 105 mg/dL High 70-99 [facility] Comment on above: Result Comment: This test result might be falsely depressed or falsely elevated onsamples drawn from patients taking Sulfasalazine and Sulfapyridine.Venipuncture should occur prior to taking either of these drugs. Performed By: #### C BCDIF, EDCTNI, CMET, LIPASE, NTPROBNP ####Unless otherwise noted, all testing performed by [address] [phone]: [id number] Director: Carrillo Willis M.D. Potassium molar conc 4.3 mmol/L Normal 3.5-5.1 [facility] Comment on above: Performed By: #### C BCDIF, EDCTNI, CMET, LIPASE, NTPROBNP ####Unless otherwise noted, all testing performed by [address] [phone]: [id number] Director: Carrillo Willis M.D. Protein 7.4 g/dL Normal 6.0-8.0 [facility] Comment on above: Performed By: #### C BCDIF, EDCTNI, CMET, LIPASE, NTPROBNP ####Unless otherwise noted, all testing performed by [address] [phone]: [id number] Director: Carrillo Willis M.D. Sodium 140 mmol/L Normal 135-145 [facility] Comment on above: Performed By: #### C BCDIF, EDCTNI, CMET, LIPASE, NTPROBNP ####Unless otherwise noted, all testing performed by [address] [phone]: [id number] Director: Carrillo Willis M.D. Urea nitrogen 16 mg/dL Normal 8-25 [facility] Comment on above: Performed By: #### C BCDIF, EDCTNI, CMET, LIPASE, NTPROBNP ####Unless otherwise noted, all testing performed by [address] [phone]: [id number] Director: Carrillo Willis M.D. ED Cardiac Troponin-Ion 12- Troponin I.cardiac mass conc ng/mL Normal < 45 [facility] Comment on above: Result Comment: Elev [...] ####Unless otherwise noted, all testing performed by [address] [phone]: [id number] Director: Carrillo Willis M.D. Lipaseon 05-22-2017 Lipase 124 U/L Normal 73-393 [facility] Comment on above: Performed By: #### C BCDIF, EDCTNI, CMET, LIPASE, NTPROBNP ####Unless otherwise noted, all testing performed by [address] [phone]: [id number] Director: Carrillo Willis M.D. NT-Pro BNP, Serumon 05-22-20 17 BNP 52 pg/mL Normal 0-125 [facility] Comment on above: Performed By: #### C BCDIF, EDCTNI, CMET, LIPASE, NTPROBNP ####Unless otherwise noted, all testing performed by [address] [phone]: [id number] Director: Carrillo Willis M.D. Vital Signs Date Time Vital Sign Value Performing Clinician Facility 12-14-2024 10:55-0400 Body height 190.[address] Melvin Trujillo MD Work Phone: [facility] 12-14-2024 10:55-0400 Body mass index (BMI) [Ratio] 22.4 kg/m2 Dr. Melvin Trujillo MD Work Phone: [facility] 12-14-2024 10:55-0400 Body weight 81.[address] Melvin Trujillo MD Work Phone: [facility] 12-14-2024 10:55-0400 Diastolic blood pressure 76 mm[Hg] Dr. Melvin Trujillo MD Work Phone: [facility] 12-14-2024 10:55-0400 Heart rate 71 /min Dr. Melvin Trujillo MD Work Phone: [facility] 12-14-2024 10:55-0400 Respiratory rate 16 /min Dr. Melvin Trujillo MD Work Phone: [facility] 12-14-2024 10:55-0400 Systolic blood pressure 124 mm[Hg] Dr. Melvin Trujillo MD Work Phone: [facility] 10-04-2022 10:47-0400 Body height 190.[address] Melvin Trujillo Work Phone: [facility] 10-04-2022 10:47-0400 Body mass index (BMI) [Ratio] 20.7 kg/m2 Dr. Melvin Trujillo Work Phone: [phone] [place] [address] 10-04-2022 10:47-0400 Body weight 75.[address] Melvin Trujillo Work Phone: [facility] 10-04-2022 10:47-0400 Diastolic blood pressure 73 mm[Hg] Dr. Melvin Trujillo Work Phone: [facility] 10-04-2022 10:47-0400 Heart rate 68 /min Dr. Melvin Trujillo Work Phone: [facility] 10-04-2022 10:47-0400 Respiratory rate 18 /min Dr. Melvin Trujillo Work Phone: [facility] 10-04-2022 10:47-0400 SaO2% (BldA) [Mass fraction] 99 % Dr. Melvin Trujillo Work Phone: [facility] 10-04-2022 10:47-0400 Systolic blood pressure 131 mm[Hg] Dr. Melvin Trujillo Work Phone: [facility] 05-22-2022 10:28-0500 Body height 190.[address] Melvin Trujillo Work Phone: [facility] 05-22-2022 10:28-0500 Body weight 73.[address] Melvin Trujillo Work Phone: [facility] 05-21-2022 07:45-0500 Body mass index (BMI) [Ratio] 20.3 kg/m2 Dr. Melvin Trujillo Work Phone: [facility] 05-16-2022 09:22-0500 Body mass index (BMI) [Ratio] 20.3 kg/m2 Dr. Melvin Trujillo Work Phone: [facility] 05-16-2022 09:22-0500 Body weight 73.[address] Melvin Trujillo Work Phone: [facility] 05-16-2022 09:22-0500 Diastolic blood pressure 84 mm[Hg] Dr. Melvin Trujillo Work Phone: [facility] 05-16-2022 09:22-0500 Heart rate 79 /min Dr. Melvin Trujillo Work Phone: [facility] 05-16-2022 09:22-0500 Respiratory rate 16 /min Dr. Melvin Trujillo Work Phone: [facility] 05-16-2022 09:22-0500 Systolic blood pressure 142 mm[Hg] Dr. Melvin Trujillo Work Phone: [facility] 01-24-2022 08:50-0400 Body mass index (BMI) [Ratio] 20.2 kg/m2 Dr. Melvin Trujillo Work Phone: [facility] Work Phone: 01-24-2022 08:50-0400 Body temperature 97.8 [degF] Dr. Melvin Trujillo Work Phone: [facility] Work Phone: 01-24-2022 08:50-0400 Body weight 73.[address] Melvin Trujillo Work Phone: [facility] Work Phone: 01-24-2022 08:50-0400 Diastolic blood pressure 82 mm[Hg] Dr. Melvin Trujillo Work Phone: [facility] Work Phone: 01-24-2022 08:50-0400 Heart rate 79 /min Dr. Melvin Trujillo Work Phone: [facility] Work Phone: 01-24-2022 08:50-0400 Respiratory rate 17 /min Dr. Melvin Trujillo Work Phone: [facility] Work Phone: 01-24-2022 08:50-0400 SaO2% (BldA) [Mass fraction] 96 % Dr. Melvin Trujillo Work Phone: [facility] Work Phone: 01-24-2022 08:50-0400 Systolic blood pressure 149 mm[Hg] Dr. Melvin Trujillo Work Phone: [facility] Work Phone: 11-27-2021 10:31-0400 Body height 190.[address] Melvin Trujillo Work Phone: [facility] Work Phone: 11-27-2021 10:31-0400 Body mass index (BMI) [Ratio] 22.6 kg/m2 Dr. Melvin Trujillo Work Phone: [facility] Work Phone: 11-27-2021 10:31-0400 Body weight 82.[address] Melvin Trujillo Work Phone: [facility] Work Phone: 11-27-2021 10:31-0400 Diastolic blood pressure 74 mm[Hg] Dr. Melvin Trujillo Work Phone: [facility] Work Phone: 11-27-2021 10:31-0400 Heart rate 82 /min Dr. Melvin Trujillo Work Phone: [facility] Work Phone: 11-27-2021 10:31-0400 Respiratory rate 18 /min Dr. Melvin Trujillo Work Phone: [facility] Work Phone: 11-27-2021 10:31-0400 SaO2% (BldA) [Mass fraction] 94 % Dr. Melvin Trujillo Work Phone: [facility] Work Phone: 11-27-2021 10:31-0400 Systolic blood pressure 122 mm[Hg] Dr. Melvin Trujillo Work Phone: [facility] Work Phone: 08-21-2021 10:28-0400 Body height 190.[address] Melvin Trujillo Work Phone: [facility] Work Phone: 08-21-2021 10:28-0400 Body mass index (BMI) [Ratio] 23.6 kg/m2 Dr. Melvin Trujillo Work Phone: [facility] Work Phone: 08-21-2021 10:28-0400 Body weight 85.[address] Melvin Trujillo Work Phone: [facility] Work Phone: 08-21-2021 10:28-0400 Diastolic blood pressure 80 mm[Hg] Dr. Melvin Trujillo Work Phone: [facility] Work Phone: 08-21-2021 10:28-0400 Heart rate 76 /min Dr. Melvin Trujillo Work Phone: [facility] Work Phone: 08-21-2021 10:28-0400 Respiratory rate 18 /min Dr. Melvin Trujillo Work Phone: [facility] Work Phone: 08-21-2021 10:28-0400 Systolic blood pressure 138 mm[Hg] Dr. Melvin Trujillo Work Phone: [facility] Work Phone: 08-21-2021 10:28-0400 Body height 190.[address] Melvin Trujillo Work Phone: [facility] Work Phone: 08-21-2021 10:28-0400 Body mass index (BMI) [Ratio] 23.6 kg/m2 Dr. Melvin Trujillo Work Phone: [facility] Work Phone: 08-21-2021 10:28-0400 Body weight 85.[address] Melvin Trujillo Work Phone: [facility] Work Phone: 08-21-2021 10:28-0400 Diastolic blood pressure 80 mm[Hg] Dr. Melvin Trujillo Work Phone: [facility] Work Phone: 08-21-2021 10:28-0400 Heart rate 76 /min Dr. Melvin Trujillo Work Phone: [facility] Work Phone: 08-21-2021 10:28-0400 Respiratory rate 18 /min Dr. Melvin Trujillo Work Phone: [facility] Work Phone: 08-21-2021 10:28-0400 Systolic blood pressure 138 mm[Hg] Dr. Melvin Trujillo Work Phone: [facility] Work Phone: 07-27-2021 13:30-0500 Body temperature 98.2 [degF] Dr. Melvin Trujillo Work Phone: [facility] Work Phone: 07-27-2021 13:30-0500 Diastolic blood pressure 59 mm[Hg] Dr. Melvin Trujillo Work Phone: [facility] Work Phone: 07-27-2021 13:30-0500 Heart rate 67 /min Dr. Melvin Trujillo Work Phone: [facility] Work Phone: 07-27-2021 13:30-0500 Respiratory rate 14 /min Dr. Melvin Trujillo Work Phone: [facility] Work Phone: 07-27-2021 13:30-0500 SaO2% (BldA) [Mass fraction] 96 % Dr. Melvin Trujillo Work Phone: [facility] Work Phone: 07-27-2021 13:30-0500 Systolic blood pressure 103 mm[Hg] Dr. Melvin Trujillo Work Phone: [facility] Work Phone: 07-27-2021 12:30-0500 Body temperature 98.2 [degF] Dr. Melvin Trujillo Work Phone: [facility] Work Phone: 07-27-2021 12:30-0500 Diastolic blood pressure 59 mm[Hg] Dr. Melvin Trujillo Work Phone: [facility] Work Phone: 07-27-2021 12:30-0500 Heart rate 67 /min Dr. Melvin Trujillo Work Phone: [facility] Work Phone: 07-27-2021 12:30-0500 Respiratory rate 14 /min Dr. Melvin Trujillo Work Phone: [facility] Work Phone: 07-27-2021 12:30-0500 SaO2% (BldA) [Mass fraction] 96 % Dr. Melvin Trujillo Work Phone: [facility] Work Phone: 07-27-2021 12:30-0500 Systolic blood pressure 103 mm[Hg] Dr. Melvin Trujillo Work Phone: [facility] Work Phone: 07-26-2021 19:54-0500 Body mass index (BMI) [Ratio] 22.8 kg/m2 Dr. Melvin Trujillo Work Phone: [facility] Work Phone: 07-26-2021 19:54-0500 Body weight 83.[address] Melvin Trujillo Work Phone: [facility] Work Phone: 07-26-2021 18:54-0500 Body mass index (BMI) [Ratio] 22.8 kg/m2 Dr. Melvin Trujillo Work Phone: [facility] Work Phone: 07-26-2021 18:54-0500 Body weight 83.[address] Melvin Trujillo Work Phone: [facility] Work Phone: 03-06-2019 17:00-0400 Pulse (Heart Rate) 72 /min [facility] 03-06-2019 17:00-0400 Pulse Oximetry 99 % [facility] 03-06-2019 15:30-0400 Respiratory Rate 18 /min [facility] 03-06-2019 13:00-0400 BP Diastolic 82 mm[Hg] [facility] 03-06-2019 13:00-0400 BP Systolic 122 mm[Hg] [facility] 03-06-2019 12:15-0400 Body Temperature 97.59 [degF] [facility] Encounters Encounter Date Encounter Type Care Provider Facility Start: 02-28-2025 Patient encounter procedure Kade Bright FILTER [employer]SEM[employer]ER-C -Cat Scan [facility] Work Phone: Start: 02-28-2025 End: 02-28-2025 ambulatory Melvin Trujillo Facility:[facility] Start: 02-22-2025 End: 02-22-[address] Melvin Trujillo MD Work Phone: -Laboratory Start: 02-22-2025 End: 02-22-[address] Hilario Valladares MD -Laboratory Work Phone: Start: 02-22-2025 End: 02-22-2025 ambulatory Melvin Trujillo Facility:[facility] Start: 12-14-2024 End: 12-14-2024 Patient encounter procedure Chris Mirna Edwin ROMANO-C -[facility] Work Phone: Start: 12-14-2024 End: 12-14-[address] Melvin Trujillo MD Work Phone: -[facility] Start: 07-20-2024 End: 07-20-2024 ambulatory Melvin Trujillo Facility:[facility] Start: 09-23-2023 End: 09-23-2023 ambulatory [facility] Work Phone: Start: 09-23-2023 End: 09-23-2023 Patient encounter procedure [facility] Start: 05-08-2023 End: 05-08-2023 ambulatory [facility] Work Phone: Start: 05-08-2023 End: 05-08-2023 Patient encounter procedure [facility] [place] [facility] Work Phone: Start: 01-21-2023 End: 01-21-[address] Melvin Trujillo Work Phone: [facility] Work Phone: Start: 01-21-2023 End: 01-21-[address] Melvin Trujillo Work Phone: [facility] Start: 11-26-2022 End: 11-26-[address] Melvin Trujillo Work Phone: [facility] Work Phone: Start: 11-26-2022 End: 11-26-[address] Melvin Trujillo Work Phone: [facility]-Cat Scan, [facility] Start: 11-06-2022 End: 11-06-[address] Vinayak Edmonds Facility:[id number] Start: 11-06-2022 End: 11-06-2022 Subsequent hospital visit by physician Vinayak Edmonds DO Work Phone: [facility] Comment on above: Encounter for screen ing for malignant neoplasm of colon; Polyp of colon; Essential (primary) hypertension; Pure hypercholesterolemia, unspecified; Benign prostatic hyperplasia without lower urinary tract symptoms; Chronic obstructive pulmonary disease, unspecified ([facility]) Start: 10-11-2022 End: 10-11-[address] Melvin Trujillo Work Phone: [facility] Work Phone: Start: 10-11-2022 End: 10-11-[address] Melvin Trujillo Work Phone: [facility]-Laboratory Start: 10-04-2022 End: 10-04-[address] Melvin Trujillo Work Phone: [facility] Start: 07-15-2022 End: 07-15-[address] Melvin Trujillo Work Phone: [facility] Work Phone: Start: 07-15-2022 End: 07-15-[address] Melvin Trujillo Work Phone: [facility]-Laboratory Start: 06-21-2022 Non-patient / Non-visit Dr. Marshal Trujillo Work Phone: [facility] Start: 06-21-2022 Non-patient / Non-visit Dr. Marshal Trujillo Work Phone: [facility] Start: 06-21-2022 End: 06-21-[address] Melvin Trujillo Work Phone: [facility] Work Phone: Start: 06-21-2022 End: 06-21-[address] Melvin Trujillo Work Phone: [facility]-Cardiovascula r Services Start: 05-22-2022 Non-patient / Non-visit Dr. Marshal Trujillo Work Phone: [facility] Start: 05-22-2022 End: 05-22-2022 Admission to same day surgery center Dr. Melvin Trujillo Work Phone: [facility]/Special Procedures Start: 05-22-2022 End: 05-22-[address] Melvin Trujillo Work Phone: [facility] Work Phone: Start: 05-16-2022 End: 05-16-[address] Melvin Trujillo Work Phone: [facility] Work Phone: Start: 05-16-2022 End: 05-16-[address] Melvin Trujillo Work Phone: [facility]-Radiology, [facility] Start: 05-16-2022 End: 05-16-[address] Melvin Trujillo Work Phone: [facility] Start: 01-24-2022 End: 01-24-[address] Melvin Trujillo Work Phone: [facility]-Pulmonary Medicine [facility] Start: 12-04-2021 End: 12-04-[address] Melvin Trujillo Work Phone: [facility] Start: 11-28-2021 End: 11-28-[address] Melvin Trujillo Work Phone: [facility]-Cardiovascula r Services Start: 11-27-2021 End: 11-27-[address] Melvin Trujillo Work Phone: [facility] Start: 11-20-2021 End: 11-20-[address] Melvin Trujillo Work Phone: [facility]-Cat Scan, [facility] Start: 09-04-2021 End: 09-04-[address] Melvin Trujillo Work Phone: [facility]-Cardiovascula r Services Start: 08-21-2021 End: 08-21-[address] Melvin Trujillo Work Phone: [facility] Start: 07-27-2021 Non-patient / Non-visit Dr. Marshal Trujillo Work Phone: [facility] Start: 07-27-2021 Non-patient / Non-visit Dr. Marshal Trujillo Work Phone: [facility] Start: 07-26-2021 Non-patient / Non-visit Dr. Marshal Trujillo Work Phone: [facility] Start: 07-26-2021 End: 07-27-2021 Evaluation and management of inpatient Dr. Melvin Trujillo Work Phone: [facility]-Progressive Care Unit Start: 07-17-2020 End: 07-17-2020 Orders Only Ludy Jasmyne Mitchell Work Phone: [facility] Start: 07-20-2019 End: 07-24-2019 Patient encounter procedure TYSHAWN HAYDEN [facility] Start: 03-06-2019 End: 03-06-2019 Emergency department patient visit LUIS ENRIQUE LEONG [facility] Start: 03-06-2019 End: 03-06-2019 Emergency department patient visit Yariel Stewartganga Mercado Work Phone: [facility] Department Comment on above: Chest pain, unspecif ied type (Primary Dx) Start: 08-07-2018 End: 08-07-2018 Emergency department patient visit [facility] Start: 05-30-2017 End: 05-31-2017 Amb[facility] Start: 05-22-2017 End: 05-22-2017 Emergency department patient visit Carrillo Bernal Facility:[facility] Date Procedure Procedure Detail Performing [...] 11-26-[address] Melvin Robison [facility] Work Phone: Start: 11-06-2022 SURGICAL PATHOLOGY RESULTS Vinayak Bushra Grey DO Work Phone: Start: 11-06-2022 Colonoscopy stoma dx including collj spec spx Melvin Trujillo MD Work Phone: Start: 11-06-2022 Colonoscopy Vinayak liu DO Work Phone: Start: 05-16-2022 Plain chest X-ray Dr. Jackie Trujillo Work Phone: Start: 11-20-[address] Melvin Robison [facility] Work Phone: Start: 07-26-2021 Plain chest X-ray Dr. Jackie Trujillo Work Phone: Start: 03-08-2019 Electrocardiogram Provi jose Not In System Start: 03-06-2019 Troponin measurement Hu ssein Katalina Egal Work Phone: Start: 03-06-2019 Standard chest X-ray Hu ssein Katalina Egal Work Phone: Start: 03-06-2019 Basic metabolic 2000 panel - Serum or Plasma Luis Enrique Aktalina Egal Work Phone: Start: 03-06-2019 Complete blood [...] of coronary artery stent placement Chris Pineda [employer]SEM[employer]ER[employer]avon[employer] Comment on above: YTT-GSM-Qlal LCx w/ 2.5 x 8 mm Elunir [...] 11-06-2032 Screening for malignant neoplasm of colon [facility] Start: 02-07-2023 Influenza vaccination Influenza Vaccine (#1) [facility] Start: 07-27-2021 Patient discharge [facility] Work Phone: Start: 07-27-2021 Notification of physician [facility] Work Phone: Start: 07-27-2021 Patient education [facility] Work Phone: Start: 07-27-2021 Pulse taking [facility] Work Phone: Start: 07-27-2021 Taking patient vital signs [facility] Work Phone: Start: 07-27-2021 Wound care [facility] Work Phone: Start: 07-27-2021 [facility] Work Phone: Start: 07-26-2021 Medication not administered [facility] Work Phone: Start: 07-26-2021 End: 07-26-2021 [facility] Work Phone: Start: 07-26-2021 Following clinical pathway protocol [facility] Work Phone: Start: 07-26-2021 Assessment of risk of venous thromboembolism [facility] Work Phone: Start: 07-26-2021 End: 07-26-2021 Catheterization of vein [facility] Work Phone: Start: 07-26-2021 Incentive spirometry [facility] Work Phone: Start: 07-26-2021 Inhalation therapy procedure The [facility] Work Phone: Start: 07-26-2021 Insertion of catheter into peripheral vein [facility] Work Phone: Start: 07-26-2021 Measuring intake and output [facility] Work Phone: Start: 07-26-2021 Providing care according to standard [facility] Work Phone: Start: 07-26-2021 Provision of activity privileges [facility] Work Phone: Start: 07-26-2021 Referral to guitar repairer [facility] Work Phone: Start: 07-26-2021 Admission procedure [facility] Work Phone: Start: 02-08-2020 Influenza vaccination given Sequential Influenza Vaccine (#1) [facility] Start: 2019 Pneumococcal vaccination Pneumococcal Vaccine Age 65+ (1 of 2 - PCV13) [facility] Start: 02-07-2019 Influenza vaccination given SEQUENTIAL INFLUENZA VACCINE (#1) [facility] Start: 2004 Administration of herpes zoster vaccine Zoster Vaccines (1 of 2) [facility] Start: 2004 Screening for malignant neoplasm of colon [facility] Start: 2004 Zoster Vaccines (1 of 2) Zoster Vaccines (1 of 2) [facility] Start: 1976 DTaP/Tdap/Td Vaccines (1 - Tdap) DTaP/Tdap/Td Vaccines (1 - Tdap) [facility] Start: 1972 Hepatitis C antibody, confirmatory test Hepatitis C Screening [facility] Start: 1972 Hepatitis C screening Hepatitis C Screening [facility] Start: 1970 COVID-19 Vaccine (1 of 2) COVID-19 Vaccine (1 of 2) [facility] Start: 1966 Adolescent depression screening assessment Depression Screening (PHQ9) [facility] Start: 1960 Pneumococcal Vaccine: 65+ Years (1 - PCV) Pneumococcal Vaccine: 65+ Years (1 - PCV) [facility] Start: 1957 History and physical examination, annual for health maintenance Wellness Visit [facility] Start: 1954 COVID-19 Vaccine (#1) COVID-19 Vaccine (#1) [facility] Start: 1954 Fall risk assessment Falls Risk Assessment [facility] Start: 1954 Hepatitis C antibody, confirmatory test HEPATITIS C SCREENING [facility] Start: 1954 Lipid panel Lipid Panel [facility] Start: 1954 Prostate specific antigen measurement PSA Level [facility] Start: 1954 Screening for malignant neoplasm of colon [facility] Start: 1954 Tetanus vaccination [facility] Start: 1954 Yearly Adult Physical Yearly Adult Physical [facility] Catheterization of [facility] Work Phone: Catheterization of l [facility] Exercise tolerance test [facility] Work Phone: Measurement of respi ratory function [facility] Work Phone: Patient Education ED Chest Pain, Noncardiac [facility] Work Phone: Patient referral [facility] Work Phone: Payers Date Payer Category Payer Self-pay [id number] 2022 Unknown [id number] 2019 Medicare [id number] 2019 Medicare MEDICARE MEDICAR E PART A & B [id number] 2019-Present [place] [id number] 2014 Unknown [id number] 2011 Unknown [id number] 2011 Unknown MMO MEDICAL MUTU AL SUPERMED CLASSIC xxxxxxxxxxxx 2011-Present [id number] 2011 Unknown MMO MEDICAL MUTU AL SUPERMED CLASSIC [id number] 2011-Present [id number] 1954 Unknown [id number] 1954 Unknown [id number] 1954 Unknown [id number] 9 Unknown [id number] Unknown [id number] Unknown [id number] Unknown [id number] Social History Date Type Detail Facility Tobacco smoking status NHIS Unknown if ever smoked [facility] Start: 1955 Sex Assigned At Not on file [facility] Start: 08-21-2021 End: 10-04-2022 Tobacco smoking status NHIS Unknown if ever smoked [facility] Start: 08-26-2018 Cigarettes [facility] Start: 1955 Sex Assigned At Male [facility] Gender identity Not on file [facility] Start: 12-14-2024 Tobacco smoking status NHIS Smokes tobacco daily (finding) [facility] Medical Equipment Procedure Code Equipment Code Equipment [...] Assessment Result Facility 07-27-2021 Functional status Ambulates;Bedrest [facility] Work Phone: 07-27-2021 Functional status Assistive Devices None [facility] Work Phone: Mental Status Date Assessment Result Facility 07-27-2021 Cognitive function Voice/Name [facility] Work Phone: Clinical Notes 03-04-2019 to 12-14-2024 Note Date & Type Note Facility 12-14-2024 Evaluation note Diagnosis Onset Date Resolution Essential (primary) hypertension chronic December 14, 2024 10:20am History of coronary artery stent placement March 04, 2019 chronic December 14, 2024 10:20am Hyperlipidemia chronic December 14, 2024 10:20am Nicotine dependence chronic December 14, 2024 10:20am [facility] Work Phone: 1(899) 283-301905-31-2023 NotePatient Name: Jaron Mireles Procedure Date: 11/06/2022 2:21 PM Date of : 1955 Admit Type: Outpatient Site: [facility] Proc RM 1 Ethnicity: Not or Race: White Attending MD: Vinayak Edmonds DO, [id number] Procedure: Colonoscopy Indications: Surveillance: Personal history of colonic polyps (unknown histology) on last colonoscopy more than 5 years ago Providers: Vinayak Edmonds DO (Doctor), Damaris Ferrari RN (Nurse), Joel Sanchez, Geophysical Laboratory Supervisor Referring: Melvin Trujillo MD Medicines: Midazolam 7.5 [...] the patient. 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 Essential (primary) hypertension chronic Hyperlipidemia chronic History of coronary artery stent placement February 082018 resolved Fatigue acute Essential (primary) hypertension chronic Hyperlipidemia chronic History of coronary artery stent placement February 082018 resolved [facility] Work Phone: 1(958) 643-171309-26-2019 Evaluation note* Diagnosis Onset Date Resolution Status Nicotine dependence chronic Obstructive Sleep Apnea-Hypopnea Syndrome noneactive Chest pain acute Hyperlipidemia chronic History of coronary artery stent placement February 082018 resolved [facility] Work Phone: 1(228) 779-660309-26-2019 Evaluation note* Diagnosis Onset Date Resolution Status Chest pain acute Hyperlipidemia chronic History of coronary artery stent placement February 082018 resolved [facility] Work Phone: 1(206) 735-766609-26-2019 Evaluation note* Diagnosis Onset Date Resolution Status Essential (primary) hypertension chronic History of coronary artery stent placement February 082018 chronic Hyperlipidemia chronic [facility] Work Phone: 1([phone]) 650-485909-26-2019 Evaluation note* Diagnosis Onset Date Resolution Status Admit Date Essential (primary) hypertension chronic December 14, 2024 10:20am History of coronary artery stent placement March 04, 2019 chronic December 14, 025 10:20am Hyperlipidemia chronic December 14, 2024 10:20am Nicotine dependence chronic December 14, 2024 10:20am [facility] Work Phone: Evaluation note* Diagnosis Onset Date Resolution Status Chest pain acute 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 Essential (primary) hypertension chronic Hyperlipidemia chronic History of coronary artery stent placement February 082018 resolved [facility] Work Phone: Evaluation note* Diagnosis Encounter for screening for malignant neoplasm of colon Polyp of colon Benign neoplasm of colon Essential (primary) hypertension Unspecified essential hypertension Pure hypercholesterolemia, unspecified Benign prostatic hyperplasia without lower urinary tract symptoms Chronic obstructive pulmonary disease, unspecified (CMS/HCC) documented in this encounter [facility] Work Phone: Evaluation noteNo assessment information available [facility] Work Phone: Reason for referral (narrative)No reason for [facility] Work [facility]: Summary Purpose Family History No Family History Records Found Relationship Condition Age at Onset Recorded Date/T izaiah brother Cerebrovascular accident (CVA) Unknown Diabetes mellitus Unknown sister Diabetes mellitus Unknown Hypertension Unknown son Hypertension Unknown father Myocardial infarction 41 Advance Directives No Advanced Directives Records FoundDocuments on File Type Date Recorded 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 Expl anation Advance Directives and Livin g Will 03/06/2019 1:04 PM Advance Directive Response Recorded Date/ Time Advance Directives Yes March 12, 2019 9:06am Living Will Yes July 26, 2 022 8:54pm Power of Ecotherapist Yes July 26, 2021 8:54pm Advance Directive Response Recorded Date/ Time Name of Medical Power of Ecotherapist Kenzie Mireles - July 26, 2021 8:54pm Advance Directives Yes March 12, 2019 9:06am Living Will Yes July 26 8:54pm Power of Ecotherapist Yes July 26, 2021 8:54pm Advance Directive Response Recorded Date/ Time Advance Directives on File Yes Decem 2021 10:28am Name of Medical Power of Ecotherapist Claudia Mireles-w gurpreet May 22, 2022 10:28am Advance Directives Yes May 10:28am Living Will Yes May 22 10:28am Power of Ecotherapist Yes May 22, 2022 10:28am Advance Directive Response Recorded Date/ Time Advance Directives Yes May 11:28am Living Will Yes May 22 11:28am Power of Ecotherapist Yes May 22, 2022 11:28am Advance Directive Response Recorded Date/ Time Advance Directives Yes May 10:28am Living Will Yes May 22 10:28am Power of Ecotherapist Yes May 22, 2022 10:28am Advance Directive Response Recorded Date/ Time Living Will Yes May 22 11:28am Do you have a Healthcare Power of Ecotherapist? 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 Essential (primary) hypertension Hyperlipidemia History of coronary artery stent placement Chief Complaint CHEST PAIN CHEST PAIN CHEST PAIN CHEST PAIN CHEST PAIN 3wk fu CAD NICOTINE DEPENDENCE Reason for Visit Chest pain Atherosclerotic heart disease [place] coronary artery w/angina pectoris Essential (primary) hypertension Hyperlipidemia History of coronary artery stent placement Chief Complaint 3wk fu CAD NICOTINE DEPENDENCE 3 M FU Peripheral vascular disease, unspecified Reason for Visit Atherosclerotic hear t disease chitimacha coronary artery w/angina pectoris Essential (primary) hypertension [...] section and content) DATE CREATED AUTHOR 11/27/2017 [facility] DATE CREATED AUTHOR AUTHOR'S ORGANIZ ATION 12/02/2017 [facility] DATE CREATED AUTHOR AUTHOR'S ORGANIZ ATION 08/10/2018 [facility] DATE CREATED AUTHOR AUTHOR'S ORGANIZ ATION 07/24/2019 [facility] DATE CREATED AUTHOR AUTHOR'S ORGANIZ ATION 11/19/2022 [facility] DATE CREATED AUTHOR AUTHOR'S ORGANIZ ATION 11/19/2022 [facility] DATE CREATED AUTHOR AUTHOR'S ORGANIZ ATION 04/02/2025 [facility] Reason for Visit (unrecogniz ed section and [...] X3 ASA AT HOME. ED PROVIDER NOTE [facility] EMERGENCY [facility] NAME: Jaron Mireles AGE: 63 y.o. : 1955 VISIT DATE: 03/06/2019 CSN: [id number] PCP: Melvin Trujillo MD Chief Complaint Patient presents with Chest Pain Is a 63-year-old with known coronary artery disease who states he just had 2 stents placed at [facility] this week coming to the emergency room [...] file Gets together: Not on file Attends judaism service: Not on file Active member of [...] consult with his primary care physician or guitar repairer next week. The patient has been informed [...] Discontinue: Error Luis Enrique Hollis MD 03/06/19 [id number] Luis Enrique Hollis MD 03/06/19 [id number] Bed: 15 Expected date: 03/06/19 Expected time: [...] MD Primary Care Provider Active Chris Pineda FILTER ASSEMBLER, FILTER ASSEMBLER-C Attending Provider Active Team Status: Active Member Role Status Dates Dr. Melvin Trujillo MD Primary Care Provider Active Dr. Keith Azevedo MD Attending Provider Active Team Status: Inactive Member Role Status Dates Dr. Melvin Trujillo MD Primary Care Provider Active Chris Pineda FILTER ASSEMBLER, FILTER ASSEMBLER-C Attending Provider Active Team Status: Inactive Member [...] Provider, Referring P rovider Active Elsy Briceno FILTER ASSEMBLER, FILTER ASSEMBLER-C Active Chris H Roof FILTER ASSEMBLER, FILTER ASSEMBLER-C Attending Provider Active Team Status: Inactive Member Role Status Dates Dr. Melvin Trujillo MD Primary Care Provider Active Chris Pineda FILTER ASSEMBLER, FILTER ASSEMBLER-C Attending Provider, Referring Pro vider Active Team Status: Inactive Member Role Status Dates Dr. Melvin Trujillo MD Primary Care Provide r, Attending Provider, Referring Provider Active Chris Pineda FILTER ASSEMBLER, FILTER ASSEMBLER-C Other Provider Active Team Status: Inactive Member Role Status Dates Dr. Melvin Trujillo MD Primary Care Provider, Attending Florence quach Active Fabric Separator Operator Relationship Specialty Start Date End Date Melvin Trujillo MD [address] [place] [address] PCP - General 11/06/22 Team Status: Inactive [...] 2024 End: December 14, 2024 Chris Pineda FILTER ASSEMBLER, FILTER ASSEMBLER-C Attending Provider Active S tart: December 14, [...] 2024 End: December 14, 2024 Chris Pineda FILTER ASSEMBLER, FILTER ASSEMBLER-C Attending physician Active Start: December 14, 2024 [...] BE BASED ON THE PRIMARY CLINICAL RECORDS. [employer] [facility]. provides no warranty or guarantee of the accuracy or completeness of information in this document.
[2025-04-30] MEDS: 0.9% Normal Saline (1000mL) 1,000 ML 50 ML IV (23:49)
[2025-05-01] VITALS (17 sets, daily range): BP systolic 114–139; BP diastolic 55–75; PULSE 77–99; RESP 14–18; TEMP 36.3–37.2; O2SAT 93–97; BMI 21.9
[2025-05-01 04:51] LABS: Hematocrit 38.3 % (40-54); Hemoglobin 13.2 g/dL (13.0-16.5); Immature Granulocytes Count 0.060 X10^3/uL (0.0-0.0); Mean Corp Hgb Conc 34.5 g/dL (32-36); Mean Corpuscular Volume 95.8 fL (80-94); Mean Platelet Vol. 10.2 fl (6.2-12.0); NRBC Flagged by Analyzer 0 % (0-5); Platelet Count 208 K/mm3 (150-450); RBC Distribution Width CV 12.8 % (11.6-14.6); RBC Distribution Width SD 44.8 fl (35.1-43.9); Red Blood Count 4.00 M/mm3 (4.6-6.2); White Blood Count 11.8 K/mm3 (4.4-11.0)
[2025-05-01 05:12] LABS: Anion Gap 9 (5-15); BUN 16 mg/dL (4-19); BUN/Creat Ratio 17.1 RATIO (10-20); Calcium,Total 8.6 mg/dL (7.6-11.0); Carbon Dioxide 24.8 mmol/L (21.0-32.0); Chloride 108 mmol/L (98-108); Estimated Creatinine Clearance 84.07 ml/min (50-250); Glucose 90 mg/dL (70-99); Potassium 3.8 mmol/L (3.3-5.1)
[2025-05-01] MEDS: Fluticasone 0.05% 1 SPRAY NASAL.SRY 2 SPRAY NASAL (05:18)
--- NOTE | 2025-05-01 06:00 | EKG12_ITS ---
Test Reason : PRE OP Blood Pressure : */* mmHG Vent. Rate : 82 BPM Atrial Rate : 82 BPM P-R Int : 168 ms QRS Dur : 82 ms QT Int : 366 ms P-R-T Axes : 77 75 97 degrees QTcB Int : 427 ms Normal sinus rhythm Nonspecific ST abnormality Abnormal ECG When compared with ECG of 27-Jul-2021 04:52, No significant change was found Confirmed by JEAN TABARES, OMAYRA ([id number]), video news editor MALLIKA ATKINSON ([id number]) on 05/03/2025 10:28:07 AM Referred By: ARELY Confirmed By: OMAYRA PENA MD
--- NOTE | 2025-05-01 09:05 | PCM.PRE.AN2 ---
ASA Classification* ASA Classification ASA Classification: 3 and E Assessment & Plan Anesthesia* Anesthesia Assessment Anesthesia Assessment: Discussed sedation and/or anesthesia options, risks, benefits, and alternatives with patient/parents/legal guardian/POA. Questions invited. The patient/parents/legal guardian/POA seems to understand and agrees to proceed with anesthesia plan. Reviewed the physical assessment, medical history, allergy history and patient home medications list prior to surgery/procedure/anesthetic and documented any changes. Performed airway and anesthesia risk assessments. Anesthesia Type Anesthesia Type: General History Source History Obtained from:: Patient and Chart Anesthesia Focused Assessment* Temperature: 98.2 F Pulse Rate: 84 Blood Pressure: 124/74 Respiratory Rate: 16 Pulse Ox: 96 Airway Assessment Mouth opens: >3 cm Mallampati Score: II Neck Range of motion (ROM): Full ROM Labs Anesthesia Preop lab: CBC WBC, (4.4-11.0) 11.8 K/mm3 H Today, 04:37 RBC, (4.6-6.2) 4.00 M/mm3 L Today, 04:37 Hgb, (13.0-16.5) 13.2 g/dL Today, 04:37 Hct, (40-54) 38.3 % L Today, 04:37 Plt Count, (150-450) 208 K/mm3 Today, 04:37 CHEMISTRY Potassium, (3.3-5.1) 3.8 mmol/L Today, 04:37 Sodium, (133-145) 142 mmol/L Today, 04:37 Magnesium, (1.6-2.6) 2.3 mg/dL 01/21/23, 14:53 Phosphorus, (2.5-4.9) 2.9 mg/dL 01/21/23, 14:53 BUN, (4-19) 16 mg/dL Today, 04:37 Creatinine, (0.70-1.20) 0.91 mg/dL Today, 04:37 Glucose, (70-99) 90 mg/dL Today, 04:37 TSH, (0.358-3.74) 2.18 uIU/mL 01/21/23, 14:53 COAG PT, (11.7-14.9) 13.1 SECONDS 08/07/18, 00:55 Pre-Assessment Diagnosis/Proposed Procedure Planned Operative Procedure(s): Laser for possible bladder stones possible TURP for BPH with bleeding Anesthesia History Anesthesia History - community affairs manager: Anesthesia History - community affairs manager Hx Hospitalization No 03/12/19 09:06 Any Problems With Anesthesia No 04/30/25 23:39 Cholinesterase deficiency No 04/30/25 23:39 You/Your Family Experience No 04/30/25 23:39 fever (hyperthermia) with Relationship Recent Exposure to Contagious No 04/30/25 23:39 Disease Does patient have nerve No 04/30/25 23:39 stimulator Patient instructed to have device shut off --Does patient have Pacemaker or ICD? When Was Last Pacemaker Check QUESTION #4 FULL TEXT: You/Your Family Experience fever (hyperthermia) with Anesthesia Last Oral Intake Last Oral intake: Last Oral Intake NPO since Meds taken in AM with sips of water? Meds patient instructed to take am of surgery PONV PONV - community affairs manager: PONV - community affairs manager Female HX of Motion Sickness HX of N/V After Surgery Non-Smoker Duration of Surgery greater than 60 minutes Number of Risk Factors PONV Score Height & Weight Height & Weight: Anesthesia: Height & Weight Height 6 ft 3 in 04/30/25 20:19 Weight: 79.832 kg 04/30/25 20:19 Body Mass Index (BMI) 21.9 04/30/25 20:19 Respiratory Assessment Respiratory Assessment - community affairs manager: Respiratory Tract Infection Hx - community affairs manager Hx Respiratory Tract Infection No 04/30/25 23:39 STOP Sleep Apnea STOP Sleep Apnea - community affairs manager: STOP Sleep Apnea - community affairs manager Hx Hypertension Yes 04/30/25 20:19 Hx Sleep Apnea No 04/30/25 20:19 CPAP No 04/30/25 20:19 BIPAP Do you snore loudly (louder No 04/30/25 20:19 than talking or can be heard Do you often feel tired/ No 04/30/25 20:19 fatigued/ sleepy during daytime? Has anyone observed you stop No 04/30/25 20:19 breathing during sleep? STOP Results Negative 04/30/25 20:19 QUESTION #5 FULL TEXT : Do you snore loudly (louder than talking or can be heard through closed doors)? 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 Specify any problems Hx of Preganancy in last 3 N/A 04/30/25 20:19 Months Nurse Filling Out Transfusion TMELLOR 04/30/25 20:19 & Questions: Date: 04/30/25 04/30/25 20:19 Time: 20:04/30/25 20:19 Patient unable to answer at this time (ie. confused, unrespo /Reproduction History /Reproductive History - community affairs manager: /Reproductive Hx- community affairs manager Hx Now Gestational Age (in weeks): EDC: Hx Hx Para Hx Section SAB Does the father of the baby or his family experience fever w Father of the baby Malignant Hypertension history comment Active Medications Active Medications: Current Medications Generic Name Dose Route Start Last Admin Trade Name Freq PRN Reason Stop Dose Admin Acetaminophen 500 mg 04/30/25 22:07 Acetaminophen 500 Mg Tablet PO Q4H PRN PRN Pain 1-10 or Fever Ascorbic Acid 1,000 mg 05/01/25 10:00 Ascorbic Acid 500 Mg Tablet PO DAILY [facility] Atorvastatin Calcium 40 mg 05/01/25 22:00 Atorvastatin Calcium 40 Mg Tablet PO QHS [facility] Calcium Carbonate 500 mg 05/01/25 08:00 [facility]cium [facility]ate [facility] Cholecalciferol 50 mcg 05/01/25 10:00 Cholecalciferol (Vit D3) 25 Mcg Tablet (1,000 Units) PO DAILY [facility] Fluticasone Propionate 2 spray 05/01/25 10:00 05/01/25 05:18 Fluticasone 0.05% 1 [place] Nasal.Sry NASAL 2 spray DAILY [facility] Administration Sodium Chloride 250 mls @ 15 mls/hr 04/30/25 20:23 IV .[id number] PRN Saline Flush Sodium Chloride 1,000 mls @ 50 mls/hr 04/30/25 23:40 04/30/25 23:49 IV 50 mls/hr .Q20H [facility] Administration Lisinopril 5 mg 05/01/25 10:00 Lisinopril 5 Mg Tablet PO DAILY [facility] Protocol Metoprolol Succinate 25 mg 05/01/25 10:00 Metoprolol(Xl)Succ 25 Mg Tablet PO DAILY [facility] Protocol Multivitamins 1 cap 05/01/25 10:00 Vitamin B Comp W-C Capsule PO DAILY [facility] Nitroglycerin 0.4 mg 05/01/25 00:39 Nitroglycerin (Inpatient Use) 0.4 Mg Tab.Subl SL Q5M PRN chest pain Pantoprazole Sodium 40 mg 05/01/25 10:00 Pantoprazole Sodium 40 Mg Tablet PO BID [facility] Sodium Chloride 10 - 40 ml 04/30/25 20:23 0.9% Saline Lock 10 Ml Syringe IV UD PRN SALINE FLUSH Tamsulosin HCl 0.4 mg 05/01/25 10:00 Tamsulosin Hcl 0.4 Mg Capsule PO DAILY [facility] Zinc Sulfate 50 mg 05/01/25 10:00 Zinc Sulfate 50 Mg Zinc (220 Mg) Oral Capsule PO DAILY [facility] PFSH Medical History Essential (primary) hypertension Elevated blood pressure reading in office without diagnosis of hypertension Nicotine dependence GERD (gastroesophageal reflux disease) Hyperlipidemia COPD (chronic obstructive pulmonary disease) Atherosclerotic heart disease [place] coronary artery w/angina pectoris Home Medications ?Medication ?Instructions ?Recorded ?Last Taken ?Type nitroglycerin 0.4 mg sublingual 0.4 mg sublingual Q5-15M PRN HEART 04/16/19 Unknown History tablet tamsulosin 0.4 mg capsule 0.4 mg PO DAILY URINE 10/19/19 Unknown History ascorbic acid (vitamin C) 1,000 mg 1 g PO DAILY REPLACEMENT 05/16/20 Unknown History tablet zinc acetate 50 mg (zinc) capsule 50 mg PO DAILY REPLACEMEN 05/16/20 Unknown History fluticasone propionate 50 2 spray intranasal DAILY ALLERGIES 05/15/21 Unknown History mcg/actuation nasal spray,suspension calcium carbonate (Tums Ultra) 400 mg PO DAILY CALCIUM 05/16/22 Unknown History cholecalciferol (vitamin D3) 50 50 mcg PO DAILY BONES 05/16/22 Unknown History mcg (2,000 unit) tablet omeprazole 40 mg capsule,delayed 40 mg PO DAILY STOMACH 05/16/22 Unknown History release lisinopril 5 mg tablet 5 mg PO DAILY BLOOD PRESSURE 05/21/22 05/22/22 History atorvastatin 40 mg tablet 40 mg PO QHS CHOLESTEROL #90 tabs 10/01/23 Unknown Rx metoprolol succinate 25 mg 25 mg PO DAILY BLOOD PRESS #90 tabs 09/21/24 Unknown Rx tablet,extended release 24 hr (Toprol XL) vitamin B complex 1 tab PO DAILY REPLACEMENT 12/14/24 Unknown History Allergy/AdvReac Type Severity Reaction Status Date / Time No Known Allergies Allergy Verified 04/30/25 15:09 Family History Brother CVA (cerebral vascular accident) Diabetes Brother CVA (cerebral vascular accident) Diabetes Sister Diabetes Hypertension Son Hypertension Father , age 63 Myocardial infarction, Onset Age: 41 Surgical History History of coronary artery stent placement (03/04/19) History of left heart catheterization (05/22/22) Social History household members: spouse housing: house Smoking Status: Current every day smoker tobacco type: cigarettes Tobacco: How many years used: 45 quit status: considering quitting alcohol intake: never substance use type: does not use caffeine: Yes Type: coffee Number of servings: 4 Review of Systems (Anesthesia) ROS Narrative System reviewed and no additional complaints, except as documented.
--- NOTE | 2025-05-01 09:06 | PCM.HP.STD ---
HPI - General General Date of Admission: 04/30/25 Date of Service: 04/30/25 Chief Complaint: Gross hematuria HPI Narrative JARON MIRELES, is a 70-year-old male who called me yesterday with gross hematuria and bleeding no real pain he does have a history of kidney stones he is wonder if he had a stone ventrally the bleeding got worse so he went to the emergency room they called me on CAT scan he has several calcifications within the prostate and bladder but not really sure if these are causing the bleeding I suspect more prostate issue, they put a three-way catheter and is irrigated out now is fairly clear plan to take him to surgery today for diagnostic look removal of the stones with the laser and possible TURP of the prostate [facility] Medical History Essential (primary) hypertension Elevated blood pressure reading in office without diagnosis of hypertension Nicotine dependence GERD (gastroesophageal reflux disease) Hyperlipidemia COPD (chronic obstructive pulmonary disease) Atherosclerotic heart disease [place] coronary artery w/angina pectoris Home Medications ?Medication ?Instructions ?Recorded ?Last Taken ?Type nitroglycerin 0.4 mg sublingual 0.4 mg sublingual Q5-15M PRN HEART 04/16/19 Unknown History tablet tamsulosin 0.4 mg capsule 0.4 mg PO DAILY URINE 10/19/19 Unknown History ascorbic acid (vitamin C) 1,000 mg 1 g PO DAILY REPLACEMENT 05/16/20 Unknown History tablet zinc acetate 50 mg (zinc) capsule 50 mg PO DAILY REPLACEMEN 05/16/20 Unknown History fluticasone propionate 50 2 spray intranasal DAILY ALLERGIES 05/15/21 Unknown History mcg/actuation nasal spray,suspension calcium carbonate (Tums Ultra) 400 mg PO DAILY CALCIUM 05/16/22 Unknown History cholecalciferol (vitamin D3) 50 50 mcg PO DAILY BONES 05/16/22 Unknown History mcg (2,000 unit) tablet omeprazole 40 mg capsule,delayed 40 mg PO DAILY STOMACH 05/16/22 Unknown History release lisinopril 5 mg tablet 5 mg PO DAILY BLOOD PRESSURE 05/21/22 05/22/22 History atorvastatin 40 mg tablet 40 mg PO QHS CHOLESTEROL #90 tabs 10/01/23 Unknown Rx metoprolol succinate 25 mg 25 mg PO DAILY BLOOD PRESS #90 tabs 09/21/24 Unknown Rx tablet,extended release 24 hr (Toprol XL) vitamin B complex 1 tab PO DAILY REPLACEMENT 12/14/24 Unknown History Allergy/AdvReac Type Severity Reaction Status Date / Time No Known Allergies Allergy Verified 04/30/25 15:09 Family History Brother CVA (cerebral vascular accident) Diabetes Brother CVA (cerebral vascular accident) Diabetes Sister Diabetes Hypertension Son Hypertension Father , age 63 Myocardial infarction, Onset Age: 41 Surgical History History of coronary artery stent placement (03/04/19) History of left heart catheterization (05/22/22) Social History household members: spouse housing: house Smoking Status: Current every day smoker tobacco type: cigarettes Tobacco: How many years used: 45 quit status: considering quitting alcohol intake: never substance use type: does not use caffeine: Yes Type: coffee Number of servings: 4 ROS Constitutional Constitutional: Denies chills, fever(s) or malaise Eyes Eyes: Denies blurry vision or change in vision ENT HEENT: Reports none Cardiovascular Cardiovascular: Denies chest pain or palpitations Respiratory/Chest Respiratory/Chest: Denies cough or shortness of breath with exertion Gastrointestinal Gastrointestinal: Denies abdominal pain, constipation or diarrhea Musculoskeletal Musculoskeletal: Denies back pain, joint stiffness or joint swelling Integumentary Integumentary: Denies dry skin, jaundice, lesions or rash Neurologic Neurologic: Denies confusion, syncope or weakness Psychiatric Psychiatric: Reports none; Denies anxiety or depression Endocrine Endocrinology: Denies excessive sweating, fatigue or flushing Hematologic/Lymphatic Hematologic/Lymphatic: Denies anemia, easy bleeding or easy bruising Vital Signs Vital Signs Vital Signs: 04/30/25 15:06 04/30/25 16:09 04/30/25 17:00 Temperature 97.8 F 98 F 98.3 F Temperature Source Temporal Oral Oral Pulse Rate 78 88 73 Respiratory Rate 16 16 18 Respiratory Effort Respiratory Depth Respiratory Pattern Blood Pressure 147/84 H 128/70 H 140/72 H Blood Pressure Mean 105 89 94 Blood Pressure Source Blood Pressure Position Blood Pressure Location Pulse Ox 98 99 96 Oxygen Delivery Method Room Air Room Air Room Air 04/30/25 18:00 04/30/25 18:00 04/30/25 19:00 Temperature 97.3 F L 98.1 F Temperature Source Temporal Oral Pulse Rate 70 71 81 Respiratory Rate 14 18 16 Respiratory Effort Respiratory Depth Respiratory Pattern Blood Pressure 128/64 H 128/64 H 121/58 H Blood Pressure Mean 85 85 79 Blood Pressure Source Blood Pressure Position Blood Pressure Location Pulse Ox 100 100 99 Oxygen Delivery Method Room Air Room Air Room Air 04/30/25 19:26 04/30/25 20:51 04/30/25 20:58 Temperature 98.8 F 98.5 F Temperature Source Oral Pulse Rate 83 85 Respiratory Rate 16 16 Respiratory Effort Normal Non-Labored Respiratory Depth Normal Respiratory Pattern Normal Blood Pressure 138/73 H 133/69 H Blood Pressure Mean 94 90 Blood Pressure Source Monitor Blood Pressure Position Semi-Fowlers Blood Pressure Location Right Arm Pulse Ox 100 97 Oxygen Delivery Method Room Air Room Air 05/01/25 05:12 05/01/25 07:38 05/01/25 07:39 Temperature 98 F 98.2 F Temperature Source Oral Oral Pulse Rate 93 84 Respiratory Rate 18 16 Respiratory Effort Normal Non-Labored Respiratory Depth Respiratory Pattern Blood Pressure 121/75 H 124/74 H Blood Pressure Mean 90 90 Blood Pressure Source Monitor Monitor Blood Pressure Position Semi-Fowlers Sitting Blood Pressure Location Left Arm Left Arm Pulse Ox 97 96 Oxygen Delivery Method Room Air Room Air Room Air Weight Weight: 79.832 kg Body Mass Index (BMI) 21.9 Physical Exam Const alert and oriented x3 General Appearance: cooperative HEENT normocephalic and head/scalp atraumatic Eyes PERRL and EOMs intact bilaterally Neck supple, no JVD and no carotid bruits Resp normal respiratory effort, normal air movement and clear to auscultation bilaterally Cardio regular rate and no murmurs GI normal to inspection, nondistended, normoactive bowel sounds and soft to palpation Extremity normal capillary refill General Extremity: no tenderness to palpation of joints or extremities; Negative for edema Skin no rashes or lesions noted and no wounds General Skin Exam: no breakdown Neuro CN's II-XII intact bilaterally Psych affect normal Appearance: appropriate Results Lab / Micro Data 05/01/25 04:37 05/01/25 04:37 Labs: Laboratory Results - last 24 hr 04/30/25 16:00: WBC 11.1 H, RBC 4.39 L, Hgb 14.4, Hct 41.4, MCV 94.3 H, MCH 32.8 H, MCHC 34.8, RDW Std Deviation 43.6, RDW Coeff of Vita 12.5, Plt Count 240, MPV 10.4, Immature Gran % (Auto) 0.500, Neut % (Auto) 68.2, Lymph % (Auto) 19.7, [place] % (Auto) 8.1, Eos % (Auto) 2.9, Baso % (Auto) 0.6, Absolute Neuts (auto) 7.6, Absolute Lymphs (auto) 2.18, Nucleated RBC % 0, Sodium 140, Potassium 4.2, Chloride 104, Carbon Dioxide 28.4, Anion Gap 8, BUN 22 H, Creatinine 1.08, Estim Creat Clear Calc 72.05, Est GFR (MDRD) Non-Af 73, BUN/Creatinine Ratio 20.1 H, Glucose 119 H, Calcium 9.0 04/30/25 16:16: Urine Color ABARHAN, Urine Clarity Turbid, Urine pH 7.0, Ur Specific [place] 1.015, Urine Protein 500 H, Urine Glucose (UA) Normal, Urine Ketones Negative, Urine Occult Blood 250 H, Urine Nitrite Negative, Urine Bilirubin Negative, Urine Urobilinogen Normal, Ur Leukocyte Esterase 25 H, Urine RBC > 100 SEEN, Urine WBC 25-50 SEEN, Ur Squamous Epith Cells 0-5 SEEN, Urine Bacteria 2+, Urine Mucus RARE 05/01/25 04:37: WBC 11.8 H, RBC 4.00 L, Hgb 13.2, Hct 38.3 L, MCV 95.8 H, MCH 33.0 H, MCHC 34.5, RDW Std Deviation 44.8 H, RDW Coeff of Vita 12.8, Plt Count 208, MPV 10.2, Immature Gran % (Auto) 0.500, Neut % (Auto) 74.8 H, Lymph % (Auto) 14.1 L, Archer % (Auto) 8.1, Eos % (Auto) 2.1, Baso % (Auto) 0.4, Absolute Neuts (auto) 8.8 H, Absolute Lymphs (auto) 1.66, Nucleated RBC % 0, Sodium 142, Potassium 3.8, Chloride 108, Carbon Dioxide 24.8, Anion Gap 9, BUN 16, Creatinine 0.91, Estim Creat Clear Calc 84.07, Est GFR (MDRD) Non-Af 90, BUN/Creatinine Ratio 17.1, Glucose 90, Calcium 8.6 Imaging Radiology Impression Abdomen/Pelvis CT 04/30/25 16:10 IMPRESSION: Radiodensity measuring approximately 7 mm possibly located within the bladder with an additional similar-appearing 9 mm calculus. Punctate left-sided nonobstructing renal calculi. Prostatomegaly. Correlate for malignancy. Other chronic findings as above including hepatomegaly. [facility] Assessment & Plan Assessment/Plan (1) Kidney stone: (2) UTI (urinary tract infection): (3) Hematuria: PLAN: Plan Plan to proceed with surgery for cystoscopy diagnostic, laser of stones, and TURP
[2025-05-01] MEDS: fentaNYL 100 MCG/2 ML Ampul IV (09:31)
[2025-05-01] MEDS: Lidocaine 1% (5 ml sdv) 5 ML Vial IV (09:32)
[2025-05-01] MEDS: Cefazolin 1 GM/5 ML Vial 2 GM IV (09:42)
--- NOTE | 2025-05-01 10:14 | OP.PCM_ITS ---
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: No Type of Anesthesia: General RN Documented Start/Stop Times: Operation Date: 05/01/25 09:10 Case Time Anesthesia Start 05/01/25 09:24 Into Room 05/01/25 09:24 Procedure Start 05/01/25 09:47 Procedure Start Time: :47 Procedure Stop Time: 10:15 Select all DRAINS/GRAFTS/IMPLANTS that apply: None Estimated Blood Loss: Minimal Specimen collected: No Description of surgery: Patient was taken back to the operating room after induction of anesthesia he was placed upon on the operating room table was then placed in the dorsolithotomy position the penis testicles were prepped and draped in usual fashion went into the bladder with a 21 K[place] rigid cystourethroscope I dilated the meatus to allow for cystoscopy and then after went in the prostate was quite large with trilobar hypertrophy active bleeding from the bladder neck he had a very large stone in the bladder I then used and changed over to the continuous- flow cystoscope with the laser bridge and then I lasered the stone little tiny pieces got all the pieces out I then switched to the cauterization button Olympus bipolar button and then I cauterized the bladder neck to stop the bleeding from the bladder neck. I then was inspecting and I saw blood coming from the right ureteral orifice so I put wire up on the right side went up with the flexible ureteroscope over the wire got up to the kidney inspected I had some blood clots in the kidney but no tumors or stones seen within the kidney then worked my way down the ureter no tumors or stones seen along the course of the ureter I think the blood was coming from the right kidney is just of the refluxing blood from the bladder. Cystoscope was removed anesthesia was reversed and if he does okay today and is able to urinate he will go home today without a catheter. Surgical Findings: Stone removed from the bladder prostate was very large and obstructive bleeding from the bladder neck this was cauterized to stop the bleeding, right ureteroscopy was done for blood coming from the right ureteral orifice clear no tumors or stones seen in the right side just some blood clots probably reflux. Complications Complications: No Admit VTE Documentation VTE Present on Admission: No VTE Mechan Device Prophylaxis: SCD's
--- NOTE | 2025-05-01 10:36 | PCM.POST.ANE ---
Anesthesia: Postop Eval I Current Vital Signs Temperature: 97.3 F Pulse Rate: 88 Blood Pressure: 127/66 Respiratory Rate: 16 Pulse Ox: 97 Oxygen Delivery Method: Room Air Assessment Airway patent: Yes Spontaneous unlabored respirations: Yes Mental status: Awake and Calm nausea: No Vomiting: No Anesthesia Complication: No Fluid Hydration Crystalloid volume administer (ml): 900 Total IV fluid infused: 900 Progress Note Post-operative progress note: Doing very well in PACU. Breathing spontaneously. Stating that he is comfortable and has no pain. Anesthesia document: Postop Eval 1 completed: Yes
--- NOTE | 2025-05-01 10:47 | PCM.POSTANE2 ---
Anesthesia Postop Eval I Sum Postop Eval Completion status Anesthesia document: Postop Eval 1 completed: Yes Anesthesia Postop Eval I Summary Anesthesia Postop Eval I Summary: Anesthesia Postop Eval I: Assessment Summary Airway patent Yes 05/01/25 10:37 Spontaneous unlabored Yes 05/01/25 10:37 respirations Mental status Awake,Calm 05/01/25 10:37 nausea No 05/01/25 10:37 Vomiting No 05/01/25 10:37 Anesthesia Postop Eval I: Fluid Summary Crystalloid volume administer 900 05/01/25 10:37 (ml) Colloids volume administered ( ml) Blood Product volume administered (ml) Total IV fluid infused 900 05/01/25 10:37 Anesthesia Postop Eval I: Summary Notes Anesthesia Complication No 05/01/25 10:37 Anesthesia Complication Comment: Post-operative progress note Doing very well in 05/01/25 10:37 PACU. Breathing spontaneously. Stating that he is comfortable and has no pain. Anesthesia: Postop Eval II Evaluation Mental status: Awake and Calm Pain Level: 0 nausea: No Vomiting: No Progress Note Post-operative progress note: Comfortable in PACU. Denies any complaints. Complications Anesthesia Complication: No
[2025-05-01] MEDS: 0.9% Normal Saline (1000mL) 1,000 ML 50 ML IV ×2 (10:51→13:30)
[2025-05-01] MEDS: Zinc Sulfate 50 mg zinc (220 mg) ORAL capsule PO (11:30)
[2025-05-01] MEDS: Metoprolol(XL)Succ 25 MG Tablet PO (11:30)
[2025-05-01] MEDS: Cholecalciferol (VIT D3) 25 MCG TABLET (1,000 UNITS) 50 MCG PO (11:31)
[2025-05-01] MEDS: Vitamin B Comp W-C Capsule 1 CAP PO (11:32)
[2025-05-02 03:21] VITALS: BP 103/62; PULSE 63; RESP 16; TEMP 36.8; O2SAT 97
[2025-05-02 06:31] VITALS: BP 132/87; PULSE 68; RESP 15; TEMP 36.8; O2SAT 99
--- NOTE | 2025-05-02 07:24 | DS.PCM_ITS ---
Providers Date of Admission: 04/30/25 Date of Discharge: 05/02/25 Primary Care Physician: Dr. Bi Trujillo MD Reason For Visit: GROSS HEMATURIA Diagnosis Discharge Diagnosis (1) Kidney stone: Status: Acute Code(s): N20.0 - Calculus of kidney (2) UTI (urinary tract infection): Status: Acute Code(s): N39.0 - Urinary tract infection, site not specified (3) Hematuria: Status: Acute Code(s): R31.9 - Hematuria, unspecified Plan Plan to proceed with surgery for cystoscopy diagnostic, laser of stones, and TURP Medications at Discharge Home Medications nitroglycerin 0.4 mg sublingual tablet 0.4 mg sublingual Q5-15M PRN HEART 04/16/19 tamsulosin 0.4 mg capsule 0.4 mg PO DAILY URINE 10/19/19 ascorbic acid (vitamin C) 1,000 mg tablet 1 g PO DAILY REPLACEMENT 05/16/20 zinc acetate 50 mg (zinc) capsule 50 mg PO DAILY REPLACEMEN 05/16/20 fluticasone propionate 50 mcg/actuation nasal spray,suspension 2 spray intranasal DAILY ALLERGIES 05/15/21 calcium carbonate (Tums Ultra) 400 mg PO DAILY CALCIUM 05/16/22 cholecalciferol (vitamin D3) 50 mcg (2,000 unit) tablet 50 mcg PO DAILY BONES 05/16/22 omeprazole 40 mg capsule,delayed release 40 mg PO DAILY STOMACH 05/16/22 lisinopril 5 mg tablet 5 mg PO DAILY BLOOD PRESSURE 05/21/22 atorvastatin 40 mg tablet 40 mg PO QHS CHOLESTEROL #90 tabs 10/01/23 metoprolol succinate 25 mg tablet,extended release 24 hr (Toprol XL) 25 mg PO DAILY BLOOD PRESS #90 tabs 09/21/24 vitamin B complex 1 tab PO DAILY REPLACEMENT 12/14/24 ciprofloxacin HCl 500 mg tablet (Cipro) 500 mg PO BID #14 tabs 05/01/25 Hospital Course Operations - (laser of bladder stone Cauterization of prostate) Physical Exam Const alert and oriented x3 General Appearance: cooperative HEENT normocephalic and head/scalp atraumatic Eyes PERRL and EOMs intact bilaterally Neck supple, no JVD and no carotid bruits Resp normal respiratory effort, normal air movement and clear to auscultation bilaterally Cardio regular rate and no murmurs GI normal to inspection, nondistended, normoactive bowel sounds and soft to palpation Extremity normal capillary refill General Extremity: no tenderness to palpation of joints or extremities; Negative for edema Skin no rashes or lesions noted and no wounds General Skin Exam: no breakdown Neuro CN's II-XII intact bilaterally Psych affect normal Appearance: appropriate Weight / BMI Weight Weight: 79.832 kg Body Mass Index (BMI) 21.9 ABG / Lab / Microbiology Data 05/01/25 04:37 05/01/25 04:37 D/C Instructions Call your doctor if you observe: Fever of 101 or Higher Catheter: Morales to leg bag and Morales to large bag Drain: [place] Additional Dressing/Incision Instructions: home w leg bag DC O2, CPAP, BIPAP Needs Home O2 Discharge instructions: No Please Follow Up With: Hilario Valladares MD When: Call [phone] for an appointment Meaningful Use Info Meaningful Use Meaningful Use Diagnoses (Choose all that apply): None applicable Discharge Plan Admission Admit Date/Time: 04/30/25 22:13 Attending Provider: Hilario Valladares Primary Care Provider: Bi Trujillo Discharge Orders/Prescriptions Prescriptions: New ciprofloxacin HCl [Cipro] 500 mg tablet 500 mg PO BID Qty: 14 0RF Continued tamsulosin 0.4 mg capsule 0.4 mg PO DAILY nitroglycerin 0.4 mg tablet, sublingual 0.4 mg SUBLINGUAL Q5-15M PRN (Reason: HEART) Rx Instructions: TOTAL 3 DOSES IN 15 MIN ascorbic acid (vitamin C) 1,000 mg tablet 1 g PO DAILY zinc acetate 50 mg (zinc) capsule 50 mg PO DAILY Rx Instructions: swallow whole; do not chew/break/dissolve/open fluticasone propionate 50 mcg/actuation spray,suspension 2 spray intranasal DAILY omeprazole 40 mg capsule,delayed release(DR/EC) 40 mg PO DAILY cholecalciferol (vitamin D3) 50 mcg (2,000 unit) tablet 50 mcg PO DAILY vitamin B complex Tablet 1 tab PO DAILY calcium carbonate [Tums Ultra] 400 mg calcium (1,000 mg) tablet,chewable 400 mg PO DAILY lisinopril 5 mg tablet 5 mg PO DAILY atorvastatin 40 mg tablet 40 mg PO QHS Qty: 90 3RF metoprolol succinate [Toprol XL] 25 mg tablet extended release 24 hr 25 mg PO DAILY Qty: 90 3RF Referrals / Follow Up: Bi Trujillo MD [Primary Care Provider, Family Practice] Hilario Valladares MD [Med Staff - Active Staff, Urology] Disposition Disposition (needs filled in before D/C Order can be placed): Home, Self Care
--- NOTE | 2025-05-02 07:24 | PCM.DC ---
Discharge Instructions DC O2, CPAP, BIPAP needs Home O2 Discharge instructions: No Dressing / Incision Discharge Activity: Return to Normal Activity and May Not Drive (while taking narcotic pain medications.) Dressing / Incision Call your doctor if you observe: Fever of 101 or Higher Catheter: Morales to leg bag and Morales to large bag Drain: [place] Additional Dressing/Incision Instructions:: home w leg bag Follow Up Care Please Follow Up With: Hilario Valladares MD When: Call [phone] for an appointment Test Results: Test results from this visit will be discussed in further detail at your follow-up appointment, if applicable. Discharge Plan Admission Admit Date/Time: 04/30/25 22:13 Attending Provider: Hilario Valladares Primary Care Provider: Bi Trujillo Discharge Orders/Prescriptions Prescriptions: New ciprofloxacin HCl [Cipro] 500 mg tablet 500 mg PO BID Qty: 14 0RF Continued tamsulosin 0.4 mg capsule 0.4 mg PO DAILY nitroglycerin 0.4 mg tablet, sublingual 0.4 mg SUBLINGUAL Q5-15M PRN (Reason: HEART) Rx Instructions: TOTAL 3 DOSES IN 15 MIN ascorbic acid (vitamin C) 1,000 mg tablet 1 g PO DAILY zinc acetate 50 mg (zinc) capsule 50 mg PO DAILY Rx Instructions: swallow whole; do not chew/break/dissolve/open fluticasone propionate 50 mcg/actuation spray,suspension 2 spray intranasal DAILY omeprazole 40 mg capsule,delayed release(DR/EC) 40 mg PO DAILY cholecalciferol (vitamin D3) 50 mcg (2,000 unit) tablet 50 mcg PO DAILY vitamin B complex Tablet 1 tab PO DAILY calcium carbonate [Tums Ultra] 400 mg calcium (1,000 mg) tablet,chewable 400 mg PO DAILY lisinopril 5 mg tablet 5 mg PO DAILY atorvastatin 40 mg tablet 40 mg PO QHS Qty: 90 3RF metoprolol succinate [Toprol XL] 25 mg tablet extended release 24 hr 25 mg PO DAILY Qty: 90 3RF Referrals / Follow Up: Bi Trujillo MD [Primary Care Provider, Family Practice] Hilario Valladares MD [Med Staff - Active Staff, Urology] Disposition Disposition (needs filled in before D/C Order can be placed): Home, Self Care
[2025-05-02] MEDS: Fluticasone 0.05% 1 SPRAY NASAL.SRY 2 SPRAY NASAL (09:12)
[2025-05-02 09:13] VITALS: BP 132/80; PULSE 64
[2025-05-02] MEDS: Metoprolol(XL)Succ 25 MG Tablet PO (09:13)
[2025-05-02] MEDS: Cholecalciferol (VIT D3) 25 MCG TABLET (1,000 UNITS) 50 MCG PO (09:13)
--- NOTE | 2025-05-02 09:13 | CASEMGMT ---
Addendum entered by Greta Weiner 05/02/25 09:16: Dx:gross hematuria LACE:2 6-Clicks:24 Medical record reviewed and patient evaluated for identification of discharge planning needs. Based on this review, at this time criteria are not present to indicate a need for discharge planning. Will remain available to assist with discharge planning needs as identified or requested. Original Note: RN CM into pt room, pt and nurse present at bedside. Pt seen ambulating halls indep. Pt denies any homegoing needs. Pt states that he has not had a catheter at home before. Pt nurse ready to perform teaching. Pt is aware that if he does not feel comfortable with catheter after teaching, he can notify the RN CM.
[2025-05-02] MEDS: Vitamin B Comp W-C Capsule 1 CAP PO (09:14)
[2025-05-02] MEDS: Zinc Sulfate 50 mg zinc (220 mg) ORAL capsule PO (09:15)
--- NOTE | 2025-05-02 09:40 | PHA.DC.MC.R ---
Pharmacy [facility] Counseling Pharmacy Service has performed discharge medication reconciliation and counseling for this patient. 1. CIPROFLOXACIN 500MG PO BID X 7 DAYS The patient's discharge medication list was reviewed for discrepancies and discrepancies were resolved. The patient was counseled on the following discharge medications and changes in medications for homegoing were reviewed. The Reason for Use, instructions for use, and potential side effects were reviewed for all new medications. The patient's questions regarding all of their medications were answered. The patient was able to verbally demonstrate an understanding of their discharge medications. Medications at Discharge Home Medications nitroglycerin 0.4 mg sublingual tablet 0.4 mg sublingual Q5-15M PRN HEART 04/16/19 tamsulosin 0.4 mg capsule 0.4 mg PO DAILY URINE 10/19/19 ascorbic acid (vitamin C) 1,000 mg tablet 1 g PO DAILY REPLACEMENT 05/16/20 zinc acetate 50 mg (zinc) capsule 50 mg PO DAILY REPLACEMEN 05/16/20 fluticasone propionate 50 mcg/actuation nasal spray,suspension 2 spray intranasal DAILY ALLERGIES 05/15/21 calcium carbonate (Tums Ultra) 400 mg PO DAILY CALCIUM 05/16/22 cholecalciferol (vitamin D3) 50 mcg (2,000 unit) tablet 50 mcg PO DAILY BONES 05/16/22 omeprazole 40 mg capsule,delayed release 40 mg PO DAILY STOMACH 05/16/22 lisinopril 5 mg tablet 5 mg PO DAILY BLOOD PRESSURE 05/21/22 atorvastatin 40 mg tablet 40 mg PO QHS CHOLESTEROL #90 tabs 10/01/23 metoprolol succinate 25 mg tablet,extended release 24 hr (Toprol XL) 25 mg PO DAILY BLOOD PRESS #90 tabs 09/21/24 vitamin B complex 1 tab PO DAILY REPLACEMENT 12/14/24 ciprofloxacin HCl 500 mg tablet (Cipro) 500 mg PO BID #14 tabs 05/01/25
[2025-05-02 09:41] VITALS: BP 133/71; PULSE 88; RESP 16; TEMP 37.1; O2SAT 95
== END 2025-05-02 09:42 | disposition home or self-care (01) | DRG 663 ==
LOC: ED 19:15 → MS3 22:40
PROVIDERS: Admitting Provider Urology; Emergency Provider Emergency Medicine; PCP Family Medicine; Visit Provider Urology
PROC: 0W3R8ZZ Control Bleeding in Genitourinary Tract, Via Natural or Artificial Opening Endoscopic (ICD-10-PCS; principal; 2025-05-01 09:00)
DX: N21.0 Calculus in bladder (principal); N13.8 Other obstructive and reflux uropathy; N39.0 Urinary tract infection, site not specified; J44.9 Chronic obstructive pulmonary disease, unspecified; I10 Essential (primary) hypertension; E78.5 Hyperlipidemia, unspecified; F17.210 Nicotine dependence, cigarettes, uncomplicated; K21.9 Gastro-esophageal reflux disease without esophagitis; I25.10 Atherosclerotic heart disease of native coronary artery without angina pectoris; N40.1 Benign prostatic hyperplasia with lower urinary tract symptoms; Z79.899 Other long term (current) drug therapy; Z95.5 Presence of coronary angioplasty implant and graft
CPT/HCPCS: 36415; 74176; 80048; 81001; 85025; 87040; 87086; 87088; 93005; 99284; A4216; C1769; J2405

== ENCOUNTER 2025-05-06 12:11 | Observation (INO) | payer MEDICARE, BC, SELFPAY ==
--- NOTE | 2025-05-04 10:30 | PAT.ANESEVAL ---
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 When Was Last Pacemaker Check QUESTION #4 FULL TEXT: You/Your Family Experience fever (hyperthermia) with Anesthesia Last Oral Intake Last Oral intake: Last Oral Intake NPO since Meds taken in AM with sips of water? 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 Female No 05/04/25 08:43 HX of Motion Sickness No 05/04/25 08:43 HX of N/V After Surgery No 05/04/25 08:43 Non-Smoker No 05/04/25 08:43 Duration of Surgery greater Yes 05/04/25 08:43 than 60 minutes Number of Risk Factors 1 05/04/25 08:43 PONV Score Low Risk 05/04/25 08:43 Height & Weight Height & Weight: Anesthesia: Height & Weight Height 6 ft 3 in 05/01/25 08:55 Respiratory Assessment Respiratory Assessment - aircraft life support fitter: Respiratory Tract Infection Hx - 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 Has anyone observed you stop No 05/04/25 08:43 breathing during sleep? STOP Results Negative 05/04/25 08:43 QUESTION #5 FULL TEXT : Do you snore loudly (louder than talking or can be heard through closed doors)? 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 Specify any problems Hx of Preganancy in last 3 N/A 05/04/25 08:43 Months Nurse Filling Out Transfusion NBUCHER 05/04/25 08:43 & Questions: Date: 05/04/25 05/04/25 08:43 Time: 08:46 05/04/25 08:43 Patient unable to answer at this time (ie. confused, unrespo /Reproduction History /Reproductive History - aircraft life support fitter: /Reproductive Hx- aircraft life support fitter Hx Now No 05/04/25 08:43 Gestational Age (in weeks): EDC: Hx Hx Para Hx Section SAB No 05/04/25 08:43 Does the father of the baby or his family experience fever w Father of the baby Malignant Hypertension history comment Active Medications Active Medications: Current Medications Generic Name Dose Route Start Last Admin Trade Name Freq PRN Reason Stop Dose Admin Cefazolin Sodium 2 gm/ Sodium 110 mls @ 200 mls/hr 05/06/25 10:15 Chloride IV 05/06/25 10:47 INTRAOP ONE PFS Medical History (Updated 05/04/25 @ 08:54 by Naheed Elmore) Wears glasses ADHD Anxiety High cholesterol Prostate disease Smoker History of echocardiogram History of stress test Hypertension Cardiology follow-up encounter Essential (primary) hypertension Elevated blood pressure reading in office without diagnosis of hypertension Nicotine dependence GERD (gastroesophageal reflux disease) Hyperlipidemia COPD (chronic obstructive pulmonary disease) Atherosclerotic heart disease [place] coronary artery w/angina pectoris Home Medications ?Medication ?Instructions ?Recorded ?Last Taken ?Type nitroglycerin 0.4 mg sublingual 0.4 mg sublingual Q5-15M PRN HEART 04/16/19 Unknown History tablet tamsulosin 0.4 mg capsule 0.4 mg PO DAILY URINE 10/19/19 Unknown History ascorbic acid (vitamin C) 1,000 mg 1 g PO DAILY REPLACEMENT 05/16/20 Unknown History tablet zinc acetate 50 mg (zinc) capsule 50 mg PO DAILY REPLACEMEN 05/16/20 Unknown History fluticasone propionate 50 2 spray intranasal DAILY ALLERGIES 05/15/21 Unknown History mcg/actuation nasal spray,suspension calcium carbonate (Tums Ultra) 400 mg PO DAILY PRN CALCIUM 05/16/22 Unknown History cholecalciferol (vitamin D3) 50 50 mcg PO DAILY BONES 05/16/22 Unknown History mcg (2,000 unit) tablet omeprazole 40 mg capsule,delayed 40 mg PO DAILY STOMACH 05/16/22 Unknown History release lisinopril 5 mg tablet 5 mg PO DAILY BLOOD PRESSURE 05/21/22 05/22/22 History atorvastatin 40 mg tablet 40 mg PO QHS CHOLESTEROL #90 tabs 10/01/23 Unknown Rx metoprolol succinate 25 mg 25 mg PO DAILY BLOOD PRESS #90 tabs 09/21/24 Unknown Rx tablet,extended release 24 hr (Toprol XL) vitamin B complex 1 tab PO DAILY REPLACEMENT 12/14/24 Unknown History ciprofloxacin HCl 500 mg tablet 500 mg PO BID #14 tabs 05/01/25 Unknown Rx (Cipro) ranolazine 500 mg tablet,extended 500 mg PO BID 05/04/25 Unknown History release,12 hr Allergy/AdvReac Type Severity Reaction Status Date / Time No Known Allergies Allergy Verified 05/04/25 08:40 Family History Brother CVA (cerebral vascular accident) Diabetes Brother CVA (cerebral vascular accident) Diabetes Sister Diabetes Hypertension Son Hypertension Father , age 63 Myocardial infarction, Onset Age: 41 Surgical History (Updated 05/04/25 @ 08:54 by Naheed Elmore) History of esophagogastroduodenoscopy (EGD) History of colonoscopy History of cholecystectomy History of extracorporeal shockwave lithotripsy (ESWL) History of coronary artery stent placement (03/04/19) History of left heart catheterization (05/22/22) Social History household members: spouse housing: house Smoking Status: Current every day smoker tobacco type: cigarettes Tobacco: How many years used: 45 quit status: considering quitting alcohol intake: never substance use type: does not use caffeine: Yes Type: coffee Number of servings: 4 Audit: Pertinent Findings HISTORY of Pertinent Findings History of Pertinent Findings: As per cards: 69-year-old gentleman who presents here today for a cardiovascular outpatient follow-up. He has coronary artery disease with stenting to his LAD and circumflex on March 04, 2019. He also has a history of hyperlipidemia and tobacco abuse. He underwent repeat cardiac catheterization March of the same year and his stents were noted to be patent with preserved ejection fraction and no wall motion abnormalities noted. He states he was having chest discomfort and indigestion and presented to the emergency room in 07/2021 and underwent a cardiac catheterization which demonstrated 40% stenosis in his Circumflex OM 2, and 50 to 60% stenosis in his distal RCA. He under repeat catheterization in May 2022 that showed moderated RCA disease. Pertinent Findings EKG Perinent findings: Normal sinus rhythm Nonspecific ST abnormality Abnormal ECG When compared with ECG of 27-Jul-2021 04:52, No significant change was found Confirmed by OMAYRA PENA MD ([id number]), manager editorial MALLIKA ATKINSON ([id number]) on 05/03/2025 10:28:07 AM Echo (EF%) pertinent findings: Echocardiogram from 06/21/2022: Interpretation Summary Normal LV size. Left ventricular systolic function is normal. The estimated ejection fraction is 55 %. Stage 1 diastolic dysfunction. Contrast injection was performed. Heart catheterization pertinent findings: Heart catheterization from 05/27/2022: CONCLUSIONS Moderate CAD of RCA and preserved LV Patient also noted to have a calcified nodule on the left ventricle or pericardium. Would recommend CT for evaluation of this. CORONARY ANGIOGRAPHY DOMINANCE: Right Dominant LEFT HEART ASSESSMENT Left Ventricular Ejection Fraction: by LV Gram 60 % Normal LV wall motion Normal Left Ventricular systolic function LEFT MAIN: Mild calcification, Mild luminal irregularities LEFT ANTERIOR DESCENDING ARTERY: Mild luminal irregularities less than 30% CIRCUMFLEX ARTERY: Mild luminal irregularities less than 30% RIGHT CORONARY ARTERY: Moderate luminal irregularities up to 50% Additional pertinent findings: Carotid duplex ultrasound from 09/04/2021: Interpretation Summary Mild (<50%) stenosis right extracranial internal carotid. Mild (<50%) stenosis left extracranial internal carotid. Flow within the vertebral arteries is antegrade bilaterally. Recommendation Anesthesia Recommendation Anesthesia recommendation: OPTIMIZED for anesthesia
[2025-05-06] VITALS (14 sets, daily range): BP systolic 121–149; BP diastolic 64–91; PULSE 64–88; RESP 13–20; TEMP 36.1–36.7; O2SAT 96–100; BMI 22.0
[2025-05-06] MEDS: Lactated Ringers 1,000 ML 15 ML IV (08:15)
--- NOTE | 2025-05-06 08:38 | PRE.ANES_ITS ---
ASA Classification* ASA Classification ASA Classification: 2 Assessment & Plan Anesthesia* Anesthesia Assessment Anesthesia Assessment: Discussed sedation and/or anesthesia options, risks, benefits, and alternatives with patient/parents/legal guardian/POA. Questions invited. The patient/parents/legal guardian/POA seems to understand and agrees to proceed with anesthesia plan. Reviewed the physical assessment, medical history, allergy history and patient home medications list prior to surgery/procedure/anesthetic and documented any changes. Performed airway and anesthesia risk assessments. Anesthesia Type Anesthesia Type: General Anesthesia Focused Assessment* Temperature: 97.4 F Pulse Rate: 64 Blood Pressure: 149/73 Respiratory Rate: 17 Pulse Ox: 100 Airway Assessment Mouth opens: >3 cm Mallampati Score: II Labs Anesthesia Preop lab: CBC WBC, (4.4-11.0) 11.8 K/mm3 H 05/01/25, 04:37 RBC, (4.6-6.2) 4.00 M/mm3 L 05/01/25, 04:37 Hgb, (13.0-16.5) 13.2 g/dL 05/01/25, 04:37 Hct, (40-54) 38.3 % L 05/01/25, 04:37 Plt Count, (150-450) 208 K/mm3 05/01/25, 04:37 CHEMISTRY Potassium, (3.3-5.1) 3.8 mmol/L 05/01/25, 04:37 Sodium, (133-145) 142 mmol/L 05/01/25, 04:37 Magnesium, (1.6-2.6) 2.3 mg/dL 01/21/23, 14:53 Phosphorus, (2.5-4.9) 2.9 mg/dL 01/21/23, 14:53 BUN, (4-19) 16 mg/dL 05/01/25, 04:37 Creatinine, (0.70-1.20) 0.91 mg/dL 05/01/25, 04:37 Glucose, (70-99) 90 mg/dL 05/01/25, 04:37 TSH, (0.358-3.74) 2.18 uIU/mL 01/21/23, 14:53 COAG PT, (11.7-14.9) 13.1 SECONDS 08/07/18, 00:55 Pre-Assessment Diagnosis/Proposed Procedure Planned Operative Procedure(s): (N/A) Cysto,Transurethral Resection Prostate Anesthesia History 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 When Was Last Pacemaker Check QUESTION #4 FULL TEXT: You/Your Family Experience fever (hyperthermia) with Anesthesia Last Oral Intake Last Oral intake: Last Oral Intake NPO since 05:45 05/06/25 08:16 Meds taken in AM with sips of Yes 05/06/25 08:16 water? Meds patient instructed to see med list 05/06/25 08:16 take am of surgery PONV PONV - field logistics coordinator: PONV - field logistics coordinator Female No 05/04/25 08:43 HX of Motion Sickness No 05/04/25 08:43 HX of N/V After Surgery No 05/04/25 08:43 Non-Smoker No 05/04/25 08:43 Duration of Surgery greater Yes 05/04/25 08:43 than 60 minutes Number of Risk Factors 1 05/04/25 08:43 PONV Score Low Risk 05/04/25 08:43 Height & Weight Height & Weight: Anesthesia: Height & Weight Height 6 ft 3 in 05/06/25 08:16 Weight: 80 kg 05/06/25 08:16 Body Mass Index (BMI) 22.0 05/06/25 08:16 Respiratory Assessment Respiratory Assessment - field logistics coordinator: Respiratory Tract Infection Hx - field logistics coordinator Hx Respiratory Tract Infection No 05/04/25 08:43 STOP Sleep Apnea STOP Sleep Apnea - field logistics coordinator: STOP Sleep Apnea - field logistics coordinator Hx Hypertension Yes: CONTROLLED 05/04/25 08:43 Hx Sleep Apnea No 05/04/25 08:43 CPAP No 05/04/25 08:43 BIPAP Do you snore loudly (louder No 05/04/25 08:43 than talking or can be heard Do you often feel tired/ No 05/04/25 08:43 fatigued/ sleepy during daytime? Has anyone observed you stop No 05/04/25 08:43 breathing during sleep? STOP Results Negative 05/04/25 08:43 QUESTION #5 FULL TEXT : Do you snore loudly (louder than talking or can be heard through closed doors)? Tobacco Use History Tobacco Use History - field logistics coordinator: Tobacco Use History - field logistics coordinator Tobacco Use Smoking Status Current every day smoker 05/04/25 08:43 Hx Tobacco Use Yes 05/04/25 08:43 Years Smoking Packs Smoked per Day 1 05/04/25 08:43 Smoking Cessation Date was within the last 15 years Hx Smoking Cessation Date Hx Smoking Cessation No 05/04/25 08:43 Counseling Hematologic Medial History Hematologic Hx - field logistics coordinator: Hematologic Medical Hx - clinical documentation nurse Hx of Blood Transfusion No 05/04/25 08:43 Hx of Transfusion in last 3 No 05/04/25 08:43 Months Date of Last Transfusion (if within last 3 months) Ever experience any problems No 05/04/25 08:43 with transfusion(s)? Specify any problems Hx of Preganancy in last 3 N/A 05/04/25 08:43 Months Nurse Filling Out Transfusion NBUCHER 05/04/25 08:43 & Questions: Date: 05/04/25 05/04/25 08:43 Time: 08:46 05/04/25 08:43 Patient unable to answer at this time (ie. confused, unrespo /Reproduction History /Reproductive History - field logistics coordinator: /Reproductive Hx- field logistics coordinator Hx Now No 05/04/25 08:43 Gestational Age (in weeks): EDC: Hx Hx Para Hx Section SAB No 05/04/25 08:43 Does the father of the baby or his family experience fever w Father of the baby Malignant Hypertension history comment Active Medications Active Medications: Current Medications Generic Name Dose Route Start Last Admin Trade Name Freq PRN Reason Stop Dose Admin Cefazolin Sodium 2 gm/ Sodium 110 mls @ 200 mls/hr 05/06/25 10:15 Chloride IV 05/06/25 10:47 INTRAOP ONE Lactated Ringer's 1,000 mls @ 15 mls/hr 05/06/25 08:00 05/06/25 08:15 IV 15 mls/hr .Q48H BALBIR Administration PFSH Medical History Wears glasses ADHD Anxiety High cholesterol Prostate disease Smoker History of echocardiogram History of stress test Hypertension Cardiology follow-up encounter Essential (primary) hypertension Elevated blood pressure reading in office without diagnosis of hypertension Nicotine dependence GERD (gastroesophageal reflux disease) Hyperlipidemia COPD (chronic obstructive pulmonary disease) Atherosclerotic heart disease [place] coronary artery w/angina pectoris Home Medications ?Medication ?Instructions ?Recorded ?Last Taken ?Type nitroglycerin 0.4 mg sublingual 0.4 mg sublingual Q5-1 5M PRN HEART 04/16/19 Unknown History tablet tamsulosin 0.4 mg capsule 0.4 mg PO DAILY URINE 05/05/25 History ascorbic acid (vitamin C) 1,000 mg 1 g PO DAILY REPLAC EMENT 05/16/20 05/05/25 History tablet zinc acetate 50 mg (zinc) capsule 50 mg PO DAILY REPLA CEMEN 05/16/20 05/05/25 History fluticasone propionate 50 2 spray intranasal DAILY ALL ERGIES 05/15/21 05/05/25 History mcg/actuation nasal spray,suspension calcium carbonate (Tums Ultra) 400 mg PO DAILY PRN BENJI CIUM 05/16/22 05/05/25 History cholecalciferol (vitamin D3) 50 50 mcg PO DAILY BONES 05/16/22 05/05/25 History mcg (2,000 unit) tablet omeprazole 40 mg capsule,delayed 40 mg PO DAILY STOMAC H 05/16/22 05/06/25 History release lisinopril 5 mg tablet 5 mg PO DAILY BLOOD PRESSURE 05/21/22 05/06/25 History atorvastatin 40 mg tablet 40 mg PO QHS CHOLESTEROL #90 tabs 10/01/23 05/05/25 Rx metoprolol succinate 25 mg 25 mg PO DAILY BLOOD PRESS #90 tabs 09/21/24 05/06/25 Rx tablet,extended release 24 hr (Toprol XL) vitamin B complex 1 tab PO DAILY REPLACEMENT 0 12/14/24 05/05/25 History ciprofloxacin HCl 500 mg tablet 500 mg PO BID #14 tabs 05/01/25 05/05/25 Rx (Cipro) ranolazine 500 mg tablet,extended 500 mg PO BID 05/06/25 History release,12 hr Allergy/AdvReac Type Severity Reaction Status Date / Time No Known Allergies Allergy Verified 05/06/25 08:14 Family History Brother CVA (cerebral vascular accident) Diabetes Brother CVA (cerebral vascular accident) Diabetes Sister Diabetes Hypertension Son Hypertension Father , age 63 Myocardial infarction, Onset Age: 41 Surgical History History of esophagogastroduodenoscopy (EGD) History of colonoscopy History of cholecystectomy History of extracorporeal shockwave lithotripsy (ESWL) History of coronary artery stent placement (03/04/19) History of left heart catheterization (05/22/22) Social History household members: spouse housing: house Smoking Status: Current every day smoker tobacco type: cigarettes Tobacco: How many years used: 45 quit status: considering quitting alcohol intake: never substance use type: does not use caffeine: Yes Type: coffee Number of servings: 4 Review of Systems (Anesthesia) ROS Narrative System reviewed and no additional complaints, except as documented.
[2025-05-06] MEDS: Midazolam 2 MG/2 ML Syringe IV (10:50)
[2025-05-06] MEDS: Lactated Ringers 1,000 ML 1000 ML IV (10:50)
[2025-05-06] MEDS: Cefazolin 1 GM/5 ML Vial 2 GM IV (10:51)
[2025-05-06] MEDS: fentaNYL 100 MCG/2 ML Ampul IV (10:55)
[2025-05-06] MEDS: Lidocaine 1% (5 ml sdv) 5 ML Vial IV (10:55)
--- NOTE | 2025-05-06 12:14 | PCM.DC ---
Discharge Instructions DC O2, CPAP, BIPAP needs Home O2 Discharge instructions: No Dressing / Incision Discharge Activity: Return to Normal Activity and May Not Drive (while taking narcotic pain medications.) Dressing / Incision Call your doctor if you observe: Fever of 101 or Higher Follow Up Care Please Follow Up With: Hilario Valladares MD When: Call [phone] for an appointment Test Results: Test results from this visit will be discussed in further detail at your follow-up appointment, if applicable. Discharge Plan Admission Primary Reason for Your Visit: turp Attending Provider: Hilario Valladares Primary Care Provider: Bi Trujillo Instructions Print Language: [place]ian Discharge Orders/Prescriptions Prescriptions: Continued tamsulosin 0.4 mg capsule 0.4 mg PO DAILY nitroglycerin 0.4 mg tablet, sublingual 0.4 mg SUBLINGUAL Q5-15M PRN (Reason: HEART) Rx Instructions: TOTAL 3 DOSES IN 15 MIN ascorbic acid (vitamin C) 1,000 mg tablet 1 g PO DAILY zinc acetate 50 mg (zinc) capsule 50 mg PO DAILY Rx Instructions: swallow whole; do not chew/break/dissolve/open fluticasone propionate 50 mcg/actuation spray,suspension 2 spray intranasal DAILY omeprazole 40 mg capsule,delayed release(DR/EC) 40 mg PO DAILY cholecalciferol (vitamin D3) 50 mcg (2,000 unit) tablet 50 mcg PO DAILY vitamin B complex Tablet 1 tab PO DAILY calcium carbonate [Tums Ultra] 400 mg calcium (1,000 mg) tablet,chewable 400 mg PO DAILY PRN (Reason: CALCIUM) lisinopril 5 mg tablet 5 mg PO DAILY ciprofloxacin HCl [Cipro] 500 mg tablet 500 mg PO BID Qty: 14 0RF ranolazine 500 mg tablet extended release 12 hr 500 mg PO BID atorvastatin 40 mg tablet 40 mg PO QHS Qty: 90 3RF metoprolol succinate [Toprol XL] 25 mg tablet extended release 24 hr 25 mg PO DAILY Qty: 90 3RF Referrals / Follow Up: Bi Trujillo MD [Primary Care Provider, Family Practice] Hilario Valladares MD [Med Staff - Active Staff, Urology] Disposition Disposition (needs filled in before D/C Order can be placed): Home, Self Care
--- NOTE | 2025-05-06 12:14 | PCM.OPRPT ---
Operative Report (Standard) Operative Information Date of Procedure: 05/06/25 Pre-Operative Diagnosis: BPH with obstruction and small bladder stones Post-Operative Diagnosis: The same Surgery/Procedure Performed: Transurethral resection of the prostate and laser bladder stones casserole preparer: No Type of Anesthesia: General RN Documented Start/Stop Times: Operation Date: 05/06/25 10:15 Case Time Into Pre-Op 05/06/25 07:54 Out of Pre-Op 05/06/25 10:47 Anesthesia Start 05/06/25 10:50 Into Room 05/06/25 10:50 Procedure Start 05/06/25 11:06 Procedure End 05/06/25 12:08 Anesthesia End 05/06/25 12:13 Out of Room 05/06/25 12:13 Procedure Start Time: : Procedure Stop Time: 12:15 Select all DRAINS/GRAFTS/IMPLANTS that apply: Drains Drain details: [address] Estimated Blood Loss: 10cc Specimen collected: No Description of surgery: In the preoperative setting I discussed with the patient how the surgery would be done with expect afterwards. We discussed how a prostate resection is done and we discussed the risk of the surgery including, bleeding, infection, retrograde ejaculation, changes with ejaculation or intercourse,. We discussed the possibility that the resection of the prostate may not alleviate his urinary symptoms. We discussed the small risk of developing scar tissue along the urethral channel and strictures. We also discussed the chance of the prostate could grow back and he may need further surgery or treatment in the future for prostate problems. The urethra and genitals were prepped and draped in usual sterile fashion. Went into the bladder using a 24 [place] cystoscope. We used the laser bridge through the scope for continuous irrigation. Then using the laser bridge we introduced a laser fiber into the bladder and the stone in the bladder was trapped against the back wall. The stone measured < 1 cm in size. The stone was then lasered using laser lithotripsy the small little pieces all the pieces were evacuated on the bladder. After all the stones were removed then the scope was removed there was minimal bleeding. Then went into the bladder using the visual obturator with a resectoscope. Once inside the bladder identified the right and left ureteral orifice. I then identified the prostate and the anatomy of the prostate. I marked out the area of the sphincter and the verumontanum was identified. I then proceeded with the prostate resection first resected the median lobe. And then resected the right lobe of the prostate. Then to resect the left lobe of the prostate. I then resected the apical tissue of the prostate. This was a complete resection of all obstructive tissue to improve voiding and relieve obstruction. I then made sure that there was no injury to the sphincter or the verumontanum was still intact. At the end of the resection all the chips were [place] out of the bladder. I then identified the left and right ureteral orifice and these were confirmed to be in good position and effluxing and not injured. The resectoscope was removed, a 22 [place] catheter was placed into the bladder on continuous irrigation. And the urine was fairly light pink color and draining normally. He was taken back to the PACU in good condition. Surgical Findings: Prostate resected with the button and laser bladder stones Complications Complications: No Admit VTE Documentation VTE Present on Admission: No VTE Mechan Device Prophylaxis: SCD's VTE Pharm Prophylaxis ordered?: No
--- NOTE | 2025-05-06 12:20 | PCM.POST.ANE ---
Anesthesia: Postop Eval I Current Vital Signs Temperature: 97.0 F Pulse Rate: 73 Blood Pressure: 141/76 Respiratory Rate: 20 Pulse Ox: 97 Oxygen Delivery Method: Room Air Assessment Airway patent: Yes Spontaneous unlabored respirations: Yes Mental status: Awake and Calm nausea: No Vomiting: No Anesthesia Complication: No Fluid Hydration Crystalloid volume administer (ml): 900 Total IV fluid infused: 900 Progress Note Anesthesia document: Postop Eval 1 completed: Yes
--- NOTE | 2025-05-06 12:28 | POSTOPAN2_ITS ---
Anesthesia Postop Eval I Sum Postop Eval Completion status Anesthesia document: Postop Eval 1 completed: Yes Anesthesia Postop Eval I Summary Anesthesia Postop Eval I Summary: Anesthesia Postop Eval I: Assessment Summary Airway patent Yes 05/06/25 12:21 TINNER [email or web address] Spontaneous unlabored Yes 05/06/25 12:21 TINNER [email or web address] respirations Mental status Awake,Calm 05/06/25 12:21 TINNER [email or web address] nausea No 05/06/25 12:21 TINNER [email or web address] Vomiting No 05/06/25 12:21 TINNER [email or web address] Anesthesia Postop Eval I: Fluid Summary Crystalloid volume administer 900 05/06/25 12:21 TINNER [email or web address] (ml) Colloids volume administered ( ml) Blood Product volume administered (ml) Total IV fluid infused 900 05/06/25 12:21 TINNER [email or web address] Anesthesia Postop Eval I: Summary Notes Anesthesia Complication No 05/06/25 12:21 TINNER [email or web address] Anesthesia Complication Comment: Post-operative progress note Anesthesia: Postop Eval II Evaluation Mental status: Awake Pain Level: 1 nausea: No Vomiting: No
--- NOTE | 2025-05-06 12:28 | PCM.POSTANE2 ---
Anesthesia Postop Eval I Sum Postop Eval Completion status Anesthesia document: Postop Eval 1 completed: Yes Anesthesia Postop Eval I Summary Anesthesia Postop Eval I Summary: Anesthesia Postop Eval I: Assessment Summary Airway patent Yes 05/06/25 12:21 BARREL ASSEMBLY [email or web address] Spontaneous unlabored Yes 05/06/25 12:21 BARREL ASSEMBLY [email or web address].[email or web address] respirations Mental status Awake,Calm 05/06/25 12:21 BARREL ASSEMBLY [email or web address] nausea No 05/06/25 12:21 BARREL ASSEMBLY [email or web address].[email or web address] Vomiting No 05/06/25 12:21 BARREL ASSEMBLY [email or web address] Anesthesia Postop Eval I: Fluid Summary Crystalloid volume administer 900 05/06/25 12:21 BARREL ASSEMBLY [email or web address] (ml) Colloids volume administered ( ml) Blood Product volume administered (ml) Total IV fluid infused 900 05/06/25 12:21 BARREL ASSEMBLY [email or web address] Anesthesia Postop Eval I: Summary Notes Anesthesia Complication No 05/06/25 12:21 BARREL ASSEMBLY [email or web address] Anesthesia Complication Comment: Post-operative progress note Anesthesia: Postop Eval II Evaluation Mental status: Awake Pain Level: 1 nausea: No Vomiting: No
[2025-05-06] MEDS: 0.9% Normal Saline (1000mL) 1,000 ML 125 ML IV ×3 (12:48→21:45)
--- OUTSIDE RECORDS SUMMARY | 2025-05-06 13:30 | XMS RPT_ITS | CCD ---
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 Melvin Trujillo Referring Provider Wynne PRECONSTRUCTION MANAGER, PRECONSTRUCTION MANAGER-C [place] Attending Provider Dr. Keith Azevedo Attending Provider Roof PRECONSTRUCTION MANAGER, PRECONSTRUCTION MANAGER-C Chris Bradley Attending Provider Dr. Melvin Trujillo Primary Care Provider Dr. Melvin Trujillo Referring Provider Dr. Melvin Trujillo Primary Care Provider Dr. Keith Azevedo Attending Provider Roof PRECONSTRUCTION MANAGER, PRECONSTRUCTION MANAGER-C Chris Bradley Attending Provider Dr. Melvin Trujillo Referring Provider Dr. Vinayak Edmonds Attending Unavailable Dr. Melvin Trujillo Primary Care Unavailable Dr. Melvin Trujillo Referring Unavailable Dr. Vinayak Edmonds Admitting Unavailable Dr. Melvin Trujillo Primary Care Provider Edwin PRECONSTRUCTION MANAGER, PRECONSTRUCTION MANAGER-C Chris Bradley Attending Provider Melvin Trujillo MD Primary Care Provider Dr. Melvin Trujillo MD Primary Care Provider Dr. Melvin Trujillo MD Referring Provider Edwin PRECONSTRUCTION MANAGER-CChris Attending Provider Dr. Melvin Trujillo MD Primary Care Physician Edwin PRECONSTRUCTION MANAGER-C, Chris Bradley Attending Physician Blaine TABARES, Dr. Hilario Garcia Attending Physician Blaine TABARES, Dr. Hilario Garcia Referring Provider [phone] [facility] PRECONSTRUCTION MANAGER-CKade Attending Physician Alidaorrow PRECONSTRUCTION MANAGER-CKade Referring Provider Melvin Trujillo Primary Care Unavailable Alidaorrow PRECONSTRUCTION MANAGERKade Attending Unavailable [facility] Kade ROMANO Referring Unavailable Melvin Trujillo Primary [...] nasa l route three times daily Ipratropium [place] Active 2 SPRAY INTRANASAL THREE TIMES A [...] sources) Start: 05-16-2020 take 1 capsule by [facility] once daily Completed/Discontinued Medications Medication Drug Class(es) [...] 9:34am Start: 08-26-2018 End: 02-26-2019 Famotidine-Ca Carb-Mag [place] x Discontinued 1 - 2 EACH PO [...] 20, 2022 4:21pm December 16, 2023 9:58am Xawokwrl-Loe-Nvbhg -Vit K-Lycop (One-A-Day Men's Multivitamin) 400-20-300 mcg tablet (13 sources) Start: 11-27-2021 End: 12-14-2024 Qbjbefde-Ssh-Ehoql- Vit K-Lycop (One-A-Day Men's Multivitamin) 400-20-300 mcg tablet Discontinued 1 {tbl} PO DAILY November 27, 2021 12:00am December 14, 2024 11:02am Start: 11-27-2021 take 1 tablet by elizabeth once daily Mrgriich-Nrz-Zekgu-Vit K-Lycop (One-A-Da y Men's Multivitamin) 400-20-300 mcg tablet Active 1 TABLET PO DAILY November 27, 2021 12:00am Start: 11-27-2021 take 1 tablet by elizabeth th once daily Kwbutnhy-Wtj-Auruf-Vit K-Lycop (-A Men's Multivitamin) 400-20-300 mcg tablet Active 1 TABLET PO DAILY November 26, 2021 11:00pm Start: 11-27-2021 take 1 tablet by elizabeth th once Evgiuyhv-Cdn-Qtwqj-Vit K-Lycop (-A Men's Multivitamin) 400-20-300 mcg tablet [...] disease (20 sources) Atherosclerotic heart disease of [place] coronary artery without angina pectoris; Translations: [Coronary [...] Screeningon 02-28-[address] Lung Screening [facility] [address] [place] [address] Lung Screening MR#: [id number] Acct: [id number] Name: JARON MIRELES Rep #: [id number] : 1955 M 69 From: Blaine Loja MD PCP: Dr. Melvin Trujillo MD Status: REG CLI Study: Low Dose CT Lung Screening Date of Exam: 02/28 Exam# [id number] Ordering Dr: Kade Novoa NP PRECONSTRUCTION MANAGER -C PROCEDURE: LOW DOSE CT LUNG SCREENING 02/28/2025 REASON FOR EXAM: TOBACCO ABUSUSE TECHNIQUE: Procedure Code: CTLUNGSCREEN Modality: CT Procedure: LOW DOSE CT LUNG SCREENING Coronal and Sagittal reconstruction series were provided. One or more dose reduction techniques were used (e.g., Automated exposure control, adjustment of the mA and/or kV according to patient size, use of iterative reconstruction technique). REFERENCE LINK: [facility] Lung-RADS RADIATION DOSE SUMMARY: CTDlvol: 3.0 mGy [...] SCREENING LDCT. Other Significant Findings: Reading Location: [facility] CC: Kade ROMAON NP-Alondra Irwinorrmandy; Dr. 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 Performed By: #### L 501.9910 #### [facility] [address] [place], [address] Cardiology Visit Reporton Cardiology Visit Report [facility] [address] [place] [address] OFFICE VISIT Date of Service: 12/14/24 MR#: [id number] Acct: [id number] Name: JARON MIRELES Rep #: [id number] : 1955 Provider: DENISE sifuentes Age/Sex: 69/M Location: [facility] Status: Signed HPI HPI History of Present [...] NIBP Intake Visit Reasons: 1 Y FU Letter Of Credit Document Examiner Required: No Is patient in pain?: No [...] past year?: Yes (Off of a ladder) [facility] Medical History Essential (primary) hypertension Elevated blood pressure reading in office without diagnosis of hypertension Nicotine dependence GERD (gastroesophageal reflux disease) Hyperlipidemia COPD (chronic obstructive pulmonary disease) Atherosclerotic heart disease [place] coronary artery w/angina pectoris Surgical History History [...] never substanc (more content not included)... Normal [facility] CBC W/Diff, Automatedon 07-10 Absolute Lymph 2.06 X10 3/uL Normal 0.83-4.51 [facility] Comment on above: Order Comment: Order Date: 07/20/24 Order Info: 0184-1 - CBCD Performed By: #### L 500.4050, L502.0250, L100.0100 #### [facility] [address] [place], [address] Absolute Neut 6.4 X10 3/uL Normal 2.0-7.7 [facility] Comment on above: Order Comment: Order Date: 07/20/24 Order Info: 0184-1 - CBCD Performed By: #### L 500.4050, L502.0250, L100.0100 #### [facility] [address] [place], [address] Basophils/100 WBC (Bld) 0.9 % Normal 0-1 [facility] Comment on above: Order Comment: Order Date: 07/20/24 Order Info: 0184-1 - CBCD Performed By: #### L 500.4050, L502.0250, L100.0100 #### [facility] [address] [place], [address] Eosinophils/100 WBC (Bld) 2.8 % Normal 0-5 [facility] Comment on above: Order Comment: Order Date: 07/20/24 Order Info: 0184-1 - CBCD Performed By: #### L 500.4050, L502.0250, L100.0100 #### [facility] [address] [place], [address] Erythrocyte distribution width (RBC) [Ratio] 12.7 % Normal 11.6-14.6 [facility] Comment on above: Order Comment: Order Date: 07/20/24 Order Info: 0184-1 - CBCD Performed By: #### L 500.4050, L502.0250, L100.0100 #### [facility] [address] [place], [address] Hematocrit (Bld) [Volume fraction] 46.5 % Normal 40-54 [facility] Comment on above: Order Comment: Order Date: 07/20/24 Order Info: 0184-1 - CBCD Performed By: #### L 500.4050, L502.0250, L100.0100 #### [facility] [address] [place], [address] Hemoglobin (Bld) [Mass/Vol] 15.5 g/dL Normal 13.0-16.5 [facility] Comment on above: Order Comment: Order Date: 07/20/24 Order Info: 0184- - CBCD Performed By: #### L 500.4050, L502.0250, L100.0100 #### [facility] [address] [place], [address] IG% 0.700 Normal 0.0-0.9 [facility] Comment on above: Order Comment: Order Date: 07/20/24 Order Info: 018- - CBCD Result Comment: IG% - Immature Granulocytes (promyelocytes, myelocytes and metamyelocytes) > 1% indicates that a LEFT SHIFT is Present. Performed By: #### L 500.4050, L502.0250, L100.0100 #### [facility] [address] [place], [address] Lymphocytes/100 WBC (Bld) 21.2 % Normal 19-41 [facility] Comment on above: Order Comment: Order Date: 07/20/24 Order Info: 018- - CBCD Performed By: #### L 500.4050, L502.0250, L100.0100 #### [facility] [address] [place], [address] MCH (RBC) [Entitic mass] 32.2 pg High 27.0-32.0 [facility] Comment on above: Order Comment: Order Date: 07/20/24 Order Info: 0184- - CBCD Performed By: #### L 500.4050, L502.0250, L100.0100 #### [facility] [address] [place], [address] MCHC (RBC) [Mass/Vol] 33.3 g/dL Normal 32-36 [facility] Comment on above: Order Comment: Order Date: 07/20/24 Order Info: 0184- - CBCD Performed By: #### L 500.4050, L502.0250, L100.0100 #### [facility] [address] [place], [address] MCV (RBC) [Entitic vol] 96.5 fL High 80-94 [facility] Comment on above: Order Comment: Order Date: 07/20/24 Order Info: 0184-1 - CBCD Performed By: #### L 500.4050, L502.0250, L100.0100 #### [facility] [address] [place], [address] Monocytes/100 WBC (Bld) 8.7 % Normal 0-10 [facility] Comment on above: Order Comment: Order Date: 07/20/24 Order Info: 0184-1 - CBCD Performed By: #### L 500.4050, L502.0250, L100.0100 #### [facility] [address] [place], [address] Neutrophils/100 WBC (Bld) 65.7 % Normal 47-70 [facility] Comment on above: Order Comment: Order Date: 07/20/24 Order Info: 0184-1 - CBCD Performed By: #### L 500.4050, L502.0250, L100.0100 #### [facility] [address] [place], [address] Nucleated RBC (Bld) [#/Vol] 0 10*3/uL Normal 0-5 [facility] Comment on above: Order Comment: Order Date: 07/20/24 Order Info: 0184-1 - CBCD Performed By: #### L 500.4050, L502.0250, L100.0100 #### [facility] [address] [place], [address] Platelet mean volume (Bld) [Entitic vol] 10.8 fL Normal 6.2-12.0 [facility] Comment on above: Order Comment: Order Date: 07/20/24 Order Info: 0184-1 - CBCD Performed By: #### L 500.4050, L502.0250, L100.0100 #### [facility] [address] [place], [address] Platelets (Bld) [#/Vol] 239 10*3/uL Normal 150-450 [facility] Comment on above: Order Comment: Order Date: 07/20/24 Order Info: 0184-1 - CBCD Performed By: #### L 500.4050, L502.0250, L100.0100 #### [facility] [address] [place], [address] RBC (Bld) [#/Vol] 4.82 10*6/uL Normal 4.6-6.2 [facility] Comment on above: Order Comment: Order Date: 07/20/24 Order Info: 0184- - CBCD Performed By: #### L 500.4050, L502.0250, L100.0100 #### [facility] [address] [place], [address] RDW SD 44.9 fl High 35.1-43.9 [facility] Comment on above: Order Comment: Order Date: 07/20/24 Order Info: 0184- - CBCD Performed By: #### L 500.4050, L502.0250, L100.0100 #### [facility] [address] [place], [address] WBC (Bld) [#/Vol] 9.7 10*3/uL Normal 4.4-11.0 [facility] Comment on above: Order Comment: Order Date: 07/20/24 Order Info: 0184-1 - CBCD Performed By: #### L 500.4050, L502.0250, L100.0100 #### [facility] [address] [place], [address] Comprehensive Metabolic Prof ilon 07-20-2024 Albumin [Mass/Vol] 4.6 g/dL Normal 3.2-5.0 [facility] Comment on above: Order Comment: Order Date: 07/20/24 Order Info: 0786-1 - CMP Performed By: #### L 500.4050, L502.0250, L100.0100 #### [facility] [address] [place], [address] Albumin/Globulin [Mass ratio] 1.6 {ratio} Normal 0.9-2.4 [facility] Comment on above: Order Comment: Order Date: 07/20/24 Order Info: 0786-1 - CMP Performed By: #### L 500.4050, L502.0250, L100.0100 #### [facility] [address] [place], [address] ALK P 75 U/L Normal 45-117 [facility] Comment on above: Order Comment: Order Date: 07/20/24 Order Info: 0786-1 - CMP Performed By: #### L 500.4050, L502.0250, L100.0100 #### [facility] [address] [place], [address] ALT [Catalytic activity/Vol] 26 U/L Normal 16-61 [facility] Comment on above: Order Comment: Order Date: 07/20/24 Order Info: 0786-1 - CMP Performed By: #### L 500.4050, L502.0250, L100.0100 #### [facility] [address] [place], [address] AST [Catalytic activity/Vol] 19 U/L Normal 15-37 [facility] Comment on above: Order Comment: Order Date: 07/20/24 Order Info: 0786-1 - CMP Performed By: #### L 500.4050, L502.0250, L100.0100 #### [facility] [address] [place], [address] Bilirubin [Mass/Vol] 0.50 mg/dL Normal 0.20-1.00 [facility] Comment on above: Order Comment: Order Date: 07/20/24 Order Info: 0786-1 - CMP Result Comment: For patients on eltrombopag therapy, use of Dimension Armbrust TBIL is not recommended. Performed By: #### L 500.4050, L502.0250, L100.0100 #### [facility] [address] [place], [address] BUN/CRE 17.6 RATIO Normal 10-20 [facility] Comment on above: Order Comment: Order Date: 07/20/24 Order Info: 0786-1 - CMP Performed By: #### L 500.4050, L502.0250, L100.0100 #### [facility] [address] [place], [address] CA,Total 9.4 mg/dL Normal 8.5-10.1 [facility] Comment on above: Order Comment: Order Date: 07/20/24 Order Info: 0786-1 - CMP Performed By: #### L 500.4050, L502.0250, L100.0100 #### [facility] [address] [place], [address] Chloride [Moles/Vol] 103 mmol/L Normal 98-107 [facility] Comment on above: Order Comment: Order Date: 07/20/24 Order Info: 0786-1 - CMP Performed By: #### L 500.4050, L502.0250, L100.0100 #### [facility] [address] [place], [address] CO2 [Moles/Vol] 28.0 mmol/L Normal 21.0-32.0 [facility] Comment on above: Order Comment: Order Date: 07/20/24 Order Info: 0786-1 - CMP Performed By: #### L 500.4050, L502.0250, L100.0100 #### [facility] [address] [place], [address] Creatinine [Mass/Vol] 1.02 mg/dL Normal 0.70-1.30 [facility] Comment on above: Order Comment: Order Date: 07/20/24 Order Info: 0786-1 - CMP Result Comment: The validity of the calculated GFR GFRAA in patients over 70 years has not been determined. Clinical correlation is essential. Performed By: #### L 500.4050, L502.0250, L100.0100 #### [facility] [address] [place], [address] EST GFR - AA 93 mL/min Normal >60 [facility] Comment on above: Order Comment: Order Date: 07/20/24 Order Info: 0786-1 - CMP Result Comment: Afri can [place] GFR Calc Performed By: #### L 500.4050, L502.0250, L100.0100 #### [facility] [address] [place], [address] GAP 8 Normal 5-15 [facility] Comment on above: Order Comment: Order Date: 07/20/24 Order Info: 0786-1 - CMP Performed By: #### L 500.4050, L502.0250, L100.0100 #### [facility] [address] [place], [address] GFR/1.73 sq M.predicted among non-blacks MDRD (S/P/Bld) [Vol rate/Area] 77 mL/min/{1.73_m2} Normal >60 [facility] Comment on above: Order Comment: Order Date: 07/20/24 Order Info: 0786-1 - CMP Result Comment: Non- GFR Calc Performed By: #### L 500.4050, L502.0250, L100.0100 #### [facility] [address] [place], [address] Globulin (S) [Mass/Vol] 2.9 g/dL Normal 2.2-4.2 [facility] Comment on above: Order Comment: Order Date: 07/20/24 Order Info: 0786-1 - CMP Performed By: #### L 500.4050, L502.0250, L100.0100 #### [facility] [address] [place], [address] Glucose [Mass/Vol] 90 mg/dL Normal 74-106 [facility] Comment on above: Order Comment: Order Date: 07/20/24 Order Info: 0786-1 - CMP Performed By: #### L 500.4050, L502.0250, L100.0100 #### [facility] [address] [place], [address] Potassium [Moles/Vol] 4.3 mmol/L Normal 3.5-5.1 [facility] Comment on above: Order Comment: Order Date: 07/20/24 Order Info: 0786-1 - CMP Performed By: #### L 500.4050, L502.0250, L100.0100 #### [facility] [address] [place], [address] Sodium [Moles/Vol] 138 mmol/L Normal 136-145 [facility] Comment on above: Order Comment: Order Date: 07/20/24 Order Info: 0786-1 - CMP Performed By: #### L 500.4050, L502.0250, L100.0100 #### [facility] [address] [place], [address] T PROT 7.5 g/dL Normal 6.4-8.2 [facility] Comment on above: Order Comment: Order Date: 07/20/24 Order Info: 0786-1 - CMP Performed By: #### L 500.4050, L502.0250, L100.0100 #### [facility] [address] [place], [address] Urea nitrogen [Mass/Vol] 18 mg/dL Normal 7-18 [facility] Comment on above: Order Comment: Order Date: 07/20/24 Order Info: 0786-1 - CMP Performed By: #### L 500.4050, L502.0250, L100.0100 #### [facility] [address] [place], [address] Microalb:Creat Ratio,Random URon 07-20-2024 Creatinine [Mass/Vol] 64.30 mg/dL Normal NO RAN GE EST. [facility] Comment on above: Order Comment: Order Date: 07/20/24 Order Info: 0779-1 - MIACRE Performed By: #### L 500.4050, L502.0250, L100.0100 #### [facility] [address] [place], [address] MALB:CRE 8.0 mg/g CRE Normal <30 mg/g CRE [facility] Comment on above: Order Comment: Order Date: 07/20/24 Order Info: 0779-1 - MIACRE Performed By: #### L 500.4050, L502.0250, L100.0100 #### [facility] [address] [place], [address] MICROALBUMIN,UR 5.2 mg/L Normal NO RANGE EST. [facility] Comment on above: Order Comment: Order Date: 07/20/24 Order Info: 0779-1 - MIACRE Performed By: #### L 500.4050, L502.0250, L100.0100 #### [facility] [address] [place], [address] Absolute lymphocyte countOrd ered By: Melvin Trujillo on 09-23-2023 Lymphocytes Auto (Unsp spec) [#/Vol] 1.91 10*3/uL 0.83-4.51 [facility] Automated lymphocyte count a s percentage of total leukocytesOrdered By: Melvin Trujillo on 09-23-2023 Lymphocytes/100 WBC Auto (Unsp spec) 20.1 % 19-41 [facility] Basophil percentageOrdered B y: Melvin Trujillo on 09-23-2023 Basophils/100 WBC (Bld) 0.8 % 0-1 [facility] Bilirubin [Mass/Vol] 0.80 mg/dL 0.20-1.00 [facility] Comment on above: For patients on eltr ombopag therapy, use of Dimension Armbrust TBIL is not recommended. Chloride [Moles/Vol] 107 mmol/L 98-107 [facility] Cholesterol [Mass/Vol] 138 mg/dL <200 [facility] Comment on above: <200 mg/dL Desirable 200-240 mg/dL Borderline >240 mg/dL High Risk Eosinophils/100 WBC (Bld) 2.2 % 0-5 [facility] Glucose [Mass/Vol] 114 mg/dL 74-106 [facility] Comment on above: Fasting Glucose resu lt from 100 to 125 mg/dL suggests IMPAIRED HOMEOSTASIS per A.D.A. criteria. Hemoglobin (Bld) [Mass/Vol] 15.1 g/dL 13.0-16.5 [facility] Monocytes/100 WBC (Bld) 7.3 % 0-10 [facility] Neutrophils (Bld) [#/Vol] 6.5 10*3/uL 2.0-7.7 [facility] Neutrophils/100 WBC (Bld) 68.9 % 47-70 [facility] Potassium [Moles/Vol] 5.2 mmol/L 3.5-5.1 [facility] Protein [Mass/Vol] 7.2 g/dL 6.4-8.2 [facility] Sodium [Moles/Vol] 138 mmol/L 136-145 [facility] Triglyceride [Mass/Vol] 84 mg/dL <199 [facility] Comment on above: The drugs N-Acetylcy steine and Metamizole may falsely depress this assay.Serum Triglycerides Reference Interval Normal <150 mg/dL Borderline high 150 - 199 mg/dL High 200 - 499 mg/dL Very High > or = 500 mg/dL WBC (Bld) [#/Vol] 9.5 10*3/uL 4.4-11.0 [facility] Determination of erythrocyte mean corpuscular volume (MCV)Ordered By: Melvin Trujillo on 09-23-2023 MCV (RBC) [Entitic vol] 96.5 fL 80-94 [facility] Erythrocyte distribution wid th ratioOrdered By: Melvin Trujillo on 09-23-2023 Erythrocyte distribution width (RBC) [Ratio] 14.0 % 11.6-14.6 [facility] Erythrocyte distribution wid th standard deviationOrdered By: Melvin Trujillo on 09-23-2023 Erythrocyte distribution width (RBC) [Entitic vol] 49.4 fL 35.1-43.9 [facility] Hematocrit Auto (Bld) [Volum e fraction]Ordered By: Melvin Trujillo on 09-23-2023 Hematocrit (Bld) [Volume fraction] 44.3 % 40-54 [facility] Immature granulocytes/100 WB C Auto (Bld)Ordered By: Melvin Trujillo on 09-23-2023 Immature granulocytes/100 WBC (Bld) 0.700 % 0.0-0.9 [facility] Comment on above: IG% - Immature Granu locytes (promyelocytes, myelocytes and metamyelocytes) > 1% indicates that a LEFT SHIFT is Present. Laboratory - Chemistry and C hemistry - challengeOrdered By: Melvin Trujillo on 09-23-2023 Albumin/Globulin [Mass ratio] 1.2 {ratio} 0.9-2.4 [facility] ALP [Catalytic activity/Vol] 65 U/L 45-117 [facility] ALT [Catalytic activity/Vol] 29 U/L 16-61 [facility] Cholesterol in HDL [Mass/Vol] 59 mg/dL >40 [facility] Comment on above: The drugs N-Acetylcy steine and Metamizole may falsely depress this assay. Reference Range HDL <40 mg/dL Low HDL Cholesterol HDL >or= 60 mg/dL High HDL Cholesterol Cholesterol in LDL [Mass/Vol] 62 mg/dL 0-130 [facility] CO2 [Moles/Vol] 30.0 mmol/L 21.0-32.0 [facility] Globulin (S) [Mass/Vol] 3.2 g/dL 2.2-4.2 [facility] Urea nitrogen/Creatinine [Mass ratio] 15.4 mg/mg 10-20 [facility] - Hematology and Cell countsOrdered By: Melvin Trujillo on 09-23-2023 MCH (RBC) [Entitic mass] 32.9 pg 27.0-32.0 [facility] MCHC (RBC) [Mass/Vol] 34.1 g/dL 32-36 [facility] Nucleated RBC/100 WBC (Bld) [Ratio] 0 % 0-5 [facility] Platelet mean volume (Bld) [Entitic vol] 10.5 fL 6.2-12.0 [facility] Platelets (Bld) [#/Vol] 268 10*3/uL 150-450 [facility] No Panel InformationOrdered By: Melvin Trujillo on 09-23-2023 Estimated GFR (MDRD) Amer 79 mL/min >60 [facility] Comment on above: GFR Calc Estimated GFR (MDRD) Non-Af Amer 66 mL/min >60 [facility] Comment on above: Non- GFR Calc Urine Microalbumin/Creatinin e Ratio 11.5 mg/g CRE <30 [facility] VLDL Cholesterol 17 mg/dL 5-40 [facility] RBC Auto (Bld) [#/Vol]Ordere d By: Melvin Trujillo on 09-23-2023 RBC (Bld) [#/Vol] 4.59 10*6/uL 4.6-6.2 [facility] Serum or plasma calcium todd urement (mass/volume)Ordered By: Melvin Trujillo on 09-23-2023 Calcium [Mass/Vol] 9.2 mg/dL 8.5-10.1 [facility] Serum or plasma creatinine m easurement (mass/volume)Ordered By: Melvin Trujillo on 09-23-2023 Creatinine [Mass/Vol] 1.17 mg/dL 0.70-1.30 [facility] Comment on above: The validity of the calculated GFR & GFRAA in patients over 70 years has not been determined. Clinical correlation is essential. Serum or plasma urea nitroge n measurement (mass/volume)Ordered By: Melvin Trujillo on 09-23-2023 Urea nitrogen [Mass/Vol] 18 mg/dL 7-18 [facility] Thin prep Papanicolaou smear with manual screeningOrdered By: Melvin Trujillo on 09-23-2023 Thin prep Papanicolaou smear with manual screening 4.0 g/dL 3.2-5.0 [facility] Thin prep Papanicolaou smear with manual screening 20 U/L 15-37 [facility] Thin prep Papanicolaou smear with manual screening 1 5-15 [facility] Thin prep Papanicolaou smear with manual screening 8.7 mg/L NO RANGE EST. [facility] Urine creatinine measurement (mass/volume)Ordered By: Melvin Trujillo on 09-23-2023 Creatinine (U) [Mass/Vol] 75.40 mg/dL NO RANGE EST. [facility] Absolute lymphocyte countOrd ered By: Melvin Trujillo on 01-21-2023 Lymphocytes Auto (Unsp spec) [#/Vol] 1.69 10*3/uL 0.83-4.51 [facility] Basophil percentageOrdered B y: Melvin Trujillo on 01-21-2023 Basophil percentage 2.9 mg/dL 2.5-4.9 [facility] Basophils/100 WBC (Bld) 0.8 % 0-1 [facility] Bilirubin [Mass/Vol] 0.40 mg/dL 0.20-1.00 [facility] Comment on above: For patients on eltr ombopag therapy, use of Dimension Armbrust TBIL is not recommended. Chloride [Moles/Vol] 104 mmol/L 98-107 [facility] Eosinophils/100 WBC (Bld) 2.6 % 0-5 [facility] Glucose [Mass/Vol] 91 mg/dL 74-106 [facility] Neutrophils (Bld) [#/Vol] 5.1 10*3/uL 2.0-7.7 [facility] Neutrophils/100 WBC (Bld) 65.8 % 47-70 [facility] Potassium [Moles/Vol] 4.9 mmol/L 3.5-5.1 [facility] Protein [Mass/Vol] 7.2 g/dL 6.4-8.2 [facility] Sodium [Moles/Vol] 139 mmol/L 136-145 [facility] WBC (Bld) [#/Vol] 7.7 10*3/uL 4.4-11.0 [facility] Blood erythrocytes count (nu mber/volume)Ordered By: Melvin Trujillo on 01-21-2023 RBC (Bld) [#/Vol] 4.43 10*6/uL 4.6-6.2 [facility] Blood hemoglobin measurement (mass/volume)Ordered By: Melvin Trujillo on 01-21-2023 Hemoglobin (Bld) [Mass/Vol] 14.7 g/dL 13.0-16.5 [facility] Blood lymphocytes/100 leukoc ytesOrdered By: Melvin Trujillo on 01-21-2023 Lymphocytes/100 WBC (Bld) 21.9 % 19-41 [facility] Blood monocytes/100 leukocyt esOrdered By: Melvin Trujillo on 01-21-2023 Monocytes/100 WBC (Bld) 8.5 % 0-10 [facility] Blood platelet mean volumeOr dered By: Melvin Trujillo on 01-21-2023 Platelet mean volume (Bld) [Entitic vol] 10.5 fL 6.2-12.0 [facility] Determination of erythrocyte mean corpuscular volume (MCV)Ordered By: Melvin Trujillo on 01-21-2023 MCV (RBC) [Entitic vol] 98.2 fL 80-94 [facility] Hematocrit Auto (Bld) [Volum e fraction]Ordered By: Melvin Trujillo on 01-21-2023 Hematocrit (Bld) [Volume fraction] 43.5 % 40-54 [facility] Laboratory - Chemistry and C hemistry - challengeOrdered By: Melvin Trujillo on 01-21-2023 ALP [Catalytic activity/Vol] 69 U/L 45-117 [facility] ALT [Catalytic activity/Vol] 26 U/L 16-61 [facility] CO2 [Moles/Vol] 30.0 mmol/L 21.0-32.0 [facility] Globulin (S) [Mass/Vol] 3.3 g/dL 2.2-4.2 [facility] Magnesium [Mass/Vol] 2.3 mg/dL 1.6-2.6 [facility] Urea nitrogen/Creatinine [Mass ratio] 15.8 mg/mg 10-20 [facility] Laboratory - Hematology and Cell countsOrdered By: Melvin Trujillo on 01-21-2023 Erythrocyte distribution width (RBC) [Entitic vol] 47.8 fL 35.1-43.9 [facility] Erythrocyte distribution width (RBC) [Ratio] 13.2 % 11.6-14.6 [facility] Immature granulocytes/100 WBC (Bld) 0.400 % 0.0-0.9 [facility] Comment on above: IG% - Immature Granu locytes (promyelocytes, myelocytes and metamyelocytes) > 1% indicates that a LEFT SHIFT is Present. MCH (RBC) [Entitic mass] 33.2 pg 27.0-32.0 [facility] Nucleated RBC/100 WBC (Bld) [Ratio] 0 % 0-5 [facility] MCHC Auto (RBC) [Mass/Vol]Or dered By: Melvin Trujillo on 01-21-2023 MCHC (RBC) [Mass/Vol] 33.8 g/dL 32-36 [facility] No Panel InformationOrdered By: Melvin Trujillo on 01-21-2023 Estimated GFR (MDRD) Amer 77 mL/min >60 [facility] Comment on above: GFR Calc Estimated GFR (MDRD) Non-Af Amer 64 mL/min >60 [facility] Comment on above: Non- GFR Calc Thyroid Stimulating Hormone (TSH) 2.18 uIU/mL 0.358-3.74 [facility] Platelets bldOrdered By: Lizabeth Trujillo on 01-21-2023 Platelets (Bld) [#/Vol] 245 10*3/uL 150-450 [facility] Serum or plasma albumin todd urement (mass/volume)Ordered By: Melvin Trujillo on 01-21-2023 Albumin [Mass/Vol] 3.9 g/dL 3.2-5.0 [facility] Serum or plasma albumin/glob ulin mass ratioOrdered By: Melvin Trujillo on 01-21-2023 Albumin/Globulin [Mass ratio] 1.2 {ratio} 0.9-2.4 [facility] Serum or plasma calcium todd urement (mass/volume)Ordered By: Melvin Trujillo on 01-21-2023 Calcium [Mass/Vol] 8.8 mg/dL 8.5-10.1 [facility] Serum or plasma creatinine m easurement (mass/volume)Ordered By: Melvin Trujillo on 01-21-2023 Creatinine [Mass/Vol] 1.20 mg/dL 0.70-1.30 [facility] Comment on above: The validity of the calculated GFR & GFRAA in patients over 70 years has not been determined. Clinical correlation is essential. Serum or plasma urea nitroge n measurement (mass/volume)Ordered By: Melvin Trujillo on 01-21-2023 Urea nitrogen [Mass/Vol] 19 mg/dL 7-18 [facility] Thin prep Papanicolaou smear with manual screeningOrdered By: Melvin Trujillo on 01-21-2023 Thin prep Papanicolaou smear with manual screening 18 U/L 15-37 [facility] Thin prep Papanicolaou smear with manual screening 5 - [facility] SURGICAL PATHOLOGY RESULTSon 11-13-2022 Pathology Report Name JARON MIRELES Pathologist: BRIAN MCGRATH M.D. Date of Procedure: 11/06/2022 Date Received: 11/06/2022 Date Reported 11/13/2022 Submitting Physician: VINAYAK EDMONDS DO Location: [facility] Copy To/Referring/Attendin g: MELVIN TRUJILLO MD Other External # FINAL DIAGNOSIS RECTOSIGMOID COLON, POLYP, POLYPECTOMY: -- HYPERPLASTIC POLYP. Electronically Signed Out By BRIAN MCGRATH M.D./MAKENZIE By the signature on this report, the individual or group listed as making the Final Interpretation/Diagno sis certifies that they have reviewed this case. Diagnostic interpretation performed at [place] [address] Clinical History: Clinical Diagnosis History COLONOSCOPY Specimens Submitted As: A: RECTO-SIGMOID JUNCTION POLYP Gross Description: Received in formalin, labeled with the patient's name and hospital number and rectosigmoid polyp, is a fragment of engel, soft tissue measuring 0.4 x 0.3 x 0.2 cm. The specimen is submitted in toto in one cassette. MKM mkm/11/08/2022 [facility] Department of Pathology [address] [place] [address] Colonoscopyon 11-06-2022 Colonoscopy PATIENTNAME Patient Name: Jaron Mireles EXAMDATE Procedure Date: 11/06/2022 2:21 PM PATIENTID PATIENTACCOUNTNUM PATIENTDOB Date of : 1955 ADMITTYPE Admit Type: Outpatient PATIENTROOM Site: [facility] Endo Proc RM 1 ETHNICITY Ethnicity: Not or RACE Race: White PROVDR Attending MD: Vinayak Edmonds DO, [id number] ENDOPROCEDURENAME Procedure: Colonoscopy INDICATION Indications: Surveillance: Personal history of colonic polyps (unknown histology) on last colonoscopy more than 5 years ago PRIMARYPROVIDER Providers: Vinayak Edmonds DO (Doctor), Damaris Ferrari RN (Nurse), Joel Sanchez, [employer] EDREFPROVIDER Referring: Melvin Trujillo MD CURRENT_MEDS Medicines: [...] results. CPT_CODES Procedure Code(s): --- Professional --- 00871, Colonoscopy, flexible; with biopsy, single or multiple 38902, Moderate sedation; each additional 15 minutes intraservice time G0500, Moderate sedation services provided by the same physician or other qualified health child care provider performing a gastrointestinal endoscopic service that sedation supports, requiring the presence of an independent trained observer to assist in the monitoring of the patient's level of consciousness and physiological status; initial 15 minutes of intra-service time; patient age 5 years or older (additional (more content not included)... [facility] Vinayak Edmonds DO - 12/02/2022 Patient Name: Jaron Mireles Procedure Date: 11/06/2022 2:21 PM Date of : 1955 Admit Type: Outpatient Site: [facility] 1 Ethnicity: Not or Race: White Attending MD: Vinayak Edmonds DO, [id number] Procedure: Colonoscopy Indications: Surveillance: Personal history of colonic polyps (unknown histology) on last colonoscopy more than 5 years ago Providers: Vinayak Edmonds DO (Doctor), Damaris Ferrari RN (Nurse), Joel Sanchez, [employer] Referring: Melvin Trujillo MD Medicines: Midazolam 7.5 [...] pathology results. Procedure Code(s): --- Professional --- 82880, Colonoscopy, flexible; with biopsy, single or multiple 69784, Moderate sedation; each additional 15 minutes intraservice time G0500, Moderate sedation services provided by the same physician or other qualified health child care provider performing a gastrointestinal endoscopic service that sedation supports, requiring the presence of an independent trained observer to assist in the monitoring of the patient's level of consciousness and physiological status; initial 15 minutes of intra-service time; patient age 5 years or older (additional time may be reported with [address]842, as appropriate) Diagnosis Code(s): --- Professional --- Z12.11, Encounter for screening for malignant neoplasm of colon Z86.010, Personal history of colonic polyps (more content not included)... [facility] Work Phone: Radiology Study observation (narrative) [facility] Work Phone: ColonoscopyOrdered By: Vinayak Edmonds on 11-06-2022 [facility] Work Phone: [facility] Surgical Pathology Depar tmenton 11-06-2022 [facility] Surgical Pathology Department Name JARON MIRELESCandelaria Pathologist: BRIAN MCGRATH M.D. Date of Procedure: 11/06/2022 Date Received: 11/06/2022 Date Reported 11/13/2022 Submitting Physician: VINAYAK EDMONDS DO Location: [facility] Copy To/Referring/Attendin g: MELVIN TRUJILLO MD Other External # FINAL DIAGNOSIS RECTOSIGMOID COLON, POLYP, POLYPECTOMY: -- HYPERPLASTIC POLYP. Electronically Signed Out By BRIAN MCGRATH M.D./MAKENZIE By the signature on this report, the individual or group listed as making the Final Interpretation/Diagno sis certifies that they have reviewed this case. Diagnostic interpretation performed at [address] [place] [address] Clinical History: Clinical Diagnosis History COLONOSCOPY Specimens Submitted As: A: RECTO-SIGMOID JUNCTION POLYP Gross Description: Received in formalin, labeled with the patient's name and hospital number and rectosigmoid polyp, is a fragment of engel, soft tissue measuring 0.4 x 0.3 x 0.2 cm. The specimen is submitted in toto in one cassette. MKM mkm/11/08/2022 [facility] Department of Pathology [id number] [place] [address] [facility] Comment on above: Performed By: #### [facility] #### [facility] Surgical Pathology Department [address] [place] [address] Absolute lymphocyte countOrd ered By: Dr. Trujillo on 10-11-2022 Lymphocytes Auto (Unsp spec) [#/Vol] 2.30 10*3/uL 0.83-4.51 [facility] Basophil percentageOrdered B y: Chris Pineda on 10-11-2022 Cholesterol [Mass/Vol] 128 mg/dL <200 [facility] Comment on above: <200 mg/dL Desirable 200-240 mg/dL Borderline >240 mg/dL High Risk Triglyceride [Mass/Vol] 73 mg/dL <199 [facility] Comment on above: The drugs N-Acetylcy steine and Metamizole may falsely depress this assay.Serum Triglycerides Reference Interval Normal <150 mg/dL Borderline high 150 - 199 mg/dL High 200 - 499 mg/dL Very High > or = 500 mg/dL Basophil percentageOrdered B y: Dr. Trujillo on 10-11-2022 Basophils/100 WBC (Bld) 1.2 % 0-1 [facility] Bilirubin [Mass/Vol] 0.60 mg/dL 0.20-1.00 [facility] Comment on above: For patients on eltr ombopag therapy, use of Dimension Armbrust TBIL is not recommended. Chloride [Moles/Vol] 105 mmol/L 98-107 [facility] Eosinophils/100 WBC (Bld) 2.6 % 0-5 [facility] Glucose [Mass/Vol] 98 mg/dL 74-106 [facility] Neutrophils (Bld) [#/Vol] 4.7 10*3/uL 2.0-7.7 [facility] Neutrophils/100 WBC (Bld) 58.8 % 47-70 [facility] Potassium [Moles/Vol] 4.5 mmol/L 3.5-5.1 [facility] Protein [Mass/Vol] 7.1 g/dL 6.4-8.2 [facility] Sodium [Moles/Vol] 140 mmol/L 136-145 [facility] WBC (Bld) [#/Vol] 8.0 10*3/uL 4.4-11.0 [facility] Blood erythrocytes count (nu mber/volume)Ordered By: Dr. Trujillo on 10-11-2022 RBC (Bld) [#/Vol] 4.72 10*6/uL 4.6-6.2 [facility] Blood hemoglobin measurement (mass/volume)Ordered By: Dr. Trujillo on 10-11-2022 Hemoglobin (Bld) [Mass/Vol] 15.2 g/dL 13.0-16.5 [facility] Blood lymphocytes/100 leukoc ytesOrdered By: Dr. Trujillo on 10-11-2022 Lymphocytes/100 WBC (Bld) 28.6 % 19-41 [facility] Blood monocytes/100 leukocyt esOrdered By: Dr. Trujillo on 10-11-2022 Monocytes/100 WBC (Bld) 7.8 % 0-10 [facility] Blood platelet mean volumeOr dered By: Dr. Trujillo on 10-11-2022 Platelet mean volume (Bld) [Entitic vol] 10.1 fL 6.2-12.0 [facility] Determination of erythrocyte mean corpuscular volume (MCV)Ordered By: Dr. Trujillo on 10-11-2022 MCV (RBC) [Entitic vol] 96.2 fL 80-94 [facility] Direct bilirubinOrdered By: Dr. Trujillo on 10-11-2022 Bilirubin.direct [Mass/Vol] 0.19 mg/dL 0.00-0.30 [facility] Hematocrit Auto (Bld) [Volum e fraction]Ordered By: Dr. Trujillo on 10-11-2022 Hematocrit (Bld) [Volume fraction] 45.4 % 40-54 [facility] Laboratory - Chemistry and C hemistry - challengeOrdered By: Dr. Trujillo on 10-11-2022 ALP [Catalytic activity/Vol] 74 U/L 45-117 [facility] ALT [Catalytic activity/Vol] 21 U/L 16-61 [facility] CO2 [Moles/Vol] 29.0 mmol/L 21.0-32.0 [facility] Free T4 [Mass/Vol] 0.88 ng/dL 0.76-1.46 [facility] Globulin (S) [Mass/Vol] 3.1 g/dL 2.2-4.2 [facility] Urea nitrogen/Creatinine [Mass ratio] 18.8 mg/mg 10-20 [facility] - Hematology and Cell countsOrdered By: Dr. Trujillo on 10-11-2022 Erythrocyte distribution width (RBC) [Entitic vol] 45.3 fL 35.1-43.9 [facility] Erythrocyte distribution width (RBC) [Ratio] 12.7 % 11.6-14.6 [facility] Immature granulocytes/100 WBC (Bld) 1.000 % 0.0-0.9 [facility] Comment on above: IG% - Immature Granu locytes (promyelocytes, myelocytes and metamyelocytes) > 1% indicates that a LEFT SHIFT is Present. MCH (RBC) [Entitic mass] 32.2 pg 27.0-32.0 [facility] Nucleated RBC/100 WBC (Bld) [Ratio] 0 % 0-5 [facility] MCHC Auto (RBC) [Mass/Vol]Or dered By: Dr. Trujillo on 10-11-2022 MCHC (RBC) [Mass/Vol] 33.5 g/dL 32-36 [facility] No Panel InformationOrdered By: Dr. Trujillo on 10-11-2022 Anti-Nuclear Antibody Screen Negative Negative [facility] Comment on above: Performed at: [address] [id number] Director: Baldo Jauregui PhD, Phone: [phone] Estimated GFR (MDRD) Amer 94 mL/min >60 [facility] Comment on above: GFR Calc Estimated GFR (MDRD) Non-Af Amer 78 mL/min >60 [facility] Comment on above: Non- GFR Calc Thyroid Stimulating Hormone (TSH) 2.28 uIU/mL 0.358-3.74 [facility] Platelets bldOrdered By: Dr. Trujillo on 10-11-2022 Platelets (Bld) [#/Vol] 249 10*3/uL 150-450 [facility] Serum or plasma albumin todd urement (mass/volume)Ordered By: Dr. Trujillo on 10-11-2022 Albumin [Mass/Vol] 4.0 g/dL 3.2-5.0 [facility] Serum or plasma albumin/glob ulin mass ratioOrdered By: Dr. Trujillo on 10-11-2022 Albumin/Globulin [Mass ratio] 1.3 {ratio} 0.9-2.4 [facility] Serum or plasma calcium todd urement (mass/volume)Ordered By: Dr. Trujillo on 10-11-2022 Calcium [Mass/Vol] 9.2 mg/dL 8.5-10.1 [facility] Serum or plasma cholesterol in HDL measurement (mass/volume)Ordered By: Chris Pineda on 10-11-2022 Cholesterol in HDL [Mass/Vol] 51 mg/dL >40 [facility] Comment on above: The drugs N-Acetylcy steine and Metamizole may falsely depress this assay. Reference Range HDL <40 mg/dL Low HDL Cholesterol HDL >or= 60 mg/dL High HDL Cholesterol Serum or plasma cholesterol in VLDL measurement (mass/volume)Ordered By: Chris Pineda on 10-11-2022 Cholesterol in VLDL [Mass/Vol] 15 mg/dL 5-40 [facility] Serum or plasma creatinine m easurement (mass/volume)Ordered By: Dr. Trujillo on 10-11-2022 Creatinine [Mass/Vol] 1.01 mg/dL 0.70-1.30 [facility] Comment on above: The validity of the calculated GFR & GFRAA in patients over 70 years has not been determined. Clinical correlation is essential. Serum or plasma low density lipoprotein (LDL) cholesterol measurement (mass/volume)Ordered By: Chris Pineda on 10-11-2022 Cholesterol in LDL [Mass/Vol] 62 mg/dL 0-130 [facility] Serum or plasma urea nitroge n measurement (mass/volume)Ordered By: Dr. Trujillo on 10-11-2022 Urea nitrogen [Mass/Vol] 19 mg/dL 7-18 [facility] Thin prep Papanicolaou smear with manual screeningOrdered By: Dr. Trujillo on 10-11-2022 Thin prep Papanicolaou smear with manual screening 14 U/L 15-37 [facility] Thin prep Papanicolaou smear with manual screening 6 5-15 [facility] No Panel InformationOrdered By: Dr. Valladares on 07-15-2022 Prostate Specific Antigen Screen 1.72 ng/mL 0.00-4.00 [facility] Comment on above: This test was perfor med using the TPSA assay method for theAnulex chemistry system. Values obtained with differentassay methods cannot be used interchangably.When changing PSA assays in the course of monitoring apatient, additional sequential testing should be carriedout to confirm baseline values. Absolute lymphocyte countOrd ered By: Dr. Azevedo on 05-16-2022 Lymphocytes Auto (Unsp spec) [#/Vol] 2.24 10*3/uL 0.83-4.51 [facility] Basophil percentageOrdered B y: Dr. Azevedo on 05-16-2022 Basophils/100 WBC (Bld) 0.8 % 0-1 [facility] Chloride [Moles/Vol] 107 mmol/L 98-107 [facility] Eosinophils/100 WBC (Bld) 3.2 % 0-5 [facility] Glucose [Mass/Vol] 100 mg/dL 74-106 [facility] Comment on above: Fasting Glucose resu lt from 100 to 125 mg/dL suggests IMPAIRED HOMEOSTASIS per A.D.A. criteria. Neutrophils (Bld) [#/Vol] 6.2 10*3/uL 2.0-7.7 [facility] Neutrophils/100 WBC (Bld) 64.4 % 47-70 [facility] Potassium [Moles/Vol] 4.2 mmol/L 3.5-5.1 [facility] Sodium [Moles/Vol] 141 mmol/L 136-145 [facility] WBC (Bld) [#/Vol] 9.6 10*3/uL 4.4-11.0 [facility] Blood erythrocytes count (nu mber/volume)Ordered By: Dr. Azevedo on 05-16-2022 RBC (Bld) [#/Vol] 4.92 10*6/uL 4.6-6.2 [facility] Blood hemoglobin measurement (mass/volume)Ordered By: Dr. Azevedo on 05-16-2022 Hemoglobin (Bld) [Mass/Vol] 15.9 g/dL 13.0-16.5 [facility] Blood lymphocytes/100 leukoc ytesOrdered By: Dr. Azevedo on 05-16-2022 Lymphocytes/100 WBC (Bld) 23.3 % 19-41 [facility] Blood monocytes/100 leukocyt esOrdered By: Dr. Azevedo on 05-16-2022 Monocytes/100 WBC (Bld) 7.9 % 0-10 [facility] Blood platelet mean volumeOr dered By: Dr. Azevedo on 05-16-2022 Platelet mean volume (Bld) [Entitic vol] 10.3 fL 6.2-12.0 [facility] Determination of erythrocyte mean corpuscular volume (MCV)Ordered By: Dr. Azevedo on 05-16-2022 MCV (RBC) [Entitic vol] 95.7 fL 80-94 [facility] Hematocrit Auto (Bld) [Volum e fraction]Ordered By: Dr. Azevedo on 05-16-2022 Hematocrit (Bld) [Volume fraction] 47.1 % 40-54 [facility] - Chemistry and C hemistry - challengeOrdered By: Dr. Azevedo on 05-16-2022 CO2 [Moles/Vol] 30.0 mmol/L 21.0-32.0 [facility] Urea nitrogen/Creatinine [Mass ratio] 17.3 mg/mg 10-20 [facility] - Hematology and Cell countsOrdered By: Dr. Azevedo on 05-16-2022 Erythrocyte distribution width (RBC) [Entitic vol] 46.1 fL 35.1-43.9 [facility] Erythrocyte distribution width (RBC) [Ratio] 13.2 % 11.6-14.6 [facility] Immature granulocytes/100 WBC (Bld) 0.400 % 0.0-0.9 [facility] Comment on above: IG% - Immature Granu locytes (promyelocytes, myelocytes and metamyelocytes) > 1% indicates that a LEFT SHIFT is Present. MCH (RBC) [Entitic mass] 32.3 pg 27.0-32.0 [facility] Nucleated RBC/100 WBC (Bld) [Ratio] 0 % 0-5 [facility] MCHC Auto (RBC) [Mass/Vol]Or dered By: Dr. Azevedo on 05-16-2022 MCHC (RBC) [Mass/Vol] 33.8 g/dL 32-36 [facility] No Panel InformationOrdered By: Dr. Azevedo on 05-16-2022 Estimated GFR (MDRD) Amer 86 mL/min >60 [facility] Comment on above: GFR Calc Estimated GFR (MDRD) Non-Af Amer 71 mL/min >60 [facility] Comment on above: Non- GFR Calc Platelets bldOrdered By: Dr. Azevedo on 05-16-2022 Platelets (Bld) [#/Vol] 295 10*3/uL 150-450 [facility] Serum or plasma calcium todd urement (mass/volume)Ordered By: Dr. Azevedo on 05-16-2022 Calcium [Mass/Vol] 9.3 mg/dL 8.5-10.1 [facility] Serum or plasma creatinine m easurement (mass/volume)Ordered By: Dr. Azevedo on 05-16-2022 Creatinine [Mass/Vol] 1.10 mg/dL 0.70-1.30 [facility] Comment on above: The validity of the calculated GFR & GFRAA in patients over 70 years has not been determined. Clinical correlation is essential. Serum or plasma urea nitroge n measurement (mass/volume)Ordered By: Dr. Azevedo on 05-16-2022 Urea nitrogen [Mass/Vol] 19 mg/dL 7-18 [facility] Thin prep Papanicolaou smear with manual screeningOrdered By: Dr. Azevedo on 05-16-2022 Thin prep Papanicolaou smear with manual screening 4 5-15 [facility] Basophil percentageon 06-28- 2022 Bilirubin [Mass/Vol] 0.40 mg/dL 0.20-1.00 [facility] Work Phone: Comment on above: For patients on eltr ombopag therapy, use of Dimension Armbrust TBIL is not recommended. Chloride [Moles/Vol] 103 mmol/L 98-107 [facility] Work Phone: Glucose [Mass/Vol] 92 mg/dL 74-106 [facility] Work Phone: [phone] Potassium [Moles/Vol] 4.7 mmol/L 3.5-5.1 [facility] Work Phone: Protein [Mass/Vol] 7.5 g/dL 6.4-8.2 [facility] Work Phone: Sodium [Moles/Vol] 138 mmol/L 136-145 [facility] Work Phone: Laboratory - Chemistry and C hemistry - challengeon 12-04-2021 ALP [Catalytic activity/Vol] 80 U/L 45-117 [facility] Work Phone: ALT [Catalytic activity/Vol] 28 U/L 16-61 [facility] Work Phone: CO2 [Moles/Vol] 30.0 mmol/L 21.0-32.0 [facility] Work Phone: Cobalamin (Vitamin B12) [Mass/Vol] 545 pg/mL 211-911 [facility] Work Phone: Free T4 [Mass/Vol] 0.99 ng/dL 0.76-1.46 [facility] Work Phone: Globulin (S) [Mass/Vol] 3.2 g/dL 2.2-4.2 [facility] Work Phone: Urea nitrogen/Creatinine [Mass ratio] 17.7 mg/mg 10-20 [facility] Work Phone: No Panel Informationon 12-04 Estimated GFR (MDRD) Amer 100 mL/min >60 [facility] Work Phone: Comment on above: GFR Calc Estimated GFR (MDRD) Non-Af Amer 83 mL/min >60 [facility] Work Phone: Comment on above: Non- GFR Calc Vitamin D 25-Hydroxy 59.1 ng/mL [facility] Work Phone: Comment on above: Vitamin D 25(OH) Sta tus Range Deficiency <20 ng/mL (50nmol/L) Insufficiency 20 - 30 ng/mL (50 - 75 nmol/L) Sufficiency 30 - 100 ng/mL (75 - 250 nmol/L) Toxicity >100 ng/mL (>250 nmol/L) Serum or plasma albumin todd urement (mass/volume)on 12-04-2021 Albumin [Mass/Vol] 4.3 g/dL 3.2-5.0 [facility] Work Phone: Serum or plasma albumin/glob ulin mass ratioon 12-04-2021 Albumin/Globulin [Mass ratio] 1.3 {ratio} 0.9-2.4 [facility] Work Phone: Serum or plasma calcium todd urement (mass/volume)on 12-04-2021 Calcium [Mass/Vol] 9.4 mg/dL 8.5-10.1 [facility] Work Phone: Serum or plasma creatinine m easurement (mass/volume)on 12-04-2021 Creatinine [Mass/Vol] 0.96 mg/dL 0.70-1.30 [facility] Work Phone: Comment on above: The validity of the calculated GFR & GFRAA in patients over 70 years has not been determined. Clinical correlation is essential. Serum or plasma urea nitroge n measurement (mass/volume)on 12-04-2021 Urea nitrogen [Mass/Vol] 17 mg/dL 7-18 [facility] Work Phone: Thin prep Papanicolaou smear with manual screeningon 12-04-2021 Thin prep Papanicolaou smear with manual screening 21 U/L 15-37 [facility] Work Phone: Thin prep Papanicolaou smear with manual screening 5 5-15 [facility] Work Phone: Absolute lymphocyte counton 11-28-2021 Lymphocytes Auto (Unsp spec) [#/Vol] 2.17 10*3/uL 0.83-4.51 [facility] Work Phone: Basophil percentageon 2021 Basophils/100 WBC (Bld) 0.7 % 0-1 [facility] Work Phone: Bilirubin [Mass/Vol] 0.60 mg/dL 0.20-1.00 [facility] Work Phone: Comment on above: For patients on eltr ombopag therapy, use of Dimension Armbrust TBIL is not recommended. Chloride [Moles/Vol] 105 mmol/L 98-107 [facility] Work Phone: Cholesterol [Mass/Vol] 119 mg/dL <200 [facility] Work Phone: Comment on above: <200 mg/dL Desirable 200-240 mg/dL Borderline >240 mg/dL High Risk Eosinophils/100 WBC (Bld) 3.2 % 0-5 [facility] Work Phone: Glucose [Mass/Vol] 91 mg/dL 74-106 [facility] Work Phone: Neutrophils (Bld) [#/Vol] 5.4 10*3/uL 2.0-7.7 [facility] Work Phone: Neutrophils/100 WBC (Bld) 62.2 % 47-70 [facility] Work Phone: Potassium [Moles/Vol] 4.4 mmol/L 3.5-5.1 [facility] Work Phone: Protein [Mass/Vol] 7.0 g/dL 6.4-8.2 [facility] Work Phone: Sodium [Moles/Vol] 139 mmol/L 136-145 [facility] Work Phone: Triglyceride [Mass/Vol] 89 mg/dL <199 [facility] Work Phone: Comment on above: The drugs N-Acetylcy steine and Metamizole may falsely depress this assay.Serum Triglycerides Reference Interval Normal <150 mg/dL Borderline high 150 - 199 mg/dL High 200 - 499 mg/dL Very High > or = 500 mg/dL WBC (Bld) [#/Vol] 8.7 10*3/uL 4.4-11.0 [facility] Work Phone: Blood erythrocytes count (nu mber/volume)on 11-28-2021 RBC (Bld) [#/Vol] 4.75 10*6/uL 4.6-6.2 [facility] Work Phone: Blood hemoglobin measurement (mass/volume)on 11-28-2021 Hemoglobin (Bld) [Mass/Vol] 15.4 g/dL 13.0-16.5 [facility] Work Phone: Blood lymphocytes/100 leukoc yteson 11-28-2021 Lymphocytes/100 WBC (Bld) 24.9 % 19-41 [facility] Work Phone: Blood monocytes/100 leukocyt eson 11-28-2021 Monocytes/100 WBC (Bld) 8.5 % 0-10 [facility] Work Phone: Blood platelet mean volumeon 11-28-2021 Platelet mean volume (Bld) [Entitic vol] 10.1 fL 6.2-12.0 [facility] Work Phone: Determination of erythrocyte mean corpuscular volume (MCV)on 11-28-2021 MCV (RBC) [Entitic vol] 95.6 fL 80-94 [facility] Work Phone: Direct bilirubinon 2 Bilirubin.direct [Mass/Vol] 0.19 mg/dL 0.00-0.30 [facility] Work Phone: Hematocrit Auto (Bld) [Volum e fraction]on 11-28-2021 Hematocrit (Bld) [Volume fraction] 45.4 % 40-54 [facility] Work Phone: Laboratory - Chemistry and C hemistry - challengeon 11-28-2021 ALP [Catalytic activity/Vol] 79 U/L 45-117 [facility] Work Phone: ALT [Catalytic activity/Vol] 25 U/L 16-61 [facility] Work Phone: [phone] CO2 [Moles/Vol] 30.0 mmol/L 21.0-32.0 [facility] Work Phone: Globulin (S) [Mass/Vol] 3.0 g/dL 2.2-4.2 [facility] Work Phone: Urea nitrogen/Creatinine [Mass ratio] 23.5 mg/mg 10-20 [facility] Work Phone: Laboratory - Hematology and Cell countson 11-28-2021 Erythrocyte distribution width (RBC) [Entitic vol] 44.9 fL 35.1-43.9 [facility] Work Phone: Erythrocyte distribution width (RBC) [Ratio] 12.8 % 11.6-14.6 [facility] Work Phone: Immature granulocytes/100 WBC (Bld) 0.500 % 0.0-0.9 [facility] Work Phone: Comment on above: IG% - Immature Granu locytes (promyelocytes, myelocytes and metamyelocytes) > 1% indicates that a LEFT SHIFT is Present. MCH (RBC) [Entitic mass] 32.4 pg 27.0-32.0 [facility] Work Phone: Nucleated RBC/100 WBC (Bld) [Ratio] 0 % 0-5 [facility] Work Phone: MCHC Auto (RBC) [Mass/Vol]on 11-28-2021 MCHC (RBC) [Mass/Vol] 33.9 g/dL 32-36 [facility] Work Phone: No Panel Informationon 11-28 Estimated GFR (MDRD) Amer 103 mL/min >60 [facility] Work Phone: Comment on above: GFR Calc Estimated GFR (MDRD) Non-Af Amer 85 mL/min >60 [facility] Work Phone: Comment on above: Non- GFR Calc Thyroid Stimulating Hormone (TSH) 2.66 uIU/mL 0.358-3.74 [facility] Work Phone: Platelets bldon 11-28-2021 Platelets (Bld) [#/Vol] 243 10*3/uL 150-450 [facility] Work Phone: Serum or plasma albumin todd urement (mass/volume)on 11-28-2021 Albumin [Mass/Vol] 4.0 g/dL 3.2-5.0 [facility] Work Phone: Serum or plasma calcium todd urement (mass/volume)on 11-28-2021 Calcium [Mass/Vol] 9.0 mg/dL 8.5-10.1 [facility] Work Phone: Serum or plasma cholesterol in HDL measurement (mass/volume)on 11-28-2021 Cholesterol in HDL [Mass/Vol] 43 mg/dL >40 [facility] Work Phone: Comment on above: The drugs N-Acetylcy steine and Metamizole may falsely depress this assay. Reference Range HDL <40 mg/dL Low HDL Cholesterol HDL >or= 60 mg/dL High HDL Cholesterol Serum or plasma cholesterol in VLDL measurement (mass/volume)on 11-28-2021 Cholesterol in VLDL [Mass/Vol] 18 mg/dL 5-40 [facility] Work Phone: Serum or plasma creatinine m easurement (mass/volume)on 11-28-2021 Creatinine [Mass/Vol] 0.94 mg/dL 0.70-1.30 [facility] Work Phone: Comment on above: The validity of the calculated GFR & GFRAA in patients over 70 years has not been determined. Clinical correlation is essential. Serum or plasma low density lipoprotein (LDL) cholesterol measurement (mass/volume)on 11-28-2021 Cholesterol in LDL [Mass/Vol] 58 mg/dL 0-130 [facility] Work Phone: Serum or plasma urea nitroge n measurement (mass/volume)on 11-28-2021 Urea nitrogen [Mass/Vol] 22 mg/dL 7-18 [facility] Work Phone: Thin prep Papanicolaou smear with manual screeningon 11-28-2021 Thin prep Papanicolaou smear with manual screening 19 U/L 15-37 [facility] Work Phone: Thin prep Papanicolaou smear with manual screening 4 5-15 [facility] Work Phone: Absolute lymphocyte counton 07-27-2021 Lymphocytes Auto (Unsp spec) [#/Vol] 2.44 10*3/uL 0.83-4.51 [facility] Work Phone: Basophil percentageon 2021 Basophils/100 WBC (Bld) 0.7 % 0-1 [facility] Work Phone: Bilirubin [Mass/Vol] 0.50 mg/dL 0.20-1.00 [facility] Work Phone: Comment on above: For patients on eltr ombopag therapy, use of Dimension Armbrust TBIL is not recommended. Chloride [Moles/Vol] 108 mmol/L 98-107 [facility] Work Phone: Eosinophils/100 WBC (Bld) 5.3 % 0-5 [facility] Work Phone: Glucose [Mass/Vol] 82 mg/dL 74-106 [facility] Work Phone: Neutrophils (Bld) [#/Vol] 4.4 10*3/uL 2.0-7.7 [facility] Work Phone: Neutrophils/100 WBC (Bld) 55.0 % 47-70 [facility] Work Phone: Potassium [Moles/Vol] 3.8 mmol/L 3.5-5.[address] [facility] Work Phone: Protein [Mass/Vol] 6.5 g/dL 6.4-8.2 [facility] Work [facility]: Sodium [Moles/Vol] 139 mmol/L 136-145 [facility] Work Phone: WBC (Bld) [#/Vol] 8.1 10*3/uL 4.4-11.0 [facility] Work Phone: Blood erythrocytes count (nu mber/volume)on 07-27-2021 RBC (Bld) [#/Vol] 4.62 10*6/uL 4.6-6.2 [facility]: Blood hemoglobin measurement (mass/volume)on 07-27-2021 Hemoglobin (Bld) [Mass/Vol] 14.4 g/dL 13.0-16.5 [facility] Work Phone: Blood lymphocytes/100 leukoc yteson 07-27-2021 Lymphocytes/100 WBC (Bld) 30.3 % 19-41 [facility] Work Phone: Blood monocytes/100 leukocyt eson 07-27-2021 Monocytes/100 WBC (Bld) 8.2 % 0-10 [facility] Work Phone: Blood platelet mean volumeon 07-27-2021 Platelet mean volume (Bld) [Entitic vol] 10.3 fL 6.2-12.0 [facility] Work Phone: Determination of erythrocyte mean corpuscular volume (MCV)on 07-27-2021 MCV (RBC) [Entitic vol] 92.9 fL 80-94 [facility] Work Phone: Hematocrit Auto (Bld) [Volum e fraction]on 07-27-2021 Hematocrit (Bld) [Volume fraction] 42.9 % 40-54 [facility] Work Phone: Laboratory - Chemistry and C hemistry - challengeon 07-27-2021 ALP [Catalytic activity/Vol] 77 U/L 45-117 [facility] Work Phone: [phone] ALT [Catalytic activity/Vol] 22 U/L 16-61 [facility] Work Phone: [phone] CO2 [Moles/Vol] 27.0 mmol/L 21.0-32.0 [facility] Work Phone: [phone] Globulin (S) [Mass/Vol] 3.0 g/dL 2.2-4.2 [facility] Work Phone: [phone] Urea nitrogen/Creatinine [Mass ratio] 20.7 mg/mg 10-20 [facility] Work Phone: Laboratory - Hematology and Cell countson 07-27-2021 Erythrocyte distribution width (RBC) [Entitic vol] 44.6 fL 35.1-43.9 [facility] Work Phone: [phone] Erythrocyte distribution width (RBC) [Ratio] 12.9 % 11.6-14.6 [facility] Work Phone: [phone] Immature granulocytes/100 WBC (Bld) 0.500 % 0.0-0.9 [facility] Work Phone: Comment on above: IG% - Immature Granu locytes (promyelocytes, myelocytes and metamyelocytes) > 1% indicates that a LEFT SHIFT is Present. MCH (RBC) [Entitic mass] 31.2 pg 27.0-32.0 [facility] Work Phone: Nucleated RBC/100 WBC (Bld) [Ratio] 0 % 0-5 [facility] Work Phone: [phone] MCHC Auto (RBC) [Mass/Vol]on 07-27-2021 MCHC (RBC) [Mass/Vol] 33.6 g/dL 32-[address] [facility] Work Phone: No Panel Informationon 07-27 Estimated Creatinine Clearance Calc 102.75 ml/min [facility] Work Phone: Estimated GFR (MDRD) Amer 120 mL/min >60 [facility] Work Phone: Comment on above: GFR Calc Estimated GFR (MDRD) Non-Af Amer 99 mL/min >60 [facility] Work Phone: Comment on above: Non- GFR Calc Platelets bldon 07-27-2021 Platelets (Bld) [#/Vol] 248 10*3/uL 150-450 [facility] Work Phone: Serum or plasma albumin todd urement (mass/volume)on 07-27-2021 Albumin [Mass/Vol] 3.5 g/dL 3.2-5.0 [facility] Work Phone: Serum or plasma albumin/glob ulin mass ratioon 07-27-2021 Albumin/Globulin [Mass ratio] 1.2 {ratio} 0.9-2.4 [facility] Work Phone: Serum or plasma calcium todd urement (mass/volume)on 07-27-2021 Calcium [Mass/Vol] 8.6 mg/dL 8.5-10.1 [facility] Work Phone: Serum or plasma creatinine m easurement (mass/volume)on 07-27-2021 Creatinine [Mass/Vol] 0.82 mg/dL 0.70-1.30 [facility] Work Phone: Comment on above: The validity of the calculated GFR & GFRAA in patients over 70 years has not been determined. Clinical correlation is essential. Serum or plasma urea nitroge n measurement (mass/volume)on 07-27-2021 Urea nitrogen [Mass/Vol] 17 mg/dL -18 [facility] Work Phone: Thin prep Papanicolaou smear with manual screeningon 07-27-2021 Thin prep Papanicolaou smear with manual screening 16 U/L 15-37 [facility] Work Phone: Thin prep Papanicolaou smear with manual screening 4 5-15 [facility] Work Phone: No Panel Informationon 07-26 Troponin I High Sensitivity 6 pg/mL 3.0-78.0 [facility] Work Phone: Comment on above: Please Note: New Fatimah t Units and Gender Specific Reference Ranges. For more information see Policy Stat Procedure Armbrust High Sensitivity Troponin (TNIH) and attachments. D-Dimer Quantitative (PE/DVT) 0.30 FEU/ug/m 0.27-0.49 [facility] Work Phone: Comment on above: NORMAL D-Dimer level (<0.50) indicates no DVT or PE. Whole blood hemoglobin A1c/t otal hemoglobin ratio (mass fraction)on 07-26-2021 HbA1c (Bld) [Mass fraction] 5.7 % 3.8-5.6 [facility] Work Phone: Comment on above: Normal < 5.7 % Predi abetic 5.7 - 6.4 % Diabetic >or= 6.5 % Please note range changes. EKGon 03-08-2019 Ordered by an unspecified provider. [facility] BMPon 03-06-2019 Anion gap [Moles/Vol] 12 mmol/L 10 - 2 0 mmol/L [facility] Calcium [Mass/Vol] 9.2 mg/dL 8.4 - 10. 2 mg/dL [facility] Chloride [Moles/Vol] 106 mmol/L 98 - 10 8 mmol/L [facility] Creatinine [Mass/Vol] 1.02 mg/dL 0.8 - 1.3 mg/dL [facility] GFR/1.73 sq M predicted among non-blacks MDRD (S/P/Bld) [Vol rate/Area] The eGFR should be used for monitoring renal function only and not for medication dosing. [facility] GFR/1.73 sq M.predicted CKD-EPI (S/P/Bld) [Vol rate/Area] 77 >=60 mL/min/1.73 m2 [facility] Glucose [Mass/Vol] 134 mg/dL High 65 - 99 mg/dL [facility] HCO3 [Moles/Vol] 27 mmol/L 21 - 32 mmol/L [facility] Potassium [Moles/Vol] 4.0 mmol/L 3.5 - 5.1 mmol/L [facility] Sodium [Moles/Vol] 141 mmol/L 135 - 145 mmol/L [facility] Urea nitrogen [Mass/Vol] 16 mg/dL 8 - 25 mg/dL [facility] Urea nitrogen/Creatinine [Mass ratio] 15.7 mg/mg [facility] CBC WITH AUTO DIFFERENTIALon 03-06-2019 Basophils (Bld) [#/Vol] 0.06 10*3/uL [facility] Basophils/100 WBC (Bld) 0.6 % [facility] Eosinophils (Bld) [#/Vol] 0.26 10*3/uL [facility] Eosinophils/100 WBC (Bld) 2.7 % [facility] Erythrocyte distribution width (RBC) [Entitic vol] 12.7 % 11.6 - 14.8 % [facility] Hematocrit (Bld) [Volume fraction] 43.5 % 41 - 53 % [facility] Hemoglobin (Bld) [Mass/Vol] 15.0 g/dL 13.5 - 17.5 g/dL [facility] Immature granulocytes (Bld) [#/Vol] 0.05 10*3/uL [facility] Immature granulocytes/100 WBC (Bld) 0.50 % [facility] Comment on above: The IG parameter is the percentage of metamyelocytes, myelocytes, and promyelocytes. Lymphocytes (Bld) [#/Vol] 1.89 10*3/uL [facility] Lymphocytes/100 WBC (Bld) 19.4 % [facility] MCH (RBC) [Entitic mass] 31.9 pg 26 - 34 pg [facility] MCHC (RBC) [Mass/Vol] 34.5 g/dL 31 - 37 g/dL [facility] MCV (RBC) [Entitic vol] 92.6 fL 80 - 100 fL [facility] Monocytes (Bld) [#/Vol] 0.63 10*3/uL [facility] Monocytes/100 WBC (Bld) 6.5 % [facility] Neutrophils (Bld) [#/Vol] 6.87 10*3/uL [facility] Neutrophils/100 WBC (Bld) 70.3 % [facility] Nucleated RBC (Bld) [#/Vol] 0.00 10*3/uL [facility] Nucleated RBC/100 WBC (Bld) [Ratio] 0.0 % [facility] Platelet mean volume (Bld) [Entitic vol] 10.5 fL 9 - 15.5 fL [facility] Platelets (Bld) [#/Vol] 256 10*3/uL [facility] RBC (Bld) [#/Vol] 4.70 10*6/uL [facility] ealth WBC (Bld) [#/Vol] 9.76 10*3/uL [facility] ealt ECG 12-LEADon 03-06-2019 Atrial Rate 76 BPM [facility] P [place] 71 degrees [facility] P-R Interval 144 ms [facility] Q-T Interval 386 ms [facility] QRS Duration 80 ms [facility] QTC Calculation (Bezet) 434 ms [facility] R [place] 78 degrees [facility] T [place] 78 degrees [facility] Ventricular Rate 76 BPM [facility] th ECG Cart Interpretation see physician note for interpretation. Poor data quality, interpretation may be adversely affected Normal sinus rhythm with sinus arrhythmia Normal ECG Confirmed by Angi Antonio ([id number]) on 03/06/2019 10:56:03 PM [facility] Otheron 03-06-2019 Extra Tube Hold for add-ons. [facility] Comment on above: Auto resulted. Interpretation and review of laboratory results Abnormal [facility] TROPONINon 03-06-2019 Interpretation and review of laboratory results Abnormal [facility] Troponin I.cardiac [Mass/Vol] 19 % <20% of Baseline Troponin [facility] Troponin I.cardiac [Mass/Vol] 62 ng/L Critically high <=45 [facility] Troponin I.cardiac [Mass/Vol] Probable non-acute cardiac injury or late presentation of acute injury. [facility] Troponin I.cardiac [Mass/Vol] 52 ng/L Critically high <=45 [facility] Troponin I.cardiac [Mass/Vol] Possible acute cardiac injury. [facility] XR CHEST AP/PA AND LATon Interface[facility] - 03/06/2019 5:40 PM EDT [...] suggest mild emphysema. [facility]/lab Workstation ID: [id number] [facility] EXAMINATION: XR CHES T AP/PA AND [...] of the shoulders. No acute osseous abnormality. [facility] No acute cardiopulmonary process. Persistent mild flattening of the hemidiaphragms suggest mild emphysema. [facility]/lab Workstation ID: [id number] [facility] XR CHEST AP/PA AND LAT EXAMINATION: [...] Mar 06, 2019 5:38:16 PM EDT Normal [facility] Comment on above: Order Comment: Injur y/Trauma or Illness?:Illness/Other How long have you had these symptoms (acute/chronic)?:Acute Reason for exam?:chest pain, hx of recent stents History of cancer?:u Surgeries, chemotherapy, or radiation?:u Type of Exam?:Initial Additional signs and symptoms?:na [facility] 08-07-2018 [facility] HNO ID: [id number] Author: Barbara Paulino) REYNOLD Lindsey Service: Radiology Author Type: Clinical Crop Scout Type: Allied Health Filed: 08/07/2018 1:55 PM [...] Tierney August 07, 2018 1:55 PM Normal [facility] APTTon 08-07-2018 aPTT Coag time (Bld) 27.9 s Normal 23.0-32.4 [facility] Comment on above: Result Comment: Unfr actionated [...] laboratory APTT reagent in use throughout the [facility]. Performed By: #### C BCDIF, PT, PTT, CMP #### [facility] Laboratory [address] [place] [address] CBC and Differentialon 08-07 Abs Baso 0.10 k/uL Normal <0.11 [facility] Comment on above: Performed By: #### C BCDIF, PT, PTT, CMP #### [facility] [address] [address] Abs Obion 0.90 k/uL High <0.87 [facility] Comment on above: Performed By: #### C BCDIF, PT, PTT, CMP #### [facility] [address] [address] Abs Neut 6.49 k/uL Normal 1.45-7.50 [facility] Comment on above: Performed By: #### C BCDIF, PT, PTT, CMP #### [facility] [address] [address] Basophils/100 WBC (Bld) 1.0 % Normal [facility] Comment on above: Performed By: #### C BCDIF, PT, PTT, CMP #### [facility] [address] [place] [address] Eosinophils #/vol (Bld) 0.31 10*3/uL Normal <0.46 [facility] Comment on above: Performed By: #### C BCDIF, PT, PTT, CMP #### [facility] [address] [place] [address] Eosinophils/100 WBC (Bld) 3.1 % Normal [facility] Comment on above: Performed By: #### C BCDIF, PT, PTT, CMP #### [facility] [address] [place] [address] Erythrocyte distribution width Ratio (RBC) 12.9 % Normal 11.5-15.0 [facility] Comment on above: Performed By: #### C BCDIF, PT, PTT, CMP #### [facility] [address] [place] [address] Hematocrit Volume Fraction (Bld) 48.9 % Normal 39.0-51.0 [facility] Comment on above: Performed By: #### C BCDIF, PT, PTT, CMP #### [facility] [address] [place] [address] Hemoglobin mass conc (Bld) 16.3 g/dL Normal 13.0-17.0 [facility] Comment on above: Performed By: #### C BCDIF, PT, PTT, CMP #### [facility] [address] [address] Lymphocytes #/vol (Bld) 2.24 10*3/uL Normal 1.00-4.00 [facility] Comment on above: Performed By: #### C BCDIF, PT, PTT, CMP #### [facility] [address] Lymphocytes/100 WBC (Bld) 22.3 % Normal [facility] Comment on above: Performed By: #### C BCDIF, PT, PTT, CMP #### [facility] [address] [address] MCH Entitic mass (RBC) 31.1 pG Normal 26.0-34.0 [facility] Comment on above: Performed By: #### C BCDIF, PT, PTT, CMP #### [facility] [address] [address] MCHC mass conc (RBC) 33.3 g/dL Normal 30.5-36.0 [facility] Comment on above: Performed By: #### C BCDIF, PT, PTT, CMP #### [facility] [address] [place] [address] MCV Entitic volume (RBC) 93.3 fL Normal 80.0-100.0 [facility] Comment on above: Performed By: #### C BCDIF, PT, PTT, CMP #### [facility] [address] [place] [address] Monocytes/100 WBC (Bld) 9.0 % Normal [facility] Comment on above: Performed By: #### C BCDIF, PT, PTT, CMP #### [facility] [address] [place] [address] Neutrophils/100 WBC (Bld) 64.6 % Normal [facility] Comment on above: Performed By: #### C BCDIF, PT, PTT, CMP #### [facility] [address] [id number] Platelet mean volume Entitic volume (Bld) 10.3 fL Normal 9.0-12.7 [facility] Comment on above: Performed By: #### C BCDIF, PT, PTT, CMP #### [facility] [address] [address] Platelets #/vol (Bld) 261 10*3/uL Normal 150-400 [facility] Comment on above: Performed By: #### C BCDIF, PT, PTT, CMP #### [facility] [address] [phone] RBC #/vol (Bld) 5.24 10*6/uL Normal 4.20-6.00 [facility] Comment on above: Performed By: #### C BCDIF, PT, PTT, CMP #### [facility] [address] [phone] WBC #/vol (Bld) 10.04 10*3/uL Normal 3.70-11.00 [facility] Comment on above: Performed By: #### C BCDIF, PT, PTT, CMP #### [facility] [address] [phone] CT ABD/PEL WO IVCONon 2018 CT ABD/PEL WO IVCON * * *Final Report* * * DATE OF EXAM: Aug 07 2018 1:54PM [facility] 0531 - CT ABD/PEL WO IVCON / [...] hernia Nonspecific gastric wall thickening Prostate enlargement [employer]: [facility] Transcribe Date/Time: Aug 07 2018 1:56P Dictated by : NADIA SHEA MD This examination was interpreted and the report reviewed and electronically signed by: NADIA SHEA MD on Aug 07 2018 2:34PM EST [id number] N Normal [facility] Comp Metabolic Panelon 08-07 Albumin mass conc 4.9 g/dL Normal 3.9-4.9 [facility] Comment on above: Performed By: #### C BCDIF, PT, PTT, CMP #### [facility] [address] [place] [address] ALP enzyme act/vol 84 U/L Normal 38-113 [facility] Comment on above: Performed By: #### C BCDIF, PT, PTT, CMP #### [facility] [address] [place], [place] [id number] ALT enzyme act/vol 16 U/L Normal 10-54 [facility] Comment on above: Performed By: #### C BCDIF, PT, PTT, CMP #### [facility] [address] [place] [address] Anion gap molar conc 9 mmol/L Normal 9-18 [facility] Comment on above: Performed By: #### C BCDIF, PT, PTT, CMP #### [facility] [facility] [address] [place] [address] AST enzyme act/vol 18 U/L Normal 14-40 [facility] Comment on above: Performed By: #### C BCDIF, PT, PTT, CMP #### [facility] [address] [place] [address] Bilirubin mass conc 0.6 mg/dL Normal 0.2-1.3 [facility] Comment on above: Performed By: #### C BCDIF, PT, PTT, CMP #### [facility] [address] [place] [address] Calcium mass conc 9.9 mg/dL Normal 8.5-10.2 [facility] Comment on above: Performed By: #### C BCDIF, PT, PTT, CMP #### [facility] [address] [place] [address] Chloride molar conc 101 mmol/L Normal 97-105 [facility] Comment on above: Performed By: #### C BCDIF, PT, PTT, CMP #### [facility] [address] [place] [address] CO2 molar conc 30 mmol/L Normal 22-30 [facility] Comment on above: Performed By: #### C BCDIF, PT, PTT, CMP #### [facility] [address] [place] [address] Creatinine mass conc 0.86 mg/dL Normal 0.73-1.22 [facility] Comment on above: Performed By: #### C BCDIF, PT, PTT, CMP #### [facility] [address] [place] [address] eGFR- Amer. >60 Normal [facility] Comment on above: Performed By: #### C BCDIF, PT, PTT, CMP #### [facility] [address] [place] [address] GFR/1.73 sq M predicted among non-blacks MDRD vol rate/area (S/P/Bld) mL/min/{1.73_m2} Normal [facility] Comment on above: Result Comment: eGFR [...] #### C BCDIF, PT, PTT, CMP #### [facility] [address] [place] [address] Glucose mass conc 99 mg/dL Normal 74-99 [facility] Comment on above: Result Comment: The [place] [employer] (ADA) provides guidance for cutoff [...] Standards of Medical Care in Diabetes 2016, [place] [employer]. Diabetes Care. 2016.39(Suppl 1). Performed By: #### C BCDIF, PT, PTT, CMP #### [facility] [address] [place] [address] Potassium molar conc 4.3 mmol/L Normal 3.7-5.1 [facility] Comment on above: Performed By: #### C BCDIF, PT, PTT, CMP #### [facility] [address] [place] [address] Protein mass conc 7.7 g/dL Normal 6.3-8.0 [facility] Comment on above: Performed By: #### C BCDIF, PT, PTT, CMP #### [facility] [address] [place] [address] Sodium molar conc 140 mmol/L Normal 136-144 [facility] Comment on above: Performed By: #### C BCDIF, PT, PTT, CMP #### [facility] [address] [place] [address] Urea nitrogen mass conc 20 mg/dL Normal 9-24 [facility] Comment on above: Performed By: #### C BCDIF, PT, PTT, CMP #### [facility] [address] [facility] [phone] ED NOTEon 08-07-2018 ED NOTE HNO ID: [id number] Author: Margaret (Rn) AMINATA Lin Service: Nursing Author Type: Registered Nurse Type: ED Notes Filed: 08/07/2018 1:19 PM Note Text: Pt presents to ED with c/o hematuria and clots since yesterday. Pt went to [place] for same thing last night and was told to follow up with a urologist. The urologist that was recommended is out of town and he says the clots are getting bigger and more frequent Normal [facility] ED PROV NOTEon 08-07-2018 Protein mass conc HNO ID: [id number] Author: Arcadio Hess) Suze Service: (none) Author Type: Physician Transportation Department Head Type: ED Provider Notes Filed: 08/07/2018 10:53 PM Note Text: ED Provider Note Patient Name: Jaron Mireles SERVICE DATE: 08/07/18 History Patient presents with: Hematuria: with clots 63-year-old male presents emergency Department with complaints of hematuria. States he was seen at [facility] yesterday and had his bladder irrigated. [...] pain. 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: CHARLIE Transcribe Date/Time: Aug 07 2018 1:56P [...] SIGNATURE: DARRYL Nieto (Pa) 08/07/18 2253 Normal [facility] Protimeon 08-07-2018 Prothrombin time (PT) Coag time (PPP) 10.1 s Normal 9.7-13.0 [facility] Comment on above: Performed By: #### C BCDIF, PT, PTT, CMP #### [facility] [address] [facility] [phone] Prothrombin time (PT) Coag time (PPP) 1.0 s Normal 0.9-1.3 [facility] Comment on above: Result Comment: Love min K Antagonist (VKA) Therapeutic Range: INR 2 to 3 (Target INR of 2.5) Note: For patients treated with VKA drugs, such as warfarin, the [place] [employer] 2012 Guideline recommends [...] #### C BCDIF, PT, PTT, CMP #### [facility] [address] [facility] [phone] Urinalysison 08-07-2018 Bilirubin, Urine Color interference, unable to perform assay. Critically abnormal Negative [facility] Comment on above: Result Comment: Sugg est correlation with clinical findings and serum bilirubin if clinically indicated. Performed By: #### U A, UAMIC #### [facility] [address] [place] [address] Clarity Nom (U) Turbid Critically abnormal Clear [facility] Comment on above: Performed By: #### U A, UAMIC #### [facility] [address] [place] [address] Color Nom (U) Red Critically abnormal Yellow [facility] Comment on above: Performed By: #### U A, UAMIC #### [facility] [address] [place] [address] Glucose Ql (U) Color interference, unable to perform assay. Critically abnormal Negative [facility] Comment on above: Performed By: #### U A, UAMIC #### [facility] [address] [place] [address] Hemoglobin/Blood,Ur Color interference, unable to perform assay. Critically abnormal Negative [facility] Comment on above: Performed By: #### U A, UAMIC #### [facility] [address] [place] [address] Ketones Ql (U) Color interference, unable to perform assay. Critically abnormal Negative [facility] Comment on above: Performed By: #### U A, UAMIC #### [facility] [address] [place] [address] Leukest Color interference, unable to perform assay. Critically abnormal Negative [facility] Comment on above: Performed By: #### U A, UAMIC #### [facility] [address] [place] [address] Nitrite Ql (U) Color interference, unable to perform assay. Critically abnormal Negative [facility] Comment on above: Performed By: #### U A, UAMIC #### [facility] [address] [place] [address] pH (Bld) Color interference, unable to perform assay. Normal 5.0-8.0 [facility] Comment on above: Performed By: #### U A, UAMIC #### [facility] [address] [place] [address] Protein mass conc (U) Color interference , unable to perform assay. Critically abnormal Negative [facility] Comment on above: Performed By: #### U A, UAMIC #### [facility] [address] [place] [address] Specific [place], Ur Color interference, unable to perform assay. Normal 1.001-1.029 [facility] Comment on above: Performed By: #### U A, UAMIC #### [facility] [address] [place] [address] Urobilinogen Qn (U) Color interference, unable to perform assay. Normal 0.2-1.0 [facility] Comment on above: Performed By: #### U A, UAMIC #### [facility] [address] [place] [address] Urine Cultureon 08-07-2018 Bacteria identified Cx Nom (U) Sp. Request/Comment: - Specimen received in preservative Culture Result - 50,000 - <100,000 CFU/ml Normal urogenital mary Normal [facility] Comment on above: Performed By: #### C BCDIF, PT, PTT, CMP #### [facility] [address] [place] [address] Urine Microscopic (FOR LAB U SE ONLY)on 08-07-2018 Bacteria LM.HPF #/area (Urine sed) Few Critically abnormal 0 [facility] Comment on above: Performed By: #### U A, UAMIC #### [facility] [address] [place] [address] Cast SEE COMMENT Normal 0 [facility] Comment on above: Result Comment: 0 Performed By: #### U A, UAMIC #### [facility] [address] [place] [address] RBC #/vol (U) Too numerous to count Critically abnormal 0-3 [facility] Comment on above: Performed By: #### U A, UAMIC #### [facility] [address] [place] [address] WBC #/vol (Bld) 10-30 Critically abnormal 0-5 [facility] Comment on above: Performed By: #### U A, UAMIC #### [facility] [address] [place] [address] CBC with Diffon 05-30-2017 Abs. Basophil 0.00 k/uL Normal 0.0-0.2 [facility] Comment on above: Result Comment: Perf ormed at [facility] [address] [place] [address] Performed By: #### Светлана FAST, CDP, LIPR, MG, TSHX, VD25 ####[facility] [place] [address] Abs.Neutrophil (Seg) 5.80 k/uL Normal 2.1-6.5 [facility] Comment on above: Performed By: #### Светлана FAST, CDP, LIPR, MG, TSHX, VD25 ####[place] [address] [facility] [place] [address] Auto Diff Performed YES Normal [facility] Comment on above: Performed By: #### Светлана FAST, CDP, LIPR, MG, TSHX, VD25 ####[place] [id number] [place] [address] Basophils/100 WBC Auto (Bld) 0 % Normal 0-2 [facility] Comment on above: Performed By: #### Светлана FAST, CDP, LIPR, MG, TSHX, VD25 ####[place] [address] [facility] [place] [address] Eosinophils 0.60 10*3/uL High 0.0-0.4 [facility] Comment on above: Performed By: #### Светлана FAST, CDP, LIPR, MG, TSHX, VD25 ####[place] [address] [facility] [place] [address] Eosinophils/100 leukocytes 6 % High 0-5 [facility] Comment on above: Performed By: #### Z FAST, CDP, LIPR, MG, TSHX, VD25 ####[place] [address] [facility] [place] [address] Erythrocyte distribution width Auto Ratio (RBC) 13.4 % Normal 12.1-15.2 [facility] Comment on above: Performed By: #### Светлана FAST, CDP, LIPR, MG, TSHX, VD25 ####[facility] [place] [address] Erythrocytes (RBC) 5.24 10*6/uL Normal 4.5-5.9 [facility] Comment on above: Performed By: #### Z FAST, CDP, LIPR, MG, TSHX, VD25 ####[facility] [place] [address] Hematocrit (HCT) 48.8 % Normal 41-53 [facility] Comment on above: Performed By: #### Светлана FAST, CDP, LIPR, MG, TSHX, VD25 ####[facility] [place] [address] Hemoglobin mass conc (Bld) 16.3 g/dL Normal 13.5-17.5 [facility] Comment on above: Performed By: #### Светлана FAST, CDP, LIPR, MG, TSHX, VD25 ####[place] [id number] [place] [address] Lymphocytes 2.00 10*3/uL Normal 1.0-4.8 [facility] Comment on above: Performed By: #### Светлана FAST, CDP, LIPR, MG, TSHX, VD25 ####[facility] [place] [address] Lymphocytes/100 leukocytes 22 % Normal 13-44 [facility] Comment on above: Performed By: #### Z FAST, CDP, LIPR, MG, TSHX, VD25 ####[facility] [place] [address] MCH 31.1 pg Normal 26-34 [facility] Comment on above: Performed By: #### Z FAST, CDP, LIPR, MG, TSHX, VD25 ####[facility] [place] [address] MCHC mass conc (RBC) 33.4 g/dL Normal 31-37 [facility] Comment on above: Performed By: #### Z FAST, CDP, LIPR, MG, TSHX, VD25 ####[facility] [id number] MCV 93.2 fL Normal 80-100 [facility] Comment on above: Performed By: #### Светлана FAST, CDP, LIPR, MG, TSHX, VD25 ####[facility] [place] [address] Monocytes 0.70 10*3/uL Normal 0.0-1.0 [facility] Comment on above: Performed By: #### Светлана FAST, CDP, LIPR, MG, TSHX, VD25 ####[place] [address] [place] [address] Monocytes/100 leukocytes 8 % Normal 5-9 [facility] Comment on above: Performed By: #### Светлана FAST, CDP, LIPR, MG, TSHX, VD25 ####[facility] [place] [address] Neutrophil (Seg) 64 % Normal 39-75 [facility] Comment on above: Performed By: #### Светлана FAST, CDP, LIPR, MG, TSHX, VD25 ####[facility] [place] [address] Platelets 256 10*3/uL Normal 140-450 [facility] Comment on above: Performed By: #### Z FAST, CDP, LIPR, MG, TSHX, VD25 ####[facility] [id number] WBC (Leukocytes) 9.0 10*3/uL Normal 3.5-11.[address] [facility] Comment on above: Performed By: #### Светлана FAST, CDP, LIPR, MG, TSHX, VD25 ####[facility] [place] [address] Erythrocyte morphology NOT REPORTED Normal [facility] Comment on above: Performed By: #### Z FAST, CDP, LIPR, MG, TSHX, VD25 ####[facility] [place] [address] Granulocytes/100 WBC (Bld) NOT REPORTED Normal 0.00-0.30 [facility] Comment on above: Performed By: #### Z FAST, CDP, LIPR, MG, TSHX, VD25 ####[facility] [place] [address] Immature granulocytes #/vol (Bld) NOT REPORTED Normal 0 [facility] Comment on above: Performed By: #### Светлана FAST, CDP, LIPR, MG, TSHX, VD25 ####[facility] [place] [address] Platelet mean volume (PMV) NOT REPORTED Normal 6.0-12.0 [facility] Comment on above: Performed By: #### Светлана FAST, CDP, LIPR, MG, TSHX, VD25 ####[facility] [place] [address] Platelets NOT REPORTED Normal [facility] Comment on above: Performed By: #### Светлана FAST, CDP, LIPR, MG, TSHX, VD25 ####[facility] [place] [address] WBC Morphology NOT REPORTED Normal [facility] Comment on above: Performed By: #### Z FAST, CDP, LIPR, MG, TSHX, VD25 ####[facility] [place] [address] Lipid Profileon 05-30-2017 Cholesterol 254 mg/dL High <200 [facility] Comment on above: Result Comment: Chol esterol Guidelines: <200 Desirable 200-240 Borderline >240 Undesirable Performed By: #### Z FAST, CDP, LIPR, MG, TSHX, VD25 ####[facility] [place] [address] Cholesterol to HDL Ratio 4.9 {ratio} Normal <5 [facility] Comment on above: Performed By: #### Z FAST, CDP, LIPR, MG, TSHX, VD25 ####[facility] [place] [address] HDL Cholesterol 52 mg/dL Normal >40 [facility] Comment on above: Result Comment: HDL Guidelines: <40 Undesirable 40-59 Borderline >59 Desirable Performed By: #### Z FAST, CDP, LIPR, MG, TSHX, VD25 ####[place] [address] [place] [address] LDL Cholesterol 175 mg/dL High 0-130 [facility] Comment on above: Result Comment: LDL Guidelines: <100 Desirable 100-129 Near to/above Desirable 130-159 Borderline >159 UndesirableDirect (measured) LDL and calculated LDL are not interchangeable tests. Performed By: #### Z FAST, CDP, LIPR, MG, TSHX, VD25 ####[place] [address] [place] [address] Triglyceride 136 mg/dL Normal <150 [facility] Comment on above: Result Comment: Trig lyceride Guidelines: <150 Desirable 150- 199 Borderline 200-499 High >499 Very high Based on AHA Guidelines for fasting triglyceride, March 2012.Performed at [facility] [address] [place] [address] Performed By: #### Z FAST, CDP, LIPR, MG, TSHX, VD25 ####[place] [address] [place] [address] Cholesterol in VLDL mass conc NOT REPORTED Normal 1-30 [facility] Comment on above: Performed By: #### Z FAST, CDP, LIPR, MG, TSHX, VD25 ####[facility], [place] [id number] Magnesiumon 05-30-2017 Magnesium 2.3 mg/dL Normal 1.6-2.6 [facility] Comment on above: Result Comment: Perf ormed at [facility] [address] [place], [place] [id number] (205) Performed By: #### Z FAST, CDP, LIPR, MG, TSHX, VD25 ####[facility] [place] [phone] Patient fasting?on 7 Patient fasting? YES Normal [facility] Comment on above: Result Comment: Perf ormed at [facility] [address] [place] [address] [phone] Performed By: #### Z FAST, CDP, LIPR, MG, TSHX, VD25 ####[place] [address] [facility] [place] [phone] TSH w/reflex to FT4on 2016 Thyroid stimulating hormone (TSH) 3.87 m[IU]/L Normal 0.30-5.00 [facility] Comment on above: Result Comment: Perf ormed at [facility] [address] [place] [address] (201) Performed By: #### Z FAST, CDP, LIPR, MG, TSHX, VD25 ####[place] [address] [facility], [place] [id number] Vitamin D 25 OHon 05-30-2017 Vitamin D 25 OH 35.8 ng/mL Normal 30.0-100.0 [facility] Comment on above: Result Comment: Refe rence Range:Vitamin D status Range Deficiency <20 ng/mL Mild Deficiency 20-30 ng/mL Sufficiency 30-100 ng/mL Toxicity >100 ng/mLPerformed at [facility] [address] [place] [address] (311) Performed By: #### Z FAST, CDP, LIPR, MG, TSHX, VD25 ####[facility] [place] [address] XR CHEST STANDARD TWO VWon 1 07-31-2016 XR CHEST STANDARD TWO VW TWO-VIEW CHESTREASON FOR STUDY: History of cardiac disease, follow-up evaluation.COMPARISON : None.REPORT: Trachea, mediastinum, and heart size are unremarkable. The lungs are clear and well aerated. No effusion or pneumothorax or nodules noted. Diaphragm and bony elements are intact.IMPRESSION: Nonacute two-view chest.Interpreted by:Octavio Jarrell, DOSigned by:Octavio Jarrell, DO05/30/17Final result Normal [facility] CBC with Diffon 05-22-2017 Basophils Auto #/vol (Bld) 0.1 K/mcL Normal 0-0.2 [facility] Comment on above: Performed By: #### C BCDIF, EDCTNI, CMET, LIPASE, NTPROBNP ####Unless otherwise noted, all testing performed by [address] [phone]: [id number] Director: Carrillo Willis M.D. Basophils/100 WBC Auto (Bld) 0.9 % Normal [facility] Comment on above: Performed By: #### C BCDIF, EDCTNI, CMET, LIPASE, NTPROBNP ####Unless otherwise noted, all testing performed by [address] [phone]: [id number] Director: Carrillo Willis M.D. Eosinophils 0.2 K/mcL Normal 0-0.5 [facility] Comment on above: Performed By: #### C BCDIF, EDCTNI, CMET, LIPASE, NTPROBNP ####Unless otherwise noted, all testing performed by [address] [phone]: [id number] Director: Carrillo Willis M.D. Eosinophils/100 leukocytes 2.4 % Normal [facility] Comment on above: Performed By: #### C BCDIF, EDCTNI, CMET, LIPASE, NTPROBNP ####Unless otherwise noted, all testing performed by [address] [phone]: [id number] Director: Carrillo Willis M.D. Erythrocyte distribution width Auto Ratio (RBC) 12.8 % Normal 10-14.3 [facility] Comment on above: Performed By: #### C BCDIF, EDCTNI, CMET, LIPASE, NTPROBNP ####Unless otherwise noted, all testing performed by [place] [phone]: [id number] Director: Carrillo Willis M.D. Erythrocytes (RBC) 5.09 M/mcL Normal 4.0-5.5 [facility] Comment on above: Performed By: #### C BCDIF, EDCTNI, CMET, LIPASE, NTPROBNP ####Unless otherwise noted, all testing performed by [address] [phone]: [id number] Director: Carrillo Willis M.D. Hematocrit (HCT) 47.7 % Normal 37.9-49.2 [facility] Comment on above: Performed By: #### C BCDIF, EDCTNI, CMET, LIPASE, NTPROBNP ####Unless otherwise noted, all testing performed by [address] [phone]: [id number] Director: Carrillo Willis M.D. Hemoglobin mass conc (Bld) 16.6 g/dL Normal 12.9-16.9 [facility] Comment on above: Performed By: #### C BCDIF, EDCTNI, CMET, LIPASE, NTPROBNP ####Unless otherwise noted, all testing performed by [address] [phone]: [id number] Director: Carrillo Willis M.D. Lymphocytes 1.7 K/mcL Normal 0.9-3.6 [facility] Comment on above: Performed By: #### C BCDIF, EDCTNI, CMET, LIPASE, NTPROBNP ####Unless otherwise noted, all testing performed by [address] [phone]: [id number] Director: Carrillo Willis M.D. Lymphocytes/100 leukocytes 19.4 % Normal [facility] Comment on above: Performed By: #### C BCDIF, EDCTNI, CMET, LIPASE, NTPROBNP ####Unless otherwise noted, all testing performed by [address] [phone]: [id number] Director: Carrillo Willis M.D. MCH 32.5 pg Normal 27.7-34.6 [facility] Comment on above: Performed By: #### C BCDIF, EDCTNI, CMET, LIPASE, NTPROBNP ####Unless otherwise noted, all testing performed by [address] [phone]: [id number] Director: Carrillo Willis M.D. MCHC mass conc (RBC) 34.8 g/dL Normal 32.9-35.5 [facility] Comment on above: Performed By: #### C BCDIF, EDCTNI, CMET, LIPASE, NTPROBNP ####Unless otherwise noted, all testing performed by [address] [phone]: [id number] Director: Carrillo Willis M.D. MCV 93.6 fL Normal 82.8-99.3 [facility] Comment on above: Performed By: #### C BCDIF, EDCTNI, CMET, LIPASE, NTPROBNP ####Unless otherwise noted, all testing performed by [address] [phone]: [id number] Director: Carrillo Willis M.D. Monocytes 0.6 K/mcL Normal 0.2-0.6 [facility] Comment on above: Performed By: #### C BCDIF, EDCTNI, CMET, LIPASE, NTPROBNP ####Unless otherwise noted, all testing performed by [address] [phone]: [id number] Director: Carrillo Willis M.D. Monocytes/100 leukocytes 6.8 % Normal [facility] Comment on above: Performed By: #### C BCDIF, EDCTNI, CMET, LIPASE, NTPROBNP ####Unless otherwise noted, all testing performed by [address] [phone]: [id number] Director: Carrillo Willis M.D. Neutrophils 6.3 K/mcL Normal 1.4-6.8 [facility] Comment on above: Performed By: #### C BCDIF, EDCTNI, CMET, LIPASE, NTPROBNP ####Unless otherwise noted, all testing performed by [address] [phone]: [id number] Director: Carrillo Willis M.D. Platelet mean volume (PMV) 8.4 fL Normal 6.6-10.8 [facility] Comment on above: Performed By: #### C BCDIF, EDCTNI, CMET, LIPASE, NTPROBNP ####Unless otherwise noted, all testing performed by [address] [phone]: [id number] Director: Carrillo Willis M.D. Platelets 219 K/mcL Normal 139-354 [facility] Comment on above: Performed By: #### C BCDIF, EDCTNI, CMET, LIPASE, NTPROBNP ####Unless otherwise noted, all testing performed by [address] [phone]: [id number] Director: Carrillo Willis M.D. Segmented Neut % 70.5 % Normal [facility] Comment on above: Performed By: #### C BCDIF, EDCTNI, CMET, LIPASE, NTPROBNP ####Unless otherwise noted, all testing performed by [address] [phone]: [id number] Director: Carrillo Willis M.D. WBC (Leukocytes) 9.0 K/mcL Normal 3.6-10.4 [facility] Comment on above: Performed By: #### C BCDIF, EDCTNI, CMET, LIPASE, NTPROBNP ####Unless otherwise noted, all testing performed by [address] [phone]: [id number] Director: Carrillo iWllis M.D. CHEST PA AND LATERALon 05-22 CHEST PA AND LATERAL Final ReportAccession No: [id number] Performed: May 22 2017 11:59AMExamination: CHEST [...] Physician: JORGE GIRON D.O.Trans: : cc: Normal [facility] Comprehensive Metabolic Pane coral 05-22-2017 Alanine aminotransferase (ALT) 23 U/L Normal 14-65 [facility] Comment on above: Result Comment: This test result might be falsely depressed or falsely elevated onsamples drawn from patients taking Sulfasalazine and Sulfapyridine.Venipuncture should occur prior to taking either of these drugs. Performed By: #### C BCDIF, EDCTNI, CMET, LIPASE, NTPROBNP ####Unless otherwise noted, all testing performed by [address], [place] [phone]: [id number] Director: Carrillo Willis M.D. Albumin 4.1 g/dL Normal 3.2-5.2 [facility] Comment on above: Performed By: #### C BCDIF, EDCTNI, CMET, LIPASE, NTPROBNP ####Unless otherwise noted, all testing performed by [address] [phone]: [id number] Director: Carrillo Willis M.D. Alkaline phosphatase (ALP) 85 U/L Normal 40-150 [facility] Comment on above: Performed By: #### C BCDIF, EDCTNI, CMET, LIPASE, NTPROBNP ####Unless otherwise noted, all testing performed by [address] [phone]: [id number] Director: Carrillo Willis M.D. Aspartate aminotransferase (AST) 15 U/L Normal 0-45 [facility] Comment on above: Result Comment: This test result might be falsely depressed or falsely elevated onsamples drawn from patients taking Sulfasalazine and Sulfapyridine.Venipuncture should occur prior to taking either of these drugs. Performed By: #### C BCDIF, EDCTNI, CMET, LIPASE, NTPROBNP ####Unless otherwise noted, all testing performed by [address] [phone]: [id number] Director: Carrillo Willis M.D. Bilirubin (total) 0.4 mg/dL Normal 0.3-1.2 [facility] Comment on above: Performed By: #### C BCDIF, EDCTNI, CMET, LIPASE, NTPROBNP ####Unless otherwise noted, all testing performed by [address] [id number]: [id number] Director: Carrillo Willis M.D. Calcium 9.5 mg/dL Normal 8.4-10.2 [facility] Comment on above: Performed By: #### C BCDIF, EDCTNI, CMET, LIPASE, NTPROBNP ####Unless otherwise noted, all testing performed by [address] [phone]: [id number] Director: Carrillo Willis M.D. Chloride 104 mmol/L Normal 98-108 [facility] Comment on above: Performed By: #### C BCDIF, EDCTNI, CMET, LIPASE, NTPROBNP ####Unless otherwise noted, all testing performed by [address] [phone]: [id number] Director: Carrillo Willis M.D. CO2 29 mmol/L Normal 21-32 [facility] Comment on above: Performed By: #### C BCDIF, EDCTNI, CMET, LIPASE, NTPROBNP ####Unless otherwise noted, all testing performed by [address] [phone]: [id number] Director: Carrillo Willis M.D. Creatinine 0.91 mg/dL Normal 0.80-1.30 [facility] Comment on above: Performed By: #### C BCDIF, EDCTNI, CMET, LIPASE, NTPROBNP ####Unless otherwise noted, all testing performed by [address] [phone]: [id number] Director: Carrillo Willis M.D. eGFR (black) mL/min/{1.73_m2} Normal [facility] Comment on above: Result Comment: Afri can [place]an GFR Calc Performed By: #### C BCDIF, EDCTNI, CMET, LIPASE, NTPROBNP ####Unless otherwise noted, all testing performed by [address] [phone]: [id number] Director: Carrillo Willis M.D. eGFR (non-black) mL/min/{1.73_m2} Normal [facility] Comment on above: Result Comment: Non- [...] ####Unless otherwise noted, all testing performed by [address] [phone]: [id number] Director: Carrillo Willis M.D. Glucose mass conc 105 mg/dL High 70-99 [facility] Comment on above: Result Comment: This test result might be falsely depressed or falsely elevated onsamples drawn from patients taking Sulfasalazine and Sulfapyridine.Venipuncture should occur prior to taking either of these drugs. Performed By: #### C BCDIF, EDCTNI, CMET, LIPASE, NTPROBNP ####Unless otherwise noted, all testing performed by [address] [phone]: [id number] Director: Carrillo Willis M.D. Potassium molar conc 4.3 mmol/L Normal 3.5-5.1 [facility] Comment on above: Performed By: #### C BCDIF, EDCTNI, CMET, LIPASE, NTPROBNP ####Unless otherwise noted, all testing performed by [address] [phone]: [id number] Director: Carrillo Willis M.D. Protein 7.4 g/dL Normal 6.0-8.0 [facility] Comment on above: Performed By: #### C BCDIF, EDCTNI, CMET, LIPASE, NTPROBNP ####Unless otherwise noted, all testing performed by [address] [phone]: [id number] Director: Carrillo Willis M.D. Sodium 140 mmol/L Normal 135-145 [facility] Comment on above: Performed By: #### C BCDIF, EDCTNI, CMET, LIPASE, NTPROBNP ####Unless otherwise noted, all testing performed by [address] [phone]: [id number] Director: Carrillo Willis M.D. Urea nitrogen 16 mg/dL Normal 8-25 [facility] Comment on above: Performed By: #### C BCDIF, EDCTNI, CMET, LIPASE, NTPROBNP ####Unless otherwise noted, all testing performed by [address] [phone]: [id number] Director: Carrillo Willis M.D. ED Cardiac Troponin-Ion 12- Troponin I.cardiac mass conc ng/mL Normal < 45 [facility] Comment on above: Result Comment: Elev [...] ####Unless otherwise noted, all testing performed by [address] [phone]: [id number] Director: Carrillo Willis M.D. Lipaseon 05-22-2017 Lipase 124 U/L Normal 73-393 [facility] Comment on above: Performed By: #### C BCDIF, EDCTNI, CMET, LIPASE, NTPROBNP ####Unless otherwise noted, all testing performed by [address] [phone]: [id number] Director: Carrillo Willis M.D. NT-Pro BNP, Serumon 05-22-20 17 BNP 52 pg/mL Normal 0-125 [facility] Comment on above: Performed By: #### C BCDIF, EDCTNI, CMET, LIPASE, NTPROBNP ####Unless otherwise noted, all testing performed by [address] [phone]: [id number] Director: Carrillo Willis M.D. Vital Signs Date Time Vital Sign Value Performing Clinician Facility 12-14-2024 10:55-0400 Body height 190.[address] Melvin Trujillo MD Work Phone: [facility] 12-14-2024 10:55-0400 Body mass index (BMI) [Ratio] 22.4 kg/m2 Dr. Melvin Trujillo MD Work Phone: [facility] 12-14-2024 10:55-0400 Body weight 81.[address] Melvin Trujillo MD Work Phone: [facility] 12-14-2024 10:55-0400 Diastolic blood pressure 76 mm[Hg] Dr. Melvin Trujillo MD Work Phone: [facility] 12-14-2024 10:55-0400 Heart rate 71 /min Dr. Melvin Trujillo MD Work Phone: [facility] 12-14-2024 10:55-0400 Respiratory rate 16 /min Dr. Melvin Trujillo MD Work Phone: [facility] 12-14-2024 10:55-0400 Systolic blood pressure 124 mm[Hg] Dr. Melvin Trujillo MD Work Phone: [facility] 10-04-2022 10:47-0400 Body height 190.[address] Melvin Trujillo Work Phone: [facility] 10-04-2022 10:47-0400 Body mass index (BMI) [Ratio] 20.7 kg/m2 Dr. Melvin Trujillo Work Phone: [phone] [place] [address] 10-04-2022 10:47-0400 Body weight 75.[address] Melvin Trujillo Work Phone: [facility] 10-04-2022 10:47-0400 Diastolic blood pressure 73 mm[Hg] Dr. Melvin Trujillo Work Phone: [facility] 10-04-2022 10:47-0400 Heart rate 68 /min Dr. Melvin Trujillo Work Phone: [facility] 10-04-2022 10:47-0400 Respiratory rate 18 /min Dr. Melvin Trujillo Work Phone: [facility] 10-04-2022 10:47-0400 SaO2% (BldA) [Mass fraction] 99 % Dr. Melvin Trujillo Work Phone: [facility] 10-04-2022 10:47-0400 Systolic blood pressure 131 mm[Hg] Dr. Melvin Trujillo Work Phone: [facility] 05-22-2022 10:28-0500 Body height 190.[address] Melvin Trujillo Work Phone: [facility] 05-22-2022 10:28-0500 Body weight 73.[address] Melvin Trujillo Work Phone: [facility] 05-21-2022 07:45-0500 Body mass index (BMI) [Ratio] 20.3 kg/m2 Dr. Melvin Trujillo Work Phone: [facility] 05-16-2022 09:22-0500 Body mass index (BMI) [Ratio] 20.3 kg/m2 Dr. Melvin Trujillo Work Phone: [facility] 05-16-2022 09:22-0500 Body weight 73.[address] Melvin Trujillo Work Phone: [facility] 05-16-2022 09:22-0500 Diastolic blood pressure 84 mm[Hg] Dr. Melvin Trujillo Work Phone: [facility] 05-16-2022 09:22-0500 Heart rate 79 /min Dr. Melvin Trujillo Work Phone: [facility] 05-16-2022 09:22-0500 Respiratory rate 16 /min Dr. Melvin Trujillo Work Phone: [facility] 05-16-2022 09:22-0500 Systolic blood pressure 142 mm[Hg] Dr. Melvin Trujillo Work Phone: [facility] 01-24-2022 08:50-0400 Body mass index (BMI) [Ratio] 20.2 kg/m2 Dr. Melvin Trujillo Work Phone: [facility] Work Phone: 01-24-2022 08:50-0400 Body temperature 97.8 [degF] Dr. Melvin Trujillo Work Phone: [facility] Work Phone: 01-24-2022 08:50-0400 Body weight 73.[address] Melvin Trujillo Work Phone: [facility] Work Phone: 01-24-2022 08:50-0400 Diastolic blood pressure 82 mm[Hg] Dr. Melvin Trujillo Work Phone: [facility] Work Phone: 01-24-2022 08:50-0400 Heart rate 79 /min Dr. Melvin Trujillo Work Phone: [facility] Work Phone: 01-24-2022 08:50-0400 Respiratory rate 17 /min Dr. Melvin Trujillo Work Phone: [facility] Work Phone: 01-24-2022 08:50-0400 SaO2% (BldA) [Mass fraction] 96 % Dr. Melvin Trujillo Work Phone: [facility] Work Phone: 01-24-2022 08:50-0400 Systolic blood pressure 149 mm[Hg] Dr. Melvin Trujillo Work Phone: [facility] Work Phone: 11-27-2021 10:31-0400 Body height 190.[address] Melvin Trujillo Work Phone: [facility] Work Phone: 11-27-2021 10:31-0400 Body mass index (BMI) [Ratio] 22.6 kg/m2 Dr. Melvin Trujillo Work Phone: [facility] Work Phone: 11-27-2021 10:31-0400 Body weight 82.[address] Melvin Trujillo Work Phone: [facility] Work Phone: 11-27-2021 10:31-0400 Diastolic blood pressure 74 mm[Hg] Dr. Melvin Trujillo Work Phone: [facility] Work Phone: 11-27-2021 10:31-0400 Heart rate 82 /min Dr. Melvin Trujillo Work Phone: [facility] Work Phone: 11-27-2021 10:31-0400 Respiratory rate 18 /min Dr. Melvin Trujillo Work Phone: [facility] Work Phone: 11-27-2021 10:31-0400 SaO2% (BldA) [Mass fraction] 94 % Dr. Melvin Trujillo Work Phone: [facility] Work Phone: 11-27-2021 10:31-0400 Systolic blood pressure 122 mm[Hg] Dr. Melvin Trujillo Work Phone: [facility] Work Phone: 08-21-2021 10:28-0400 Body height 190.[address] Melvin Trujillo Work Phone: [facility] Work Phone: 08-21-2021 10:28-0400 Body mass index (BMI) [Ratio] 23.6 kg/m2 Dr. Melvin Trujillo Work Phone: [facility] Work Phone: 08-21-2021 10:28-0400 Body weight 85.[address] Melvin Trujillo Work Phone: [facility] Work Phone: 08-21-2021 10:28-0400 Diastolic blood pressure 80 mm[Hg] Dr. Melvin Trujillo Work Phone: [facility] Work Phone: 08-21-2021 10:28-0400 Heart rate 76 /min Dr. Melvin Trujillo Work Phone: [facility] Work Phone: 08-21-2021 10:28-0400 Respiratory rate 18 /min Dr. Melvin Trujillo Work Phone: [facility] Work Phone: 08-21-2021 10:28-0400 Systolic blood pressure 138 mm[Hg] Dr. Melvin Trujillo Work Phone: [facility] Work Phone: 08-21-2021 10:28-0400 Body height 190.[address] Melvin Trujillo Work Phone: [facility] Work Phone: 08-21-2021 10:28-0400 Body mass index (BMI) [Ratio] 23.6 kg/m2 Dr. Melvin Trujillo Work Phone: [facility] Work Phone: 08-21-2021 10:28-0400 Body weight 85.[address] Melvin Trujillo Work Phone: [facility] Work Phone: 08-21-2021 10:28-0400 Diastolic blood pressure 80 mm[Hg] Dr. Melvin Trujillo Work Phone: [facility] Work Phone: 08-21-2021 10:28-0400 Heart rate 76 /min Dr. Melvin Trujillo Work Phone: [facility] Work Phone: 08-21-2021 10:28-0400 Respiratory rate 18 /min Dr. Melvin Trujillo Work Phone: [facility] Work Phone: 08-21-2021 10:28-0400 Systolic blood pressure 138 mm[Hg] Dr. Melvin Trujillo Work Phone: [facility] Work Phone: 07-27-2021 13:30-0500 Body temperature 98.2 [degF] Dr. Melvin Trujillo Work Phone: [facility] Work Phone: 07-27-2021 13:30-0500 Diastolic blood pressure 59 mm[Hg] Dr. Melvin Trujillo Work Phone: [facility] Work Phone: 07-27-2021 13:30-0500 Heart rate 67 /min Dr. Melvin Trujillo Work Phone: [facility] Work Phone: 07-27-2021 13:30-0500 Respiratory rate 14 /min Dr. Melvin Trujillo Work Phone: [facility] Work Phone: 07-27-2021 13:30-0500 SaO2% (BldA) [Mass fraction] 96 % Dr. Melvin Trujillo Work Phone: [facility] Work Phone: 07-27-2021 13:30-0500 Systolic blood pressure 103 mm[Hg] Dr. Melvin Trujillo Work Phone: [facility] Work Phone: 07-27-2021 12:30-0500 Body temperature 98.2 [degF] Dr. Melvin Trujillo Work Phone: [facility] Work Phone: 07-27-2021 12:30-0500 Diastolic blood pressure 59 mm[Hg] Dr. Melvin Trujillo Work Phone: [facility] Work Phone: 07-27-2021 12:30-0500 Heart rate 67 /min Dr. Melvin Trujillo Work Phone: [facility] Work Phone: 07-27-2021 12:30-0500 Respiratory rate 14 /min Dr. Melvin Trujillo Work Phone: [facility] Work Phone: 07-27-2021 12:30-0500 SaO2% (BldA) [Mass fraction] 96 % Dr. Melvin Trujillo Work Phone: [facility] Work Phone: 07-27-2021 12:30-0500 Systolic blood pressure 103 mm[Hg] Dr. Melvin Trujillo Work Phone: [facility] Work Phone: 07-26-2021 19:54-0500 Body mass index (BMI) [Ratio] 22.8 kg/m2 Dr. Melvin Trujillo Work Phone: [facility] Work Phone: 07-26-2021 19:54-0500 Body weight 83.[address] Melvin Trujillo Work Phone: [facility] Work Phone: 07-26-2021 18:54-0500 Body mass index (BMI) [Ratio] 22.8 kg/m2 Dr. Melvin Trujillo Work Phone: [facility] Work Phone: 07-26-2021 18:54-0500 Body weight 83.[address] Melvin Trujillo Work Phone: [facility] Work Phone: 03-06-2019 17:00-0400 Pulse (Heart Rate) 72 /min [facility] 03-06-2019 17:00-0400 Pulse Oximetry 99 % [facility] 03-06-2019 15:30-0400 Respiratory Rate 18 /min [facility] 03-06-2019 13:00-0400 BP Diastolic 82 mm[Hg] [facility] 03-06-2019 13:00-0400 BP Systolic 122 mm[Hg] [facility] 03-06-2019 12:15-0400 Body Temperature 97.59 [degF] [facility] Encounters Encounter Date Encounter Type Care Provider Facility Start: 02-28-2025 Patient encounter procedure Kade Bright PRECONSTRUCTION MANAGER-C -Cat Scan [facility] Work Phone: Start: 02-28-2025 End: 02-28-2025 ambulatory Melvin Trujillo Facility:[facility] Start: 02-22-2025 End: 02-22-[address] Melvin Trujillo MD Work Phone: -Laboratory Start: 02-22-2025 End: 02-22-[address] Hilario Valladares MD -Laboratory Work Phone: Start: 02-22-2025 End: 02-22-2025 ambulatory Melvin Trujillo Facility:[facility] Start: 12-14-2024 End: 12-14-2024 Patient encounter procedure Chris Mirna Edwin ROMANO-C -[facility] Work Phone: Start: 12-14-2024 End: 12-14-[address] Melvin Trujillo MD Work Phone: -[facility] Start: 07-20-2024 End: 07-20-2024 ambulatory Melvin Trujillo Facility:[facility] Start: 09-23-2023 End: 09-23-2023 ambulatory [facility] Work Phone: Start: 09-23-2023 End: 09-23-2023 Patient encounter procedure [facility] Start: 05-08-2023 End: 05-08-2023 ambulatory [facility] Work Phone: Start: 05-08-2023 End: 05-08-2023 Patient encounter procedure [facility] Work Phone: Start: 01-21-2023 End: 01-21-[address] Melvin Trujillo Work Phone: [facility] Work Phone: Start: 01-21-2023 End: 01-21-[address] Melvin Trujillo Work Phone: [facility] Start: 11-26-2022 End: 11-26-[address] Melvin Trujillo Work Phone: [facility] Work Phone: Start: 11-26-2022 End: 11-26-[address] Melvin Trujillo Work Phone: [facility]-Cat Scan, [facility] Start: 11-06-2022 End: 11-06-[address] Vinayak Edmonds Facility:[id number] Start: 11-06-2022 End: 11-06-2022 Subsequent hospital visit by physician Vinayak Edmonds DO Work Phone: [facility] Comment on above: Encounter for screen ing for malignant neoplasm of colon; Polyp of colon; Essential (primary) hypertension; Pure hypercholesterolemia, unspecified; Benign prostatic hyperplasia without lower urinary tract symptoms; Chronic obstructive pulmonary disease, unspecified ([facility]) Start: 10-11-2022 End: 10-11-[address] Melvin Trujillo Work Phone: [facility] Work Phone: Start: 10-11-2022 End: 10-11-[address] Melvin Trujillo Work Phone: [facility]-Laboratory Start: 10-04-2022 End: 10-04-[address] Melvin Trujillo Work Phone: [facility] Start: 07-15-2022 End: 07-15-[address] Melvin Trujillo Work Phone: [facility] Work Phone: Start: 07-15-2022 End: 07-15-[address] Melvin Trujillo Work Phone: [facility]-Laboratory Start: 06-21-2022 Non-patient / Non-visit Dr. Marshal Trujillo Work Phone: [facility] Start: 06-21-2022 Non-patient / Non-visit Dr. Marshal Trujillo Work Phone: [facility] Start: 06-21-2022 End: 06-21-[address] Melvin Trujillo Work Phone: [facility] Work Phone: Start: 06-21-2022 End: 06-21-[address] Melvin Trujillo Work Phone: [facility]-Cardiovascula r Services Start: 05-22-2022 Non-patient / Non-visit Dr. Marshal Trujillo Work Phone: [facility] Start: 05-22-2022 End: 05-22-2022 Admission to same day surgery center Dr. Melvin Trujillo Work Phone: [facility]-Personnel Counselor/Special Procedures Start: 05-22-2022 End: 05-22-[address] Melvin Trujillo Work Phone: [facility] Work Phone: Start: 05-16-2022 End: 05-16-[address] Melvin Trujillo Work Phone: [facility] Work Phone: Start: 05-16-2022 End: 05-16-[address] Melvin Trujillo Work Phone: [facility]-Radiology, [facility] Start: 05-16-2022 End: 05-16-[address] Melvin Trujillo Work Phone: [facility] Start: 01-24-2022 End: 01-24-[address] Melvin Trujillo Work Phone: [facility]-Pulmonary Medicine [facility] Start: 12-04-2021 End: 12-04-[address] Melvin Trujillo Work Phone: [facility] Start: 11-28-2021 End: 11-28-[address] Melvin Trujillo Work Phone: [facility]-Cardiovascula r Services Start: 11-27-2021 End: 11-27-[address] Melvin Trujillo Work Phone: [facility] Start: 11-20-2021 End: 11-20-[address] Melvin Trujillo Work Phone: [facility]-Cat Scan, [facility] Start: 09-04-2021 End: 09-04-[address] Melvin Trujillo Work Phone: [facility]-Cardiovascula r Services Start: 08-21-2021 End: 08-21-[address] Melvin Trujillo Work Phone: [facility] Start: 07-27-2021 Non-patient / Non-visit Dr. Marshal Trujillo Work Phone: [facility] Start: 07-27-2021 Non-patient / Non-visit Dr. Marshal Trujillo Work Phone: [facility] Start: 07-26-2021 Non-patient / Non-visit Dr. Marshal Trujillo Work Phone: [facility] Start: 07-26-2021 End: 07-27-2021 Evaluation and management of inpatient Dr. Melvin Trujillo Work Phone: [facility]-Progressive Care Unit Start: 07-17-2020 End: 07-17-2020 Orders Only Ludy Jasmyne Mitchell Work Phone: [facility] Start: 07-20-2019 End: 07-24-2019 Patient encounter procedure TYSHAWN AHYDEN [facility] Start: 03-06-2019 End: 03-06-2019 Emergency department patient visit LUIS ENRIQUE LEONG [facility] Start: 03-06-2019 End: 03-06-2019 Emergency department patient visit Yariel Stewartganga Mercado Work Phone: [facility] Comment on above: Chest pain, unspecif ied type (Primary Dx) Start: 08-07-2018 End: 08-07-2018 Emergency department patient visit [facility] Start: 05-30-2017 End: 05-31-2017 Ambulatory [facility] Start: 05-22-2017 End: 05-22-2017 Emergency department patient visit Carrillo Bernal Facility:[facility] Date Procedure Procedure Detail Performing [...] 11-26-[address] Melvin Robison [facility] Work Phone: Start: 11-06-2022 SURGICAL PATHOLOGY RESULTS Vinayak Bushra Grey DO Work Phone: Start: 11-06-2022 Colonoscopy stoma dx including collj spec spx Melvin Trujillo MD Work Phone: Start: 11-06-2022 Colonoscopy Vinayak liu DO Work Phone: Start: 05-16-2022 Plain chest X-ray Dr. Jackie Trujillo Work Phone: Start: 11-20-[address] Melvin Robison [facility] Work Phone: Start: 07-26-2021 Plain chest X-ray [...] of coronary artery stent placement Chris Pineda PRECONSTRUCTION MANAGERShavonC Comment on above: [id number] LCx w/ 2.5 x 8 mm Elunir [...] 11-06-2032 Screening for malignant neoplasm of colon [facility] Start: 02-07-2023 Influenza vaccination Influenza Vaccine (#1) [facility] Start: 07-27-2021 Patient discharge [facility] Work Phone: Start: 07-27-2021 Notification of physician [facility] Work Phone: Start: 07-27-2021 Patient education [facility] Work Phone: Start: 07-27-2021 Pulse taking [facility] Work Phone: Start: 07-27-2021 Taking patient vital signs [facility] Work Phone: Start: 07-27-2021 Wound care [facility] Work Phone: Start: 07-27-2021 [facility] Work Phone: Start: 07-26-2021 Medication not administered [facility] Work Phone: Start: 07-26-2021 End: 07-26-2021 [facility] Work Phone: Start: 07-26-2021 Following clinical pathway protocol [facility] Work Phone: Start: 07-26-2021 Assessment of risk of venous thromboembolism [facility] Work Phone: Start: 07-26-2021 End: 07-26-2021 Catheterization of vein [facility] Work Phone: Start: 07-26-2021 Incentive spirometry [facility] Work Phone: Start: 07-26-2021 Inhalation therapy procedure [facility] Work Phone: Start: 07-26-2021 Insertion of catheter into peripheral vein [facility] Work Phone: Start: 07-26-2021 Measuring intake and output [facility] Work Phone: Start: 07-26-2021 Providing care according to standard [facility] Work Phone: Start: 07-26-2021 Provision of activity privileges [facility] Work Phone: Start: 07-26-2021 Referral to renal dialysis technician [facility] Work Phone: Start: 07-26-2021 Admission procedure [facility] Work Phone: Start: 02-08-2020 Influenza vaccination given Sequential Influenza Vaccine (#1) [facility] Start: 2019 Pneumococcal vaccination Pneumococcal Vaccine Age 65+ (1 of 2 - PCV13) [facility] Start: 02-07-2019 Influenza vaccination given SEQUENTIAL INFLUENZA VACCINE (#1) [facility] Start: 2004 Administration of herpes zoster vaccine Zoster Vaccines (1 of 2) [facility] Start: 2004 Screening for malignant neoplasm of colon [facility] Start: 2004 Zoster Vaccines (1 of 2) Zoster Vaccines (1 of 2) [facility] Start: 1976 DTaP/Tdap/Td Vaccines (1 - Tdap) DTaP/Tdap/Td Vaccines (1 - Tdap) [facility] Start: 1972 Hepatitis C antibody, confirmatory test Hepatitis C Screening [facility] Start: 1972 Hepatitis C screening Hepatitis C Screening [facility] Start: 1970 COVID-19 Vaccine (1 of 2) COVID-19 Vaccine (1 of 2) [facility] Start: 1966 Adolescent depression screening assessment Depression Screening (PHQ9) [facility] Start: 1960 Pneumococcal Vaccine: 65+ Years (1 - PCV) Pneumococcal Vaccine: 65+ Years (1 - PCV) [facility] Start: 1957 History and physical examination, annual for health maintenance Wellness Visit [facility] Start: 1954 COVID-19 Vaccine (#1) COVID-19 Vaccine (#1) [facility] Start: 1954 Fall risk assessment Falls Risk Assessment [facility] Start: 1954 Hepatitis C antibody, confirmatory test HEPATITIS C SCREENING [facility] Start: 1954 Lipid panel Lipid Panel [facility] Start: 1954 Prostate specific antigen measurement PSA Level [facility] Start: 1954 Screening for malignant neoplasm of colon [facility] Start: 1954 Tetanus vaccination [facility] Start: 1954 Yearly Adult Physical Yearly Adult Physical [facility] Catheterization of [facility] Work Phone: Catheterization of l [facility] Exercise tolerance test [facility] Work Phone: Measurement of respi ratory function [facility] Work Phone: Patient Education ED Chest Pain, Noncardiac [facility] Work Phone: Patient referral [facility] Work Phone: Payers Date Payer Category Payer Self-pay [id number] 2022 Unknown [id number] 2019 Medicare [id number] 2019 Medicare MEDICARE MEDICAR E PART A & B [id number] 2019-Present [place] [id number] 2014 Unknown [id number] 2011 Unknown [id number] 2011 Unknown MMO MEDICAL MUTU AL SUPERMED CLASSIC xxxxxxxxxxxx 2011-Present [id number] 2011 Unknown MMO MEDICAL MUTU AL SUPERMED CLASSIC [id number] 2011-Present [id number] 1954 Unknown [id number] 1954 Unknown [id number] 1954 Unknown [id number] 9 Unknown [id number] Unknown [id number] Unknown [id number] Unknown [id number] Social History Date Type Detail Facility Tobacco smoking status NHIS Unknown if ever smoked [facility] Start: 1955 Sex Assigned At Not on file [facility] Start: 08-21-2021 End: 10-04-2022 Tobacco smoking status NHIS Unknown if ever smoked [facility] Start: 08-26-2018 Cigarettes [facility] Start: 1955 Sex Assigned At Male W [facility] Gender identity Not on file [facility] Start: 12-14-2024 Tobacco smoking status NHIS Smokes tobacco daily (finding) [facility] Medical Equipment Procedure Code Equipment Code [...] Assessment Result Facility 07-27-2021 Functional status Ambulates;Bedrest [facility] Work Phone: 07-27-2021 Functional status Assistive Devices None [facility] Work Phone: Mental Status Date Assessment Result Facility 07-27-2021 Cognitive function Voice/Name [facility] Work Phone: Clinical Notes 03-04-2019 to 12-14-2024 Note Date & Type Note Facility 12-14-2024 Evaluation note Diagnosis Onset Date Resolution Essential (primary) hypertension chronic December 14, 2024 10:20am History of coronary artery stent placement March 04, 2019 chronic December 14, 2024 10:20am Hyperlipidemia chronic December 14, 2024 10:20am Nicotine dependence chronic December 14, 2024 10:20am [facility] Work Phone: 1(139) 722-873305-31-2023 NotePatient Name: Jaron Mireles Procedure Date: 11/06/2022 2:21 PM Date of : 1955 Admit Type: Outpatient Site: [facility] Proc RM 1 Ethnicity: Not or Race: White Attending MD: Vinayak Edmonds DO, [id number] Procedure: Colonoscopy Indications: Surveillance: Personal history of colonic polyps (unknown histology) on last colonoscopy more than 5 years ago Providers: Vinayak Edmonds DO (Doctor), Damaris Ferrari RN (Nurse), Joel Sanchez, Crop Scout Referring: Melvin Trujillo MD Medicines: Midazolam 7.5 [...] the patient. 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 Essential (primary) hypertension chronic Hyperlipidemia chronic History of coronary artery stent placement February 082018 resolved Fatigue acute Essential (primary) hypertension chronic Hyperlipidemia chronic History of coronary artery stent placement February 082018 resolved [facility] Work Phone: 1(912) 674-106509-26-2019 Evaluation note* Diagnosis Onset Date Resolution Status Nicotine dependence chronic Obstructive Sleep Apnea-Hypopnea Syndrome noneactive Chest pain acute Hyperlipidemia chronic History of coronary artery stent placement February 082018 resolved [facility] Work Phone: 1(431) 660-977409-26-2019 Evaluation note* Diagnosis Onset Date Resolution Status Chest pain acute Hyperlipidemia chronic History of coronary artery stent placement February 082018 resolved [facility] Work Phone: 1(663) 607-634209-26-2019 Evaluation note* Diagnosis Onset Date Resolution Status Essential (primary) hypertension chronic History of coronary artery stent placement February 082018 chronic Hyperlipidemia chronic [facility] Work Phone: 1(960) 233-644909-26-2019 Evaluation note* Diagnosis Onset Date Resolution Status Admit Date Essential (primary) hypertension chronic December 14, 2024 10:20am History of coronary artery stent placement March 04, 2019 chronic December 14, 025 10:20am Hyperlipidemia chronic December 14, 2024 10:20am Nicotine dependence chronic December 14, 2024 10:20am [facility] Work Phone: Evaluation note* Diagnosis Onset Date Resolution Status Chest pain acute 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 Essential (primary) hypertension chronic Hyperlipidemia chronic History of coronary artery stent placement February 082018 resolved [facility] Work Phone: Evaluation note* Diagnosis Encounter for screening for malignant neoplasm of colon Polyp of colon Benign neoplasm of colon Essential (primary) hypertension Unspecified essential hypertension Pure hypercholesterolemia, unspecified Benign prostatic hyperplasia without lower urinary tract symptoms Chronic obstructive pulmonary disease, unspecified (CMS/HCC) documented in this encounter [facility] Work Phone: Evaluation noteNo assessment information available [facility] Work Phone: Reason for referral (narrative)No reason for [facility] Work [facility]: Summary Purpose Family History No Family History Records Found Relationship Condition Age at Onset Recorded Date/T izaiah brother Cerebrovascular accident (CVA) Unknown Diabetes mellitus Unknown sister Diabetes mellitus Unknown Hypertension Unknown son Hypertension Unknown father Myocardial infarction 41 Advance Directives No Advanced Directives Records FoundDocuments on File Type Date Recorded 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 Advance Directives and Livin g Will 03/06/2019 1:04 PM Advance Directive Response Recorded Date/ Time Advance Directives Yes March 12, 2019 9:06am Living Will Yes July 26, 2 022 8:54pm Power of Parent Educator Yes July 26, 2021 8:54pm Advance Directive Response Recorded Date/ Time Name of Medical Power of Parent Educator Kenzie Mireles - July 26, 2021 8:54pm Advance Directives Yes March 12, 2019 9:06am Living Will Yes July 26 8:54pm Power of Parent Educator Yes July 26, 2021 8:54pm Advance Directive Response Recorded Date/ Time Advance Directives on File Yes Decem 2021 10:28am Name of Medical Power of Parent Educator Claudia Mireles-w gurpreet May 22, 2022 10:28am Advance Directives Yes May 10:28am Living Will Yes May 22 10:28am Power of Parent Educator Yes May 22, 2022 10:28am Advance Directive Response Recorded Date/ Time Advance Directives Yes May 11:28am Living Will Yes May 22 11:28am Power of Parent Educator Yes May 22, 2022 11:28am Advance Directive Response Recorded Date/ Time Advance Directives Yes May 10:28am Living Will Yes May 22 10:28am Power of Parent Educator Yes May 22, 2022 10:28am Advance Directive Response Recorded Date/ Time Living Will Yes May 22 11:28am Do you have a Healthcare Power of Parent Educator? Yes May 22, 2022 11:28am Advance Directives Yes May 11:28am Discharge Instructions * Instructions* Luis Enrique Hollis MD - 03/06/2019 If he having persistent chest pain or persistent shortness of breath return to ER Otherwise consult with your primary care physician or renal dialysis technician Friday for further care regarding a chest [...] for Visit Chest pain Atherosclerotic heart disease [place] coronary artery w/angina pectoris Essential (primary) hypertension Hyperlipidemia History of coronary artery stent placement Chief Complaint CHEST PAIN CHEST PAIN CHEST PAIN CHEST PAIN CHEST PAIN 3wk fu CAD NICOTINE DEPENDENCE Reason for Visit Chest pain Atherosclerotic heart disease [place] coronary artery w/angina pectoris Essential (primary) hypertension Hyperlipidemia History of coronary artery stent placement Chief Complaint 3wk fu CAD NICOTINE DEPENDENCE 3 M FU Peripheral vascular disease, unspecified Reason for Visit Atherosclerotic hear t disease [place] coronary artery w/angina pectoris Essential (primary) hypertension [...] section and content) DATE CREATED AUTHOR 11/27/2017 [facility] DATE CREATED AUTHOR AUTHOR'S ORGANIZ ATION 12/02/2017 [facility] DATE CREATED AUTHOR AUTHOR'S ORGANIZ ATION 08/10/2018 [facility] DATE CREATED AUTHOR AUTHOR'S ORGANIZ ATION 07/24/2019 [facility] DATE CREATED AUTHOR AUTHOR'S ORGANIZ ATION 11/19/2022 [facility] DATE CREATED AUTHOR AUTHOR'S ORGANIZ ATION 11/19/2022 [facility] DATE CREATED AUTHOR AUTHOR'S ORGANIZ ATION 04/02/2025 [facility] Reason for Visit (unrecogniz ed section [...] X3 ASA AT HOME. ED PROVIDER NOTE [facility] EMERGENCY DEPARTMENT NAME: Jaron Mireles AGE: 63 y.o. : 1955 VISIT DATE: 03/06/2019 CSN: [id number] PCP: Melvin Trujillo MD Chief Complaint Patient presents with Chest Pain Is a 63-year-old with known coronary artery disease who states he just had 2 stents placed at [facility] this week coming to the emergency room [...] file Gets together: Not on file Attends jew service: Not on file Active member of [...] consult with his primary care physician or renal dialysis technician next week. The patient has been informed [...] Discontinue: Error Luis Enrique Hollis MD 03/06/19 3209 Luis Enrique Hollis MD 03/06/19 0140 Bed: 15 Expected date: 03/06/19 Expected time: [...] MD Primary Care Provider Active Chris Pineda PRECONSTRUCTION MANAGER, PRECONSTRUCTION MANAGER-C Attending Provider Active Team Status: Active Member Role Status Dates Dr. Melvin Trujillo MD Primary Care Provider Active Dr. Keith Azevedo MD Attending Provider Active Team Status: Inactive Member Role Status Dates Dr. Melvin Trujillo MD Primary Care Provider Active Chris Pineda PRECONSTRUCTION MANAGER, PRECONSTRUCTION MANAGER-C Attending Provider Active Team Status: Inactive Member [...] Provider, Referring P rovider Active Elsy Briceno PRECONSTRUCTION MANAGER, PRECONSTRUCTION MANAGER-C Active Chris H Roof PRECONSTRUCTION MANAGER, PRECONSTRUCTION MANAGER-C Attending Provider Active Team Status: Inactive Member Role Status Dates Dr. Melvin Trujillo MD Primary Care Provider Active Chris Pineda PRECONSTRUCTION MANAGER, PRECONSTRUCTION MANAGER-C Attending Provider, Referring Pro vider Active Team Status: Inactive Member Role Status Dates Dr. Melvin Trujillo MD Primary Care Provide r, Attending Provider, Referring Provider Active Chris Pineda PRECONSTRUCTION MANAGER, PRECONSTRUCTION MANAGER-C Other Provider Active Team Status: Inactive Member Role Status Dates Dr. Melvin Trujillo MD Primary Care Provider, Attending Florence quach Active Microfilm Equipment Inspector Relationship Specialty Start Date End Date Melvin Trujillo MD [address] [place] [address] PCP - General 11/06/22 Team Status: Inactive [...] 2024 End: December 14, 2024 Chris Pineda PRECONSTRUCTION MANAGER, PRECONSTRUCTION MANAGER-C Attending Provider Active S tart: December 14, [...] 2024 End: December 14, 2024 Chris Pineda PRECONSTRUCTION MANAGER, PRECONSTRUCTION MANAGER-C Attending physician Active Start: December 14, 2024 [...] BE BASED ON THE PRIMARY CLINICAL RECORDS. [employer] [facility]. provides no warranty or guarantee of the accuracy or completeness of information in this document.
--- NOTE | 2025-05-06 17:24 | NURSING ---
ambulated nguyen x2 w/nurse and another lap alone before returning to room
[2025-05-07 02:49] VITALS: BP 145/81; PULSE 86; RESP 18; TEMP 36.7; O2SAT 98
[2025-05-07] MEDS: 0.9% Normal Saline (1000mL) 1,000 ML 125 ML IV (05:37)
[2025-05-07 09:02] VITALS: BP 139/60; PULSE 85; RESP 16; TEMP 36.7; O2SAT 97
[2025-05-07 09:07] VITALS: BP 139/60; PULSE 85
[2025-05-07] MEDS: Metoprolol(XL)Succ 25 MG Tablet PO (09:07)
[2025-05-07] MEDS: Fluticasone 0.05% 1 SPRAY NASAL.SRY 2 SPRAY NASAL (09:08)
[2025-05-07 12:06] VITALS: BP 135/63; PULSE 76; RESP 16; TEMP 36.6; O2SAT 98
== END 2025-05-07 12:20 | disposition home or self-care (01) ==
LOC: SDC 13:15 → MS3 13:15
PROVIDERS: Admitting Provider Urology; PCP Family Medicine; Referring Provider Urology; Visit Provider Urology
PROC: (CPT 52317; principal; 2025-05-06 10:00)
DX: N21.0 Calculus in bladder (principal); J44.9 Chronic obstructive pulmonary disease, unspecified; N40.1 Benign prostatic hyperplasia with lower urinary tract symptoms; N13.8 Other obstructive and reflux uropathy; K21.9 Gastro-esophageal reflux disease without esophagitis; E78.5 Hyperlipidemia, unspecified; I25.10 Atherosclerotic heart disease of native coronary artery without angina pectoris; I10 Essential (primary) hypertension; Z79.899 Other long term (current) drug therapy; F17.210 Nicotine dependence, cigarettes, uncomplicated
CPT/HCPCS: 52317; 52601; 00910; 96360; 96361; 99221; 99406; G0378; J2405

== ENCOUNTER 2025-05-08 19:15 | Emergency (ER) | payer MEDICARE, BC, SELFPAY ==
[2025-05-08 19:15] VITALS: BP 103/58; PULSE 100; RESP 18; TEMP 37.2; O2SAT 98; BMI 22.9
--- OUTSIDE RECORDS SUMMARY | 2025-05-08 19:33 | XMS RPT_ITS | CCD ---
Author Organization [facility] Providers Care Inspector Exhaust Emissions Name Role Phone Carrillo Bernal Unavailable Unavailable [...] Provider Dr. Melvin Trujillo Referring Provider Wynne AUTOMATIC RIVETING MACHINE OPERATOR, AUTOMATIC RIVETING MACHINE OPERATOR-C [place] Attending Provider Dr. Keith Azevedo Attending Provider Roof AUTOMATIC RIVETING MACHINE OPERATOR, AUTOMATIC RIVETING MACHINE OPERATOR-C Chris Bradley Attending Provider Dr. Melvin Trujillo Primary Care Provider Dr. Melvin Trujillo Referring Provider Dr. Melvin Trujillo Primary Care Provider Dr. Keith Azevedo Attending Provider Roof AUTOMATIC RIVETING MACHINE OPERATOR, AUTOMATIC RIVETING MACHINE OPERATOR-C Chris Bradley Attending Provider Dr. Melvin Trujillo Referring Provider Dr. Vinayak Edmonds Attending Unavailable Dr. Melvin Trujillo Primary Care Unavailable Dr. Melvin Trujillo Referring Unavailable Dr. Vinayak Edmonds Admitting Unavailable Dr. Melvin Trujillo Primary Care Provider Edwin AUTOMATIC RIVETING MACHINE OPERATOR, AUTOMATIC RIVETING MACHINE OPERATOR-C Chris Bradley Attending Provider Melvin Trujillo MD Primary Care Provider Dr. Melvin Trujillo MD Primary Care Provider Dr. Melvin Trujillo MD Referring Provider Edwin AUTOMATIC RIVETING MACHINE OPERATOR-CChris Attending Provider Dr. Melvin Trujillo MD Primary Care Physician Edwin AUTOMATIC RIVETING MACHINE OPERATOR-C, Chris Bradley Attending Physician Blaine TABARES, Dr. Hilario Garcia Attending Physician Blaine TABARES, Dr. Hilario Garcia Referring Provider [phone] [facility] AUTOMATIC RIVETING MACHINE OPERATOR-CKade Attending Physician Alidaorrow AUTOMATIC RIVETING MACHINE OPERATOR-CKade Referring Provider Melvin Trujillo Primary Care Unavailable Alidaorrow AUTOMATIC RIVETING MACHINE OPERATORKade Attending Unavailable [facility] Kade ROMANO Referring Unavailable Melvin [...] nasa l route three times daily Ipratropium [place] Active 2 SPRAY INTRANASAL THREE TIMES A [...] sources) Start: 05-16-2020 take 1 capsule by [facility] once daily Completed/Discontinued Medications Medication [...] 9:34am Start: 08-26-2018 End: 02-26-2019 Famotidine-Ca Carb-Mag [place] x Discontinued 1 - 2 EACH PO [...] 20, 2022 4:21pm December 16, 2023 9:58am Faslvbpa-Oip-Ekptb -Vit K-Lycop (One-A-Day Men's Multivitamin) 400-20-300 mcg tablet (13 sources) Start: 11-27-2021 End: 12-14-2024 Anqdcamh-Zgx-Psaac- Vit K-Lycop (One-A-Day Men's Multivitamin) 400-20-300 mcg tablet Discontinued 1 {tbl} PO DAILY November 27, 2021 12:00am December 14, 2024 11:02am Start: 11-27-2021 take 1 tablet by elizabeth once daily Xeqqzkbc-Yqt-Oygor-Vit K-Lycop (One-A-Da y Men's Multivitamin) 400-20-300 mcg tablet Active 1 TABLET PO DAILY November 27, 2021 12:00am Start: 11-27-2021 take 1 tablet by elizabeth th once daily Jfvbspkl-Twb-Kyuva-Vit K-Lycop (-A Men's Multivitamin) 400-20-300 mcg tablet Active 1 TABLET PO DAILY November 26, 2021 11:00pm Start: 11-27-2021 take 1 tablet by elizabeth th once Qrwplzul-Ogo-Hbsej-Vit K-Lycop (-A Men's Multivitamin) 400-20-300 mcg tablet [...] disease (20 sources) Atherosclerotic heart disease of [place] coronary artery without angina pectoris; Translations: [Coronary [...] Screeningon 02-28-[address] Lung Screening [facility] Services [address] [place] [address] Lung Screening MR#: [id number] Acct: [id number] Name: JARON MIRELES Rep #: [id number] : 1955 M 69 From: Blaine Loja MD PCP: Dr. Melvin Trujillo MD Status: REG CLI Study: Low Dose CT Lung Screening Date of Exam: 02/28 Exam# [id number] Ordering Dr: Kade Novoa NP AUTOMATIC RIVETING MACHINE OPERATOR -C PROCEDURE: LOW DOSE CT LUNG SCREENING 02/28/2025 REASON FOR EXAM: TOBACCO ABUSUSE TECHNIQUE: Procedure Code: CTLUNGSCREEN Modality: CT Procedure: LOW DOSE CT LUNG SCREENING Coronal and Sagittal reconstruction series were provided. One or more dose reduction techniques were used (e.g., Automated exposure control, adjustment of the mA and/or kV according to patient size, use of iterative reconstruction technique). REFERENCE LINK: [facility] Lung-RADS RADIATION DOSE SUMMARY: CTDlvol: 3.0 mGy [...] SCREENING LDCT. Other Significant Findings: Reading Location: [facility] CC: Kade ROMANO NP-Alondra Irwinorrmandy; Dr. Melvin Trujillo MD Freight Manager: Signed Normal [facility] PSA,Total - Annual Screenon 02-22-2025 PSA,TOT SCREEN 1.40 ng/mL Normal 0.02-4.00 [facility] Comment on above: [...] values. Performed By: #### L 501.9910 #### [facility] Laboratory [address] [place], [address] Cardiology Visit Reporton Cardiology Visit Report [facility] [address] [place] [address] OFFICE VISIT Date of Service: 12/14/24 MR#: [id number] Acct: [id number] Name: JARON MIRELES Rep #: [id number] : 1955 Provider: DENISE sifuentes Age/Sex: 69/M [...] NIBP Intake Visit Reasons: 1 Y FU Sock Boarder Required: No Is patient in pain?: No [...] past year?: Yes (Off of a ladder) [facility] Medical History Essential (primary) hypertension Elevated blood pressure reading in office without diagnosis of hypertension Nicotine dependence GERD (gastroesophageal reflux disease) Hyperlipidemia COPD (chronic obstructive pulmonary disease) Atherosclerotic heart disease [place] coronary artery w/angina pectoris Surgical History History [...] never substanc (more content not included)... Normal [facility] CBC W/Diff, Automatedon 07-10 Absolute Lymph 2.06 X10 3/uL Normal 0.83-4.51 [facility] Comment on above: Order Comment: Order Date: 07/20/24 Order Info: 0184-1 - CBCD Performed By: #### L 500.4050, L502.0250, L100.0100 #### [facility] [address] [place], [address] Absolute Neut 6.4 X10 3/uL Normal 2.0-7.7 [facility] Comment on above: Order Comment: Order Date: 07/20/24 Order Info: 0184-1 - CBCD Performed By: #### L 500.4050, L502.0250, L100.0100 #### [facility] [address] [place], [address] Basophils/100 WBC (Bld) 0.9 % Normal 0-1 [facility] Comment on above: Order Comment: Order Date: 07/20/24 Order Info: 0184-1 - CBCD Performed By: #### L 500.4050, L502.0250, L100.0100 #### [facility] [address] [place], [address] Eosinophils/100 WBC (Bld) 2.8 % Normal 0-5 [facility] Comment on above: Order Comment: Order Date: 07/20/24 Order Info: 0184-1 - CBCD Performed By: #### L 500.4050, L502.0250, L100.0100 #### [facility] [address] [place], [address] Erythrocyte distribution width (RBC) [Ratio] 12.7 % Normal 11.6-14.6 [facility] Comment on above: Order Comment: Order Date: 07/20/24 Order Info: 0184-1 - CBCD Performed By: #### L 500.4050, L502.0250, L100.0100 #### [facility] [address] [place], [address] Hematocrit (Bld) [Volume fraction] 46.5 % Normal 40-54 [facility] Comment on above: Order Comment: Order Date: 07/20/24 Order Info: 0184-1 - CBCD Performed By: #### L 500.4050, L502.0250, L100.0100 #### [facility] [address] [place], [address] Hemoglobin (Bld) [Mass/Vol] 15.5 g/dL Normal 13.0-16.5 [facility] Comment on above: Order Comment: Order Date: 07/20/24 Order Info: 0184- - CBCD Performed By: #### L 500.4050, L502.0250, L100.0100 #### [facility] [address] [place], [address] IG% 0.700 Normal 0.0-0.9 [facility] Comment on above: Order Comment: Order Date: 07/20/24 Order Info: 018- - CBCD Result Comment: IG% - Immature Granulocytes (promyelocytes, myelocytes and metamyelocytes) > 1% indicates that a LEFT SHIFT is Present. Performed By: #### L 500.4050, L502.0250, L100.0100 #### [facility] [address] [place], [address] Lymphocytes/100 WBC (Bld) 21.2 % Normal 19-41 [facility] Comment on above: Order Comment: Order Date: 07/20/24 Order Info: 018- - CBCD Performed By: #### L 500.4050, L502.0250, L100.0100 #### [facility] [address] [place], [address] MCH (RBC) [Entitic mass] 32.2 pg High 27.0-32.0 [facility] Comment on above: Order Comment: Order Date: 07/20/24 Order Info: 0184- - CBCD Performed By: #### L 500.4050, L502.0250, L100.0100 #### [facility] [address] [place], [address] MCHC (RBC) [Mass/Vol] 33.3 g/dL Normal 32-36 [facility] Comment on above: Order Comment: Order Date: 07/20/24 Order Info: 0184- - CBCD Performed By: #### L 500.4050, L502.0250, L100.0100 #### [facility] [address] [place], [address] MCV (RBC) [Entitic vol] 96.5 fL High 80-94 [facility] Comment on above: Order Comment: Order Date: 07/20/24 Order Info: 0184-1 - CBCD Performed By: #### L 500.4050, L502.0250, L100.0100 #### [facility] [address] [place], [address] Monocytes/100 WBC (Bld) 8.7 % Normal 0-10 [facility] Comment on above: Order Comment: Order Date: 07/20/24 Order Info: 0184-1 - CBCD Performed By: #### L 500.4050, L502.0250, L100.0100 #### [facility] [address] [place], [address] Neutrophils/100 WBC (Bld) 65.7 % Normal 47-70 [facility] Comment on above: Order Comment: Order Date: 07/20/24 Order Info: 0184-1 - CBCD Performed By: #### L 500.4050, L502.0250, L100.0100 #### [facility] [address] [place], [address] Nucleated RBC (Bld) [#/Vol] 0 10*3/uL Normal 0-5 [facility] Comment on above: Order Comment: Order Date: 07/20/24 Order Info: 0184-1 - CBCD Performed By: #### L 500.4050, L502.0250, L100.0100 #### [facility] [address] [place], [address] Platelet mean volume (Bld) [Entitic vol] 10.8 fL Normal 6.2-12.0 [facility] Comment on above: Order Comment: Order Date: 07/20/24 Order Info: 0184-1 - CBCD Performed By: #### L 500.4050, L502.0250, L100.0100 #### [facility] [address] [place], [address] Platelets (Bld) [#/Vol] 239 10*3/uL Normal 150-450 [facility] Comment on above: Order Comment: Order Date: 07/20/24 Order Info: 0184-1 - CBCD Performed By: #### L 500.4050, L502.0250, L100.0100 #### [facility] [address] [place], [address] RBC (Bld) [#/Vol] 4.82 10*6/uL Normal 4.6-6.2 [facility] Comment on above: Order Comment: Order Date: 07/20/24 Order Info: 0184- - CBCD Performed By: #### L 500.4050, L502.0250, L100.0100 #### [facility] [address] [place], [address] RDW SD 44.9 fl High 35.1-43.9 [facility] Comment on above: Order Comment: Order Date: 07/20/24 Order Info: 0184- - CBCD Performed By: #### L 500.4050, L502.0250, L100.0100 #### [facility] [address] [place], [address] WBC (Bld) [#/Vol] 9.7 10*3/uL Normal 4.4-11.0 [facility] Comment on above: Order Comment: Order Date: 07/20/24 Order Info: 0184-1 - CBCD Performed By: #### L 500.4050, L502.0250, L100.0100 #### [facility] [address] [place], [address] Comprehensive Metabolic Prof ilon 07-20-2024 Albumin [Mass/Vol] 4.6 g/dL Normal 3.2-5.0 [facility] Comment on above: Order Comment: Order Date: 07/20/24 Order Info: 0786-1 - CMP Performed By: #### L 500.4050, L502.0250, L100.0100 #### [facility] [address] [place], [address] Albumin/Globulin [Mass ratio] 1.6 {ratio} Normal 0.9-2.4 [facility] Comment on above: Order Comment: Order Date: 07/20/24 Order Info: 0786-1 - CMP Performed By: #### L 500.4050, L502.0250, L100.0100 #### [facility] [address] [place], [address] ALK P 75 U/L Normal 45-117 [facility] Comment on above: Order Comment: Order Date: 07/20/24 Order Info: 0786-1 - CMP Performed By: #### L 500.4050, L502.0250, L100.0100 #### [facility] [address] [place], [address] ALT [Catalytic activity/Vol] 26 U/L Normal 16-61 [facility] Comment on above: Order Comment: Order Date: 07/20/24 Order Info: 0786-1 - CMP Performed By: #### L 500.4050, L502.0250, L100.0100 #### [facility] [address] [place], [address] AST [Catalytic activity/Vol] 19 U/L Normal 15-37 [facility] Comment on above: Order Comment: Order Date: 07/20/24 Order Info: 0786-1 - CMP Performed By: #### L 500.4050, L502.0250, L100.0100 #### [facility] [address] [place], [address] Bilirubin [Mass/Vol] 0.50 mg/dL Normal 0.20-1.00 [facility] Comment on above: Order Comment: Order Date: 07/20/24 Order Info: 0786-1 - CMP Result Comment: For patients on eltrombopag therapy, use of Dimension [place] TBIL is not recommended. Performed By: #### L 500.4050, L502.0250, L100.0100 #### [facility] [address] [place], [address] BUN/CRE 17.6 RATIO Normal 10-20 [facility] Comment on above: Order Comment: Order Date: 07/20/24 Order Info: 0786-1 - CMP Performed By: #### L 500.4050, L502.0250, L100.0100 #### [facility] [address] [place], [address] CA,Total 9.4 mg/dL Normal 8.5-10.1 [facility] Comment on above: Order Comment: Order Date: 07/20/24 Order Info: 0786-1 - CMP Performed By: #### L 500.4050, L502.0250, L100.0100 #### [facility] [address] [place], [address] Chloride [Moles/Vol] 103 mmol/L Normal 98-107 [facility] Comment on above: Order Comment: Order Date: 07/20/24 Order Info: 0786-1 - CMP Performed By: #### L 500.4050, L502.0250, L100.0100 #### [facility] [address] [place], [address] CO2 [Moles/Vol] 28.0 mmol/L Normal 21.0-32.0 [facility] Comment on above: Order Comment: Order Date: 07/20/24 Order Info: 0786-1 - CMP Performed By: #### L 500.4050, L502.0250, L100.0100 #### [facility] [address] [place], [address] Creatinine [Mass/Vol] 1.02 mg/dL Normal 0.70-1.30 [facility] Comment on above: Order Comment: Order Date: 07/20/24 Order Info: 0786-1 - CMP Result Comment: The validity of the calculated GFR GFRAA in patients over 70 years has not been determined. Clinical correlation is essential. Performed By: #### L 500.4050, L502.0250, L100.0100 #### [facility] [address] [place], [address] EST GFR - AA 93 mL/min Normal >60 [facility] Comment on above: Order Comment: Order Date: 07/20/24 Order Info: 0786-1 - CMP Result Comment: Afri can Citizen Of [place] GFR Calc Performed By: #### L 500.4050, L502.0250, L100.0100 #### [facility] [address] [place], [address] GAP 8 Normal 5-15 [facility] Comment on above: Order Comment: Order Date: 07/20/24 Order Info: 0786-1 - CMP Performed By: #### L 500.4050, L502.0250, L100.0100 #### [facility] [address] [place], [address] GFR/1.73 sq M.predicted among non-blacks MDRD (S/P/Bld) [Vol rate/Area] 77 mL/min/{1.73_m2} Normal >60 [facility] Comment on above: Order Comment: Order Date: 07/20/24 Order Info: 0786-1 - CMP Result Comment: Non- GFR Calc Performed By: #### L 500.4050, L502.0250, L100.0100 #### [facility] [address] [place], [address] Globulin (S) [Mass/Vol] 2.9 g/dL Normal 2.2-4.2 [facility] Comment on above: Order Comment: Order Date: 07/20/24 Order Info: 0786-1 - CMP Performed By: #### L 500.4050, L502.0250, L100.0100 #### [facility] [address] [place], [address] Glucose [Mass/Vol] 90 mg/dL Normal 74-106 [facility] Comment on above: Order Comment: Order Date: 07/20/24 Order Info: 0786-1 - CMP Performed By: #### L 500.4050, L502.0250, L100.0100 #### [facility] [address] [place], [address] Potassium [Moles/Vol] 4.3 mmol/L Normal 3.5-5.1 [facility] Comment on above: Order Comment: Order Date: 07/20/24 Order Info: 0786-1 - CMP Performed By: #### L 500.4050, L502.0250, L100.0100 #### [facility] [address] [place], [address] Sodium [Moles/Vol] 138 mmol/L Normal 136-145 [facility] Comment on above: Order Comment: Order Date: 07/20/24 Order Info: 0786-1 - CMP Performed By: #### L 500.4050, L502.0250, L100.0100 #### [facility] [address] [place], [address] T PROT 7.5 g/dL Normal 6.4-8.2 [facility] Comment on above: Order Comment: Order Date: 07/20/24 Order Info: 0786-1 - CMP Performed By: #### L 500.4050, L502.0250, L100.0100 #### [facility] [address] [place], [address] Urea nitrogen [Mass/Vol] 18 mg/dL Normal 7-18 [facility] Comment on above: Order Comment: Order Date: 07/20/24 Order Info: 0786-1 - CMP Performed By: #### L 500.4050, L502.0250, L100.0100 #### [facility] [address] [place], [address] Microalb:Creat Ratio,Random URon 07-20-2024 Creatinine [Mass/Vol] 64.30 mg/dL Normal NO RAN GE EST. [facility] Comment on above: Order Comment: Order Date: 07/20/24 Order Info: 0779-1 - MIACRE Performed By: #### L 500.4050, L502.0250, L100.0100 #### [facility] [address] [place], [address] MALB:CRE 8.0 mg/g CRE Normal <30 mg/g CRE [facility] Comment on above: Order Comment: Order Date: 07/20/24 Order Info: 0779-1 - MIACRE Performed By: #### L 500.4050, L502.0250, L100.0100 #### [facility] [address] [place], [address] MICROALBUMIN,UR 5.2 mg/L Normal NO RANGE EST. [facility] Comment on above: Order Comment: Order Date: 07/20/24 Order Info: 0779-1 - MIACRE Performed By: #### L 500.4050, L502.0250, L100.0100 #### [facility] [address] [place], [address] Absolute lymphocyte countOrd ered By: Melvin Trujillo on 09-23-2023 Lymphocytes Auto (Unsp spec) [#/Vol] 1.91 10*3/uL 0.83-4.51 [facility] Automated lymphocyte count a s percentage of total leukocytesOrdered By: Melvin Trujillo on 09-23-2023 Lymphocytes/100 WBC Auto (Unsp spec) 20.1 % 19-41 [facility] Basophil percentageOrdered B y: Melvin Trujillo on 09-23-2023 Basophils/100 WBC (Bld) 0.8 % 0-1 [facility] Bilirubin [Mass/Vol] 0.80 mg/dL 0.20-1.00 [facility] Comment on above: For patients on eltr ombopag therapy, use of Dimension [place] TBIL is not recommended. Chloride [Moles/Vol] 107 mmol/L 98-107 [facility] Cholesterol [Mass/Vol] 138 mg/dL <200 [facility] Comment on above: <200 mg/dL Desirable 200-240 mg/dL Borderline >240 mg/dL High Risk Eosinophils/100 WBC (Bld) 2.2 % 0-5 [facility] Glucose [Mass/Vol] 114 mg/dL 74-106 [facility] Comment on above: Fasting Glucose resu lt from 100 to 125 mg/dL suggests IMPAIRED HOMEOSTASIS per A.D.A. criteria. Hemoglobin (Bld) [Mass/Vol] 15.1 g/dL 13.0-16.5 [facility] Monocytes/100 WBC (Bld) 7.3 % 0-10 [facility] Neutrophils (Bld) [#/Vol] 6.5 10*3/uL 2.0-7.7 [facility] Neutrophils/100 WBC (Bld) 68.9 % 47-70 [facility] Potassium [Moles/Vol] 5.2 mmol/L 3.5-5.1 [facility] Protein [Mass/Vol] 7.2 g/dL 6.4-8.2 [facility] Sodium [Moles/Vol] 138 mmol/L 136-145 [facility] Triglyceride [Mass/Vol] 84 mg/dL <199 [facility] Comment on above: The drugs N-Acetylcy steine and Metamizole may falsely depress this assay.Serum Triglycerides Reference Interval Normal <150 mg/dL Borderline high 150 - 199 mg/dL High 200 - 499 mg/dL Very High > or = 500 mg/dL WBC (Bld) [#/Vol] 9.5 10*3/uL 4.4-11.0 [facility] Determination of erythrocyte mean corpuscular volume (MCV)Ordered By: Melvin Trujillo on 09-23-2023 MCV (RBC) [Entitic vol] 96.5 fL 80-94 [facility] Erythrocyte distribution wid th ratioOrdered By: Melvin Trujillo on 09-23-2023 Erythrocyte distribution width (RBC) [Ratio] 14.0 % 11.6-14.6 [facility] Erythrocyte distribution wid th standard deviationOrdered By: Melvin Trujillo on 09-23-2023 Erythrocyte distribution width (RBC) [Entitic vol] 49.4 fL 35.1-43.9 [facility] Hematocrit Auto (Bld) [Volum e fraction]Ordered By: Melvin Trujillo on 09-23-2023 Hematocrit (Bld) [Volume fraction] 44.3 % 40-54 [facility] Immature granulocytes/100 WB C Auto (Bld)Ordered By: Melvin Trujillo on 09-23-2023 Immature granulocytes/100 WBC (Bld) 0.700 % 0.0-0.9 [facility] Comment on above: IG% - Immature Granu locytes (promyelocytes, myelocytes and metamyelocytes) > 1% indicates that a LEFT SHIFT is Present. Laboratory - Chemistry and C hemistry - challengeOrdered By: Melvin Trujillo on 09-23-2023 Albumin/Globulin [Mass ratio] 1.2 {ratio} 0.9-2.4 [facility] ALP [Catalytic activity/Vol] 65 U/L 45-117 [facility] ALT [Catalytic activity/Vol] 29 U/L 16-61 [facility] Cholesterol in HDL [Mass/Vol] 59 mg/dL >40 [facility] Comment on above: The drugs N-Acetylcy steine and Metamizole may falsely depress this assay. Reference Range HDL <40 mg/dL Low HDL Cholesterol HDL >or= 60 mg/dL High HDL Cholesterol Cholesterol in LDL [Mass/Vol] 62 mg/dL 0-130 [facility] CO2 [Moles/Vol] 30.0 mmol/L 21.0-32.0 [facility] Globulin (S) [Mass/Vol] 3.2 g/dL 2.2-4.2 [facility] Urea nitrogen/Creatinine [Mass ratio] 15.4 mg/mg 10-20 [facility] Laboratory - Hematology and Cell countsOrdered By: Melvin Trujillo on 09-23-2023 MCH (RBC) [Entitic mass] 32.9 pg 27.0-32.0 [facility] MCHC (RBC) [Mass/Vol] 34.1 g/dL 32-36 [facility] Nucleated RBC/100 WBC (Bld) [Ratio] 0 % 0-5 [facility] Platelet mean volume (Bld) [Entitic vol] 10.5 fL 6.2-12.0 [facility] Platelets (Bld) [#/Vol] 268 10*3/uL 150-450 [facility] No Panel InformationOrdered By: Melvin Trujillo on 09-23-2023 Estimated GFR (MDRD) Amer 79 mL/min >60 [facility] Comment on above: GFR Calc Estimated GFR (MDRD) Non-Af Amer 66 mL/min >60 [facility] Comment on above: Non- GFR Calc Urine Microalbumin/Creatinin e Ratio 11.5 mg/g CRE <30 [facility] VLDL Cholesterol 17 mg/dL 5-40 [facility] RBC Auto (Bld) [#/Vol]Ordere d By: Melvin Trujillo on 09-23-2023 RBC (Bld) [#/Vol] 4.59 10*6/uL 4.6-6.2 [facility] Serum or plasma calcium todd urement (mass/volume)Ordered By: Melvin Trujillo on 09-23-2023 Calcium [Mass/Vol] 9.2 mg/dL 8.5-10.1 [facility] Serum or plasma creatinine m easurement (mass/volume)Ordered By: Melvin Trujillo on 09-23-2023 Creatinine [Mass/Vol] 1.17 mg/dL 0.70-1.30 [facility] Comment on above: The validity of the calculated GFR & GFRAA in patients over 70 years has not been determined. Clinical correlation is essential. Serum or plasma urea nitroge n measurement (mass/volume)Ordered By: Melvin Trujillo on 09-23-2023 Urea nitrogen [Mass/Vol] 18 mg/dL 7-18 [facility] Thin prep Papanicolaou smear with manual screeningOrdered By: Melvin Trujillo on 09-23-2023 Thin prep Papanicolaou smear with manual screening 4.0 g/dL 3.2-5.0 [facility] Thin prep Papanicolaou smear with manual screening 20 U/L 15-37 [facility] Thin prep Papanicolaou smear with manual screening 1 5-15 [facility] Thin prep Papanicolaou smear with manual screening 8.7 mg/L NO RANGE EST. [facility] Urine creatinine measurement (mass/volume)Ordered By: Melvin Trujillo on 09-23-2023 Creatinine (U) [Mass/Vol] 75.40 mg/dL NO RANGE EST. [facility] Absolute lymphocyte countOrd ered By: Melvin Trujillo on 01-21-2023 Lymphocytes Auto (Unsp spec) [#/Vol] 1.69 10*3/uL 0.83-4.51 [facility] Basophil percentageOrdered B y: Melvin Trujillo on 01-21-2023 Basophil percentage 2.9 mg/dL 2.5-4.9 [facility] Basophils/100 WBC (Bld) 0.8 % 0-1 [facility] Bilirubin [Mass/Vol] 0.40 mg/dL 0.20-1.00 [facility] Comment on above: For patients on eltr ombopag therapy, use of Dimension [place] TBIL is not recommended. Chloride [Moles/Vol] 104 mmol/L 98-107 [facility] Eosinophils/100 WBC (Bld) 2.6 % 0-5 [facility] Glucose [Mass/Vol] 91 mg/dL 74-106 [facility] Neutrophils (Bld) [#/Vol] 5.1 10*3/uL 2.0-7.7 [facility] Neutrophils/100 WBC (Bld) 65.8 % 47-70 [facility] Potassium [Moles/Vol] 4.9 mmol/L 3.5-5.1 [facility] Protein [Mass/Vol] 7.2 g/dL 6.4-8.2 [facility] Sodium [Moles/Vol] 139 mmol/L 136-145 [facility] WBC (Bld) [#/Vol] 7.7 10*3/uL 4.4-11.0 [facility] Blood erythrocytes count (nu mber/volume)Ordered By: Melvin Trujillo on 01-21-2023 RBC (Bld) [#/Vol] 4.43 10*6/uL 4.6-6.2 [facility] Blood hemoglobin measurement (mass/volume)Ordered By: Melvin Trujillo on 01-21-2023 Hemoglobin (Bld) [Mass/Vol] 14.7 g/dL 13.0-16.5 [facility] Blood lymphocytes/100 leukoc ytesOrdered By: Melvin Trujillo on 01-21-2023 Lymphocytes/100 WBC (Bld) 21.9 % 19-41 [facility] Blood monocytes/100 leukocyt esOrdered By: Melvin Trujillo on 01-21-2023 Monocytes/100 WBC (Bld) 8.5 % 0-10 [facility] Blood platelet mean volumeOr dered By: Melvin Trujillo on 01-21-2023 Platelet mean volume (Bld) [Entitic vol] 10.5 fL 6.2-12.0 [facility] Determination of erythrocyte mean corpuscular volume (MCV)Ordered By: Melvin Trujillo on 01-21-2023 MCV (RBC) [Entitic vol] 98.2 fL 80-94 [facility] Hematocrit Auto (Bld) [Volum e fraction]Ordered By: Melvin Trujillo on 01-21-2023 Hematocrit (Bld) [Volume fraction] 43.5 % 40-54 [facility] Laboratory - Chemistry and C hemistry - challengeOrdered By: Melvin Trujillo on 01-21-2023 ALP [Catalytic activity/Vol] 69 U/L 45-117 [facility] ALT [Catalytic activity/Vol] 26 U/L 16-61 [facility] CO2 [Moles/Vol] 30.0 mmol/L 21.0-32.0 [facility] Globulin (S) [Mass/Vol] 3.3 g/dL 2.2-4.2 [facility] Magnesium [Mass/Vol] 2.3 mg/dL 1.6-2.6 [facility] Urea nitrogen/Creatinine [Mass ratio] 15.8 mg/mg 10-20 [facility] Laboratory - Hematology and Cell countsOrdered By: Melvin Trujillo on 01-21-2023 Erythrocyte distribution width (RBC) [Entitic vol] 47.8 fL 35.1-43.9 [facility] Erythrocyte distribution width (RBC) [Ratio] 13.2 % 11.6-14.6 [facility] Immature granulocytes/100 WBC (Bld) 0.400 % 0.0-0.9 [facility] Comment on above: IG% - Immature Granu locytes (promyelocytes, myelocytes and metamyelocytes) > 1% indicates that a LEFT SHIFT is Present. MCH (RBC) [Entitic mass] 33.2 pg 27.0-32.0 [facility] Nucleated RBC/100 WBC (Bld) [Ratio] 0 % 0-5 [facility] MCHC Auto (RBC) [Mass/Vol]Or dered By: Melvin Trujillo on 01-21-2023 MCHC (RBC) [Mass/Vol] 33.8 g/dL 32-36 [facility] No Panel InformationOrdered By: Melvin Trujillo on 01-21-2023 Estimated GFR (MDRD) Amer 77 mL/min >60 [facility] Comment on above: GFR Calc Estimated GFR (MDRD) Non-Af Amer 64 mL/min >60 [facility] Comment on above: Non- GFR Calc Thyroid Stimulating Hormone (TSH) 2.18 uIU/mL 0.358-3.74 [facility] Platelets bldOrdered By: Lizabeth Trujillo on 01-21-2023 Platelets (Bld) [#/Vol] 245 10*3/uL 150-450 [facility] Serum or plasma albumin todd urement (mass/volume)Ordered By: Melvin Trujillo on 01-21-2023 Albumin [Mass/Vol] 3.9 g/dL 3.2-5.0 [facility] Serum or plasma albumin/glob ulin mass ratioOrdered By: Melvin Trujillo on 01-21-2023 Albumin/Globulin [Mass ratio] 1.2 {ratio} 0.9-2.4 [facility] Serum or plasma calcium todd urement (mass/volume)Ordered By: Melvin Trujillo on 01-21-2023 Calcium [Mass/Vol] 8.8 mg/dL 8.5-10.1 [facility] Serum or plasma creatinine m easurement (mass/volume)Ordered By: Melvin Trujillo on 01-21-2023 Creatinine [Mass/Vol] 1.20 mg/dL 0.70-1.30 [facility] Comment on above: The validity of the calculated GFR & GFRAA in patients over 70 years has not been determined. Clinical correlation is essential. Serum or plasma urea nitroge n measurement (mass/volume)Ordered By: Melvin Trujillo on 01-21-2023 Urea nitrogen [Mass/Vol] 19 mg/dL 7-18 [facility] Thin prep Papanicolaou smear with manual screeningOrdered By: Melvin Trujillo on 01-21-2023 Thin prep Papanicolaou smear with manual screening 18 U/L 15-37 [facility] Thin prep Papanicolaou smear with manual screening 5 - [facility] SURGICAL PATHOLOGY RESULTSon 11-13-2022 Pathology Report Name JARON MIRELES Pathologist: BRIAN MCGRATH M.D. Date of Procedure: 11/06/2022 Date Received: 11/06/2022 Date Reported 11/13/2022 Submitting Physician: VINAYAK EDMONDS DO Location: [facility] Copy To/Referring/Attendin g: MELVIN TRUJILLO MD Other External # FINAL DIAGNOSIS RECTOSIGMOID COLON, POLYP, POLYPECTOMY: -- HYPERPLASTIC POLYP. Electronically Signed Out By BRIAN MCGRATH M.D./MAKENZIE By the signature on this report, the individual or group listed as making the Final Interpretation/Diagno sis certifies that they have reviewed this case. Diagnostic interpretation performed at [place] [id number] Clinical History: Clinical Diagnosis History COLONOSCOPY Specimens Submitted As: A: RECTO-SIGMOID JUNCTION POLYP Gross Description: Received in formalin, labeled with the patient's name and hospital number and rectosigmoid polyp, is a fragment of engel, soft tissue measuring 0.4 x 0.3 x 0.2 cm. The specimen is submitted in toto in one cassette. MKM mkm/11/08/2022 [facility] Department of Pathology [address] [place] [address] Colonoscopyon 11-06-2022 Colonoscopy PATIENTNAME Patient Name: Jaron Mireles EXAMDATE Procedure Date: 11/06/2022 2:21 PM PATIENTID PATIENTACCOUNTNUM PATIENTDOB Date of : 1955 ADMITTYPE Admit Type: Outpatient PATIENTROOM Site: [facility] Endo Proc RM 1 ETHNICITY Ethnicity: Not or RACE Race: White PROVDR Attending MD: Vinayak Edmonds DO, [id number] ENDOPROCEDURENAME Procedure: Colonoscopy INDICATION Indications: Surveillance: Personal history of colonic polyps (unknown histology) on last colonoscopy more than 5 years ago PRIMARYPROVIDER Providers: Vinayak Edmonds DO (Doctor), Damaris Ferrari RN (Nurse), Joel Sanchez, Solution Lead EDREFPROVIDER Referring: Melvin Trujillo MD CURRENT_MEDS Medicines: [...] results. CPT_CODES Procedure Code(s): --- Professional --- 12852, Colonoscopy, flexible; with biopsy, single or multiple 21038, Moderate sedation; each additional 15 minutes intraservice time G0500, Moderate sedation services provided by the same physician or other qualified health patient care representative performing a gastrointestinal endoscopic service that sedation supports, requiring the presence of an independent trained observer to assist in the monitoring of the patient's level of consciousness and physiological status; initial 15 minutes of intra-service time; patient age 5 years or older (additional (more content not included)... Normal [facility] Vinayak Edmonds DO - 12/02/2022 Patient Name: Jaron Mireles Procedure Date: 11/06/2022 2:21 PM Date of : 1955 Admit Type: Outpatient Site: [facility] 1 Ethnicity: Not or Race: White Attending MD: Vinayak Edmonds DO, [id number] Procedure: Colonoscopy Indications: Surveillance: Personal history of colonic polyps (unknown histology) on last colonoscopy more than 5 years ago Providers: Vinayak Edmonds DO (Doctor), Damaris Ferrari RN (Nurse), Joel Sanchez, Solution Lead Referring: Melvin Trujillo MD Medicines: Midazolam 7.5 [...] pathology results. Procedure Code(s): --- Professional --- 07893, Colonoscopy, flexible; with biopsy, single or multiple 55395, Moderate sedation; each additional 15 minutes intraservice time G0500, Moderate sedation services provided by the same physician or other qualified health patient care representative performing a gastrointestinal endoscopic service that sedation supports, requiring the presence of an independent trained observer to assist in the monitoring of the patient's level of consciousness and physiological status; initial 15 minutes of intra-service time; patient age 5 years or older (additional time may be reported with 16981, as appropriate) Diagnosis Code(s): --- Professional --- Z12.11, Encounter for screening for malignant neoplasm of colon Z86.010, Personal history of colonic polyps (more content not included)... [facility] Work Phone: Radiology Study observation (narrative) [facility] Work Phone: ColonoscopyOrdered By: Vinayak Edmonds on 11-06-2022 [facility] Work Phone: [facility] Surgical Pathology Depar tmenton 11-06-2022 [facility] Surgical Pathology Department Name JARON MIRELESCandelaria Pathologist: BRIAN MCGRATH M.D. Date of Procedure: 11/06/2022 Date Received: 11/06/2022 Date Reported 11/13/2022 Submitting Physician: VINAYAK EDMONDS DO Location: [facility] Copy To/Referring/Attendin g: MELVIN TRUJILLO MD Other External # FINAL DIAGNOSIS RECTOSIGMOID COLON, POLYP, POLYPECTOMY: -- HYPERPLASTIC POLYP. Electronically Signed Out By BRIAN MCGRATH M.D./MAKENZIE By the signature on this report, the individual or group listed as making the Final Interpretation/Diagno sis certifies that they have reviewed this case. Diagnostic interpretation performed at [address] [place] [address] Clinical History: Clinical Diagnosis History COLONOSCOPY Specimens Submitted As: A: RECTO-SIGMOID JUNCTION POLYP Gross Description: Received in formalin, labeled with the patient's name and hospital number and rectosigmoid polyp, is a fragment of engel, soft tissue measuring 0.4 x 0.3 x 0.2 cm. The specimen is submitted in toto in one cassette. MKM mkm/11/08/2022 [facility] Department of Pathology [id number] [place] [address] Normal [facility] Comment on above: Performed By: #### [facility] #### [facility] Surgical Pathology Department [address] [place] [address] Absolute lymphocyte countOrd ered By: Dr. Trujillo on 10-11-2022 Lymphocytes Auto (Unsp spec) [#/Vol] 2.30 10*3/uL 0.83-4.51 [facility] Basophil percentageOrdered B y: Chris Pineda on 10-11-2022 Cholesterol [Mass/Vol] 128 mg/dL <200 [facility] Comment on above: <200 mg/dL Desirable 200-240 mg/dL Borderline >240 mg/dL High Risk Triglyceride [Mass/Vol] 73 mg/dL <199 [facility] Comment on above: The drugs N-Acetylcy steine and Metamizole may falsely depress this assay.Serum Triglycerides Reference Interval Normal <150 mg/dL Borderline high 150 - 199 mg/dL High 200 - 499 mg/dL Very High > or = 500 mg/dL Basophil percentageOrdered B y: Dr. Trujillo on 10-11-2022 Basophils/100 WBC (Bld) 1.2 % 0-1 [facility] Bilirubin [Mass/Vol] 0.60 mg/dL 0.20-1.00 [facility] Comment on above: For patients on eltr ombopag therapy, use of Dimension [place] TBIL is not recommended. Chloride [Moles/Vol] 105 mmol/L 98-107 [facility] Eosinophils/100 WBC (Bld) 2.6 % 0-5 [facility] Glucose [Mass/Vol] 98 mg/dL 74-106 [facility] Neutrophils (Bld) [#/Vol] 4.7 10*3/uL 2.0-7.7 [facility] Neutrophils/100 WBC (Bld) 58.8 % 47-70 [facility] Potassium [Moles/Vol] 4.5 mmol/L 3.5-5.1 [facility] Protein [Mass/Vol] 7.1 g/dL 6.4-8.2 [facility] Sodium [Moles/Vol] 140 mmol/L 136-145 [facility] WBC (Bld) [#/Vol] 8.0 10*3/uL 4.4-11.0 [facility] Blood erythrocytes count (nu mber/volume)Ordered By: Dr. Trujillo on 10-11-2022 RBC (Bld) [#/Vol] 4.72 10*6/uL 4.6-6.2 [facility] Blood hemoglobin measurement (mass/volume)Ordered By: Dr. Trujillo on 10-11-2022 Hemoglobin (Bld) [Mass/Vol] 15.2 g/dL 13.0-16.5 [facility] Blood lymphocytes/100 leukoc ytesOrdered By: Dr. Trujillo on 10-11-2022 Lymphocytes/100 WBC (Bld) 28.6 % 19-41 [facility] Blood monocytes/100 leukocyt esOrdered By: Dr. Trujillo on 10-11-2022 Monocytes/100 WBC (Bld) 7.8 % 0-10 [facility] Blood platelet mean volumeOr dered By: Dr. Trujillo on 10-11-2022 Platelet mean volume (Bld) [Entitic vol] 10.1 fL 6.2-12.0 [facility] Determination of erythrocyte mean corpuscular volume (MCV)Ordered By: Dr. Trujillo on 10-11-2022 MCV (RBC) [Entitic vol] 96.2 fL 80-94 [facility] Direct bilirubinOrdered By: Dr. Trujillo on 10-11-2022 Bilirubin.direct [Mass/Vol] 0.19 mg/dL 0.00-0.30 [facility] Hematocrit Auto (Bld) [Volum e fraction]Ordered By: Dr. Trujillo on 10-11-2022 Hematocrit (Bld) [Volume fraction] 45.4 % 40-54 [facility] Laboratory - Chemistry and C hemistry - challengeOrdered By: Dr. Trujillo on 10-11-2022 ALP [Catalytic activity/Vol] 74 U/L 45-117 [facility] ALT [Catalytic activity/Vol] 21 U/L 16-61 [facility] CO2 [Moles/Vol] 29.0 mmol/L 21.0-32.0 [facility] Free T4 [Mass/Vol] 0.88 ng/dL 0.76-1.46 [facility] Globulin (S) [Mass/Vol] 3.1 g/dL 2.2-4.2 [facility] Urea nitrogen/Creatinine [Mass ratio] 18.8 mg/mg 10-20 [facility] Laboratory - Hematology and Cell countsOrdered By: Dr. Trujillo on 10-11-2022 Erythrocyte distribution width (RBC) [Entitic vol] 45.3 fL 35.1-43.9 [facility] Erythrocyte distribution width (RBC) [Ratio] 12.7 % 11.6-14.6 [facility] Immature granulocytes/100 WBC (Bld) 1.000 % 0.0-0.9 [facility] Comment on above: IG% - Immature Granu locytes (promyelocytes, myelocytes and metamyelocytes) > 1% indicates that a LEFT SHIFT is Present. MCH (RBC) [Entitic mass] 32.2 pg 27.0-32.0 [facility] Nucleated RBC/100 WBC (Bld) [Ratio] 0 % 0-5 [facility] MCHC Auto (RBC) [Mass/Vol]Or dered By: Dr. Trujillo on 10-11-2022 MCHC (RBC) [Mass/Vol] 33.5 g/dL 32-36 [facility] No Panel InformationOrdered By: Dr. Trujillo on 10-11-2022 Anti-Nuclear Antibody Screen Negative Negative [facility] Comment on above: Performed at: [address] [id number] Director: Baldo Jauregui PhD, Phone: [phone] Estimated GFR (MDRD) Amer 94 mL/min >60 [facility] Comment on above: GFR Calc Estimated GFR (MDRD) Non-Af Amer 78 mL/min >60 [facility] Comment on above: Non- GFR Calc Thyroid Stimulating Hormone (TSH) 2.28 uIU/mL 0.358-3.74 [facility] Platelets bldOrdered By: Dr. Trujillo on 10-11-2022 Platelets (Bld) [#/Vol] 249 10*3/uL 150-450 [facility] Serum or plasma albumin todd urement (mass/volume)Ordered By: Dr. Trujillo on 10-11-2022 Albumin [Mass/Vol] 4.0 g/dL 3.2-5.0 [facility] Serum or plasma albumin/glob ulin mass ratioOrdered By: Dr. Trujillo on 10-11-2022 Albumin/Globulin [Mass ratio] 1.3 {ratio} 0.9-2.4 [facility] Serum or plasma calcium todd urement (mass/volume)Ordered By: Dr. Trujillo on 10-11-2022 Calcium [Mass/Vol] 9.2 mg/dL 8.5-10.1 [facility] Serum or plasma cholesterol in HDL measurement (mass/volume)Ordered By: Chris Pineda on 10-11-2022 Cholesterol in HDL [Mass/Vol] 51 mg/dL >40 [facility] Comment on above: The drugs N-Acetylcy steine and Metamizole may falsely depress this assay. Reference Range HDL <40 mg/dL Low HDL Cholesterol HDL >or= 60 mg/dL High HDL Cholesterol Serum or plasma cholesterol in VLDL measurement (mass/volume)Ordered By: Chris Pineda on 10-11-2022 Cholesterol in VLDL [Mass/Vol] 15 mg/dL 5-40 [facility] Serum or plasma creatinine m easurement (mass/volume)Ordered By: Dr. Trujillo on 10-11-2022 Creatinine [Mass/Vol] 1.01 mg/dL 0.70-1.30 [facility] Comment on above: The validity of the calculated GFR & GFRAA in patients over 70 years has not been determined. Clinical correlation is essential. Serum or plasma low density lipoprotein (LDL) cholesterol measurement (mass/volume)Ordered By: Chris Pineda on 10-11-2022 Cholesterol in LDL [Mass/Vol] 62 mg/dL 0-130 [facility] Serum or plasma urea nitroge n measurement (mass/volume)Ordered By: Dr. Trujillo on 10-11-2022 Urea nitrogen [Mass/Vol] 19 mg/dL 7-18 [facility] Thin prep Papanicolaou smear with manual screeningOrdered By: Dr. Trujillo on 10-11-2022 Thin prep Papanicolaou smear with manual screening 14 U/L 15-37 [facility] Thin prep Papanicolaou smear with manual screening 6 5-15 [facility] No Panel InformationOrdered By: Dr. Valladares on 07-15-2022 Prostate Specific Antigen Screen 1.72 ng/mL 0.00-4.00 [facility] Comment on above: This test was perfor med using the TPSA assay method for the[employer] chemistry system. Values obtained with differentassay methods cannot be used interchangably.When changing PSA assays in the course of monitoring apatient, additional sequential testing should be carriedout to confirm baseline values. Absolute lymphocyte countOrd ered By: Dr. Azevedo on 05-16-2022 Lymphocytes Auto (Unsp spec) [#/Vol] 2.24 10*3/uL 0.83-4.51 [facility] Basophil percentageOrdered B y: Dr. Azevedo on 05-16-2022 Basophils/100 WBC (Bld) 0.8 % 0-1 [facility] Chloride [Moles/Vol] 107 mmol/L 98-107 [facility] Eosinophils/100 WBC (Bld) 3.2 % 0-5 [facility] Glucose [Mass/Vol] 100 mg/dL 74-106 [facility] Comment on above: Fasting Glucose resu lt from 100 to 125 mg/dL suggests IMPAIRED HOMEOSTASIS per A.D.A. criteria. Neutrophils (Bld) [#/Vol] 6.2 10*3/uL 2.0-7.7 [facility] Neutrophils/100 WBC (Bld) 64.4 % 47-70 [facility] Potassium [Moles/Vol] 4.2 mmol/L 3.5-5.1 [facility] Sodium [Moles/Vol] 141 mmol/L 136-145 [facility] WBC (Bld) [#/Vol] 9.6 10*3/uL 4.4-11.0 [facility] Blood erythrocytes count (nu mber/volume)Ordered By: Dr. Azevedo on 05-16-2022 RBC (Bld) [#/Vol] 4.92 10*6/uL 4.6-6.2 [facility] Blood hemoglobin measurement (mass/volume)Ordered By: Dr. Azevedo on 05-16-2022 Hemoglobin (Bld) [Mass/Vol] 15.9 g/dL 13.0-16.5 [facility] Blood lymphocytes/100 leukoc ytesOrdered By: Dr. Azevedo on 05-16-2022 Lymphocytes/100 WBC (Bld) 23.3 % 19-41 [facility] Blood monocytes/100 leukocyt esOrdered By: Dr. Azevedo on 05-16-2022 Monocytes/100 WBC (Bld) 7.9 % 0-10 [facility] Blood platelet mean volumeOr dered By: Dr. Azevedo on 05-16-2022 Platelet mean volume (Bld) [Entitic vol] 10.3 fL 6.2-12.0 [facility] Determination of erythrocyte mean corpuscular volume (MCV)Ordered By: Dr. Azevedo on 05-16-2022 MCV (RBC) [Entitic vol] 95.7 fL 80-94 [facility] Hematocrit Auto (Bld) [Volum e fraction]Ordered By: Dr. Azevedo on 05-16-2022 Hematocrit (Bld) [Volume fraction] 47.1 % 40-54 [facility] Laboratory - Chemistry and C hemistry - challengeOrdered By: Dr. Azevedo on 05-16-2022 CO2 [Moles/Vol] 30.0 mmol/L 21.0-32.0 [facility] Urea nitrogen/Creatinine [Mass ratio] 17.3 mg/mg 10-20 [facility] Laboratory - Hematology and Cell countsOrdered By: Dr. Azevedo on 05-16-2022 Erythrocyte distribution width (RBC) [Entitic vol] 46.1 fL 35.1-43.9 [facility] Erythrocyte distribution width (RBC) [Ratio] 13.2 % 11.6-14.6 [facility] Immature granulocytes/100 WBC (Bld) 0.400 % 0.0-0.9 [facility] Comment on above: IG% - Immature Granu locytes (promyelocytes, myelocytes and metamyelocytes) > 1% indicates that a LEFT SHIFT is Present. MCH (RBC) [Entitic mass] 32.3 pg 27.0-32.0 [facility] Nucleated RBC/100 WBC (Bld) [Ratio] 0 % 0-5 [facility] MCHC Auto (RBC) [Mass/Vol]Or dered By: Dr. Azevedo on 05-16-2022 MCHC (RBC) [Mass/Vol] 33.8 g/dL 32-36 [facility] No Panel InformationOrdered By: Dr. Azevedo on 05-16-2022 Estimated GFR (MDRD) Amer 86 mL/min >60 [facility] Comment on above: GFR Calc Estimated GFR (MDRD) Non-Af Amer 71 mL/min >60 [facility] Comment on above: Non- GFR Calc Platelets bldOrdered By: Dr. Azevedo on 05-16-2022 Platelets (Bld) [#/Vol] 295 10*3/uL 150-450 [facility] Serum or plasma calcium todd urement (mass/volume)Ordered By: Dr. Azevedo on 05-16-2022 Calcium [Mass/Vol] 9.3 mg/dL 8.5-10.1 [facility] Serum or plasma creatinine m easurement (mass/volume)Ordered By: Dr. Azevedo on 05-16-2022 Creatinine [Mass/Vol] 1.10 mg/dL 0.70-1.30 [facility] Comment on above: The validity of the calculated GFR & GFRAA in patients over 70 years has not been determined. Clinical correlation is essential. Serum or plasma urea nitroge n measurement (mass/volume)Ordered By: Dr. Azevedo on 05-16-2022 Urea nitrogen [Mass/Vol] 19 mg/dL 7-18 [facility] Thin prep Papanicolaou smear with manual screeningOrdered By: Dr. Azevedo on 05-16-2022 Thin prep Papanicolaou smear with manual screening 4 5-15 [facility] Basophil percentageon 06-28- 2022 Bilirubin [Mass/Vol] 0.40 mg/dL 0.20-1.00 [facility] Work Phone: Comment on above: For patients on eltr ombopag therapy, use of Dimension [place] TBIL is not recommended. Chloride [Moles/Vol] 103 mmol/L 98-107 [facility] Work Phone: Glucose [Mass/Vol] 92 mg/dL 74-106 [facility] Work Phone: [phone] Potassium [Moles/Vol] 4.7 mmol/L 3.5-5.1 [facility] Work Phone: Protein [Mass/Vol] 7.5 g/dL 6.4-8.2 [facility] Work Phone: Sodium [Moles/Vol] 138 mmol/L 136-145 [facility] Work Phone: Laboratory - Chemistry and C hemistry - challengeon 12-04-2021 ALP [Catalytic activity/Vol] 80 U/L 45-117 [facility] Work Phone: ALT [Catalytic activity/Vol] 28 U/L 16-61 [facility] Work Phone: CO2 [Moles/Vol] 30.0 mmol/L 21.0-32.0 [facility] Work Phone: Cobalamin (Vitamin B12) [Mass/Vol] 545 pg/mL 211-911 [facility] Work Phone: Free T4 [Mass/Vol] 0.99 ng/dL 0.76-1.46 [facility] Work Phone: Globulin (S) [Mass/Vol] 3.2 g/dL 2.2-4.2 [facility] Work Phone: Urea nitrogen/Creatinine [Mass ratio] 17.7 mg/mg 10-20 [facility] Work Phone: No Panel Informationon 12-04 Estimated GFR (MDRD) Amer 100 mL/min >60 [facility] Work Phone: Comment on above: GFR Calc Estimated GFR (MDRD) Non-Af Amer 83 mL/min >60 [facility] Work Phone: Comment on above: Non- GFR Calc Vitamin D 25-Hydroxy 59.1 ng/mL [facility] Work Phone: Comment on above: Vitamin D 25(OH) Sta tus Range Deficiency <20 ng/mL (50nmol/L) Insufficiency 20 - 30 ng/mL (50 - 75 nmol/L) Sufficiency 30 - 100 ng/mL (75 - 250 nmol/L) Toxicity >100 ng/mL (>250 nmol/L) Serum or plasma albumin todd urement (mass/volume)on 12-04-2021 Albumin [Mass/Vol] 4.3 g/dL 3.2-5.0 [facility] Work Phone: Serum or plasma albumin/glob ulin mass ratioon 12-04-2021 Albumin/Globulin [Mass ratio] 1.3 {ratio} 0.9-2.4 [facility] Work Phone: Serum or plasma calcium todd urement (mass/volume)on 12-04-2021 Calcium [Mass/Vol] 9.4 mg/dL 8.5-10.1 [facility] Work Phone: Serum or plasma creatinine m easurement (mass/volume)on 12-04-2021 Creatinine [Mass/Vol] 0.96 mg/dL 0.70-1.30 [facility] Work Phone: Comment on above: The validity of the calculated GFR & GFRAA in patients over 70 years has not been determined. Clinical correlation is essential. Serum or plasma urea nitroge n measurement (mass/volume)on 12-04-2021 Urea nitrogen [Mass/Vol] 17 mg/dL 7-18 [facility] Work Phone: Thin prep Papanicolaou smear with manual screeningon 12-04-2021 Thin prep Papanicolaou smear with manual screening 21 U/L 15-37 [facility] Work Phone: Thin prep Papanicolaou smear with manual screening 5 5-15 [facility] Work Phone: Absolute lymphocyte counton 11-28-2021 Lymphocytes Auto (Unsp spec) [#/Vol] 2.17 10*3/uL 0.83-4.51 [facility] Work Phone: Basophil percentageon 2021 Basophils/100 WBC (Bld) 0.7 % 0-1 [facility] Work Phone: Bilirubin [Mass/Vol] 0.60 mg/dL 0.20-1.00 [facility] Work Phone: Comment on above: For patients on eltr ombopag therapy, use of Dimension [place] TBIL is not recommended. Chloride [Moles/Vol] 105 mmol/L 98-107 [facility] Work Phone: Cholesterol [Mass/Vol] 119 mg/dL <200 [facility] Work Phone: Comment on above: <200 mg/dL Desirable 200-240 mg/dL Borderline >240 mg/dL High Risk Eosinophils/100 WBC (Bld) 3.2 % 0-5 [facility] Work Phone: Glucose [Mass/Vol] 91 mg/dL 74-106 [facility] Work Phone: Neutrophils (Bld) [#/Vol] 5.4 10*3/uL 2.0-7.7 [facility] Work Phone: Neutrophils/100 WBC (Bld) 62.2 % 47-70 [facility] Work Phone: Potassium [Moles/Vol] 4.4 mmol/L 3.5-5.1 [facility] Work Phone: Protein [Mass/Vol] 7.0 g/dL 6.4-8.2 [facility] Work Phone: Sodium [Moles/Vol] 139 mmol/L 136-145 [facility] Work Phone: Triglyceride [Mass/Vol] 89 mg/dL <199 [facility] Work Phone: Comment on above: The drugs N-Acetylcy steine and Metamizole may falsely depress this assay.Serum Triglycerides Reference Interval Normal <150 mg/dL Borderline high 150 - 199 mg/dL High 200 - 499 mg/dL Very High > or = 500 mg/dL WBC (Bld) [#/Vol] 8.7 10*3/uL 4.4-11.0 [facility] Work Phone: Blood erythrocytes count (nu mber/volume)on 11-28-2021 RBC (Bld) [#/Vol] 4.75 10*6/uL 4.6-6.2 [facility] Work Phone: Blood hemoglobin measurement (mass/volume)on 11-28-2021 Hemoglobin (Bld) [Mass/Vol] 15.4 g/dL 13.0-16.5 [facility] Work Phone: Blood lymphocytes/100 leukoc yteson 11-28-2021 Lymphocytes/100 WBC (Bld) 24.9 % 19-41 [facility] Work Phone: Blood monocytes/100 leukocyt eson 11-28-2021 Monocytes/100 WBC (Bld) 8.5 % 0-10 [facility] Work Phone: Blood platelet mean volumeon 11-28-2021 Platelet mean volume (Bld) [Entitic vol] 10.1 fL 6.2-12.0 [facility] Work Phone: Determination of erythrocyte mean corpuscular volume (MCV)on 11-28-2021 MCV (RBC) [Entitic vol] 95.6 fL 80-94 [facility] Work Phone: Direct bilirubinon 2 Bilirubin.direct [Mass/Vol] 0.19 mg/dL 0.00-0.30 [facility] Work Phone: Hematocrit Auto (Bld) [Volum e fraction]on 11-28-2021 Hematocrit (Bld) [Volume fraction] 45.4 % 40-54 [facility] Work Phone: Laboratory - Chemistry and C hemistry - challengeon 11-28-2021 ALP [Catalytic activity/Vol] 79 U/L 45-117 [facility] Work Phone: ALT [Catalytic activity/Vol] 25 U/L 16-61 [facility] Work Phone: [phone] CO2 [Moles/Vol] 30.0 mmol/L 21.0-32.0 [facility] Work Phone: Globulin (S) [Mass/Vol] 3.0 g/dL 2.2-4.2 [facility] Work Phone: Urea nitrogen/Creatinine [Mass ratio] 23.5 mg/mg 10-20 [facility] Work Phone: Laboratory - Hematology and Cell countson 11-28-2021 Erythrocyte distribution width (RBC) [Entitic vol] 44.9 fL 35.1-43.9 [facility] Work Phone: Erythrocyte distribution width (RBC) [Ratio] 12.8 % 11.6-14.6 [facility] Work Phone: Immature granulocytes/100 WBC (Bld) 0.500 % 0.0-0.9 [facility] Work Phone: Comment on above: IG% - Immature Granu locytes (promyelocytes, myelocytes and metamyelocytes) > 1% indicates that a LEFT SHIFT is Present. MCH (RBC) [Entitic mass] 32.4 pg 27.0-32.0 [facility] Work Phone: Nucleated RBC/100 WBC (Bld) [Ratio] 0 % 0-5 [facility] Work Phone: MCHC Auto (RBC) [Mass/Vol]on 11-28-2021 MCHC (RBC) [Mass/Vol] 33.9 g/dL 32-36 [facility] Work Phone: No Panel Informationon 11-28 Estimated GFR (MDRD) Amer 103 mL/min >60 [facility] Work Phone: Comment on above: GFR Calc Estimated GFR (MDRD) Non-Af Amer 85 mL/min >60 [facility] Work Phone: Comment on above: Non- GFR Calc Thyroid Stimulating Hormone (TSH) 2.66 uIU/mL 0.358-3.74 [facility] Work Phone: Platelets bldon 11-28-2021 Platelets (Bld) [#/Vol] 243 10*3/uL 150-450 [facility] Work Phone: Serum or plasma albumin todd urement (mass/volume)on 11-28-2021 Albumin [Mass/Vol] 4.0 g/dL 3.2-5.0 [facility] Work Phone: Serum or plasma calcium todd urement (mass/volume)on 11-28-2021 Calcium [Mass/Vol] 9.0 mg/dL 8.5-10.1 [facility] Work Phone: Serum or plasma cholesterol in HDL measurement (mass/volume)on 11-28-2021 Cholesterol in HDL [Mass/Vol] 43 mg/dL >40 [facility] Work Phone: Comment on above: The drugs N-Acetylcy steine and Metamizole may falsely depress this assay. Reference Range HDL <40 mg/dL Low HDL Cholesterol HDL >or= 60 mg/dL High HDL Cholesterol Serum or plasma cholesterol in VLDL measurement (mass/volume)on 11-28-2021 Cholesterol in VLDL [Mass/Vol] 18 mg/dL 5-40 [facility] Work Phone: Serum or plasma creatinine m easurement (mass/volume)on 11-28-2021 Creatinine [Mass/Vol] 0.94 mg/dL 0.70-1.30 [facility] Work Phone: Comment on above: The validity of the calculated GFR & GFRAA in patients over 70 years has not been determined. Clinical correlation is essential. Serum or plasma low density lipoprotein (LDL) cholesterol measurement (mass/volume)on 11-28-2021 Cholesterol in LDL [Mass/Vol] 58 mg/dL 0-130 [facility] Work Phone: Serum or plasma urea nitroge n measurement (mass/volume)on 11-28-2021 Urea nitrogen [Mass/Vol] 22 mg/dL 7-18 [facility] Work Phone: Thin prep Papanicolaou smear with manual screeningon 11-28-2021 Thin prep Papanicolaou smear with manual screening 19 U/L 15-37 [facility] Work Phone: Thin prep Papanicolaou smear with manual screening 4 5-15 [facility] Work Phone: Absolute lymphocyte counton 07-27-2021 Lymphocytes Auto (Unsp spec) [#/Vol] 2.44 10*3/uL 0.83-4.51 [facility] Work Phone: Basophil percentageon 2021 Basophils/100 WBC (Bld) 0.7 % 0-1 [facility] Work Phone: Bilirubin [Mass/Vol] 0.50 mg/dL 0.20-1.00 [facility] Work Phone: Comment on above: For patients on eltr ombopag therapy, use of Dimension [place] TBIL is not recommended. Chloride [Moles/Vol] 108 mmol/L 98-107 [facility] Work Phone: Eosinophils/100 WBC (Bld) 5.3 % 0-5 [facility] Work Phone: Glucose [Mass/Vol] 82 mg/dL 74-106 [facility] Work Phone: Neutrophils (Bld) [#/Vol] 4.4 10*3/uL 2.0-7.7 [facility] Work Phone: Neutrophils/100 WBC (Bld) 55.0 % 47-70 [facility] Work Phone: [phone] Potassium [Moles/Vol] 3.8 mmol/L 3.5-5.1 [facility] Work Phone: Protein [Mass/Vol] 6.5 g/dL 6.4-8.2 [facility]: Sodium [Moles/Vol] 139 mmol/L 136-145 [facility] Work Phone: WBC (Bld) [#/Vol] 8.1 10*3/uL 4.4-11.0 [facility] Work Phone: Blood erythrocytes count (nu mber/volume)on 07-27-2021 RBC (Bld) [#/Vol] 4.62 10*6/uL 4.6-6.2 [facility]: Blood hemoglobin measurement (mass/volume)on 07-27-2021 Hemoglobin (Bld) [Mass/Vol] 14.4 g/dL 13.0-16.5 [facility] Work Phone: Blood lymphocytes/100 leukoc yteson 07-27-2021 Lymphocytes/100 WBC (Bld) 30.3 % 19-41 [facility] Work Phone: Blood monocytes/100 leukocyt eson 07-27-2021 Monocytes/100 WBC (Bld) 8.2 % 0-10 [facility] Work Phone: Blood platelet mean volumeon 07-27-2021 Platelet mean volume (Bld) [Entitic vol] 10.3 fL 6.2-12.0 [facility] Work Phone: [phone] Determination of erythrocyte mean corpuscular volume (MCV)on 07-27-2021 MCV (RBC) [Entitic vol] 92.9 fL 80-94 [facility] Work Phone: Hematocrit Auto (Bld) [Volum e fraction]on 07-27-2021 Hematocrit (Bld) [Volume fraction] 42.9 % 40-54 [facility] Work Phone: Laboratory - Chemistry and C hemistry - challengeon 07-27-2021 ALP [Catalytic activity/Vol] 77 U/L 45-117 [facility] Work Phone: [phone] ALT [Catalytic activity/Vol] 22 U/L 16-61 [facility] Work Phone: [phone] CO2 [Moles/Vol] 27.0 mmol/L 21.0-32.0 [facility] Work Phone: [phone] Globulin (S) [Mass/Vol] 3.0 g/dL 2.2-4.2 [facility] Work Phone: [phone] Urea nitrogen/Creatinine [Mass ratio] 20.7 mg/mg 10-20 [facility] Work Phone: Laboratory - Hematology and Cell countson 07-27-2021 Erythrocyte distribution width (RBC) [Entitic vol] 44.6 fL 35.1-43.9 [facility] Work Phone: [phone] Erythrocyte distribution width (RBC) [Ratio] 12.9 % 11.6-14.6 [facility] Work Phone: [phone] Immature granulocytes/100 WBC (Bld) 0.500 % 0.0-0.9 [facility] Work Phone: Comment on above: IG% - Immature Granu locytes (promyelocytes, myelocytes and metamyelocytes) > 1% indicates that a LEFT SHIFT is Present. MCH (RBC) [Entitic mass] 31.2 pg 27.0-32.0 [facility] Work Phone: Nucleated RBC/100 WBC (Bld) [Ratio] 0 % 0-5 [facility] Work Phone: [phone] MCHC Auto (RBC) [Mass/Vol]on 07-27-2021 MCHC (RBC) [Mass/Vol] 33.6 g/dL 32-36 [facility] Work Phone: No Panel Informationon 07-27 Estimated Creatinine Clearance Calc 102.75 ml/min [facility] Work Phone: Estimated GFR (MDRD) Amer 120 mL/min >60 [facility] Work Phone: Comment on above: GFR Calc Estimated GFR (MDRD) Non-Af Amer 99 mL/min >60 [facility] Work Phone: Comment on above: Non- GFR Calc Platelets bldon 07-27-2021 Platelets (Bld) [#/Vol] 248 10*3/uL 150-450 [facility] Work Phone: Serum or plasma albumin todd urement (mass/volume)on 07-27-2021 Albumin [Mass/Vol] 3.5 g/dL 3.2-5.0 [facility] Work Phone: Serum or plasma albumin/glob ulin mass ratioon 07-27-2021 Albumin/Globulin [Mass ratio] 1.2 {ratio} 0.9-2.4 [facility] Work Phone: Serum or plasma calcium todd urement (mass/volume)on 07-27-2021 Calcium [Mass/Vol] 8.6 mg/dL 8.5-10.1 [facility] Work Phone: Serum or plasma creatinine m easurement (mass/volume)on 07-27-2021 Creatinine [Mass/Vol] 0.82 mg/dL 0.70-1.30 [facility] Work Phone: Comment on above: The validity of the calculated GFR & GFRAA in patients over 70 years has not been determined. Clinical correlation is essential. Serum or plasma urea nitroge n measurement (mass/volume)on 07-27-2021 Urea nitrogen [Mass/Vol] 17 mg/dL -18 [facility] Work Phone: Thin prep Papanicolaou smear with manual screeningon 07-27-2021 Thin prep Papanicolaou smear with manual screening 16 U/L 15-37 [facility] Work Phone: Thin prep Papanicolaou smear with manual screening 4 5-15 [facility] Work Phone: No Panel Informationon 07-26 Troponin I High Sensitivity 6 pg/mL 3.0-78.0 [facility] Work Phone: Comment on above: Please Note: New Fatimah t Units and Gender Specific Reference Ranges. For more information see Policy Stat Procedure [place] High Sensitivity Troponin (TNIH) and attachments. D-Dimer Quantitative (PE/DVT) 0.30 FEU/ug/m 0.27-0.49 [facility] Work Phone: Comment on above: NORMAL D-Dimer level (<0.50) indicates no DVT or PE. Whole blood hemoglobin A1c/t otal hemoglobin ratio (mass fraction)on 07-26-2021 HbA1c (Bld) [Mass fraction] 5.7 % 3.8-5.6 [facility] Work Phone: Comment on above: Normal < 5.7 % Predi abetic 5.7 - 6.4 % Diabetic >or= 6.5 % Please note range changes. EKGon 03-08-2019 Ordered by an unspecified provider. [facility] BMPon 03-06-2019 Anion gap [Moles/Vol] 12 mmol/L 10 - 2 0 mmol/L [facility] Calcium [Mass/Vol] 9.2 mg/dL 8.4 - 10. 2 mg/dL [facility] Chloride [Moles/Vol] 106 mmol/L 98 - 10 8 mmol/L [facility] Creatinine [Mass/Vol] 1.02 mg/dL 0.8 - 1.3 mg/dL [facility] GFR/1.73 sq M predicted among non-blacks MDRD (S/P/Bld) [Vol rate/Area] The eGFR should be used for monitoring renal function only and not for medication dosing. [facility] GFR/1.73 sq M.predicted CKD-EPI (S/P/Bld) [Vol rate/Area] 77 >=60 mL/min/1.[address] [facility] Glucose [Mass/Vol] 134 mg/dL High 65 - 99 mg/dL [facility] HCO3 [Moles/Vol] 27 mmol/L 21 - 32 mmol/L [facility] Potassium [Moles/Vol] 4.0 mmol/L 3.5 - 5.1 mmol/L [facility] Sodium [Moles/Vol] 141 mmol/L 135 - 145 mmol/L [facility] Urea nitrogen [Mass/Vol] 16 mg/dL 8 - 25 mg/dL [facility] Urea nitrogen/Creatinine [Mass ratio] 15.7 mg/mg [facility] CBC WITH AUTO DIFFERENTIALon 03-06-2019 Basophils (Bld) [#/Vol] 0.06 10*3/uL [facility] Basophils/100 WBC (Bld) 0.6 % [facility] Eosinophils (Bld) [#/Vol] 0.26 10*3/uL [facility] Eosinophils/100 WBC (Bld) 2.7 % [facility] Erythrocyte distribution width (RBC) [Entitic vol] 12.7 % 11.6 - 14.8 % [facility] Hematocrit (Bld) [Volume fraction] 43.5 % 41 - 53 % [facility] Hemoglobin (Bld) [Mass/Vol] 15.0 g/dL 13.5 - 17.5 g/dL [facility] Immature granulocytes (Bld) [#/Vol] 0.05 10*3/uL [facility] Immature granulocytes/100 WBC (Bld) 0.50 % [facility] Comment on above: The IG parameter is the percentage of metamyelocytes, myelocytes, and promyelocytes. Lymphocytes (Bld) [#/Vol] 1.89 10*3/uL [facility] Lymphocytes/100 WBC (Bld) 19.4 % [facility] MCH (RBC) [Entitic mass] 31.9 pg 26 - [address] [facility] MCHC (RBC) [Mass/Vol] 34.5 g/dL 31 - 37 g/dL [facility] MCV (RBC) [Entitic vol] 92.6 fL 80 - [address] [facility] Monocytes (Bld) [#/Vol] 0.63 10*3/uL [facility] Monocytes/100 WBC (Bld) 6.5 % [facility] Neutrophils (Bld) [#/Vol] 6.87 10*3/uL [facility] Neutrophils/100 WBC (Bld) 70.3 % [facility] Nucleated RBC (Bld) [#/Vol] 0.00 10*3/uL [facility] Nucleated RBC/100 WBC (Bld) [Ratio] 0.0 % [facility] Platelet mean volume (Bld) [Entitic vol] 10.5 fL 9 - 15.[address] [facility] Platelets (Bld) [#/Vol] 256 10*3/uL [facility] RBC (Bld) [#/Vol] 4.70 10*6/uL [facility] ealth WBC (Bld) [#/Vol] 9.76 10*3/uL [facility] ealt ECG 12-LEADon 03-06-2019 Atrial Rate [address] [facility] P [place] [address] [facility] P-R Interval [address] [facility] Q-T Interval [address] [facility] QRS Duration [address] [facility] QTC Calculation (Bezet) [address] [facility] R [place] [address] [facility] T [place] [address] [facility] Ventricular Rate 76 BPM [facility] th ECG Cart Interpretation see physician note for interpretation. Poor data quality, interpretation may be adversely affected Normal sinus rhythm with sinus arrhythmia Normal ECG Confirmed by Angi Antonio ([id number]) on 03/06/2019 10:56:[address] [facility] Otheron 03-06-2019 Extra Tube Hold for add-ons. [facility] Comment on above: Auto resulted. Interpretation and review of laboratory results Abnormal [facility] TROPONINon 03-06-2019 Interpretation and review of laboratory results Abnormal [facility] Troponin I.cardiac [Mass/Vol] 19 % <20% of Baseline Troponin [facility] Troponin I.cardiac [Mass/Vol] 62 ng/L Critically high <=[address] [facility] Troponin I.cardiac [Mass/Vol] Probable non-acute cardiac injury or late presentation of acute injury. [facility] Troponin I.cardiac [Mass/Vol] 52 ng/L Critically high <=[address] [facility] Troponin I.cardiac [Mass/Vol] Possible acute cardiac injury. [facility] XR CHEST AP/PA AND LATon Interface[facility]/06/2019 5:40 PM EDT [...] suggest mild emphysema. [facility]/lab Workstation ID: [id number] [facility] EXAMINATION: XR CHES T AP/PA AND [...] of the shoulders. No acute osseous abnormality. [facility] No acute cardiopulmonary process. Persistent mild flattening of the hemidiaphragms suggest mild emphysema. [facility]/lab Workstation ID: [id number] [facility] XR CHEST AP/PA AND LAT EXAMINATION: [...] Mar 06, 2019 5:38:16 PM EDT Normal [facility] Comment on above: Order Comment: Injur y/Trauma or Illness?:Illness/Other How long have you had these symptoms (acute/chronic)?:Acute Reason for exam?:chest pain, hx of recent stents History of cancer?:u Surgeries, chemotherapy, or radiation?:u Type of Exam?:Initial Additional signs and symptoms?:na [facility] 08-07-2018 [facility] HNO ID: [id number] Author: Barbara Paulino) REYNOLD Lindsey Service: Radiology Author Type: Clinical Solution Lead Type: Allied Health Filed: 08/07/2018 1:55 PM [...] Tierney August 07, 2018 1:55 PM Normal [facility] APTTon 08-07-2018 aPTT Coag time (Bld) 27.9 s Normal 23.0-32.4 [facility] Comment on above: Result Comment: [...] laboratory APTT reagent in use throughout the [facility]. Performed By: #### C BCDIF, PT, PTT, CMP #### [facility] [facility] [address] [place] [address] CBC and Differentialon 08-07 Abs Baso 0.10 k/uL Normal <0.11 [facility] Comment on above: Performed By: #### C BCDIF, PT, PTT, CMP #### [facility] [address] [address] Abs Whitfield 0.90 k/uL High <0.87 [facility] Comment on above: Performed By: #### C BCDIF, PT, PTT, CMP #### [facility] [address] [address] Abs Neut 6.49 k/uL Normal 1.45-7.50 [facility] Comment on above: Performed By: #### C BCDIF, PT, PTT, CMP #### [facility] [address] [address] Basophils/100 WBC (Bld) 1.0 % Normal [facility] Comment on above: Performed By: #### C BCDIF, PT, PTT, CMP #### [facility] [address] [place] [address] Eosinophils #/vol (Bld) 0.31 10*3/uL Normal <0.46 [facility] Comment on above: Performed By: #### C BCDIF, PT, PTT, CMP #### [facility] [address] [place] [address] Eosinophils/100 WBC (Bld) 3.1 % Normal [facility] Comment on above: Performed By: #### C BCDIF, PT, PTT, CMP #### [facility] [address] [place] [address] Erythrocyte distribution width Ratio (RBC) 12.9 % Normal 11.5-15.0 [facility] Comment on above: Performed By: #### C BCDIF, PT, PTT, CMP #### [facility] [address] [place] [address] Hematocrit Volume Fraction (Bld) 48.9 % Normal 39.0-51.0 [facility] Comment on above: Performed By: #### C BCDIF, PT, PTT, CMP #### [facility] [address] [place] [address] Hemoglobin mass conc (Bld) 16.3 g/dL Normal 13.0-17.0 [facility] Comment on above: Performed By: #### C BCDIF, PT, PTT, CMP #### [facility] [address] [address] Lymphocytes #/vol (Bld) 2.24 10*3/uL Normal 1.00-4.00 [facility] Comment on above: Performed By: #### C BCDIF, PT, PTT, CMP #### [facility] [address] Lymphocytes/100 WBC (Bld) 22.3 % Normal [facility] Comment on above: Performed By: #### C BCDIF, PT, PTT, CMP #### [facility] [address] [address] MCH Entitic mass (RBC) 31.1 pG Normal 26.0-34.0 [facility] Comment on above: Performed By: #### C BCDIF, PT, PTT, CMP #### [facility] [address] [address] MCHC mass conc (RBC) 33.3 g/dL Normal 30.5-36.0 [facility] Comment on above: Performed By: #### C BCDIF, PT, PTT, CMP #### [facility] [address] [place] [address] MCV Entitic volume (RBC) 93.3 fL Normal 80.0-100.0 [facility] Comment on above: Performed By: #### C BCDIF, PT, PTT, CMP #### [facility] [address] [place] [address] Monocytes/100 WBC (Bld) 9.0 % Normal [facility] Comment on above: Performed By: #### C BCDIF, PT, PTT, CMP #### [facility] [address] [place] [address] Neutrophils/100 WBC (Bld) 64.6 % Normal [facility] Comment on above: Performed By: #### C BCDIF, PT, PTT, CMP #### [facility] [address] [phone] Platelet mean volume Entitic volume (Bld) 10.3 fL Normal 9.0-12.7 [facility] Comment on above: Performed By: #### C BCDIF, PT, PTT, CMP #### [facility] [address] [address] Platelets #/vol (Bld) 261 10*3/uL Normal 150-400 [facility] Comment on above: Performed By: #### C BCDIF, PT, PTT, CMP #### [facility] [address] [phone] RBC #/vol (Bld) 5.24 10*6/uL Normal 4.20-6.00 [facility] Comment on above: Performed By: #### C BCDIF, PT, PTT, CMP #### [facility] [address] [phone] WBC #/vol (Bld) 10.04 10*3/uL Normal 3.70-11.00 [facility] Comment on above: Performed By: #### C BCDIF, PT, PTT, CMP #### [facility] [address] [phone] CT ABD/PEL WO IVCONon 2018 CT ABD/PEL WO IVCON * * *Final Report* * * DATE OF EXAM: Aug 07 2018 1:54PM [facility] 0531 - CT ABD/PEL WO IVCON / [...] hernia Nonspecific gastric wall thickening Prostate enlargement Freight Manager: [facility] Transcribe Date/Time: Aug 07 2018 1:56P Dictated by : NADIA SHEA MD This examination was interpreted and the report reviewed and electronically signed by: NADIA SHEA MD on Aug 07 2018 2:34PM EST [id number] Normal [facility] Comp Metabolic Panelon 08-07 Albumin mass conc 4.9 g/dL Normal 3.9-4.9 [facility] Comment on above: Performed By: #### C BCDIF, PT, PTT, CMP #### [facility] [address] [place] [address] ALP enzyme act/vol 84 U/L Normal 38-113 [facility] Comment on above: Performed By: #### C BCDIF, PT, PTT, CMP #### [facility] [address] [place], [place] [id number] ALT enzyme act/vol 16 U/L Normal 10-54 [facility] Comment on above: Performed By: #### C BCDIF, PT, PTT, CMP #### [facility] [address] [place] [address] Anion gap molar conc 9 mmol/L Normal 9-18 [facility] Comment on above: Performed By: #### C BCDIF, PT, PTT, CMP #### [facility] [address] [place] [address] AST enzyme act/vol 18 U/L Normal 14-40 [facility] Comment on above: Performed By: #### C BCDIF, PT, PTT, CMP #### [facility] [address] [place] [address] Bilirubin mass conc 0.6 mg/dL Normal 0.2-1.3 [facility] Comment on above: Performed By: #### C BCDIF, PT, PTT, CMP #### [facility] [address] [place] [address] Calcium mass conc 9.9 mg/dL Normal 8.5-10.2 [facility] Comment on above: Performed By: #### C BCDIF, PT, PTT, CMP #### [facility] [address] [place] [address] Chloride molar conc 101 mmol/L Normal 97-105 [facility] Comment on above: Performed By: #### C BCDIF, PT, PTT, CMP #### [facility] [address] [place] [address] CO2 molar conc 30 mmol/L Normal 22-30 [facility] Comment on above: Performed By: #### C BCDIF, PT, PTT, CMP #### [facility] [address] [place] [address] Creatinine mass conc 0.86 mg/dL Normal 0.73-1.22 [facility] Comment on above: Performed By: #### C BCDIF, PT, PTT, CMP #### [facility] [address] [place] [address] eGFR- Amer. >60 Normal [facility] Comment on above: Performed By: #### C BCDIF, PT, PTT, CMP #### [facility] [address] [place] [address] GFR/1.73 sq M predicted among non-blacks MDRD vol rate/area (S/P/Bld) mL/min/{1.73_m2} Normal [facility] Comment on above: Result Comment: eGFR (Estimated [...] #### C BCDIF, PT, PTT, CMP #### [facility] [address] [place] [address] Glucose mass conc 99 mg/dL Normal 74-99 [facility] Comment on above: Result Comment: The [place] Diabetes Association (ADA) provides guidance for cutoff [...] Standards of Medical Care in Diabetes 2016, [place] [employer] Association. Diabetes Care. 2016.39(Suppl 1). Performed By: #### C BCDIF, PT, PTT, CMP #### [facility] [address] [place] [address] Potassium molar conc 4.3 mmol/L Normal 3.7-5.1 [facility] Comment on above: Performed By: #### C BCDIF, PT, PTT, CMP #### [facility] [address] [place] [address] Protein mass conc 7.7 g/dL Normal 6.3-8.0 [facility] Comment on above: Performed By: #### C BCDIF, PT, PTT, CMP #### [facility] [address] [place] [address] Sodium molar conc 140 mmol/L Normal 136-144 [facility] Comment on above: Performed By: #### C BCDIF, PT, PTT, CMP #### [facility] [address] [place] [address] Urea nitrogen mass conc 20 mg/dL Normal 9-24 [facility] Comment on above: Performed By: #### C BCDIF, PT, PTT, CMP #### [facility] [address] [facility] [phone] ED NOTEon 08-07-2018 ED NOTE HNO ID: [id number] Author: Margaret (Rn) AMINATA Lin Service: Nursing Author Type: Registered Nurse Type: ED Notes Filed: 08/07/2018 1:19 PM Note Text: Pt presents to ED with c/o hematuria and clots since yesterday. Pt went to [place] for same thing last night and was told to follow up with a urologist. The urologist that was recommended is out of town and he says the clots are getting bigger and more frequent Normal [facility] ED PROV NOTEon 08-07-2018 Protein mass conc HNO ID: [id number] Author: Arcadio Hess) Suze Service: (none) Author Type: Physician Assembly Person Type: ED Provider Notes Filed: 08/07/2018 10:53 PM Note Text: ED Provider Note Patient Name: Jaron Mireles SERVICE DATE: 08/07/18 History Patient presents with: Hematuria: with clots 63-year-old male presents emergency Department with complaints of hematuria. States he was seen at [facility] yesterday and had his bladder irrigated. [...] pain. 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 used: No PAST MEDICAL HISTORY Diagnosis Date [...] the following: Result Value Ref Range Abs Whitfield 0.90 (*) <0.87 k/uL All other components [...] hernia Nonspecific gastric wall thickening Prostate enlargement Freight Manager: CHARLIE Transcribe Date/Time: Aug 07 2018 1:56P [...] SIGNATURE: DARRYL Nieto (Pa) 08/07/18 2253 Normal [facility] Protimeon 08-07-2018 Prothrombin time (PT) Coag time (PPP) 10.1 s Normal 9.7-13.0 [facility] Comment on above: Performed By: #### C BCDIF, PT, PTT, CMP #### [facility] [address] [facility] [phone] Prothrombin time (PT) Coag time (PPP) 1.0 s Normal 0.9-1.3 [facility] Comment on above: Result Comment: Love min K Antagonist (VKA) Therapeutic Range: INR 2 to 3 (Target INR of 2.5) Note: For patients treated with VKA drugs, such as warfarin, the [place] [employer] 2012 Guideline recommends [...] #### C BCDIF, PT, PTT, CMP #### [facility] [address] [facility] [phone] Urinalysison 08-07-2018 Bilirubin, Urine Color interference, unable to perform assay. Critically abnormal Negative [facility] Comment on above: Result Comment: Sugg est correlation with clinical findings and serum bilirubin if clinically indicated. Performed By: #### U A, UAMIC #### [facility] [address] [place] [address] Clarity Nom (U) Turbid Critically abnormal Clear [facility] Comment on above: Performed By: #### U A, UAMIC #### [facility] [address] [place] [address] Color Nom (U) Red Critically abnormal Yellow [facility] Comment on above: Performed By: #### U A, UAMIC #### [facility] [address] [place] [address] Glucose Ql (U) Color interference, unable to perform assay. Critically abnormal Negative [facility] Comment on above: Performed By: #### U A, UAMIC #### [facility] [address] [place] [address] Hemoglobin/Blood,Ur Color interference, unable to perform assay. Critically abnormal Negative [facility] Comment on above: Performed By: #### U A, UAMIC #### [facility] [address] [place] [address] Ketones Ql (U) Color interference, unable to perform assay. Critically abnormal Negative [facility] Comment on above: Performed By: #### U A, UAMIC #### [facility] [address] [place] [address] Leukest Color interference, unable to perform assay. Critically abnormal Negative [facility] Comment on above: Performed By: #### U A, UAMIC #### [facility] [address] [place] [address] Nitrite Ql (U) Color interference, unable to perform assay. Critically abnormal Negative [facility] Comment on above: Performed By: #### U A, UAMIC #### [facility] [address] [place] [address] pH (Bld) Color interference, unable to perform assay. Normal 5.0-8.0 [facility] Comment on above: Performed By: #### U A, UAMIC #### [facility] [address] [place] [address] Protein mass conc (U) Color interference , unable to perform assay. Critically abnormal Negative [facility] Comment on above: Performed By: #### U A, UAMIC #### [facility] [address] [place] [address] Specific [place], Ur Color interference, unable to perform assay. Normal 1.001-1.029 [facility] Comment on above: Performed By: #### U A, UAMIC #### [facility] [address] [address] Urobilinogen Qn (U) Color interference, unable to perform assay. Normal 0.2-1.0 [facility] Comment on above: Performed By: #### U A, UAMIC #### [facility] [address] [place] [address] Urine Cultureon 08-07-2018 Bacteria identified Cx Nom (U) Sp. Request/Comment: - Specimen received in preservative Culture Result - 50,000 - <100,000 CFU/ml Normal urogenital mary Normal [facility] Comment on above: Performed By: #### C BCDIF, PT, PTT, CMP #### [facility] [address] [place] [address] Urine Microscopic (FOR LAB U SE ONLY)on 08-07-2018 Bacteria LM.HPF #/area (Urine sed) Few Critically abnormal 0 [facility] Comment on above: Performed By: #### U A, UAMIC #### [facility] [address] [place] [address] Cast SEE COMMENT Normal 0 [facility] Comment on above: Result Comment: 0 Performed By: #### U A, UAMIC #### [facility] [address] [place] [address] RBC #/vol (U) Too numerous to count Critically abnormal 0-3 [facility] Comment on above: Performed By: #### U A, UAMIC #### [facility] [address] [place] [address] WBC #/vol (Bld) 10-30 Critically abnormal 0-5 [facility] Comment on above: Performed By: #### U A, UAMIC #### [facility] [address] [place] [address] CBC with Diffon 05-30-2017 Abs. Basophil 0.00 k/uL Normal 0.0-0.2 [facility] Comment on above: Result Comment: Perf ormed at [facility] [address] [facility] [place] [address] Performed By: #### Светлана FAST, CDP, LIPR, MG, TSHX, VD25 ####[facility] [place] [address] Abs.Neutrophil (Seg) 5.80 k/uL Normal 2.1-6.[address] [facility] Comment on above: Performed By: #### Светлана FAST, CDP, LIPR, MG, TSHX, VD25 ####[address] [facility] [place] [address] Auto Diff Performed YES Normal [facility] Comment on above: Performed By: #### Светлана FAST, CDP, LIPR, MG, TSHX, VD25 ####[address] [place] [address] Basophils/100 WBC Auto (Bld) 0 % Normal 0-2 [facility] Comment on above: Performed By: #### Светлана FAST, CDP, LIPR, MG, TSHX, VD25 ####[address] [facility] [place] [address] Eosinophils 0.60 10*3/uL High 0.0-0.4 [facility] Comment on above: Performed By: #### Светлана FAST, CDP, LIPR, MG, TSHX, VD25 ####[address] [facility] [place] [address] Eosinophils/100 leukocytes 6 % High 0-5 [facility] Comment on above: Performed By: #### Z FAST, CDP, LIPR, MG, TSHX, VD25 ####[address] [facility] [place] [address] Erythrocyte distribution width Auto Ratio (RBC) 13.4 % Normal 12.1-15.2 [facility] Comment on above: Performed By: #### Светлана FAST, CDP, LIPR, MG, TSHX, VD25 ####[facility] [facility] [place] [address] Erythrocytes (RBC) 5.24 10*6/uL Normal 4.5-5.[address] [facility] Comment on above: Performed By: #### Z FAST, CDP, LIPR, MG, TSHX, VD25 ####[facility] [facility] [place] [address] Hematocrit (HCT) 48.8 % Normal 41-53 [facility] Comment on above: Performed By: #### Светлана FAST, CDP, LIPR, MG, TSHX, VD25 ####[facility] [place] [address] Hemoglobin mass conc (Bld) 16.3 g/dL Normal 13.5-17.5 [facility] Comment on above: Performed By: #### Светлана FAST, CDP, LIPR, MG, TSHX, VD25 ####[address] [place] [address] Lymphocytes 2.00 10*3/uL Normal 1.0-4.8 [facility] Comment on above: Performed By: #### Светлана FAST, CDP, LIPR, MG, TSHX, VD25 ####[facility] [place] [address] Lymphocytes/100 leukocytes 22 % Normal 13-44 [facility] Comment on above: Performed By: #### Z FAST, CDP, LIPR, MG, TSHX, VD25 ####[facility] [facility] [place] [address] MCH 31.1 pg Normal 26-34 [facility] Comment on above: Performed By: #### Z FAST, CDP, LIPR, MG, TSHX, VD25 ####[facility] [facility] [place] [address] MCHC mass conc (RBC) 33.4 g/dL Normal 31-[address] [facility] Comment on above: Performed By: #### Z FAST, CDP, LIPR, MG, TSHX, VD25 ####[facility] [id number] MCV 93.2 fL Normal 80-100 [facility] Comment on above: Performed By: #### Светлана FAST, CDP, LIPR, MG, TSHX, VD25 ####[facility] [place] [address] Monocytes 0.70 10*3/uL Normal 0.0-1.0 [facility] Comment on above: Performed By: #### Светлана FAST, CDP, LIPR, MG, TSHX, VD25 ####[place] [address] [place] [address] Monocytes/100 leukocytes 8 % Normal 5-9 [facility] Comment on above: Performed By: #### Светлана FAST, CDP, LIPR, MG, TSHX, VD25 ####[facility] [place] [address] Neutrophil (Seg) 64 % Normal 39-75 [facility] Comment on above: Performed By: #### Светлана FAST, CDP, LIPR, MG, TSHX, VD25 ####[facility] [place] [address] Platelets 256 10*3/uL Normal 140-450 [facility] Comment on above: Performed By: #### Z FAST, CDP, LIPR, MG, TSHX, VD25 ####[facility] [id number] WBC (Leukocytes) 9.0 10*3/uL Normal 3.5-11.0 [facility] Comment on above: Performed By: #### Светлана FAST, CDP, LIPR, MG, TSHX, VD25 ####[facility] [facility] [place] [address] Erythrocyte morphology NOT REPORTED Normal [facility] Comment on above: Performed By: #### Z FAST, CDP, LIPR, MG, TSHX, VD25 ####[facility] [facility] [place] [address] Granulocytes/100 WBC (Bld) NOT REPORTED Normal 0.00-0.30 [facility] Comment on above: Performed By: #### Z FAST, CDP, LIPR, MG, TSHX, VD25 ####[facility] [place] [address] Immature granulocytes #/vol (Bld) NOT REPORTED Normal 0 [facility] Comment on above: Performed By: #### Светлана FAST, CDP, LIPR, MG, TSHX, VD25 ####[facility] [facility] [place] [address] Platelet mean volume (PMV) NOT REPORTED Normal 6.0-12.0 [facility] Comment on above: Performed By: #### Светлана FAST, CDP, LIPR, MG, TSHX, VD25 ####[facility] [place] [address] Platelets NOT REPORTED Normal [facility] Comment on above: Performed By: #### Светлана FAST, CDP, LIPR, MG, TSHX, VD25 ####[facility] [facility] [place] [address] WBC Morphology NOT REPORTED Normal [facility] Comment on above: Performed By: #### Z FAST, CDP, LIPR, MG, TSHX, VD25 ####[facility] [facility] [place] [address] Lipid Profileon 05-30-2017 Cholesterol 254 mg/dL High <200 [facility] Comment on above: Result Comment: Chol esterol Guidelines: <200 Desirable 200-240 Borderline >240 Undesirable Performed By: #### Z FAST, CDP, LIPR, MG, TSHX, VD25 ####[facility] [place] [address] Cholesterol to HDL Ratio 4.9 {ratio} Normal <5 [facility] Comment on above: Performed By: #### Z FAST, CDP, LIPR, MG, TSHX, VD25 ####[facility] [place] [place] [address] HDL Cholesterol 52 mg/dL Normal >40 [facility] Comment on above: Result Comment: HDL Guidelines: <40 Undesirable 40-59 Borderline >59 Desirable Performed By: #### Z FAST, CDP, LIPR, MG, TSHX, VD25 ####[place] [address] [place] [address] LDL Cholesterol 175 mg/dL High 0-130 [facility] Comment on above: Result Comment: LDL Guidelines: <100 Desirable 100-129 Near to/above Desirable 130-159 Borderline >159 UndesirableDirect (measured) LDL and calculated LDL are not interchangeable tests. Performed By: #### Z FAST, CDP, LIPR, MG, TSHX, VD25 ####[place] [address] [place] [place] [address] Triglyceride 136 mg/dL Normal <150 [facility] Comment on above: Result Comment: Trig lyceride Guidelines: <150 Desirable 150- 199 Borderline 200-499 High >499 Very high Based on AHA Guidelines for fasting triglyceride, March 2012.Performed at [facility] [address] [facility] [place] [address] Performed By: #### Z FAST, CDP, LIPR, MG, TSHX, VD25 ####[place] [address] [place] [place] [address] Cholesterol in VLDL mass conc NOT REPORTED Normal 1-30 [facility] Comment on above: Performed By: #### Z FAST, CDP, LIPR, MG, TSHX, VD25 ####[facility], [place] [id number] Magnesiumon 05-30-2017 Magnesium 2.3 mg/dL Normal 1.6-2.6 [facility] Comment on above: Result Comment: Perf ormed at [facility] [address] [place], [place] [phone] Performed By: #### Z FAST, CDP, LIPR, MG, TSHX, VD25 ####[facility] [place] [phone] Patient fasting?on 7 Patient fasting? YES Normal [facility] Comment on above: Result Comment: Perf ormed at [facility] [address] [place] [address] [phone] Performed By: #### Z FAST, CDP, LIPR, MG, TSHX, VD25 ####[place] [address] [facility] [place] [phone] TSH w/reflex to FT4on 2016 Thyroid stimulating hormone (TSH) 3.87 m[IU]/L Normal 0.30-5.00 [facility] Comment on above: Result Comment: Perf ormed at [facility] [address] [place] [address] [phone] Performed By: #### Z FAST, CDP, LIPR, MG, TSHX, VD25 ####[place] [address] [facility], [place] [id number] Vitamin D 25 OHon 05-30-2017 Vitamin D 25 [place] 35.8 ng/mL Normal 30.0-100.0 [facility] Comment on above: Result Comment: Refe rence Range:Vitamin D status Range Deficiency <20 ng/mL Mild Deficiency 20-30 ng/mL Sufficiency 30-100 ng/mL Toxicity >100 ng/mLPerformed at [facility] [address] [place] [address] [phone] Performed By: #### Z FAST, CDP, LIPR, MG, TSHX, VD25 ####[facility] [place] [address] XR CHEST STANDARD TWO VWon 1 07-31-2016 XR CHEST STANDARD TWO VW TWO-VIEW CHESTREASON FOR STUDY: History of cardiac disease, follow-up evaluation.COMPARISON : None.REPORT: Trachea, mediastinum, and heart size are unremarkable. The lungs are clear and well aerated. No effusion or pneumothorax or nodules noted. Diaphragm and bony elements are intact.IMPRESSION: Nonacute two-view chest.Interpreted by:Octavio Jarrell, DOSigned by:Octavio Jarrell, DO05/30/17Final result Normal [facility] CBC with Diffon 05-22-2017 Basophils Auto #/vol (Bld) 0.1 K/mcL Normal 0-0.2 [facility] Comment on above: Performed By: #### C BCDIF, EDCTNI, CMET, LIPASE, NTPROBNP ####Unless otherwise noted, all testing performed by [address] [id number]: [id number] Director: Carrillo Willis M.D. Basophils/100 WBC Auto (Bld) 0.9 % Normal [facility] Comment on above: Performed By: #### C BCDIF, EDCTNI, CMET, LIPASE, NTPROBNP ####Unless otherwise noted, all testing performed by [address] [id number]: [id number] Director: Carrillo Willis M.D. Eosinophils 0.2 K/mcL Normal 0-0.5 [facility] Comment on above: Performed By: #### C BCDIF, EDCTNI, CMET, LIPASE, NTPROBNP ####Unless otherwise noted, all testing performed by [address] [id number]: [id number] Director: Carrillo Willis M.D. Eosinophils/100 leukocytes 2.4 % Normal [facility] Comment on above: Performed By: #### C BCDIF, EDCTNI, CMET, LIPASE, NTPROBNP ####Unless otherwise noted, all testing performed by [address] [id number]: [id number] Director: Carrillo Willis M.D. Erythrocyte distribution width Auto Ratio (RBC) 12.8 % Normal 10-14.3 [facility] Comment on above: Performed By: #### C BCDIF, EDCTNI, CMET, LIPASE, NTPROBNP ####Unless otherwise noted, all testing performed by [place] [id number]: [id number] Director: Carrillo Willis M.D. Erythrocytes (RBC) 5.09 M/mcL Normal 4.0-5.5 [facility] Comment on above: Performed By: #### C BCDIF, EDCTNI, CMET, LIPASE, NTPROBNP ####Unless otherwise noted, all testing performed by [address] [phone]: [id number] Director: Carrillo Willis M.D. Hematocrit (HCT) 47.7 % Normal 37.9-49.2 [facility] Comment on above: Performed By: #### C BCDIF, EDCTNI, CMET, LIPASE, NTPROBNP ####Unless otherwise noted, all testing performed by [address] [phone]: [id number] Director: Carrillo Willis M.D. Hemoglobin mass conc (Bld) 16.6 g/dL Normal 12.9-16.9 [facility] Comment on above: Performed By: #### C BCDIF, EDCTNI, CMET, LIPASE, NTPROBNP ####Unless otherwise noted, all testing performed by [address] [phone]: [id number] Director: Carrillo Willis M.D. Lymphocytes 1.7 K/mcL Normal 0.9-3.6 [facility] Comment on above: Performed By: #### C BCDIF, EDCTNI, CMET, LIPASE, NTPROBNP ####Unless otherwise noted, all testing performed by [address] [id number]: [id number] Director: Carrillo Willis M.D. Lymphocytes/100 leukocytes 19.4 % Normal [facility] Comment on above: Performed By: #### C BCDIF, EDCTNI, CMET, LIPASE, NTPROBNP ####Unless otherwise noted, all testing performed by [address] [id number]: [id number] Director: Carrillo Willis M.D. MCH 32.5 pg Normal 27.7-34.6 [facility] Comment on above: Performed By: #### C BCDIF, EDCTNI, CMET, LIPASE, NTPROBNP ####Unless otherwise noted, all testing performed by [address] [phone]: [id number] Director: Carrillo Willis M.D. MCHC mass conc (RBC) 34.8 g/dL Normal 32.9-35.5 [facility] Comment on above: Performed By: #### C BCDIF, EDCTNI, CMET, LIPASE, NTPROBNP ####Unless otherwise noted, all testing performed by [address] [id number]: [id number] Director: Carrillo Willis M.D. MCV 93.6 fL Normal 82.8-99.3 [facility] Comment on above: Performed By: #### C BCDIF, EDCTNI, CMET, LIPASE, NTPROBNP ####Unless otherwise noted, all testing performed by [address] [phone]: [id number] Director: Carrillo Willis M.D. Monocytes 0.6 K/mcL Normal 0.2-0.6 [facility] Comment on above: Performed By: #### C BCDIF, EDCTNI, CMET, LIPASE, NTPROBNP ####Unless otherwise noted, all testing performed by [address] [phone]: [id number] Director: Carrillo Willis M.D. Monocytes/100 leukocytes 6.8 % Normal [facility] Comment on above: Performed By: #### C BCDIF, EDCTNI, CMET, LIPASE, NTPROBNP ####Unless otherwise noted, all testing performed by [address] [phone]: [id number] Director: Carrillo Willis M.D. Neutrophils 6.3 K/mcL Normal 1.4-6.8 [facility] Comment on above: Performed By: #### C BCDIF, EDCTNI, CMET, LIPASE, NTPROBNP ####Unless otherwise noted, all testing performed by [address] [phone]: [id number] Director: Carrillo Willis M.D. Platelet mean volume (PMV) 8.4 fL Normal 6.6-10.8 [facility] Comment on above: Performed By: #### C BCDIF, EDCTNI, CMET, LIPASE, NTPROBNP ####Unless otherwise noted, all testing performed by [address] [phone]: [id number] Director: Carrillo Willis M.D. Platelets 219 K/mcL Normal 139-354 [facility] Comment on above: Performed By: #### C BCDIF, EDCTNI, CMET, LIPASE, NTPROBNP ####Unless otherwise noted, all testing performed by [address] [phone]: [id number] Director: Carrillo Willis M.D. Segmented Neut % 70.5 % Normal [facility] Comment on above: Performed By: #### C BCDIF, EDCTNI, CMET, LIPASE, NTPROBNP ####Unless otherwise noted, all testing performed by [address] [phone]: [id number] Director: Carrillo Willis M.D. WBC (Leukocytes) 9.0 K/mcL Normal 3.6-10.4 [facility] Comment on above: Performed By: #### C BCDIF, EDCTNI, CMET, LIPASE, NTPROBNP ####Unless otherwise noted, all testing performed by [address] [phone]: [id number] Director: Carrillo Willis M.D. CHEST PA AND LATERALon 05-22 CHEST PA AND LATERAL Final ReportAccession No: [id number] Performed: May 22 2017 11:59AMExamination: CHEST [...] Physician: JORGE GIRON D.O.Trans: : cc: Normal [facility] Comprehensive Metabolic Pane coral 05-22-2017 Alanine aminotransferase (ALT) 23 U/L Normal 14-65 [facility] Comment on above: Result Comment: This test result might be falsely depressed or falsely elevated onsamples drawn from patients taking Sulfasalazine and Sulfapyridine.Venipuncture should occur prior to taking either of these drugs. Performed By: #### C BCDIF, EDCTNI, CMET, LIPASE, NTPROBNP ####Unless otherwise noted, all testing performed by [address], [place] [phone]: [id number] Director: Carrillo Willis M.D. Albumin 4.1 g/dL Normal 3.2-5.2 [facility] Comment on above: Performed By: #### C BCDIF, EDCTNI, CMET, LIPASE, NTPROBNP ####Unless otherwise noted, all testing performed by [address] [phone]: [id number] Director: Carrillo Willis M.D. Alkaline phosphatase (ALP) 85 U/L Normal 40-150 [facility] Comment on above: Performed By: #### C BCDIF, EDCTNI, CMET, LIPASE, NTPROBNP ####Unless otherwise noted, all testing performed by [address] [phone]: [id number] Director: Carrillo Willis M.D. Aspartate aminotransferase (AST) 15 U/L Normal 0-45 [facility] Comment on above: Result Comment: This test result might be falsely depressed or falsely elevated onsamples drawn from patients taking Sulfasalazine and Sulfapyridine.Venipuncture should occur prior to taking either of these drugs. Performed By: #### C BCDIF, EDCTNI, CMET, LIPASE, NTPROBNP ####Unless otherwise noted, all testing performed by [address] [phone]: [id number] Director: Carrillo Willis M.D. Bilirubin (total) 0.4 mg/dL Normal 0.3-1.2 [facility] Comment on above: Performed By: #### C BCDIF, EDCTNI, CMET, LIPASE, NTPROBNP ####Unless otherwise noted, all testing performed by [address] [phone]: [id number] Director: Carrillo Willis M.D. Calcium 9.5 mg/dL Normal 8.4-10.2 [facility] Comment on above: Performed By: #### C BCDIF, EDCTNI, CMET, LIPASE, NTPROBNP ####Unless otherwise noted, all testing performed by [address] [phone]: [id number] Director: Carrillo Willis M.D. Chloride 104 mmol/L Normal 98-108 [facility] Comment on above: Performed By: #### C BCDIF, EDCTNI, CMET, LIPASE, NTPROBNP ####Unless otherwise noted, all testing performed by [address] [phone]: [id number] Director: Carrillo Willis M.D. CO2 29 mmol/L Normal 21-32 [facility] Comment on above: Performed By: #### C BCDIF, EDCTNI, CMET, LIPASE, NTPROBNP ####Unless otherwise noted, all testing performed by [address] [id number]: [id number] Director: Carrillo Willis M.D. Creatinine 0.91 mg/dL Normal 0.80-1.30 [facility] Comment on above: Performed By: #### C BCDIF, EDCTNI, CMET, LIPASE, NTPROBNP ####Unless otherwise noted, all testing performed by [address] [phone]: [id number] Director: Carrillo Willis M.D. eGFR (black) mL/min/{1.73_m2} Normal [facility] Comment on above: Result Comment: Afri can Citizen [place] GFR Calc Performed By: #### C BCDIF, EDCTNI, CMET, LIPASE, NTPROBNP ####Unless otherwise noted, all testing performed by [address] [phone]: [id number] Director: Carrillo Willis M.D. eGFR (non-black) mL/min/{1.73_m2} Normal [facility] Comment on above: Result Comment: Non- [...] ####Unless otherwise noted, all testing performed by [address] [id number]: [id number] Director: Carrillo Willis M.D. Glucose mass conc 105 mg/dL High 70-99 [facility] Comment on above: Result Comment: This test result might be falsely depressed or falsely elevated onsamples drawn from patients taking Sulfasalazine and Sulfapyridine.Venipuncture should occur prior to taking either of these drugs. Performed By: #### C BCDIF, EDCTNI, CMET, LIPASE, NTPROBNP ####Unless otherwise noted, all testing performed by [address] [id number]: [id number] Director: Carrillo Willis M.D. Potassium molar conc 4.3 mmol/L Normal 3.5-5.1 [facility] Comment on above: Performed By: #### C BCDIF, EDCTNI, CMET, LIPASE, NTPROBNP ####Unless otherwise noted, all testing performed by [address] [phone]: [id number] Director: Carrillo Willis M.D. Protein 7.4 g/dL Normal 6.0-8.0 [facility] Comment on above: Performed By: #### C BCDIF, EDCTNI, CMET, LIPASE, NTPROBNP ####Unless otherwise noted, all testing performed by [address] [phone]: [id number] Director: Carrillo Willis M.D. Sodium 140 mmol/L Normal 135-145 [facility] Comment on above: Performed By: #### C BCDIF, EDCTNI, CMET, LIPASE, NTPROBNP ####Unless otherwise noted, all testing performed by [address] [phone]: [id number] Director: Carrillo Willis M.D. Urea nitrogen 16 mg/dL Normal 8-25 [facility] Comment on above: Performed By: #### C BCDIF, EDCTNI, CMET, LIPASE, NTPROBNP ####Unless otherwise noted, all testing performed by [address] [phone]: [id number] Director: Carrillo Willis M.D. ED Cardiac Troponin-Ion 12- Troponin I.cardiac mass conc ng/mL Normal < 45 [facility] Comment on above: Result Comment: Elev [...] ####Unless otherwise noted, all testing performed by [address] [id number]: [id number] Director: Carrillo Willis M.D. Lipaseon 05-22-2017 Lipase 124 U/L Normal 73-393 [facility] Comment on above: Performed By: #### C BCDIF, EDCTNI, CMET, LIPASE, NTPROBNP ####Unless otherwise noted, all testing performed by [address] [phone]: [id number] Director: Carrillo Willis M.D. NT-Pro BNP, Serumon 05-22-20 17 BNP 52 pg/mL Normal 0-125 [facility] Comment on above: Performed By: #### C BCDIF, EDCTNI, CMET, LIPASE, NTPROBNP ####Unless otherwise noted, all testing performed by [address] [phone]: [id number] Director: Carrillo Willis M.D. Vital Signs Date Time Vital Sign Value Performing Clinician Facility 12-14-2024 10:55-0400 Body height 190.[address] Melvin Trujillo MD Work Phone: [facility] 12-14-2024 10:55-0400 Body mass index (BMI) [Ratio] 22.4 kg/m2 Dr. Melvin Trujillo MD Work Phone: [facility] 12-14-2024 10:55-0400 Body weight 81.[address] Melvin Trujillo MD Work Phone: [facility] 12-14-2024 10:55-0400 Diastolic blood pressure 76 mm[Hg] Dr. Melvin Trujillo MD Work Phone: [facility] 12-14-2024 10:55-0400 Heart rate 71 /min Dr. Melvin Trujillo MD Work Phone: [facility] 12-14-2024 10:55-0400 Respiratory rate 16 /min Dr. Melvin Trujillo MD Work Phone: [facility] 12-14-2024 10:55-0400 Systolic blood pressure 124 mm[Hg] Dr. Melvin Trujillo MD Work Phone: [facility] 10-04-2022 10:47-0400 Body height 190.[address] Melvin Trujillo Work Phone: [facility] 10-04-2022 10:47-0400 Body mass index (BMI) [Ratio] 20.7 kg/m2 Dr. Melvin Trujillo Work Phone: [phone] [place] [address] 10-04-2022 10:47-0400 Body weight 75.[address] Melvin Trujillo Work Phone: [facility] 10-04-2022 10:47-0400 Diastolic blood pressure 73 mm[Hg] Dr. Melvin Trujillo Work Phone: [facility] 10-04-2022 10:47-0400 Heart rate 68 /min Dr. Melvin Trujillo Work Phone: [facility] 10-04-2022 10:47-0400 Respiratory rate 18 /min Dr. Melvin Trujillo Work Phone: [facility] 10-04-2022 10:47-0400 SaO2% (BldA) [Mass fraction] 99 % Dr. Melvin Trujillo Work Phone: [facility] 10-04-2022 10:47-0400 Systolic blood pressure 131 mm[Hg] Dr. Melvin Trujillo Work Phone: [facility] 05-22-2022 10:28-0500 Body height 190.[address] Melvin Trujillo Work Phone: [facility] 05-22-2022 10:28-0500 Body weight 73.[address] Melvin Trujillo Work Phone: [facility] 05-21-2022 07:45-0500 Body mass index (BMI) [Ratio] 20.3 kg/m2 Dr. Melvin Trujillo Work Phone: [facility] 05-16-2022 09:22-0500 Body mass index (BMI) [Ratio] 20.3 kg/m2 Dr. Melvin Trujillo Work Phone: [facility] 05-16-2022 09:22-0500 Body weight 73.[address] Melvin Trujillo Work Phone: [facility] 05-16-2022 09:22-0500 Diastolic blood pressure 84 mm[Hg] Dr. Melvin Trujillo Work Phone: [facility] 05-16-2022 09:22-0500 Heart rate 79 /min Dr. Melvin Trujillo Work Phone: [facility] 05-16-2022 09:22-0500 Respiratory rate 16 /min Dr. Melvin Trujillo Work Phone: [facility] 05-16-2022 09:22-0500 Systolic blood pressure 142 mm[Hg] Dr. Melvin Trujillo Work Phone: [facility] 01-24-2022 08:50-0400 Body mass index (BMI) [Ratio] 20.2 kg/m2 Dr. Melvin Trujillo Work Phone: [facility] Work Phone: 01-24-2022 08:50-0400 Body temperature 97.8 [degF] Dr. Melvin Trujillo Work Phone: [facility] Work Phone: 01-24-2022 08:50-0400 Body weight 73.[address] Melvin Trujillo Work Phone: [facility] Work Phone: 01-24-2022 08:50-0400 Diastolic blood pressure 82 mm[Hg] Dr. Melvin Trujillo Work Phone: [facility] Work Phone: 01-24-2022 08:50-0400 Heart rate 79 /min Dr. Melvin Trujillo Work Phone: [facility] Work Phone: 01-24-2022 08:50-0400 Respiratory rate 17 /min Dr. Melvin Trujillo Work Phone: [facility] Work Phone: 01-24-2022 08:50-0400 SaO2% (BldA) [Mass fraction] 96 % Dr. Melvin Trujillo Work Phone: [facility] Work Phone: 01-24-2022 08:50-0400 Systolic blood pressure 149 mm[Hg] Dr. Melvin Trujillo Work Phone: [facility] Work Phone: 11-27-2021 10:31-0400 Body height 190.[address] Melvin Trujillo Work Phone: [facility] Work Phone: 11-27-2021 10:31-0400 Body mass index (BMI) [Ratio] 22.6 kg/m2 Dr. Melvin Trujillo Work Phone: [facility] Work Phone: 11-27-2021 10:31-0400 Body weight 82.[address] Melvin Trujillo Work Phone: [facility] Work Phone: 11-27-2021 10:31-0400 Diastolic blood pressure 74 mm[Hg] Dr. Melvin Trujillo Work Phone: [facility] Work Phone: 11-27-2021 10:31-0400 Heart rate 82 /min Dr. Melvin Trujillo Work Phone: [facility] Work Phone: 11-27-2021 10:31-0400 Respiratory rate 18 /min Dr. Melvin Trujillo Work Phone: [facility] Work Phone: 11-27-2021 10:31-0400 SaO2% (BldA) [Mass fraction] 94 % Dr. Melvin Trujillo Work Phone: [facility] Work Phone: 11-27-2021 10:31-0400 Systolic blood pressure 122 mm[Hg] Dr. Melvin Trujillo Work Phone: [facility] Work Phone: 08-21-2021 10:28-0400 Body height 190.[address] Melvin Trujillo Work Phone: [facility] Work Phone: 08-21-2021 10:28-0400 Body mass index (BMI) [Ratio] 23.6 kg/m2 Dr. Melvin Trujillo Work Phone: [facility] Work Phone: 08-21-2021 10:28-0400 Body weight 85.[address] Melvin Trujillo Work Phone: [facility] Work Phone: 08-21-2021 10:28-0400 Diastolic blood pressure 80 mm[Hg] Dr. Melvin Trujillo Work Phone: [facility] Work Phone: 08-21-2021 10:28-0400 Heart rate 76 /min Dr. Melvin Trujillo Work Phone: [facility] Work Phone: 08-21-2021 10:28-0400 Respiratory rate 18 /min Dr. Melvin Trujillo Work Phone: [facility] Work Phone: 08-21-2021 10:28-0400 Systolic blood pressure 138 mm[Hg] Dr. Melvin Trujillo Work Phone: [facility] Work Phone: 08-21-2021 10:28-0400 Body height 190.[address] Melvin Trujillo Work Phone: [facility] Work Phone: 08-21-2021 10:28-0400 Body mass index (BMI) [Ratio] 23.6 kg/m2 Dr. Melvin Trujillo Work Phone: [facility] Work Phone: 08-21-2021 10:28-0400 Body weight 85.[address] Melvin Trujillo Work Phone: [facility] Work Phone: 08-21-2021 10:28-0400 Diastolic blood pressure 80 mm[Hg] Dr. Melvin Trujillo Work Phone: [facility] Work Phone: 08-21-2021 10:28-0400 Heart rate 76 /min Dr. Melvin Trujillo Work Phone: [facility] Work Phone: 08-21-2021 10:28-0400 Respiratory rate 18 /min Dr. Melvin Trujillo Work Phone: [facility] Work Phone: 08-21-2021 10:28-0400 Systolic blood pressure 138 mm[Hg] Dr. Melvin Trujillo Work Phone: [facility] Work Phone: 07-27-2021 13:30-0500 Body temperature 98.2 [degF] Dr. Melvin Trujillo Work Phone: [facility] Work Phone: 07-27-2021 13:30-0500 Diastolic blood pressure 59 mm[Hg] Dr. Melvin Trujillo Work Phone: [facility] Work Phone: 07-27-2021 13:30-0500 Heart rate 67 /min Dr. Melvin Trujillo Work Phone: [facility] Work Phone: 07-27-2021 13:30-0500 Respiratory rate 14 /min Dr. Melvin Trujillo Work Phone: [facility] Work Phone: 07-27-2021 13:30-0500 SaO2% (BldA) [Mass fraction] 96 % Dr. Melvin Trujillo Work Phone: [facility] Work Phone: 07-27-2021 13:30-0500 Systolic blood pressure 103 mm[Hg] Dr. Melvin Trujillo Work Phone: [facility] Work Phone: 07-27-2021 12:30-0500 Body temperature 98.2 [degF] Dr. Melvin Trujillo Work Phone: [facility] Work Phone: 07-27-2021 12:30-0500 Diastolic blood pressure 59 mm[Hg] Dr. Melvin Trujillo Work Phone: [facility] Work Phone: 07-27-2021 12:30-0500 Heart rate 67 /min Dr. Melvin Trujillo Work Phone: [facility] Work Phone: 07-27-2021 12:30-0500 Respiratory rate 14 /min Dr. Melvin Trujillo Work Phone: [facility] Work Phone: 07-27-2021 12:30-0500 SaO2% (BldA) [Mass fraction] 96 % Dr. Melvin Trujillo Work Phone: [facility] Work Phone: 07-27-2021 12:30-0500 Systolic blood pressure 103 mm[Hg] Dr. Melvin Trujillo Work Phone: [facility] Work Phone: 07-26-2021 19:54-0500 Body mass index (BMI) [Ratio] 22.8 kg/m2 Dr. Melvin Trujillo Work Phone: [facility] Work Phone: 07-26-2021 19:54-0500 Body weight 83.[address] Melvin Trujillo Work Phone: [facility] Work Phone: 07-26-2021 18:54-0500 Body mass index (BMI) [Ratio] 22.8 kg/m2 Dr. Melvin Trujillo Work Phone: [facility] Work Phone: 07-26-2021 18:54-0500 Body weight 83.[address] Melvin Trujillo Work Phone: [facility] Work Phone: 03-06-2019 17:00-0400 Pulse (Heart Rate) [...] Start: 02-28-2025 Patient encounter procedure Kade Bright AUTOMATIC RIVETING MACHINE OPERATOR-C -Cat Scan [facility] Work Phone: Start: 02-28-2025 End: 02-28-2025 ambulatory Melvin Trujillo Facility:[facility] Start: 02-22-2025 End: 02-22-[address] Melvin Trujillo MD Work Phone: -Laboratory Start: 02-22-2025 End: 02-22-[address] Hilario Valladares MD -Laboratory Work Phone: Start: 02-22-2025 End: 02-22-2025 ambulatory Melvin Trujillo Facility:[facility] Start: 12-14-2024 End: 12-14-2024 Patient encounter procedure Chris Mirna Edwin ROMANO-C -[facility] Work Phone: Start: 12-14-2024 End: 12-14-[address] Melvin Trujillo MD Work Phone: -[facility] Start: 07-20-2024 End: 07-20-2024 ambulatory Melvin Trujillo Facility:[facility] Start: 09-23-2023 End: 09-23-2023 ambulatory [facility] Work Phone: Start: 09-23-2023 End: 09-23-2023 Patient encounter procedure [facility] Start: 05-08-2023 End: 05-08-2023 ambulatory [facility] Work Phone: Start: 05-08-2023 End: 05-08-2023 Patient encounter procedure [facility] Work Phone: Start: 01-21-2023 End: 01-21-[address] Melvin Trujillo Work Phone: [facility] Work Phone: Start: 01-21-2023 End: 01-21-[address] Melvin Trujillo Work Phone: [facility] Start: 11-26-2022 End: 11-26-[address] Melvin Trujillo Work Phone: [facility] Work Phone: Start: 11-26-2022 End: 11-26-[address] Melvin Trujillo Work Phone: [facility]-Cat Scan, [facility] Start: 11-06-2022 End: 11-06-[address] Vinayak Edmonds Facility:[id number] Start: 11-06-2022 End: 11-06-2022 Subsequent hospital visit by physician Vinayak Edmonds DO Work Phone: [facility] Comment on above: Encounter for screen ing for malignant neoplasm of colon; Polyp of colon; Essential (primary) hypertension; Pure hypercholesterolemia, unspecified; Benign prostatic hyperplasia without lower urinary tract symptoms; Chronic obstructive pulmonary disease, unspecified ([facility]) Start: 10-11-2022 End: 10-11-[address] Melvin Trujillo Work Phone: [facility] Work Phone: Start: 10-11-2022 End: 10-11-[address] Melvin Trujillo Work Phone: [facility]-Laboratory Start: 10-04-2022 End: 10-04-[address] Melvin Trujillo Work Phone: [facility] [place] Start: 07-15-2022 End: 07-15-[address] Melvin Trujillo Work Phone: [facility] Work Phone: Start: 07-15-2022 End: 07-15-[address] Melvin Trujillo Work Phone: [facility]-Laboratory Start: 06-21-2022 Non-patient / Non-visit Dr. Marshal Trujillo Work Phone: [facility] [place] Start: 06-21-2022 Non-patient / Non-visit Dr. Marshal Trujillo Work Phone: [facility] Start: 06-21-2022 End: 06-21-[address] Melvin Trujillo Work Phone: [facility] Work Phone: Start: 06-21-2022 End: 06-21-[address] Melvin Trujillo Work Phone: [facility]-Cardiovascula r Services Start: 05-22-2022 Non-patient / Non-visit Dr. Marshal Trujillo Work Phone: [facility] Start: 05-22-2022 End: 05-22-2022 Admission to same day surgery center Dr. Melvin Trujillo Work Phone: [facility]/Special Procedures Start: 05-22-2022 End: 05-22-[address] Melvin Trujillo Work Phone: [facility] Work Phone: Start: 05-16-2022 End: 05-16-[address] Melvin Trujillo Work Phone: [facility] Work Phone: Start: 05-16-2022 End: 05-16-[address] Melvin Trujillo Work Phone: [facility]-Radiology, [facility] Start: 05-16-2022 End: 05-16-[address] Melvin Trujillo Work Phone: [facility] Start: 01-24-2022 End: 01-24-[address] Melvin Trujillo Work Phone: [facility]-Pulmonary Medicine [facility] Start: 12-04-2021 End: 12-04-[address] Melvin Trujillo Work Phone: [facility] Start: 11-28-2021 End: 11-28-[address] Melvin Trujillo Work Phone: [facility]-Cardiovascula r Services Start: 11-27-2021 End: 11-27-[address] Melvin Trujillo Work Phone: [facility] Start: 11-20-2021 End: 11-20-[address] Melvin Trujillo Work Phone: [facility]-Cat Scan, [facility] Start: 09-04-2021 End: 09-04-[address] Melvin Trujillo Work Phone: [facility]-Cardiovascula r Services Start: 08-21-2021 End: 08-21-[address] Melvin Trujillo Work Phone: [facility] Start: 07-27-2021 Non-patient / Non-visit Dr. Marshal Trujillo Work Phone: [facility] Inpatient Physicians Start: 07-27-2021 Non-patient / Non-visit Dr. Marshal Trujillo Work Phone: [facility] Start: 07-26-2021 Non-patient / Non-visit Dr. Marshal Trujillo Work Phone: [facility] Start: 07-26-2021 End: 07-27-2021 Evaluation and management of inpatient Dr. Melvin Trujillo Work Phone: [facility]-Progressive Care Unit Start: 07-17-2020 End: 07-17-2020 Orders Only Ludy Jasmyne Mitchell Work Phone: [facility] Start: 07-20-2019 End: 07-24-2019 Patient encounter procedure TYSHAWN HAYDEN [facility] Start: 03-06-2019 End: 03-06-2019 Emergency department patient visit LUIS ENRIQUE LEONG [facility] Start: 03-06-2019 End: 03-06-2019 Emergency department patient visit Yariel Stewartganga Mercado Work Phone: [facility] Emergency Department Comment on above: Chest pain, unspecif ied type (Primary Dx) Start: 08-07-2018 End: 08-07-2018 Emergency department patient visit [facility] Start: 05-30-2017 End: 05-31-2017 Amb[facility] Start: 05-22-2017 End: 05-22-2017 Emergency department patient visit Carrillo Bernal Facility:[facility] Date Procedure Procedure Detail Performing Clinician Start: [...] 11-26-[address] Melvin Robison [facility] Work Phone: Start: 11-06-2022 SURGICAL PATHOLOGY RESULTS Vinayak Bushra Grey DO Work Phone: Start: 11-06-2022 Colonoscopy stoma dx including collj spec spx Melvin Trujillo MD Work Phone: Start: 11-06-2022 Colonoscopy Vinayak liu DO Work Phone: Start: 05-16-2022 Plain chest X-ray Dr. Jackie Trujillo Work Phone: Start: 11-20-[address] Melvin Robison [facility] Work Phone: Start: 07-26-2021 Plain chest [...] of coronary artery stent placement Chris Pineda AUTOMATIC RIVETING MACHINE OPERATORShavonC Comment on above: EWH-OKK-Laum LCx w/ 2.5 x 8 mm Elunir [...] 11-06-2032 Screening for malignant neoplasm of colon [facility] Start: 02-07-2023 Influenza vaccination Influenza Vaccine (#1) [facility] Start: 07-27-2021 Patient discharge [facility] Work Phone: Start: 07-27-2021 Notification of physician [facility] Work Phone: Start: 07-27-2021 Patient education [facility] Work Phone: Start: 07-27-2021 Pulse taking [facility] Work Phone: Start: 07-27-2021 Taking patient vital signs [facility] Work Phone: Start: 07-27-2021 Wound care [facility] Work Phone: Start: 07-27-2021 [facility] Work Phone: Start: 07-26-2021 Medication not administered [facility] Work Phone: Start: 07-26-2021 End: 07-26-2021 [facility] Work Phone: Start: 07-26-2021 Following clinical pathway protocol [facility] Work Phone: Start: 07-26-2021 Assessment of risk of venous thromboembolism [facility] Work Phone: Start: 07-26-2021 End: 07-26-2021 Catheterization of vein [facility] Work Phone: Start: 07-26-2021 Incentive spirometry [facility] Work Phone: Start: 07-26-2021 Inhalation therapy procedure [facility] Work Phone: Start: 07-26-2021 Insertion of catheter into peripheral vein [facility] Work Phone: Start: 07-26-2021 Measuring intake and output [facility] Work Phone: Start: 07-26-2021 Providing care according to standard [facility] Work Phone: Start: 07-26-2021 Provision of activity privileges [facility] Work Phone: Start: 07-26-2021 Referral to screen repairer crusher [facility] Work Phone: Start: 07-26-2021 Admission procedure [facility] Work Phone: Start: 02-08-2020 Influenza vaccination given Sequential Influenza Vaccine (#1) [facility] Start: 2019 Pneumococcal vaccination Pneumococcal Vaccine Age 65+ (1 of 2 - PCV13) [facility] Start: 02-07-2019 Influenza vaccination given SEQUENTIAL INFLUENZA VACCINE (#1) [facility] Start: 2004 Administration of herpes zoster vaccine Zoster Vaccines (1 of 2) [facility] Start: 2004 Screening for malignant neoplasm of colon [facility] Start: 2004 Zoster Vaccines (1 of 2) Zoster Vaccines (1 of 2) [facility] Start: 1976 DTaP/Tdap/Td Vaccines (1 - Tdap) DTaP/Tdap/Td Vaccines (1 - Tdap) [facility] Start: 1972 Hepatitis C antibody, confirmatory test Hepatitis C Screening [facility] Start: 1972 Hepatitis C screening Hepatitis C Screening [facility] Start: 1970 COVID-19 Vaccine (1 of 2) COVID-19 Vaccine (1 of 2) [facility] Start: 1966 Adolescent depression screening assessment Depression Screening (PHQ9) [facility] Start: 1960 Pneumococcal Vaccine: 65+ Years (1 - PCV) Pneumococcal Vaccine: 65+ Years (1 - PCV) [facility] Start: 1957 History and physical examination, annual for health maintenance Wellness Visit [facility] Start: 1954 COVID-19 Vaccine (#1) COVID-19 Vaccine (#1) [facility] Start: 1954 Fall risk assessment Falls Risk Assessment [facility] Start: 1954 Hepatitis C antibody, confirmatory test HEPATITIS C SCREENING [facility] Start: 1954 Lipid panel Lipid Panel [facility] Start: 1954 Prostate specific antigen measurement PSA Level [facility] Start: 1954 Screening for malignant neoplasm of colon [facility] Start: [address] [facility] Start: 1954 Yearly Adult Physical Yearly Adult Physical [facility] Catheterization of [facility] Work Phone: Catheterization of l [facility] Exercise tolerance test [facility] Work Phone: Measurement of respi ratory function [facility] Work Phone: Patient Education ED Chest Pain, Noncardiac [facility] Work Phone: Patient referral [facility] Work Phone: Payers Date Payer Category Payer Self-pay [id number] 2022 Unknown [id number] 2019 Medicare [id number] 2019 Medicare MEDICARE MEDICAR E PART A & B [id number] 2019-Present [place] [id number] 2014 Unknown [id number] 2011 Unknown [id number] 2011 Unknown MMO MEDICAL MUTU AL SUPERMED CLASSIC xxxxxxxxxxxx 2011-Present xxxxxxxxxxxx [id number] 2011 Unknown MMO MEDICAL MUTU AL SUPERMED CLASSIC [id number] 2011-Present [id number] 1954 Unknown [id number] 1954 Unknown [id number] 1954 Unknown [id number] 9 Unknown [id number] Unknown [id number] Unknown [id number] Unknown [id number] Social History Date Type Detail Facility Tobacco smoking status NHIS Unknown if ever smoked [facility] Start: 1955 Sex Assigned At Not on file [facility] Start: 08-21-2021 End: 10-04-2022 Tobacco smoking status NHIS Unknown if ever smoked [facility] Start: 08-26-2018 Cigarettes [facility] Start: 1955 Sex Assigned At Male W [facility] Gender identity Not on file [facility] Start: 12-14-2024 Tobacco smoking status NHIS Smokes tobacco daily (finding) [facility] Medical Equipment Procedure Code Equipment Code Equipment [...] Assessment Result Facility 07-27-2021 Functional status Ambulates;Bedrest [facility] Work Phone: 07-27-2021 Functional status Assistive Devices None [facility] Work Phone: Mental Status Date Assessment Result Facility 07-27-2021 Cognitive function Voice/Name [facility] Work Phone: Clinical Notes 03-04-2019 to 12-14-2024 Note Date & Type Note Facility 12-14-2024 Evaluation note Diagnosis Onset Date Resolution Essential (primary) hypertension chronic December 14, 2024 10:20am History of coronary artery stent placement March 04, 2019 chronic December 14, 2024 10:20am Hyperlipidemia chronic December 14, 2024 10:20am Nicotine dependence chronic December 14, 2024 10:20am [facility] Work Phone: 1(586) 834-389205-31-2023 NotePatient Name: Jaron Mireles Procedure Date: 11/06/2022 2:21 PM Date of : 1955 Admit Type: Outpatient Site: [facility] Proc RM 1 Ethnicity: Not or Race: White Attending MD: Vinayak Edmonds DO, [id number] Procedure: Colonoscopy Indications: Surveillance: Personal history of colonic polyps (unknown histology) on last colonoscopy more than 5 years ago Providers: Vinayak Edmonds DO (Doctor), Damaris Ferrari RN (Nurse), Joel Sanchez, Solution Lead Referring: Melvin Trujillo MD Medicines: Midazolam 7.5 [...] the patient. 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 Essential (primary) hypertension chronic Hyperlipidemia chronic History of coronary artery stent placement February 082018 resolved Fatigue acute Essential (primary) hypertension chronic Hyperlipidemia chronic History of coronary artery stent placement February 082018 resolved [facility] Work Phone: 1(441) 124-812009-26-2019 Evaluation note* Diagnosis Onset Date Resolution Status Nicotine dependence chronic Obstructive Sleep Apnea-Hypopnea Syndrome noneactive Chest pain acute Hyperlipidemia chronic History of coronary artery stent placement February 082018 resolved [facility] Work Phone: 1([phone]) 855-163709-26-2019 Evaluation note* Diagnosis Onset Date Resolution Status Chest pain acute Hyperlipidemia chronic History of coronary artery stent placement February 082018 resolved [facility] Work Phone: 1(385) 500-809909-26-2019 Evaluation note* Diagnosis Onset Date Resolution Status Essential (primary) hypertension chronic History of coronary artery stent placement February 082018 chronic Hyperlipidemia chronic [facility] Work Phone: 1(296) 368-595809-26-2019 Evaluation note* Diagnosis Onset Date Resolution Status Admit Date Essential (primary) hypertension chronic December 14, 2024 10:20am History of coronary artery stent placement March 04, 2019 chronic December 14, 025 10:20am Hyperlipidemia chronic December 14, 2024 10:20am Nicotine dependence chronic December 14, 2024 10:20am [facility] Work Phone: Evaluation note* Diagnosis Onset Date Resolution Status Chest pain acute 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 Essential (primary) hypertension chronic Hyperlipidemia chronic History of coronary artery stent placement February 082018 resolved [facility] Work Phone: Evaluation note* Diagnosis Encounter for screening for malignant neoplasm of colon Polyp of colon Benign neoplasm of colon Essential (primary) hypertension Unspecified essential hypertension Pure hypercholesterolemia, unspecified Benign prostatic hyperplasia without lower urinary tract symptoms Chronic obstructive pulmonary disease, unspecified (CMS/HCC) documented in this encounter [facility] Work Phone: Evaluation noteNo assessment information available [facility] Work Phone: Reason for referral (narrative)No reason for [facility] Work Phone: Summary Purpose Family History No Family History Records Found Relationship Condition Age at Onset Recorded Date/T izaiah brother Cerebrovascular accident (CVA) Unknown Diabetes mellitus Unknown sister Diabetes mellitus Unknown Hypertension Unknown son Hypertension Unknown father Myocardial infarction 41 Advance Directives No Advanced Directives Records FoundDocuments on File Type Date Recorded Patient Media Professional Expl anation Advance Directives and Livin g Will 03/06/2019 1:04 PM Advance Directive Response Recorded Date/ Time Advance Directives Yes March 12, 2019 9:06am Living Will Yes July 26, 2 022 8:54pm Power of County Records Management Officer Yes July 26, 2021 8:54pm Advance Directive Response Recorded Date/ Time Name of Medical Power of County Records Management Officer Kenzie Mireles - July 26, 2021 8:54pm Advance Directives Yes March 12, 2019 9:06am Living Will Yes July 26 8:54pm Power of County Records Management Officer Yes July 26, 2021 8:54pm Advance Directive Response Recorded Date/ Time Advance Directives on File Yes Decem 2021 10:28am Name of Medical Power of County Records Management Officer Claudia Mireles-w gurpreet May 22, 2022 10:28am Advance Directives Yes May 10:28am Living Will Yes May 22 10:28am Power of County Records Management Officer Yes May 22, 2022 10:28am Advance Directive Response Recorded Date/ Time Advance Directives Yes May 11:28am Living Will Yes May 22 11:28am Power of County Records Management Officer Yes May 22, 2022 11:28am Advance Directive Response Recorded Date/ Time Advance Directives Yes May 10:28am Living Will Yes May 22 10:28am Power of County Records Management Officer Yes May 22, 2022 10:28am Advance Directive Response Recorded Date/ Time Living Will Yes May 22 11:28am Do you have a Healthcare Power of County Records Management Officer? Yes May 22, 2022 11:28am Advance Directives Yes May 11:28am Discharge Instructions * Instructions* Luis Enrique Hollis MD - 03/06/2019 If he having persistent chest pain or persistent shortness of breath return to ER Otherwise consult with your primary care physician or screen repairer crusher Friday for further care regarding a chest [...] for Visit Chest pain Atherosclerotic heart disease [place] coronary artery w/angina pectoris Essential (primary) hypertension Hyperlipidemia History of coronary artery stent placement Chief Complaint CHEST PAIN CHEST PAIN CHEST PAIN CHEST PAIN CHEST PAIN 3wk fu CAD NICOTINE DEPENDENCE Reason for Visit Chest pain Atherosclerotic heart disease [place] coronary artery w/angina pectoris Essential (primary) hypertension Hyperlipidemia History of coronary artery stent placement Chief Complaint 3wk fu CAD NICOTINE DEPENDENCE 3 M FU Peripheral vascular disease, unspecified Reason for Visit Atherosclerotic hear t disease [place] coronary artery w/angina pectoris Essential (primary) hypertension [...] section and content) DATE CREATED AUTHOR 11/27/2017 [facility] DATE CREATED AUTHOR AUTHOR'S ORGANIZ ATION 12/02/2017 [facility] DATE CREATED AUTHOR AUTHOR'S ORGANIZ ATION 08/10/2018 [facility] DATE CREATED AUTHOR AUTHOR'S ORGANIZ ATION 07/24/2019 [facility] DATE CREATED AUTHOR AUTHOR'S ORGANIZ ATION 11/19/2022 [facility] DATE CREATED AUTHOR AUTHOR'S ORGANIZ ATION 11/19/2022 [facility] DATE CREATED AUTHOR AUTHOR'S ORGANIZ ATION 04/02/2025 [facility] Reason for Visit (unrecogniz ed section [...] X3 ASA AT HOME. ED PROVIDER NOTE [facility] EMERGENCY DEPARTMENT NAME: Jaron Mireles AGE: 63 y.o. : 1955 VISIT DATE: 03/06/2019 CSN: [id number] PCP: Melvin Trujillo MD Chief Complaint Patient presents with Chest Pain Is a 63-year-old with known coronary artery disease who states he just had 2 stents placed at [facility] this week coming to the emergency room [...] file Gets together: Not on file Attends sabianist service: Not on file Active member of [...] consult with his primary care physician or screen repairer crusher next week. The patient has been informed [...] Discontinue: Error Luis Enrique Hollis MD 03/06/19 [id number] Luis Enrique Hollis MD 03/06/19 [id number] Bed: 15 Expected date: 03/06/19 Expected time: [...] MD Primary Care Provider Active Chris Pineda AUTOMATIC RIVETING MACHINE OPERATOR, AUTOMATIC RIVETING MACHINE OPERATOR-C Attending Provider Active Team Status: Active Member Role Status Dates Dr. Melvin Trujillo MD Primary Care Provider Active Dr. Keith Azevedo MD Attending Provider Active Team Status: Inactive Member Role Status Dates Dr. Melvin Trujillo MD Primary Care Provider Active Chris Pineda AUTOMATIC RIVETING MACHINE OPERATOR, AUTOMATIC RIVETING MACHINE OPERATOR-C Attending Provider Active Team Status: Inactive Member [...] Provider, Referring P rovider Active Elsy Briceno AUTOMATIC RIVETING MACHINE OPERATOR, AUTOMATIC RIVETING MACHINE OPERATOR-C Active Chris H Roof AUTOMATIC RIVETING MACHINE OPERATOR, AUTOMATIC RIVETING MACHINE OPERATOR-C Attending Provider Active Team Status: Inactive Member Role Status Dates Dr. Melvin Trujillo MD Primary Care Provider Active Chris Pineda AUTOMATIC RIVETING MACHINE OPERATOR, AUTOMATIC RIVETING MACHINE OPERATOR-C Attending Provider, Referring Pro vider Active Team Status: Inactive Member Role Status Dates Dr. Melvin Trujillo MD Primary Care Provide r, Attending Provider, Referring Provider Active Chris Pineda AUTOMATIC RIVETING MACHINE OPERATOR, AUTOMATIC RIVETING MACHINE OPERATOR-C Other Provider Active Team Status: Inactive Member Role Status Dates Dr. Melvin Trujillo MD Primary Care Provider, Attending Florence quach Active Inspector Exhaust Emissions Relationship Specialty Start Date End Date Melvin Trujillo MD [address] [place] [address] PCP - General 11/06/22 Team Status: Inactive [...] 2024 End: December 14, 2024 Chris Pineda AUTOMATIC RIVETING MACHINE OPERATOR, AUTOMATIC RIVETING MACHINE OPERATOR-C Attending Provider Active S tart: December 14, [...] 2024 End: December 14, 2024 Chris Pineda AUTOMATIC RIVETING MACHINE OPERATOR, AUTOMATIC RIVETING MACHINE OPERATOR-C Attending physician Active Start: December 14, 2024 [...] BE BASED ON THE PRIMARY CLINICAL RECORDS. [employer] [facility]. provides no warranty or guarantee of the accuracy or completeness of information in this document.
[2025-05-08] MEDS: 0.9% Normal Saline (1000mL) 1,000 ML 1000 ML IV (19:59)
[2025-05-08 20:07] LABS: Hematocrit 34.3 % (40-54); Hemoglobin 12.0 g/dL (13.0-16.5); Immature Granulocytes Count 0.070 X10^3/uL (0.0-0.0); Mean Corp Hgb Conc 35.0 g/dL (32-36); Mean Corpuscular Volume 94.2 fL (80-94); Mean Platelet Vol. 10.0 fl (6.2-12.0); NRBC Flagged by Analyzer 0 % (0-5); Platelet Count 232 K/mm3 (150-450); RBC Distribution Width CV 12.9 % (11.6-14.6); RBC Distribution Width SD 44.8 fl (35.1-43.9); Red Blood Count 3.64 M/mm3 (4.6-6.2); White Blood Count 9.0 K/mm3 (4.4-11.0)
--- NOTE | 2025-05-08 20:17 | EX.ED.DYSGE1 ---
HPI History of Present Illness Chief Complaint: Complaint Detail of Chief Complaint: Urgency and discomfort with urination Informant: patient Onset/Context/Timing Onset: Today Context: Sudden Onset Timing: Intermittent Quality: Discomfort with urination with urgency and frequency Location: /urethral meatus Current Severity: Gone Maximum Severity: Moderate Worsened by: Urination Relieved by: Nothing Associated Symptoms Associated Symptoms: Documented fever and chills, hematuria Narrative Narrative: Patient is 70-year-old male. He was seen May [address] Mckeon for gross hematuria. He underwent a cystoscopy, cystoscopy lithopexy of a large bladder stone measuring 3 cm inside, cauterization of prostatic bleeding evaluation of blood clots and right ureteroscopy. Patient then underwent surgery on May 06. He underwent transurethral resection and laser of bladder stone. He had obstruction at that time. Reading through notes he was catheterized multiple times. He presents today because of documented fever, chills, pain at the urethral meatus with urination and frequency and urgency. Patient also has gross blood, which he states is expected since he had his prostate resected. He denies low back pain or flank pain. He denies nausea or vomiting. He is not on anticoagulants. He is not on antithrombotic either. He does not report bruising easily. He has a history of coronary disease, hyperlipidemia and primary hypertension. Prior similar symptoms: Yes Recent Illness/Hospitalization: Yes PFSH [facility] Medical History Wears glasses ADHD Anxiety High cholesterol Prostate disease Smoker History of echocardiogram History of stress test Hypertension Cardiology follow-up encounter Essential (primary) hypertension Elevated blood pressure reading in office without diagnosis of hypertension Nicotine dependence GERD (gastroesophageal reflux disease) Hyperlipidemia COPD (chronic obstructive pulmonary disease) Atherosclerotic heart disease [place] coronary artery w/angina pectoris Home Medications ?Medication ?Instructions ?Recorded ?Last Taken ?Type nitroglycerin 0.4 mg sublingual 0.4 mg sublingual Q5-15M PRN HEART 04/16/19 Unknown History tablet tamsulosin 0.4 mg capsule 0.4 mg PO DAILY URINE 10/19/19 05/05/25 History ascorbic acid (vitamin C) 1,000 mg 1 g PO DAILY REPLACEMENT 05/16/20 05/05/25 History tablet zinc acetate 50 mg (zinc) capsule 50 mg PO DAILY REPLACEMEN 05/16/20 05/05/25 History fluticasone propionate 50 2 spray intranasal DAILY ALLERGIES 05/15/21 05/05/25 History mcg/actuation nasal spray,suspension calcium carbonate (Tums Ultra) 400 mg PO DAILY PRN CALCIUM 05/16/22 05/05/25 History cholecalciferol (vitamin D3) 50 50 mcg PO DAILY BONES 05/16/22 05/05/25 History mcg (2,000 unit) tablet omeprazole 40 mg capsule,delayed 40 mg PO DAILY STOMACH 05/16/22 05/06/25 History release lisinopril 5 mg tablet 5 mg PO DAILY BLOOD PRESSURE 05/21/22 05/06/25 History atorvastatin 40 mg tablet 40 mg PO QHS CHOLESTEROL #90 tabs 10/01/23 05/05/25 Rx metoprolol succinate 25 mg 25 mg PO DAILY BLOOD PRESS #90 tabs 09/21/24 05/06/25 Rx tablet,extended release 24 hr (Toprol XL) vitamin B complex 1 tab PO DAILY REPLACEMENT 12/14/24 05/05/25 History ciprofloxacin HCl 500 mg tablet 500 mg PO BID #14 tabs 05/01/25 05/05/25 Rx (Cipro) ranolazine 500 mg tablet,extended 500 mg PO BID 05/04/25 05/06/25 History release,12 hr cephalexin 500 mg capsule 500 mg PO Q6 #28 CAPSULES 05/08/25 Unknown Rx Allergy/AdvReac Type Severity Reaction Status Date / Time No Known Allergies Allergy Verified 05/08/25 19:16 Family History Brother CVA (cerebral vascular accident) Diabetes Brother CVA (cerebral vascular accident) Diabetes Sister Diabetes Hypertension Son Hypertension Father , age 63 Myocardial infarction, Onset Age: 41 Surgical History History of esophagogastroduodenoscopy (EGD) History of colonoscopy History of cholecystectomy History of extracorporeal shockwave lithotripsy (ESWL) History of coronary artery stent placement (03/04/19) History of left heart catheterization (05/22/22) Social History household members: spouse housing: house Smoking Status: Current every day smoker tobacco type: cigarettes Tobacco: How many years used: 45 quit status: considering quitting alcohol intake: never substance use type: does not use caffeine: Yes Type: coffee Number of servings: 4 ROS ROS ED Constitutional Constitutional ED: Reports chills and fever(s); Denies sweats ENT ENT ED: Denies ear pain, rhinorrhea or sore throat Cardiovascular Cardiovascular: Denies chest pain or palpitations Respiratory/Chest Respiratory/Chest: Denies cough, dyspnea or dyspnea on exertion Gastrointestinal Gastrointestinal: Denies abdominal pain, diarrhea or vomiting Genitourinary Genitourinary ED: Reports dysuria, hematuria, urinary frequency and other Details: Also complains of urgency. He reports pain at the urethral meatus. Musculoskeletal Musculoskeletal: Denies arthralgias, back pain or myalgias Integumentary Denies rash Neurologic Neurologic: Denies weakness Hematologic/Lymphatic Hematologic/Lymphatic: Reports systems reviewed and no addt'l complaints, except as documented EXAM Physical Exam Const Vital Signs: 05/08/25 19:15 05/08/25 21:00 Temperature 99 F 98.9 F Temperature Source Oral Oral Pulse Rate 100 81 Respiratory Rate 18 18 Blood Pressure 103/58 L 120/68 Blood Pressure Mean 73 85 Pulse Ox 98 97 Oxygen Delivery Method Room Air Room Air Positive well nourished and well developed General Appearance ED: well developed and NAD; Negative for pallor HEENT Reports moist mucous membranes HEENT Narrative: Head is atraumatic and normocephalic. Ears normal. Nares patent. Posterior pharynx is normal Eyes PERRL and EOMs intact bilaterally General Eye ED: Negative for pale conjunctiva or scleral icterus Neck no lymphadenopathy, supple and no JVD Resp normal respiratory effort and clear to auscultation bilaterally Cardio regular rate, regular rhythm, S1 normal heart sound, S2 normal heart sound and no murmurs GI normal to inspection, nondistended, normoactive bowel sounds, non-tender, non-distended and no masses; Negative for hepatosplenomegaly Narrative: Circumcised male penis with irritation noted at the urethral meatus. Testes ascended bilaterally. No testicular or epididymal tenderness. No inguinal adenopathy or inguinal mass. Extremity normal to inspection General Extremety ED: Negative for edema or tenderness General Extremity: Negative for edema Neuro oriented x3 and CN's II-XII intact bilaterally Sensorium / Orientation: alert Psych mental status grossly normal Skin no rashes or lesions noted, no wounds and skin turgor normal General Skin Exam: Negative for jaundice or pallor MDM MDM MDM Narrative Medical decision making narrative: Since patient reported fever, chills urinary symptoms UA was obtained to determine if he has infection, which would not be surprising. Also to see if he has any systemic findings that would suggest he needs to be treated as an inpatient versus outpatient. Patient for me if he goes home he is to see Dr. Valladares tomorrow. Dr. Valladares's notes were reviewed. Patient's laboratory results were reviewed as well. History & Record Review Additional record(s) reviewed:: Prior inpatient record, Prior outpatient record and Prior labs Lab Data Attestation: I reviewed the patient's lab results. Lab results narrative: CBC is remarkable for mild macrocytic anemia with an H&H 12.0 and 34.3 and an MCV and MCH of 94.2 and 33.0. There is a slight shift with no bandemia. Urinalysis reveals proteinuria, occult blood, leukoesterase with 5-100 RBCs 25-50 WBCs and 2+ bacteria. Prior cultures revealed mixed gram-positive organism. Recommended repeat urine. This was a specimen obtained during cystoscopy. Since there is gram-positive organisms we will treat here with Maxipime in my opinion patient is a candidate for outpatient treatment. Will treat him with cephalexin. Since he has a normal GFR will not reduce frequency of dosage. Labs: Laboratory Results - last 24 hr 05/08/25 05/08/25 20:00 20:25 WBC 9.0 RBC 3.64 L Hgb 12.0 L Hct 34.3 L MCV 94.2 H MCH 33.0 H MCHC 35.0 RDW Std Deviation 44.8 H RDW Coeff of Vita 12.9 Plt Count 232 MPV 10.0 Immature Gran % (Auto) 0.800 Neut % (Auto) 75.1 H Lymph % (Auto) 11.3 L [place] % (Auto) 11.0 H Eos % (Auto) 1.1 Baso % (Auto) 0.7 Absolute Neuts (auto) 6.8 Absolute Lymphs (auto) 1.02 Nucleated RBC % 0 Sodium 137 Potassium 3.7 Chloride 101 Carbon Dioxide 23.1 Anion Gap 12 BUN 17 Creatinine 1.17 Estim Creat Clear Calc 68.21 Est GFR (MDRD) Non-Af 67 BUN/Creatinine Ratio 14.6 Glucose 147 H Calcium 8.5 Urine Color Yellow Urine Clarity Cloudy Urine pH 7.0 Ur Specific [place] 1.010 Urine Protein 100 H Urine Glucose (UA) Normal Urine Ketones Negative Urine Occult Blood 250 H Urine Nitrite Negative Urine Bilirubin Negative Urine Urobilinogen Normal Ur Leukocyte Esterase 100 H Urine RBC 50-100 SEEN Urine WBC 25-50 SEEN Ur Squamous Epith Cells 0-5 SEEN Ur Renal Epithelial Cell 0-5 SEEN Urine Bacteria 2+ Urine Mucus 0 SEEN Treatment and Re-Evaluation :: Since patient has been instrumented multiple times in the past week due to 1.5 weeks he received a dose of Maxipime in the emergency department. He has a prior cultures having gram-positive organisms he was treated with cephalexin as an outpatient. In my opinion patient is appropriate for outpatient treatment. He is scheduled to see Dr. Mckeon tomorrow. Comments:: Patient is present take his ciprofloxacin. He was instructed to discontinue ciprofloxacin since he is having symptoms on the antibiotic. After the Maxipime is infused he will be discharged to home since he has an appointment with Dr. Valladares tomorrow morning. Discharge Plan Triage Chief Complaint: Complaint ED Provider: Cecil Spence Dx/Rx/DC Orders Clinical Impression: Complicated urinary tract infection, Hematuria, Essential (primary) hypertension, Hyperlipidemia, History of coronary artery stent placement Instructions: ED Bladder Infection, Male (Adult) Prescriptions: New cephalexin 500 mg capsule 500 mg PO Q6 Qty: 28 0RF No Action tamsulosin 0.4 mg capsule 0.4 mg PO DAILY nitroglycerin 0.4 mg tablet, sublingual 0.4 mg SUBLINGUAL Q5-15M PRN (Reason: HEART) Rx Instructions: TOTAL 3 DOSES IN 15 MIN ascorbic acid (vitamin C) 1,000 mg tablet 1 g PO DAILY zinc acetate 50 mg (zinc) capsule 50 mg PO DAILY Rx Instructions: swallow whole; do not chew/break/dissolve/open fluticasone propionate 50 mcg/actuation spray,suspension 2 spray intranasal DAILY omeprazole 40 mg capsule,delayed release(DR/EC) 40 mg PO DAILY cholecalciferol (vitamin D3) 50 mcg (2,000 unit) tablet 50 mcg PO DAILY vitamin B complex Tablet 1 tab PO DAILY calcium carbonate [Tums Ultra] 400 mg calcium (1,000 mg) tablet,chewable 400 mg PO DAILY PRN (Reason: CALCIUM) lisinopril 5 mg tablet 5 mg PO DAILY ciprofloxacin HCl [Cipro] 500 mg tablet 500 mg PO BID Qty: 14 0RF ranolazine 500 mg tablet extended release 12 hr 500 mg PO BID atorvastatin 40 mg tablet 40 mg PO QHS Qty: 90 3RF metoprolol succinate [Toprol XL] 25 mg tablet extended release 24 hr 25 mg PO DAILY Qty: 90 3RF Primary Care Provider: Bi Trujillo Referrals: Bi Trujillo MD [Primary Care Provider, Family Practice] Hilario Valladares MD [Med Staff - Active Staff, Urology] - Keep Jairo appointment Print Language: Brazilian Disposition Disposition: Home, Self Care
[2025-05-08 20:29] LABS: Mucous, Urine 0 SEEN /hpf (<or=2+)
[2025-05-08 20:30] LABS: Color, Urine Yellow (Yellow); Glucose, Dipstick Normal (Normal); Ketone-Dipstick Negative (Negative); Leukocyte Esterase-Dipstick 100 /ul (Negative); Nitrite-Dipstick Negative (Negative); Occult Blood-Urine 250 /ul (Negative); Protein-Dipstick 100 mg/dl (Negative); Specific Gravity, Urine 1.010 (1.002-1.030); Urine Bilirubin Dipstick Negative (Negative)
[2025-05-08 20:33] LABS: Anion Gap 12 (5-15); BUN 17 mg/dL (4-19); BUN/Creat Ratio 14.6 RATIO (10-20); Calcium,Total 8.5 mg/dL (7.6-11.0); Carbon Dioxide 23.1 mmol/L (21.0-32.0); Chloride 101 mmol/L (98-108); Estimated Creatinine Clearance 68.21 ml/min (50-250); Glucose 147 mg/dL (70-99); Potassium 3.7 mmol/L (3.3-5.1)
[2025-05-08 20:40] LABS: Red Blood Cells-Urine 50-100 SEEN /hpf (0-5); Squamous Epithelial Cells - UA 0-5 SEEN /hpf (0-5)
[2025-05-08 21:00] VITALS: BP 120/68; PULSE 81; RESP 18; TEMP 37.2; O2SAT 97
[2025-05-08] MEDS: Cefepime HCl 2 GM in 0.9% Normal Saline (100mL MB+) 100 ML IV (21:48)
[2025-05-08 23:03] VITALS: BP 120/68; PULSE 81; RESP 18; TEMP 37.2; O2SAT 97
== END 2025-05-08 23:08 | disposition home or self-care (01) ==
PROVIDERS: Emergency Provider Emergency Medicine; PCP Family Medicine; Visit Provider Emergency Medicine
DX: N39.0 Urinary tract infection, site not specified (principal); J44.9 Chronic obstructive pulmonary disease, unspecified; Z95.5 Presence of coronary angioplasty implant and graft; I10 Essential (primary) hypertension; I25.10 Atherosclerotic heart disease of native coronary artery without angina pectoris; E78.00 Pure hypercholesterolemia, unspecified; R31.9 Hematuria, unspecified; K21.9 Gastro-esophageal reflux disease without esophagitis; Z79.899 Other long term (current) drug therapy; F17.210 Nicotine dependence, cigarettes, uncomplicated; D53.9 Nutritional anemia, unspecified; Z98.890 Other specified postprocedural states
CPT/HCPCS: 80048; 81001; 85025; 87086; 96365; 99283; A4216

== ENCOUNTER 2025-05-18 11:58 | Day surgery (SDC) | payer MEDICARE, BC, SELFPAY ==
--- NOTE | 2025-05-17 17:01 | PAT.ANE_ITS ---
Pre-Assessment Diagnosis/Proposed Procedure Planned Operative Procedure(s): Transurethral resection of prostate Anesthesia History Anesthesia History - continuing education director: Anesthesia History - continuing education director Hx Hospitalization Yes 05/17/25 11:13 Any Problems With Anesthesia No 05/17/25 11:13 Cholinesterase deficiency No 05/17/25 11:13 You/Your Family Experience No 05/17/25 11:13 fever (hyperthermia) with Relationship Recent Exposure to Contagious No 05/06/25 08:16 Disease Does patient have nerve No 05/17/25 11:13 stimulator Patient instructed to have device shut off --Does patient have Pacemaker or ICD? When Was Last Pacemaker Check QUESTION #4 FULL TEXT: You/Your Family Experience fever (hyperthermia) with Anesthesia Last Oral Intake Last Oral intake: Last Oral Intake NPO since Meds taken in AM with sips of water? Meds patient instructed to take am of surgery PONV PONV - continuing education director: PONV - continuing education director Female No 05/17/25 11:13 HX of Motion Sickness No 05/17/25 11:13 HX of N/V After Surgery No 05/17/25 11:13 Non-Smoker Yes 05/17/25 11:13 Duration of Surgery greater No 05/17/25 11:13 than 60 minutes Number of Risk Factors 1 05/17/25 11:13 PONV Score Low Risk 05/17/25 11:13 Height & Weight Height & Weight: Anesthesia: Height & Weight Height 6 ft 3 in 05/08/25 19:15 Respiratory Assessment Respiratory Assessment - continuing education director: Respiratory Tract Infection Hx - continuing education director Hx Respiratory Tract Infection No 05/17/25 11:13 STOP Sleep Apnea STOP Sleep Apnea - continuing education director: STOP Sleep Apnea - continuing education director Hx Hypertension Yes: CONTROLLED 05/17/25 11:13 Hx Sleep Apnea No 05/17/25 11:13 CPAP No 05/17/25 11:13 BIPAP Do you snore loudly (louder No 05/17/25 11:13 than talking or can be heard Do you often feel tired/ No 05/17/25 11:13 fatigued/ sleepy during daytime? Has anyone observed you stop No 05/17/25 11:13 breathing during sleep? STOP Results Negative 05/17/25 11:13 QUESTION #5 FULL TEXT : Do you snore loudly (louder than talking or can be heard through closed doors)? 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 Specify any problems Hx of Preganancy in last 3 N/A 05/17/25 11:13 Months Nurse Filling Out Transfusion [id number] 05/17/25 11:13 & Questions: Date: 05/17/25 05/17/25 11:13 Time: 11:14 05/17/25 11:13 Patient unable to answer at this time (ie. confused, unrespo /Reproduction History /Reproductive History - continuing education director: /Reproductive Hx- continuing education director Hx Now Gestational Age (in weeks): EDC: Hx Hx Para Hx Section SAB No 05/17/25 11:13 Does the father of the baby or his family experience fever w Father of the baby Malignant Hypertension history comment Active Medications Active Medications: Current Medications Generic Name Dose Route Start Last Admin Trade Name Freq PRN Reason Stop Dose Admin Cefazolin Sodium 2 gm/ Sodium 110 mls @ 200 mls/hr 05/18/25 07:00 Chloride IV 05/18/25 07:32 INTRAOP ONE PFSH Medical History Wears glasses ADHD Anxiety High cholesterol Prostate disease Smoker History of echocardiogram History of stress test Hypertension Cardiology follow-up encounter Essential (primary) hypertension Elevated blood pressure reading in office without diagnosis of hypertension Nicotine dependence GERD (gastroesophageal reflux disease) Hyperlipidemia COPD (chronic obstructive pulmonary disease) Atherosclerotic heart disease [place] coronary artery w/angina pectoris Home Medications ?Medication ?Instructions ?Recorded ?Last Taken ?Type nitroglycerin 0.4 mg sublingual 0.4 mg sublingual Q5-1 5M PRN HEART 04/16/19 Unknown History tablet tamsulosin 0.4 mg capsule 0.4 mg PO DAILY URINE 05/05/25 History ascorbic acid (vitamin C) 1,000 mg 1 g PO DAILY REPLAC EMENT 05/16/20 05/05/25 History tablet zinc acetate 50 mg (zinc) capsule 50 mg PO DAILY REPLA CEMEN 05/16/20 05/05/25 History fluticasone propionate 50 2 spray intranasal DAILY PRN 05/15/21 05/05/25 History mcg/actuation nasal ALLERGIES spray,suspension calcium carbonate (Tums Ultra) 400 mg PO DAILY PRN BENJI CIUM 05/16/22 05/05/25 History cholecalciferol (vitamin D3) 50 50 mcg PO DAILY BONES 05/16/22 05/05/25 History mcg (2,000 unit) tablet omeprazole 40 mg capsule,delayed 40 mg PO DAILY STOMAC H 05/16/22 05/06/25 History release lisinopril 5 mg tablet 5 mg PO DAILY BLOOD PRESSURE 05/21/22 05/06/25 History atorvastatin 40 mg tablet 40 mg PO QHS CHOLESTEROL #90 tabs 10/01/23 05/05/25 Rx metoprolol succinate 25 mg 25 mg PO DAILY BLOOD PRESS #90 tabs 09/21/24 05/06/25 Rx tablet,extended release 24 hr (Toprol XL) vitamin B complex 1 tab PO DAILY REPLACEMENT 0 12/14/24 05/05/25 History ranolazine 500 mg tablet,extended 500 mg PO BID 05/06/25 History release,12 hr Allergy/AdvReac Type Severity Reaction Status Date / Time No Known Allergies Allergy Verified 05/17/25 11:08 Family History Brother CVA (cerebral vascular accident) Diabetes Brother CVA (cerebral vascular accident) Diabetes Sister Diabetes Hypertension Son Hypertension Father , age 63 Myocardial infarction, Onset Age: 41 Surgical History History of esophagogastroduodenoscopy (EGD) History of colonoscopy History of cholecystectomy History of extracorporeal shockwave lithotripsy (ESWL) History of coronary artery stent placement (03/04/19) History of left heart catheterization (05/22/22) Social History household members: spouse housing: house Smoking Status: Current some day smoker tobacco type: cigarettes Tobacco: How many years used: 45 quit status: considering quitting alcohol intake: never substance use type: does not use caffeine: Yes Type: coffee Number of servings: 4 Audit: Pertinent Findings Pertinent Findings EKG Perinent findings: EKG 05/01/2025. Normal sinus rhythm. Nonspecific ST abnormality. When compared with the EKG of July 27, 2021 no significant change was found Echo (EF%) pertinent findings: Echo 06/21/2022. Normal LV size. Left ventricular systolic function is normal. EF is 55%. Stage I diastolic dysfunction. Consult pertinent findings: Cardiology visit 12/14/2024. He has history of coronary artery disease with stenting to his LAD and circumflex on March 04, 2019. He has a history of hyperlipidemia and tobacco use. He underwent repeat cardiac catheterization in March of the same year and his stents were noted to be patent with preserved ejection fraction and no wall motion abnormalities noted. He states he was having chest discomfort and indigestion and presented to the emergency room in July 2021 and underwent a cardiac catheterization which demonstrated 40% stenosis in the circumflex OM 2, and 50 to 60% stenosis of his distal RCA. He on the repeat catheterization May 30 that showed moderate RCA disease. He denies chest arm jaw or neck discomfort. This appears stable. Will continue to monitor and not make any medications regimen changes. Recommendation Anesthesia Recommendation Anesthesia recommendation: OPTIMIZED for anesthesia
[2025-05-18] VITALS (15 sets, daily range): BP systolic 100–140; BP diastolic 58–84; PULSE 65–95; RESP 16–20; TEMP 36.4–36.6; O2SAT 92–100; BMI 22.3
[2025-05-18] MEDS: Lactated Ringers 1,000 ML 15 ML IV (12:23)
--- NOTE | 2025-05-18 12:32 | PCM.PRE.AN2 ---
ASA Classification* ASA Classification ASA Classification: 3 Assessment & Plan Anesthesia* Anesthesia Assessment Anesthesia Assessment: Discussed sedation and/or anesthesia options, risks, benefits, and alternatives with patient/parents/legal guardian/POA. Questions invited. The patient/parents/legal guardian/POA seems to understand and agrees to proceed with anesthesia plan. Reviewed the physical assessment, medical history, allergy history and patient home medications list prior to surgery/procedure/anesthetic and documented any changes. Performed airway and anesthesia risk assessments. Anesthesia Type Anesthesia Type: General History Source History Obtained from:: Patient and Chart Anesthesia Focused Assessment* Temperature: 97.8 F Pulse Rate: 76 Blood Pressure: 133/73 Respiratory Rate: 16 Pulse Ox: 98 Oxygen Delivery Method: Room Air Airway Assessment Mouth opens: >3 cm Mallampati Score: II Teeth Condition: Chipped/Broken Comment: poor dentition Labs Anesthesia Preop lab: CBC WBC, (4.4-11.0) 9.0 K/mm3 05/08/25, 20:00 RBC, (4.6-6.2) 3.64 M/mm3 L 05/08/25, 20:00 Hgb, (13.0-16.5) 12.0 g/dL L 05/08/25, 20:00 Hct, (40-54) 34.3 % L 05/08/25, 20:00 Plt Count, (150-450) 232 K/mm3 05/08/25, 20:00 CHEMISTRY Potassium, (3.3-5.1) 3.7 mmol/L 05/08/25, 20:00 Sodium, (133-145) 137 mmol/L 05/08/25, 20:00 Magnesium, (1.6-2.6) 2.3 mg/dL 01/21/23, 14:53 Phosphorus, (2.5-4.9) 2.9 mg/dL 01/21/23, 14:53 BUN, (4-19) 17 mg/dL 05/08/25, 20:00 Creatinine, (0.70-1.20) 1.17 mg/dL 05/08/25, 20:00 Glucose, (70-99) 147 mg/dL H 05/08/25, 20:00 TSH, (0.358-3.74) 2.18 uIU/mL 01/21/23, 14:53 COAG PT, (11.7-14.9) 13.1 SECONDS 08/07/18, 00:55 Pre-Assessment Diagnosis/Proposed Procedure Planned Operative Procedure(s): Transurethral resection of prostate Anesthesia History Anesthesia History - technology internship: Anesthesia History - technology internship Hx Hospitalization Yes 05/17/25 11:13 Any Problems With Anesthesia No 05/17/25 11:13 Cholinesterase deficiency No 05/17/25 11:13 You/Your Family Experience No 05/17/25 11:13 fever (hyperthermia) with Relationship Recent Exposure to Contagious No 05/18/25 12:20 Disease Does patient have nerve No 05/17/25 11:13 stimulator Patient instructed to have device shut off --Does patient have Pacemaker No 05/18/25 12:20 or ICD? When Was Last Pacemaker Check QUESTION #4 FULL TEXT: You/Your Family Experience fever (hyperthermia) with Anesthesia Last Oral Intake Last Oral intake: Last Oral Intake NPO since 08:30 05/18/25 12:20 Meds taken in AM with sips of Yes 05/18/25 12:20 water? Meds patient instructed to see home med list 05/18/25 12:20 take am of surgery PONV PONV - technology internship: PONV - technology internship Female No 05/17/25 11:13 HX of Motion Sickness No 05/17/25 11:13 HX of N/V After Surgery No 05/17/25 11:13 Non-Smoker Yes 05/17/25 11:13 Duration of Surgery greater No 05/17/25 11:13 than 60 minutes Number of Risk Factors 1 05/17/25 11:13 PONV Score Low Risk 05/17/25 11:13 Height & Weight Height & Weight: Anesthesia: Height & Weight Height 6 ft 3 in 05/18/25 12:20 Weight: 81 kg 05/18/25 12:20 Body Mass Index (BMI) 22.3 05/18/25 12:20 Respiratory Assessment Respiratory Assessment - technology internship: Respiratory Tract Infection Hx - technology internship Hx Respiratory Tract Infection No 05/17/25 11:13 STOP Sleep Apnea STOP Sleep Apnea - technology internship: STOP Sleep Apnea - technology internship Hx Hypertension Yes: CONTROLLED 05/17/25 11:13 Hx Sleep Apnea No 05/17/25 11:13 CPAP No 05/17/25 11:13 BIPAP Do you snore loudly (louder No 05/17/25 11:13 than talking or can be heard Do you often feel tired/ No 05/17/25 11:13 fatigued/ sleepy during daytime? Has anyone observed you stop No 05/17/25 11:13 breathing during sleep? STOP Results Negative 05/17/25 11:13 QUESTION #5 FULL TEXT : Do you snore loudly (louder than talking or can be heard through closed doors)? 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 Specify any problems Hx of Preganancy in last 3 N/A 05/17/25 11:13 Months Nurse Filling Out Transfusion [email or web address] 05/17/25 11:13 & Questions: Date: 05/17/25 05/17/25 11:13 Time: 11:14 05/17/25 11:13 Patient unable to answer at this time (ie. confused, unrespo /Reproduction History /Reproductive History - technology internship: /Reproductive Hx- technology internship Hx Now Gestational Age (in weeks): EDC: Hx Hx Para Hx Section SAB No 05/17/25 11:13 Does the father of the baby or his family experience fever w Father of the baby Malignant Hypertension history comment Active Medications Active Medications: Current Medications Generic Name Dose Route Start Last Admin Trade Name Freq PRN Reason Stop Dose Admin Lactated Ringer's 1,000 mls @ 15 mls/hr 05/18/25 12:15 05/18/25 12:23 IV 15 mls/hr .Q48H BALBIR Administration PFSH Medical History Wears glasses ADHD Anxiety High cholesterol Prostate disease Smoker History of echocardiogram History of stress test Hypertension Cardiology follow-up encounter Essential (primary) hypertension Elevated blood pressure reading in office without diagnosis of hypertension Nicotine dependence GERD (gastroesophageal reflux disease) Hyperlipidemia COPD (chronic obstructive pulmonary disease) Atherosclerotic heart disease [place] coronary artery w/angina pectoris Home Medications ?Medication ?Instructions ?Recorded ?Last Taken ?Type nitroglycerin 0.4 mg sublingual 0.4 mg sublingual Q5-15M PRN HEART 04/16/19 Unknown History tablet tamsulosin 0.4 mg capsule 0.4 mg PO DAILY URINE 10/19/19 05/18/25 History ascorbic acid (vitamin C) 1,000 mg 1 g PO DAILY REPLACEMENT 05/16/20 05/17/25 History tablet zinc acetate 50 mg (zinc) capsule 50 mg PO DAILY REPLACEMEN 05/16/20 05/17/25 History fluticasone propionate 50 2 spray intranasal DAILY PRN 05/15/21 05/05/25 History mcg/actuation nasal ALLERGIES spray,suspension calcium carbonate (Tums Ultra) 400 mg PO DAILY PRN CALCIUM 05/16/22 05/17/25 History cholecalciferol (vitamin D3) 50 50 mcg PO DAILY BONES 05/16/22 05/17/25 History mcg (2,000 unit) tablet omeprazole 40 mg capsule,delayed 40 mg PO DAILY STOMACH 05/16/22 05/18/25 History release lisinopril 5 mg tablet 5 mg PO DAILY BLOOD PRESSURE 05/21/22 05/17/25 History atorvastatin 40 mg tablet 40 mg PO QHS CHOLESTEROL #90 tabs 10/01/23 05/17/25 Rx metoprolol succinate 25 mg 25 mg PO DAILY BLOOD PRESS #90 tabs 09/21/24 05/18/25 Rx tablet,extended release 24 hr (Toprol XL) vitamin B complex 1 tab PO DAILY REPLACEMENT 12/14/24 05/17/25 History ranolazine 500 mg tablet,extended 500 mg PO BID 05/04/25 05/18/25 History release,12 hr Allergy/AdvReac Type Severity Reaction Status Date / Time No Known Allergies Allergy Verified 05/18/25 12:00 Family History Brother CVA (cerebral vascular accident) Diabetes Brother CVA (cerebral vascular accident) Diabetes Sister Diabetes Hypertension Son Hypertension Father , age 63 Myocardial infarction, Onset Age: 41 Surgical History History of esophagogastroduodenoscopy (EGD) History of colonoscopy History of cholecystectomy History of extracorporeal shockwave lithotripsy (ESWL) History of coronary artery stent placement (03/04/19) History of left heart catheterization (05/22/22) Social History household members: spouse housing: house Smoking Status: Current some day smoker tobacco type: cigarettes Tobacco: How many years used: 45 quit status: considering quitting alcohol intake: never substance use type: does not use caffeine: Yes Type: coffee Number of servings: 4 Prior Cardiac Testing/Procedures Prior Cardiac Testing/Procedures: Echocardiogram (Echocardiogram from 06/21/2022: Interpretation Summary Normal LV size. Left ventricular systolic function is normal. The estimated ejection fraction is 55 %. Stage 1 diastolic dysfunction. Contrast injection was performed) Addt'l Information Additional Findings: >4 Mets Review of Systems (Anesthesia) ROS Narrative System reviewed and no additional complaints, except as documented. Physical Exam Const alert, oriented x3 and average body habitus Resp normal respiratory effort and normal air movement Cardio regular rate and regular rhythm Neuro oriented x3 and moves all extremities
[2025-05-18] MEDS: Lactated Ringers 1,000 ML 1000 ML IV (13:17)
[2025-05-18] MEDS: Cefazolin 1 GM/5 ML Vial 2 GM IV (13:17)
[2025-05-18] MEDS: Lidocaine 1% (5 ml sdv) 5 ML Vial IV (13:22)
[2025-05-18] MEDS: fentaNYL 100 MCG/2 ML Ampul IV (13:22)
--- NOTE | 2025-05-18 14:02 | DCINST_ITS ---
Discharge Instructions DC O2, CPAP, BIPAP needs Home O2 Discharge instructions: No Dressing / Incision Discharge Activity: Return to Normal Activity and May Not Drive (while taking narcotic pain medications.) Dressing / Incision Call your doctor if you observe: Fever of 101 or Higher Follow Up Care Please Follow Up With: Hilario Valladares MD When: Call [phone] for an appointment Test Results: Test results from this visit will be discussed in further detail at your follow- up appointment, if applicable. Discharge Plan Admission Primary Reason for Your Visit: turp Attending Provider: Hilario Valladares Primary Care Provider: Bi Trujillo Instructions Print Language: Citizen Of [place] Discharge Orders/Prescriptions Prescriptions: New ciprofloxacin HCl [Cipro] 500 mg tablet 500 mg PO BID Qty: 10 0RF Continued tamsulosin 0.4 mg capsule 0.4 mg PO DAILY nitroglycerin 0.4 mg tablet, sublingual 0.4 mg SUBLINGUAL Q5-15M PRN (Reason: HEART) Rx Instructions: TOTAL 3 DOSES IN 15 MIN ascorbic acid (vitamin C) 1,000 mg tablet 1 g PO DAILY zinc acetate 50 mg (zinc) capsule 50 mg PO DAILY Rx Instructions: swallow whole; do not chew/break/dissolve/open fluticasone propionate 50 mcg/actuation spray,suspension 2 spray intranasal DAILY PRN (Reason: ALLERGIES) omeprazole 40 mg capsule,delayed release(DR/EC) 40 mg PO DAILY cholecalciferol (vitamin D3) 50 mcg (2,000 unit) tablet 50 mcg PO DAILY vitamin B complex Tablet 1 tab PO DAILY calcium carbonate [Tums Ultra] 400 mg calcium (1,000 mg) tablet,chewable 400 mg PO DAILY PRN (Reason: CALCIUM) lisinopril 5 mg tablet 5 mg PO DAILY ranolazine 500 mg tablet extended release 12 hr 500 mg PO BID atorvastatin 40 mg tablet 40 mg PO QHS Qty: 90 3RF metoprolol succinate [Toprol XL] 25 mg tablet extended release 24 hr 25 mg PO DAILY Qty: 90 3RF Referrals / Follow Up: Bi Trujillo MD [Primary Care Provider, Family Practice] Disposition Disposition (needs filled in before D/C Order can be placed): Home, Self Care
--- NOTE | 2025-05-18 14:02 | PCM.OPRPT ---
Operative Report (Standard) Operative Information Date of Procedure: 05/18/25 Pre-Operative Diagnosis: BPH with obstruction status post for stage TURP Post-Operative Diagnosis: , Second stage TURP Surgery/Procedure Performed: TURP, second stage metal tank erector: No Type of Anesthesia: General RN Documented Start/Stop Times: Operation Date: 05/18/25 14:15 Case Time Into Pre-Op 05/18/25 12:00 Out of Pre-Op 05/18/25 13:12 Anesthesia Start 05/18/25 13:17 Into Room 05/18/25 13:17 Procedure Start 05/18/25 13:30 Procedure End 05/18/25 13:59 Procedure Start Time: 13:30 Procedure Stop Time: 14:03 Select all DRAINS/GRAFTS/IMPLANTS that apply: Drains Drain details: 22 Monegasque three-way Estimated Blood Loss: Minimal Specimen collected: Yes Description of specimen(s) removed: Prostate tissue Description of surgery: In the preoperative setting I discussed with the patient how the surgery would be done with expect afterwards. We discussed how a prostate resection is done and we discussed the risk of the surgery including, bleeding, infection, retrograde ejaculation, changes with ejaculation or intercourse,. We discussed the possibility that the resection of the prostate may not alleviate his urinary symptoms. We discussed the small risk of developing scar tissue along the urethral channel and strictures. We also discussed the chance of the prostate could grow back and he may need further surgery or treatment in the future for prostate problems. Patient was taken back to the operating room, timeout procedure was performed, he was identified and marked and placed on the operating room table. He underwent general anesthesia. He had undergone a prior resection of the prostate as a for stage resection and now comes back for second stage resection, he still having difficulty with urination at least he is free of a catheter but still having a flow problem so organ resect more tissue. He was placed in dorsolithotomy position. Penis and testicles were prepped and draped in usual sterile fashion. Went into the bladder using the visual obturator with a resectoscope. Once inside the bladder identified the right and left ureteral orifice. I then identified the prostate and the anatomy of the prostate. I marked out the area of the sphincter and the verumontanum was identified. I then proceeded with the prostate resection first resected the median lobe. And then resected the right lobe of the prostate. Then to resect the left lobe of the prostate. I then resected the apical tissue of the prostate. This was a complete resection of all obstructive tissue to improve voiding and relieve obstruction. I then made sure that there was no injury to the sphincter or the verumontanum was still intact. At the end of the resection all the chips were Ellik out of the bladder. I then identified the left and right ureteral orifice and these were confirmed to be in good position and effluxing and not injured. The resectoscope was removed, a 22 Monegasque catheter was placed into the bladder on continuous irrigation. And the urine was fairly light pink color and draining normally. He was taken back to the PACU in good condition. CPT 58044 Surgical Findings: Second stage resection completed Complications Complications: No Admit VTE Documentation VTE Present on Admission: No VTE Mechan Device Prophylaxis: SCD's VTE Pharm Prophylaxis ordered?: No
--- NOTE | 2025-05-18 14:13 | PCM.POST.ANE ---
Anesthesia: Postop Eval I Current Vital Signs Temperature: 97.5 F Pulse Rate: 81 Blood Pressure: 130/70 Respiratory Rate: 20 Pulse Ox: 97 Assessment Airway patent: Yes Spontaneous unlabored respirations: Yes nausea: No Vomiting: No Anesthesia Complication: No Fluid Hydration Crystalloid volume administer (ml): 1,000 Total IV fluid infused: 1,000 Progress Note Anesthesia document: Postop Eval 1 completed: Yes
--- NOTE | 2025-05-18 14:15 | PROS_PTH ---
PATIENT: JARON MIRELES LOC: [facility] U#:[id number] AGE/SX: 70/M ROOM: RE05/18/[address]: Dr. Hilario Valladares MD : [id number] BED: DIS: 05/19/2025 SPEC #: [id number] RECD: 05/18/25 14:36 STATUS: MAT REQ #: [id number] HOLGER: 05/18/25 14:[address]: Hilario Valladares DEPT: SURGICAL PATHOLOGY RECD BY: Kota Guerra ENTERED: 05/18/25 15:29 SP TYPE: TURP OTHR DR: Dr. Bi Trujillo MD Tissues: A - Prostate, NOS Procedures: Immunohistochemical Stains Surgery Specimen Level IV IHC Stain ADDITIONAL HEADER OPERATION: Cysto, transurethral resection prostate PRE-OP DIAGNOSIS: Benign prostatic hyperplasia TISSUE SUBMITTED: A- Prostate chips MICROSCOPIC DIAGNOSIS A. 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 - Patchy necrosis with acute inflammation - see note. - PIN4 IHC (A2, A7) supports the histologic impression. Note: The history of a prior TURP is noted (no pathology is available for review). MICROSCOPIC DESCRIPTION Slides are reviewed. All matched controls reacted appropriately. These tests were developed and their performance characteristics determined by [facility]. They may not have been cleared or approved by the U.S. Food and Drug Administration. The FDA has determined that such clearance or approval is not necessary. The above immunohistochemical markers and/or special?stains have been reviewed by the Pathologist. GROSS DESCRIPTION A. Received in formalin labeled with the patient's name and date of . Designated as prostate tissue is a 19.7 g, 6.9 x 6.3 x 1.2 cm aggregate of irregular, engel, rubbery and cauterized tissue fragments. Entirely submitted in 10 cassettes. MN 05/18/2025 CPT:58199,19018t5
--- NOTE | 2025-05-18 14:31 | POSTOPAN2_ITS ---
Anesthesia Postop Eval I Sum Postop Eval Completion status Anesthesia document: Postop Eval 1 completed: Yes Anesthesia Postop Eval I Summary Anesthesia Postop Eval I Summary: Anesthesia Postop Eval I: Assessment Summary Airway patent Yes 05/18/25 14:13 FURNITURE MECHANIC.CSIR Spontaneous unlabored Yes 05/18/25 14:13 FURNITURE MECHANIC.CSIR respirations Mental status nausea No 05/18/25 14:13 FURNITURE MECHANIC.CSIR Vomiting No 05/18/25 14:13 FURNITURE MECHANIC.CSIR Anesthesia Postop Eval I: Fluid Summary Crystalloid volume administer 1,000 05/18/25 14:13 FURNITURE MECHANIC.CSIR (ml) Colloids volume administered ( ml) Blood Product volume administered (ml) Total IV fluid infused 1,000 05/18/25 14:13 FURNITURE MECHANIC.CSIR Anesthesia Postop Eval I: Summary Notes Anesthesia Complication No 05/18/25 14:13 FURNITURE MECHANIC.CSIR Anesthesia Complication Comment: Post-operative progress note Anesthesia: Postop Eval II Evaluation Mental status: Awake and Calm Pain Level: 1 nausea: No Vomiting: No Complications Anesthesia Complication: No
--- NOTE | 2025-05-18 14:31 | PCM.POSTANE2 ---
Anesthesia Postop Eval I Sum Postop Eval Completion status Anesthesia document: Postop Eval 1 completed: Yes Anesthesia Postop Eval I Summary Anesthesia Postop Eval I Summary: Anesthesia Postop Eval I: Assessment Summary Airway patent Yes 05/18/25 14:13 POST TRONIC MACHINE OPERATOR.CSIR Spontaneous unlabored Yes 05/18/25 14:13 POST TRONIC MACHINE OPERATOR.CSIR respirations Mental status nausea No 05/18/25 14:13 POST TRONIC MACHINE OPERATOR.CSIR Vomiting No 05/18/25 14:13 POST TRONIC MACHINE OPERATOR.CSIR Anesthesia Postop Eval I: Fluid Summary Crystalloid volume administer 1,000 05/18/25 14:13 POST TRONIC MACHINE OPERATOR.CSIR (ml) Colloids volume administered ( ml) Blood Product volume administered (ml) Total IV fluid infused 1,000 05/18/25 14:13 POST TRONIC MACHINE OPERATOR.CSIR Anesthesia Postop Eval I: Summary Notes Anesthesia Complication No 05/18/25 14:13 POST TRONIC MACHINE OPERATOR.CSIR Anesthesia Complication Comment: Post-operative progress note Anesthesia: Postop Eval II Evaluation Mental status: Awake and Calm Pain Level: 1 nausea: No Vomiting: No Complications Anesthesia Complication: No
[2025-05-18] MEDS: 0.9% Normal Saline (1000mL) 1,000 ML 125 ML IV (16:11)
[2025-05-18] MEDS: Cefazolin 1 GM/50 ML BAG IV (21:17)
[2025-05-19] MEDS: 0.9% Normal Saline (1000mL) 1,000 ML 125 ML IV (00:44)
[2025-05-19 03:39] VITALS: BP 100/58; PULSE 65; RESP 16; TEMP 36.6; O2SAT 97
[2025-05-19] MEDS: Cefazolin 1 GM/50 ML BAG IV (05:03)
--- NOTE | 2025-05-19 07:25 | PCM.PN.GU ---
Subjective Subjective s/p turp d/c [facility] Objective Data Objective Data Vital Signs: Vital Signs Temp Pulse Resp BP Pulse Ox O2 Del Method 97.8 F 65 16 100/58 L 97 Room Air 05/19/25 03:39 05/19/25 03:39 05/19/25 03:39 05/19/25 03:39 05/19/25 03:39 05/19/25 03:39 Oxygen Delivery Method Room Air Weight: 81 kg Body Mass Index (BMI) 22.3 Intake & Output: Intake and Output for Last 24 Hours 05/17/25 05/18/25 05/19/25 23:59 23:59 23:59 Intake Total 649.25 / 649.25 1050 / 1050 Output Total 705 / 705 1999 Balance -55.75 / -55.75 -950 / -950
[2025-05-19 08:19] VITALS: BP 150/80; PULSE 68; RESP 17; TEMP 36.6; O2SAT 100
--- NOTE | 2025-05-19 08:24 | NURSING ---
hbatti removed by
[2025-05-19] MEDS: Zinc Sulfate 50 mg zinc (220 mg) ORAL capsule PO (08:25)
[2025-05-19 08:26] VITALS: PULSE 68
[2025-05-19] MEDS: Metoprolol(XL)Succ 25 MG Tablet PO (08:26)
[2025-05-19] MEDS: Cholecalciferol (VIT D3) 25 MCG TABLET (1,000 UNITS) 50 MCG PO (08:26)
--- NOTE | 2025-05-19 10:14 | PHA.DC.COU.R ---
Pharmacy [facility] has performed discharge medication counseling for this patient. The patient was counseled on the following discharge medications and changes in medications for homegoing review. - Ciprofloxacin 500 mg tablet The Reason for Use, instructions for use, and potential side effects were reviewed for all new medications. The patient's questions regarding all of their medications were answered. The patient was able to verbally demonstrate an understanding of their discharge medications. Medications at Discharge Home Medications nitroglycerin 0.4 mg sublingual tablet 0.4 mg sublingual Q5-15M PRN HEART 04/16/19 tamsulosin 0.4 mg capsule 0.4 mg PO DAILY URINE 10/19/19 ascorbic acid (vitamin C) 1,000 mg tablet 1 g PO DAILY REPLACEMENT 05/16/20 zinc acetate 50 mg (zinc) capsule 50 mg PO DAILY REPLACEMEN 05/16/20 fluticasone propionate 50 mcg/actuation nasal spray,suspension 2 spray intranasal DAILY PRN ALLERGIES 05/15/21 calcium carbonate (Tums Ultra) 400 mg PO DAILY PRN CALCIUM 05/16/22 cholecalciferol (vitamin D3) 50 mcg (2,000 unit) tablet 50 mcg PO DAILY BONES 05/16/22 omeprazole 40 mg capsule,delayed release 40 mg PO DAILY STOMACH 05/16/22 lisinopril 5 mg tablet 5 mg PO DAILY BLOOD PRESSURE 05/21/22 atorvastatin 40 mg tablet 40 mg PO QHS CHOLESTEROL #90 tabs 10/01/23 metoprolol succinate 25 mg tablet,extended release 24 hr (Toprol XL) 25 mg PO DAILY BLOOD PRESS #90 tabs 09/21/24 vitamin B complex 1 tab PO DAILY REPLACEMENT 12/14/24 ranolazine 500 mg tablet,extended release,12 hr 500 mg PO BID 05/04/25 ciprofloxacin HCl 500 mg tablet (Cipro) 500 mg PO BID #10 tabs 05/18/25
== END 2025-05-19 11:25 | disposition home or self-care (01) ==
LOC: SDC 11:58 → AC 11:59 → MS3 14:40
PROVIDERS: PCP Family Medicine; Referring Provider Urology; Visit Provider Urology
PROC: 0VT08ZZ Resection of Prostate, Via Natural or Artificial Opening Endoscopic (ICD-10-PCS; CPT 52601; principal; 2025-05-18 14:05)
DX: N40.1 Benign prostatic hyperplasia with lower urinary tract symptoms (principal); R39.14 Feeling of incomplete bladder emptying; N35.919 Unspecified urethral stricture, male, unspecified site; F17.210 Nicotine dependence, cigarettes, uncomplicated; Z79.899 Other long term (current) drug therapy
CPT/HCPCS: 52601; 00914; 88305; 88341; 88342; 94668; 99406; J2405

== ENCOUNTER → 2025-06-03 | Outpatient (CLI) | payer MEDICARE, BC, SELFPAY ==
--- OUTSIDE RECORDS SUMMARY | 2025-06-03 14:16 | XMS RPT_ITS | CCD ---
Author Organization [facility] Team Providers Care Nursing Home Manager Name Role Phone Carrillo Bernal Unavailable Unavailable Carrillo Bernal Unavailable Unavailable VIGESAA, BRINDA Robison Unavailable Unavailable TRUJILLO, MELVIN A Unavailable Unavailable VIGESAA, BRINDA S Unavailable Unavailable TRUJILLO, MELVIN A Unavailable Unavailable VIGESAA, BRINDA S Unavailable Unavailable TRUJILLO, MEVLIN A Unavailable Unavailable VIGESAA, BRINDA S Unavailable [...] Provider Dr. Melvin Trujillo Referring Provider Wynne UTILITY MANAGER, UTILITY MANAGER-C [place] Attending Provider Dr. Keith Azevedo Attending Provider Roof UTILITY MANAGER, UTILITY MANAGER-C Chris Bradley Attending Provider Dr. Melvin Trujillo Primary Care Provider Dr. Melvin Trujillo Referring Provider Dr. Melvin Trujillo Primary Care Provider Dr. Keith Azevedo Attending Provider Roof UTILITY MANAGER, UTILITY MANAGER-C Chris Bradley Attending Provider Dr. Melvin Trujillo Referring Provider Dr. Vinayak Edmonds Attending Unavailable Dr. Melvin Trujillo Primary Care Unavailable Dr. Melvin Trujillo Referring Unavailable Dr. Vinayak Edmonds Admitting Unavailable Dr. Melvin Trujillo Primary Care Provider Edwin UTILITY MANAGER, UTILITY MANAGER-C Chris Bradley Attending Provider Melvin Trujillo MD Primary Care Provider Dr. Melvin Trujillo MD Primary Care Provider Dr. Melvin Trujillo MD Referring Provider Edwin UTILITY MANAGER-CChris Attending Provider Dr. Melvin Trujillo MD Primary Care Physician Edwin UTILITY MANAGER-C, Chris Bradley Attending Physician Blaine TABARES, Dr. Hilario Garcia Attending Physician Blaine TABARES, Dr. Hilario Garcia Ref[facility] Attending Physician Alidaorrow UTILITY MANAGER-CKade Referring Provider Melvin Trujillo Primary Care Unavailable Alidaorrow UTILITY MANAGERKade Attending Unavailable [facility] Kade ROMANO Referring Unavailable Melvin Trujillo Primary Care Unavailable Melvin Trujillo Attending Unavailable Melvin Trujillo Referring Unavailable Melvin Trujillo Primary Care Unavailable Hilario Valladares Attending Unavailable Hilario Valldaares Referring Unavailable Melvin Trujillo Primary Care Unavailable [...] nasa l route three times daily Ipratropium [place] Active 2 SPRAY INTRANASAL THREE TIMES A [...] sources) Start: 05-16-[address] [facility] once daily Completed/Discontinued Medications Medication Drug [...] 9:34am Start: 08-26-2018 End: 02-26-2019 Famotidine-Ca Carb-Mag [place] x Discontinued 1 - 2 EACH PO [...] 20, 2022 4:21pm December 16, 2023 9:58am Ozmmkrkn-Sae-Hpcbu -Vit K-Lycop (One-A-Day Men's Multivitamin) 400-20-300 mcg tablet (13 sources) Start: 11-27-2021 End: 12-14-2024 Mdneydpz-Bzz-Guowk- Vit K-Lycop (One-A-Day Men's Multivitamin) 400-20-300 mcg tablet Discontinued 1 {tbl} PO DAILY November 27, 2021 12:00am December 14, 2024 11:02am Start: 11-27-2021 take 1 tablet by elizabeth once daily Vovyxqdy-Bpp-Slqhk-Vit K-Lycop (One-A-Da y Men's Multivitamin) 400-20-300 mcg tablet Active 1 TABLET PO DAILY November 27, 2021 12:00am Start: 11-27-2021 take 1 tablet by elizabeth th once daily Kyuwnniu-Tfj-Fmnxj-Vit K-Lycop (-A Men's Multivitamin) 400-20-300 mcg tablet Active 1 TABLET PO DAILY November 26, 2021 11:00pm Start: 11-27-2021 take 1 tablet by elizabeth th once Triajqbc-Hum-Wdrqw-Vit K-Lycop (-A Men's Multivitamin) 400-20-300 mcg tablet [...] disease (20 sources) Atherosclerotic heart disease of ramona coronary artery without angina pectoris; Translations: [Coronary [...] Screeningon 02-28-[address] Lung Screening [facility] Imaging Services [address] [place] [address] Lung Screening MR#: [id number] Acct: [id number] Name: JARON MIRELES Rep #: [id number] : 1955 M 69 From: Blaine Loja MD PCP: Dr. Melvin Trujillo MD Status: REG CLI Study: Low Dose CT Lung Screening Date of Exam: 02/28 Exam# [id number] Ordering Dr: Kade Novoa NP UTILITY MANAGER -C PROCEDURE: LOW DOSE CT LUNG SCREENING 02/28/2025 REASON FOR EXAM: TOBACCO ABUSUSE TECHNIQUE: Procedure Code: CTLUNGSCREEN Modality: CT Procedure: LOW DOSE CT LUNG SCREENING Coronal and Sagittal reconstruction series were provided. One or more dose reduction techniques were used (e.g., Automated exposure control, adjustment of the mA and/or kV according to patient size, use of iterative reconstruction technique). REFERENCE LINK: Relationship Science Lung-RADS RADIATION DOSE SUMMARY: CTDlvol: 3.0 mGy [...] SCREENING LDCT. Other Significant Findings: Reading Location: [facility] CC: Kade ROMANO NP-Alondra Irwinorrmandy; Dr. Melvin Trujillo MD Guest Room Attendant: Signed Normal [facility] PSA,Total - Annual Screenon 02-22-2025 PSA,TOT SCREEN 1.40 ng/mL Normal 0.02-4.00 [facility] Comment on above: Result Comment: This test [...] values. Performed By: #### L 501.9910 #### [facility] [address] [place], [address] Cardiology Visit Reporton Cardiology Visit Report [facility] [address] [place] [address] OFFICE VISIT Date of Service: 12/14/24 MR#: [id number] Acct: [id number] Name: JARON MIRELES Rep #: [id number] : 1955 Provider: DENISE sifuentes Age/Sex: 69/M Location: [facility] Status: Signed HPI HPI History of [...] NIBP Intake Visit Reasons: 1 Y FU Pulmonary Physical Therapist Required: No Is patient in pain?: No [...] past year?: Yes (Off of a ladder) [facility] Medical History Essential (primary) hypertension Elevated blood pressure reading in office without diagnosis of hypertension Nicotine dependence GERD (gastroesophageal reflux disease) Hyperlipidemia COPD (chronic obstructive pulmonary disease) 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 Normal [facility] CBC W/Diff, Automatedon 07-10 Absolute Lymph 2.06 X10 3/uL Normal 0.83-4.51 [facility] Comment on above: Order Comment: Order Date: 07/20/24 Order Info: 0184-1 - CBCD Performed By: #### L 500.4050, L502.0250, L100.0100 #### [facility] [address] [place], [address] Absolute Neut 6.4 X10 3/uL Normal 2.0-7.7 [facility] Comment on above: Order Comment: Order Date: 07/20/24 Order Info: 0184-1 - CBCD Performed By: #### L 500.4050, L502.0250, L100.0100 #### [facility] [address] [place], [address] Basophils/100 WBC (Bld) 0.9 % Normal 0-1 [facility] Comment on above: Order Comment: Order Date: 07/20/24 Order Info: 0184-1 - CBCD Performed By: #### L 500.4050, L502.0250, L100.0100 #### [facility] [address] [place], [address] Eosinophils/100 WBC (Bld) 2.8 % Normal 0-5 [facility] Comment on above: Order Comment: Order Date: 07/20/24 Order Info: 0184-1 - CBCD Performed By: #### L 500.4050, L502.0250, L100.0100 #### [facility] [address] [place], [address] Erythrocyte distribution width (RBC) [Ratio] 12.7 % Normal 11.6-14.6 [facility] Comment on above: Order Comment: Order Date: 07/20/24 Order Info: 0184-1 - CBCD Performed By: #### L 500.4050, L502.0250, L100.0100 #### [facility] [address] [place], [address] Hematocrit (Bld) [Volume fraction] 46.5 % Normal 40-54 [facility] Comment on above: Order Comment: Order Date: 07/20/24 Order Info: 0184-1 - CBCD Performed By: #### L 500.4050, L502.0250, L100.0100 #### [facility] [address] [place], [address] Hemoglobin (Bld) [Mass/Vol] 15.5 g/dL Normal 13.0-16.5 [facility] Comment on above: Order Comment: Order Date: 07/20/24 Order Info: 0184- - CBCD Performed By: #### L 500.4050, L502.0250, L100.0100 #### [facility] [address] [place], [address] IG% 0.700 Normal 0.0-0.9 [facility] Comment on above: Order Comment: Order Date: 07/20/24 Order Info: 018- - CBCD Result Comment: IG% - Immature Granulocytes (promyelocytes, myelocytes and metamyelocytes) > 1% indicates that a LEFT SHIFT is Present. Performed By: #### L 500.4050, L502.0250, L100.0100 #### [facility] [address] [place], [address] Lymphocytes/100 WBC (Bld) 21.2 % Normal 19-41 [facility] Comment on above: Order Comment: Order Date: 07/20/24 Order Info: 018- - CBCD Performed By: #### L 500.4050, L502.0250, L100.0100 #### [facility] [address] [place], [address] MCH (RBC) [Entitic mass] 32.2 pg High 27.0-32.0 [facility] Comment on above: Order Comment: Order Date: 07/20/24 Order Info: 0184- - CBCD Performed By: #### L 500.4050, L502.0250, L100.0100 #### [facility] [address] [place], [address] MCHC (RBC) [Mass/Vol] 33.3 g/dL Normal 32-36 [facility] Comment on above: Order Comment: Order Date: 07/20/24 Order Info: 0184- - CBCD Performed By: #### L 500.4050, L502.0250, L100.0100 #### [facility] [address] [place], [address] MCV (RBC) [Entitic vol] 96.5 fL High 80-94 [facility] Comment on above: Order Comment: Order Date: 07/20/24 Order Info: 0184-1 - CBCD Performed By: #### L 500.4050, L502.0250, L100.0100 #### [facility] [address] [place], [address] Monocytes/100 WBC (Bld) 8.7 % Normal 0-10 [facility] Comment on above: Order Comment: Order Date: 07/20/24 Order Info: 0184-1 - CBCD Performed By: #### L 500.4050, L502.0250, L100.0100 #### [facility] [address] [place], [address] Neutrophils/100 WBC (Bld) 65.7 % Normal 47-70 [facility] Comment on above: Order Comment: Order Date: 07/20/24 Order Info: 0184-1 - CBCD Performed By: #### L 500.4050, L502.0250, L100.0100 #### [facility] [address] [place], [address] Nucleated RBC (Bld) [#/Vol] 0 10*3/uL Normal 0-5 [facility] Comment on above: Order Comment: Order Date: 07/20/24 Order Info: 0184-1 - CBCD Performed By: #### L 500.4050, L502.0250, L100.0100 #### [facility] [address] [place], [address] Platelet mean volume (Bld) [Entitic vol] 10.8 fL Normal 6.2-12.0 [facility] Comment on above: Order Comment: Order Date: 07/20/24 Order Info: 0184-1 - CBCD Performed By: #### L 500.4050, L502.0250, L100.0100 #### [facility] [address] [place], [address] Platelets (Bld) [#/Vol] 239 10*3/uL Normal 150-450 [facility] Comment on above: Order Comment: Order Date: 07/20/24 Order Info: 0184-1 - CBCD Performed By: #### L 500.4050, L502.0250, L100.0100 #### [facility] [address] [place], [address] RBC (Bld) [#/Vol] 4.82 10*6/uL Normal 4.6-6.2 [facility] Comment on above: Order Comment: Order Date: 07/20/24 Order Info: 0184- - CBCD Performed By: #### L 500.4050, L502.0250, L100.0100 #### [facility] [address] [place], [address] RDW SD 44.9 fl High 35.1-43.9 [facility] Comment on above: Order Comment: Order Date: 07/20/24 Order Info: 0184- - CBCD Performed By: #### L 500.4050, L502.0250, L100.0100 #### [facility] [address] [place], [address] WBC (Bld) [#/Vol] 9.7 10*3/uL Normal 4.4-11.0 [facility] Comment on above: Order Comment: Order Date: 07/20/24 Order Info: 0184-1 - CBCD Performed By: #### L 500.4050, L502.0250, L100.0100 #### [facility] [address] [place], [address] Comprehensive Metabolic Prof ilon 07-20-2024 Albumin [Mass/Vol] 4.6 g/dL Normal 3.2-5.0 [facility] Comment on above: Order Comment: Order Date: 07/20/24 Order Info: 0786-1 - CMP Performed By: #### L 500.4050, L502.0250, L100.0100 #### [facility] [address] [place], [address] Albumin/Globulin [Mass ratio] 1.6 {ratio} Normal 0.9-2.4 [facility] Comment on above: Order Comment: Order Date: 07/20/24 Order Info: 0786-1 - CMP Performed By: #### L 500.4050, L502.0250, L100.0100 #### [facility] [address] [place], [address] ALK P 75 U/L Normal 45-117 [facility] Comment on above: Order Comment: Order Date: 07/20/24 Order Info: 0786-1 - CMP Performed By: #### L 500.4050, L502.0250, L100.0100 #### [facility] [address] [place], [address] ALT [Catalytic activity/Vol] 26 U/L Normal 16-61 [facility] Comment on above: Order Comment: Order Date: 07/20/24 Order Info: 0786-1 - CMP Performed By: #### L 500.4050, L502.0250, L100.0100 #### [facility] [address] [place], [address] AST [Catalytic activity/Vol] 19 U/L Normal 15-37 [facility] Comment on above: Order Comment: Order Date: 07/20/24 Order Info: 0786-1 - CMP Performed By: #### L 500.4050, L502.0250, L100.0100 #### [facility] [address] [place], [address] Bilirubin [Mass/Vol] 0.50 mg/dL Normal 0.20-1.00 [facility] Comment on above: Order Comment: Order Date: 07/20/24 Order Info: 0786-1 - CMP Result Comment: For patients on eltrombopag therapy, use of Dimension [place] TBIL is not recommended. Performed By: #### L 500.4050, L502.0250, L100.0100 #### [facility] [address] [place], [address] BUN/CRE 17.6 RATIO Normal 10-20 [facility] Comment on above: Order Comment: Order Date: 07/20/24 Order Info: 0786-1 - CMP Performed By: #### L 500.4050, L502.0250, L100.0100 #### [facility] [address] [place], [address] CA,Total 9.4 mg/dL Normal 8.5-10.1 [facility] Comment on above: Order Comment: Order Date: 07/20/24 Order Info: 0786-1 - CMP Performed By: #### L 500.4050, L502.0250, L100.0100 #### [facility] [address] [place], [address] Chloride [Moles/Vol] 103 mmol/L Normal 98-107 [facility] Comment on above: Order Comment: Order Date: 07/20/24 Order Info: 0786-1 - CMP Performed By: #### L 500.4050, L502.0250, L100.0100 #### [facility] [address] [place], [address] CO2 [Moles/Vol] 28.0 mmol/L Normal 21.0-32.0 [facility] Comment on above: Order Comment: Order Date: 07/20/24 Order Info: 0786-1 - CMP Performed By: #### L 500.4050, L502.0250, L100.0100 #### [facility] [address] [place], [address] Creatinine [Mass/Vol] 1.02 mg/dL Normal 0.70-1.30 [facility] Comment on above: Order Comment: Order Date: 07/20/24 Order Info: 0786-1 - CMP Result Comment: The validity of the calculated GFR GFRAA in patients over 70 years has not been determined. Clinical correlation is essential. Performed By: #### L 500.4050, L502.0250, L100.0100 #### [facility] [address] [place], [address] EST GFR - AA 93 mL/min Normal >60 [facility] Comment on above: Order Comment: Order Date: 07/20/24 Order Info: 0786-1 - CMP Result Comment: Afri can Micronesian GFR Calc Performed By: #### L 500.4050, L502.0250, L100.0100 #### [facility] [address] [place], [address] GAP 8 Normal 5-15 [facility] Comment on above: Order Comment: Order Date: 07/20/24 Order Info: 0786-1 - CMP Performed By: #### L 500.4050, L502.0250, L100.0100 #### [facility] [address] [place], [address] GFR/1.73 sq M.predicted among non-blacks MDRD (S/P/Bld) [Vol rate/Area] 77 mL/min/{1.73_m2} Normal >60 [facility] Comment on above: Order Comment: Order Date: 07/20/24 Order Info: 0786-1 - CMP Result Comment: Non- GFR Calc Performed By: #### L 500.4050, L502.0250, L100.0100 #### [facility] [address] [place], [address] Globulin (S) [Mass/Vol] 2.9 g/dL Normal 2.2-4.2 [facility] Comment on above: Order Comment: Order Date: 07/20/24 Order Info: 0786-1 - CMP Performed By: #### L 500.4050, L502.0250, L100.0100 #### [facility] [address] [place], [address] Glucose [Mass/Vol] 90 mg/dL Normal 74-106 [facility] Comment on above: Order Comment: Order Date: 07/20/24 Order Info: 0786-1 - CMP Performed By: #### L 500.4050, L502.0250, L100.0100 #### [facility] [address] [place], [address] Potassium [Moles/Vol] 4.3 mmol/L Normal 3.5-5.1 [facility] Comment on above: Order Comment: Order Date: 07/20/24 Order Info: 0786-1 - CMP Performed By: #### L 500.4050, L502.0250, L100.0100 #### [facility] [address] [place], [address] Sodium [Moles/Vol] 138 mmol/L Normal 136-145 [facility] Comment on above: Order Comment: Order Date: 07/20/24 Order Info: 0786-1 - CMP Performed By: #### L 500.4050, L502.0250, L100.0100 #### [facility] [address] [place], [address] T PROT 7.5 g/dL Normal 6.4-8.2 [facility] Comment on above: Order Comment: Order Date: 07/20/24 Order Info: 0786-1 - CMP Performed By: #### L 500.4050, L502.0250, L100.0100 #### [facility] [address] [place], [address] Urea nitrogen [Mass/Vol] 18 mg/dL Normal 7-18 [facility] Comment on above: Order Comment: Order Date: 07/20/24 Order Info: 0786-1 - CMP Performed By: #### L 500.4050, L502.0250, L100.0100 #### [facility] [address] [place], [address] Microalb:Creat Ratio,Random URon 07-20-2024 Creatinine [Mass/Vol] 64.30 mg/dL Normal NO RAN GE EST. [facility] Comment on above: Order Comment: Order Date: 07/20/24 Order Info: 0779-1 - MIACRE Performed By: #### L 500.4050, L502.0250, L100.0100 #### [facility] [address] [place], [address] MALB:CRE 8.0 mg/g CRE Normal <30 mg/g CRE [facility] Comment on above: Order Comment: Order Date: 07/20/24 Order Info: 0779-1 - MIACRE Performed By: #### L 500.4050, L502.0250, L100.0100 #### [facility] [address] [place], [address] MICROALBUMIN,UR 5.2 mg/L Normal NO RANGE EST. [facility] Comment on above: Order Comment: Order Date: 07/20/24 Order Info: 0779-1 - MIACRE Performed By: #### L 500.4050, L502.0250, L100.0100 #### [facility] [address] [place], [address] Absolute lymphocyte countOrd ered By: Melvin Trujillo on 09-23-2023 Lymphocytes Auto (Unsp spec) [#/Vol] 1.91 10*3/uL 0.83-4.51 [facility] Automated lymphocyte count a s percentage of total leukocytesOrdered By: Melvin Trujillo on 09-23-2023 Lymphocytes/100 WBC Auto (Unsp spec) 20.1 % 19-41 [facility] Basophil percentageOrdered B y: Melvin Trujillo on 09-23-2023 Basophils/100 WBC (Bld) 0.8 % 0-1 [facility] Bilirubin [Mass/Vol] 0.80 mg/dL 0.20-1.00 [facility] Comment on above: For patients on eltr ombopag therapy, use of Dimension [place] TBIL is not recommended. Chloride [Moles/Vol] 107 mmol/L 98-107 [facility] Cholesterol [Mass/Vol] 138 mg/dL <200 [facility] Comment on above: <200 mg/dL Desirable 200-240 mg/dL Borderline >240 mg/dL High Risk Eosinophils/100 WBC (Bld) 2.2 % 0-5 [facility] Glucose [Mass/Vol] 114 mg/dL 74-106 [facility] Comment on above: Fasting Glucose resu lt from 100 to 125 mg/dL suggests IMPAIRED HOMEOSTASIS per A.D.A. criteria. Hemoglobin (Bld) [Mass/Vol] 15.1 g/dL 13.0-16.5 [facility] Monocytes/100 WBC (Bld) 7.3 % 0-10 [facility] Neutrophils (Bld) [#/Vol] 6.5 10*3/uL 2.0-7.7 [facility] Neutrophils/100 WBC (Bld) 68.9 % 47-70 [facility] Potassium [Moles/Vol] 5.2 mmol/L 3.5-5.1 [facility] Protein [Mass/Vol] 7.2 g/dL 6.4-8.2 [facility] Sodium [Moles/Vol] 138 mmol/L 136-145 [facility] Triglyceride [Mass/Vol] 84 mg/dL <199 [facility] Comment on above: The drugs N-Acetylcy steine and Metamizole may falsely depress this assay.Serum Triglycerides Reference Interval Normal <150 mg/dL Borderline high 150 - 199 mg/dL High 200 - 499 mg/dL Very High > or = 500 mg/dL WBC (Bld) [#/Vol] 9.5 10*3/uL 4.4-11.0 [facility] Determination of erythrocyte mean corpuscular volume (MCV)Ordered By: Melvin Trujillo on 09-23-2023 MCV (RBC) [Entitic vol] 96.5 fL 80-94 [facility] Erythrocyte distribution wid th ratioOrdered By: Melvin Trujillo on 09-23-2023 Erythrocyte distribution width (RBC) [Ratio] 14.0 % 11.6-14.6 [facility] Erythrocyte distribution wid th standard deviationOrdered By: Melvin Trujillo on 09-23-2023 Erythrocyte distribution width (RBC) [Entitic vol] 49.4 fL 35.1-43.9 [facility] Hematocrit Auto (Bld) [Volum e fraction]Ordered By: Melvin Trujillo on 09-23-2023 Hematocrit (Bld) [Volume fraction] 44.3 % 40-54 [facility] Immature granulocytes/100 WB C Auto (Bld)Ordered By: Melvin Trujillo on 09-23-2023 Immature granulocytes/100 WBC (Bld) 0.700 % 0.0-0.9 [facility] Comment on above: IG% - Immature Granu locytes (promyelocytes, myelocytes and metamyelocytes) > 1% indicates that a LEFT SHIFT is Present. Laboratory - Chemistry and C hemistry - challengeOrdered By: Melvin Trujillo on 09-23-2023 Albumin/Globulin [Mass ratio] 1.2 {ratio} 0.9-2.4 [facility] ALP [Catalytic activity/Vol] 65 U/L 45-117 [facility] ALT [Catalytic activity/Vol] 29 U/L 16-61 [facility] Cholesterol in HDL [Mass/Vol] 59 mg/dL >40 [facility] Comment on above: The drugs N-Acetylcy steine and Metamizole may falsely depress this assay. Reference Range HDL <40 mg/dL Low HDL Cholesterol HDL >or= 60 mg/dL High HDL Cholesterol Cholesterol in LDL [Mass/Vol] 62 mg/dL 0-130 [facility] CO2 [Moles/Vol] 30.0 mmol/L 21.0-32.0 [facility] Globulin (S) [Mass/Vol] 3.2 g/dL 2.2-4.2 [facility] Urea nitrogen/Creatinine [Mass ratio] 15.4 mg/mg 10-20 [facility] - Hematology and Cell countsOrdered By: Melvin Trujillo on 09-23-2023 MCH (RBC) [Entitic mass] 32.9 pg 27.0-32.0 [facility] MCHC (RBC) [Mass/Vol] 34.1 g/dL 32-36 [facility] Nucleated RBC/100 WBC (Bld) [Ratio] 0 % 0-5 [facility] Platelet mean volume (Bld) [Entitic vol] 10.5 fL 6.2-12.0 [facility] Platelets (Bld) [#/Vol] 268 10*3/uL 150-450 [facility] No Panel InformationOrdered By: Melvin Trujillo on 09-23-2023 Estimated GFR (MDRD) Amer 79 mL/min >60 [facility] Comment on above: GFR Calc Estimated GFR (MDRD) Non-Af Amer 66 mL/min >60 [facility] Comment on above: Non- GFR Calc Urine Microalbumin/Creatinin e Ratio 11.5 mg/g CRE <30 [facility] VLDL Cholesterol 17 mg/dL 5-40 [facility] RBC Auto (Bld) [#/Vol]Ordere d By: Melvin Trujillo on 09-23-2023 RBC (Bld) [#/Vol] 4.59 10*6/uL 4.6-6.2 [facility] Serum or plasma calcium todd urement (mass/volume)Ordered By: Melvin Trujillo on 09-23-2023 Calcium [Mass/Vol] 9.2 mg/dL 8.5-10.1 [facility] Serum or plasma creatinine m easurement (mass/volume)Ordered By: Melvin Trujillo on 09-23-2023 Creatinine [Mass/Vol] 1.17 mg/dL 0.70-1.30 [facility] Comment on above: The validity of the calculated GFR & GFRAA in patients over 70 years has not been determined. Clinical correlation is essential. Serum or plasma urea nitroge n measurement (mass/volume)Ordered By: Melvin Trujillo on 09-23-2023 Urea nitrogen [Mass/Vol] 18 mg/dL 7-18 [facility] Thin prep Papanicolaou smear with manual screeningOrdered By: Melvin Trujillo on 09-23-2023 Thin prep Papanicolaou smear with manual screening 4.0 g/dL 3.2-5.0 [facility] Thin prep Papanicolaou smear with manual screening 20 U/L 15-37 [facility] Thin prep Papanicolaou smear with manual screening 1 5-15 [facility] Thin prep Papanicolaou smear with manual screening 8.7 mg/L NO RANGE EST. [facility] Urine creatinine measurement (mass/volume)Ordered By: Melvin Trujillo on 09-23-2023 Creatinine (U) [Mass/Vol] 75.40 mg/dL NO RANGE EST. [facility] Absolute lymphocyte countOrd ered By: Melvin Trujillo on 01-21-2023 Lymphocytes Auto (Unsp spec) [#/Vol] 1.69 10*3/uL 0.83-4.51 [facility] Basophil percentageOrdered B y: Melvin Trujillo on 01-21-2023 Basophil percentage 2.9 mg/dL 2.5-4.9 [facility] Basophils/100 WBC (Bld) 0.8 % 0-1 [facility] Bilirubin [Mass/Vol] 0.40 mg/dL 0.20-1.00 [facility] Comment on above: For patients on eltr ombopag therapy, use of Dimension [place] TBIL is not recommended. Chloride [Moles/Vol] 104 mmol/L 98-107 [facility] Eosinophils/100 WBC (Bld) 2.6 % 0-5 [facility] Glucose [Mass/Vol] 91 mg/dL 74-106 [facility] Neutrophils (Bld) [#/Vol] 5.1 10*3/uL 2.0-7.7 [facility] Neutrophils/100 WBC (Bld) 65.8 % 47-70 [facility] Potassium [Moles/Vol] 4.9 mmol/L 3.5-5.1 [facility] Protein [Mass/Vol] 7.2 g/dL 6.4-8.2 [facility] Sodium [Moles/Vol] 139 mmol/L 136-145 [facility] WBC (Bld) [#/Vol] 7.7 10*3/uL 4.4-11.0 [facility] Blood erythrocytes count (nu mber/volume)Ordered By: Melvin Trujillo on 01-21-2023 RBC (Bld) [#/Vol] 4.43 10*6/uL 4.6-6.2 [facility] Blood hemoglobin measurement (mass/volume)Ordered By: Melvin Trujillo on 01-21-2023 Hemoglobin (Bld) [Mass/Vol] 14.7 g/dL 13.0-16.5 [facility] Blood lymphocytes/100 leukoc ytesOrdered By: Melvin Trujillo on 01-21-2023 Lymphocytes/100 WBC (Bld) 21.9 % 19-41 [facility] Blood monocytes/100 leukocyt esOrdered By: Melvin Trujillo on 01-21-2023 Monocytes/100 WBC (Bld) 8.5 % 0-10 [facility] Blood platelet mean volumeOr dered By: Melvin Trujillo on 01-21-2023 Platelet mean volume (Bld) [Entitic vol] 10.5 fL 6.2-12.0 [facility] Determination of erythrocyte mean corpuscular volume (MCV)Ordered By: Melvin Trujillo on 01-21-2023 MCV (RBC) [Entitic vol] 98.2 fL 80-94 [facility] Hematocrit Auto (Bld) [Volum e fraction]Ordered By: Melvin Trujillo on 01-21-2023 Hematocrit (Bld) [Volume fraction] 43.5 % 40-54 [facility] Laboratory - Chemistry and C hemistry - challengeOrdered By: Melvin Trujillo on 01-21-2023 ALP [Catalytic activity/Vol] 69 U/L 45-117 [facility] ALT [Catalytic activity/Vol] 26 U/L 16-61 [facility] CO2 [Moles/Vol] 30.0 mmol/L 21.0-32.0 [facility] Globulin (S) [Mass/Vol] 3.3 g/dL 2.2-4.2 [facility] Magnesium [Mass/Vol] 2.3 mg/dL 1.6-2.6 [facility] Urea nitrogen/Creatinine [Mass ratio] 15.8 mg/mg 10-20 [facility] Laboratory - Hematology and Cell countsOrdered By: Melvin Trujillo on 01-21-2023 Erythrocyte distribution width (RBC) [Entitic vol] 47.8 fL 35.1-43.9 [facility] Erythrocyte distribution width (RBC) [Ratio] 13.2 % 11.6-14.6 [facility] Immature granulocytes/100 WBC (Bld) 0.400 % 0.0-0.9 [facility] Comment on above: IG% - Immature Granu locytes (promyelocytes, myelocytes and metamyelocytes) > 1% indicates that a LEFT SHIFT is Present. MCH (RBC) [Entitic mass] 33.2 pg 27.0-32.0 [facility] Nucleated RBC/100 WBC (Bld) [Ratio] 0 % 0-5 [facility] MCHC Auto (RBC) [Mass/Vol]Or dered By: Melvin Trujillo on 01-21-2023 MCHC (RBC) [Mass/Vol] 33.8 g/dL 32-36 [facility] No Panel InformationOrdered By: Melvin Trujillo on 01-21-2023 Estimated GFR (MDRD) Amer 77 mL/min >60 [facility] Comment on above: GFR Calc Estimated GFR (MDRD) Non-Af Amer 64 mL/min >60 [facility] Comment on above: Non- GFR Calc Thyroid Stimulating Hormone (TSH) 2.18 uIU/mL 0.358-3.74 [facility] Platelets bldOrdered By: Lizabeth Trujillo on 01-21-2023 Platelets (Bld) [#/Vol] 245 10*3/uL 150-450 [facility] Serum or plasma albumin todd urement (mass/volume)Ordered By: Melvin Trujillo on 01-21-2023 Albumin [Mass/Vol] 3.9 g/dL 3.2-5.0 [facility] Serum or plasma albumin/glob ulin mass ratioOrdered By: Melvin Trujillo on 01-21-2023 Albumin/Globulin [Mass ratio] 1.2 {ratio} 0.9-2.4 [facility] Serum or plasma calcium todd urement (mass/volume)Ordered By: Melvin Trujillo on 01-21-2023 Calcium [Mass/Vol] 8.8 mg/dL 8.5-10.1 [facility] Serum or plasma creatinine m easurement (mass/volume)Ordered By: Melvin Trujillo on 01-21-2023 Creatinine [Mass/Vol] 1.20 mg/dL 0.70-1.30 [facility] Comment on above: The validity of the calculated GFR & GFRAA in patients over 70 years has not been determined. Clinical correlation is essential. Serum or plasma urea nitroge n measurement (mass/volume)Ordered By: Melvin Trujillo on 01-21-2023 Urea nitrogen [Mass/Vol] 19 mg/dL 7-18 [facility] Thin prep Papanicolaou smear with manual screeningOrdered By: Melvin Trujillo on 01-21-2023 Thin prep Papanicolaou smear with manual screening 18 U/L 15-37 [facility] Thin prep Papanicolaou smear with manual screening 5 - [facility] SURGICAL PATHOLOGY RESULTSon 11-13-2022 Pathology Report Name JARON MIRELES Pathologist: BRIAN MCGRATH M.D. Date of Procedure: 11/06/2022 Date Received: 11/06/2022 Date Reported 11/13/2022 Submitting Physician: VINAYAK EDMONDS DO Location: [facility] Copy To/Referring/Attendin g: MELVIN TRUJILLO MD Other External # FINAL DIAGNOSIS RECTOSIGMOID COLON, POLYP, POLYPECTOMY: -- HYPERPLASTIC POLYP. Electronically Signed Out By BRIAN MCGRATH M.D./MAKENZIE By the signature on this report, the individual or group listed as making the Final Interpretation/Diagno sis certifies that they have reviewed this case. Diagnostic interpretation performed at [place] [address] Clinical History: Clinical Diagnosis History COLONOSCOPY Specimens Submitted As: A: RECTO-SIGMOID JUNCTION POLYP Gross Description: Received in formalin, labeled with the patient's name and hospital number and rectosigmoid polyp, is a fragment of engel, soft tissue measuring 0.4 x 0.3 x 0.2 cm. The specimen is submitted in toto in one cassette. MKM mkm/11/08/2022 [facility] Department of Pathology [address] [place] [address] Colonoscopyon 11-06-2022 Colonoscopy PATIENTNAME Patient Name: Jaron Mireles EXAMDATE Procedure Date: 11/06/2022 2:21 PM PATIENTID PATIENTACCOUNTNUM PATIENTDOB Date of : 1955 ADMITTYPE Admit Type: Outpatient PATIENTROOM Site: [facility] End[facility] Proc RM 1 ETHNICITY Ethnicity: Not or RACE Race: White PROVDR Attending MD: Vinayak Edmonds DO, [id number] ENDOPROCEDURENAME Procedure: Colonoscopy INDICATION Indications: Surveillance: Personal history of colonic polyps (unknown histology) on last colonoscopy more than 5 years ago PRIMARYPROVIDER Providers: Vinayak Edmonds DO (Doctor), Damaris Ferrari RN (Nurse), Joel Sanchez, Ironer EDREFPROVIDER Referring: Melvin Trujillo MD CURRENT_MEDS Medicines: [...] results. CPT_CODES Procedure Code(s): --- Professional --- 15476, Colonoscopy, flexible; with biopsy, single or multiple 81703, Moderate sedation; each additional 15 minutes intraservice time G0500, Moderate sedation services provided by the same physician or other qualified health child daycare worker performing a gastrointestinal endoscopic service that sedation supports, requiring the presence of an independent trained observer to assist in the monitoring of the patient's level of consciousness and physiological status; initial 15 minutes of intra-service time; patient age 5 years or older (additional (more content not included)... [facility] Vinayak Edmonds DO - 12/02/2022 Patient Name: Jaron Mireles Procedure Date: 11/06/2022 2:21 PM Date of : 1955 Admit Type: Outpatient Site: [facility] 1 Ethnicity: Not or Race: White Attending MD: Vinayak Edmonds DO, [id number] Procedure: Colonoscopy Indications: Surveillance: Personal history of colonic polyps (unknown histology) on last colonoscopy more than 5 years ago Providers: Vinayak Edmonds DO (Doctor), Damaris Ferrari RN (Nurse), Joel Sanchez, Ironer Referring: Melvin Trujillo MD Medicines: Midazolam 7.5 [...] pathology results. Procedure Code(s): --- Professional --- 85594, Colonoscopy, flexible; with biopsy, single or multiple 76063, Moderate sedation; each additional 15 minutes intraservice time G0500, Moderate sedation services provided by the same physician or other qualified health child daycare worker performing a gastrointestinal endoscopic service that sedation supports, requiring the presence of an independent trained observer to assist in the monitoring of the patient's level of consciousness and physiological status; initial 15 minutes of intra-service time; patient age 5 years or older (additional time may be reported with [address]1847, as appropriate) Diagnosis Code(s): --- Professional --- Z12.11, Encounter for screening for malignant neoplasm of colon Z86.010, Personal history of colonic polyps (more content not included)... [facility] Work Phone: Radiology Study observation (narrative) [facility] Work Phone: ColonoscopyOrdered By: Vinayak Edmonds on 11-06-2022 [facility] Work Phone: [facility] Surgical Pathology Depar tmenton 11-06-2022 [facility] Surgical Pathology Department Name JARON MIRELESCandelaria Pathologist: BRIAN MCGRATH M.D. Date of Procedure: 11/06/2022 Date Received: 11/06/2022 Date Reported 11/13/2022 Submitting Physician: VINAYAK EDMONDS DO Location: [facility] Copy To/Referring/Attendin g: MELVIN TRUJILLO MD Other External # FINAL DIAGNOSIS RECTOSIGMOID COLON, POLYP, POLYPECTOMY: -- HYPERPLASTIC POLYP. Electronically Signed Out By BRIAN MCGRATH M.D./MAKENZIE By the signature on this report, the individual or group listed as making the Final Interpretation/Diagno sis certifies that they have reviewed this case. Diagnostic interpretation performed at [address] [place] [address] Clinical History: Clinical Diagnosis History COLONOSCOPY Specimens Submitted As: A: RECTO-SIGMOID JUNCTION POLYP Gross Description: Received in formalin, labeled with the patient's name and hospital number and rectosigmoid polyp, is a fragment of engel, soft tissue measuring 0.4 x 0.3 x 0.2 cm. The specimen is submitted in toto in one cassette. MKM mkm/11/08/2022 [facility] Department of Pathology [id number] [place] [address] [facility] Comment on above: Performed By: #### [facility] #### [facility] Surgical Pathology Department [address] [place] [address] Absolute lymphocyte countOrd ered By: Dr. Trujillo on 10-11-2022 Lymphocytes Auto (Unsp spec) [#/Vol] 2.30 10*3/uL 0.83-4.51 [facility] Basophil percentageOrdered B y: Chris Pineda on 10-11-2022 Cholesterol [Mass/Vol] 128 mg/dL <200 [facility] Comment on above: <200 mg/dL Desirable 200-240 mg/dL Borderline >240 mg/dL High Risk Triglyceride [Mass/Vol] 73 mg/dL <199 [facility] Comment on above: The drugs N-Acetylcy steine and Metamizole may falsely depress this assay.Serum Triglycerides Reference Interval Normal <150 mg/dL Borderline high 150 - 199 mg/dL High 200 - 499 mg/dL Very High > or = 500 mg/dL Basophil percentageOrdered B y: Dr. Trujillo on 10-11-2022 Basophils/100 WBC (Bld) 1.2 % 0-1 [facility] Bilirubin [Mass/Vol] 0.60 mg/dL 0.20-1.00 [facility] Comment on above: For patients on eltr ombopag therapy, use of Dim[place] TBIL is not recommended. Chloride [Moles/Vol] 105 mmol/L 98-107 [facility] Eosinophils/100 WBC (Bld) 2.6 % 0-5 [facility] Glucose [Mass/Vol] 98 mg/dL 74-106 [facility] Neutrophils (Bld) [#/Vol] 4.7 10*3/uL 2.0-7.7 [facility] Neutrophils/100 WBC (Bld) 58.8 % 47-70 [facility] Potassium [Moles/Vol] 4.5 mmol/L 3.5-5.1 [facility] Protein [Mass/Vol] 7.1 g/dL 6.4-8.2 [facility] Sodium [Moles/Vol] 140 mmol/L 136-145 [facility] WBC (Bld) [#/Vol] 8.0 10*3/uL 4.4-11.0 [facility] Blood erythrocytes count (nu mber/volume)Ordered By: Dr. Trujillo on 10-11-2022 RBC (Bld) [#/Vol] 4.72 10*6/uL 4.6-6.2 [facility] Blood hemoglobin measurement (mass/volume)Ordered By: Dr. Trujillo on 10-11-2022 Hemoglobin (Bld) [Mass/Vol] 15.2 g/dL 13.0-16.5 [facility] Blood lymphocytes/100 leukoc ytesOrdered By: Dr. Trujillo on 10-11-2022 Lymphocytes/100 WBC (Bld) 28.6 % 19-41 [facility] Blood monocytes/100 leukocyt esOrdered By: Dr. Trujillo on 10-11-2022 Monocytes/100 WBC (Bld) 7.8 % 0-10 [facility] Blood platelet mean volumeOr dered By: Dr. Trujillo on 10-11-2022 Platelet mean volume (Bld) [Entitic vol] 10.1 fL 6.2-12.0 [facility] Determination of erythrocyte mean corpuscular volume (MCV)Ordered By: Dr. Trujillo on 10-11-2022 MCV (RBC) [Entitic vol] 96.2 fL 80-94 [facility] Direct bilirubinOrdered By: Dr. Trujillo on 10-11-2022 Bilirubin.direct [Mass/Vol] 0.19 mg/dL 0.00-0.30 [facility] Hematocrit Auto (Bld) [Volum e fraction]Ordered By: Dr. Trujillo on 10-11-2022 Hematocrit (Bld) [Volume fraction] 45.4 % 40-54 [facility] Laboratory - Chemistry and C hemistry - challengeOrdered By: Dr. Trujillo on 10-11-2022 ALP [Catalytic activity/Vol] 74 U/L 45-117 [facility] ALT [Catalytic activity/Vol] 21 U/L 16-61 [facility] CO2 [Moles/Vol] 29.0 mmol/L 21.0-32.0 [facility] Free T4 [Mass/Vol] 0.88 ng/dL 0.76-1.46 [facility] Globulin (S) [Mass/Vol] 3.1 g/dL 2.2-4.2 [facility] Urea nitrogen/Creatinine [Mass ratio] 18.8 mg/mg 10-20 [facility] Laboratory - Hematology and Cell countsOrdered By: Dr. Trujillo on 10-11-2022 Erythrocyte distribution width (RBC) [Entitic vol] 45.3 fL 35.1-43.9 [facility] Erythrocyte distribution width (RBC) [Ratio] 12.7 % 11.6-14.6 [facility] Immature granulocytes/100 WBC (Bld) 1.000 % 0.0-0.9 [facility] Comment on above: IG% - Immature Granu locytes (promyelocytes, myelocytes and metamyelocytes) > 1% indicates that a LEFT SHIFT is Present. MCH (RBC) [Entitic mass] 32.2 pg 27.0-32.0 [facility] Nucleated RBC/100 WBC (Bld) [Ratio] 0 % 0-5 [facility] MCHC Auto (RBC) [Mass/Vol]Or dered By: Dr. Trujillo on 10-11-2022 MCHC (RBC) [Mass/Vol] 33.5 g/dL 32-36 [facility] No Panel InformationOrdered By: Dr. Trujillo on 10-11-2022 Anti-Nuclear Antibody Screen Negative Negative [facility] Comment on above: Performed at: [address] [id number] Director: Baldo Jauregui PhD, Phone: [phone] Estimated GFR (MDRD) Amer 94 mL/min >60 [facility] Comment on above: GFR Calc Estimated GFR (MDRD) Non-Af Amer 78 mL/min >60 [facility] Comment on above: Non- GFR Calc Thyroid Stimulating Hormone (TSH) 2.28 uIU/mL 0.358-3.74 [facility] Platelets bldOrdered By: Dr. Trujillo on 10-11-2022 Platelets (Bld) [#/Vol] 249 10*3/uL 150-450 [facility] Serum or plasma albumin todd urement (mass/volume)Ordered By: Dr. Trujillo on 10-11-2022 Albumin [Mass/Vol] 4.0 g/dL 3.2-5.0 [facility] Serum or plasma albumin/glob ulin mass ratioOrdered By: Dr. Trujillo on 10-11-2022 Albumin/Globulin [Mass ratio] 1.3 {ratio} 0.9-2.4 [facility] Serum or plasma calcium todd urement (mass/volume)Ordered By: Dr. Trujillo on 10-11-2022 Calcium [Mass/Vol] 9.2 mg/dL 8.5-10.1 [facility] Serum or plasma cholesterol in HDL measurement (mass/volume)Ordered By: Chris Pineda on 10-11-2022 Cholesterol in HDL [Mass/Vol] 51 mg/dL >40 [facility] Comment on above: The drugs N-Acetylcy steine and Metamizole may falsely depress this assay. Reference Range HDL <40 mg/dL Low HDL Cholesterol HDL >or= 60 mg/dL High HDL Cholesterol Serum or plasma cholesterol in VLDL measurement (mass/volume)Ordered By: Chris Pineda on 10-11-2022 Cholesterol in VLDL [Mass/Vol] 15 mg/dL 5-40 [facility] Serum or plasma creatinine m easurement (mass/volume)Ordered By: Dr. Trujillo on 10-11-2022 Creatinine [Mass/Vol] 1.01 mg/dL 0.70-1.30 [facility] Comment on above: The validity of the calculated GFR & GFRAA in patients over 70 years has not been determined. Clinical correlation is essential. Serum or plasma low density lipoprotein (LDL) cholesterol measurement (mass/volume)Ordered By: Chris Pineda on 10-11-2022 Cholesterol in LDL [Mass/Vol] 62 mg/dL 0-130 [facility] Serum or plasma urea nitroge n measurement (mass/volume)Ordered By: Dr. Trujillo on 10-11-2022 Urea nitrogen [Mass/Vol] 19 mg/dL 7-18 [facility] Thin prep Papanicolaou smear with manual screeningOrdered By: Dr. Trujillo on 10-11-2022 Thin prep Papanicolaou smear with manual screening 14 U/L 15-37 [facility] Thin prep Papanicolaou smear with manual screening 6 5-15 [facility] No Panel InformationOrdered By: Dr. Valladares on 07-15-2022 Prostate Specific Antigen Screen 1.72 ng/mL 0.00-4.00 [facility] Comment on above: This test was perfor med using the TPSA assay method for the2 Minutes chemistry system. Values obtained with differentassay methods cannot be used interchangably.When changing PSA assays in the course of monitoring apatient, additional sequential testing should be carriedout to confirm baseline values. Absolute lymphocyte countOrd ered By: Dr. Azevedo on 05-16-2022 Lymphocytes Auto (Unsp spec) [#/Vol] 2.24 10*3/uL 0.83-4.51 [facility] Basophil percentageOrdered B y: Dr. Azevedo on 05-16-2022 Basophils/100 WBC (Bld) 0.8 % 0-1 [facility] Chloride [Moles/Vol] 107 mmol/L 98-107 [facility] Eosinophils/100 WBC (Bld) 3.2 % 0-5 [facility] Glucose [Mass/Vol] 100 mg/dL 74-106 [facility] Comment on above: Fasting Glucose resu lt from 100 to 125 mg/dL suggests IMPAIRED HOMEOSTASIS per A.D.A. criteria. Neutrophils (Bld) [#/Vol] 6.2 10*3/uL 2.0-7.7 [facility] Neutrophils/100 WBC (Bld) 64.4 % 47-70 [facility] Potassium [Moles/Vol] 4.2 mmol/L 3.5-5.1 [facility] Sodium [Moles/Vol] 141 mmol/L 136-145 [facility] WBC (Bld) [#/Vol] 9.6 10*3/uL 4.4-11.0 [facility] Blood erythrocytes count (nu mber/volume)Ordered By: Dr. Azevedo on 05-16-2022 RBC (Bld) [#/Vol] 4.92 10*6/uL 4.6-6.2 [facility] Blood hemoglobin measurement (mass/volume)Ordered By: Dr. Azevedo on 05-16-2022 Hemoglobin (Bld) [Mass/Vol] 15.9 g/dL 13.0-16.5 [facility] Blood lymphocytes/100 leukoc ytesOrdered By: Dr. Azevedo on 05-16-2022 Lymphocytes/100 WBC (Bld) 23.3 % 19-41 [facility] Blood monocytes/100 leukocyt esOrdered By: Dr. Azevedo on 05-16-2022 Monocytes/100 WBC (Bld) 7.9 % 0-10 [facility] Blood platelet mean volumeOr dered By: Dr. Azevedo on 05-16-2022 Platelet mean volume (Bld) [Entitic vol] 10.3 fL 6.2-12.0 [facility] Determination of erythrocyte mean corpuscular volume (MCV)Ordered By: Dr. Azevedo on 05-16-2022 MCV (RBC) [Entitic vol] 95.7 fL 80-94 [facility] Hematocrit Auto (Bld) [Volum e fraction]Ordered By: Dr. Azevedo on 05-16-2022 Hematocrit (Bld) [Volume fraction] 47.1 % 40-54 [facility] Laboratory - Chemistry and C hemistry - challengeOrdered By: Dr. Azevedo on 05-16-2022 CO2 [Moles/Vol] 30.0 mmol/L 21.0-32.0 [facility] Urea nitrogen/Creatinine [Mass ratio] 17.3 mg/mg 10-20 [facility] Laboratory - Hematology and Cell countsOrdered By: Dr. Azevedo on 05-16-2022 Erythrocyte distribution width (RBC) [Entitic vol] 46.1 fL 35.1-43.9 [facility] Erythrocyte distribution width (RBC) [Ratio] 13.2 % 11.6-14.6 [facility] Immature granulocytes/100 WBC (Bld) 0.400 % 0.0-0.9 [facility] Comment on above: IG% - Immature Granu locytes (promyelocytes, myelocytes and metamyelocytes) > 1% indicates that a LEFT SHIFT is Present. MCH (RBC) [Entitic mass] 32.3 pg 27.0-32.0 [facility] Nucleated RBC/100 WBC (Bld) [Ratio] 0 % 0-5 [facility] MCHC Auto (RBC) [Mass/Vol]Or dered By: Dr. Azevedo on 05-16-2022 MCHC (RBC) [Mass/Vol] 33.8 g/dL 32-36 [facility] No Panel InformationOrdered By: Dr. Azevedo on 05-16-2022 Estimated GFR (MDRD) Amer 86 mL/min >60 [facility] Comment on above: GFR Calc Estimated GFR (MDRD) Non-Af Amer 71 mL/min >60 [facility] Comment on above: Non- GFR Calc Platelets bldOrdered By: Dr. Azevedo on 05-16-2022 Platelets (Bld) [#/Vol] 295 10*3/uL 150-450 [facility] Serum or plasma calcium todd urement (mass/volume)Ordered By: Dr. Azevedo on 05-16-2022 Calcium [Mass/Vol] 9.3 mg/dL 8.5-10.1 [facility] Serum or plasma creatinine m easurement (mass/volume)Ordered By: Dr. Azevedo on 05-16-2022 Creatinine [Mass/Vol] 1.10 mg/dL 0.70-1.30 [facility] Comment on above: The validity of the calculated GFR & GFRAA in patients over 70 years has not been determined. Clinical correlation is essential. Serum or plasma urea nitroge n measurement (mass/volume)Ordered By: Dr. Azevedo on 05-16-2022 Urea nitrogen [Mass/Vol] 19 mg/dL 7-18 [facility] Thin prep Papanicolaou smear with manual screeningOrdered By: Dr. Azevedo on 05-16-2022 Thin prep Papanicolaou smear with manual screening 4 5-15 [facility] Basophil percentageon 06-28- 2022 Bilirubin [Mass/Vol] 0.40 mg/dL 0.20-1.00 [facility] Work Phone: Comment on above: For patients on eltr ombopag therapy, use of Dimension [place] TBIL is not recommended. Chloride [Moles/Vol] 103 mmol/L 98-107 [facility] Work Phone: Glucose [Mass/Vol] 92 mg/dL 74-106 [facility] Work Phone: [phone] Potassium [Moles/Vol] 4.7 mmol/L 3.5-5.1 [facility] Work Phone: Protein [Mass/Vol] 7.5 g/dL 6.4-8.2 [facility] Work Phone: Sodium [Moles/Vol] 138 mmol/L 136-145 [facility] Work Phone: Laboratory - Chemistry and C hemistry - challengeon 12-04-2021 ALP [Catalytic activity/Vol] 80 U/L 45-117 [facility] Work Phone: ALT [Catalytic activity/Vol] 28 U/L 16-61 [facility] Work Phone: CO2 [Moles/Vol] 30.0 mmol/L 21.0-32.0 [facility] Work Phone: Cobalamin (Vitamin B12) [Mass/Vol] 545 pg/mL 211-911 [facility] Work Phone: Free T4 [Mass/Vol] 0.99 ng/dL 0.76-1.46 [facility] Work Phone: Globulin (S) [Mass/Vol] 3.2 g/dL 2.2-4.2 [facility] Work Phone: Urea nitrogen/Creatinine [Mass ratio] 17.7 mg/mg 10-20 [facility] Work Phone: No Panel Informationon 12-04 Estimated GFR (MDRD) Amer 100 mL/min >60 [facility] Work Phone: Comment on above: GFR Calc Estimated GFR (MDRD) Non-Af Amer 83 mL/min >60 [facility] Work Phone: Comment on above: Non- GFR Calc Vitamin D 25-Hydroxy 59.1 ng/mL [facility] Work Phone: Comment on above: Vitamin D 25(OH) Sta tus Range Deficiency <20 ng/mL (50nmol/L) Insufficiency 20 - 30 ng/mL (50 - 75 nmol/L) Sufficiency 30 - 100 ng/mL (75 - 250 nmol/L) Toxicity >100 ng/mL (>250 nmol/L) Serum or plasma albumin todd urement (mass/volume)on 12-04-2021 Albumin [Mass/Vol] 4.3 g/dL 3.2-5.0 [facility] Work Phone: Serum or plasma albumin/glob ulin mass ratioon 12-04-2021 Albumin/Globulin [Mass ratio] 1.3 {ratio} 0.9-2.4 [facility] Work Phone: Serum or plasma calcium todd urement (mass/volume)on 12-04-2021 Calcium [Mass/Vol] 9.4 mg/dL 8.5-10.1 [facility] Work Phone: Serum or plasma creatinine m easurement (mass/volume)on 12-04-2021 Creatinine [Mass/Vol] 0.96 mg/dL 0.70-1.30 [facility] Work Phone: Comment on above: The validity of the calculated GFR & GFRAA in patients over 70 years has not been determined. Clinical correlation is essential. Serum or plasma urea nitroge n measurement (mass/volume)on 12-04-2021 Urea nitrogen [Mass/Vol] 17 mg/dL 7-18 [facility] Work Phone: Thin prep Papanicolaou smear with manual screeningon 12-04-2021 Thin prep Papanicolaou smear with manual screening 21 U/L 15-37 [facility] Work Phone: Thin prep Papanicolaou smear with manual screening 5 5-15 [facility] Work Phone: Absolute lymphocyte counton 11-28-2021 Lymphocytes Auto (Unsp spec) [#/Vol] 2.17 10*3/uL 0.83-4.51 [facility] Work Phone: Basophil percentageon 2021 Basophils/100 WBC (Bld) 0.7 % 0-1 [facility] Work Phone: Bilirubin [Mass/Vol] 0.60 mg/dL 0.20-1.00 [facility] Work Phone: Comment on above: For patients on eltr ombopag therapy, use of Dimension [place] TBIL is not recommended. Chloride [Moles/Vol] 105 mmol/L 98-107 [facility] Work Phone: Cholesterol [Mass/Vol] 119 mg/dL <200 [facility] Work Phone: Comment on above: <200 mg/dL Desirable 200-240 mg/dL Borderline >240 mg/dL High Risk Eosinophils/100 WBC (Bld) 3.2 % 0-5 [facility] Work Phone: Glucose [Mass/Vol] 91 mg/dL 74-106 [facility] Work Phone: Neutrophils (Bld) [#/Vol] 5.4 10*3/uL 2.0-7.7 [facility] Work Phone: Neutrophils/100 WBC (Bld) 62.2 % 47-70 [facility] Work Phone: Potassium [Moles/Vol] 4.4 mmol/L 3.5-5.1 [facility] Work Phone: Protein [Mass/Vol] 7.0 g/dL 6.4-8.2 [facility] Work Phone: Sodium [Moles/Vol] 139 mmol/L 136-145 [facility] Work Phone: Triglyceride [Mass/Vol] 89 mg/dL <199 [facility] Work Phone: Comment on above: The drugs N-Acetylcy steine and Metamizole may falsely depress this assay.Serum Triglycerides Reference Interval Normal <150 mg/dL Borderline high 150 - 199 mg/dL High 200 - 499 mg/dL Very High > or = 500 mg/dL WBC (Bld) [#/Vol] 8.7 10*3/uL 4.4-11.0 [facility] Work Phone: Blood erythrocytes count (nu mber/volume)on 11-28-2021 RBC (Bld) [#/Vol] 4.75 10*6/uL 4.6-6.2 [facility] Work Phone: Blood hemoglobin measurement (mass/volume)on 11-28-2021 Hemoglobin (Bld) [Mass/Vol] 15.4 g/dL 13.0-16.5 [facility] Work Phone: Blood lymphocytes/100 leukoc yteson 11-28-2021 Lymphocytes/100 WBC (Bld) 24.9 % 19-41 [facility] Work Phone: Blood monocytes/100 leukocyt eson 11-28-2021 Monocytes/100 WBC (Bld) 8.5 % 0-10 [facility] Work Phone: Blood platelet mean volumeon 11-28-2021 Platelet mean volume (Bld) [Entitic vol] 10.1 fL 6.2-12.0 [facility] Work Phone: Determination of erythrocyte mean corpuscular volume (MCV)on 11-28-2021 MCV (RBC) [Entitic vol] 95.6 fL 80-94 [facility] Work Phone: Direct bilirubinon 2 Bilirubin.direct [Mass/Vol] 0.19 mg/dL 0.00-0.30 [facility] Work Phone: Hematocrit Auto (Bld) [Volum e fraction]on 11-28-2021 Hematocrit (Bld) [Volume fraction] 45.4 % 40-54 [facility] Work Phone: Laboratory - Chemistry and C hemistry - challengeon 11-28-2021 ALP [Catalytic activity/Vol] 79 U/L 45-117 [facility] Work Phone: ALT [Catalytic activity/Vol] 25 U/L 16-61 [facility] Work Phone: [phone] CO2 [Moles/Vol] 30.0 mmol/L 21.0-32.0 [facility] Work Phone: Globulin (S) [Mass/Vol] 3.0 g/dL 2.2-4.2 [facility] Work Phone: Urea nitrogen/Creatinine [Mass ratio] 23.5 mg/mg 10-20 [facility] Work Phone: Laboratory - Hematology and Cell countson 11-28-2021 Erythrocyte distribution width (RBC) [Entitic vol] 44.9 fL 35.1-43.9 [facility] Work Phone: Erythrocyte distribution width (RBC) [Ratio] 12.8 % 11.6-14.6 [facility] Work Phone: Immature granulocytes/100 WBC (Bld) 0.500 % 0.0-0.9 [facility] Work Phone: Comment on above: IG% - Immature Granu locytes (promyelocytes, myelocytes and metamyelocytes) > 1% indicates that a LEFT SHIFT is Present. MCH (RBC) [Entitic mass] 32.4 pg 27.0-32.0 [facility] Work Phone: Nucleated RBC/100 WBC (Bld) [Ratio] 0 % 0-5 [facility] Work Phone: MCHC Auto (RBC) [Mass/Vol]on 11-28-2021 MCHC (RBC) [Mass/Vol] 33.9 g/dL 32-36 [facility] Work Phone: No Panel Informationon 11-28 Estimated GFR (MDRD) Amer 103 mL/min >60 [facility] Work Phone: Comment on above: GFR Calc Estimated GFR (MDRD) Non-Af Amer 85 mL/min >60 [facility] Work Phone: Comment on above: Non- GFR Calc Thyroid Stimulating Hormone (TSH) 2.66 uIU/mL 0.358-3.74 [facility] Work Phone: Platelets bldon 11-28-2021 Platelets (Bld) [#/Vol] 243 10*3/uL 150-450 [facility] Work Phone: Serum or plasma albumin todd urement (mass/volume)on 11-28-2021 Albumin [Mass/Vol] 4.0 g/dL 3.2-5.0 [facility] Work Phone: Serum or plasma calcium todd urement (mass/volume)on 11-28-2021 Calcium [Mass/Vol] 9.0 mg/dL 8.5-10.1 [facility] Work Phone: Serum or plasma cholesterol in HDL measurement (mass/volume)on 11-28-2021 Cholesterol in HDL [Mass/Vol] 43 mg/dL >40 [facility] Work Phone: Comment on above: The drugs N-Acetylcy steine and Metamizole may falsely depress this assay. Reference Range HDL <40 mg/dL Low HDL Cholesterol HDL >or= 60 mg/dL High HDL Cholesterol Serum or plasma cholesterol in VLDL measurement (mass/volume)on 11-28-2021 Cholesterol in VLDL [Mass/Vol] 18 mg/dL 5-40 [facility] Work Phone: Serum or plasma creatinine m easurement (mass/volume)on 11-28-2021 Creatinine [Mass/Vol] 0.94 mg/dL 0.70-1.30 [facility] Work Phone: Comment on above: The validity of the calculated GFR & GFRAA in patients over 70 years has not been determined. Clinical correlation is essential. Serum or plasma low density lipoprotein (LDL) cholesterol measurement (mass/volume)on 11-28-2021 Cholesterol in LDL [Mass/Vol] 58 mg/dL 0-130 [facility] Work Phone: Serum or plasma urea nitroge n measurement (mass/volume)on 11-28-2021 Urea nitrogen [Mass/Vol] 22 mg/dL 7-18 [facility] Work Phone: Thin prep Papanicolaou smear with manual screeningon 11-28-2021 Thin prep Papanicolaou smear with manual screening 19 U/L 15-37 [facility] Work Phone: Thin prep Papanicolaou smear with manual screening 4 5-15 [facility] Work Phone: Absolute lymphocyte counton 07-27-2021 Lymphocytes Auto (Unsp spec) [#/Vol] 2.44 10*3/uL 0.83-4.51 [facility] Work Phone: Basophil percentageon 2021 Basophils/100 WBC (Bld) 0.7 % 0-1 [facility] Work Phone: Bilirubin [Mass/Vol] 0.50 mg/dL 0.20-1.00 [facility] Work Phone: Comment on above: For patients on eltr ombopag therapy, use of Dimension [place] TBIL is not recommended. Chloride [Moles/Vol] 108 mmol/L 98-107 [facility] Work Phone: Eosinophils/100 WBC (Bld) 5.3 % 0-5 [facility] Work Phone: Glucose [Mass/Vol] 82 mg/dL 74-106 [facility] Work Phone: Neutrophils (Bld) [#/Vol] 4.4 10*3/uL 2.0-7.7 [facility] Work Phone: Neutrophils/100 WBC (Bld) 55.0 % 47-70 [facility] Work Phone: Potassium [Moles/Vol] 3.8 mmol/L 3.5-5.1 [facility] Work Phone: [phone] Protein [Mass/Vol] 6.5 g/dL 6.4-8.2 [facility]: [phone] Sodium [Moles/Vol] 139 mmol/L 136-145 [facility] Work Phone: WBC (Bld) [#/Vol] 8.1 10*3/uL 4.4-11.0 [facility] Work Phone: Blood erythrocytes count (nu mber/volume)on 07-27-2021 RBC (Bld) [#/Vol] 4.62 10*6/uL 4.6-6.2 [facility] Work [facility]: Blood hemoglobin measurement (mass/volume)on 07-27-2021 Hemoglobin (Bld) [Mass/Vol] 14.4 g/dL 13.0-16.5 [facility] Work Phone: Blood lymphocytes/100 leukoc yteson 07-27-2021 Lymphocytes/100 WBC (Bld) 30.3 % 19-41 [facility] Work Phone: Blood monocytes/100 leukocyt eson 07-27-2021 Monocytes/100 WBC (Bld) 8.2 % 0-10 [facility] Work Phone: Blood platelet mean volumeon 07-27-2021 Platelet mean volume (Bld) [Entitic vol] 10.3 fL 6.2-12.0 [facility] Work Phone: Determination of erythrocyte mean corpuscular volume (MCV)on 07-27-2021 MCV (RBC) [Entitic vol] 92.9 fL 80-94 [facility] Work Phone: Hematocrit Auto (Bld) [Volum e fraction]on 07-27-2021 Hematocrit (Bld) [Volume fraction] 42.9 % 40-54 [facility] Work Phone: Laboratory - Chemistry and C hemistry - challengeon 07-27-2021 ALP [Catalytic activity/Vol] 77 U/L 45-117 [facility] Work Phone: [phone] ALT [Catalytic activity/Vol] 22 U/L 16-61 [facility] Work Phone: [phone] CO2 [Moles/Vol] 27.0 mmol/L 21.0-32.0 [facility] Work Phone: [phone] Globulin (S) [Mass/Vol] 3.0 g/dL 2.2-4.2 [facility] Work Phone: [phone] Urea nitrogen/Creatinine [Mass ratio] 20.7 mg/mg 10-20 [facility] Work Phone: Laboratory - Hematology and Cell countson 07-27-2021 Erythrocyte distribution width (RBC) [Entitic vol] 44.6 fL 35.1-43.9 [facility] Work Phone: [phone] Erythrocyte distribution width (RBC) [Ratio] 12.9 % 11.6-14.6 [facility] Work Phone: [phone] Immature granulocytes/100 WBC (Bld) 0.500 % 0.0-0.9 [facility] Work Phone: Comment on above: IG% - Immature Granu locytes (promyelocytes, myelocytes and metamyelocytes) > 1% indicates that a LEFT SHIFT is Present. MCH (RBC) [Entitic mass] 31.2 pg 27.0-32.0 [facility] Work Phone: Nucleated RBC/100 WBC (Bld) [Ratio] 0 % 0-5 [facility] Work Phone: [phone] MCHC Auto (RBC) [Mass/Vol]on 07-27-2021 MCHC (RBC) [Mass/Vol] 33.6 g/dL 32-36 [facility] Work Phone: No Panel Informationon 07-27 Estimated Creatinine Clearance Calc 102.75 ml/min [facility] Work Phone: Estimated GFR (MDRD) Amer 120 mL/min >60 [facility] Work Phone: Comment on above: GFR Calc Estimated GFR (MDRD) Non-Af Amer 99 mL/min >60 [facility] Work Phone: Comment on above: Non- GFR Calc Platelets bldon 07-27-2021 Platelets (Bld) [#/Vol] 248 10*3/uL 150-450 [facility] Work Phone: Serum or plasma albumin todd urement (mass/volume)on 07-27-2021 Albumin [Mass/Vol] 3.5 g/dL 3.2-5.0 [facility] Work Phone: Serum or plasma albumin/glob ulin mass ratioon 07-27-2021 Albumin/Globulin [Mass ratio] 1.2 {ratio} 0.9-2.4 [facility] Work Phone: Serum or plasma calcium todd urement (mass/volume)on 07-27-2021 Calcium [Mass/Vol] 8.6 mg/dL 8.5-10.1 [facility] Work Phone: Serum or plasma creatinine m easurement (mass/volume)on 07-27-2021 Creatinine [Mass/Vol] 0.82 mg/dL 0.70-1.30 [facility] Work Phone: Comment on above: The validity of the calculated GFR & GFRAA in patients over 70 years has not been determined. Clinical correlation is essential. Serum or plasma urea nitroge n measurement (mass/volume)on 07-27-2021 Urea nitrogen [Mass/Vol] 17 mg/dL -18 [facility] Work Phone: Thin prep Papanicolaou smear with manual screeningon 07-27-2021 Thin prep Papanicolaou smear with manual screening 16 U/L 15-37 [facility] Work Phone: Thin prep Papanicolaou smear with manual screening 4 5-15 [facility] Work Phone: No Panel Informationon 07-26 Troponin I High Sensitivity 6 pg/mL 3.0-78.0 [facility] Work Phone: Comment on above: Please Note: New Fatimah t Units and Gender Specific Reference Ranges. For more information see Policy Stat Procedure [place] High Sensitivity Troponin (TNIH) and attachments. D-Dimer Quantitative (PE/DVT) 0.30 FEU/ug/m 0.27-0.49 [facility] Work Phone: Comment on above: NORMAL D-Dimer level (<0.50) indicates no DVT or PE. Whole blood hemoglobin A1c/t otal hemoglobin ratio (mass fraction)on 07-26-2021 HbA1c (Bld) [Mass fraction] 5.7 % 3.8-5.6 [facility] Work Phone: Comment on above: Normal < 5.7 % Predi abetic 5.7 - 6.4 % Diabetic >or= 6.5 % Please note range changes. EKGon 03-08-2019 Ordered by an unspecified provider. [facility] BMPon 03-06-2019 Anion gap [Moles/Vol] 12 mmol/L 10 - 2 0 mmol/L [facility] Calcium [Mass/Vol] 9.2 mg/dL 8.4 - 10. 2 mg/dL [facility] Chloride [Moles/Vol] 106 mmol/L 98 - 10 8 mmol/L [facility] Creatinine [Mass/Vol] 1.02 mg/dL 0.8 - 1.3 mg/dL [facility] GFR/1.73 sq M predicted among non-blacks MDRD (S/P/Bld) [Vol rate/Area] The eGFR should be used for monitoring renal function only and not for medication dosing. [facility] GFR/1.73 sq M.predicted CKD-EPI (S/P/Bld) [Vol rate/Area] 77 >=60 mL/min/1.73 m2 [facility] Glucose [Mass/Vol] 134 mg/dL High 65 - 99 mg/dL [facility] HCO3 [Moles/Vol] 27 mmol/L 21 - 32 mmol/L [facility] Potassium [Moles/Vol] 4.0 mmol/L 3.5 - 5.1 mmol/L [facility] Sodium [Moles/Vol] 141 mmol/L 135 - 145 mmol/L [facility] Urea nitrogen [Mass/Vol] 16 mg/dL 8 - 25 mg/dL [facility] Urea nitrogen/Creatinine [Mass ratio] 15.7 mg/mg [facility] CBC WITH AUTO DIFFERENTIALon 03-06-2019 Basophils (Bld) [#/Vol] 0.06 10*3/uL [facility] Basophils/100 WBC (Bld) 0.6 % [facility] Eosinophils (Bld) [#/Vol] 0.26 10*3/uL [facility] Eosinophils/100 WBC (Bld) 2.7 % [facility] Erythrocyte distribution width (RBC) [Entitic vol] 12.7 % 11.6 - 14.8 % [facility] Hematocrit (Bld) [Volume fraction] 43.5 % 41 - 53 % [facility] Hemoglobin (Bld) [Mass/Vol] 15.0 g/dL 13.5 - 17.5 g/dL [facility] Immature granulocytes (Bld) [#/Vol] 0.05 10*3/uL [facility] Immature granulocytes/100 WBC (Bld) 0.50 % [facility] Comment on above: The IG parameter is the percentage of metamyelocytes, myelocytes, and promyelocytes. Lymphocytes (Bld) [#/Vol] 1.89 10*3/uL [facility] Lymphocytes/100 WBC (Bld) 19.4 % [facility] MCH (RBC) [Entitic mass] 31.9 pg 26 - 34 pg [facility] MCHC (RBC) [Mass/Vol] 34.5 g/dL 31 - 37 g/dL [facility] MCV (RBC) [Entitic vol] 92.6 fL 80 - 100 fL [facility] Monocytes (Bld) [#/Vol] 0.63 10*3/uL [facility] Monocytes/100 WBC (Bld) 6.5 % [facility] Neutrophils (Bld) [#/Vol] 6.87 10*3/uL [facility] Neutrophils/100 WBC (Bld) 70.3 % [facility] Nucleated RBC (Bld) [#/Vol] 0.00 10*3/uL [facility] Nucleated RBC/100 WBC (Bld) [Ratio] 0.0 % [facility] Platelet mean volume (Bld) [Entitic vol] 10.5 fL 9 - 15.5 fL [facility] Platelets (Bld) [#/Vol] 256 10*3/uL [facility] RBC (Bld) [#/Vol] 4.70 10*6/uL [facility] ealth WBC (Bld) [#/Vol] 9.76 10*3/uL [facility] ealt ECG 12-LEADon 03-06-2019 Atrial Rate 76 BPM [facility] P [place] 71 degrees [facility] P-R Interval 144 ms [facility] Q-T Interval 386 ms [facility] QRS Duration 80 ms [facility] QTC Calculation (Bezet) 434 ms [facility] R [place] 78 degrees [facility] T [place] 78 degrees [facility] Ventricular Rate 76 BPM [facility] th ECG Cart Interpretation see physician note for interpretation. Poor data quality, interpretation may be adversely affected Normal sinus rhythm with sinus arrhythmia Normal ECG Confirmed by Angi Antonio ([id number]) on 03/06/2019 10:56:03 PM [facility] Otheron 03-06-2019 Extra Tube Hold for add-ons. [facility] Comment on above: Auto resulted. Interpretation and review of laboratory results Abnormal [facility] TROPONINon 03-06-2019 Interpretation and review of laboratory results Abnormal [facility] Troponin I.cardiac [Mass/Vol] 19 % <20% of Baseline Troponin [facility] Troponin I.cardiac [Mass/Vol] 62 ng/L Critically high <=45 [facility] Troponin I.cardiac [Mass/Vol] Probable non-acute cardiac injury or late presentation of acute injury. [facility] Troponin I.cardiac [Mass/Vol] 52 ng/L Critically high <=45 [facility] Troponin I.cardiac [Mass/Vol] Possible acute cardiac injury. [facility] XR CHEST AP/PA AND LATon Interface[facility]/06/2019 5:40 PM EDT [...] suggest mild emphysema. [facility]/lab Workstation ID: [id number] [facility] EXAMINATION: XR CHES T AP/PA AND LAT [...] of the shoulders. No acute osseous abnormality. [facility] No acute cardiopulmonary process. Persistent mild flattening of the hemidiaphragms suggest mild emphysema. [facility]/lab Workstation ID: [id number] [facility] XR CHEST AP/PA AND LAT EXAMINATION: XR [...] Mar 06, 2019 5:38:16 PM EDT Normal [facility] Comment on above: Order Comment: Injur y/Trauma or Illness?:Illness/Other How long have you had these symptoms (acute/chronic)?:Acute Reason for exam?:chest pain, hx of recent stents History of cancer?:u Surgeries, chemotherapy, or radiation?:u Type of Exam?:Initial Additional signs and symptoms?:na [facility] 08-07-2018 [facility] HNO ID: [id number] Author: Barbara Paulino) REYNOLD Lindsey Service: Radiology Author Type: Clinical Ironer Type: Allied Health Filed: 08/07/2018 1:55 PM [...] Tierney August 07, 2018 1:55 PM Normal [facility] APTTon 08-07-2018 aPTT Coag time (Bld) 27.9 s Normal 23.0-32.4 [facility] Comment on above: Result Comment: Unfr actionated [...] laboratory APTT reagent in use throughout the [facility]. Performed By: #### C BCDIF, PT, PTT, CMP #### [facility] [address] [place] [address] CBC and Differentialon 08-07 Abs Baso 0.10 k/uL Normal <0.11 [facility] Comment on above: Performed By: #### C BCDIF, PT, PTT, CMP #### [facility] [address] [address] Abs [place] 0.90 k/uL High <0.87 [facility] Comment on above: Performed By: #### C BCDIF, PT, PTT, CMP #### [facility] [address] [address] Abs Neut 6.49 k/uL Normal 1.45-7.50 [facility] Comment on above: Performed By: #### C BCDIF, PT, PTT, CMP #### [facility] [address] [address] Basophils/100 WBC (Bld) 1.0 % Normal [facility] Comment on above: Performed By: #### C BCDIF, PT, PTT, CMP #### [facility] [address] [place] [address] Eosinophils #/vol (Bld) 0.31 10*3/uL Normal <0.46 [facility] Comment on above: Performed By: #### C BCDIF, PT, PTT, CMP #### [facility] [address] [place] [address] Eosinophils/100 WBC (Bld) 3.1 % Normal [facility] Comment on above: Performed By: #### C BCDIF, PT, PTT, CMP #### [facility] [address] [place] [address] Erythrocyte distribution width Ratio (RBC) 12.9 % Normal 11.5-15.0 [facility] Comment on above: Performed By: #### C BCDIF, PT, PTT, CMP #### [facility] [address] [place] [address] Hematocrit Volume Fraction (Bld) 48.9 % Normal 39.0-51.0 [facility] Comment on above: Performed By: #### C BCDIF, PT, PTT, CMP #### [facility] [address] [place] [address] Hemoglobin mass conc (Bld) 16.3 g/dL Normal 13.0-17.0 [facility] Comment on above: Performed By: #### C BCDIF, PT, PTT, CMP #### [facility] [address] [address] Lymphocytes #/vol (Bld) 2.24 10*3/uL Normal 1.00-4.00 [facility] Comment on above: Performed By: #### C BCDIF, PT, PTT, CMP #### [facility] [address] Lymphocytes/100 WBC (Bld) 22.3 % Normal [facility] Comment on above: Performed By: #### C BCDIF, PT, PTT, CMP #### [facility] [address] [address] MCH Entitic mass (RBC) 31.1 pG Normal 26.0-34.0 [facility] Comment on above: Performed By: #### C BCDIF, PT, PTT, CMP #### [facility] [address] [address] MCHC mass conc (RBC) 33.3 g/dL Normal 30.5-36.0 [facility] Comment on above: Performed By: #### C BCDIF, PT, PTT, CMP #### [facility] [address] [place] [address] MCV Entitic volume (RBC) 93.3 fL Normal 80.0-100.0 [facility] Comment on above: Performed By: #### C BCDIF, PT, PTT, CMP #### [facility] [address] [place] [address] Monocytes/100 WBC (Bld) 9.0 % Normal [facility] Comment on above: Performed By: #### C BCDIF, PT, PTT, CMP #### [facility] [address] [place] [address] Neutrophils/100 WBC (Bld) 64.6 % Normal [facility] Comment on above: Performed By: #### C BCDIF, PT, PTT, CMP #### [facility] [address] [id number] Platelet mean volume Entitic volume (Bld) 10.3 fL Normal 9.0-12.7 [facility] Comment on above: Performed By: #### C BCDIF, PT, PTT, CMP #### [facility] [address] [address] Platelets #/vol (Bld) 261 10*3/uL Normal 150-400 [facility] Comment on above: Performed By: #### C BCDIF, PT, PTT, CMP #### [facility] [address] [phone] RBC #/vol (Bld) 5.24 10*6/uL Normal 4.20-6.00 [facility] Comment on above: Performed By: #### C BCDIF, PT, PTT, CMP #### [facility] [address] [phone] WBC #/vol (Bld) 10.04 10*3/uL Normal 3.70-11.00 [facility] Comment on above: Performed By: #### C BCDIF, PT, PTT, CMP #### [facility] [address] [phone] CT ABD/PEL WO IVCONon 2018 CT ABD/PEL WO IVCON * * *Final Report* * * DATE OF EXAM: Aug 07 2018 1:54PM [facility] [place] [facility] - CT ABD/PEL WO IVCON / [...] hernia Nonspecific gastric wall thickening Prostate enlargement Guest Room Attendant: [facility] Transcribe Date/Time: Aug 07 2018 1:56P Dictated by : NADIA SHEA MD This examination was interpreted and the report reviewed and electronically signed by: NADIA SHEA MD on Aug 07 2018 2:34PM EST [id number] N Normal [facility] Comp Metabolic Panelon 08-07 Albumin mass conc 4.9 g/dL Normal 3.9-4.9 [facility] Comment on above: Performed By: #### C BCDIF, PT, PTT, CMP #### [facility] [address] [place] [address] ALP enzyme act/vol 84 U/L Normal 38-113 [facility] Comment on above: Performed By: #### C BCDIF, PT, PTT, CMP #### [facility] [address] [place], [place] [id number] ALT enzyme act/vol 16 U/L Normal 10-54 [facility] Comment on above: Performed By: #### C BCDIF, PT, PTT, CMP #### [facility] [address] [place] [address] Anion gap molar conc 9 mmol/L Normal 9-18 [facility] Comment on above: Performed By: #### C BCDIF, PT, PTT, CMP #### [facility] [address] [place] [address] AST enzyme act/vol 18 U/L Normal 14-40 [facility] Comment on above: Performed By: #### C BCDIF, PT, PTT, CMP #### [facility] [address] [place] [address] Bilirubin mass conc 0.6 mg/dL Normal 0.2-1.3 [facility] Comment on above: Performed By: #### C BCDIF, PT, PTT, CMP #### [facility] [address] [place] [address] Calcium mass conc 9.9 mg/dL Normal 8.5-10.2 [facility] Comment on above: Performed By: #### C BCDIF, PT, PTT, CMP #### [facility] [address] [place] [address] Chloride molar conc 101 mmol/L Normal 97-105 [facility] Comment on above: Performed By: #### C BCDIF, PT, PTT, CMP #### [facility] [address] [place] [address] CO2 molar conc 30 mmol/L Normal 22-30 [facility] Comment on above: Performed By: #### C BCDIF, PT, PTT, CMP #### [facility] [address] [place] [address] Creatinine mass conc 0.86 mg/dL Normal 0.73-1.22 [facility] Comment on above: Performed By: #### C BCDIF, PT, PTT, CMP #### [facility] [address] [place] [address] eGFR- Amer. >60 Normal [facility] Comment on above: Performed By: #### C BCDIF, PT, PTT, CMP #### [facility] [address] [place] [address] GFR/1.73 sq M predicted among non-blacks MDRD vol rate/area (S/P/Bld) mL/min/{1.73_m2} Normal [facility] Comment on above: Result Comment: [...] #### C BCDIF, PT, PTT, CMP #### [facility] [address] [place] [address] Glucose mass conc 99 mg/dL Normal 74-99 [facility] Comment on above: Result Comment: The [place] Diabetes Association (ADA) provides guidance for cutoff [...] Standards of Medical Care in Diabetes 2016, [place] [employer] Association. Diabetes Care. 2016.39(Suppl 1). Performed By: #### C BCDIF, PT, PTT, CMP #### [facility] [address] [place] [address] Potassium molar conc 4.3 mmol/L Normal 3.7-5.1 [facility] Comment on above: Performed By: #### C BCDIF, PT, PTT, CMP #### [facility] [address] [place] [address] Protein mass conc 7.7 g/dL Normal 6.3-8.0 [facility] Comment on above: Performed By: #### C BCDIF, PT, PTT, CMP #### [facility] [address] [place] [address] Sodium molar conc 140 mmol/L Normal 136-144 [facility] Comment on above: Performed By: #### C BCDIF, PT, PTT, CMP #### [facility] [address] [place] [address] Urea nitrogen mass conc 20 mg/dL Normal 9-24 [facility] Comment on above: Performed By: #### C BCDIF, PT, PTT, CMP #### [facility] [address] [facility] [phone] ED NOTEon 08-07-2018 ED NOTE HNO ID: [id number] Author: Margaret (Rn) AMINATA Lin Service: Nursing Author Type: Registered Nurse Type: ED Notes Filed: 08/07/2018 1:19 PM Note Text: Pt presents to ED with c/o hematuria and clots since yesterday. Pt went to [place] for same thing last night and was told to follow up with a urologist. The urologist that was recommended is out of town and he says the clots are getting bigger and more frequent Normal [facility] ED PROV NOTEon 08-07-2018 Protein mass conc HNO ID: [id number] Author: Arcadio Hess) Suze Service: (none) Author Type: Physician [employer] Us[employer] Type: ED Provider Notes Filed: 08/07/2018 10:53 PM Note Text: ED Provider Note Patient Name: Jaron Mireles SERVICE DATE: 08/07/18 History Patient presents with: Hematuria: with clots 63-year-old male presents emergency Department with complaints of hematuria. States he was seen at [facility] yesterday and had his bladder irrigated. States [...] pain. 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 PAST MEDICAL HISTORY Diagnosis Date [...] the following: Result Value Ref Range Abs Lycoming 0.90 (*) <0.87 k/uL All other components [...] hernia Nonspecific gastric wall thickening Prostate enlargement Guest Room Attendant: CHARLIE Transcribe Date/Time: Aug 07 2018 1:56P [...] SIGNATURE: DARRYL Nieto (Pa) 08/07/18 2253 Normal [facility] Protimeon 08-07-2018 Prothrombin time (PT) Coag time (PPP) 10.1 s Normal 9.7-13.0 [facility] Comment on above: Performed By: #### C BCDIF, PT, PTT, CMP #### [facility] [address] [facility] [phone] Prothrombin time (PT) Coag time (PPP) 1.0 s Normal 0.9-1.3 [facility] Comment on above: Result Comment: Love min K Antagonist (VKA) Therapeutic Range: INR 2 to 3 (Target INR of 2.5) Note: For patients treated with VKA drugs, such as warfarin, the [place] [employer] 2012 Guideline recommends [...] #### C BCDIF, PT, PTT, CMP #### [facility] [address] [facility] [phone] Urinalysison 08-07-2018 Bilirubin, Urine Color interference, unable to perform assay. Critically abnormal Negative [facility] Comment on above: Result Comment: Sugg est correlation with clinical findings and serum bilirubin if clinically indicated. Performed By: #### U A, UAMIC #### [facility] [address] [place] [address] Clarity Nom (U) Turbid Critically abnormal Clear [facility] Comment on above: Performed By: #### U A, UAMIC #### [facility] [address] [place] [address] Color Nom (U) Red Critically abnormal Yellow [facility] Comment on above: Performed By: #### U A, UAMIC #### [facility] [address] [place] [address] Glucose Ql (U) Color interference, unable to perform assay. Critically abnormal Negative [facility] Comment on above: Performed By: #### U A, UAMIC #### [facility] [address] [place] [address] Hemoglobin/Blood,Ur Color interference, unable to perform assay. Critically abnormal Negative [facility] Comment on above: Performed By: #### U A, UAMIC #### [facility] [address] [place] [address] Ketones Ql (U) Color interference, unable to perform assay. Critically abnormal Negative [facility] Comment on above: Performed By: #### U A, UAMIC #### [facility] [address] [place] [address] Leukest Color interference, unable to perform assay. Critically abnormal Negative [facility] Comment on above: Performed By: #### U A, UAMIC #### [facility] [address] [place] [address] Nitrite Ql (U) Color interference, unable to perform assay. Critically abnormal Negative [facility] Comment on above: Performed By: #### U A, UAMIC #### [facility] [address] [place] [address] pH (Bld) Color interference, unable to perform assay. Normal 5.0-8.0 [facility] Comment on above: Performed By: #### U A, UAMIC #### [facility] [address] [place] [address] Protein mass conc (U) Color interference , unable to perform assay. Critically abnormal Negative [facility] Comment on above: Performed By: #### U A, UAMIC #### [facility] [address] [place] [address] Specific [place], Ur Color interference, unable to perform assay. Normal 1.001-1.029 [facility] Comment on above: Performed By: #### U A, UAMIC #### [facility] [address] [address] Urobilinogen Qn (U) Color interference, unable to perform assay. Normal 0.2-1.0 [facility] Comment on above: Performed By: #### U A, UAMIC #### [facility] [address] [place] [address] Urine Cultureon 08-07-2018 Bacteria identified Cx Nom (U) Sp. Request/Comment: - Specimen received in preservative Culture Result - 50,000 - <100,000 CFU/ml Normal urogenital mary Normal [facility] Comment on above: Performed By: #### C BCDIF, PT, PTT, CMP #### [facility] [address] [place] [address] Urine Microscopic (FOR LAB U SE ONLY)on 08-07-2018 Bacteria LM.HPF #/area (Urine sed) Few Critically abnormal 0 [facility] Comment on above: Performed By: #### U A, UAMIC #### [facility] [address] [place] [address] Cast SEE COMMENT Normal 0 [facility] Comment on above: Result Comment: 0 Performed By: #### U A, UAMIC #### [facility] [address] [place] [address] RBC #/vol (U) Too numerous to count Critically abnormal 0-3 [facility] Comment on above: Performed By: #### U A, UAMIC #### [facility] [address] [place] [address] WBC #/vol (Bld) 10-30 Critically abnormal 0-5 [facility] Comment on above: Performed By: #### U A, UAMIC #### [facility] [address] [place] [address] CBC with Diffon 05-30-2017 Abs. Basophil 0.00 k/uL Normal 0.0-0.2 [facility] Comment on above: Result Comment: Perf ormed at [facility] [address] [place] [address] Performed By: #### Светлана FAST, CDP, LIPR, MG, TSHX, VD25 ####[facility] [place] [address] Abs.Neutrophil (Seg) 5.80 k/uL Normal 2.1-6.5 [facility] Comment on above: Performed By: #### Светлана FAST, CDP, LIPR, MG, TSHX, VD25 ####[place] [address] [facility] [place] [address] Auto Diff Performed YES Normal [facility] Comment on above: Performed By: #### Светлана FAST, CDP, LIPR, MG, TSHX, VD25 ####[place] [address] [place] [address] Basophils/100 WBC Auto (Bld) 0 % Normal 0-2 [facility] Comment on above: Performed By: #### Светлана FAST, CDP, LIPR, MG, TSHX, VD25 ####[place] [address] [facility] [place] [address] Eosinophils 0.60 10*3/uL High 0.0-0.4 [facility] Comment on above: Performed By: #### Светлана FAST, CDP, LIPR, MG, TSHX, VD25 ####[place] [address] [facility] [place] [address] Eosinophils/100 leukocytes 6 % High 0-5 [facility] Comment on above: Performed By: #### Z FAST, CDP, LIPR, MG, TSHX, VD25 ####[place] [address] [facility] [place] [address] Erythrocyte distribution width Auto Ratio (RBC) 13.4 % Normal 12.1-15.2 [facility] Comment on above: Performed By: #### Светлана FAST, CDP, LIPR, MG, TSHX, VD25 ####[facility] [place] [address] Erythrocytes (RBC) 5.24 10*6/uL Normal 4.5-5.9 [facility] Comment on above: Performed By: #### Z FAST, CDP, LIPR, MG, TSHX, VD25 ####[facility] [place] [address] Hematocrit (HCT) 48.8 % Normal 41-53 [facility] Comment on above: Performed By: #### Светлана FAST, CDP, LIPR, MG, TSHX, VD25 ####[facility] [place] [address] Hemoglobin mass conc (Bld) 16.3 g/dL Normal 13.5-17.5 [facility] Comment on above: Performed By: #### Светлана FAST, CDP, LIPR, MG, TSHX, VD25 ####[place] [address] [place] [address] Lymphocytes 2.00 10*3/uL Normal 1.0-4.8 [facility] Comment on above: Performed By: #### Светлана FAST, CDP, LIPR, MG, TSHX, VD25 ####[facility] [place] [address] Lymphocytes/100 leukocytes 22 % Normal 13-44 [facility] Comment on above: Performed By: #### Z FAST, CDP, LIPR, MG, TSHX, VD25 ####[facility] [place] [address] MCH 31.1 pg Normal 26-34 [facility] Comment on above: Performed By: #### Z FAST, CDP, LIPR, MG, TSHX, VD25 ####[facility] [place] [address] MCHC mass conc (RBC) 33.4 g/dL Normal 31-37 [facility] Comment on above: Performed By: #### Z FAST, CDP, LIPR, MG, TSHX, VD25 ####[facility] [phone] MCV 93.2 fL Normal 80-100 [facility] Comment on above: Performed By: #### Светлана FAST, CDP, LIPR, MG, TSHX, VD25 ####[facility] [place] [address] Monocytes 0.70 10*3/uL Normal 0.0-1.0 [facility] Comment on above: Performed By: #### Светлана FAST, CDP, LIPR, MG, TSHX, VD25 ####[place] [address] [place] [address] Monocytes/100 leukocytes 8 % Normal 5-9 [facility] Comment on above: Performed By: #### Светлана FAST, CDP, LIPR, MG, TSHX, VD25 ####[facility] [place] [address] Neutrophil (Seg) 64 % Normal 39-75 [facility] Comment on above: Performed By: #### Светлана FAST, CDP, LIPR, MG, TSHX, VD25 ####[facility] [place] [address] Platelets 256 10*3/uL Normal 140-450 [facility] Comment on above: Performed By: #### Z FAST, CDP, LIPR, MG, TSHX, VD25 ####[facility] [phone] WBC (Leukocytes) 9.0 10*3/uL Normal 3.5-11.0 [facility] Comment on above: Performed By: #### Светлана FAST, CDP, LIPR, MG, TSHX, VD25 ####[facility] [place] [address] Erythrocyte morphology NOT REPORTED Normal [facility] Comment on above: Performed By: #### Z FAST, CDP, LIPR, MG, TSHX, VD25 ####[facility] [place] [address] Granulocytes/100 WBC (Bld) NOT REPORTED Normal 0.00-0.30 [facility] Comment on above: Performed By: #### Z FAST, CDP, LIPR, MG, TSHX, VD25 ####[facility] [place] [address] Immature granulocytes #/vol (Bld) NOT REPORTED Normal 0 [facility] Comment on above: Performed By: #### Светлана FAST, CDP, LIPR, MG, TSHX, VD25 ####[facility] [place] [address] Platelet mean volume (PMV) NOT REPORTED Normal 6.0-12.0 [facility] Comment on above: Performed By: #### Светлана FAST, CDP, LIPR, MG, TSHX, VD25 ####[facility] [place] [address] Platelets NOT REPORTED Normal [facility] Comment on above: Performed By: #### Светлана FAST, CDP, LIPR, MG, TSHX, VD25 ####[facility] [place] [address] WBC Morphology NOT REPORTED Normal [facility] Comment on above: Performed By: #### Z FAST, CDP, LIPR, MG, TSHX, VD25 ####[facility] [place] [address] Lipid Profileon 05-30-2017 Cholesterol 254 mg/dL High <200 [facility] Comment on above: Result Comment: Chol esterol Guidelines: <200 Desirable 200-240 Borderline >240 Undesirable Performed By: #### Z FAST, CDP, LIPR, MG, TSHX, VD25 ####[facility] [place] [address] Cholesterol to HDL Ratio 4.9 {ratio} Normal <5 [facility] Comment on above: Performed By: #### Z FAST, CDP, LIPR, MG, TSHX, VD25 ####[facility] [place] [address] HDL Cholesterol 52 mg/dL Normal >40 [facility] Comment on above: Result Comment: HDL Guidelines: <40 Undesirable 40-59 Borderline >59 Desirable Performed By: #### Z FAST, CDP, LIPR, MG, TSHX, VD25 ####[place] [address] [place] [address] LDL Cholesterol 175 mg/dL High 0-130 [facility] Comment on above: Result Comment: LDL Guidelines: <100 Desirable 100-129 Near to/above Desirable 130-159 Borderline >159 UndesirableDirect (measured) LDL and calculated LDL are not interchangeable tests. Performed By: #### Z FAST, CDP, LIPR, MG, TSHX, VD25 ####[place] [address] [place] [address] Triglyceride 136 mg/dL Normal <150 [facility] Comment on above: Result Comment: Trig lyceride Guidelines: <150 Desirable 150- 199 Borderline 200-499 High >499 Very high Based on AHA Guidelines for fasting triglyceride, March 2012.Performed at [facility] [address] [place] [address] Performed By: #### Z FAST, CDP, LIPR, MG, TSHX, VD25 ####[place] [address] [place] [address] Cholesterol in VLDL mass conc NOT REPORTED Normal 1-30 [facility] Comment on above: Performed By: #### Z FAST, CDP, LIPR, MG, TSHX, VD25 ####[facility], [place] [phone] Magnesiumon 05-30-2017 Magnesium 2.3 mg/dL Normal 1.6-2.6 [facility] Comment on above: Result Comment: Perf ormed at [facility] [address] [place], [place] [phone] Performed By: #### Z FAST, CDP, LIPR, MG, TSHX, VD25 ####[facility] [place] [phone] Patient fasting?on 7 Patient fasting? YES Normal [facility] Comment on above: Result Comment: Perf ormed at [facility] [address] [facility] [place] [address] [phone] Performed By: #### Z FAST, CDP, LIPR, MG, TSHX, VD25 ####[address] [place] [address] [facility] [place] [phone] TSH w/reflex to FT4on 2016 Thyroid stimulating hormone (TSH) 3.87 m[IU]/L Normal 0.30-5.00 [facility] Comment on above: Result Comment: Perf ormed at [facility] [address] [facility] [place] [address] ([phone] Performed By: #### Z FAST, CDP, LIPR, MG, TSHX, VD25 ####[address] [facility], [place] [phone] Vitamin D 25 OHon 05-30-2017 Vitamin D 25 [place] 35.8 ng/mL Normal 30.0-100.0 [facility] Comment on above: Result Comment: Refe rence Range:Vitamin D status Range Deficiency <20 ng/mL Mild Deficiency 20-30 ng/mL Sufficiency 30-100 ng/mL Toxicity >100 ng/mLPerformed at [facility] [address] [facility] [place] [address] [phone] Performed By: #### Z FAST, CDP, LIPR, MG, TSHX, VD25 ####[facility] [place] [address] XR CHEST STANDARD TWO VWon 1 07-31-2016 XR CHEST STANDARD TWO VW TWO-VIEW CHESTREASON FOR STUDY: History of cardiac disease, follow-up evaluation.COMPARISON : None.REPORT: Trachea, mediastinum, and heart size are unremarkable. The lungs are clear and well aerated. No effusion or pneumothorax or nodules noted. Diaphragm and bony elements are intact.IMPRESSION: Nonacute two-view chest.Interpreted by:Octavio Jarrell, DOSigned by:Octavio Jarrell, DO05/30/17Final result Normal [facility] CBC with Diffon 05-22-2017 Basophils Auto #/vol (Bld) 0.1 K/mcL Normal 0-0.2 [facility] Comment on above: Performed By: #### C BCDIF, EDCTNI, CMET, LIPASE, NTPROBNP ####Unless otherwise noted, all testing performed by [address] [phone]: [id number] Director: Carrillo Willis M.D. Basophils/100 WBC Auto (Bld) 0.9 % Normal [facility] Comment on above: Performed By: #### C BCDIF, EDCTNI, CMET, LIPASE, NTPROBNP ####Unless otherwise noted, all testing performed by [address] [phone]: [id number] Director: Carrillo Willis M.D. Eosinophils 0.2 K/mcL Normal 0-0.5 [facility] Comment on above: Performed By: #### C BCDIF, EDCTNI, CMET, LIPASE, NTPROBNP ####Unless otherwise noted, all testing performed by [address] [phone]: [id number] Director: Carrillo Willis M.D. Eosinophils/100 leukocytes 2.4 % Normal [facility] Comment on above: Performed By: #### C BCDIF, EDCTNI, CMET, LIPASE, NTPROBNP ####Unless otherwise noted, all testing performed by [address] [phone]: [id number] Director: Carrillo Willis M.D. Erythrocyte distribution width Auto Ratio (RBC) 12.8 % Normal 10-14.3 [facility] Comment on above: Performed By: #### C BCDIF, EDCTNI, CMET, LIPASE, NTPROBNP ####Unless otherwise noted, all testing performed by [place] [phone]: [id number] Director: Carrillo Willis M.D. Erythrocytes (RBC) 5.09 M/mcL Normal 4.0-5.5 [facility] Comment on above: Performed By: #### C BCDIF, EDCTNI, CMET, LIPASE, NTPROBNP ####Unless otherwise noted, all testing performed by [address] [phone]: [id number] Director: Carrillo Willis M.D. Hematocrit (HCT) 47.7 % Normal 37.9-49.2 [facility] Comment on above: Performed By: #### C BCDIF, EDCTNI, CMET, LIPASE, NTPROBNP ####Unless otherwise noted, all testing performed by [address] [phone]: [id number] Director: Carrillo Willis M.D. Hemoglobin mass conc (Bld) 16.6 g/dL Normal 12.9-16.9 [facility] Comment on above: Performed By: #### C BCDIF, EDCTNI, CMET, LIPASE, NTPROBNP ####Unless otherwise noted, all testing performed by [address] [phone]: [id number] Director: Carrillo Willis M.D. Lymphocytes 1.7 K/mcL Normal 0.9-3.6 [facility] Comment on above: Performed By: #### C BCDIF, EDCTNI, CMET, LIPASE, NTPROBNP ####Unless otherwise noted, all testing performed by [address] [phone]: [id number] Director: Carrillo Willis M.D. Lymphocytes/100 leukocytes 19.4 % Normal [facility] Comment on above: Performed By: #### C BCDIF, EDCTNI, CMET, LIPASE, NTPROBNP ####Unless otherwise noted, all testing performed by [address] [phone]: [id number] Director: Carrillo Willis M.D. MCH 32.5 pg Normal 27.7-34.6 [facility] Comment on above: Performed By: #### C BCDIF, EDCTNI, CMET, LIPASE, NTPROBNP ####Unless otherwise noted, all testing performed by [address] [id number]: [id number] Director: Carrillo Willis M.D. MCHC mass conc (RBC) 34.8 g/dL Normal 32.9-35.5 [facility] Comment on above: Performed By: #### C BCDIF, EDCTNI, CMET, LIPASE, NTPROBNP ####Unless otherwise noted, all testing performed by [address] [id number]: [id number] Director: Carrillo Willis M.D. MCV 93.6 fL Normal 82.8-99.3 [facility] Comment on above: Performed By: #### C BCDIF, EDCTNI, CMET, LIPASE, NTPROBNP ####Unless otherwise noted, all testing performed by [address] [phone]: [id number] Director: Carrillo Willis M.D. Monocytes 0.6 K/mcL Normal 0.2-0.6 [facility] Comment on above: Performed By: #### C BCDIF, EDCTNI, CMET, LIPASE, NTPROBNP ####Unless otherwise noted, all testing performed by [address] [phone]: [id number] Director: Carrillo Willis M.D. Monocytes/100 leukocytes 6.8 % Normal [facility] Comment on above: Performed By: #### C BCDIF, EDCTNI, CMET, LIPASE, NTPROBNP ####Unless otherwise noted, all testing performed by [address] [phone]: [id number] Director: Carrillo Willis M.D. Neutrophils 6.3 K/mcL Normal 1.4-6.8 [facility] Comment on above: Performed By: #### C BCDIF, EDCTNI, CMET, LIPASE, NTPROBNP ####Unless otherwise noted, all testing performed by [address] [id number]: [id number] Director: Carrillo Willis M.D. Platelet mean volume (PMV) 8.4 fL Normal 6.6-10.8 [facility] Comment on above: Performed By: #### C BCDIF, EDCTNI, CMET, LIPASE, NTPROBNP ####Unless otherwise noted, all testing performed by [address] [phone]: [id number] Director: Carrillo Willis M.D. Platelets 219 K/mcL Normal 139-354 [facility] Comment on above: Performed By: #### C BCDIF, EDCTNI, CMET, LIPASE, NTPROBNP ####Unless otherwise noted, all testing performed by [address] [phone]: [id number] Director: Carrillo Willis M.D. Segmented Neut % 70.5 % Normal [facility] Comment on above: Performed By: #### C BCDIF, EDCTNI, CMET, LIPASE, NTPROBNP ####Unless otherwise noted, all testing performed by [address] [id number]: [id number] Director: Carrillo Willis M.D. WBC (Leukocytes) 9.0 K/mcL Normal 3.6-10.4 [facility] Comment on above: Performed By: #### C BCDIF, EDCTNI, CMET, LIPASE, NTPROBNP ####Unless otherwise noted, all testing performed by [address] [id number]: [id number] Director: Carrillo Willis M.D. CHEST PA AND LATERALon 05-22 CHEST PA AND LATERAL Final ReportAccession No: [id number] Performed: May 22 2017 11:59AMExamination: CHEST [...] Physician: JORGE GIRON D.O.Trans: : cc: Normal [facility] Comprehensive Metabolic Pane coral 05-22-2017 Alanine aminotransferase (ALT) 23 U/L Normal 14-65 [facility] Comment on above: Result Comment: This test result might be falsely depressed or falsely elevated onsamples drawn from patients taking Sulfasalazine and Sulfapyridine.Venipuncture should occur prior to taking either of these drugs. Performed By: #### C BCDIF, EDCTNI, CMET, LIPASE, NTPROBNP ####Unless otherwise noted, all testing performed by [address], [place] [phone]: [id number] Director: Carrillo Willis M.D. Albumin 4.1 g/dL Normal 3.2-5.2 [facility] Comment on above: Performed By: #### C BCDIF, EDCTNI, CMET, LIPASE, NTPROBNP ####Unless otherwise noted, all testing performed by [address] [phone]: [id number] Director: Carrillo Willis M.D. Alkaline phosphatase (ALP) 85 U/L Normal 40-150 [facility] Comment on above: Performed By: #### C BCDIF, EDCTNI, CMET, LIPASE, NTPROBNP ####Unless otherwise noted, all testing performed by [address] [phone]: [id number] Director: Carrillo Willis M.D. Aspartate aminotransferase (AST) 15 U/L Normal 0-45 [facility] Comment on above: Result Comment: This test result might be falsely depressed or falsely elevated onsamples drawn from patients taking Sulfasalazine and Sulfapyridine.Venipuncture should occur prior to taking either of these drugs. Performed By: #### C BCDIF, EDCTNI, CMET, LIPASE, NTPROBNP ####Unless otherwise noted, all testing performed by [address] [id number]: [id number] Director: Carrillo Willis M.D. Bilirubin (total) 0.4 mg/dL Normal 0.3-1.2 [facility] Comment on above: Performed By: #### C BCDIF, EDCTNI, CMET, LIPASE, NTPROBNP ####Unless otherwise noted, all testing performed by [address] [id number]: [id number] Director: Carrillo Willis M.D. Calcium 9.5 mg/dL Normal 8.4-10.2 [facility] Comment on above: Performed By: #### C BCDIF, EDCTNI, CMET, LIPASE, NTPROBNP ####Unless otherwise noted, all testing performed by [address] [id number]: [id number] Director: Carrillo Willis M.D. Chloride 104 mmol/L Normal 98-108 [facility] Comment on above: Performed By: #### C BCDIF, EDCTNI, CMET, LIPASE, NTPROBNP ####Unless otherwise noted, all testing performed by [address] [id number]: [id number] Director: Carrillo Willis M.D. CO2 29 mmol/L Normal 21-32 [facility] Comment on above: Performed By: #### C BCDIF, EDCTNI, CMET, LIPASE, NTPROBNP ####Unless otherwise noted, all testing performed by [address] [phone]: [id number] Director: Carrillo Willis M.D. Creatinine 0.91 mg/dL Normal 0.80-1.30 [facility] Comment on above: Performed By: #### C BCDIF, EDCTNI, CMET, LIPASE, NTPROBNP ####Unless otherwise noted, all testing performed by [address] [phone]: [id number] Director: Carrillo Willis M.D. eGFR (black) mL/min/{1.73_m2} Normal [facility] Comment on above: Result Comment: Afri can Micronesian GFR Calc Performed By: #### C BCDIF, EDCTNI, CMET, LIPASE, NTPROBNP ####Unless otherwise noted, all testing performed by [address] [phone]: [id number] Director: Carrillo Willis M.D. eGFR (non-black) mL/min/{1.73_m2} Normal [facility] Comment on above: Result Comment: Non- [...] ####Unless otherwise noted, all testing performed by [address] [phone]: [id number] Director: Carrillo Willis M.D. Glucose mass conc 105 mg/dL High 70-99 [facility] Comment on above: Result Comment: This test result might be falsely depressed or falsely elevated onsamples drawn from patients taking Sulfasalazine and Sulfapyridine.Venipuncture should occur prior to taking either of these drugs. Performed By: #### C BCDIF, EDCTNI, CMET, LIPASE, NTPROBNP ####Unless otherwise noted, all testing performed by [address] [phone]: [id number] Director: Carrillo Willis M.D. Potassium molar conc 4.3 mmol/L Normal 3.5-5.1 [facility] Comment on above: Performed By: #### C BCDIF, EDCTNI, CMET, LIPASE, NTPROBNP ####Unless otherwise noted, all testing performed by [address] [phone]: [id number] Director: Carrillo Willis M.D. Protein 7.4 g/dL Normal 6.0-8.0 [facility] Comment on above: Performed By: #### C BCDIF, EDCTNI, CMET, LIPASE, NTPROBNP ####Unless otherwise noted, all testing performed by [address] [id number]: [id number] Director: Carrillo Willis M.D. Sodium 140 mmol/L Normal 135-145 [facility] Comment on above: Performed By: #### C BCDIF, EDCTNI, CMET, LIPASE, NTPROBNP ####Unless otherwise noted, all testing performed by [address] [id number]: [id number] Director: Carrillo Willis M.D. Urea nitrogen 16 mg/dL Normal 8-25 [facility] Comment on above: Performed By: #### C BCDIF, EDCTNI, CMET, LIPASE, NTPROBNP ####Unless otherwise noted, all testing performed by [address] [phone]: [id number] Director: Carrillo Willis M.D. ED Cardiac Troponin-Ion 12- Troponin I.cardiac mass conc ng/mL Normal < 45 [facility] Comment on above: Result Comment: Elev ation [...] ####Unless otherwise noted, all testing performed by [address] [id number]: [id number] Director: Carrillo Willis M.D. Lipaseon 05-22-2017 Lipase 124 U/L Normal 73-393 [facility] Comment on above: Performed By: #### C BCDIF, EDCTNI, CMET, LIPASE, NTPROBNP ####Unless otherwise noted, all testing performed by [address] [phone]: [id number] Director: Carrillo Willis M.D. NT-Pro BNP, Serumon 05-22-20 17 BNP 52 pg/mL Normal 0-125 [facility] Comment on above: Performed By: #### C BCDIF, EDCTNI, CMET, LIPASE, NTPROBNP ####Unless otherwise noted, all testing performed by [address] [phone]: [id number] Director: Carrillo Willis M.D. Vital Signs Date Time Vital Sign Value Performing Clinician Facility 12-14-2024 10:55-0400 Body height 190.[address] Melvin Trujillo MD Work Phone: [facility] 12-14-2024 10:55-0400 Body mass index (BMI) [Ratio] 22.4 kg/m2 Dr. Melvin Trujillo MD Work Phone: [facility] 12-14-2024 10:55-0400 Body weight 81.[address] Melvin Trujillo MD Work Phone: [facility] 12-14-2024 10:55-0400 Diastolic blood pressure 76 mm[Hg] Dr. Melvin Trujillo MD Work Phone: [facility] 12-14-2024 10:55-0400 Heart rate 71 /min Dr. Melvin Trujillo MD Work Phone: [facility] 12-14-2024 10:55-0400 Respiratory rate 16 /min Dr. Melvin Trujillo MD Work Phone: [facility] 12-14-2024 10:55-0400 Systolic blood pressure 124 mm[Hg] Dr. Melvin Trujillo MD Work Phone: [facility] 10-04-2022 10:47-0400 Body height 190.[address] Melvin Trujillo Work Phone: [facility] 10-04-2022 10:47-0400 Body mass index (BMI) [Ratio] 20.7 kg/m2 Dr. Melvin Trujillo Work Phone: [phone] [place] [address] 10-04-2022 10:47-0400 Body weight 75.[address] Melvin Trujillo Work Phone: [facility] 10-04-2022 10:47-0400 Diastolic blood pressure 73 mm[Hg] Dr. Melvin Trujillo Work Phone: [facility] 10-04-2022 10:47-0400 Heart rate 68 /min Dr. Melvin Trujillo Work Phone: [facility] 10-04-2022 10:47-0400 Respiratory rate 18 /min Dr. Melvin Trujillo Work Phone: [facility] 10-04-2022 10:47-0400 SaO2% (BldA) [Mass fraction] 99 % Dr. Melvin Trujillo Work Phone: [facility] 10-04-2022 10:47-0400 Systolic blood pressure 131 mm[Hg] Dr. Melvin Trujillo Work Phone: [facility] 05-22-2022 10:28-0500 Body height 190.[address] Melvin Trujillo Work Phone: [facility] 05-22-2022 10:28-0500 Body weight 73.[address] Melvin Trujillo Work Phone: [facility] 05-21-2022 07:45-0500 Body mass index (BMI) [Ratio] 20.3 kg/m2 Dr. Melvin Trujillo Work Phone: [facility] 05-16-2022 09:22-0500 Body mass index (BMI) [Ratio] 20.3 kg/m2 Dr. Melvin Trujillo Work Phone: [facility] 05-16-2022 09:22-0500 Body weight 73.[address] Melvin Trujillo Work Phone: [facility] 05-16-2022 09:22-0500 Diastolic blood pressure 84 mm[Hg] Dr. Melvin Trujillo Work Phone: [facility] 05-16-2022 09:22-0500 Heart rate 79 /min Dr. Melvin Trujillo Work Phone: [facility] 05-16-2022 09:22-0500 Respiratory rate 16 /min Dr. Melvin Trujillo Work Phone: [facility] 05-16-2022 09:22-0500 Systolic blood pressure 142 mm[Hg] Dr. Melvin Trujillo Work Phone: [facility] 01-24-2022 08:50-0400 Body mass index (BMI) [Ratio] 20.2 kg/m2 Dr. Melvin Trujillo Work Phone: [facility] Work Phone: 01-24-2022 08:50-0400 Body temperature 97.8 [degF] Dr. Melvin Trujillo Work Phone: [facility] Work Phone: 01-24-2022 08:50-0400 Body weight 73.[address] Melvin Trujillo Work Phone: [facility] Work Phone: 01-24-2022 08:50-0400 Diastolic blood pressure 82 mm[Hg] Dr. Melvin Trujillo Work Phone: [facility] Work Phone: 01-24-2022 08:50-0400 Heart rate 79 /min Dr. Melvin Trujillo Work Phone: [facility] Work Phone: 01-24-2022 08:50-0400 Respiratory rate 17 /min Dr. Melvin Trujillo Work Phone: [facility] Work Phone: 01-24-2022 08:50-0400 SaO2% (BldA) [Mass fraction] 96 % Dr. Melvin Trujillo Work Phone: [facility] Work Phone: 01-24-2022 08:50-0400 Systolic blood pressure 149 mm[Hg] Dr. Melvin Trujillo Work Phone: [facility] Work Phone: 11-27-2021 10:31-0400 Body height 190.[address] Melvin Trujillo Work Phone: [facility] Work Phone: 11-27-2021 10:31-0400 Body mass index (BMI) [Ratio] 22.6 kg/m2 Dr. Melvin Trujillo Work Phone: [facility] Work Phone: 11-27-2021 10:31-0400 Body weight 82.[address] Melvin Trujillo Work Phone: [facility] Work Phone: 11-27-2021 10:31-0400 Diastolic blood pressure 74 mm[Hg] Dr. Melvin Trujillo Work Phone: [facility] Work Phone: 11-27-2021 10:31-0400 Heart rate 82 /min Dr. Melvin Trujillo Work Phone: [facility] Work Phone: 11-27-2021 10:31-0400 Respiratory rate 18 /min Dr. Melvin Trujillo Work Phone: [facility] Work Phone: 11-27-2021 10:31-0400 SaO2% (BldA) [Mass fraction] 94 % Dr. Melvin Trujillo Work Phone: [facility] Work Phone: 11-27-2021 10:31-0400 Systolic blood pressure 122 mm[Hg] Dr. Melvin Trujillo Work Phone: [facility] Work Phone: 08-21-2021 10:28-0400 Body height 190.[address] Melvin Trujillo Work Phone: [facility] Work Phone: 08-21-2021 10:28-0400 Body mass index (BMI) [Ratio] 23.6 kg/m2 Dr. eMlvin Trujillo Work Phone: [facility] Work Phone: 08-21-2021 10:28-0400 Body weight 85.[address] Melvin Trujillo Work Phone: [facility] Work Phone: 08-21-2021 10:28-0400 Diastolic blood pressure 80 mm[Hg] Dr. Melvin Trujillo Work Phone: [facility] Work Phone: 08-21-2021 10:28-0400 Heart rate 76 /min Dr. Melvin Trujillo Work Phone: [facility] Work Phone: 08-21-2021 10:28-0400 Respiratory rate 18 /min Dr. Melvin Trujillo Work Phone: [facility] Work Phone: 08-21-2021 10:28-0400 Systolic blood pressure 138 mm[Hg] Dr. Melvin Trujillo Work Phone: [facility] Work Phone: 08-21-2021 10:28-0400 Body height 190.[address] Melvin Trujillo Work Phone: [facility] Work Phone: 08-21-2021 10:28-0400 Body mass index (BMI) [Ratio] 23.6 kg/m2 Dr. Melvin Trujillo Work Phone: [facility] Work Phone: 08-21-2021 10:28-0400 Body weight 85.[address] Melvin Trujillo Work Phone: [facility] Work Phone: 08-21-2021 10:28-0400 Diastolic blood pressure 80 mm[Hg] Dr. Melvin Trujillo Work Phone: [facility] Work Phone: 08-21-2021 10:28-0400 Heart rate 76 /min Dr. Melvin Trujillo Work Phone: [facility] Work Phone: 08-21-2021 10:28-0400 Respiratory rate 18 /min Dr. Melvin Trujillo Work Phone: [facility] Work Phone: 08-21-2021 10:28-0400 Systolic blood pressure 138 mm[Hg] Dr. Melvin Trujillo Work Phone: [facility] Work Phone: 07-27-2021 13:30-0500 Body temperature 98.2 [degF] Dr. Melvin Trujillo Work Phone: [facility] Work Phone: 07-27-2021 13:30-0500 Diastolic blood pressure 59 mm[Hg] Dr. Melvin Trujillo Work Phone: [facility] Work Phone: 07-27-2021 13:30-0500 Heart rate 67 /min Dr. Melvin Trujillo Work Phone: [facility] Work Phone: 07-27-2021 13:30-0500 Respiratory rate 14 /min Dr. Melvin Trujillo Work Phone: [facility] Work Phone: 07-27-2021 13:30-0500 SaO2% (BldA) [Mass fraction] 96 % Dr. Melvin Trujillo Work Phone: [facility] Work Phone: 07-27-2021 13:30-0500 Systolic blood pressure 103 mm[Hg] Dr. Melvin Trujillo Work Phone: [facility] Work Phone: 07-27-2021 12:30-0500 Body temperature 98.2 [degF] Dr. Melvin Trujillo Work Phone: [facility] Work Phone: 07-27-2021 12:30-0500 Diastolic blood pressure 59 mm[Hg] Dr. Melvin Trujillo Work Phone: [facility] Work Phone: 07-27-2021 12:30-0500 Heart rate 67 /min Dr. Melvin Trujillo Work Phone: [facility] Work Phone: 07-27-2021 12:30-0500 Respiratory rate 14 /min Dr. Melvin Trujillo Work Phone: [facility] Work Phone: 07-27-2021 12:30-0500 SaO2% (BldA) [Mass fraction] 96 % Dr. Melvin Trujillo Work Phone: [facility] Work Phone: 07-27-2021 12:30-0500 Systolic blood pressure 103 mm[Hg] Dr. Melvin Trujillo Work Phone: [facility] Work Phone: 07-26-2021 19:54-0500 Body mass index (BMI) [Ratio] 22.8 kg/m2 Dr. Melvin Trujillo Work Phone: [facility] Work Phone: 07-26-2021 19:54-0500 Body weight 83.[address] Melvin Trujillo Work Phone: [facility] Work Phone: 07-26-2021 18:54-0500 Body mass index (BMI) [Ratio] 22.8 kg/m2 Dr. Melvin Trujillo Work Phone: [facility] Work Phone: 07-26-2021 18:54-0500 Body weight 83.[address] Melvin Trujillo Work Phone: [facility] Work Phone: 03-06-2019 17:00-0400 Pulse (Heart Rate) 72 /min [facility] 03-06-2019 17:00-0400 Pulse Oximetry 99 % [facility] 03-06-2019 15:30-0400 Respiratory Rate 18 /min [facility] 03-06-2019 13:00-0400 BP Diastolic 82 mm[Hg] [facility] 03-06-2019 13:00-0400 BP Systolic 122 mm[Hg] [facility] 03-06-2019 12:15-0400 Body Temperature 97.59 [degF] [facility] Encounters Encounter Date Encounter Type Care Provider Facility Start: 02-28-2025 Patient encounter procedure Kade Bright UTILITY MANAGER-C -Cat Scan [facility] Work Phone: Start: 02-28-2025 End: 02-28-2025 ambulatory Melvin Trujillo Facility:[facility] Start: 02-22-2025 End: 02-22-[address] Melvin Trujillo MD Work Phone: -Laboratory Start: 02-22-2025 End: 02-22-[address] Hilario Valladares MD -Laboratory Work Phone: Start: 02-22-2025 End: 02-22-2025 ambulatory Melvin Trujillo Facility:[facility] Start: 12-14-2024 End: 12-14-2024 Patient encounter procedure Chris Mirna Edwin ROMANO-C -[facility] Work Phone: Start: 12-14-2024 End: 12-14-[address] Melvin Trujillo MD Work Phone: -[facility] Start: 07-20-2024 End: 07-20-2024 ambulatory Melvin Trujillo Facility:[facility] Start: 09-23-2023 End: 09-23-2023 ambulatory [facility] Work Phone: Start: 09-23-2023 End: 09-23-2023 Patient encounter procedure [facility] Start: 05-08-2023 End: 05-08-2023 ambulatory [facility] Work Phone: Start: 05-08-2023 End: 05-08-2023 Patient encounter procedure [facility] Work Phone: Start: 01-21-2023 End: 01-21-[address] Melvin Trujillo Work Phone: [facility] Work Phone: Start: 01-21-2023 End: 01-21-[address] Melvin Trujillo Work Phone: [facility] Start: 11-26-2022 End: 11-26-[address] Melvin Trujillo Work Phone: [facility] Work Phone: Start: 11-26-2022 End: 11-26-[address] Melvin Trujillo Work Phone: [facility]-Cat Scan, [facility] Start: 11-06-2022 End: 11-06-[address] Vinayak Edmonds Facility:[id number] Start: 11-06-2022 End: 11-06-2022 Subsequent hospital visit by physician Vinayak Edmonds DO Work Phone: [facility] Comment on above: Encounter for screen ing for malignant neoplasm of colon; Polyp of colon; Essential (primary) hypertension; Pure hypercholesterolemia, unspecified; Benign prostatic hyperplasia without lower urinary tract symptoms; Chronic obstructive pulmonary disease, unspecified ([facility]) Start: 10-11-2022 End: 10-11-[address] Melvin Trujillo Work Phone: [facility] Work Phone: Start: 10-11-2022 End: 10-11-[address] Melvin Trujillo Work Phone: [facility]-Laboratory Start: 10-04-2022 End: 10-04-[address] Melvin Trujillo Work Phone: [facility] Start: 07-15-2022 End: 07-15-[address] Melvin Trujillo Work Phone: [facility] Work Phone: Start: 07-15-2022 End: 07-15-[address] Melvin Trujillo Work Phone: [facility]-Laboratory Start: 06-21-2022 Non-patient / Non-visit Dr. Marshal Trujillo Work Phone: [facility] Start: 06-21-2022 Non-patient / Non-visit Dr. Marshal Trujillo Work Phone: [facility] Start: 06-21-2022 End: 06-21-[address] Melvin Trujillo Work Phone: [facility] Work Phone: Start: 06-21-2022 End: 06-21-[address] Melvin Trujillo Work Phone: [facility]-Cardiovascula r Services Start: 05-22-2022 Non-patient / Non-visit Dr. Marshal Trujillo Work Phone: [facility] Start: 05-22-2022 End: 05-22-2022 Admission to same day surgery center Dr. Melvin Trujillo Work Phone: [facility]-Inventory Transcriber/Special Procedures Start: 05-22-2022 End: 05-22-[address] Melvin Trujillo Work Phone: [facility] Work Phone: Start: 05-16-2022 End: 05-16-[address] Melvin Trujillo Work Phone: [facility] Work Phone: Start: 05-16-2022 End: 05-16-[address] Melvin Trujillo Work Phone: [facility]-Radiology, [facility] Start: 05-16-2022 End: 05-16-[address] Melvin Trujillo Work Phone: [facility] Start: 01-24-2022 End: 01-24-[address] Melvin Trujillo Work Phone: [facility]-Pulmonary Medicine [facility] Start: 12-04-2021 End: 12-04-[address] Melvin Trujillo Work Phone: [facility] Start: 11-28-2021 End: 11-28-[address] Melvin Trujillo Work Phone: [facility]-Cardiovascula r Services Start: 11-27-2021 End: 11-27-[address] Melvin Trujillo Work Phone: [facility] Start: 11-20-2021 End: 11-20-[address] Melvin Trujillo Work Phone: [facility]-Cat Scan, [facility] Start: 09-04-2021 End: 09-04-[address] Melvin Trujillo Work Phone: [facility]-Cardiovascula r Services Start: 08-21-2021 End: 08-21-[address] Melvin Trujillo Work Phone: [facility] Start: 07-27-2021 Non-patient / Non-visit Dr. Marshal Trujillo Work Phone: [facility] Inpatient Physicians Start: 07-27-2021 Non-patient / Non-visit Dr. Marshal Trujillo Work Phone: [facility] Start: 07-26-2021 Non-patient / Non-visit Dr. Marshal Trujillo Work Phone: [facility] Start: 07-26-2021 End: 07-27-2021 Evaluation and management of inpatient Dr. Melvin Trujillo Work Phone: [facility]-Progressive Care Unit Start: 07-17-2020 End: 07-17-2020 Orders Only Ludy Jasmyne Mitchell Work Phone: [facility] Start: 07-20-2019 End: 07-24-2019 Patient encounter procedure TYSHAWN HAYDEN [facility] Start: 03-06-2019 End: 03-06-2019 Emergency department patient visit [facility] EN[facility]QUE [facility] Start: 03-06-2019 End: 03-06-2019 Emergency department patient visit Yariel Stewartganga Mercado Work Phone: [facility] Emergency Department Comment on above: Chest pain, unspecif ied type (Primary Dx) Start: 08-07-2018 End: 08-07-2018 Emergency department patient visit [facility] Start: 05-30-2017 End: 05-31-2017 [facility] Start: 05-22-2017 End: 05-22-2017 Emergency department patient visit Carrillo Bernal Facility:[facility] Date Procedure Procedure Detail Performing Clinician Start: [...] 11-26-[address] Melvin Robison [facility] Work Phone: Start: 11-06-2022 SURGICAL PATHOLOGY RESULTS Vinayak Bushra Grey DO Work Phone: Start: 11-06-2022 Colonoscopy stoma dx including collj spec spx Melvin Trujillo MD Work Phone: Start: 11-06-2022 Colonoscopy Vinayak liu DO Work Phone: Start: 05-16-2022 Plain chest X-ray Dr. Jackie Trujillo Work Phone: Start: 11-20-[address] Melvin Robison [facility] Work Phone: Start: 07-26-2021 Plain [...] of coronary artery stent placement Chris Pineda UTILITY MANAGERShavonC Comment on above: WAB-RZE-Myxa LCx w/ 2.5 x 8 mm Elunir [...] 11-06-2032 Screening for malignant neoplasm of colon [facility] Start: 02-07-2023 Influenza vaccination Influenza Vaccine (#1) [facility] Start: 07-27-2021 Patient discharge [facility] Work Phone: Start: 07-27-2021 Notification of physician [facility] Work Phone: Start: 07-27-2021 Patient education [facility] Work Phone: Start: 07-27-2021 Pulse taking [facility] Work Phone: Start: 07-27-2021 Taking patient vital signs [facility] Work Phone: Start: 07-27-2021 Wound care [facility] Work Phone: Start: 07-27-2021 [facility] Work Phone: Start: 07-26-2021 Medication not administered [facility] Work Phone: Start: 07-26-2021 End: 07-26-2021 [facility] Work Phone: Start: 07-26-2021 Following clinical pathway protocol [facility] Work Phone: Start: 07-26-2021 Assessment of risk of venous thromboembolism [facility] Work Phone: Start: 07-26-2021 End: 07-26-2021 Catheterization of vein [facility] Work Phone: Start: 07-26-2021 Incentive spirometry [facility] Work Phone: Start: 07-26-2021 Inhalation therapy procedure [facility] Work Phone: Start: 07-26-2021 Insertion of catheter into peripheral vein [facility] Work Phone: Start: 07-26-2021 Measuring intake and output [facility] Work Phone: Start: 07-26-2021 Providing care according to standard [facility] Work Phone: Start: 07-26-2021 Provision of activity privileges [facility] Work Phone: Start: 07-26-2021 Referral to marine designer [facility] Work Phone: Start: 07-26-2021 Admission procedure [facility] Work Phone: Start: 02-08-2020 Influenza vaccination given Sequential Influenza Vaccine (#1) [facility] Start: 2019 Pneumococcal vaccination Pneumococcal Vaccine Age 65+ (1 of 2 - PCV13) [facility] Start: 02-07-2019 Influenza vaccination given SEQUENTIAL INFLUENZA VACCINE (#1) [facility] Start: 2004 Administration of herpes zoster vaccine Zoster Vaccines (1 of 2) [facility] Start: 2004 Screening for malignant neoplasm of colon [facility] Start: 2004 Zoster Vaccines (1 of 2) Zoster Vaccines (1 of 2) [facility] Start: 1976 DTaP/Tdap/Td Vaccines (1 - Tdap) DTaP/Tdap/Td Vaccines (1 - Tdap) [facility] Start: 1972 Hepatitis C antibody, confirmatory test Hepatitis C Screening [facility] Start: 1972 Hepatitis C screening Hepatitis C Screening [facility] Start: 1970 COVID-19 Vaccine (1 of 2) COVID-19 Vaccine (1 of 2) [facility] Start: 1966 Adolescent depression screening assessment Depression Screening (PHQ9) [facility] Start: 1960 Pneumococcal Vaccine: 65+ Years (1 - PCV) Pneumococcal Vaccine: 65+ Years (1 - PCV) [facility] Start: 1957 History and physical examination, annual for health maintenance Wellness Visit [facility] Start: 1954 COVID-19 Vaccine (#1) COVID-19 Vaccine (#1) [facility] Start: 1954 Fall risk assessment Falls Risk Assessment [facility] Start: 1954 Hepatitis C antibody, confirmatory test HEPATITIS C SCREENING [facility] Start: 1954 Lipid panel Lipid Panel [facility] Start: 1954 Prostate specific antigen measurement PSA Level [facility] Start: 1954 Screening for malignant neoplasm of colon [facility] Start: 1954 Tetanus vaccination [facility] Start: 1954 Yearly Adult Physical Yearly Adult Physical [facility] Catheterization of [facility] Work Phone: Catheterization of l [facility] Exercise tolerance test [facility] Work Phone: Measurement of respi ratory function [facility] Work Phone: Patient Education ED Chest Pain, Noncardiac [facility] Work Phone: Patient referral [facility] Work Phone: Payers Date Payer Category Payer Self-pay [id number] 2022 Unknown [id number] 2019 Medicare [id number] 2019 Medicare MEDICARE MEDICAR E PART A & B [id number] 2019-Present [place] [id number] 2014 Unknown [id number] 2011 Unknown [id number] 2011 Unknown MMO MEDICAL MUTU AL SUPERMED CLASSIC xxxxxxxxxxxx 2011-Present xxxxxxxxxxxx [id number] 2011 Unknown MMO MEDICAL MUTU AL SUPERMED CLASSIC [id number] 2011-Present [id number] 1954 Unknown [id number] 1954 Unknown [id number] 1954 Unknown [id number] 9 Unknown [id number] Unknown [id number] Unknown [id number] Unknown [id number] Social History Date Type Detail Facility Tobacco smoking status NHIS Unknown if ever smoked [facility] Start: 1955 Sex Assigned At Not on file [facility] Start: 08-21-2021 End: 10-04-2022 Tobacco smoking status NHIS Unknown if ever smoked [facility] Start: 08-26-2018 Cigarettes [facility] Start: 1955 Sex Assigned At Male W [facility] Gender identity Not on file [facility] Start: 12-14-2024 Tobacco smoking status NHIS Smokes tobacco daily (finding) [facility] Medical Equipment Procedure Code Equipment Code Equipment [...] Assessment Result Facility 07-27-2021 Functional status Ambulates;Bedrest [facility] Work Phone: 07-27-2021 Functional status Assistive Devices None [facility] Work Phone: Mental Status Date Assessment Result Facility 07-27-2021 Cognitive function Voice/Name [facility] Work Phone: Clinical Notes 03-04-2019 to 12-14-2024 Note Date & Type Note Facility 12-14-2024 Evaluation note Diagnosis Onset Date Resolution Essential (primary) hypertension chronic December 14, 2024 10:20am History of coronary artery stent placement March 04, 2019 chronic December 14, 2024 10:20am Hyperlipidemia chronic December 14, 2024 10:20am Nicotine dependence chronic December 14, 2024 10:20am [facility] Work Phone: 1(323) 951-595205-31-2023 NotePatient Name: Jaron Mireles Procedure Date: 11/06/2022 2:21 PM Date of : 1955 Admit Type: Outpatient Site: [facility] Proc RM 1 Ethnicity: Not or Race: White Attending MD: Vinayak Edmonds DO, [id number] Procedure: Colonoscopy Indications: Surveillance: Personal history of colonic polyps (unknown histology) on last colonoscopy more than 5 years ago Providers: Vinayak Edmonds DO (Doctor), Damaris Ferrari RN (Nurse), Joel Sanchez, Ironer Referring: Melvin Trujillo MD Medicines: Midazolam 7.5 [...] the patient. 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 c Essential (primary) hypertension chronic Hyperlipidemia chronic History of coronary artery stent placement February 082018 resolved Fatigue acute Essential (primary) hypertension chronic Hyperlipidemia chronic History of coronary artery stent placement February 082018 resolved [facility] Work Phone: 1(997) 800-674309-26-2019 Evaluation note* Diagnosis Onset Date Resolution Status Nicotine dependence chronic Obstructive Sleep Apnea-Hypopnea Syndrome noneactive Chest pain acute Hyperlipidemia chronic History of coronary artery stent placement February 082018 resolved [facility] Work Phone: 1([phone]) 923-831209-26-2019 Evaluation note* Diagnosis Onset Date Resolution Status Chest pain acute Hyperlipidemia chronic History of coronary artery stent placement February 082018 resolved [facility] Work Phone: 1([phone]) 886-714509-26-2019 Evaluation note* Diagnosis Onset Date Resolution Status Essential (primary) hypertension chronic History of coronary artery stent placement February 082018 chronic Hyperlipidemia chronic [facility] Work Phone: 1([phone]) 870-930109-26-2019 Evaluation note* Diagnosis Onset Date Resolution Status Admit Date Essential (primary) hypertension chronic December 14, 2024 10:20am History of coronary artery stent placement March 04, 2019 chronic December 14, 025 10:20am Hyperlipidemia chronic December 14, 2024 10:20am Nicotine dependence chronic December 14, 2024 10:20am 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 Work Phone: Evaluation noteNo assessment information available [facility] Work Phone: Reason for referral (narrative)No [facility] for [facility] Work Phone: Summary Purpose Family History No Family History Records Found Relationship Condition Age at Onset Recorded Date/T izaiah brother Cerebrovascular accident (CVA) Unknown Diabetes mellitus Unknown sister Diabetes mellitus Unknown Hypertension Unknown son Hypertension Unknown father Myocardial infarction 41 Advance Directives No Advanced Directives Records FoundDocuments on File Type Date Recorded Patient 3D Technologist Expl anation Advance Directives and Livin g Will 03/06/2019 1:04 PM Advance Directive Response Recorded Date/ Time Advance Directives Yes March 12, 2019 9:06am Living Will Yes July 26, 2 022 8:54pm Power of Lean Manager Yes July 26, 2021 8:54pm Advance Directive Response Recorded Date/ Time Name of Medical Power of Lean Manager Kenzie Mireles - July 26, 2021 8:54pm Advance Directives Yes March 12, 2019 9:06am Living Will Yes July 26 8:54pm Power of Lean Manager Yes July 26, 2021 8:54pm Advance Directive Response Recorded Date/ Time Advance Directives on File Yes Decem 2021 10:28am Name of Medical Power of Lean Manager Claudia Mireles-w gurpreet May 22, 2022 10:28am Advance Directives Yes May 10:28am Living Will Yes May 22 10:28am Power of Lean Manager Yes May 22, 2022 10:28am Advance Directive Response Recorded Date/ Time Advance Directives Yes May 11:28am Living Will Yes May 22 11:28am Power of Lean Manager Yes May 22, 2022 11:28am Advance Directive Response Recorded Date/ Time Advance Directives Yes May 10:28am Living Will Yes May 22 10:28am Power of Lean Manager Yes May 22, 2022 10:28am Advance Directive Response Recorded Date/ Time Living Will Yes May 22 11:28am Do you have a Healthcare Power of Lean Manager? 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 Essential (primary) hypertension Hyperlipidemia History of coronary artery stent placement Chief Complaint CHEST PAIN CHEST PAIN CHEST PAIN CHEST PAIN CHEST PAIN 3wk fu CAD NICOTINE DEPENDENCE Reason for Visit Chest pain 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 pectoris Essential (primary) hypertension Hyperlipidemia History of coronary artery stent placement Chief Complaint 3wk fu CAD NICOTINE DEPENDENCE 3 M FU Peripheral vascular disease, unspecified Reason for Visit Atherosclerotic hear t disease ramona coronary artery w/angina pectoris Essential (primary) hypertension [...] section and content) DATE CREATED AUTHOR 11/27/2017 [facility] DATE CREATED AUTHOR AUTHOR'S ORGANIZ ATION 12/02/2017 [facility] DATE CREATED AUTHOR AUTHOR'S ORGANIZ ATION 08/10/2018 [facility] DATE CREATED AUTHOR AUTHOR'S ORGANIZ ATION 07/24/2019 [facility] DATE CREATED AUTHOR AUTHOR'S ORGANIZ ATION 11/19/2022 [facility] DATE CREATED AUTHOR AUTHOR'S ORGANIZ ATION 11/19/2022 [facility] DATE CREATED AUTHOR AUTHOR'S ORGANIZ ATION 04/02/2025 [facility] Reason for Visit (unrecogniz ed section [...] y.o. : 1955 VISIT DATE: 03/06/2019 CSN: [id number] PCP: Melvin Trujillo MD Chief Complaint Patient presents with Chest Pain Is a 63-year-old with known coronary artery disease who states he just had 2 stents placed at [facility] this week coming to the emergency [...] file Gets together: Not on file Attends hoahaoism service: Not on file Active member of [...] consult with his primary care physician or marine designer next week. The patient has been informed [...] Discontinue: Error Luis Enrique Hollis MD 03/06/19 [id number] Luis Enrique Hollis MD 03/06/19 [id number] Bed: 15 Expected date: 03/06/19 Expected time: [...] MD Primary Care Provider Active Chris Pineda UTILITY MANAGER, UTILITY MANAGER-C Attending Provider Active Team Status: Active Member Role Status Dates Dr. Melvin Trujillo MD Primary Care Provider Active Dr. Keith Azevedo MD Attending Provider Active Team Status: Inactive Member Role Status Dates Dr. Melvin Trujillo MD Primary Care Provider Active Chris Pineda UTILITY MANAGER, UTILITY MANAGER-C Attending Provider Active Team Status: Inactive Member Role Status Dates Dr. Melvin Trujillo MD Primary Care Provider Active Dr. eKith Azevedo MD Attending Provider, Referring Pro vider Active Team Status: Inactive Member Role Status Dates Dr. Melvin Trujillo MD Primary Care Provider Active Dr. Hilario Valladares MD Attending Provider, Referr ing Provider Active Team Status: Inactive Member Role Status Dates Dr. Melvin Trujillo MD Primary Care Provider, Referring P rovider Active Elsy Briceno UTILITY MANAGER, UTILITY MANAGER-C Active Chris H Roof UTILITY MANAGER, UTILITY MANAGER-C Attending Provider Active Team Status: Inactive Member Role Status Dates Dr. Melvin Trujillo MD Primary Care Provider Active Chris Pineda UTILITY MANAGER, UTILITY MANAGER-C Attending Provider, Referring Pro vider Active Team Status: Inactive Member Role Status Dates Dr. Melvin Trujillo MD Primary Care Provide r, Attending Provider, Referring Provider Active Chris Pineda UTILITY MANAGER, UTILITY MANAGER-C Other Provider Active Team Status: Inactive Member Role Status Dates Dr. Melvin Trujillo MD Primary Care Provider, Attending Florence quach Active Nursing Home Manager Relationship Specialty Start Date End Date Melvin Trujillo MD [address] [place] [address] PCP - General 11/06/22 Team Status: Inactive [...] 2024 End: December 14, 2024 Chris Pineda UTILITY MANAGER, UTILITY MANAGER-C Attending Provider Active S tart: December [...] 2024 End: December 14, 2024 Chris Pineda UTILITY MANAGER, UTILITY MANAGER-C Attending physician Active Start: December 14, [...] BE BASED ON THE PRIMARY CLINICAL RECORDS. [employer]. provides no warranty or guarantee of the accuracy or completeness of information in this document.
== END | disposition home or self-care (01) ==
LOC: LABSPEC 14:07
PROVIDERS: PCP Family Medicine; Visit Provider Family Medicine
DX: N40.0 Benign prostatic hyperplasia without lower urinary tract symptoms (principal)
CPT/HCPCS: 87086